=== PATIENT | male | born 1960 ===

== ENCOUNTER 2016-05-22 14:35 | Inpatient (IN) | payer BC, OTHER ==
--- NOTE | 2016-05-22 15:55 | RAD ---
HISTORY: chest pain COMPARISON: 04/22/2014 TECHNIQUE: Chest PA and lateral FINDINGS: LUNGS: There is consolidation in the right upper lobe. There is superior retraction of the horizontal and mild fullness in the right hilum. PLEURA: No significant pleural effusion identified. No pneumothorax apparent. CARDIOVASCULAR: The heart is normal in size. OSSEOUS STRUCTURES: No significant abnormalities. VISUALIZED UPPER ABDOMEN: Normal. OTHER FINDINGS: None. IMPRESSION: Findings are most compatible with right upper lobe pneumonia. Follow-up after medical management is recommended to ensure complete resolution and exclude postobstructive pneumonia related to a central mass.
[2016-05-22 16:17] LABS: BASO % 0.6 % (0.0-2.0); EOS % 0.4 % (0.0-4.0); HEMATOCRIT 46.9 % (35.0-51.0); LYMPH % 15.5 % (20.0-40.0); MEAN CELL VOLUME 82.4 fl (80.0-94.0); MEAN CORPUSCULAR HEMOGLOBIN 27.2 pg (27.0-31.0); MEAN PLATELET VOLUME 8.9 fl (7.2-11.7); MONO # 0.7 K/uL (0.0-0.8); MONO % 10.4 % (0.0-10.0); NEUT # 4.6 K/uL (1.8-7.0); NEUT % 73.1 % (50.0-75.0); RED CELL DISTRIBUTION WIDTH 13.8 % (11.5-14.5); WHITE BLOOD COUNT 6.3 K/uL (4.8-10.8)
[2016-05-22 16:25] LABS: ALKALINE PHOSPHATASE 69 U/L (38-126); ALT/SGPT 40 U/L (21-72); AST/SGOT 104 U/L (17-59); BILIRUBIN,TOTAL 1.2 mg/dl (0.2-1.3); BLOOD UREA NITROGEN 16 mg/dl (9-20); CALCIUM 10.3 mg/dL (8.4-10.2); CARBON DIOXIDE 21 mmol/L (22-30); CHLORIDE 104 mmol/L (98-107); GFR AFRICAN-AMERICAN > 60; GLUCOSE,RANDOM 86 mg/dL (75-110); SODIUM 145 mmol/l (132-148)
[2016-05-22] MEDS ORDERED: Azithromycin 500 MG in Sodium Chloride 0.9% 250 ML IVPB STA (16:46)
--- NOTE | 2016-05-22 16:53 | ED PDOC ---
HPI: Chest Pain Time Seen by Provider: 05/22/16 15:17 Chief Complaint (Nursing): Back Pain Chief Complaint (Provider): Chest Pain History Per: Patient History/Exam Limitations: no limitations Onset/Duration Of Symptoms: Days (x4-5), Persistent Current Symptoms Are (Timing): Still Present Severity: Moderate Associated Symptoms: Dyspnea (mild), Other (trace cough, diffuse myalgias) Exacerbating Factors: Deep Breathing Additional Complaint(s): José Miguel Rubio is a 56 year old male, with a past medical history inclusive of CAD (s/p coronary stent placement, no current medications), HTN and hypercholesterolemia, who presents to the ED on 05/22/16 for the evaluation of moderate left-sided chest pain that has persisted x4-5 days. Pain, further described as radiating to the back with no exertional component, is reportedly worse with deep inspiration and has been accompanied by some mild shortness of breath, a trace cough and some diffuse myalgias. Denies any additional complaints. Of note, patient is an active smoker. PMD: Isma Saxena Past Medical History Reviewed: Historical Data, Nursing Documentation, Vital Signs Vital Signs: Last Vital Signs Temp 98.0 F 05/23/16 08:38 Pulse 66 05/23/16 09:00 Resp 20 05/23/16 08:38 BP 129/76 05/23/16 08:38 Pulse Ox 95 05/23/16 08:38 - Medical History PMH: CAD, HTN, Hypercholesterolemia - Surgical History Surgical History: Coronary Stent - Family History Family History: States: Unknown Family Hx - Social History Current smoker - smoking cessation education provided: Yes Alcohol: None Drugs: Denies - Home Medications Home Medications: Ambulatory Orders Medication Instructions Recorded Alprazolam [Xanax] 0.5 mg PO TID PRN 05/22/16 Levocetirizine Dihydrochloride 5 mg PO DAILY 05/22/16 [Xyzal] Oxycodone HCl/Acetaminophen 1 tab PO Q6H PRN 05/22/16 [Percocet 10-325 mg Tablet] Umeclidinium [place] [Incruse 1 puff IH DAILY 05/22/16 Ellipta] - Allergies Allergies/Adverse Reactions: Allergies Allergy/AdvReac Type Severity Reaction Status Date / Time No Known Allergies Allergy Verified 04/22/14 11:33 Review of Systems ROS Statement: Except As Marked, All Systems Reviewed And Found Negative Cardiovascular: Positive for: Chest Pain (left-sided w/radiation to back, non exertional but worse with deep inspiration) Respiratory: Positive for: Cough (trace), Shortness of Breath (mild) Physical Exam - Reviewed Nursing Documentation Reviewed: Yes Vital Signs Reviewed: Yes - Physical Exam Appears: Positive for: Non-toxic, No Acute Distress Head Exam: Positive for: ATRAUMATIC, NORMOCEPHALIC Skin: Positive for: Normal Color, Warm, Dry Eye Exam: Positive for: Normal appearance, PERRL ENT: Positive for: Normal ENT Inspection Neck: Positive for: Normal, Painless ROM, Supple Cardiovascular/Chest: Positive for: Regular Rate, Rhythm. Negative for: Murmur Respiratory: Positive for: Normal Breath Sounds. Negative for: Other Gastrointestinal/Abdominal: Positive for: Normal Exam, Soft. Negative for: Tenderness Back: Positive for: Normal Inspection Extremity: Positive for: Normal ROM. Negative for: Calf Tenderness, Swelling Neurologic/Psych: Positive for: Alert, Oriented - Laboratory Results Result Diagrams: 05/23/16 09:15 05/23/16 05:35 - ECG ECG: Positive for: Interpreted By Me, Viewed By Me ECG Rhythm: Positive for: Sinus Rhythm. Negative for: ST/T Changes Rate: 93 O2 Sat by Pulse Oximetry: 100 (RA) Pulse Ox Interpretation: Normal - Radiology X-Ray: Viewed By Me, Read By Radiologist X-Ray Interpretation: Infiltrates (right upper lobe pneumonia) Medical Decision Making Medical Decision Makin:17 Initial Impression: chest pain Initial Plan: * EKG * CXR * Reevaluation EKG shows NSR at 93bpm with no acute ST/T changes. 15:53 CXR report reviewed: FINDINGS: LUNGS: There is consolidation in the right upper lobe. There is superior retraction of the horizontal and mild fullness in the right hilum. PLEURA: No significant pleural effusion identified. No pneumothorax apparent. CARDIOVASCULAR: The heart is normal in size. OSSEOUS STRUCTURES: No significant abnormalities. VISUALIZED UPPER ABDOMEN: Normal. OTHER FINDINGS: None. IMPRESSION: Findings are most compatible with right upper lobe pneumonia. Follow-up after medical management is recommended to ensure complete resolution and exclude postobstructive pneumonia related to a central mass. Ordered labs, BNP, Troponin I, PTT, PT and blood cultures as well as administration of Rocephin and Azithromycin IVPB. 16:[address] Saxena, who has requested that a CT Chest w/o contrast also be ordered. Patient will be hospitalized within [facility] under the service of Dr. Saxena for further evaluation/treatment of both chest pain and pneumonia respectively. Plan has been discussed with patient, who is in agreement. Condition fair. Scribe Attestation: Documented by Emilia Albert, acting as a scribe for Jaswinder Miguel III, DO. Provider Scribe Attestation: All medical record entries made by the Scribe were at my direction and personally dictated by me. I have reviewed the chart and agree that the record accurately reflects my personal performance of the history, physical exam, medical decision making, and the department course for this patient. I have also personally directed, reviewed, and agree with the discharge instructions and disposition. Disposition - Clinical Impression Clinical Impression: Pneumonia - Patient ED Disposition Is Patient to be Admitted: Yes Counseled Patient/Family Regarding: Studies Performed - Disposition Disposition Time: 16:52 Condition: FAIR - Pt Status Changed To: Hospital Disposition Of: Observation
--- NOTE | 2016-05-22 17:36 | CT ---
PROCEDURE: CT Chest without contrast HISTORY: smoker RUL opacity CXR COMPARISON: None. TECHNIQUE: Contiguous axial images were obtained through the chest without intravenous contrast enhancement. Sagittal and coronal reconstructions were performed. Radiation dose (DLP): 656 mGy-cm. This CT exam was performed using one or more of the following dose reduction techniques: Automated exposure control, adjustment of the mA and/or kV according to patient size, and/or use of iterative reconstruction technique. FINDINGS: LUNGS: See below MEDIASTINUM: Unremarkable thoracic aorta. No aneurysm. Normal sized heart. Main pulmonary artery unremarkable. No vascular congestion. There is a large right hilar and right mediastinal mass measuring 4 cm in width and 9.6 cm in height by 8.7 cm AP. There is also anterior mediastinal adenopathy with individual nodes measuring 2.5 cm diameter in the short axis. The hilar mass produces some narrowing of the bronchi as seen on image 42 series 3. There is also a separate irregular nodule in the right lung apex measuring 13 x 20 mm. PLEURA: No pleural fluid. No pneumothorax. BONES: No fracture. No destructive lesion. UPPER ABDOMEN: Grossly unremarkable. OTHER FINDINGS: None. IMPRESSION: Large right hilar mass with extensive mediastinal adenopathy. Separate irregular right upper lobe lung nodule. Findings consistent with lung malignancy.
[2016-05-22 18:16] LABS: PARTIAL THROMBOPLASTIN TIME 19.8 SECONDS (23.3-32.5)
--- NOTE | 2016-05-22 18:34 | CP.PCM.CON ---
History of Present Illness - History of Present Illness History of Present Illness: I was asked to see patient by Dr. Saxena. Patient is a 56 year old male with a PMH HTN, CAD s/p coronary intervention, who presents with chest pain. The patient describes upper chest pain which radiates to the back. The symptoms began about to 2 days ago. He thought symptoms would improve however there was a progression of pain. He denies fever cough dyspnea. Review of Systems - Constitutional Constitutional: absent: As Per HPI, Anorexia, Chills, Daytime Sleepiness, Excessive Sweating, Fatigue, Fever, Frequent Falls, Headache, Increased Appetite , Lethargy, Malaise, Night Sweats, Snoring, Sleep Apnea, Weight Gain, Weight Loss, Weakness, Other - EENT Eyes: absent: As Per HPI, Blind Spots, Blurred Vision, Change in Vision, Decreased Night Vision, Diplopia, Discharge, Dry Eye, Exophthalmos, Floaters, Irritation, Itchy Eyes, Loss of Peripheral Vision, Pain, Photophobia, Requires Corrective Lenses, Sees Flashes, Spots in Vision, Tunnel Vision, Other Visual Disturbances, Loss of Vision, Other Ears: absent: As Per HPI, Decreased Hearing, Ear Discharge, Ear Pain, Tinnitus, Abnormal Hearing, Disequilibrium, Dizziness, Other Nose/Mouth/Throat: absent: As Per HPI, Epistaxis, Nasal Congestion, Nasal Discharge, Nasal Obstruction, Nasal Trauma, Nose Pain, Post Nasal Drip, Sinus Pain, Sinus Pressure, Bleeding Gums, Change in Voice, Dental Pain, Dry Mouth, Dysphagia, Halitosis, Hoarsness, Lip Swelling, Mouth Lesions, Mouth Pain, Odynophagia, Sore Throat, Throat Swelling, Tongue Swelling, Facial Pain, Neck Pain, Neck Mass, Other - Cardiovascular Cardiovascular: absent: As Per HPI, Acrocyanosis, Chest Pain, Chest Pain at Rest , Chest Pain with Activity, Claudication, Diaphoresis, Dyspnea, Dyspnea on Exertion, Edema, Irregular Heart Rhythm, Pain Radiating to Arm/Neck/Jaw, Leg Edema, Leg Ulcers, Lightheadedness, Orthopnea, Palpitations, Paroxysmal Nocturnal Dyspnea, Pedal Edema, Radiating Pain, Rapid Heart Rate, Slow Heart Rate, Syncope, Other - Gastrointestinal Gastrointestinal: absent: As Per HPI, Abdominal Pain, Belching, Bloating, Change in Bowel Habits, Change in Stool Character, Coffee Ground Emesis, Constipation, Cramping, Diarrhea, Dyspepsia, Dysphagia, Early Satiety, Excessive Flatus, Fecal Incontinence, Heartburn, Hematemesis, Hematochezia, Loose Stools, Melena, Nausea, Odynophagia, Temesmus, Vomiting, Other - Genitourinary Genitourinary: absent: As Per HPI, Change in Urinary Stream, Difficulty Urinating, Dysuria, Flank Pain, Hematuria, Pyuria, Nocturia, Urinary Incontinence, Urinary Frequency, Urinary Hesitance, Urinary Urgency, Voiding Freq/Small Amts, Freq UTI, Hx Renal/Bladder Calculi, Hx /Renal Surgery, Bladder Distension, Other - Musculoskeletal Musculoskeletal: absent: As Per HPI, Abnormal Gait, Arthralgias, Atrophy, Back Pain, Deformity, Joint Swelling, Limited Range of Motion, Loss of Height, Muscle Cramps, Muscle Weakness, Myalgias, Neck Pain, Numbness, Radiating Pain into Limb, Stiffness, Tingling, Other - Integumentary Integumentary: absent: As Per HPI, Acne, Alopecia, Bleeding Lesions, Change in Hair, Change in Nails, Change in Pigmentation, Changing Lesions, Dry Skin, Erythema, Furuncle, Hirsutism, Lesions, New Lesions, Non-Healing Lesions, Photosensitivity, Pruritus, Rash, Skin Pain, Skin Ulcer, Sores, Striae, Swelling , Unusual Bruising, Wounds, Jaundice, Other - Neurological Neurological: absent: As Per HPI, Abnormal Gait, Abnormal Hearing, Abnormal Movements, Abnormal Speech, Behavioral Changes, Burning Sensations, Confusion, Convulsions, Disequilibrium, Dizziness, Numbness, Focal Weakness, Frequent Falls , Headaches, Lack of Coordination, Loss of Vision, Memory Loss, Paresthesias, Radicular Pain, Restless Legs, Sensory Deficit, Syncope, Tingling, Tremor, Vertigo, Weakness, Other Visual Disturbances, Other - Psychiatric Psychiatric: absent: As Per HPI, Abnormal Sleep Pattern, Anhedonia, Anxiety, Auditory Hallucinations, Behavioral Changes, Change in Appetite, Change in Libido, Confusion, Depression, Difficulty Concentrating, Hallucinations, Homicidal Ideation, Hopelessness, Irritability, Memory Loss, Mood Swings, Panic Attacks, Paranoia, Suicidal Ideation, Visual Hallucinations, Tactile Hallucinations, Other - Endocrine Endocrine: absent: As Per HPI, Change in Body Appearance, Change in Libido, Cold Intolorance, Deepening of Voice, Excessive Sweating, Fatigue, Flushing, Heat Intolorance, Increase in Ring/Shoe/Hat Size, Palpitations, Polydipsia, Polyphagia, Polyuria, Other - Hematologic/Lymphatic Hematologic: absent: As Per HPI, Easy Bleeding, Easy Bruising, Lymphadenopathy, Other Past Patient History - Infectious Disease Hx of Infectious Diseases: None - Past Social History Alcohol: None Drugs: Denies - CARDIAC Hx Hypercholesterolemia: Yes Hx Hypertension: Yes - HEMATOLOGICAL/ONCOLOGICAL Hx Hepatitis C: Yes - PSYCHIATRIC Hx Substance Use: No - SURGICAL HISTORY Hx Coronary Stent: Yes - ANESTHESIA Hx Anesthesia: Yes Hx Anesthesia Reactions: No Meds Allergies/Adverse Reactions: Allergies Allergy/AdvReac Type Severity Reaction Status Date / Time No Known Allergies Allergy Verified 04/22/14 11:33 - Medications Medications: Current Medications Ceftriaxone Sodium 1 gm/ (Sodium Chloride) 100 mls @ 100 mls/hr IVPB DAILY RYAN Physical Exam - Constitutional Appears: Non-toxic - Head Exam Head Exam: NORMAL INSPECTION - Eye Exam Eye Exam: Normal appearance - ENT Exam ENT Exam: Mucous Membranes Moist - Neck Exam Neck exam: Positive for: Full Rom - Respiratory Exam Respiratory Exam: Decreased Breath Sounds - Cardiovascular Exam Cardiovascular Exam: REGULAR RHYTHM - GI/Abdominal Exam GI & Abdominal Exam: Normal Bowel Sounds - Rectal Exam Rectal Exam: Deferred - Extremities Exam Extremities exam: Positive for: pedal edema - Back Exam Back exam: NORMAL INSPECTION - Neurological Exam Neurological exam: Alert, Oriented x3 - Psychiatric Exam Psychiatric exam: Normal Affect - Skin Skin Exam: Normal Color Results - Vital Signs Recent Vital Signs: Last Vital Signs Temp 98.4 F 05/22/16 17:52 Pulse 72 05/22/16 17:52 Resp 18 05/22/16 17:52 BP 135/78 05/22/16 17:52 Pulse Ox 97 05/22/16 17:52 - Labs Result Diagrams: 05/22/16 16:00 05/22/16 16:00 - EKG Data EKG Interpreted by: Myself EKG shows normal: Sinus rhythm Assessment & Plan (1) Chest pain Assessment and Plan: seems atypical for angina. The patient has a lung mass seen on CXR and CT scan. This is possibly the cause of his symptoms. Dr. Odessa livingston Status: Acute (2) CAD (coronary artery disease) Assessment and Plan: history of coronary stent Status: Acute (3) HTN (hypertension) Assessment and Plan: will follow blood pressure Status: Acute
[2016-05-22] MEDS: Oxycodone/Acetaminophen 5/325 mg Tab PO PRN (23:54)
[2016-05-23 07:23] LABS: ALB/GLOB RATIO 1.1 (1.0-2.1); ALKALINE PHOSPHATASE 84 U/L (38-126); ALT/SGPT 48 U/L (21-72); AST/SGOT 91 U/L (17-59); BILIRUBIN,TOTAL 0.6 mg/dl (0.2-1.3); BLOOD UREA NITROGEN 22 mg/dl (9-20); CALCIUM 10.3 mg/dL (8.4-10.2); CARBON DIOXIDE 26 mmol/L (22-30); CHLORIDE 103 mmol/L (98-107); CHOLESTEROL 204 mg/dL (0-199); GFR AFRICAN-AMERICAN > 60; GLUCOSE,RANDOM 96 mg/dL (75-110); POTASSIUM 4.1 MMOL/L (3.6-5.0); SODIUM 147 mmol/l (132-148); TOTAL PROTEIN 8.5 G/DL (6.3-8.2)
[2016-05-23 07:53] LABS: THYROID STIMULATING HORMONE 1.44 mIU/ML (0.46-4.68)
[2016-05-23 09:35] LABS: BASO % 0.4 % (0.0-2.0); EOS # 0.1 K/uL (0.0-0.7); EOS % 1.2 % (0.0-4.0); HEMATOCRIT 45.6 % (35.0-51.0); LYMPH # 1.1 K/uL (1.0-4.3); MEAN CELL VOLUME 81.8 fl (80.0-94.0); MEAN CORPUSCULAR HEMOGLOBIN 27.4 pg (27.0-31.0); MEAN CORPUSCULAR HGB CONC 33.6 g/dL (33.0-37.0); MEAN PLATELET VOLUME 8.6 fl (7.2-11.7); MONO # 0.6 K/uL (0.0-0.8); MONO % 10.6 % (0.0-10.0); NEUT # 3.6 K/uL (1.8-7.0); NEUT % 67.8 % (50.0-75.0); NRBC % 0.1 % (0.0-0.0); RED CELL DISTRIBUTION WIDTH 13.8 % (11.5-14.5); WHITE BLOOD COUNT 5.4 K/uL (4.8-10.8)
[2016-05-23] MEDS ORDERED: Sodium Chloride 0.9% 50 ML IV ONE (09:49)
[2016-05-23] MEDS ORDERED: Iohexol 300 100 ML IJ ONE (09:49)
[2016-05-23] MEDS: Azithromycin 500 MG in Sodium Chloride 0.9% 250 ML IVPB SCH (10:22)
--- NOTE | 2016-05-23 10:29 | CT ---
PROCEDURE: CT HEAD WITHOUT CONTRAST. HISTORY: Headache COMPARISON: None available. TECHNIQUE: Axial computed tomography images were obtained through the head/brain without intravenous contrast. Radiation dose: Total exam DLP = 1203.29 mGy-cm. This CT exam was performed using one or more of the following dose reduction techniques: Automated exposure control, adjustment of the mA and/or kV according to patient size, and/or use of iterative reconstruction technique. FINDINGS: HEMORRHAGE: No intracranial hemorrhage. BRAIN: [place]-white matter differentiation is preserved. There is no mass, mass effect or abnormal extra-axial fluid collection. There is normal density in the larger dural venous sinuses. VENTRICLES: The ventricles are normal in size, shape and configuration. CALVARIUM: The skull base and calvarium are normal. PARANASAL SINUSES: Predominantly clear. MASTOID AIR CELLS: Predominantly clear. OTHER FINDINGS: None. IMPRESSION: No acute intracranial abnormality.
[2016-05-23 11:30] LABS: BASO % 0.4 % (0.0-2.0); EOS # 0.1 K/uL (0.0-0.7); EOS % 1.4 % (0.0-4.0); HEMATOCRIT 42.8 % (35.0-51.0); LYMPH # 1.1 K/uL (1.0-4.3); LYMPH % 18.2 % (20.0-40.0); MEAN CELL VOLUME 80.8 fl (80.0-94.0); MEAN CORPUSCULAR HEMOGLOBIN 27.2 pg (27.0-31.0); MEAN CORPUSCULAR HGB CONC 33.7 g/dL (33.0-37.0); MEAN PLATELET VOLUME 8.3 fl (7.2-11.7); MONO # 0.8 K/uL (0.0-0.8); MONO % 12.7 % (0.0-10.0); NEUT # 4.1 K/uL (1.8-7.0); NEUT % 67.3 % (50.0-75.0); NRBC % 0.3 % (0.0-0.0); RED CELL DISTRIBUTION WIDTH 13.4 % (11.5-14.5); WHITE BLOOD COUNT 6.2 K/uL (4.8-10.8)
--- NOTE | 2016-05-23 11:35 | CT ---
PROCEDURE: CT Chest, Abdomen and Pelvis with intravenous contrast HISTORY: r/o mass malignancy, pheumonia COMPARISON: None. TECHNIQUE: IV dose administered: Radiation dose: Total exam DLP = mGy-cm. This CT exam was performed using one or more of the following dose reduction techniques: Automated exposure control, adjustment of the mA and/or kV according to patient size, and/or use of iterative reconstruction technique. FINDINGS: CT CHEST WITH CONTRAST: LUNGS: At least 2 right upper lobe subpleural infiltrates are noted. Superimposed emphysema is present.. MEDIASTINUM: Unremarkable. Normal caliber aorta and pulmonary arterial trunk. No aortic dissection. Normal size heart. LYMPH NODES: Again noted is extensive anterior, right peritracheal and subcarinal lymphadenopathy in association with a large right hilar mass measuring roughly 4.6 centimeters. Right paratracheal lymph node measures up to 3.7 centimeters. Overall this appears slightly larger when compared to prior examination. PLEURA: Unremarkable. No pneumothorax. No pleural fluid. BONES: Unremarkable. OTHER FINDINGS: None. CT ABDOMEN AND PELVIS: LIVER: Unremarkable. No gross lesion or ductal dilatation. GALLBLADDER AND BILE DUCTS: Unremarkable. PANCREAS: Unremarkable. No gross lesion or ductal dilatation. SPLEEN: Unremarkable. ADRENALS: Unremarkable. No mass. KIDNEYS AND URETERS: Unremarkable. No hydronephrosis. No solid mass. VASCULATURE: Unremarkable. No aortic aneurysm. BOWEL: Unremarkable. No obstruction. No gross mural thickening. APPENDIX: Normal appendix. PERITONEUM: Unremarkable. No free fluid. No free air. LYMPH NODES: Unremarkable. No enlarged lymph nodes. BLADDER: Unremarkable. REPRODUCTIVE: Unremarkable. BONES: No acute fracture. OTHER FINDINGS: Left fat containing inguinal hernia. IMPRESSION: Re-demonstration of severe mediastinal lymphadenopathy with suggestion of worsening tumor burden as well as increase in size of a right hilar mass measuring roughly 4.6 centimeters with right upper lobe parenchymal infiltrates.
[2016-05-23] MEDS: Lactobacillus Acidophilus 500 MU Cap PO SCH ×2 (11:39→17:28)
--- NOTE | 2016-05-23 15:45 | CP.PCM.HP ---
History of Present Illness - History of Present Illness History of Present Illness: CC: Chest pain. 56 y/o M, came to ER [facility] to be evaluated for Chest pain, onset 10 days [employer] with no relief. Pt appear in hospital c/o of L Chest pain increased in DOA, pain is constant, sharp, intensity moderate at times severe severe (6:10 to 10:10). radiated to L posterior Hemitorax, L Scapular with no SOB, no GARRETT, no Hemoptysis. Associated to upper back pain. Worsening symptoms: Headache Aggravated factor: Deep breathing, back movements. Pt heavy smoker, 1 PPD quit few month ago. Pt denied: Chronic cough, fever, chills, numbness, syncope, blurred vision, n/v /d, abdominal pain, dizziness, urinary symptoms, sick contact, recent travel. PMHx: Chronic Lumbago, Pain L Foot, CAD S/P Coronary stent, HTN, Dyslipidemia, Anxiety. Denied Hx of Bronchial Asthma. CT Chest shows: R large Hilar Mass with some infiltrate upper lobe, could be post obstructive PNA. RUL Ronchi appear narrow by Tumor. CT Abd/Pelv showing the Liver with multiple hepatic Metastasis. CT Head: No intracranial abnormality. EKG: Normal sinus rhythm. Present on Admission - Present on Admission Any Indicators Present on Admission: No Review of Systems - Constitutional Constitutional: Headache - EENT Eyes: Other (negative) Ears: Other (negative) Nose/Mouth/Throat: Other (negative) - Cardiovascular Cardiovascular: Chest Pain (L side). absent: Leg Edema - Respiratory Respiratory: absent: Cough, Dyspnea, Dyspnea on Exertion - Gastrointestinal Gastrointestinal: Other (negative) - Genitourinary Genitourinary: Other (ngative) - Musculoskeletal Musculoskeletal: Back Pain - Integumentary Integumentary: Other (negative) - Neurological Neurological: Headaches - Psychiatric Psychiatric: Anxiety - Endocrine Endocrine: Other (negative) - Hematologic/Lymphatic Hematologic: Other (negative) Past Patient History - Infectious Disease Hx of Infectious Diseases: None - Past Medical History & Family History Past Medical History?: Yes - Past Social History Smoking Status: Heavy Smoker > 10 Cigarettes Daily Alcohol: Social Drugs: Denies Home Situation {Lives}: Alone - CARDIAC Hx Cardiac Disorders: Yes Hx Hypercholesterolemia: Yes Hx Hypertension: Yes - PULMONARY Hx Respiratory Disorders: No Other/Comment: current smoker - NEUROLOGICAL Hx Neurological Disorder: No - HEENT Hx HEENT Problems: No - RENAL Hx Chronic Kidney Disease: No - ENDOCRINE/METABOLIC Hx Endocrine Disorders: No - HEMATOLOGICAL/ONCOLOGICAL Hx Blood Disorders: Yes Hx Hepatitis C: Yes - INTEGUMENTARY Hx Dermatological Problems: No - MUSCULOSKELETAL/RHEUMATOLOGICAL Hx Musculoskeletal Disorders: Yes (L foot pain s/p ORIF 2nd to Fx.) Hx Back Pain: Yes Hx Falls: No - GASTROINTESTINAL Hx Gastrointestinal Disorders: No - GENITOURINARY/GYNECOLOGICAL Hx Genitourinary Disorders: No - PSYCHIATRIC Hx Psychophysiologic Disorder: Yes Hx Anxiety: Yes Hx Substance Use: No (denies) - SURGICAL HISTORY Hx Surgeries: Yes Hx Coronary Stent: Yes - ANESTHESIA Hx Anesthesia: Yes Hx Anesthesia Reactions: No Meds Allergies/Adverse Reactions: Allergies Allergy/AdvReac Type Severity Reaction Status Date / Time No Known Allergies Allergy Verified 04/22/14 11:33 Physical Exam - Constitutional Appears: Chronically Ill - Head Exam Head Exam: NORMAL INSPECTION - Eye Exam Eye Exam: PERRL - ENT Exam ENT Exam: Normal Exam - Neck Exam Neck exam: Positive for: Normal Inspection - Respiratory Exam Additional comments: Tenderness L/U lateral pectoral area and lower L ribs area to palpation. - Cardiovascular Exam Cardiovascular Exam: REGULAR RHYTHM - GI/Abdominal Exam GI & Abdominal Exam: Normal Bowel Sounds, Soft - Extremities Exam Extremities exam: Positive for: normal inspection - Back Exam Back exam: tenderness (L-S) - Neurological Exam Neurological exam: Alert, Oriented x3 Additional comments: No motor sensory deficit - Psychiatric Exam Psychiatric exam: Anxious - Skin Skin Exam: Normal Color, Warm Results - Vital Signs Recent Vital Signs: Last Vital Signs Temp 98.0 F 05/23/16 08:38 Pulse 66 05/23/16 09:00 Resp 20 05/23/16 08:38 BP 129/76 05/23/16 08:38 Pulse Ox 95 05/23/16 08:38 reviewed J.P. - Labs Result Diagrams: 05/24/16 06:30 05/24/16 06:30 Labs: reviewed J.P. - EKG Data EKG comments: reviewed J.P. - Imaging and Cardiology Chest x-ray Status: Report reviewed by me (Nayeli) CT scan - chest Status: Report reviewed by me (Nayeli) CT scan - abdomen Status: Report reviewed by me (Nayeli) CT scan - pelvis Status: Report reviewed by me (Nayeli) CT scan - head Status: Report reviewed by me (Nayeli) Assessment & Plan (1) Neoplasm of lung, upper lobe, malignant Status: Acute Comment: Right side. (2) Malignant neoplasm metastatic to liver Status: Acute Priority: High (3) CAD (coronary artery disease) Status: Chronic Priority: Medium (4) HTN (hypertension) Status: Chronic Priority: Medium (5) Hx of hepatitis C Status: Chronic (6) Chronic lumbosacral pain Status: Chronic Priority: High (7) Chronic foot pain Status: Chronic Priority: High (8) Anxiety Status: Chronic Priority: High - Assessment and Plan (Free Text) Plan: Raz Crawley Zithromax, Hematology consult, f/u FOB Bx next Thursday. - Date & Time Date: 05/23/16
--- NOTE | 2016-05-23 19:39 | CARD ---
APPROVED REPORT EKG Measurement Heart [id number] <Conclusion> Normal sinus rhythm Normal ECG
[2016-05-23] MEDS: Oxycodone/Acetaminophen 5/325 mg Tab PO PRN (20:58)
[2016-05-24 07:55] LABS: BASO % 0.3 % (0.0-2.0); EOS # 0.1 K/uL (0.0-0.7); EOS % 1.5 % (0.0-4.0); HEMATOCRIT 42.1 % (35.0-51.0); LYMPH # 1.1 K/uL (1.0-4.3); MEAN CELL VOLUME 80.8 fl (80.0-94.0); MEAN CORPUSCULAR HEMOGLOBIN 27.2 pg (27.0-31.0); MEAN CORPUSCULAR HGB CONC 33.7 g/dL (33.0-37.0); MEAN PLATELET VOLUME 9.1 fl (7.2-11.7); MONO # 0.7 K/uL (0.0-0.8); MONO % 11.2 % (0.0-10.0); NEUT # 4.6 K/uL (1.8-7.0); NRBC % 0.1 % (0.0-0.0); RED CELL DISTRIBUTION WIDTH 13.5 % (11.5-14.5); WHITE BLOOD COUNT 6.5 K/uL (4.8-10.8)
[2016-05-24 08:05] LABS: ALB/GLOB RATIO 1.2 (1.0-2.1); ALKALINE PHOSPHATASE 77 U/L (38-126); ALT/SGPT 61 U/L (21-72); AST/SGOT 102 U/L (17-59); BILIRUBIN,TOTAL 0.6 mg/dl (0.2-1.3); BLOOD UREA NITROGEN 19 mg/dl (9-20); CALCIUM 10.2 mg/dL (8.4-10.2); CARBON DIOXIDE 26 mmol/L (22-30); CHLORIDE 103 mmol/L (98-107); GFR AFRICAN-AMERICAN > 60; GLUCOSE,RANDOM 90 mg/dL (75-110); POTASSIUM 4.1 MMOL/L (3.6-5.0); SODIUM 144 mmol/l (132-148); TOTAL PROTEIN 7.7 G/DL (6.3-8.2)
[2016-05-24] MEDS: Azithromycin 500 MG in Sodium Chloride 0.9% 250 ML IVPB SCH (08:34)
[2016-05-24] MEDS: Lactobacillus Acidophilus 500 MU Cap PO SCH ×2 (08:36→16:23)
--- NOTE | 2016-05-24 11:20 | CP.PCM.CON ---
History of Present Illness - History of Present Illness History of Present Illness: This is a 56 yrs old male who was brought to the ER with c/o severe chest pain on the left side of the chest and the center of the chest. He has a past h/o CAD for which he had a stent placed. The EKG did not show evidence of a recent DE. He also has h/o hepatitis C about 15 yrs ago and was treated for the same. He had a CT scan of the chest in the ER and was found to have a large mass in the mediastinum and hilar area.There are also 2 nodules in the right upper lung field. He still c/o pain , but no fever, chills or night sweats. He has been a smoker for about 30 yrs , smokes 1pack per day alcohol intake is rare. Past Patient History - Infectious Disease Hx of Infectious Diseases: None - Past Medical History & Family History Past Medical History?: Yes - Past Social History Smoking Status: Heavy Smoker > 10 Cigarettes Daily - CARDIAC Hx Hypercholesterolemia: Yes Hx Hypertension: Yes - PULMONARY Other/Comment: current smoker - HEMATOLOGICAL/ONCOLOGICAL Hx Hepatitis C: Yes - MUSCULOSKELETAL/RHEUMATOLOGICAL Hx Falls: No - PSYCHIATRIC Hx Substance Use: No (denies) - SURGICAL HISTORY Hx Coronary Stent: Yes - ANESTHESIA Hx Anesthesia: Yes Hx Anesthesia Reactions: No Meds Allergies/Adverse Reactions: Allergies Allergy/AdvReac Type Severity Reaction Status Date / Time No Known Allergies Allergy Verified 04/22/14 11:33 - Medications Medications: Current Medications Alprazolam (Xanax) 0.5 mg PO TID PRN PRN Reason: Anxiety Hydromorphone HCl (Dilaudid) 1 mg IVP Q4 PRN PRN Reason: Pain, severe (8-10) Last Admin: 05/24/16 11:06 Dose: 1 mg Ceftriaxone Sodium 1 gm/ (Sodium Chloride) 100 mls @ 100 mls/hr IVPB DAILY [facility] Last Admin: 05/24/16 08:33 Dose: 100 mls/hr Azithromycin 500 mg/ Sodium (Chloride) 250 mls @ 250 mls/hr IVPB DAILY [facility] Last Admin: 05/24/16 08:34 Dose: 250 mls/hr Lactobacillus Acidophilus (Bacid Acidophilus) 1 cap PO BID [facility] Last Admin: 05/24/16 08:36 Dose: 1 cap Oxycodone/Acetaminophen (Percocet 5/325 Mg Tab) 1 tab PO Q6 PRN PRN Reason: Pain, moderate (4-7) Stop: 05/25/16 20:04 Last Admin: 05/22/16 23:54 Dose: 1 tab Physical Exam - Additional Findings Additional findings: Physical exam; Alert. well oriented in no acute distress Neck; Supple, no adenopathy Chest; Air entry is poor bilaterally, no rales or rhonchi Heart; RSR, no murmur Abd; Soft, no mass or h/s megaly Results - Vital Signs Recent Vital Signs: Last Vital Signs Temp 97.8 F 05/24/16 08:00 Pulse 69 05/24/16 08:00 Resp 18 05/24/16 08:00 BP 118/67 05/24/16 08:00 Pulse Ox 96 05/24/16 08:00 - Labs Result Diagrams: 05/24/16 06:30 05/24/16 06:30 Labs: Laboratory Results - last 24 hr 05/24/16 06:30 WBC 6.5 RBC 5.21 Hgb 14.2 Hct 42.1 MCV 80.8 MCH 27.2 MCHC 33.7 RDW 13.5 Plt Count 100 L MPV 9.1 Neut % (Auto) 70.0 Lymph % (Auto) 17.0 L [place] % (Auto) 11.2 H Eos % (Auto) 1.5 Baso % (Auto) 0.3 Neut # 4.6 Lymph # 1.1 [place] # 0.7 Eos # 0.1 Baso # 0.0 Sodium 144 Potassium 4.1 Chloride 103 Carbon Dioxide 26 Anion Gap 19 BUN 19 Creatinine 0.8 Est GFR ( Amer) > 60 Est GFR (Non-Af Amer) > 60 Random Glucose 90 Calcium 10.2 Total Bilirubin 0.6 AST 102 H ALT 61 Alkaline Phosphatase 77 Lactate Dehydrogenase 5912 H Total Protein 7.7 Albumin 4.2 Globulin 3.5 Albumin/Globulin Ratio 1.2 Free T4 1.26 HIV-1 Ab Rapid Screen Non reactive Assessment & Plan - Assessment and Plan (Free Text) Assessment: Impression; Large mediastinal and hilar mass, most probably lymphoma. H/O hepatitis C Plan: Plan; Will await the result of the biopsy to be done on Thursday. - Date & Time Date: 05/24/16 Time: 11:27
--- NOTE | 2016-05-24 14:36 | CP.PCM.PN ---
Subjective - Date & Time of Evaluation Date of Evaluation: 05/24/16 - Subjective Subjective: F/U RUL Neoplasm Pt c/o of left side chest pain, radiated to left scapular, no SONB, no GARRETT, no cough. Objective - Vital Signs/Intake and Output Vital Signs (last 24 hours): Temp Pulse Resp BP Pulse Ox 98 F 71 18 133/75 100 05/24/16 12:20 05/24/16 12:20 05/24/16 12:20 05/24/16 12:20 05/24/16 12:20 - Medications Medications: Current Medications Alprazolam (Xanax) 0.5 mg PO TID PRN PRN Reason: Anxiety Last Admin: 05/24/16 12:32 Dose: 0.5 mg Hydromorphone HCl (Dilaudid) 2 mg IVP Q4H PRN PRN Reason: Pain, severe (8-10) Ceftriaxone Sodium 1 gm/ (Sodium Chloride) 100 mls @ 100 mls/hr IVPB DAILY [facility] Last Admin: 05/24/16 08:33 Dose: 100 mls/hr Azithromycin 500 mg/ Sodium (Chloride) 250 mls @ 250 mls/hr IVPB DAILY [facility] Last Admin: 05/24/16 08:34 Dose: 250 mls/hr Lactobacillus Acidophilus (Bacid Acidophilus) 1 cap PO BID [facility] Last Admin: 05/24/16 08:36 Dose: 1 cap Oxycodone HCl (Oxycodone Immediate Release Tab) 10 mg PO Q4H PRN PRN Reason: Pain, moderate (4-7) - Labs Labs: 05/24/16 06:30 05/24/16 06:30 PT 10.7 SECONDS (9.6-11.2) 05/23/16 05:35 INR 1.03 (0.92-1.08) 05/23/16 05:35 APTT 24.0 SECONDS (23.3-32.5) 05/23/16 05:35 - Constitutional Appears: Chronically Ill - Head Exam Head Exam: NORMAL INSPECTION - Eye Exam Eye Exam: PERRL - ENT Exam ENT Exam: Normal Oropharynx - Neck Exam Neck Exam: Normal Inspection - Respiratory Exam Respiratory Exam: NORMAL BREATHING PATTERN Additional comments: tenderness LIZETH lateral area and lower L ribs area to palpation. - Cardiovascular Exam Cardiovascular Exam: REGULAR RHYTHM - GI/Abdominal Exam GI & Abdominal Exam: Soft, Normal Bowel Sounds - Extremities Exam Extremities Exam: Normal Inspection - Back Exam Back Exam: tenderness (L-S) - Neurological Exam Neurological Exam: Alert, Oriented x3 Additional comments: No motor sensory deficit. - Psychiatric Exam Psychiatric exam: Anxious - Skin Skin Exam: Normal Color, Warm Assessment and Plan (1) Neoplasm of lung, upper lobe, malignant Status: Acute (2) Malignant neoplasm metastatic to liver Status: Acute (3) CAD (coronary artery disease) Status: Chronic (4) HTN (hypertension) Status: Chronic (5) Hx of hepatitis C Status: Chronic (6) Chronic lumbosacral pain Status: Chronic (7) Chronic foot pain Status: Chronic (8) Anxiety Status: Chronic - Assessment and Plan (Free Text) Plan: Continue Dilaudid, Percocet and rest of Tx. For FOB on Thursday.
[2016-05-24 17:34] LABS: FT3 4.56 pg/mL (2.77-5.27)
[2016-05-24] MEDS: oxyCODONE 5 mg Immediate Release Tab PO PRN (20:58)
[2016-05-25] MEDS: Lactobacillus Acidophilus 500 MU Cap PO SCH ×2 (08:57→17:09)
[2016-05-25] MEDS: oxyCODONE 5 mg Immediate Release Tab PO PRN ×2 (10:30→20:14)
[2016-05-25] MEDS: Azithromycin 500 MG in Sodium Chloride 0.9% 250 ML IVPB SCH (12:03)
--- NOTE | 2016-05-25 19:58 | CP.PCM.PN ---
Subjective - Date & Time of Evaluation Date of Evaluation: 05/25/16 - Subjective Subjective: F/U RUL Neoplasm. No SOB , no cough ,complains of pain L hemithorax , L back Objective - Vital Signs/Intake and Output Vital Signs (last 24 hours): Temp Pulse Resp BP Pulse Ox 97.6 F 73 18 138/87 96 05/25/16 16:50 05/25/16 16:50 05/25/16 16:50 05/25/16 16:50 05/25/16 16:50 - Medications Medications: Current Medications Alprazolam (Xanax) 0.5 mg PO TID PRN PRN Reason: Anxiety Last Admin: 05/25/16 16:37 Dose: 0.5 mg Hydromorphone HCl (Dilaudid) 2 mg IVP Q4H PRN PRN Reason: Pain, severe (8-10) Last Admin: 05/25/16 16:37 Dose: 2 mg Ceftriaxone Sodium 1 gm/ (Sodium Chloride) 100 mls @ 100 mls/hr IVPB DAILY [facility] Last Admin: 05/25/16 12:04 Dose: 100 mls/hr Azithromycin 500 mg/ Sodium (Chloride) 250 mls @ 250 mls/hr IVPB DAILY [facility] Last Admin: 05/25/16 12:03 Dose: 250 mls/hr Lactobacillus Acidophilus (Bacid Acidophilus) 1 cap PO BID [facility] Last Admin: 05/25/16 17:09 Dose: 1 cap Oxycodone HCl (Oxycodone Immediate Release Tab) 10 mg PO Q4H PRN PRN Reason: Pain, moderate (4-7) Last Admin: 05/25/16 10:30 Dose: 10 mg - Labs Labs: 05/24/16 06:30 05/24/16 06:30 PT 10.7 SECONDS (9.6-11.2) 05/23/16 05:35 INR 1.03 (0.92-1.08) 05/23/16 05:35 APTT 24.0 SECONDS (23.3-32.5) 05/23/16 05:35 - Head Exam Head Exam: NORMAL INSPECTION - Eye Exam Eye Exam: PERRL - ENT Exam ENT Exam: Normal Oropharynx - Neck Exam Neck Exam: Normal Inspection - Respiratory Exam Additional comments: Tenderness L/U lateral pectoral area and lower L ribs area on palpation. - Cardiovascular Exam Cardiovascular Exam: REGULAR RHYTHM - GI/Abdominal Exam GI & Abdominal Exam: Soft, Normal Bowel Sounds - Extremities Exam Extremities Exam: Normal Inspection - Back Exam Back Exam: tenderness (L-S) - Neurological Exam Neurological Exam: Alert, Oriented x3. absent: Motor Sensory Deficit - Psychiatric Exam Psychiatric exam: Anxious - Skin Skin Exam: Warm Assessment and Plan (1) Neoplasm of lung, upper lobe, malignant Status: Acute (2) Malignant neoplasm metastatic to liver Status: Acute (3) CAD (coronary artery disease) Status: Chronic (4) HTN (hypertension) Status: Chronic (5) Hx of hepatitis C Status: Chronic (6) Chronic lumbosacral pain Status: Chronic (7) Chronic foot pain Status: Chronic (8) Anxiety Status: Chronic - Assessment and Plan (Free Text) Plan: Contunue Dilaudid , Percocet , Zithromax , Rocephin , for Bronchoscopy am
[2016-05-26] MEDS ORDERED: Sodium Chloride 0.9% 10 ML IV ONE (07:12)
[2016-05-26] MEDS ORDERED: EPINEPHrine 1 mg/ml (1:1000) Inj ONE (07:12)
[2016-05-26] MEDS ORDERED: Lidocaine 1% Inj (20ml) ONE ×2 (07:12→10:58)
[2016-05-26] MEDS ORDERED: Lidocaine 2% Jelly (5 ml) TOP ONE ×2 (07:13→10:41)
[2016-05-26] MEDS: Lactobacillus Acidophilus 500 MU Cap PO SCH ×2 (08:32→16:31)
[2016-05-26] MEDS: Azithromycin 500 MG in Sodium Chloride 0.9% 250 ML IVPB SCH (08:33)
[2016-05-26 09:01] LABS: PARTIAL THROMBOPLASTIN TIME 23.9 SECONDS (23.3-32.5)
--- NOTE | 2016-05-26 10:06 | CP.PCM.PN ---
Subjective - Date & Time of Evaluation Date of Evaluation: 05/26/16 (N) Time of Evaluation: 10:05 - Subjective Subjective: pT IS GOING TO HAVE A BRONCHOSCOPY BIOPSY TODAY. fURTHER TREATMENT DECISIONS TO DEPEND OMN THE RESULTS OF THE SAME. Objective - Vital Signs/Intake and Output Vital Signs (last 24 hours): Temp Pulse Resp BP Pulse Ox 98.1 F 76 20 122/78 95 05/26/16 09:00 05/26/16 09:00 05/26/16 09:00 05/26/16 09:00 05/26/16 09:00 - Medications Medications: Current Medications Alprazolam (Xanax) 0.5 mg PO TID PRN PRN Reason: Anxiety Last Admin: 05/25/16 23:17 Dose: 0.5 mg Hydromorphone HCl (Dilaudid) 2 mg IVP Q4H PRN PRN Reason: Pain, severe (8-10) Last Admin: 05/26/16 08:32 Dose: 2 mg Ceftriaxone Sodium 1 gm/ (Sodium Chloride) 100 mls @ 100 mls/hr IVPB DAILY [facility] Last Admin: 05/26/16 08:32 Dose: 100 mls/hr Azithromycin 500 mg/ Sodium (Chloride) 250 mls @ 250 mls/hr IVPB DAILY [facility] Last Admin: 05/26/16 08:33 Dose: 250 mls/hr Lactobacillus Acidophilus (Bacid Acidophilus) 1 cap PO BID [facility] Last Admin: 05/26/16 08:32 Dose: Not Given Oxycodone HCl (Oxycodone Immediate Release Tab) 10 mg PO Q4H PRN PRN Reason: Pain, moderate (4-7) Last Admin: 05/25/16 20:14 Dose: 10 mg - Labs Labs: 05/24/16 06:30 05/24/16 06:30 PT 10.6 SECONDS (9.6-11.2) 05/26/16 05:45 INR 1.02 (0.92-1.08) 05/26/16 05:45 APTT 23.9 SECONDS (23.3-32.5) 05/26/16 05:45
[2016-05-26] MEDS ORDERED: Lidocaine 2% MPF (5 ml) Inj ONE (10:41)
[2016-05-26] MEDS ORDERED: Lidocaine 1% Inj (20ml) TP ONE (11:00)
[2016-05-26] MEDS ORDERED: Lidocaine 2% GEL TOP ONE (11:00)
[2016-05-26] MEDS ORDERED: Midazolam 2 MG/2 ML VIAL ONE (11:09)
[2016-05-26] MEDS ORDERED: Propofol 10 mg/ml Inj (20 ML) ONE ×2 (11:10→11:32)
[2016-05-26] MEDS ORDERED: Lactated Ringer's 500 ML IV ONE (11:20)
--- NOTE | 2016-05-26 11:36 | CP.PCM.PN ---
Subjective - Date & Time of Evaluation Date of Evaluation: 05/26/16 Time of Evaluation: 11:00 - Subjective Subjective: L hemithorax and Lbacck capular area pain , no SOB , no Cough Objective - Vital Signs/Intake and Output Vital Signs (last 24 hours): Temp Pulse Resp BP Pulse Ox 98.4 F 85 20 114/80 97 05/26/16 11:09 05/26/16 11:09 05/26/16 11:09 05/26/16 11:09 05/26/16 11:09 - Medications Medications: Current Medications Alprazolam (Xanax) 0.5 mg PO TID PRN PRN Reason: Anxiety Last Admin: 05/25/16 23:17 Dose: 0.5 mg Hydromorphone HCl (Dilaudid) 2 mg IVP Q4H PRN PRN Reason: Pain, severe (8-10) Last Admin: 05/26/16 08:32 Dose: 2 mg Ceftriaxone Sodium 1 gm/ (Sodium Chloride) 100 mls @ 100 mls/hr IVPB DAILY [facility] Last Admin: 05/26/16 08:32 Dose: 100 mls/hr Azithromycin 500 mg/ Sodium (Chloride) 250 mls @ 250 mls/hr IVPB DAILY [facility] Last Admin: 05/26/16 08:33 Dose: 250 mls/hr Lactobacillus Acidophilus (Bacid Acidophilus) 1 cap PO BID [facility] Last Admin: 05/26/16 08:32 Dose: Not Given Oxycodone HCl (Oxycodone Immediate Release Tab) 10 mg PO Q4H PRN PRN Reason: Pain, moderate (4-7) Last Admin: 05/25/16 20:14 Dose: 10 mg - Labs Labs: 05/24/16 06:30 05/24/16 06:30 PT 10.6 SECONDS (9.6-11.2) 05/26/16 05:45 INR 1.02 (0.92-1.08) 05/26/16 05:45 APTT 23.9 SECONDS (23.3-32.5) 05/26/16 05:45 - Constitutional Appears: No Acute Distress - Head Exam Head Exam: NORMAL INSPECTION - Eye Exam Eye Exam: PERRL - Neck Exam Neck Exam: Normal Inspection - Respiratory Exam Respiratory Exam: Clear to Ausculation Bilateral Additional comments: Tenderness L upper lateral ribs and L Scapular - Cardiovascular Exam Cardiovascular Exam: REGULAR RHYTHM - GI/Abdominal Exam GI & Abdominal Exam: Soft, Normal Bowel Sounds - Extremities Exam Extremities Exam: Normal Inspection - Back Exam Back Exam: tenderness - Neurological Exam Neurological Exam: Alert, Oriented x3. absent: Motor Sensory Deficit - Psychiatric Exam Psychiatric exam: Anxious - Skin Skin Exam: Warm Assessment and Plan (1) Neoplasm of lung, upper lobe, malignant Status: Acute (2) Malignant neoplasm metastatic to liver Status: Acute (3) CAD (coronary artery disease) Status: Chronic (4) HTN (hypertension) Status: Chronic (5) Hx of hepatitis C Status: Chronic (6) Chronic lumbosacral pain Status: Chronic (7) Chronic foot pain Status: Chronic (8) Anxiety Status: Chronic - Assessment and Plan (Free Text) Plan: Continue treatment , for Bronchoscopy Bx today
[2016-05-26] MEDS: Lactated Ringer's 500 ML IV ONE ×2 (12:25→16:33)
--- NOTE | 2016-05-26 13:01 | RAD ---
PROCEDURE: Fluoroscopy HISTORY: BRONCHOSCOPY COMPARISON: Up to 1 hour none TECHNIQUE: Standard protocol for this study/examination. FINDINGS: Submitted images from the current procedure: 9.0. IMPRESSION: Total fluoroscopic time (continuous mode) utilized during the procedure: 516.5 seconds.
[2016-05-26] MEDS: HYDROmorphone 0.5 mg/0.5 ml ISec IVP PRN ×9 (13:13→13:48)
--- NOTE | 2016-05-27 06:21 | BRONCH ---
PROCEDURE DATE: 05/26/2016 PROCEDURE: Bronchoscopy. PREOPERATIVE DIAGNOSIS: Right hilar mass. DESCRIPTION OF PROCEDURE: Bronchoscopy was done in the endoscopy unit. After topical anesthesia, fl exible bronchoscope was introduced in the left nasal cavity, then advanced to the nasopharynx, then f urther advanced into the oropharynx. The epiglottis was mobile and in the midline, and the vocal cor ds were mobile with no pathology. Then, bronchoscope was advanced into the trachea, where we found m ild erythema. No endotracheal lesion or extrinsic compression. The josé miguel was visualized. It was b lunted. Then, bronchoscope was introduced in the left mainstem bronchus and then into the left upper lobe and withdrawn and advanced to the left lower lobe. In all the segments in both lobes, mucosae showing mild erythema, no endobronchial lesion, no extrinsic compression. Then, bronchoscope was wit hdrawn and advanced to the ____ mainstem bronchus, where it was noticed the infiltration of the mucos ae in the anterior area, extending to the ____ upper lobe bronchi. Then, bronchoscope was advanced t o the bronchus intermedius of the right middle lobe. There was mild erythema on the mucosae of both segments, no endobronchial lesion or extrinsic compression. We then advanced to the right lower lobe . All the segments with mild erythema, no endobronchial lesion or extrinsic compression. Then, bron choscope withdrawn and then advanced into the right mainstem bronchus that appeared with mucosal infi ltration, extending up a tumor, occluding the entrance of the superior anterior and posterior segment s to the point the bronchoscope could not be advanced. At this time, the transbronchial ____ biopsie s and brushings were done in the area of the tumor, along with washings on the area. There was minim al bleeding that subsided spontaneously. Then, the bronchoscope was withdrawn. POSTOPERATIVE DIAGNOSIS: A malignant neoplasm occluding the entrance of the right upper lobe segment with mucosal infiltration of the right upper lobe bronchi extending to the right mainstem bronchus c lose to the josé miguel. COMPLICATIONS: None. CONDITION: At the end of the procedure, patient was in a stable condition. SPECIMENS: The biopsies, brushings and washings were forwarded to the lab and pathology. Isma Saxena MD cc: 24 TT: 05/26/2016 16:49:45 ln 05/26/2016 20:45:59
[2016-05-27] MEDS: Lactobacillus Acidophilus 500 MU Cap PO SCH ×2 (08:58→17:09)
--- NOTE | 2016-05-27 10:36 | RAD ---
HISTORY: s/p brobchoscopy COMPARISON: 05/22/2016 FINDINGS: LUNGS: Increasing right upper lobe opacity. Right upper lobe volume loss with upward bowing of the minor fissure. No other consolidation elsewhere. PLEURA: No evidence of pleural effusion or pneumothorax. CARDIOVASCULAR: Normal. OSSEOUS STRUCTURES: No significant abnormalities. VISUALIZED UPPER ABDOMEN: Normal. OTHER FINDINGS: None. IMPRESSION: Increasing right upper lobe opacity with volume loss. Possible pneumonia. Rule out atelectasis. Followup advised.
[2016-05-27] MEDS: Azithromycin 500 MG in Sodium Chloride 0.9% 250 ML IVPB SCH (10:42)
[2016-05-27] MEDS: oxyCODONE 5 mg Immediate Release Tab PO PRN ×2 (10:45→18:52)
--- NOTE | 2016-05-27 12:36 | CP.PCM.PN ---
Subjective - Date & Time of Evaluation Date of Evaluation: 05/27/16 - Subjective Subjective: F/U RUL Neoplasm Pt c/o of L chest wall pain radiated to posterior L scapular area, cough with scanty yellowish sputum with streaks of blood. Objective - Vital Signs/Intake and Output Vital Signs (last 24 hours): Temp Pulse Resp BP Pulse Ox 98.3 F 73 20 128/81 96 05/27/16 07:56 05/27/16 07:56 05/27/16 07:56 05/27/16 07:56 05/27/16 07:56 - Medications Medications: Current Medications Alprazolam (Xanax) 0.5 mg PO TID PRN PRN Reason: Anxiety Last Admin: 05/27/16 02:28 Dose: 0.5 mg Enoxaparin Sodium (Lovenox) 40 mg SC DAILY [facility] PRN Reason: Protocol Hydromorphone HCl (Dilaudid) 3 mg IVP Q4H PRN PRN Reason: Pain, severe (8-10) Last Admin: 05/27/16 08:44 Dose: 3 mg Ceftriaxone Sodium 1 gm/ (Sodium Chloride) 100 mls @ 100 mls/hr IVPB DAILY [facility] Last Admin: 05/27/16 08:52 Dose: 100 mls/hr Azithromycin 500 mg/ Sodium (Chloride) 250 mls @ 250 mls/hr IVPB DAILY [facility] Last Admin: 05/27/16 10:42 Dose: 250 mls/hr Lactobacillus Acidophilus (Bacid Acidophilus) 1 cap PO BID [facility] Last Admin: 05/27/16 08:58 Dose: 1 cap Oxycodone HCl (Oxycodone Immediate Release Tab) 10 mg PO Q4H PRN PRN Reason: Pain, moderate (4-7) Last Admin: 05/27/16 10:45 Dose: 10 mg - Labs Labs: 05/24/16 06:30 05/24/16 06:30 PT 10.6 SECONDS (9.6-11.2) 05/26/16 05:45 INR 1.02 (0.92-1.08) 05/26/16 05:45 APTT 23.9 SECONDS (23.3-32.5) 05/26/16 05:45 - Constitutional Appears: No Acute Distress, Chronically Ill - Head Exam Head Exam: NORMAL INSPECTION - Eye Exam Eye Exam: PERRL - ENT Exam ENT Exam: Normal Exam - Neck Exam Neck Exam: Normal Inspection - Respiratory Exam Respiratory Exam: Clear to Ausculation Bilateral Additional comments: Tenderness in L upper lateral ribs and L scapular. - Cardiovascular Exam Cardiovascular Exam: REGULAR RHYTHM - GI/Abdominal Exam GI & Abdominal Exam: Soft, Normal Bowel Sounds - Extremities Exam Extremities Exam: Normal Inspection - Back Exam Back Exam: tenderness - Neurological Exam Neurological Exam: Alert, Oriented x3. absent: Motor Sensory Deficit - Psychiatric Exam Psychiatric exam: Normal Affect - Skin Skin Exam: Warm Assessment and Plan (1) Neoplasm of lung, upper lobe, malignant Status: Acute (2) Malignant neoplasm metastatic to liver Status: Acute (3) CAD (coronary artery disease) Status: Chronic (4) HTN (hypertension) Status: Chronic (5) Hx of hepatitis C Status: Chronic (6) Chronic lumbosacral pain Status: Chronic (7) Chronic foot pain Status: Chronic (8) Anxiety Status: Chronic - Assessment and Plan (Free Text) Plan: Continue Dilaudid and rest of Tx, f/u Lung Bx, Pathology report.
[2016-05-27] MEDS: Enoxaparin 40 mg Syringe SC SCH (16:50)
[2016-05-28] MEDS: oxyCODONE 5 mg Immediate Release Tab PO PRN (08:04)
[2016-05-28] MEDS: Lactobacillus Acidophilus 500 MU Cap PO SCH ×2 (08:06→16:39)
[2016-05-28 08:38] LABS: HEMATOCRIT 41.3 % (35.0-51.0); MEAN CELL VOLUME 80.2 fl (80.0-94.0); MEAN CORPUSCULAR HGB CONC 33.7 g/dL (33.0-37.0); RED CELL DISTRIBUTION WIDTH 13.9 % (11.5-14.5); WHITE BLOOD COUNT 5.9 K/uL (4.8-10.8)
[2016-05-28 08:47] LABS: BLOOD UREA NITROGEN 19 mg/dl (9-20); CALCIUM 10.3 mg/dL (8.4-10.2); CARBON DIOXIDE 27 mmol/L (22-30); CHLORIDE 100 mmol/L (98-107); GFR AFRICAN-AMERICAN > 60; GLUCOSE,RANDOM 88 mg/dL (75-110); POTASSIUM 4.4 MMOL/L (3.6-5.0); SODIUM 141 mmol/l (132-148)
[2016-05-28] MEDS: Enoxaparin 40 mg Syringe SC SCH (09:47)
[2016-05-28] MEDS: Azithromycin 500 MG in Sodium Chloride 0.9% 250 ML IVPB SCH (11:52)
--- NOTE | 2016-05-28 14:36 | CP.PCM.PN ---
Subjective - Date & Time of Evaluation Date of Evaluation: 05/28/16 - Subjective Subjective: F/U RUL Neoplasm Pain L anterior chest wall and L Scapular area Objective - Vital Signs/Intake and Output Vital Signs (last 24 hours): Temp Pulse Resp BP Pulse Ox 97.4 F L 88 20 168/71 H 97 05/28/16 07:59 05/28/16 07:59 05/28/16 07:59 05/28/16 07:59 05/28/16 07:59 - Medications Medications: Current Medications Alprazolam (Xanax) 0.5 mg PO TID PRN PRN Reason: Anxiety Last Admin: 05/28/16 08:06 Dose: 0.5 mg Enoxaparin Sodium (Lovenox) 40 mg SC DAILY [facility] PRN Reason: Protocol Last Admin: 05/28/16 09:47 Dose: 40 mg Gabapentin (Neurontin) 300 mg PO TID [facility] Hydromorphone HCl (Dilaudid) 2 mg IVP Q3 PRN PRN Reason: Pain, severe (8-10) Ceftriaxone Sodium 1 gm/ (Sodium Chloride) 100 mls @ 100 mls/hr IVPB DAILY [facility] Last Admin: 05/28/16 09:48 Dose: 100 mls/hr Azithromycin 500 mg/ Sodium (Chloride) 250 mls @ 250 mls/hr IVPB DAILY [facility] Last Admin: 05/28/16 11:52 Dose: 250 mls/hr Lactobacillus Acidophilus (Bacid Acidophilus) 1 cap PO BID [facility] Last Admin: 05/28/16 08:06 Dose: 1 cap Methadone HCl (Methadone) 10 mg PO Q12 [facility] - Labs Labs: 05/28/16 08:18 05/28/16 08:18 PT 10.6 SECONDS (9.6-11.2) 05/26/16 05:45 INR 1.02 (0.92-1.08) 05/26/16 05:45 APTT 23.9 SECONDS (23.3-32.5) 05/26/16 05:45 - Constitutional Appears: No Acute Distress, Chronically Ill - Head Exam Head Exam: NORMAL INSPECTION - Eye Exam Eye Exam: PERRL - ENT Exam ENT Exam: Normal Exam - Neck Exam Neck Exam: Normal Inspection - Respiratory Exam Respiratory Exam: NORMAL BREATHING PATTERN Additional comments: Tenderness L/U Lateral ribs and L Scapular - Cardiovascular Exam Cardiovascular Exam: REGULAR RHYTHM - GI/Abdominal Exam GI & Abdominal Exam: Soft, Normal Bowel Sounds - Extremities Exam Extremities Exam: Normal Inspection - Back Exam Back Exam: NORMAL INSPECTION - Neurological Exam Neurological Exam: Alert, Oriented x3. absent: Motor Sensory Deficit - Psychiatric Exam Psychiatric exam: Anxious - Skin Skin Exam: Warm Assessment and Plan (1) Neoplasm of lung, upper lobe, malignant Status: Acute (2) Malignant neoplasm metastatic to liver Status: Acute (3) CAD (coronary artery disease) Status: Chronic (4) HTN (hypertension) Status: Chronic (5) Hx of hepatitis C Status: Chronic (6) Chronic lumbosacral pain Status: Chronic (7) Chronic foot pain Status: Chronic (8) Anxiety Status: Chronic - Assessment and Plan (Free Text) Plan: Preliminary Pathology report Small Cell Ca , awaiting final report, f/u Hematology , continue Dilaudid , Methadone and rest of treatment
[2016-05-29] MEDS: Lactobacillus Acidophilus 500 MU Cap PO SCH ×2 (08:12→16:19)
[2016-05-29] MEDS: Enoxaparin 40 mg Syringe SC SCH (08:13)
[2016-05-29] MEDS: Azithromycin 500 MG in Sodium Chloride 0.9% 250 ML IVPB SCH (08:14)
--- NOTE | 2016-05-29 08:15 | CP.PCM.CON ---
History of Present Illness - History of Present Illness History of Present Illness: 56 yo man w/ recently diagnosed lung mass. Mass is in RUL, though pain is in the left chest, radiating from front to back. Patient denies history of chronic pain or substance abuse, but has exhibited high tolerance since admission. Dilaudid 3mg IV was moderately effective, but patient needed it around the clock. He was started on Methadone yesterday. No side effects. Sleep was better. Past Patient History - Infectious Disease Hx of Infectious Diseases: None - Past Medical History & Family History Past Medical History?: Yes - Past Social History Smoking Status: Heavy Smoker > 10 Cigarettes Daily Alcohol: Social Drugs: Denies Home Situation {Lives}: Alone - CARDIAC Hx Cardiac Disorders: Yes Hx Hypercholesterolemia: Yes Hx Hypertension: Yes - PULMONARY Hx Respiratory Disorders: No Other/Comment: current smoker - NEUROLOGICAL Hx Neurological Disorder: No - HEENT Hx HEENT Problems: No - RENAL Hx Chronic Kidney Disease: No - ENDOCRINE/METABOLIC Hx Endocrine Disorders: No - HEMATOLOGICAL/ONCOLOGICAL Hx Blood Disorders: Yes Hx Hepatitis C: Yes - INTEGUMENTARY Hx Dermatological Problems: No - MUSCULOSKELETAL/RHEUMATOLOGICAL Hx Musculoskeletal Disorders: Yes (L foot pain s/p ORIF 2nd to Fx.) Hx Back Pain: Yes Hx Falls: No - GASTROINTESTINAL Hx Gastrointestinal Disorders: No - GENITOURINARY/GYNECOLOGICAL Hx Genitourinary Disorders: No - PSYCHIATRIC Hx Psychophysiologic Disorder: Yes Hx Anxiety: Yes Hx Substance Use: No (denies) - SURGICAL HISTORY Hx Surgeries: Yes Hx Coronary Stent: Yes - ANESTHESIA Hx Anesthesia: Yes Hx Anesthesia Reactions: No Meds Allergies/Adverse Reactions: Allergies Allergy/AdvReac Type Severity Reaction Status Date / Time No Known Allergies Allergy Verified 04/22/14 11:33 - Medications Medications: Current Medications Alprazolam (Xanax) 0.5 mg PO TID PRN PRN Reason: Anxiety Last Admin: 05/28/16 08:06 Dose: 0.5 mg Enoxaparin Sodium (Lovenox) 40 mg SC DAILY [facility] PRN Reason: Protocol Last Admin: 05/28/16 09:47 Dose: 40 mg Gabapentin (Neurontin) 300 mg PO TID [facility] Last Admin: 05/28/16 16:39 Dose: 300 mg Hydromorphone HCl (Dilaudid) 2 mg IVP Q3 PRN PRN Reason: Pain, severe (8-10) Last Admin: 05/29/16 06:26 Dose: 2 mg Ceftriaxone Sodium 1 gm/ (Sodium Chloride) 100 mls @ 100 mls/hr IVPB DAILY [facility] Last Admin: 05/28/16 09:48 Dose: 100 mls/hr Azithromycin 500 mg/ Sodium (Chloride) 250 mls @ 250 mls/hr IVPB DAILY [facility] Last Admin: 05/28/16 11:52 Dose: 250 mls/hr Lactobacillus Acidophilus (Bacid Acidophilus) 1 cap PO BID [facility] Last Admin: 05/28/16 16:39 Dose: 1 cap Methadone HCl (Methadone) 10 mg PO Q12 [facility] Last Admin: 05/28/16 21:02 Dose: 10 mg Physical Exam - Constitutional Appears: No Acute Distress - Respiratory Exam Respiratory Exam: Chest Wall Tenderness - Cardiovascular Exam Cardiovascular Exam: REGULAR RHYTHM Results - Vital Signs Recent Vital Signs: Last Vital Signs Temp 98.5 F 05/28/16 21:30 Pulse 77 05/28/16 21:30 Resp 18 05/28/16 21:30 BP 123/78 05/28/16 21:30 Pulse Ox 93 L 05/28/16 21:30 - Labs Result Diagrams: 05/28/16 08:18 05/28/16 08:18 Labs: Laboratory Results - last 24 hr 05/28/16 08:18 WBC 5.9 RBC 5.15 Hgb 13.9 Hct 41.3 MCV 80.2 MCH 27.0 MCHC 33.7 RDW 13.9 Plt Count 87 L Sodium 141 Potassium 4.4 Chloride 100 Carbon Dioxide 27 Anion Gap 19 BUN 19 Creatinine 0.7 L Est GFR ( Amer) > 60 Est GFR (Non-Af Amer) > 60 Random Glucose 88 Calcium 10.3 H Assessment & Plan - Assessment and Plan (Free Text) Assessment: 56 yo man w/ lung mass. Awaiting path results. High tolerance to opioids. - increase Methadone to 10mg q8h - change Neurontin to Lyrica - continue Dilaudid IV, but only 2mg q3h PRN - f/u onc recommendations
--- NOTE | 2016-05-29 14:28 | CP.PCM.PN ---
Subjective - Date & Time of Evaluation Date of Evaluation: 05/29/16 Time of Evaluation: 12:00 - Subjective Subjective: F/U RUL Neoplasm Pt c/o of pain in the left upper anterior and lateral ribs, and left posterior scapular area Objective - Vital Signs/Intake and Output Vital Signs (last 24 hours): Temp Pulse Resp BP Pulse Ox 98.5 F 78 20 118/79 96 05/29/16 08:16 05/29/16 08:16 05/29/16 08:16 05/29/16 08:16 05/29/16 08:16 - Medications Medications: Current Medications Alprazolam (Xanax) 0.5 mg PO TID PRN PRN Reason: Anxiety Last Admin: 05/29/16 13:42 Dose: 0.5 mg Enoxaparin Sodium (Lovenox) 40 mg SC DAILY [facility] PRN Reason: Protocol Last Admin: 05/29/16 08:13 Dose: 40 mg Hydromorphone HCl (Dilaudid) 2 mg IVP Q3 PRN PRN Reason: Pain, severe (8-10) Last Admin: 05/29/16 12:29 Dose: 2 mg Ceftriaxone Sodium 1 gm/ (Sodium Chloride) 100 mls @ 100 mls/hr IVPB DAILY [facility] Last Admin: 05/29/16 08:13 Dose: 100 mls/hr Azithromycin 500 mg/ Sodium (Chloride) 250 mls @ 250 mls/hr IVPB DAILY [facility] Last Admin: 05/29/16 08:14 Dose: 250 mls/hr Lactobacillus Acidophilus (Bacid Acidophilus) 1 cap PO BID [facility] Last Admin: 05/29/16 08:12 Dose: 1 cap Methadone HCl (Methadone) 10 mg PO Q8 [facility] Last Admin: 05/29/16 09:29 Dose: Not Given Pregabalin (Lyrica) 50 mg PO TID [facility] Last Admin: 05/29/16 13:40 Dose: 50 mg - Labs Labs: 05/28/16 08:18 05/28/16 08:18 PT 10.6 SECONDS (9.6-11.2) 05/26/16 05:45 INR 1.02 (0.92-1.08) 05/26/16 05:45 APTT 23.9 SECONDS (23.3-32.5) 05/26/16 05:45 - Constitutional Appears: No Acute Distress - Head Exam Head Exam: NORMAL INSPECTION - Eye Exam Eye Exam: PERRL - ENT Exam ENT Exam: Normal Exam - Neck Exam Neck Exam: Normal Inspection - Respiratory Exam Respiratory Exam: Clear to Ausculation Bilateral Additional comments: Tenderness L upper lateral ribs and L scalupar. - Cardiovascular Exam Cardiovascular Exam: REGULAR RHYTHM - GI/Abdominal Exam GI & Abdominal Exam: Soft, Normal Bowel Sounds - Extremities Exam Extremities Exam: Normal Inspection - Back Exam Back Exam: tenderness - Neurological Exam Neurological Exam: Alert, Oriented x3. absent: Motor Sensory Deficit - Psychiatric Exam Psychiatric exam: Anxious - Skin Skin Exam: Warm Assessment and Plan (1) Neoplasm of lung, upper lobe, malignant Status: Acute (2) Malignant neoplasm metastatic to liver Status: Acute (3) CAD (coronary artery disease) Status: Chronic (4) HTN (hypertension) Status: Chronic (5) Hx of hepatitis C Status: Chronic (6) Chronic lumbosacral pain Status: Chronic (7) Chronic foot pain Status: Chronic (8) Anxiety Status: Chronic - Assessment and Plan (Free Text) Plan: Bx RUL small cell Ca, awaiting for official report, continue Dilaudid, Methadone, Rocephin and rest of Tx.
--- NOTE | 2016-05-30 08:23 | CP.PCM.PN ---
Subjective - Date & Time of Evaluation Date of Evaluation: 05/30/16 Time of Evaluation: 08:00 - Subjective Subjective: Awaiting path report. No new changes. He still complains of the pain, although the nursing staff feels his pain is controlled and that he times pain medication requests. He appears comfortable and was sleeping before I woke him up for the interview. He denies side effects from the current regimen. Pain is still mostly left-sided. Objective - Vital Signs/Intake and Output Vital Signs (last 24 hours): Temp Pulse Resp BP Pulse Ox 97.4 F L 74 20 133/83 94 L 05/30/16 07:34 05/30/16 07:34 05/30/16 07:34 05/30/16 07:34 05/30/16 07:34 - Medications Medications: Current Medications Alprazolam (Xanax) 0.5 mg PO TID PRN PRN Reason: Anxiety Last Admin: 05/29/16 13:42 Dose: 0.5 mg Enoxaparin Sodium (Lovenox) 40 mg SC DAILY [facility] PRN Reason: Protocol Last Admin: 05/29/16 08:13 Dose: 40 mg Hydromorphone HCl (Dilaudid) 2 mg IVP Q3 PRN PRN Reason: Pain, severe (8-10) Last Admin: 05/30/16 07:04 Dose: 2 mg Ceftriaxone Sodium 1 gm/ (Sodium Chloride) 100 mls @ 100 mls/hr IVPB DAILY [facility] Last Admin: 05/29/16 08:13 Dose: 100 mls/hr Azithromycin 500 mg/ Sodium (Chloride) 250 mls @ 250 mls/hr IVPB DAILY [facility] Last Admin: 05/29/16 08:14 Dose: 250 mls/hr Lactobacillus Acidophilus (Bacid Acidophilus) 1 cap PO BID [facility] Last Admin: 05/29/16 16:19 Dose: 1 cap Methadone HCl (Methadone) 10 mg PO Q8 [facility] Last Admin: 05/30/16 01:08 Dose: 10 mg Pregabalin (Lyrica) 50 mg PO TID [facility] Last Admin: 05/29/16 16:19 Dose: 50 mg - Labs Labs: 05/28/16 08:18 05/28/16 08:18 PT 10.6 SECONDS (9.6-11.2) 05/26/16 05:45 INR 1.02 (0.92-1.08) 05/26/16 05:45 APTT 23.9 SECONDS (23.3-32.5) 05/26/16 05:45 - Respiratory Exam Respiratory Exam: Chest Wall Tenderness - Cardiovascular Exam Cardiovascular Exam: REGULAR RHYTHM Assessment and Plan - Assessment and Plan (Free Text) Assessment: 56 yo man w/ lung mass likely liver mets. Awaiting path report. Site of pain not consistent with tumor location. High tolerance and possible drug seeking behavior. - consider additional test to assess left-sided chest pain - continue Methadone 10mg q8h - continue Dilaudid 2mg IV PRN, will change to PO pending dispo - increase Lyrica to 100mg q8h - add Cymbalta 30mg qhs
[2016-05-30] MEDS: Enoxaparin 40 mg Syringe SC SCH (09:03)
[2016-05-30] MEDS: Lactobacillus Acidophilus 500 MU Cap PO SCH ×2 (09:08→17:11)
--- NOTE | 2016-05-30 09:49 | CP.PCM.PN ---
Subjective - Date & Time of Evaluation Date of Evaluation: 05/30/16 Time of Evaluation: 09:45 - Subjective Subjective: Pt is afebrile, and still continues to have chest pain due to temi large mass in the mediastinum and hilar nodes. An addendum reports that pt also has diffuse metastatic disease in the liver.Final pathology result is not yet available because specimen has been sent to intrgrated labs for immunohistochemical stains. The pathologist feels that it is probably a smal;l cell cancer, in which case the prognosis will be very poor. Objective - Vital Signs/Intake and Output Vital Signs (last 24 hours): Temp Pulse Resp BP Pulse Ox 97.4 F L 74 20 133/83 94 L 05/30/16 07:34 05/30/16 07:34 05/30/16 07:34 05/30/16 07:34 05/30/16 07:34 - Medications Medications: Current Medications Alprazolam (Xanax) 0.5 mg PO TID PRN PRN Reason: Anxiety Last Admin: 05/29/16 13:42 Dose: 0.5 mg Duloxetine HCl (Cymbalta) 30 mg PO DAILY [facility] Enoxaparin Sodium (Lovenox) 40 mg SC DAILY [facility] PRN Reason: Protocol Last Admin: 05/30/16 09:03 Dose: 40 mg Hydromorphone HCl (Dilaudid) 2 mg IVP Q3 PRN PRN Reason: Pain, severe (8-10) Last Admin: 05/30/16 07:04 Dose: 2 mg Ceftriaxone Sodium 1 gm/ (Sodium Chloride) 100 mls @ 100 mls/hr IVPB DAILY [facility] Last Admin: 05/30/16 09:04 Dose: 100 mls/hr Azithromycin 500 mg/ Sodium (Chloride) 250 mls @ 250 mls/hr IVPB DAILY [facility] Last Admin: 05/29/16 08:14 Dose: 250 mls/hr Lactobacillus Acidophilus (Bacid Acidophilus) 1 cap PO BID [facility] Last Admin: 05/30/16 09:08 Dose: 1 cap Methadone HCl (Methadone) 10 mg PO Q8 [facility] Last Admin: 05/30/16 09:02 Dose: 10 mg Pregabalin (Lyrica) 100 mg PO Q8 [facility] Last Admin: 05/30/16 09:02 Dose: 100 mg - Labs Labs: 05/28/16 08:18 05/28/16 08:18 PT 10.6 SECONDS (9.6-11.2) 05/26/16 05:45 INR 1.02 (0.92-1.08) 05/26/16 05:45 APTT 23.9 SECONDS (23.3-32.5) 05/26/16 05:45
[2016-05-30] MEDS: Azithromycin 500 MG in Sodium Chloride 0.9% 250 ML IVPB SCH (10:16)
--- NOTE | 2016-05-30 14:36 | CP.PCM.PN ---
Subjective - Date & Time of Evaluation Date of Evaluation: 05/30/16 Time of Evaluation: 11:40 - Subjective Subjective: F/U RUL Neoplasm Pain L anterior chest wall and L scapular area Objective - Vital Signs/Intake and Output Vital Signs (last 24 hours): Temp Pulse Resp BP Pulse Ox 97.4 F L 74 20 133/83 94 L 05/30/16 07:34 05/30/16 07:34 05/30/16 07:34 05/30/16 07:34 05/30/16 07:34 - Medications Medications: Current Medications Alprazolam (Xanax) 0.5 mg PO TID PRN PRN Reason: Anxiety Last Admin: 05/29/16 13:42 Dose: 0.5 mg Duloxetine HCl (Cymbalta) 30 mg PO DAILY [facility] Last Admin: 05/30/16 10:39 Dose: Not Given Enoxaparin Sodium (Lovenox) 40 mg SC DAILY [facility] PRN Reason: Protocol Last Admin: 05/30/16 09:03 Dose: 40 mg Hydromorphone HCl (Dilaudid) 2 mg IVP Q3 PRN PRN Reason: Pain, severe (8-10) Last Admin: 05/30/16 13:13 Dose: 2 mg Hydromorphone HCl (Dilaudid) 2 mg IVP Q2 PRN PRN Reason: Pain, severe (8-10) Ceftriaxone Sodium 1 gm/ (Sodium Chloride) 100 mls @ 100 mls/hr IVPB DAILY [facility] Last Admin: 05/30/16 09:04 Dose: 100 mls/hr Azithromycin 500 mg/ Sodium (Chloride) 250 mls @ 250 mls/hr IVPB DAILY [facility] Last Admin: 05/30/16 10:16 Dose: 250 mls/hr Lactobacillus Acidophilus (Bacid Acidophilus) 1 cap PO BID [facility] Last Admin: 05/30/16 09:08 Dose: 1 cap Methadone HCl (Methadone) 10 mg PO Q8 [facility] Last Admin: 05/30/16 09:02 Dose: 10 mg Pregabalin (Lyrica) 100 mg PO Q8 [facility] Last Admin: 05/30/16 09:02 Dose: 100 mg - Labs Labs: 05/28/16 08:18 05/28/16 08:18 PT 10.6 SECONDS (9.6-11.2) 05/26/16 05:45 INR 1.02 (0.92-1.08) 05/26/16 05:45 APTT 23.9 SECONDS (23.3-32.5) 05/26/16 05:45 - Constitutional Appears: No Acute Distress, Chronically Ill - Head Exam Head Exam: NORMAL INSPECTION - Eye Exam Eye Exam: PERRL - ENT Exam ENT Exam: Normal Oropharynx - Neck Exam Neck Exam: Normal Inspection - Respiratory Exam Respiratory Exam: Decreased Breath Sounds (slightly decreased RUL), Rhonchi ( scattered at bases) Additional comments: Tenderness L upper lateral ribs and L scapular - Cardiovascular Exam Cardiovascular Exam: REGULAR RHYTHM - GI/Abdominal Exam GI & Abdominal Exam: Soft, Normal Bowel Sounds - Extremities Exam Extremities Exam: Normal Inspection - Back Exam Back Exam: tenderness - Neurological Exam Neurological Exam: Alert, Oriented x3. absent: Motor Sensory Deficit - Psychiatric Exam Psychiatric exam: Anxious - Skin Skin Exam: Warm Assessment and Plan (1) Neoplasm of lung, upper lobe, malignant Status: Acute (2) Malignant neoplasm metastatic to liver Status: Acute (3) CAD (coronary artery disease) Status: Chronic (4) HTN (hypertension) Status: Chronic (5) Hx of hepatitis C Status: Chronic (6) Chronic lumbosacral pain Status: Chronic (7) Chronic foot pain Status: Chronic (8) Anxiety Status: Chronic - Assessment and Plan (Free Text) Plan: Continue Dilaudid, Methadone, Lyrica and rest of Tx. Awaiting final Pathology report.
[2016-05-31] MEDS: Lactobacillus Acidophilus 500 MU Cap PO SCH ×2 (09:30→16:55)
[2016-05-31] MEDS: Azithromycin 500 MG in Sodium Chloride 0.9% 250 ML IVPB SCH ×2 (09:33→11:44)
[2016-05-31] MEDS: Enoxaparin 40 mg Syringe SC SCH (10:30)
--- NOTE | 2016-05-31 14:29 | CP.PCM.PN ---
Subjective - Date & Time of Evaluation Date of Evaluation: 05/31/16 Time of Evaluation: 13:00 - Subjective Subjective: F/U RUL Neoplasm Pt c/o of pain in the left anterior wall, scapular area. Objective - Vital Signs/Intake and Output Vital Signs (last 24 hours): Temp Pulse Resp BP Pulse Ox 99.4 F 91 H 18 128/80 94 L 05/31/16 07:39 05/31/16 07:39 05/31/16 07:39 05/31/16 07:39 05/31/16 07:39 - Medications Medications: Current Medications Albuterol/Ipratropium (Duoneb 3 Mg/0.5 Mg (3 Ml) Ud) 3 ml INH RTID [facility] Alprazolam (Xanax) 0.5 mg PO TID PRN PRN Reason: Anxiety Last Admin: 05/31/16 11:43 Dose: 0.5 mg Duloxetine HCl (Cymbalta) 30 mg PO DAILY [facility] Last Admin: 05/31/16 09:32 Dose: Not Given Enoxaparin Sodium (Lovenox) 40 mg SC DAILY [facility] PRN Reason: Protocol Last Admin: 05/31/16 10:30 Dose: 40 mg Hydromorphone HCl (Dilaudid) 2 mg IVP Q2 PRN PRN Reason: Pain, severe (8-10) Last Admin: 05/31/16 13:14 Dose: 2 mg Ceftriaxone Sodium 1 gm/ (Sodium Chloride) 100 mls @ 100 mls/hr IVPB DAILY [facility] Last Admin: 05/31/16 10:32 Dose: 100 mls/hr Lactobacillus Acidophilus (Bacid Acidophilus) 1 cap PO BID [facility] Last Admin: 05/31/16 09:30 Dose: 1 cap Methadone HCl (Methadone) 10 mg PO Q8 [facility] Last Admin: 05/31/16 09:30 Dose: 10 mg Ondansetron HCl (Zofran Inj) 4 mg IVP Q4 PRN PRN Reason: Nausea/Vomiting Pregabalin (Lyrica) 100 mg PO Q8 [facility] Last Admin: 05/31/16 09:30 Dose: 100 mg - Labs Labs: 05/28/16 08:18 05/28/16 08:18 PT 10.6 SECONDS (9.6-11.2) 05/26/16 05:45 INR 1.02 (0.92-1.08) 05/26/16 05:45 APTT 23.9 SECONDS (23.3-32.5) 05/26/16 05:45 - Constitutional Appears: No Acute Distress, Chronically Ill - Head Exam Head Exam: NORMAL INSPECTION - Eye Exam Eye Exam: PERRL - ENT Exam ENT Exam: Normal Oropharynx - Neck Exam Neck Exam: Normal Inspection - Respiratory Exam Respiratory Exam: Decreased Breath Sounds (slightly RUQ.), Rhonchi (scattered at bases) Additional comments: Tenderness on palpation L/U lateral ribs and L scapular. - Cardiovascular Exam Cardiovascular Exam: REGULAR RHYTHM - GI/Abdominal Exam GI & Abdominal Exam: Soft, Normal Bowel Sounds - Extremities Exam Extremities Exam: Normal Inspection - Back Exam Back Exam: tenderness - Neurological Exam Neurological Exam: Alert, Oriented x3. absent: Motor Sensory Deficit - Psychiatric Exam Psychiatric exam: Anxious - Skin Skin Exam: Warm Assessment and Plan (1) Neoplasm of lung, upper lobe, malignant Status: Acute (2) Malignant neoplasm metastatic to liver Status: Acute (3) CAD (coronary artery disease) Status: Chronic (4) HTN (hypertension) Status: Chronic (5) Hx of hepatitis C Status: Chronic (6) Chronic lumbosacral pain Status: Chronic (7) Chronic foot pain Status: Chronic (8) Anxiety Status: Chronic - Assessment and Plan (Free Text) Plan: Awaiting final Pathology report, add Denisa, continue rest of Tx.
[2016-05-31] MEDS: Albuterol-Ipratrop 3 mg / 0.5 (3 ml) UD INH SCH (19:02)
[2016-06-01] MEDS: Albuterol-Ipratrop 3 mg / 0.5 (3 ml) UD INH SCH ×3 (07:25→20:13)
[2016-06-01 08:10] LABS: BASO % 0.2 % (0.0-2.0); EOS % 0.6 % (0.0-4.0); HEMATOCRIT 36.6 % (35.0-51.0); LYMPH # 1.1 K/uL (1.0-4.3); LYMPH % 15.3 % (20.0-40.0); MEAN CELL VOLUME 81.2 fl (80.0-94.0); MEAN CORPUSCULAR HEMOGLOBIN 27.1 pg (27.0-31.0); MEAN CORPUSCULAR HGB CONC 33.4 g/dL (33.0-37.0); MEAN PLATELET VOLUME 9.2 fl (7.2-11.7); MONO # 1.1 K/uL (0.0-0.8); MONO % 14.8 % (0.0-10.0); NEUT # 5.1 K/uL (1.8-7.0); NEUT % 69.1 % (50.0-75.0); NRBC % 0.1 % (0.0-0.0); WHITE BLOOD COUNT 7.3 K/uL (4.8-10.8)
[2016-06-01 08:26] LABS: ALB/GLOB RATIO 1.1 (1.0-2.1); ALKALINE PHOSPHATASE 70 U/L (38-126); ALT/SGPT 45 U/L (21-72); AST/SGOT 106 U/L (17-59); BILIRUBIN,TOTAL 0.7 mg/dl (0.2-1.3); BLOOD UREA NITROGEN 20 mg/dl (9-20); CALCIUM 10.3 mg/dL (8.4-10.2); CARBON DIOXIDE 27 mmol/L (22-30); CHLORIDE 97 mmol/L (98-107); GFR AFRICAN-AMERICAN > 60; GLUCOSE,RANDOM 86 mg/dL (75-110); POTASSIUM 4.5 MMOL/L (3.6-5.0); SODIUM 141 mmol/l (132-148); TOTAL PROTEIN 7.4 G/DL (6.3-8.2)
[2016-06-01] MEDS: Lactobacillus Acidophilus 500 MU Cap PO SCH ×2 (10:00→16:08)
[2016-06-01] MEDS: Enoxaparin 40 mg Syringe SC SCH (10:01)
--- NOTE | 2016-06-01 14:29 | CP.PCM.PN ---
Subjective - Date & Time of Evaluation Date of Evaluation: 06/01/16 Time of Evaluation: 13:30 - Subjective Subjective: F/U RUL Neoplasm. Pain L Chest wall , L Scapular and now R anterior chest wall with increasing intensity Objective - Vital Signs/Intake and Output Vital Signs (last 24 hours): Temp Pulse Resp BP Pulse Ox 97.8 F 89 18 122/78 96 06/01/16 07:35 06/01/16 07:35 06/01/16 07:35 06/01/16 07:35 06/01/16 07:35 - Medications Medications: Current Medications Albuterol/Ipratropium (Duoneb 3 Mg/0.5 Mg (3 Ml) Ud) 3 ml INH RTID [facility] Last Admin: 06/01/16 13:44 Dose: 3 ml Alprazolam (Xanax) 0.5 mg PO TID PRN PRN Reason: Anxiety Last Admin: 05/31/16 11:43 Dose: 0.5 mg Duloxetine HCl (Cymbalta) 30 mg PO DAILY [facility] Last Admin: 06/01/16 10:01 Dose: 30 mg Enoxaparin Sodium (Lovenox) 40 mg SC DAILY [facility] PRN Reason: Protocol Last Admin: 06/01/16 10:01 Dose: 40 mg Hydromorphone HCl (Dilaudid) 2 mg IVP Q2 PRN PRN Reason: Pain, severe (8-10) Last Admin: 06/01/16 14:12 Dose: 2 mg Ceftriaxone Sodium 1 gm/ (Sodium Chloride) 100 mls @ 100 mls/hr IVPB DAILY [facility] Last Admin: 06/01/16 10:02 Dose: 100 mls/hr Lactobacillus Acidophilus (Bacid Acidophilus) 1 cap PO BID [facility] Last Admin: 06/01/16 10:00 Dose: 1 cap Methadone HCl (Methadone) 10 mg PO Q8 [facility] Last Admin: 06/01/16 10:00 Dose: 10 mg Ondansetron HCl (Zofran Inj) 4 mg IVP Q4 PRN PRN Reason: Nausea/Vomiting Pregabalin (Lyrica) 100 mg PO Q8 [facility] Last Admin: 06/01/16 01:14 Dose: 100 mg - Labs Labs: 06/01/16 06:30 06/01/16 06:30 PT 10.6 SECONDS (9.6-11.2) 05/26/16 05:45 INR 1.02 (0.92-1.08) 05/26/16 05:45 APTT 23.9 SECONDS (23.3-32.5) 05/26/16 05:45 - Constitutional Appears: No Acute Distress, Chronically Ill - Head Exam Head Exam: NORMAL INSPECTION - Eye Exam Eye Exam: PERRL - ENT Exam ENT Exam: Normal Exam - Neck Exam Neck Exam: Normal Inspection - Respiratory Exam Respiratory Exam: Decreased Breath Sounds ( RUL), Rhonchi (scattered at bases) Additional comments: Tenderness on palpation L upper lateral ribs, R upper ribs and L scapular - Cardiovascular Exam Cardiovascular Exam: REGULAR RHYTHM - GI/Abdominal Exam GI & Abdominal Exam: Soft, Normal Bowel Sounds - Extremities Exam Extremities Exam: Normal Inspection - Back Exam Back Exam: tenderness - Neurological Exam Neurological Exam: Alert, Oriented x3. absent: Motor Sensory Deficit - Psychiatric Exam Psychiatric exam: Anxious - Skin Skin Exam: Warm Assessment and Plan (1) Neoplasm of lung, upper lobe, malignant Status: Acute (2) Malignant neoplasm metastatic to liver Status: Acute (3) CAD (coronary artery disease) Status: Chronic (4) HTN (hypertension) Status: Chronic (5) Hx of hepatitis C Status: Chronic (6) Chronic lumbosacral pain Status: Chronic (7) Chronic foot pain Status: Chronic (8) Anxiety Status: Chronic - Assessment and Plan (Free Text) Plan: Patient with poor veins, great difficulty for getting IV Dilaudid , still awaiting final Pahtology bronson jones were ordered, Patient requested PICC line , after final Pathology report Patient will need Life Port for Chemotherapy
[2016-06-02] MEDS: Albuterol-Ipratrop 3 mg / 0.5 (3 ml) UD INH SCH ×3 (07:58→19:23)
[2016-06-02] MEDS: Lactobacillus Acidophilus 500 MU Cap PO SCH ×2 (08:23→16:22)
--- NOTE | 2016-06-02 11:18 | CP.PCM.PN ---
Subjective - Date & Time of Evaluation Date of Evaluation: 06/02/16 Time of Evaluation: 11:13 - Subjective Subjective: P's final pathology report is available today. 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 Had a long time explaining to the pt the nature and prognosis of the tumorand the treatment. He will have a lifeport placed tomorrow and will then get chemotherpy with Cisplatinum and Etoposide. He agrees with the same. Objective - Vital Signs/Intake and Output Vital Signs (last 24 hours): Temp Pulse Resp BP Pulse Ox 99.7 F H 84 18 116/63 96 06/02/16 10:14 06/02/16 10:14 06/02/16 10:14 06/02/16 10:14 06/02/16 10:14 - Medications Medications: Current Medications Albuterol/Ipratropium (Duoneb 3 Mg/0.5 Mg (3 Ml) Ud) 3 ml INH RTID [facility] Last Admin: 06/02/16 07:58 Dose: Not Given Alprazolam (Xanax) 0.5 mg PO TID PRN PRN Reason: Anxiety Last Admin: 06/01/16 16:54 Dose: 0.5 mg Duloxetine HCl (Cymbalta) 30 mg PO DAILY [facility] Last Admin: 06/02/16 08:24 Dose: 30 mg Enoxaparin Sodium (Lovenox) 40 mg SC DAILY [facility] PRN Reason: Protocol Last Admin: 06/01/16 10:01 Dose: 40 mg Hydromorphone HCl (Dilaudid) 2 mg IVP Q2 PRN PRN Reason: Pain, severe (8-10) Last Admin: 06/02/16 08:23 Dose: 2 mg Ceftriaxone Sodium 1 gm/ (Sodium Chloride) 100 mls @ 100 mls/hr IVPB DAILY [facility] Last Admin: 06/02/16 09:28 Dose: 100 mls/hr Lactobacillus Acidophilus (Bacid Acidophilus) 1 cap PO BID [facility] Last Admin: 06/02/16 08:23 Dose: 1 cap Methadone HCl (Methadone) 10 mg PO Q8 [facility] Last Admin: 06/02/16 09:28 Dose: 10 mg Ondansetron HCl (Zofran Inj) 4 mg IVP Q4 PRN PRN Reason: Nausea/Vomiting Pregabalin (Lyrica) 100 mg PO Q8 [facility] Last Admin: 04/17/17 09:28 Dose: 100 mg - Labs Labs: 06/01/16 06:30 06/01/16 06:30 PT 10.6 SECONDS (9.6-11.2) 05/26/16 05:45 INR 1.02 (0.92-1.08) 05/26/16 05:45 APTT 23.9 SECONDS (23.3-32.5) 05/26/16 05:45
[2016-06-02 12:34] LABS: BASO % 0.2 % (0.0-2.0); EOS # 0.1 K/uL (0.0-0.7); EOS % 0.8 % (0.0-4.0); HEMATOCRIT 34.2 % (35.0-51.0); LYMPH # 0.7 K/uL (1.0-4.3); LYMPH % 11.7 % (20.0-40.0); MEAN CELL VOLUME 79.9 fl (80.0-94.0); MEAN CORPUSCULAR HEMOGLOBIN 27.2 pg (27.0-31.0); MEAN PLATELET VOLUME 9.1 fl (7.2-11.7); MONO # 0.9 K/uL (0.0-0.8); MONO % 14.6 % (0.0-10.0); NEUT # 4.6 K/uL (1.8-7.0); NEUT % 72.7 % (50.0-75.0); NRBC % 0.1 % (0.0-0.0); RED CELL DISTRIBUTION WIDTH 13.8 % (11.5-14.5); WHITE BLOOD COUNT 6.3 K/uL (4.8-10.8)
[2016-06-02 12:47] LABS: ALKALINE PHOSPHATASE 67 U/L (38-126); ALT/SGPT 42 U/L (21-72); AST/SGOT 98 U/L (17-59); BILIRUBIN,TOTAL 0.5 mg/dl (0.2-1.3); BLOOD UREA NITROGEN 19 mg/dl (9-20); CALCIUM 10.2 mg/dL (8.4-10.2); CARBON DIOXIDE 33 mmol/L (22-30); CHLORIDE 94 mmol/L (98-107); GFR AFRICAN-AMERICAN > 60; GLUCOSE,RANDOM 96 mg/dL (75-110); POTASSIUM 4.6 MMOL/L (3.6-5.0); SODIUM 141 mmol/l (132-148); TOTAL PROTEIN 7.3 G/DL (6.3-8.2)
[2016-06-02 12:48] LABS: PARTIAL THROMBOPLASTIN TIME 33.1 SECONDS (23.3-32.5)
--- NOTE | 2016-06-02 14:50 | CP.PCM.PN ---
Subjective - Date & Time of Evaluation Date of Evaluation: 06/02/16 Time of Evaluation: 13:00 - Subjective Subjective: F/U RUL Neoplasm. Pt continue with L chest wall pain, L Scapular area and R anterior chest wall. Objective - Vital Signs/Intake and Output Vital Signs (last 24 hours): Temp Pulse Resp BP Pulse Ox 99.7 F H 84 18 116/63 96 06/02/16 10:14 06/02/16 10:14 06/02/16 10:14 06/02/16 10:14 06/02/16 10:14 - Medications Medications: Current Medications Albuterol/Ipratropium (Duoneb 3 Mg/0.5 Mg (3 Ml) Ud) 3 ml INH RTID [facility] Last Admin: 06/02/16 14:05 Dose: 3 ml Alprazolam (Xanax) 0.5 mg PO TID PRN PRN Reason: Anxiety Last Admin: 06/01/16 16:54 Dose: 0.5 mg Duloxetine HCl (Cymbalta) 30 mg PO DAILY [facility] Last Admin: 06/02/16 08:24 Dose: 30 mg Enoxaparin Sodium (Lovenox) 40 mg SC DAILY [facility] PRN Reason: Protocol Last Admin: 06/01/16 10:01 Dose: 40 mg Hydromorphone HCl (Dilaudid) 2 mg IVP Q2 PRN PRN Reason: Pain, severe (8-10) Last Admin: 06/02/16 11:18 Dose: 2 mg Ceftriaxone Sodium 1 gm/ (Sodium Chloride) 100 mls @ 100 mls/hr IVPB DAILY [facility] Last Admin: 06/02/16 09:28 Dose: 100 mls/hr Lactobacillus Acidophilus (Bacid Acidophilus) 1 cap PO BID [facility] Last Admin: 06/02/16 08:23 Dose: 1 cap Methadone HCl (Methadone) 10 mg PO Q8 [facility] Last Admin: 06/02/16 09:28 Dose: 10 mg Ondansetron HCl (Zofran Inj) 4 mg IVP Q4 PRN PRN Reason: Nausea/Vomiting Pregabalin (Lyrica) 100 mg PO Q8 [facility] Last Admin: 06/02/16 09:28 Dose: 100 mg - Labs Labs: 06/02/16 12:23 06/02/16 12:23 PT 11.1 SECONDS (9.6-11.2) 06/02/16 12:23 INR 1.07 (0.92-1.08) 06/02/16 12:23 APTT 33.1 SECONDS (23.3-32.5) H 06/02/16 12:23 - Constitutional Appears: No Acute Distress, Chronically Ill - Head Exam Head Exam: NORMAL INSPECTION - Eye Exam Eye Exam: PERRL - ENT Exam ENT Exam: Normal Oropharynx - Neck Exam Neck Exam: Normal Inspection - Respiratory Exam Respiratory Exam: Decreased Breath Sounds (RUL), Rhonchi (scattered at bases) Additional comments: Tenderness on palpation L upper lateral ribs, R upper ribs and L scapular area - Cardiovascular Exam Cardiovascular Exam: REGULAR RHYTHM - GI/Abdominal Exam GI & Abdominal Exam: Soft, Normal Bowel Sounds - Extremities Exam Extremities Exam: Normal Inspection - Back Exam Back Exam: tenderness - Neurological Exam Neurological Exam: Alert, Oriented x3. absent: Motor Sensory Deficit - Psychiatric Exam Psychiatric exam: Anxious - Skin Skin Exam: Warm Assessment and Plan (1) Neoplasm of lung, upper lobe, malignant Status: Acute (2) Malignant neoplasm metastatic to liver Status: Acute (3) CAD (coronary artery disease) Status: Chronic (4) HTN (hypertension) Status: Chronic (5) Hx of hepatitis C Status: Chronic (6) Chronic lumbosacral pain Status: Chronic (7) Chronic foot pain Status: Chronic (8) Anxiety Status: Chronic - Assessment and Plan (Free Text) Plan: Dilaudid Iv, Methadone, Rocephin, Duoneb and rest of Tx, Pathology report Small Cell lung Ca , for Life Port tomorrow to begin Chemotherapy.
[2016-06-03] MEDS: Albuterol-Ipratrop 3 mg / 0.5 (3 ml) UD INH SCH ×3 (07:29→19:57)
[2016-06-03] MEDS: Lactobacillus Acidophilus 500 MU Cap PO SCH ×2 (09:20→19:30)
[2016-06-03] MEDS ORDERED: Ketamine 50 mg/ml Inj (10 ml) ONE (09:37)
[2016-06-03] MEDS ORDERED: Midazolam 2 MG/2 ML VIAL ONE ×2 (09:37→10:38)
[2016-06-03] MEDS ORDERED: Propofol 10 mg/ml Inj (20 ML) ONE (09:38)
[2016-06-03] MEDS ORDERED: Lidocaine 1% Inj (20ml) ONE (10:34)
[2016-06-03] MEDS ORDERED: Lidocaine 1% w Epi 1:100,000 Inj ONE (10:35)
[2016-06-03] MEDS ORDERED: Fosaprepitant 150 MG in Sodium Chloride 0.9% 250 ML IVPB ONE (11:11)
[2016-06-03] MEDS ORDERED: CISPLATIN IV ONE ×2 (11:12→12:06)
[2016-06-03] MEDS ORDERED: SODIUM CHLORIDE 0.9% IV ONE ×3 (11:12→12:06)
--- NOTE | 2016-06-03 11:40 | PCM.SURG1 ---
Surgeon's Initial Post Op Note - Surgeon's Notes Surgeon: Monse [employer] Outboard Engine Mechanic: None Type of Anesthesia: IV Sedation, Local Pre-Operative Diagnosis: Lung Ca Operative Findings: Patent right IJV. Extensive LNs in the right neck. Post-Operative Diagnosis: Lung Ca Operation Performed: Right IJV access and right upper chest medication port placement. Specimen/Specimens Removed: None Estimated Blood Loss: EBL {In ML}: 3 Date of Surgery/Procedure: 06/03/16 Time of Surgery/Procedure: 11:00
[2016-06-03] MEDS: Sodium Chloride 0.9% 1,000 ML IV SCH ×2 (11:43→19:50)
[2016-06-03] MEDS ORDERED: HYDROmorphone 0.5 mg/0.5 ml ISec ONE (11:43)
--- NOTE | 2016-06-03 11:46 | CP.PCM.PN ---
Subjective - Date & Time of Evaluation Date of Evaluation: 06/03/16 Time of Evaluation: 11:40 - Subjective Subjective: Pt is in the radiology department getting a life port placed. As soon as he comes back, his chemotherapy will be started today then etoposide for 2 days more. He will receive cisplatin + etoposide. He still c/o a lot of pain in the chest, and is on pain management. Objective - Vital Signs/Intake and Output Vital Signs (last 24 hours): Temp Pulse Resp BP Pulse Ox 99.7 F H 92 H 18 124/81 99 06/03/16 09:52 06/03/16 09:52 06/03/16 09:52 06/03/16 09:52 06/03/16 09:52 - Medications Medications: Current Medications Acetaminophen (Tylenol 650mg/20.3ml Solution Ud) 650 mg PO ONCE ONE Stop: 06/03/16 11:09 Albuterol/Ipratropium (Duoneb 3 Mg/0.5 Mg (3 Ml) Ud) 3 ml INH RTID [facility] Last Admin: 06/03/16 07:29 Dose: 3 ml Alprazolam (Xanax) 0.5 mg PO TID PRN PRN Reason: Anxiety Last Admin: 06/03/16 00:44 Dose: 0.5 mg Duloxetine HCl (Cymbalta) 30 mg PO DAILY [facility] Last Admin: 06/03/16 09:20 Dose: Not Given Enoxaparin Sodium (Lovenox) 40 mg SC DAILY [facility] PRN Reason: Protocol Last Admin: 06/01/16 10:01 Dose: 40 mg Hydromorphone HCl (Dilaudid) 2 mg IVP Q2 PRN PRN Reason: Pain, severe (8-10) Last Admin: 06/03/16 09:11 Dose: 2 mg Ceftriaxone Sodium 1 gm/ (Sodium Chloride) 100 mls @ 100 mls/hr IVPB DAILY [facility] Last Admin: 06/03/16 09:16 Dose: 100 mls/hr Sodium Chloride (Sodium Chloride 0.9%) 1,000 mls @ 125 mls/hr IV .Q8H [facility] Stop: 06/04/16 09:16 Diphenhydramine HCl 25 mg/ (Sodium Chloride) 50.5 mls @ 101 mls/hr IVPB ONCE ONE Stop: 06/03/16 11:37 Dexamethasone 10 mg/ Sodium (Chloride) 51 mls @ 102 mls/hr IVPB ONCE ONE Stop: 06/03/16 11:37 Sodium Chloride (Sodium Chloride 0.9%) 1,000 mls @ 125 mls/hr IV .Q8H [facility] Stop: 06/04/16 11:16 Sodium Chloride (Sodium Chloride 0.9%) 500 mls @ 125 mls/hr IV .Q4H [facility] Ondansetron HCl 16 mg/ Sodium (Chloride) 58 mls @ 116 mls/hr IVPB ONCE ONE Stop: 06/03/16 11:37 Fosaprepitant 150 mg/ Sodium (Chloride) 250 mls @ 0 mls/hr IVPB ONCE ONE PRN Reason: As Directed Stop: 06/03/16 11:12 Cisplatin 187 mg/ Sodium (Chloride) 687 mls @ 0 mls/hr IV ONCE ONE PRN Reason: As Directed Stop: 06/03/16 11:13 Etoposide 150 mg/ Sodium (Chloride) 507.5 mls @ 0 mls/hr IV ONCE ONE PRN Reason: As Directed Stop: 06/03/16 11:14 Lactobacillus Acidophilus (Bacid Acidophilus) 1 cap PO BID [facility] Last Admin: 06/03/16 09:20 Dose: Not Given Lidocaine/Prilocaine (Lidocaine/Prilocaine 2.5%-2.5%) 1 applic TP ONCE ONE Stop: 06/03/16 11:09 Lorazepam (Ativan) 1 mg IVP ONCE ONE Stop: 06/03/16 11:51 Methadone HCl (Methadone) 10 mg PO Q8 [facility] Last Admin: 06/03/16 09:20 Dose: Not Given Ondansetron HCl (Zofran Inj) 4 mg IVP Q4 PRN PRN Reason: Nausea/Vomiting Pregabalin (Lyrica) 100 mg PO Q8 [facility] Last Admin: 06/03/16 09:20 Dose: Not Given - Labs Labs: 06/02/16 12:23 06/02/16 12:23 PT 11.1 SECONDS (9.6-11.2) 06/02/16 12:23 INR 1.07 (0.92-1.08) 06/02/16 12:23 APTT 33.1 SECONDS (23.3-32.5) H 06/02/16 12:23
[2016-06-03] MEDS ORDERED: HYDROmorphone 0.5 mg/0.5 ml ISec IVP PRN (11:49)
[2016-06-03] MEDS ORDERED: Acetaminophen 650mg/20.3ml solution UD PO ONE (12:00)
[2016-06-03] MEDS ORDERED: Lidocaine/Prilocaine CREAM 5GM TP ONE (12:00)
[2016-06-03] MEDS ORDERED: ETOPOSIDE IV ONE (12:05)
[2016-06-03] MEDS ORDERED: Dexamethasone 10 MG in Sodium Chloride 0.9% 50 ML IVPB ONE (12:15)
[2016-06-03] MEDS ORDERED: Mannitol 12.5 gm/50 ml Inj IV ONE (12:33)
[2016-06-04] MEDS: Sodium Chloride 0.9% 1,000 ML IV SCH ×3 (04:18→08:19)
[2016-06-04] MEDS: Albuterol-Ipratrop 3 mg / 0.5 (3 ml) UD INH SCH ×3 (07:34→19:24)
[2016-06-04] MEDS: Lactobacillus Acidophilus 500 MU Cap PO SCH ×2 (08:09→16:13)
[2016-06-04] MEDS ORDERED: Sodium Chloride 0.9% 1,000 ML IV ONE (10:12)
[2016-06-04] MEDS ORDERED: Dexamethasone 10 MG in Sodium Chloride 0.9% 50 ML IVPB ONE (10:45)
[2016-06-04] MEDS ORDERED: Lidocaine/Prilocaine CREAM 5GM TP ONE (10:45)
[2016-06-04] MEDS ORDERED: Mannitol 12.5 gm/50 ml Inj IV ONE ×2 (11:00→17:39)
[2016-06-04] MEDS ORDERED: Fosaprepitant 150 MG in Sodium Chloride 0.9% 250 ML IVPB ONE (11:15)
[2016-06-04] MEDS ORDERED: CISPLATIN IV ONE (12:30)
[2016-06-04] MEDS ORDERED: SODIUM CHLORIDE 0.9% IV ONE ×2 (12:30→13:00)
[2016-06-04] MEDS ORDERED: ETOPOSIDE IV ONE (13:00)
--- NOTE | 2016-06-04 13:13 | CP.PCM.PN ---
Subjective - Date & Time of Evaluation Date of Evaluation: 06/04/16 Time of Evaluation: 13:03 - Subjective Subjective: Pt could not start the chemo yesterday because he came back from [facility] placement after 2.30.pm.He has been started today, and has no problems so far. He still c/o of a fair amount of pain. Objective - Vital Signs/Intake and Output Vital Signs (last 24 hours): Temp Pulse Resp BP Pulse Ox 98.6 F 84 18 134/85 93 L 06/04/16 08:20 06/04/16 08:20 06/04/16 08:20 06/04/16 08:20 06/04/16 08:20 - Medications Medications: Current Medications Albuterol/Ipratropium (Duoneb 3 Mg/0.5 Mg (3 Ml) Ud) 3 ml INH RTID [facility] Last Admin: 06/04/16 07:34 Dose: Not Given Alprazolam (Xanax) 0.5 mg PO TID PRN PRN Reason: Anxiety Last Admin: 06/03/16 00:44 Dose: 0.5 mg Duloxetine HCl (Cymbalta) 30 mg PO DAILY [facility] Last Admin: 06/04/16 08:18 Dose: 30 mg Enoxaparin Sodium (Lovenox) 40 mg SC DAILY [facility] PRN Reason: Protocol Last Admin: 06/01/16 10:01 Dose: 40 mg Hydromorphone HCl (Dilaudid) 2 mg IVP Q2 PRN PRN Reason: Pain, severe (8-10) Last Admin: 06/04/16 11:02 Dose: 2 mg Ceftriaxone Sodium 1 gm/ (Sodium Chloride) 100 mls @ 100 mls/hr IVPB DAILY [facility] Last Admin: 06/04/16 08:18 Dose: 100 mls/hr Sodium Chloride (Sodium Chloride 0.9%) 500 mls @ 125 mls/hr IV .Q4H [facility] Cisplatin 150 mg/ Sodium (Chloride) 650 mls @ 433.333 mls/hr IV ONCE ONE PRN Reason: As Directed Stop: 06/04/16 13:59 Etoposide 187 mg/ Sodium (Chloride) 509.35 mls @ 339.567 mls/hr IV ONCE ONE PRN Reason: As Directed Stop: 06/04/16 14:29 Lactobacillus Acidophilus (Bacid Acidophilus) 1 cap PO BID [facility] Last Admin: 06/04/16 08:09 Dose: 1 cap Methadone HCl (Methadone) 10 mg PO Q8 [facility] Last Admin: 06/04/16 08:09 Dose: 10 mg Ondansetron HCl (Zofran Inj) 4 mg IVP Q4 PRN PRN Reason: Nausea/Vomiting Pregabalin (Lyrica) 100 mg PO Q8 [facility] Last Admin: 06/04/16 08:21 Dose: 100 mg - Labs Labs: 06/02/16 12:23 06/02/16 12:23 PT 11.1 SECONDS (9.6-11.2) 06/02/16 12:23 INR 1.07 (0.92-1.08) 06/02/16 12:23 APTT 33.1 SECONDS (23.3-32.5) H 06/02/16 12:23
--- NOTE | 2016-06-04 13:29 | CP.PCM.PN ---
Subjective - Date & Time of Evaluation Date of Evaluation: 06/04/16 Time of Evaluation: 09:30 - Subjective Subjective: F/U RUL Neoplasm. Pt continue with L chest wall pain, L scapular area and R anterior chest wall. Objective - Vital Signs/Intake and Output Vital Signs (last 24 hours): Temp Pulse Resp BP Pulse Ox 98.6 F 84 18 134/85 93 L 06/04/16 08:20 06/04/16 08:20 06/04/16 08:20 06/04/16 08:20 06/04/16 08:20 - Medications Medications: Current Medications Albuterol/Ipratropium (Duoneb 3 Mg/0.5 Mg (3 Ml) Ud) 3 ml INH RTID [facility] Last Admin: 06/04/16 13:28 Dose: Not Given Alprazolam (Xanax) 0.5 mg PO TID PRN PRN Reason: Anxiety Last Admin: 06/03/16 00:44 Dose: 0.5 mg Duloxetine HCl (Cymbalta) 30 mg PO DAILY [facility] Last Admin: 06/04/16 08:18 Dose: 30 mg Enoxaparin Sodium (Lovenox) 40 mg SC DAILY [facility] PRN Reason: Protocol Last Admin: 06/01/16 10:01 Dose: 40 mg Hydromorphone HCl (Dilaudid) 2 mg IVP Q2 PRN PRN Reason: Pain, severe (8-10) Last Admin: 06/04/16 11:02 Dose: 2 mg Ceftriaxone Sodium 1 gm/ (Sodium Chloride) 100 mls @ 100 mls/hr IVPB DAILY [facility] Last Admin: 06/04/16 08:18 Dose: 100 mls/hr Sodium Chloride (Sodium Chloride 0.9%) 500 mls @ 125 mls/hr IV .Q4H [facility] Cisplatin 150 mg/ Sodium (Chloride) 650 mls @ 433.333 mls/hr IV ONCE ONE PRN Reason: As Directed Stop: 06/04/16 13:59 Etoposide 187 mg/ Sodium (Chloride) 509.35 mls @ 339.567 mls/hr IV ONCE ONE PRN Reason: As Directed Stop: 06/04/16 14:29 Lactobacillus Acidophilus (Bacid Acidophilus) 1 cap PO BID [facility] Last Admin: 06/04/16 08:09 Dose: 1 cap Methadone HCl (Methadone) 10 mg PO Q8 [facility] Last Admin: 06/04/16 08:09 Dose: 10 mg Ondansetron HCl (Zofran Inj) 4 mg IVP Q4 PRN PRN Reason: Nausea/Vomiting Pregabalin (Lyrica) 100 mg PO Q8 [facility] Last Admin: 06/04/16 08:21 Dose: 100 mg - Labs Labs: 06/02/16 12:23 06/02/16 12:23 PT 11.1 SECONDS (9.6-11.2) 06/02/16 12:23 INR 1.07 (0.92-1.08) 06/02/16 12:23 APTT 33.1 SECONDS (23.3-32.5) H 06/02/16 12:23 - Constitutional Appears: No Acute Distress, Chronically Ill - Head Exam Head Exam: NORMAL INSPECTION - Eye Exam Eye Exam: PERRL - ENT Exam ENT Exam: Normal Oropharynx - Neck Exam Neck Exam: Normal Inspection - Respiratory Exam Respiratory Exam: Decreased Breath Sounds (RUL), Rhonchi (scattered) Additional comments: Tenderness on palpation L upper lateral ribs, R upper ribs, L scapular. - Cardiovascular Exam Cardiovascular Exam: REGULAR RHYTHM - GI/Abdominal Exam GI & Abdominal Exam: Soft, Normal Bowel Sounds - Extremities Exam Extremities Exam: Normal Inspection - Back Exam Back Exam: tenderness - Neurological Exam Neurological Exam: Alert, Awake, Oriented x3. absent: Motor Sensory Deficit - Psychiatric Exam Psychiatric exam: Anxious - Skin Skin Exam: Warm Assessment and Plan (1) Neoplasm of lung, upper lobe, malignant Status: Acute (2) Malignant neoplasm metastatic to liver Status: Acute (3) CAD (coronary artery disease) Status: Chronic (4) HTN (hypertension) Status: Chronic (5) Hx of hepatitis C Status: Chronic (6) Chronic lumbosacral pain Status: Chronic (7) Chronic foot pain Status: Chronic (8) Anxiety Status: Chronic - Assessment and Plan (Free Text) Plan: Pt had PICC line inserted today, having Chemo therapy now and for the next 2 days. Continue Dilaudid, Methadone and rest of Tx.
[2016-06-05] MEDS: Sodium Chloride 0.9% 1,000 ML IV SCH ×3 (02:34→19:59)
[2016-06-05] MEDS: Sodium Chloride 0.9% 500 ML IV SCH ×4 (07:59→19:42)
[2016-06-05] MEDS ORDERED: Dexamethasone 10 MG in Sodium Chloride 0.9% 50 ML IVPB ONE (08:11)
--- NOTE | 2016-06-05 08:21 | CP.PCM.PN ---
Subjective - Date & Time of Evaluation Date of Evaluation: 06/05/16 Time of Evaluation: 08:18 - Subjective Subjective: Pt received cisplatin + etoposide yesterday, and had no side effects from it. He will receive etoposide today and tomorrow. Still c/o,pain. as an out patient he had been on percocet for ankle pain, and seems to have developed high tolerance for pain medicine. Objective - Vital Signs/Intake and Output Vital Signs (last 24 hours): Temp Pulse Resp BP Pulse Ox 97.4 F L 63 20 127/75 94 L 06/05/16 08:10 06/05/16 08:10 06/05/16 08:10 06/05/16 08:10 06/05/16 08:10 - Medications Medications: Current Medications Albuterol/Ipratropium (Duoneb 3 Mg/0.5 Mg (3 Ml) Ud) 3 ml INH RTID [facility] Last Admin: 06/04/16 19:24 Dose: 3 ml Alprazolam (Xanax) 0.5 mg PO TID PRN PRN Reason: Anxiety Last Admin: 06/03/16 00:44 Dose: 0.5 mg Duloxetine HCl (Cymbalta) 30 mg PO DAILY [facility] Last Admin: 06/04/16 08:18 Dose: 30 mg Enoxaparin Sodium (Lovenox) 40 mg SC DAILY [facility] PRN Reason: Protocol Last Admin: 06/01/16 10:01 Dose: 40 mg Famotidine (Pepcid) 20 mg IVP ONCE ONE Stop: 06/05/16 09:01 Hydromorphone HCl (Dilaudid) 2 mg IVP Q2 PRN PRN Reason: Pain, severe (8-10) Last Admin: 06/05/16 07:55 Dose: 2 mg Ceftriaxone Sodium 1 gm/ (Sodium Chloride) 100 mls @ 100 mls/hr IVPB DAILY [facility] Last Admin: 06/05/16 08:05 Dose: 100 mls/hr Sodium Chloride (Sodium Chloride 0.9%) 500 mls @ 125 mls/hr IV .Q4H [facility] Last Admin: 06/05/16 07:59 Dose: Not Given Diphenhydramine HCl 25 mg/ (Sodium Chloride) 50.5 mls @ 101 mls/hr IVPB ONCE ONE Stop: 06/05/16 08:40 Dexamethasone 10 mg/ Sodium (Chloride) 51 mls @ 102 mls/hr IVPB ONCE ONE Stop: 06/05/16 08:40 Ondansetron HCl 16 mg/ Sodium (Chloride) 58 mls @ 116 mls/hr IVPB ONCE ONE Stop: 06/05/16 08:40 Etoposide 187 mg/ Sodium (Chloride) 509.35 mls @ 0 mls/hr IV ONCE ONE PRN Reason: As Directed Stop: 06/05/16 08:16 Lactobacillus Acidophilus (Bacid Acidophilus) 1 cap PO BID [facility] Last Admin: 06/04/16 16:13 Dose: 1 cap Ondansetron HCl (Zofran Inj) 4 mg IVP Q4 PRN PRN Reason: Nausea/Vomiting Pregabalin (Lyrica) 100 mg PO Q8 [facility] Last Admin: 06/05/16 01:03 Dose: 100 mg - Labs Labs: 06/02/16 12:23 06/02/16 12:23 PT 11.1 SECONDS (9.6-11.2) 06/02/16 12:23 INR 1.07 (0.92-1.08) 06/02/16 12:23 APTT 33.1 SECONDS (23.3-32.5) H 06/02/16 12:23
[2016-06-05] MEDS: Albuterol-Ipratrop 3 mg / 0.5 (3 ml) UD INH SCH ×3 (08:22→20:04)
--- NOTE | 2016-06-05 08:22 | CP.PCM.PN ---
Subjective - Date & Time of Evaluation Date of Evaluation: 06/05/16 Time of Evaluation: 08:00 - Subjective Subjective: Patient has been started on chemotherapy, which he tolerated relatively well. He still complains of severe chest wall pain, despite high opioid therapy. He appears comfortable in bed however. Per staff, patient times and asks for Dilaudid IV around the clock. He denies side effects to current regimen. Objective - Vital Signs/Intake and Output Vital Signs (last 24 hours): Temp Pulse Resp BP Pulse Ox 97.4 F L 63 20 127/75 94 L 06/05/16 08:10 06/05/16 08:10 06/05/16 08:10 06/05/16 08:10 06/05/16 08:10 - Medications Medications: Current Medications Albuterol/Ipratropium (Duoneb 3 Mg/0.5 Mg (3 Ml) Ud) 3 ml INH RTID [facility] Last Admin: 06/04/16 19:24 Dose: 3 ml Alprazolam (Xanax) 0.5 mg PO TID PRN PRN Reason: Anxiety Last Admin: 06/03/16 00:44 Dose: 0.5 mg Duloxetine HCl (Cymbalta) 30 mg PO DAILY [facility] Last Admin: 06/04/16 08:18 Dose: 30 mg Enoxaparin Sodium (Lovenox) 40 mg SC DAILY [facility] PRN Reason: Protocol Last Admin: 06/01/16 10:01 Dose: 40 mg Famotidine (Pepcid) 20 mg IVP ONCE ONE Stop: 06/05/16 09:01 Hydromorphone HCl (Dilaudid) 2 mg IVP Q2 PRN PRN Reason: Pain, severe (8-10) Last Admin: 06/05/16 07:55 Dose: 2 mg Ceftriaxone Sodium 1 gm/ (Sodium Chloride) 100 mls @ 100 mls/hr IVPB DAILY [facility] Last Admin: 06/05/16 08:05 Dose: 100 mls/hr Sodium Chloride (Sodium Chloride 0.9%) 500 mls @ 125 mls/hr IV .Q4H [facility] Last Admin: 06/05/16 07:59 Dose: Not Given Diphenhydramine HCl 25 mg/ (Sodium Chloride) 50.5 mls @ 101 mls/hr IVPB ONCE ONE Stop: 06/05/16 08:40 Dexamethasone 10 mg/ Sodium (Chloride) 51 mls @ 102 mls/hr IVPB ONCE ONE Stop: 06/05/16 08:40 Ondansetron HCl 16 mg/ Sodium (Chloride) 58 mls @ 116 mls/hr IVPB ONCE ONE Stop: 06/05/16 08:40 Etoposide 187 mg/ Sodium (Chloride) 509.35 mls @ 0 mls/hr IV ONCE ONE PRN Reason: As Directed Stop: 06/05/16 08:16 Lactobacillus Acidophilus (Bacid Acidophilus) 1 cap PO BID [facility] Last Admin: 06/04/16 16:13 Dose: 1 cap Methadone HCl (Methadone) 20 mg PO Q12 [facility] Ondansetron HCl (Zofran Inj) 4 mg IVP Q4 PRN PRN Reason: Nausea/Vomiting Pregabalin (Lyrica) 100 mg PO Q8 [facility] Last Admin: 06/05/16 01:03 Dose: 100 mg - Labs Labs: 06/02/16 12:23 06/02/16 12:23 PT 11.1 SECONDS (9.6-11.2) 06/02/16 12:23 INR 1.07 (0.92-1.08) 06/02/16 12:23 APTT 33.1 SECONDS (23.3-32.5) H 06/02/16 12:23 - Respiratory Exam Respiratory Exam: Chest Wall Tenderness - Cardiovascular Exam Cardiovascular Exam: REGULAR RHYTHM Assessment and Plan - Assessment and Plan (Free Text) Assessment: 56 man w/ lung CA, being treated with chemo, will likely be discharged in coming days. Pain management has been difficult due to his unusually high requirement given his history. - increase Methadone to 20mg q12h - continue Lyrica and Cymbalta - continue Dilaudid IV for now, patient will likely be discharged on Dilaudid PO
[2016-06-05] MEDS: Lactobacillus Acidophilus 500 MU Cap PO SCH ×2 (08:30→16:22)
[2016-06-05] MEDS: Enoxaparin 40 mg Syringe SC SCH (10:25)
--- NOTE | 2016-06-05 10:48 | VASCULAR ---
Procedure: Ultrasound and fluoroscopic right upper extremity venous access port. Clinical History: Venous port for chemotherapy for myelodysplastic disease. Procedure: Prophylactic intravenous antibiotics were administered. Intravenous sedation was administered by the attending anesthesiologist and continuous physiologic monitoring was carried out throughout the procedure. With the patient in supine position the right upper chest and neck were prepped and draped in the usual sterile fashion. Under ultrasound guidance access was obtained into the right internal jugular vein using a 21-gauge needle. Exchange was made for a 4 [place] catheter. A stiff guidewire was advanced centrally into the IVC. Right neck ultrasound also demonstrated an enlarged lymph nodes. After administration of local anesthesia a 2 cm incision was made approximately 7-9 cm from the venotomy site. A subcutaneous pocket was created using blunt and sharp dissection. The pocket was flushed with saline. An 8 [place] single-lumen long-term central venous access catheter was then tunneled from the subcutaneous pocket to the venotomy site and inserted into the jugular vein using a peel-away sheath. The catheter tip was placed at the SVC/right atrial junction using fluoroscopic guidance. The external end of the catheter was connected to the medication port and the connection was tested using injection and aspiration of saline. The incision was closed using interrupted subcutaneous 2.0 Vicryl and running subcuticular 4.0 Vicryl sutures. The incision was covered with Steri-Strips and a sterile dressing was applied. The patient tolerated the procedure without incident. Postprocedure chest radiograph was obtained to confirm location of the catheter tip at the SVC right atrial junction. There is no pneumothorax. IMPRESSION: Real-time ultrasound guided cannulation of a patent right internal jugular vein. Ultrasound and fluoroscopically guided insertion of a 8 [place] single lumen central venous access port in the right internal jugular vein.
[2016-06-05] MEDS ORDERED: ETOPOSIDE IV ONE (11:40)
[2016-06-05] MEDS ORDERED: SODIUM CHLORIDE 0.9% IV ONE (11:40)
[2016-06-05 12:38] LABS: MEAN CELL VOLUME 81.5 fl (80.0-94.0); MEAN CORPUSCULAR HEMOGLOBIN 27.4 pg (27.0-31.0); MEAN CORPUSCULAR HGB CONC 33.6 g/dL (33.0-37.0); WHITE BLOOD COUNT 5.8 K/uL (4.8-10.8)
--- NOTE | 2016-06-05 12:41 | CP.PCM.PN ---
Subjective - Date & Time of Evaluation Date of Evaluation: 06/05/16 Time of Evaluation: 10:00 - Subjective Subjective: F/U RUL Neoplasm. Pt had Chemo with no adverse effect. c/o of pain in R chest wall, R scapular, occasional cough. Objective - Vital Signs/Intake and Output Vital Signs (last 24 hours): Temp Pulse Resp BP Pulse Ox 97.4 F L 63 20 127/75 94 L 06/05/16 08:10 06/05/16 08:10 06/05/16 08:10 06/05/16 12:28 06/05/16 08:10 - Medications Medications: Current Medications Albuterol/Ipratropium (Duoneb 3 Mg/0.5 Mg (3 Ml) Ud) 3 ml INH RTID [facility] Last Admin: 06/05/16 08:22 Dose: 3 ml Alprazolam (Xanax) 0.5 mg PO TID PRN PRN Reason: Anxiety Last Admin: 06/05/16 08:30 Dose: 0.5 mg Duloxetine HCl (Cymbalta) 30 mg PO DAILY [facility] Last Admin: 06/05/16 09:15 Dose: Not Given Enoxaparin Sodium (Lovenox) 40 mg SC DAILY [facility] PRN Reason: Protocol Last Admin: 06/05/16 10:25 Dose: 40 mg Hydromorphone HCl (Dilaudid) 2 mg IVP Q2 PRN PRN Reason: Pain, severe (8-10) Last Admin: 06/05/16 07:55 Dose: 2 mg Ceftriaxone Sodium 1 gm/ (Sodium Chloride) 100 mls @ 100 mls/hr IVPB DAILY [facility] Last Admin: 06/05/16 08:05 Dose: 100 mls/hr Sodium Chloride (Sodium Chloride 0.9%) 500 mls @ 125 mls/hr IV .Q4H [facility] Last Admin: 06/05/16 12:39 Dose: Not Given Etoposide 187 mg/ Sodium (Chloride) 509.35 mls @ 339.567 mls/hr IV ONCE ONE PRN Reason: As Directed Stop: 06/05/16 13:09 Last Admin: 06/05/16 12:40 Dose: 339.567 mls/hr Lactobacillus Acidophilus (Bacid Acidophilus) 1 cap PO BID [facility] Last Admin: 06/05/16 08:30 Dose: 1 cap Methadone HCl (Methadone) 20 mg PO Q12 [facility] Last Admin: 06/05/16 10:25 Dose: 20 mg Ondansetron HCl (Zofran Inj) 4 mg IVP Q4 PRN PRN Reason: Nausea/Vomiting Pregabalin (Lyrica) 100 mg PO Q8 [facility] Last Admin: 06/05/16 08:30 Dose: 100 mg - Labs Labs: 06/02/16 12:23 06/02/16 12:23 PT 11.1 SECONDS (9.6-11.2) 06/02/16 12:23 INR 1.07 (0.92-1.08) 06/02/16 12:23 APTT 33.1 SECONDS (23.3-32.5) H 06/02/16 12:23 - Constitutional Appears: No Acute Distress - Head Exam Head Exam: NORMAL INSPECTION - Eye Exam Eye Exam: PERRL - ENT Exam ENT Exam: Normal Oropharynx - Neck Exam Neck Exam: Normal Inspection - Respiratory Exam Respiratory Exam: Decreased Breath Sounds (RUL), Rhonchi (scattered) Additional comments: Tenderness on palpation L upper lateral ribs, R upper ribs, L scapular. - Cardiovascular Exam Cardiovascular Exam: REGULAR RHYTHM - GI/Abdominal Exam GI & Abdominal Exam: Soft, Normal Bowel Sounds - Extremities Exam Extremities Exam: Normal Inspection - Back Exam Back Exam: tenderness - Neurological Exam Neurological Exam: Alert, Oriented x3. absent: Motor Sensory Deficit - Psychiatric Exam Psychiatric exam: Anxious - Skin Skin Exam: Warm Assessment and Plan (1) Neoplasm of lung, upper lobe, malignant Status: Acute (2) Malignant neoplasm metastatic to liver Status: Acute (3) CAD (coronary artery disease) Status: Chronic (4) HTN (hypertension) Status: Chronic (5) Hx of hepatitis C Status: Chronic (6) Chronic lumbosacral pain Status: Chronic (7) Chronic foot pain Status: Chronic (8) Anxiety Status: Chronic - Assessment and Plan (Free Text) Plan: Continue Dilaudid, Methadone and rest of Tx. Continue Chemo.
[2016-06-05 12:45] LABS: BLOOD UREA NITROGEN 17 mg/dl (9-20); CALCIUM 9.3 mg/dL (8.4-10.2); CARBON DIOXIDE 26 mmol/L (22-30); CHLORIDE 102 mmol/L (98-107); GFR AFRICAN-AMERICAN > 60; GLUCOSE,RANDOM 159 mg/dL (75-110); POTASSIUM 3.8 MMOL/L (3.6-5.0); SODIUM 142 mmol/l (132-148)
[2016-06-05] MEDS: Docusate-Senna 50 mg-8.6 mg Tab PO SCH (20:59)
[2016-06-06] MEDS: Sodium Chloride 0.9% 500 ML IV SCH ×9 (00:33→23:00)
[2016-06-06] MEDS: Lactobacillus Acidophilus 500 MU Cap PO SCH ×2 (08:01→16:27)
[2016-06-06] MEDS: Enoxaparin 40 mg Syringe SC SCH (08:03)
[2016-06-06] MEDS: Albuterol-Ipratrop 3 mg / 0.5 (3 ml) UD INH SCH ×3 (08:05→20:02)
[2016-06-06] MEDS ORDERED: Dexamethasone 10 MG in Sodium Chloride 0.9% 50 ML IVPB ONE (09:00)
--- NOTE | 2016-06-06 11:33 | CP.PCM.PN ---
Subjective - Date & Time of Evaluation Date of Evaluation: 06/06/16 Time of Evaluation: 11:30 - Subjective Subjective: Pt is in very good spirits today. He has tolerated the 2 days of chemotherapy well. Today is his last dose for this cycle. He was seen by palliative care nurse today who calculated his narcotic dose and it is equivalent to 75 mcg of duragesic patch. Will try to give it today and see if his pain is controlled, Objective - Vital Signs/Intake and Output Vital Signs (last 24 hours): Temp Pulse Resp BP Pulse Ox 97.5 F L 64 20 135/79 96 06/06/16 07:35 06/06/16 07:35 06/06/16 07:35 06/06/16 07:35 06/06/16 07:35 - Medications Medications: Current Medications Albuterol/Ipratropium (Duoneb 3 Mg/0.5 Mg (3 Ml) Ud) 3 ml INH RTID [facility] Last Admin: 06/06/16 08:05 Dose: 3 ml Alprazolam (Xanax) 0.5 mg PO TID PRN PRN Reason: Anxiety Last Admin: 06/06/16 07:58 Dose: 0.5 mg Docusate Sodium (Colace) 100 mg PO DAILY [facility] Last Admin: 06/06/16 08:01 Dose: 100 mg Duloxetine HCl (Cymbalta) 30 mg PO DAILY [facility] Last Admin: 06/06/16 08:02 Dose: 30 mg Enoxaparin Sodium (Lovenox) 40 mg SC DAILY [facility] PRN Reason: Protocol Last Admin: 06/06/16 08:03 Dose: 40 mg Fentanyl (Duragesic) 1 patch TD Q3D [facility] PRN Reason: Protocol Ceftriaxone Sodium 1 gm/ (Sodium Chloride) 100 mls @ 100 mls/hr IVPB DAILY [facility] Last Admin: 06/06/16 08:04 Dose: 100 mls/hr Sodium Chloride (Sodium Chloride 0.9%) 500 mls @ 125 mls/hr IV .Q4H [facility] Last Admin: 06/06/16 08:05 Dose: Not Given Etoposide 187 mg/ Sodium (Chloride) 509.35 mls @ 0 mls/hr IV ONCE ONE PRN Reason: As Directed Stop: 06/06/16 08:24 Lactobacillus Acidophilus (Bacid Acidophilus) 1 cap PO BID [facility] Last Admin: 06/06/16 08:01 Dose: 1 cap Ondansetron HCl (Zofran Inj) 4 mg IVP Q4 PRN PRN Reason: Nausea/Vomiting Pregabalin (Lyrica) 100 mg PO Q8 [facility] Last Admin: 06/06/16 08:58 Dose: 100 mg Senna/Docusate Sodium (Senokot S 50 Mg-8.6 Mg) 1 tab PO HS [facility] Last Admin: 06/05/16 20:59 Dose: 1 tab - Labs Labs: 06/05/16 12:15 06/05/16 12:15 PT 11.1 SECONDS (9.6-11.2) 06/02/16 12:23 INR 1.07 (0.92-1.08) 06/02/16 12:23 APTT 33.1 SECONDS (23.3-32.5) H 06/02/16 12:23
[2016-06-06] MEDS ORDERED: SODIUM CHLORIDE 0.9% IV ONE (11:50)
[2016-06-06] MEDS ORDERED: ETOPOSIDE IV ONE (11:50)
--- NOTE | 2016-06-06 13:08 | CP.PCM.PN ---
Subjective - Date & Time of Evaluation Date of Evaluation: 06/06/16 Time of Evaluation: 10:40 - Subjective Subjective: F/U RUL Neoplasm. Pt c/o of cough, pain in L lateral chest wall, R chest wall, L scapular area, Objective - Vital Signs/Intake and Output Vital Signs (last 24 hours): Temp Pulse Resp BP Pulse Ox 97.5 F L 64 20 135/79 96 06/06/16 07:35 06/06/16 07:35 06/06/16 07:35 06/06/16 07:35 06/06/16 07:35 - Medications Medications: Current Medications Albuterol/Ipratropium (Duoneb 3 Mg/0.5 Mg (3 Ml) Ud) 3 ml INH RTID [facility] Last Admin: 06/06/16 08:05 Dose: 3 ml Alprazolam (Xanax) 0.5 mg PO TID PRN PRN Reason: Anxiety Last Admin: 06/06/16 07:58 Dose: 0.5 mg Docusate Sodium (Colace) 100 mg PO DAILY [facility] Last Admin: 06/06/16 08:01 Dose: 100 mg Duloxetine HCl (Cymbalta) 30 mg PO DAILY [facility] Last Admin: 06/06/16 08:02 Dose: 30 mg Enoxaparin Sodium (Lovenox) 40 mg SC DAILY [facility] PRN Reason: Protocol Last Admin: 06/06/16 08:03 Dose: 40 mg Fentanyl (Duragesic) 1 patch TD Q3D [facility] PRN Reason: Protocol Ceftriaxone Sodium 1 gm/ (Sodium Chloride) 100 mls @ 100 mls/hr IVPB DAILY [facility] Last Admin: 06/06/16 08:04 Dose: 100 mls/hr Sodium Chloride (Sodium Chloride 0.9%) 500 mls @ 125 mls/hr IV .Q4H [facility] Last Admin: 06/06/16 08:05 Dose: Not Given Etoposide 187 mg/ Sodium (Chloride) 509.35 mls @ 339.567 mls/hr IV ONCE ONE PRN Reason: As Directed Stop: 06/06/16 13:19 Last Admin: 06/06/16 12:22 Dose: 339.567 mls/hr Lactobacillus Acidophilus (Bacid Acidophilus) 1 cap PO BID [facility] Last Admin: 06/06/16 08:01 Dose: 1 cap Ondansetron HCl (Zofran Inj) 4 mg IVP Q4 PRN PRN Reason: Nausea/Vomiting Pregabalin (Lyrica) 100 mg PO Q8 [facility] Last Admin: 06/06/16 08:58 Dose: 100 mg Senna/Docusate Sodium (Senokot S 50 Mg-8.6 Mg) 1 tab PO HS [facility] Last Admin: 06/05/16 20:59 Dose: 1 tab - Labs Labs: 06/05/16 12:15 06/05/16 12:15 PT 11.1 SECONDS (9.6-11.2) 06/02/16 12:23 INR 1.07 (0.92-1.08) 06/02/16 12:23 APTT 33.1 SECONDS (23.3-32.5) H 06/02/16 12:23 - Constitutional Appears: No Acute Distress, Chronically Ill - Head Exam Head Exam: NORMAL INSPECTION - Eye Exam Eye Exam: PERRL - ENT Exam ENT Exam: Normal Oropharynx - Neck Exam Neck Exam: Normal Inspection - Respiratory Exam Respiratory Exam: Decreased Breath Sounds (RUL), Rhonchi (Scattered) Additional comments: Tenderness on palpation L upper lateral ribs, R upper ribs, L scapular area. - Cardiovascular Exam Cardiovascular Exam: REGULAR RHYTHM - GI/Abdominal Exam GI & Abdominal Exam: Soft, Normal Bowel Sounds - Back Exam Back Exam: tenderness - Neurological Exam Neurological Exam: Alert, Oriented x3. absent: Motor Sensory Deficit - Psychiatric Exam Psychiatric exam: Anxious - Skin Skin Exam: Warm Assessment and Plan (1) Neoplasm of lung, upper lobe, malignant Status: Acute (2) Malignant neoplasm metastatic to liver Status: Acute (3) CAD (coronary artery disease) Status: Chronic (4) HTN (hypertension) Status: Chronic (5) Hx of hepatitis C Status: Chronic (6) Chronic lumbosacral pain Status: Chronic (7) Chronic foot pain Status: Chronic (8) Anxiety Status: Chronic - Assessment and Plan (Free Text) Plan: 3rd day with Chemo, no adverse reaction, continue Chemo f/u CBC, SMA 7 tomorrow , was seen by Palliative care nurse, and Oncology, plan: Methadone was DC, begin with Duragesic patch.
[2016-06-06] MEDS: Docusate-Senna 50 mg-8.6 mg Tab PO SCH (22:01)
[2016-06-07] MEDS: Sodium Chloride 0.9% 500 ML IV SCH ×7 (04:00→23:15)
[2016-06-07 07:30] LABS: BASO % 0.2 % (0.0-2.0); HEMATOCRIT 30.4 % (35.0-51.0); LYMPH # 0.3 K/uL (1.0-4.3); LYMPH % 4.6 % (20.0-40.0); MEAN CELL VOLUME 81.6 fl (80.0-94.0); MEAN CORPUSCULAR HEMOGLOBIN 27.1 pg (27.0-31.0); MEAN CORPUSCULAR HGB CONC 33.3 g/dL (33.0-37.0); MEAN PLATELET VOLUME 9.3 fl (7.2-11.7); MONO # 0.2 K/uL (0.0-0.8); MONO % 2.6 % (0.0-10.0); NEUT # 5.8 K/uL (1.8-7.0); NEUT % 92.6 % (50.0-75.0); NRBC % 0.1 % (0.0-0.0); PLATELET COUNT 135 K/uL (130-400); RED CELL DISTRIBUTION WIDTH 13.8 % (11.5-14.5); WHITE BLOOD COUNT 6.3 K/uL (4.8-10.8)
--- NOTE | 2016-06-07 07:45 | CP.PCM.PN ---
Subjective - Date & Time of Evaluation Date of Evaluation: 06/07/16 Time of Evaluation: 07:30 - Subjective Subjective: Charts reviewed, events noted. Patient tolerated 3 sessions of chemotherapy relatively well, and will likely be discharged and start outpatient chem soon. Methadone was d/c'ed and Fentanyl patch was started. Per patient, the patch was placed yesterday. He still insists that Dilaudid IV helps the most, but it was explained to him that outpatient therapy will be different and likely not as effective. He did say that he thinks Methadone works better for him. Objective - Vital Signs/Intake and Output Vital Signs (last 24 hours): Temp Pulse Resp BP Pulse Ox 97.4 F L 79 18 157/81 H 95 06/06/16 20:56 06/06/16 20:56 06/06/16 20:56 06/06/16 20:56 06/06/16 20:56 - Medications Medications: Current Medications Albuterol/Ipratropium (Duoneb 3 Mg/0.5 Mg (3 Ml) Ud) 3 ml INH RTID [facility] Last Admin: 06/06/16 20:02 Dose: 3 ml Alprazolam (Xanax) 0.5 mg PO TID PRN PRN Reason: Anxiety Last Admin: 06/06/16 22:04 Dose: 0.5 mg Docusate Sodium (Colace) 100 mg PO DAILY [facility] Last Admin: 06/06/16 08:01 Dose: 100 mg Duloxetine HCl (Cymbalta) 30 mg PO DAILY [facility] Last Admin: 06/06/16 08:02 Dose: 30 mg Enoxaparin Sodium (Lovenox) 40 mg SC DAILY [facility] PRN Reason: Protocol Last Admin: 06/06/16 08:03 Dose: 40 mg Fentanyl (Duragesic) 1 patch TD Q3D [facility] PRN Reason: Protocol Last Admin: 06/06/16 13:45 Dose: 1 patch Hydromorphone HCl (Dilaudid) 1 mg IVP Q2 PRN PRN Reason: Pain, severe (8-10) Last Admin: 06/07/16 06:04 Dose: 1 mg Ceftriaxone Sodium 1 gm/ (Sodium Chloride) 100 mls @ 100 mls/hr IVPB DAILY [facility] Last Admin: 06/06/16 08:04 Dose: 100 mls/hr Sodium Chloride (Sodium Chloride 0.9%) 500 mls @ 125 mls/hr IV .Q4H [facility] Last Admin: 06/07/16 04:00 Dose: Not Given Lactobacillus Acidophilus (Bacid Acidophilus) 1 cap PO BID [facility] Last Admin: 06/06/16 16:27 Dose: 1 cap Ondansetron HCl (Zofran Inj) 4 mg IVP Q4 PRN PRN Reason: Nausea/Vomiting Pregabalin (Lyrica) 100 mg PO Q8 [facility] Last Admin: 06/07/16 00:45 Dose: 100 mg Senna/Docusate Sodium (Senokot S 50 Mg-8.6 Mg) 1 tab PO HS [facility] Last Admin: 06/06/16 22:01 Dose: 1 tab - Labs Labs: 06/07/16 05:30 06/05/16 12:15 PT 11.1 SECONDS (9.6-11.2) 06/02/16 12:23 INR 1.07 (0.92-1.08) 06/02/16 12:23 APTT 33.1 SECONDS (23.3-32.5) H 06/02/16 12:23 - Respiratory Exam Respiratory Exam: Chest Wall Tenderness, NORMAL BREATHING PATTERN - Cardiovascular Exam Cardiovascular Exam: REGULAR RHYTHM Assessment and Plan - Assessment and Plan (Free Text) Assessment: 56 yo man w/ lung CA, for outpatient chemo. Methadone was discontinued in favor of Fentanyl patch. 75mcg/hr is lower than his requirement, but reasonable considering possibility of cross tolerance, however, it will likely need to be increased in the near future. - care per primary and oncology - continue Fentanyl per onc - would suggest Dilaudid 4mg PO for breakthrough pain - continue LYrica and Cymbalta - since I am not taking new patients at the clinic, primary team will need to be comfortable with pain regimen
[2016-06-07 07:52] LABS: ALB/GLOB RATIO 0.9 (1.0-2.1); ALKALINE PHOSPHATASE 75 U/L (38-126); ALT/SGPT 39 U/L (21-72); AST/SGOT 60 U/L (17-59); BILIRUBIN,TOTAL 0.3 mg/dl (0.2-1.3); BLOOD UREA NITROGEN 31 mg/dl (9-20); CALCIUM 8.2 mg/dL (8.4-10.2); CARBON DIOXIDE 26 mmol/L (22-30); CHLORIDE 105 mmol/L (98-107); GFR AFRICAN-AMERICAN > 60; GLUCOSE,RANDOM 127 mg/dL (75-110); POTASSIUM 4.3 MMOL/L (3.6-5.0); SODIUM 140 mmol/l (132-148); TOTAL PROTEIN 5.8 G/DL (6.3-8.2)
[2016-06-07] MEDS: Albuterol-Ipratrop 3 mg / 0.5 (3 ml) UD INH SCH ×3 (08:46→19:13)
[2016-06-07 09:27] LABS: NEUTROPHIL 87 % (42-75); NUCLEATED RED BLOOD CELL 1 % (0-0); TOTAL CELLS COUNTED 100
[2016-06-07] MEDS: Lactobacillus Acidophilus 500 MU Cap PO SCH ×2 (09:27→16:49)
[2016-06-07] MEDS: Enoxaparin 40 mg Syringe SC SCH (09:28)
[2016-06-07 09:33] LABS: LARGE PLATELETS PRESENT
--- NOTE | 2016-06-07 17:14 | CP.PCM.PN ---
Subjective - Date & Time of Evaluation Date of Evaluation: 06/07/16 Time of Evaluation: 15:30 - Subjective Subjective: F/U RUL Neoplasm. Pt c/o of pain in the L anterior chest wall, R anterior chest wall, L scapular. Objective - Vital Signs/Intake and Output Vital Signs (last 24 hours): Temp Pulse Resp BP Pulse Ox 98.1 F 68 18 112/74 96 06/07/16 16:40 06/07/16 16:40 06/07/16 16:40 06/07/16 16:40 06/07/16 16:40 - Medications Medications: Current Medications Albuterol/Ipratropium (Duoneb 3 Mg/0.5 Mg (3 Ml) Ud) 3 ml INH RTID [facility] Last Admin: 06/07/16 14:09 Dose: 3 ml Alprazolam (Xanax) 0.5 mg PO Q8 PRN PRN Reason: Anxiety Docusate Sodium (Colace) 100 mg PO DAILY [facility] Last Admin: 06/07/16 09:28 Dose: 100 mg Duloxetine HCl (Cymbalta) 30 mg PO DAILY [facility] Last Admin: 06/07/16 09:28 Dose: 30 mg Enoxaparin Sodium (Lovenox) 40 mg SC DAILY [facility] PRN Reason: Protocol Last Admin: 06/07/16 09:28 Dose: 40 mg Fentanyl (Duragesic) 1 patch TD Q3D [facility] PRN Reason: Protocol Last Admin: 06/06/16 13:45 Dose: 1 patch Hydromorphone HCl (Dilaudid) 4 mg PO Q4 PRN PRN Reason: Pain, severe (8-10) Last Admin: 06/07/16 16:49 Dose: 4 mg Ceftriaxone Sodium 1 gm/ (Sodium Chloride) 100 mls @ 100 mls/hr IVPB DAILY [facility] Last Admin: 06/07/16 09:29 Dose: 100 mls/hr Sodium Chloride (Sodium Chloride 0.9%) 500 mls @ 125 mls/hr IV .Q4H [facility] Last Admin: 06/07/16 12:08 Dose: 125 mls/hr Lactobacillus Acidophilus (Bacid Acidophilus) 1 cap PO BID [facility] Last Admin: 06/07/16 16:49 Dose: 1 cap Ondansetron HCl (Zofran Inj) 4 mg IVP Q4 PRN PRN Reason: Nausea/Vomiting Pregabalin (Lyrica) 100 mg PO Q8 [facility] Last Admin: 06/07/16 16:53 Dose: 100 mg Senna/Docusate Sodium (Senokot S 50 Mg-8.6 Mg) 1 tab PO HS [facility] Last Admin: 06/06/16 22:01 Dose: 1 tab - Labs Labs: 06/07/16 05:30 06/07/16 05:30 PT 11.1 SECONDS (9.6-11.2) 06/02/16 12:23 INR 1.07 (0.92-1.08) 06/02/16 12:23 APTT 33.1 SECONDS (23.3-32.5) H 06/02/16 12:23 - Constitutional Appears: No Acute Distress, Younger Than Stated Age - Head Exam Head Exam: NORMAL INSPECTION - Eye Exam Eye Exam: PERRL - ENT Exam ENT Exam: Normal Oropharynx - Neck Exam Neck Exam: Normal Inspection - Respiratory Exam Respiratory Exam: Decreased Breath Sounds (RUL), Rhonchi (scattered) Additional comments: Tenderness on palpation L uuper lateral ribs, R upper ribs, L scapular area. - Cardiovascular Exam Cardiovascular Exam: REGULAR RHYTHM - GI/Abdominal Exam GI & Abdominal Exam: Soft, Normal Bowel Sounds - Back Exam Back Exam: tenderness - Neurological Exam Neurological Exam: Alert, Oriented x3. absent: Motor Sensory Deficit - Psychiatric Exam Psychiatric exam: Anxious - Skin Skin Exam: Warm Assessment and Plan (1) Neoplasm of lung, upper lobe, malignant Status: Acute (2) Malignant neoplasm metastatic to liver Status: Acute (3) CAD (coronary artery disease) Status: Chronic (4) HTN (hypertension) Status: Chronic (5) Hx of hepatitis C Status: Chronic (6) Chronic lumbosacral pain Status: Chronic (7) Chronic foot pain Status: Chronic (8) Anxiety Status: Chronic - Assessment and Plan (Free Text) Plan: Trial of Dilaudid 4 mg tab q 4 po, continue Duragesic patch, rest of Tx, CBC in AM.
[2016-06-07] MEDS: Docusate-Senna 50 mg-8.6 mg Tab PO SCH (21:17)
[2016-06-08] MEDS: Sodium Chloride 0.9% 500 ML IV SCH ×2 (03:17→06:16)
[2016-06-08] MEDS: Albuterol-Ipratrop 3 mg / 0.5 (3 ml) UD INH SCH (07:19)
[2016-06-08] MEDS: Lactobacillus Acidophilus 500 MU Cap PO SCH ×2 (09:01→16:32)
[2016-06-08] MEDS: Enoxaparin 40 mg Syringe SC SCH (09:13)
[2016-06-08] MEDS ORDERED: Albuterol-Ipratrop 3 mg / 0.5 (3 ml) UD INH PRN (12:53)
[2016-06-08] MEDS: methylPREDNISolone 40 MG in Sodium Chloride 0.9% 50 ML IVPB SCH ×2 (13:00→16:31)
--- NOTE | 2016-06-08 13:40 | CP.PCM.PN ---
Subjective - Date & Time of Evaluation Date of Evaluation: 06/08/16 Time of Evaluation: 11:00 - Subjective Subjective: F/U RUL Neoplasm. Severe pain L , R anterior chest wall and L Scapular, cough with scanty amount of bright red blood , chest congestiion Objective - Vital Signs/Intake and Output Vital Signs (last 24 hours): Temp Pulse Resp BP Pulse Ox 98.1 F 85 20 131/82 100 06/08/16 07:54 06/08/16 07:54 06/08/16 07:54 06/08/16 07:54 06/08/16 07:54 - Medications Medications: Current Medications Albuterol/Ipratropium (Duoneb 3 Mg/0.5 Mg (3 Ml) Ud) 3 ml INH RQ4 PRN PRN Reason: Shortness of Breath Last Admin: 06/08/16 13:23 Dose: 3 ml Alprazolam (Xanax) 0.5 mg PO Q8 PRN PRN Reason: Anxiety Last Admin: 06/08/16 09:11 Dose: 0.5 mg Docusate Sodium (Colace) 100 mg PO DAILY [facility] Last Admin: 06/08/16 09:02 Dose: 100 mg Duloxetine HCl (Cymbalta) 30 mg PO DAILY [facility] Last Admin: 06/08/16 13:13 Dose: Not Given Enoxaparin Sodium (Lovenox) 40 mg SC DAILY [facility] PRN Reason: Protocol Last Admin: 06/08/16 09:13 Dose: Not Given Fentanyl (Duragesic) 1 patch TD Q3D [facility] PRN Reason: Protocol Last Admin: 06/08/16 08:53 Dose: 1 patch Fentanyl (Duragesic) 1 patch TD Q3D [facility] PRN Reason: Protocol Last Admin: 06/08/16 08:53 Dose: Not Given Hydromorphone HCl (Dilaudid) 4 mg IVP Q4H PRN PRN Reason: Pain, severe (8-10) Last Admin: 06/08/16 13:09 Dose: 4 mg Ceftriaxone Sodium 1 gm/ (Sodium Chloride) 100 mls @ 100 mls/hr IVPB DAILY [facility] Last Admin: 06/08/16 09:03 Dose: 100 mls/hr Methylprednisolone 40 mg/ (Sodium Chloride) 50 mls @ 100 mls/hr IVPB Q8 [facility] Lactobacillus Acidophilus (Bacid Acidophilus) 1 cap PO BID [facility] Last Admin: 06/08/16 09:01 Dose: 1 cap Ondansetron HCl (Zofran Inj) 4 mg IVP Q4 PRN PRN Reason: Nausea/Vomiting Pregabalin (Lyrica) 100 mg PO Q8 [facility] Last Admin: 06/08/16 09:11 Dose: 100 mg Promethazine HCl/Codeine (Phenergan/Codeine Oral Syrup) 5 ml PO Q6 PRN PRN Reason: Cough Senna/Docusate Sodium (Senokot S 50 Mg-8.6 Mg) 1 tab PO HS [facility] Last Admin: 06/07/16 21:17 Dose: Not Given - Labs Labs: 06/07/16 05:30 06/07/16 05:30 PT 11.1 SECONDS (9.6-11.2) 06/02/16 12:23 INR 1.07 (0.92-1.08) 06/02/16 12:23 APTT 33.1 SECONDS (23.3-32.5) H 06/02/16 12:23 - Constitutional Appears: Chronically Ill - Head Exam Head Exam: NORMAL INSPECTION - Eye Exam Eye Exam: PERRL - ENT Exam ENT Exam: Normal Oropharynx - Neck Exam Neck Exam: Normal Inspection - Respiratory Exam Respiratory Exam: Decreased Breath Sounds (RUL), Rhonchi (Scattered), Wheezes ( scattered) Additional comments: Tenderness on palpation L upper lateral ribs, R upper ribs, L scapular - Cardiovascular Exam Cardiovascular Exam: REGULAR RHYTHM - GI/Abdominal Exam GI & Abdominal Exam: Soft, Normal Bowel Sounds - Extremities Exam Extremities Exam: Normal Inspection - Back Exam Back Exam: tenderness - Neurological Exam Neurological Exam: Alert, Oriented x3. 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
[2016-06-08] MEDS: Promethazine/Cod 6.25mg-10mg/5ml Syr UD PO PRN (17:10)
[2016-06-08] MEDS: Docusate-Senna 50 mg-8.6 mg Tab PO SCH (21:04)
[2016-06-09] MEDS: methylPREDNISolone 40 MG in Sodium Chloride 0.9% 50 ML IVPB SCH ×3 (01:10→17:13)
[2016-06-09] MEDS: Promethazine/Cod 6.25mg-10mg/5ml Syr UD PO PRN ×2 (03:03→11:40)
[2016-06-09 07:30] LABS: BASO % 0.4 % (0.0-2.0); HEMATOCRIT 31.8 % (35.0-51.0); LYMPH # 0.3 K/uL (1.0-4.3); LYMPH % 7.3 % (20.0-40.0); MEAN CELL VOLUME 80.5 fl (80.0-94.0); MEAN CORPUSCULAR HGB CONC 33.6 g/dL (33.0-37.0); MEAN PLATELET VOLUME 8.6 fl (7.2-11.7); NEUT # 4.4 K/uL (1.8-7.0); NEUT % 91.3 % (50.0-75.0); PLATELET COUNT 175 K/uL (130-400); RED CELL DISTRIBUTION WIDTH 13.8 % (11.5-14.5); WHITE BLOOD COUNT 4.8 K/uL (4.8-10.8)
[2016-06-09 07:43] LABS: BLOOD UREA NITROGEN 25 mg/dl (9-20); CALCIUM 8.9 mg/dL (8.4-10.2); CARBON DIOXIDE 30 mmol/L (22-30); CHLORIDE 97 mmol/L (98-107); GFR AFRICAN-AMERICAN > 60; GLUCOSE,RANDOM 120 mg/dL (75-110); POTASSIUM 4.7 MMOL/L (3.6-5.0); SODIUM 137 mmol/l (132-148)
[2016-06-09] MEDS: Lactobacillus Acidophilus 500 MU Cap PO SCH ×2 (10:16→17:14)
[2016-06-09] MEDS: Enoxaparin 40 mg Syringe SC SCH (10:51)
--- NOTE | 2016-06-09 11:22 | CP.PCM.PN ---
Subjective - Date & Time of Evaluation Date of Evaluation: 06/09/16 Time of Evaluation: 11:20 - Subjective Subjective: Pt had no side effects from the chemotherapy, but he still c/o pain inspite of the duragesic + dilaudid. He aslo has had cough and some wheezing, and had a chest X ray. Objective - Vital Signs/Intake and Output Vital Signs (last 24 hours): Temp Pulse Resp BP Pulse Ox 98.5 F 75 20 117/67 96 06/09/16 07:53 06/09/16 07:53 06/09/16 07:53 06/09/16 07:53 06/09/16 07:53 - Medications Medications: Current Medications Albuterol/Ipratropium (Duoneb 3 Mg/0.5 Mg (3 Ml) Ud) 3 ml INH RQ4 PRN PRN Reason: Shortness of Breath Last Admin: 06/08/16 13:23 Dose: 3 ml Alprazolam (Xanax) 0.5 mg PO Q8 PRN PRN Reason: Anxiety Last Admin: 06/08/16 09:11 Dose: 0.5 mg Docusate Sodium (Colace) 100 mg PO DAILY [facility] Last Admin: 06/09/16 10:16 Dose: 100 mg Duloxetine HCl (Cymbalta) 30 mg PO DAILY [facility] Last Admin: 06/09/16 10:17 Dose: 30 mg Enoxaparin Sodium (Lovenox) 40 mg SC DAILY [facility] PRN Reason: Protocol Last Admin: 06/09/16 10:51 Dose: Not Given Fentanyl (Duragesic) 1 patch TD Q3D [facility] PRN Reason: Protocol Last Admin: 06/08/16 08:53 Dose: 1 patch Fentanyl (Duragesic) 1 patch TD Q3D [facility] PRN Reason: Protocol Last Admin: 06/08/16 08:53 Dose: Not Given Hydromorphone HCl (Dilaudid) 4 mg IVP Q4H PRN PRN Reason: Pain, severe (8-10) Last Admin: 06/09/16 10:26 Dose: 4 mg Ceftriaxone Sodium 1 gm/ (Sodium Chloride) 100 mls @ 100 mls/hr IVPB DAILY [facility] Last Admin: 06/08/16 09:03 Dose: 100 mls/hr Methylprednisolone 40 mg/ (Sodium Chloride) 50 mls @ 100 mls/hr IVPB Q8 [facility] Last Admin: 06/09/16 10:27 Dose: 100 mls/hr Lactobacillus Acidophilus (Bacid Acidophilus) 1 cap PO BID [facility] Last Admin: 06/09/16 10:16 Dose: 1 cap Ondansetron HCl (Zofran Inj) 4 mg IVP Q4 PRN PRN Reason: Nausea/Vomiting Promethazine HCl/Codeine (Phenergan/Codeine Oral Syrup) 5 ml PO Q6 PRN PRN Reason: Cough Last Admin: 06/09/16 03:03 Dose: 5 ml Senna/Docusate Sodium (Senokot S 50 Mg-8.6 Mg) 1 tab PO HS [facility] Last Admin: 06/08/16 21:04 Dose: Not Given - Labs Labs: 06/09/16 05:25 06/09/16 05:25 PT 11.1 SECONDS (9.6-11.2) 06/02/16 12:23 INR 1.07 (0.92-1.08) 06/02/16 12:23 APTT 33.1 SECONDS (23.3-32.5) H 06/02/16 12:23
--- NOTE | 2016-06-09 14:07 | RAD ---
HISTORY: Follow-up pneumonia. COMPARISON: 05/26/2016. TECHNIQUE: Chest PA and lateral FINDINGS: LUNGS: Progressive right upper lobe infiltrate. PLEURA: No significant pleural effusion identified. No pneumothorax apparent. CARDIOVASCULAR: No radiographic findings to suggest acute or significant cardiovascular disease. Venous access catheter in stable, satisfactory position. OSSEOUS STRUCTURES: No significant abnormalities. VISUALIZED UPPER ABDOMEN: Normal. OTHER FINDINGS: None. IMPRESSION: Progressive right upper lobe infiltrate.
[2016-06-09 14:21] LABS: NEUTROPHIL 93 % (42-75); TOTAL CELLS COUNTED 100
[2016-06-09 14:23] LABS: LARGE PLATELETS PRESENT
--- NOTE | 2016-06-09 14:50 | CP.PCM.PN ---
Subjective - Date & Time of Evaluation Date of Evaluation: 06/09/16 Time of Evaluation: 10:40 - Subjective Subjective: F/U RUL Neoplasm. Pt c/o of pain in L and R anterior chest wall, L scapular, cough at times with scanty Red blood Objective - Vital Signs/Intake and Output Vital Signs (last 24 hours): Temp Pulse Resp BP Pulse Ox 98.5 F 75 20 117/67 96 06/09/16 07:53 06/09/16 07:53 06/09/16 07:53 06/09/16 07:53 06/09/16 07:53 - Medications Medications: Current Medications Albuterol/Ipratropium (Duoneb 3 Mg/0.5 Mg (3 Ml) Ud) 3 ml INH RQ4 PRN PRN Reason: Shortness of Breath Last Admin: 06/08/16 13:23 Dose: 3 ml Alprazolam (Xanax) 0.5 mg PO Q8 PRN PRN Reason: Anxiety Last Admin: 06/08/16 09:11 Dose: 0.5 mg Docusate Sodium (Colace) 100 mg PO DAILY [facility] Last Admin: 06/09/16 10:16 Dose: 100 mg Duloxetine HCl (Cymbalta) 30 mg PO DAILY [facility] Last Admin: 06/09/16 10:17 Dose: 30 mg Fentanyl (Duragesic) 1 patch TD Q3D [facility] PRN Reason: Protocol Last Admin: 06/08/16 08:53 Dose: Not Given Hydromorphone HCl (Dilaudid) 4 mg IVP Q4H PRN PRN Reason: Pain, severe (8-10) Last Admin: 06/09/16 14:29 Dose: 4 mg Ceftriaxone Sodium 1 gm/ (Sodium Chloride) 100 mls @ 100 mls/hr IVPB DAILY [facility] Last Admin: 06/09/16 11:38 Dose: 100 mls/hr Methylprednisolone 40 mg/ (Sodium Chloride) 50 mls @ 100 mls/hr IVPB Q8 [facility] Last Admin: 06/09/16 10:27 Dose: 100 mls/hr Lactobacillus Acidophilus (Bacid Acidophilus) 1 cap PO BID [facility] Last Admin: 06/09/16 10:16 Dose: 1 cap Ondansetron HCl (Zofran Inj) 4 mg IVP Q4 PRN PRN Reason: Nausea/Vomiting Pregabalin (Lyrica) 100 mg PO Q8 [facility] Promethazine HCl/Codeine (Phenergan/Codeine Oral Syrup) 5 ml PO Q6 PRN PRN Reason: Cough Last Admin: 06/09/16 11:40 Dose: 5 ml Senna/Docusate Sodium (Senokot S 50 Mg-8.6 Mg) 1 tab PO HS [facility] Last Admin: 06/08/16 21:04 Dose: Not Given - Labs Labs: 06/09/16 05:25 06/09/16 05:25 PT 11.1 SECONDS (9.6-11.2) 06/02/16 12:23 INR 1.07 (0.92-1.08) 06/02/16 12:23 APTT 33.1 SECONDS (23.3-32.5) H 06/02/16 12:23 - Constitutional Appears: No Acute Distress, Chronically Ill - Head Exam Head Exam: NORMAL INSPECTION - Eye Exam Eye Exam: PERRL - ENT Exam ENT Exam: Normal Oropharynx - Neck Exam Neck Exam: Normal Inspection - Respiratory Exam Respiratory Exam: Decreased Breath Sounds (RUL), Rhonchi (scattere b/l), Wheezes (scattered) Additional comments: Tenderness on palpation R-L anterior chest wall, L scapular. - Cardiovascular Exam Cardiovascular Exam: REGULAR RHYTHM - GI/Abdominal Exam GI & Abdominal Exam: Soft, Normal Bowel Sounds - Extremities Exam Extremities Exam: Normal Inspection - Back Exam Back Exam: tenderness - Neurological Exam Neurological Exam: Alert, Oriented x3. absent: Motor Sensory Deficit - Psychiatric Exam Psychiatric exam: Anxious - Skin Skin Exam: Warm Assessment and Plan (1) Neoplasm of lung, upper lobe, malignant Status: Acute (2) Malignant neoplasm metastatic to liver Status: Acute (3) CAD (coronary artery disease) Status: Chronic (4) HTN (hypertension) Status: Chronic (5) Hx of hepatitis C Status: Chronic (6) Chronic lumbosacral pain Status: Chronic (7) Chronic foot pain Status: Chronic (8) Anxiety Status: Chronic - Assessment and Plan (Free Text) Plan: Duragesic patch, Dilaudid, Rocephin, Duoneb, Solumedrol and rest of Tx.
[2016-06-09] MEDS: Docusate-Senna 50 mg-8.6 mg Tab PO SCH (22:47)
[2016-06-10] MEDS: methylPREDNISolone 40 MG in Sodium Chloride 0.9% 50 ML IVPB SCH ×3 (01:21→16:17)
[2016-06-10] MEDS: Lactobacillus Acidophilus 500 MU Cap PO SCH ×2 (08:33→16:25)
--- NOTE | 2016-06-10 10:58 | CP.PCM.PN ---
Subjective - Date & Time of Evaluation Date of Evaluation: 06/10/16 Time of Evaluation: 10:53 - Subjective Subjective: Pt is feeling better, and pain seems to be controlled with a Duragesic patch and IV Dilaudid 4 mg q 4 hrs. His CBC is in the normal range. Will speak to the primary physician to try to switch his dilaudid to po. Objective - Vital Signs/Intake and Output Vital Signs (last 24 hours): Temp Pulse Resp BP Pulse Ox 97.8 F 79 20 112/71 96 06/10/16 07:59 06/10/16 07:59 06/10/16 07:59 06/10/16 07:59 06/10/16 07:59 - Medications Medications: Current Medications Albuterol/Ipratropium (Duoneb 3 Mg/0.5 Mg (3 Ml) Ud) 3 ml INH RQ4 PRN PRN Reason: Shortness of Breath Last Admin: 06/08/16 13:23 Dose: 3 ml Alprazolam (Xanax) 0.5 mg PO Q8 PRN PRN Reason: Anxiety Last Admin: 06/09/16 22:47 Dose: 0.5 mg Docusate Sodium (Colace) 100 mg PO DAILY [facility] Last Admin: 06/10/16 08:33 Dose: 100 mg Duloxetine HCl (Cymbalta) 30 mg PO DAILY [facility] Last Admin: 06/10/16 08:32 Dose: Not Given Fentanyl (Duragesic) 1 patch TD Q3D [facility] PRN Reason: Protocol Last Admin: 06/08/16 08:53 Dose: Not Given Fentanyl (Duragesic) 1 patch TD Q3D [facility] PRN Reason: Protocol Hydromorphone HCl (Dilaudid) 4 mg IVP Q4H PRN PRN Reason: Pain, severe (8-10) Last Admin: 06/10/16 07:59 Dose: 4 mg Ceftriaxone Sodium 1 gm/ (Sodium Chloride) 100 mls @ 100 mls/hr IVPB DAILY [facility] Last Admin: 06/10/16 08:33 Dose: 100 mls/hr Methylprednisolone 40 mg/ (Sodium Chloride) 50 mls @ 100 mls/hr IVPB Q8 [facility] Last Admin: 06/10/16 08:33 Dose: 100 mls/hr Lactobacillus Acidophilus (Bacid Acidophilus) 1 cap PO BID [facility] Last Admin: 06/10/16 08:33 Dose: 1 cap Ondansetron HCl (Zofran Inj) 4 mg IVP Q4 PRN PRN Reason: Nausea/Vomiting Pregabalin (Lyrica) 100 mg PO Q8 [facility] Last Admin: 06/10/16 08:36 Dose: 100 mg Promethazine HCl/Codeine (Phenergan/Codeine Oral Syrup) 5 ml PO Q6 PRN PRN Reason: Cough Last Admin: 06/09/16 11:40 Dose: 5 ml Senna/Docusate Sodium (Senokot S 50 Mg-8.6 Mg) 1 tab PO HS [facility] Last Admin: 06/09/16 22:47 Dose: Not Given - Labs Labs: 06/09/16 05:25 06/09/16 05:25 PT 11.1 SECONDS (9.6-11.2) 06/02/16 12:23 INR 1.07 (0.92-1.08) 06/02/16 12:23 APTT 33.1 SECONDS (23.3-32.5) H 06/02/16 12:23
--- NOTE | 2016-06-10 13:56 | CP.PCM.PN ---
Subjective - Date & Time of Evaluation Date of Evaluation: 06/10/16 Time of Evaluation: 13:15 - Subjective Subjective: F/U RUL Neoplasm. Cough productive, Chest congestion, pain R L upper anterior chest wall and L Scapular Objective - Vital Signs/Intake and Output Vital Signs (last 24 hours): Temp Pulse Resp BP Pulse Ox 97.8 F 79 20 112/71 96 06/10/16 07:59 06/10/16 07:59 06/10/16 07:59 06/10/16 07:59 06/10/16 07:59 - Medications Medications: Current Medications Albuterol/Ipratropium (Duoneb 3 Mg/0.5 Mg (3 Ml) Ud) 3 ml INH RQ4 PRN PRN Reason: Shortness of Breath Last Admin: 06/08/16 13:23 Dose: 3 ml Alprazolam (Xanax) 0.5 mg PO Q8 PRN PRN Reason: Anxiety Last Admin: 06/09/16 22:47 Dose: 0.5 mg Docusate Sodium (Colace) 100 mg PO DAILY [facility] Last Admin: 06/10/16 08:33 Dose: 100 mg Duloxetine HCl (Cymbalta) 30 mg PO DAILY [facility] Last Admin: 06/10/16 08:32 Dose: Not Given Fentanyl (Duragesic) 1 patch TD Q3D [facility] PRN Reason: Protocol Last Admin: 06/10/16 12:01 Dose: 1 patch Hydromorphone HCl (Dilaudid) 4 mg IVP Q4H PRN PRN Reason: Pain, severe (8-10) Last Admin: 06/10/16 12:01 Dose: 4 mg Ceftriaxone Sodium 1 gm/ (Sodium Chloride) 100 mls @ 100 mls/hr IVPB DAILY [facility] Last Admin: 06/10/16 08:33 Dose: 100 mls/hr Methylprednisolone 40 mg/ (Sodium Chloride) 50 mls @ 100 mls/hr IVPB Q8 [facility] Last Admin: 06/10/16 08:33 Dose: 100 mls/hr Lactobacillus Acidophilus (Bacid Acidophilus) 1 cap PO BID [facility] Last Admin: 06/10/16 08:33 Dose: 1 cap Ondansetron HCl (Zofran Inj) 4 mg IVP Q4 PRN PRN Reason: Nausea/Vomiting Pregabalin (Lyrica) 100 mg PO Q8 [facility] Last Admin: 06/10/16 08:36 Dose: 100 mg Promethazine HCl/Codeine (Phenergan/Codeine Oral Syrup) 5 ml PO Q6 PRN PRN Reason: Cough Last Admin: 06/09/16 11:40 Dose: 5 ml Senna/Docusate Sodium (Senokot S 50 Mg-8.6 Mg) 1 tab PO HS [facility] Last Admin: 06/09/16 22:47 Dose: Not Given - Labs Labs: 06/09/16 05:25 06/09/16 05:25 PT 11.1 SECONDS (9.6-11.2) 06/02/16 12:23 INR 1.07 (0.92-1.08) 06/02/16 12:23 APTT 33.1 SECONDS (23.3-32.5) H 06/02/16 12:23 - Constitutional Appears: No Acute Distress, Chronically Ill - Head Exam Head Exam: NORMAL INSPECTION - Eye Exam Eye Exam: PERRL - ENT Exam ENT Exam: Normal Oropharynx - Neck Exam Neck Exam: Normal Inspection - Respiratory Exam Respiratory Exam: Decreased Breath Sounds (RUL), Rhonchi (scattered b/l), Wheezes (scattered) Additional comments: tenderness L , R upper anterior chest wall , L Scapular - Cardiovascular Exam Cardiovascular Exam: REGULAR RHYTHM - GI/Abdominal Exam GI & Abdominal Exam: Soft, Normal Bowel Sounds - Extremities Exam Extremities Exam: Normal Inspection - Back Exam Back Exam: tenderness - Neurological Exam Neurological Exam: Alert, Oriented x3. absent: Motor Sensory Deficit - Psychiatric Exam Psychiatric exam: Anxious - Skin Skin Exam: Warm Assessment and Plan (1) CAD (coronary artery disease) Status: Chronic (2) HTN (hypertension) Status: Chronic (3) Malignant neoplasm metastatic to liver Status: Acute (4) Neoplasm of lung, upper lobe, malignant Status: Acute (5) Chronic lumbosacral pain Status: Chronic (6) Hx of hepatitis C Status: Chronic (7) Chronic foot pain Status: Chronic (8) Anxiety Status: Chronic (9) Acute bronchitis Status: Acute - Assessment and Plan (Free Text) Plan: Continue Dilaudid , Duragesic Patch ,Rocephin , Cymbalta , Lyrica , Prometh with Codeine , DuoNeb, f/u CXR today
[2016-06-10 15:43] LABS: RBC URINE < 1 /hpf (0-3); URINE BILIRUBIN NEGATIVE (NEGATIVE); URINE BLOOD NEGATIVE (NEGATIVE); URINE COLOR YELLOW (YELLOW); URINE GLUCOSE (UA) 50 mg/dL (Normal); URINE KETONE NEGATIVE (NEGATIVE); URINE LEUKOCYTE ESTERASE NEG Leu/uL (Negative); URINE PROTEIN 30 mg/dL (NEGATIVE); URINE UROBILINOGEN 0.2-1.0 mg/dL (0.2-1.0); WBC URINE 1 /hpf (0-5)
[2016-06-10] MEDS: Docusate-Senna 50 mg-8.6 mg Tab PO SCH (21:22)
[2016-06-11] MEDS: methylPREDNISolone 40 MG in Sodium Chloride 0.9% 50 ML IVPB SCH ×3 (00:27→16:10)
[2016-06-11 06:58] LABS: BASO % 0.1 % (0.0-2.0); EOS % 0.3 % (0.0-4.0); HEMATOCRIT 29.8 % (35.0-51.0); LYMPH # 0.4 K/uL (1.0-4.3); LYMPH % 11.9 % (20.0-40.0); MEAN CORPUSCULAR HEMOGLOBIN 27.6 pg (27.0-31.0); MEAN CORPUSCULAR HGB CONC 34.9 g/dL (33.0-37.0); MEAN PLATELET VOLUME 8.4 fl (7.2-11.7); MONO # 0.1 K/uL (0.0-0.8); MONO % 1.7 % (0.0-10.0); NEUT # 2.8 K/uL (1.8-7.0); NRBC % 0.1 % (0.0-0.0); RED CELL DISTRIBUTION WIDTH 13.6 % (11.5-14.5); WHITE BLOOD COUNT 3.2 K/uL (4.8-10.8)
[2016-06-11] MEDS: Lactobacillus Acidophilus 500 MU Cap PO SCH ×2 (08:59→16:10)
--- NOTE | 2016-06-11 10:00 | CP.PCM.PN ---
Subjective - Date & Time of Evaluation Date of Evaluation: 06/11/16 Time of Evaluation: 09:58 - Subjective Subjective: Pt seems comfortable with the iv Dilaudid and duragesic. His WBC count has dropped to 2.3 and I have started him on granix before he drops further Objective - Vital Signs/Intake and Output Vital Signs (last 24 hours): Temp Pulse Resp BP Pulse Ox 97.8 F 70 20 117/80 98 06/11/16 08:03 06/11/16 08:03 06/11/16 08:03 06/11/16 08:03 06/11/16 08:03 - Medications Medications: Current Medications Albuterol/Ipratropium (Duoneb 3 Mg/0.5 Mg (3 Ml) Ud) 3 ml INH RQ4 PRN PRN Reason: Shortness of Breath Last Admin: 06/08/16 13:23 Dose: 3 ml Alprazolam (Xanax) 0.5 mg PO Q8 PRN PRN Reason: Anxiety Last Admin: 06/11/16 09:12 Dose: 0.5 mg Docusate Sodium (Colace) 100 mg PO DAILY [facility] Last Admin: 06/11/16 08:59 Dose: 100 mg Duloxetine HCl (Cymbalta) 30 mg PO DAILY [facility] Last Admin: 06/11/16 09:01 Dose: Not Given Enoxaparin Sodium (Lovenox) 40 mg SC DAILY [facility] PRN Reason: Protocol Fentanyl (Duragesic) 1 patch TD Q3D [facility] PRN Reason: Protocol Last Admin: 06/10/16 12:01 Dose: 1 patch Hydromorphone HCl (Dilaudid) 4 mg IVP Q4H PRN PRN Reason: Pain, severe (8-10) Last Admin: 06/11/16 08:57 Dose: 4 mg Ceftriaxone Sodium 1 gm/ (Sodium Chloride) 100 mls @ 100 mls/hr IVPB DAILY [facility] Last Admin: 06/11/16 09:03 Dose: 100 mls/hr Methylprednisolone 40 mg/ (Sodium Chloride) 50 mls @ 100 mls/hr IVPB Q8 [facility] Last Admin: 06/11/16 09:03 Dose: 100 mls/hr Lactobacillus Acidophilus (Bacid Acidophilus) 1 cap PO BID [facility] Last Admin: 06/11/16 08:59 Dose: 1 cap Ondansetron HCl (Zofran Inj) 4 mg IVP Q4 PRN PRN Reason: Nausea/Vomiting Pregabalin (Lyrica) 100 mg PO Q8 [facility] Last Admin: 06/11/16 08:59 Dose: 100 mg Promethazine HCl/Codeine (Phenergan/Codeine Oral Syrup) 5 ml PO Q6 PRN PRN Reason: Cough Last Admin: 06/09/16 11:40 Dose: 5 ml Senna/Docusate Sodium (Senokot S 50 Mg-8.6 Mg) 1 tab PO HS [facility] Last Admin: 06/10/16 21:22 Dose: 1 tab - Labs Labs: 06/11/16 05:50 06/09/16 05:25 PT 11.1 SECONDS (9.6-11.2) 06/02/16 12:23 INR 1.07 (0.92-1.08) 06/02/16 12:23 APTT 33.1 SECONDS (23.3-32.5) H 06/02/16 12:23
--- NOTE | 2016-06-11 13:52 | CT ---
PROCEDURE: CT Chest without contrast HISTORY: Pneumonia COMPARISON: CT chest, abdomen and pelvis 05/23/2016 TECHNIQUE: Contiguous axial images were obtained through the chest without intravenous contrast enhancement. Sagittal and coronal reconstructions were performed. Radiation dose (DLP): 696.70 mGy-cm. This CT exam was performed using one or more of the following dose reduction techniques: Automated exposure control, adjustment of the mA and/or kV according to patient size, and/or use of iterative reconstruction technique. FINDINGS: LUNGS: Extensive irregular consolidation/soft tissue density in right upper lobe. Diffuse ground-glass density in right upper lobe. Interlobular septal thickening noted, nonspecific. This is more pronounced than on prior CT examination. The extent of consolidation or soft tissue mass is markedly increased since prior CT. MEDIASTINUM: Unremarkable thoracic aorta. No aneurysm. Normal sized heart. Main pulmonary artery unremarkable. No vascular congestion. Extensive mediastinal lymphadenopathy contiguous with right hilar mass surrounding right mainstem bronchus. The extent of mediastinal lymphadenopathy is decreased when compared to prior examination. Right hilar soft tissue mass is markedly decreased in size. There is high attenuation seen within all of the enlarged lymph nodes in the mediastinum and within the right hilar mass. Significance uncertain. This may reflect response to treatment. There is probable central necrosis within a portion of this right hilar mass best demonstrated on series 2, image 46 and 47. Again, this may reflect response to treatment. Note is made of a right central venous infusion catheter terminating at cavoatrial junction. PLEURA: Trace left pleural effusion. No right pleural effusion. BONES: No fracture. Two lucent lesions within T4 vertebral body, uncertain significance. Possibility of metastatic disease should be considered however there is no evidence of widespread lytic or blastic bony metastasis. Incidentally noted block vertebra involving T7 and T8 vertebral bodies. UPPER ABDOMEN: Multiple hepatic masses, predominantly small lesions with larger 2.1 cm mass noted in medial segment left hepatic lobe best seen series 2, image 118. OTHER FINDINGS: None. IMPRESSION: Extensive consolidations/ soft tissue density throughout right upper lobe, irregular, with diffuse right upper lobe ground-glass density and interstitial infiltrate manifested as interlobular septal thickening in superior segment. This may represent spread of previously demonstrated neoplasm versus infectious process. There is decreased size of right hilar mass and decreased extent of mediastinal lymphadenopathy when compared to prior CT examination. Ill-defined increased attenuation is seen within all of the mediastinal nodes, possibly reflecting response to treatment. Numerous hepatic masses, largest 2.1 cm seen in medial segment left hepatic lobe.
--- NOTE | 2016-06-11 15:14 | CP.PCM.PN ---
Subjective - Date & Time of Evaluation Date of Evaluation: 06/11/16 Time of Evaluation: 12:10 - Subjective Subjective: F/U RUL Neoplasm Continue with pain in L-R anterior chest wall, L scapular, scanty cough, non productive, no hemoptysis, less chest congestion. Objective - Vital Signs/Intake and Output Vital Signs (last 24 hours): Temp Pulse Resp BP Pulse Ox 97.8 F 70 20 117/80 98 06/11/16 08:03 06/11/16 08:03 06/11/16 08:03 06/11/16 08:03 06/11/16 08:03 - Medications Medications: Current Medications Albuterol/Ipratropium (Duoneb 3 Mg/0.5 Mg (3 Ml) Ud) 3 ml INH RQ4 PRN PRN Reason: Shortness of Breath Last Admin: 06/08/16 13:23 Dose: 3 ml Alprazolam (Xanax) 0.5 mg PO Q8 PRN PRN Reason: Anxiety Last Admin: 06/11/16 09:12 Dose: 0.5 mg Docusate Sodium (Colace) 100 mg PO DAILY [facility] Last Admin: 06/11/16 08:59 Dose: 100 mg Duloxetine HCl (Cymbalta) 30 mg PO DAILY [facility] Last Admin: 06/11/16 09:01 Dose: Not Given Enoxaparin Sodium (Lovenox) 40 mg SC DAILY [facility] PRN Reason: Protocol Fentanyl (Duragesic) 1 patch TD Q3D [facility] PRN Reason: Protocol Last Admin: 06/10/16 12:01 Dose: 1 patch Hydromorphone HCl (Dilaudid) 4 mg IVP Q4H PRN PRN Reason: Pain, severe (8-10) Last Admin: 06/11/16 12:01 Dose: 4 mg Ceftriaxone Sodium 1 gm/ (Sodium Chloride) 100 mls @ 100 mls/hr IVPB DAILY [facility] Last Admin: 06/11/16 09:03 Dose: 100 mls/hr Methylprednisolone 40 mg/ (Sodium Chloride) 50 mls @ 100 mls/hr IVPB Q8 [facility] Last Admin: 06/11/16 09:03 Dose: 100 mls/hr Lactobacillus Acidophilus (Bacid Acidophilus) 1 cap PO BID [facility] Last Admin: 06/11/16 08:59 Dose: 1 cap Ondansetron HCl (Zofran Inj) 4 mg IVP Q4 PRN PRN Reason: Nausea/Vomiting Pregabalin (Lyrica) 100 mg PO Q8 [facility] Last Admin: 06/11/16 08:59 Dose: 100 mg Promethazine HCl/Codeine (Phenergan/Codeine Oral Syrup) 5 ml PO Q6 PRN PRN Reason: Cough Last Admin: 06/09/16 11:40 Dose: 5 ml Senna/Docusate Sodium (Senokot S 50 Mg-8.6 Mg) 1 tab PO HS [facility] Last Admin: 06/10/16 21:22 Dose: 1 tab - Labs Labs: 06/11/16 05:50 06/09/16 05:25 PT 11.1 SECONDS (9.6-11.2) 06/02/16 12:23 INR 1.07 (0.92-1.08) 06/02/16 12:23 APTT 33.1 SECONDS (23.3-32.5) H 06/02/16 12:23 - Constitutional Appears: No Acute Distress, Chronically Ill - Head Exam Head Exam: NORMAL INSPECTION - Eye Exam Eye Exam: PERRL - ENT Exam ENT Exam: Normal Oropharynx - Neck Exam Neck Exam: Normal Inspection - Respiratory Exam Respiratory Exam: Decreased Breath Sounds (RUL), Rhonchi (few scattered at bases ) Additional comments: Tenderness L-R anterior chest wall, L scapular - Cardiovascular Exam Cardiovascular Exam: REGULAR RHYTHM - GI/Abdominal Exam GI & Abdominal Exam: Soft, Normal Bowel Sounds - Extremities Exam Extremities Exam: Normal Inspection - Back Exam Back Exam: tenderness - Neurological Exam Neurological Exam: Alert, Oriented x3. absent: Motor Sensory Deficit - Psychiatric Exam Psychiatric exam: Anxious - Skin Skin Exam: Warm Assessment and Plan (1) CAD (coronary artery disease) Status: Chronic (2) HTN (hypertension) Status: Chronic (3) Malignant neoplasm metastatic to liver Status: Acute (4) Neoplasm of lung, upper lobe, malignant Status: Acute (5) Chronic lumbosacral pain Status: Chronic (6) Hx of hepatitis C Status: Chronic (7) Chronic foot pain Status: Chronic (8) Anxiety Status: Chronic (9) Acute bronchitis Status: Acute - Assessment and Plan (Free Text) Plan: F/U CT Chest, continue Dilaudid, Solumedrol, Lovenox and rest of Tx.
[2016-06-11] MEDS: Enoxaparin 40 mg Syringe SC SCH (16:10)
[2016-06-11] MEDS: Docusate-Senna 50 mg-8.6 mg Tab PO SCH (21:17)
[2016-06-12] MEDS: methylPREDNISolone 40 MG in Sodium Chloride 0.9% 50 ML IVPB SCH ×3 (00:37→17:16)
[2016-06-12 07:46] LABS: HEMATOCRIT 29.6 % (35.0-51.0); MEAN CORPUSCULAR HEMOGLOBIN 26.9 pg (27.0-31.0); MEAN CORPUSCULAR HGB CONC 33.6 g/dL (33.0-37.0); RED CELL DISTRIBUTION WIDTH 13.4 % (11.5-14.5)
[2016-06-12 08:15] LABS: BLOOD UREA NITROGEN 30 mg/dl (9-20); CALCIUM 8.9 mg/dL (8.4-10.2); CARBON DIOXIDE 30 mmol/L (22-30); CHLORIDE 95 mmol/L (98-107); CHOLESTEROL 175 mg/dL (0-199); GFR AFRICAN-AMERICAN > 60; GLUCOSE,RANDOM 121 mg/dL (75-110); POTASSIUM 4.5 MMOL/L (3.6-5.0); SODIUM 134 mmol/l (132-148)
--- NOTE | 2016-06-12 08:47 | CP.PCM.PN ---
Subjective - Date & Time of Evaluation Date of Evaluation: 06/12/16 Time of Evaluation: 08:44 - Subjective Subjective: Pt is feeling better, with pain well controlled.. The chest x ray showed some consolidation in the right upper lobe which may be secondary to the tumor itself.The mediastinal mass seems a little smaller. No change in the nodules in the liver. Objective - Vital Signs/Intake and Output Vital Signs (last 24 hours): Temp Pulse Resp BP Pulse Ox 97.9 F 100 H 18 110/72 98 06/12/16 08:02 06/12/16 08:02 06/12/16 08:02 06/12/16 08:02 06/12/16 08:02 - Medications Medications: Current Medications Albuterol/Ipratropium (Duoneb 3 Mg/0.5 Mg (3 Ml) Ud) 3 ml INH RQ4 PRN PRN Reason: Shortness of Breath Last Admin: 06/08/16 13:23 Dose: 3 ml Alprazolam (Xanax) 0.5 mg PO Q8 PRN PRN Reason: Anxiety Last Admin: 06/11/16 19:17 Dose: 0.5 mg Docusate Sodium (Colace) 100 mg PO DAILY [facility] Last Admin: 06/11/16 08:59 Dose: 100 mg Duloxetine HCl (Cymbalta) 30 mg PO DAILY [facility] Last Admin: 06/11/16 09:01 Dose: Not Given Enoxaparin Sodium (Lovenox) 40 mg SC DAILY [facility] PRN Reason: Protocol Last Admin: 06/11/16 16:10 Dose: 40 mg Fentanyl (Duragesic) 1 patch TD Q3D [facility] PRN Reason: Protocol Last Admin: 06/10/16 12:01 Dose: 1 patch Hydromorphone HCl (Dilaudid) 4 mg IVP Q4H PRN PRN Reason: Pain, severe (8-10) Last Admin: 06/12/16 05:50 Dose: 4 mg Ceftriaxone Sodium 1 gm/ (Sodium Chloride) 100 mls @ 100 mls/hr IVPB DAILY [facility] Last Admin: 06/11/16 09:03 Dose: 100 mls/hr Methylprednisolone 40 mg/ (Sodium Chloride) 50 mls @ 100 mls/hr IVPB Q8 [facility] Last Admin: 06/12/16 00:37 Dose: 100 mls/hr Lactobacillus Acidophilus (Bacid Acidophilus) 1 cap PO BID [facility] Last Admin: 06/11/16 16:10 Dose: 1 cap Ondansetron HCl (Zofran Inj) 4 mg IVP Q4 PRN PRN Reason: Nausea/Vomiting Pregabalin (Lyrica) 100 mg PO Q8 [facility] Last Admin: 06/12/16 00:36 Dose: 100 mg Promethazine HCl/Codeine (Phenergan/Codeine Oral Syrup) 5 ml PO Q6 PRN PRN Reason: Cough Last Admin: 06/09/16 11:40 Dose: 5 ml Senna/Docusate Sodium (Senokot S 50 Mg-8.6 Mg) 1 tab PO HS [facility] Last Admin: 06/11/16 21:17 Dose: 1 tab - Labs Labs: 06/12/16 05:50 06/12/16 05:50 PT 11.1 SECONDS (9.6-11.2) 06/02/16 12:23 INR 1.07 (0.92-1.08) 06/02/16 12:23 APTT 33.1 SECONDS (23.3-32.5) H 06/02/16 12:23
[2016-06-12] MEDS: Lactobacillus Acidophilus 500 MU Cap PO SCH ×2 (08:50→17:14)
[2016-06-12] MEDS: Enoxaparin 40 mg Syringe SC SCH (08:50)
--- NOTE | 2016-06-12 12:56 | CP.PCM.PN ---
Subjective - Date & Time of Evaluation Date of Evaluation: 06/12/16 Time of Evaluation: 10:00 - Subjective Subjective: F/U RUL Neoplasm. Cough with scanty amount of phlegms, no hemoptysis, pain L-R anterior chest wall , L scapular. Objective - Vital Signs/Intake and Output Vital Signs (last 24 hours): Temp Pulse Resp BP Pulse Ox 97.9 F 100 H 18 110/72 98 06/12/16 08:02 06/12/16 08:02 06/12/16 08:02 06/12/16 08:02 06/12/16 08:02 - Medications Medications: Current Medications Albuterol/Ipratropium (Duoneb 3 Mg/0.5 Mg (3 Ml) Ud) 3 ml INH RQ4 PRN PRN Reason: Shortness of Breath Last Admin: 06/08/16 13:23 Dose: 3 ml Alprazolam (Xanax) 0.5 mg PO Q8 PRN PRN Reason: Anxiety Last Admin: 06/11/16 19:17 Dose: 0.5 mg Docusate Sodium (Colace) 100 mg PO DAILY [facility] Last Admin: 06/12/16 08:51 Dose: 100 mg Duloxetine HCl (Cymbalta) 30 mg PO DAILY [facility] Last Admin: 06/12/16 08:50 Dose: Not Given Enoxaparin Sodium (Lovenox) 40 mg SC DAILY [facility] PRN Reason: Protocol Last Admin: 06/12/16 08:50 Dose: 40 mg Hydromorphone HCl (Dilaudid) 4 mg IVP Q4H PRN PRN Reason: Pain, severe (8-10) Last Admin: 06/12/16 10:00 Dose: 4 mg Methylprednisolone 40 mg/ (Sodium Chloride) 50 mls @ 100 mls/hr IVPB Q8 [facility] Last Admin: 06/12/16 08:51 Dose: 100 mls/hr Piperacillin Sod/Tazobactam (Sod 3.375 gm/ Sodium Chloride) 100 mls @ 100 mls/ hr IVPB Q8 [facility] Lactobacillus Acidophilus (Bacid Acidophilus) 1 cap PO BID [facility] Last Admin: 06/12/16 08:50 Dose: 1 cap Levofloxacin/Dextrose (Levaquin 500mg) 500 mg IVPB DAILY [facility] Pregabalin (Lyrica) 100 mg PO Q8 [facility] Last Admin: 06/12/16 08:54 Dose: 100 mg Promethazine HCl/Codeine (Phenergan/Codeine Oral Syrup) 5 ml PO Q6 PRN PRN Reason: Cough Last Admin: 06/09/16 11:40 Dose: 5 ml Senna/Docusate Sodium (Senokot S 50 Mg-8.6 Mg) 1 tab PO HS [facility] Last Admin: 06/11/16 21:17 Dose: 1 tab - Labs Labs: 06/12/16 05:50 06/12/16 05:50 PT 11.1 SECONDS (9.6-11.2) 06/02/16 12:23 INR 1.07 (0.92-1.08) 06/02/16 12:23 APTT 33.1 SECONDS (23.3-32.5) H 06/02/16 12:23 - Constitutional Appears: No Acute Distress, Chronically Ill - Head Exam Head Exam: NORMAL INSPECTION - Eye Exam Eye Exam: PERRL - ENT Exam ENT Exam: Normal Exam - Neck Exam Neck Exam: Normal Inspection - Respiratory Exam Respiratory Exam: Decreased Breath Sounds (RUL), Rhonchi (scattered b/l) Additional comments: Tenderness L-R upper anterior chest wall, L scapular - Cardiovascular Exam Cardiovascular Exam: REGULAR RHYTHM - GI/Abdominal Exam GI & Abdominal Exam: Soft, Normal Bowel Sounds - Extremities Exam Extremities Exam: Normal Inspection - Back Exam Back Exam: rash noted - Neurological Exam Neurological Exam: Alert, Oriented x3. absent: Motor Sensory Deficit - Psychiatric Exam Psychiatric exam: Anxious - Skin Skin Exam: Warm Assessment and Plan (1) Neoplasm of lung, upper lobe, malignant Status: Acute (2) PNA (pneumonia) Status: Acute (3) Malignant neoplasm metastatic to liver Status: Acute (4) CAD (coronary artery disease) Status: Chronic (5) HTN (hypertension) Status: Chronic (6) Chronic lumbosacral pain Status: Chronic (7) Hx of hepatitis C Status: Chronic (8) Chronic foot pain Status: Chronic (9) Anxiety Status: Chronic (10) Acute bronchitis Status: Acute - Assessment and Plan (Free Text) Plan: CT shows increased infiltrate RUL, may represent Post obstructive PNA, start Levaquin, Vanco, Duoneb, Dilaudid, f/u Sputum C-S. ID consult.
[2016-06-12] MEDS: Piperacillin/Tazobact 3.375 GM in Sodium Chloride 0.9% 100 ML IVPB SCH ×2 (16:53→17:16)
[2016-06-12] MEDS ORDERED: cefTRIAXone 2 GM in Sodium Chloride 0.9% 100 ML IVPB STA (19:04)
--- NOTE | 2016-06-12 19:06 | CP.PCM.CON ---
History of Present Illness - History of Present Illness History of Present Illness: POSITIVE CULTURES WITH STREP RESISTANT TO PCN ADDED ROCEPHIN Past Patient History - Infectious Disease Hx of Infectious Diseases: None - Past Medical History & Family History Past Medical History?: Yes - Past Social History Smoking Status: Heavy Smoker > 10 Cigarettes Daily Alcohol: Social Drugs: Denies Home Situation {Lives}: Alone - CARDIAC Hx Cardiac Disorders: Yes Hx Hypercholesterolemia: Yes Hx Hypertension: Yes - PULMONARY Hx Respiratory Disorders: No Other/Comment: current smoker - NEUROLOGICAL Hx Neurological Disorder: No - HEENT Hx HEENT Problems: No - RENAL Hx Chronic Kidney Disease: No - ENDOCRINE/METABOLIC Hx Endocrine Disorders: No - HEMATOLOGICAL/ONCOLOGICAL Hx Blood Disorders: Yes Hx Hepatitis C: Yes - INTEGUMENTARY Hx Dermatological Problems: No - MUSCULOSKELETAL/RHEUMATOLOGICAL Hx Musculoskeletal Disorders: Yes (L foot pain s/p ORIF 2nd to Fx.) Hx Back Pain: Yes Hx Falls: No - GASTROINTESTINAL Hx Gastrointestinal Disorders: No - GENITOURINARY/GYNECOLOGICAL Hx Genitourinary Disorders: No - PSYCHIATRIC Hx Psychophysiologic Disorder: Yes Hx Anxiety: Yes Hx Substance Use: No (denies) - SURGICAL HISTORY Hx Surgeries: Yes Hx Coronary Stent: Yes - ANESTHESIA Hx Anesthesia: Yes Hx Anesthesia Reactions: No Meds Allergies/Adverse Reactions: Allergies Allergy/AdvReac Type Severity Reaction Status Date / Time No Known Allergies Allergy Verified 04/22/14 11:33 - Medications Medications: Current Medications Albuterol/Ipratropium (Duoneb 3 Mg/0.5 Mg (3 Ml) Ud) 3 ml INH RQ4 PRN PRN Reason: Shortness of Breath Last Admin: 06/08/16 13:23 Dose: 3 ml Alprazolam (Xanax) 0.5 mg PO Q8 PRN PRN Reason: Anxiety Last Admin: 06/12/16 17:22 Dose: 0.5 mg Docusate Sodium (Colace) 100 mg PO DAILY [facility] Last Admin: 06/12/16 08:51 Dose: 100 mg Duloxetine HCl (Cymbalta) 30 mg PO DAILY [facility] Last Admin: 06/12/16 08:50 Dose: Not Given Enoxaparin Sodium (Lovenox) 40 mg SC DAILY [facility] PRN Reason: Protocol Last Admin: 06/12/16 08:50 Dose: 40 mg Hydromorphone HCl (Dilaudid) 4 mg IVP Q4H PRN PRN Reason: Pain, severe (8-10) Last Admin: 06/12/16 18:13 Dose: 4 mg Methylprednisolone 40 mg/ (Sodium Chloride) 50 mls @ 100 mls/hr IVPB Q8 [facility] Last Admin: 06/12/16 17:16 Dose: 100 mls/hr Levofloxacin/Dextrose (Levaquin 500mg) 500 mg in 100 mls @ 100 mls/hr IVPB DAILY [facility] Ceftriaxone Sodium 2 gm/ (Sodium Chloride) 100 mls @ 100 mls/hr IVPB DAILY [facility] Ceftriaxone Sodium 2,000 mg/ (Sodium Chloride) 100 mls @ 100 mls/hr IVPB STAT STA Stop: 06/12/16 20:03 Lactobacillus Acidophilus (Bacid Acidophilus) 1 cap PO BID [facility] Last Admin: 06/12/16 17:14 Dose: 1 cap Pregabalin (Lyrica) 100 mg PO Q8 [facility] Last Admin: 06/12/16 17:14 Dose: 100 mg Promethazine HCl/Codeine (Phenergan/Codeine Oral Syrup) 5 ml PO Q6 PRN PRN Reason: Cough Last Admin: 06/09/16 11:40 Dose: 5 ml Senna/Docusate Sodium (Senokot S 50 Mg-8.6 Mg) 1 tab PO HS [facility] Last Admin: 06/11/16 21:17 Dose: 1 tab Results - Vital Signs Recent Vital Signs: Last Vital Signs Temp 97.5 F L 06/12/16 15:43 Pulse 85 06/12/16 15:43 Resp 18 06/12/16 15:43 BP 101/68 06/12/16 15:43 Pulse Ox 98 06/12/16 15:43 - Labs Result Diagrams: 06/12/16 05:50 06/12/16 05:50 Labs: Laboratory Results - last 24 hr 06/12/16 06/12/16 05:50 05:50 WBC 4.0 L RBC 3.70 L Hgb 9.9 L Hct 29.6 L MCV 80.0 MCH 26.9 L MCHC 33.6 RDW 13.4 Plt Count 116 L D Sodium 134 Potassium 4.5 Chloride 95 L Carbon Dioxide 30 Anion Gap 14 BUN 30 H Creatinine 0.8 Est GFR ( Amer) > 60 Est GFR (Non-Af Amer) > 60 Random Glucose 121 H Calcium 8.9 Triglycerides 66 D Cholesterol 175 LDL Cholesterol Direct 123 HDL Cholesterol 32
[2016-06-12] MEDS: Docusate-Senna 50 mg-8.6 mg Tab PO SCH (22:02)
[2016-06-13] MEDS: methylPREDNISolone 40 MG in Sodium Chloride 0.9% 50 ML IVPB SCH ×3 (00:27→16:45)
[2016-06-13] MEDS: Lactobacillus Acidophilus 500 MU Cap PO SCH ×2 (08:43→16:45)
[2016-06-13] MEDS: cefTRIAXone 2 GM in Sodium Chloride 0.9% 100 ML IVPB SCH (08:44)
[2016-06-13] MEDS: Enoxaparin 40 mg Syringe SC SCH (08:45)
[2016-06-13] MEDS: levoFLOXacin 500 mg in D5W 500 MG/100 ML BAG IVPB SCH ×2 (08:46→11:25)
--- NOTE | 2016-06-13 13:31 | CP.PCM.CON ---
History of Present Illness - History of Present Illness History of Present Illness: 56 y/o M, referred [place] for + fluid culture and gram neg in sputum final report pending SH Pt heavy smoker, 1 PPD quit few month ago. Pt denied: Chronic cough, fever, chills, numbness, syncope, blurred vision, n/v /d, abdominal pain, dizziness, urinary symptoms, sick contact, recent travel. PMHx: Chronic Lumbago, Pain L Foot, CAD S/P Coronary stent, HTN, Dyslipidemia, Anxiety. Denied Hx of Bronchial Asthma. CT Chest shows: R large Hilar Mass with some infiltrate upper lobe, could be post obstructive PNA. RUL Ronchi appear narrow by Tumor. CT Abd/Pelv showing the Liver with multiple hepatic Metastasis. CT Head: No intracranial abnormality. EKG: Normal sinus rhythm. Review of Systems - Constitutional Constitutional: As Per HPI, Anorexia - EENT Eyes: absent: As Per HPI, Blind Spots, Blurred Vision, Change in Vision, Decreased Night Vision, Diplopia, Discharge, Dry Eye, Exophthalmos, Floaters, Irritation, Itchy Eyes, Loss of Peripheral Vision, Pain, Photophobia, Requires Corrective Lenses, Sees Flashes, Spots in Vision, Tunnel Vision, Other Visual Disturbances, Loss of Vision, Other Ears: absent: As Per HPI, Decreased Hearing, Ear Discharge, Ear Pain, Tinnitus, Abnormal Hearing, Disequilibrium, Dizziness, Other Nose/Mouth/Throat: absent: As Per HPI, Epistaxis, Nasal Congestion, Nasal Discharge, Nasal Obstruction, Nasal Trauma, Nose Pain, Post Nasal Drip, Sinus Pain, Sinus Pressure, Bleeding Gums, Change in Voice, Dental Pain, Dry Mouth, Dysphagia, Halitosis, Hoarsness, Lip Swelling, Mouth Lesions, Mouth Pain, Odynophagia, Sore Throat, Throat Swelling, Tongue Swelling, Facial Pain, Neck Pain, Neck Mass, Other - Cardiovascular Cardiovascular: absent: As Per HPI, Acrocyanosis, Chest Pain, Chest Pain at Rest , Chest Pain with Activity, Claudication, Diaphoresis, Dyspnea, Dyspnea on Exertion, Edema, Irregular Heart Rhythm, Pain Radiating to Arm/Neck/Jaw, Leg Edema, Leg Ulcers, Lightheadedness, Orthopnea, Palpitations, Paroxysmal Nocturnal Dyspnea, Pedal Edema, Radiating Pain, Rapid Heart Rate, Slow Heart Rate, Syncope, Other - Respiratory Respiratory: As Per HPI - Gastrointestinal Gastrointestinal: absent: As Per HPI, Abdominal Pain, Belching, Bloating, Change in Bowel Habits, Change in Stool Character, Coffee Ground Emesis, Constipation, Cramping, Diarrhea, Dyspepsia, Dysphagia, Early Satiety, Excessive Flatus, Fecal Incontinence, Heartburn, Hematemesis, Hematochezia, Loose Stools, Melena, Nausea, Odynophagia, Temesmus, Vomiting, Other - Genitourinary Genitourinary: absent: As Per HPI, Change in Urinary Stream, Difficulty Urinating, Dysuria, Flank Pain, Hematuria, Pyuria, Nocturia, Urinary Incontinence, Urinary Frequency, Urinary Hesitance, Urinary Urgency, Voiding Freq/Small Amts, Freq UTI, Hx Renal/Bladder Calculi, Hx /Renal Surgery, Bladder Distension, Other - Musculoskeletal Musculoskeletal: absent: As Per HPI, Abnormal Gait, Arthralgias, Atrophy, Back Pain, Deformity, Joint Swelling, Limited Range of Motion, Loss of Height, Muscle Cramps, Muscle Weakness, Myalgias, Neck Pain, Numbness, Radiating Pain into Limb, Stiffness, Tingling, Other - Integumentary Integumentary: absent: As Per HPI, Acne, Alopecia, Bleeding Lesions, Change in Hair, Change in Nails, Change in Pigmentation, Changing Lesions, Dry Skin, Erythema, Furuncle, Hirsutism, Lesions, New Lesions, Non-Healing Lesions, Photosensitivity, Pruritus, Rash, Skin Pain, Skin Ulcer, Sores, Striae, Swelling , Unusual Bruising, Wounds, Jaundice, Other - Neurological Neurological: absent: As Per HPI, Abnormal Gait, Abnormal Hearing, Abnormal Movements, Abnormal Speech, Behavioral Changes, Burning Sensations, Confusion, Convulsions, Disequilibrium, Dizziness, Numbness, Focal Weakness, Frequent Falls , Headaches, Lack of Coordination, Loss of Vision, Memory Loss, Paresthesias, Radicular Pain, Restless Legs, Sensory Deficit, Syncope, Tingling, Tremor, Vertigo, Weakness, Other Visual Disturbances, Other - Psychiatric Psychiatric: absent: As Per HPI, Abnormal Sleep Pattern, Anhedonia, Anxiety, Auditory Hallucinations, Behavioral Changes, Change in Appetite, Change in Libido, Confusion, Depression, Difficulty Concentrating, Hallucinations, Homicidal Ideation, Hopelessness, Irritability, Memory Loss, Mood Swings, Panic Attacks, Paranoia, Suicidal Ideation, Visual Hallucinations, Tactile Hallucinations, Other - Endocrine Endocrine: absent: As Per HPI, Change in Body Appearance, Change in Libido, Cold Intolorance, Deepening of Voice, Excessive Sweating, Fatigue, Flushing, Heat Intolorance, Increase in Ring/Shoe/Hat Size, Palpitations, Polydipsia, Polyphagia, Polyuria, Other - Hematologic/Lymphatic Hematologic: absent: As Per HPI, Easy Bleeding, Easy Bruising, Lymphadenopathy, Other Past Patient History - Infectious Disease Hx of Infectious Diseases: None - Past Medical History & Family History Past Medical History?: Yes - Past Social History Smoking Status: Heavy Smoker > 10 Cigarettes Daily Alcohol: Social Drugs: Denies Home Situation {Lives}: Alone - CARDIAC Hx Cardiac Disorders: Yes Hx Hypercholesterolemia: Yes Hx Hypertension: Yes - PULMONARY Hx Respiratory Disorders: No Other/Comment: current smoker - NEUROLOGICAL Hx Neurological Disorder: No - HEENT Hx HEENT Problems: No - RENAL Hx Chronic Kidney Disease: No - ENDOCRINE/METABOLIC Hx Endocrine Disorders: No - HEMATOLOGICAL/ONCOLOGICAL Hx Blood Disorders: Yes Hx Hepatitis C: Yes - INTEGUMENTARY Hx Dermatological Problems: No - MUSCULOSKELETAL/RHEUMATOLOGICAL Hx Musculoskeletal Disorders: Yes (L foot pain s/p ORIF 2nd to Fx.) Hx Back Pain: Yes Hx Falls: No - GASTROINTESTINAL Hx Gastrointestinal Disorders: No - GENITOURINARY/GYNECOLOGICAL Hx Genitourinary Disorders: No - PSYCHIATRIC Hx Psychophysiologic Disorder: Yes Hx Anxiety: Yes Hx Substance Use: No (denies) - SURGICAL HISTORY Hx Surgeries: Yes Hx Coronary Stent: Yes - ANESTHESIA Hx Anesthesia: Yes Hx Anesthesia Reactions: No Meds Allergies/Adverse Reactions: Allergies Allergy/AdvReac Type Severity Reaction Status Date / Time No Known Allergies Allergy Verified 04/22/14 11:33 - Medications Medications: Current Medications Albuterol/Ipratropium (Duoneb 3 Mg/0.5 Mg (3 Ml) Ud) 3 ml INH RQ4 PRN PRN Reason: Shortness of Breath Last Admin: 06/08/16 13:23 Dose: 3 ml Alprazolam (Xanax) 0.5 mg PO Q8 PRN PRN Reason: Anxiety Last Admin: 06/12/16 17:22 Dose: 0.5 mg Docusate Sodium (Colace) 100 mg PO DAILY [facility] Last Admin: 06/13/16 08:45 Dose: 100 mg Duloxetine HCl (Cymbalta) 30 mg PO DAILY [facility] Last Admin: 06/13/16 08:45 Dose: Not Given Enoxaparin Sodium (Lovenox) 40 mg SC DAILY [facility] PRN Reason: Protocol Last Admin: 06/13/16 08:45 Dose: 40 mg Hydromorphone HCl (Dilaudid) 4 mg IVP Q4H PRN PRN Reason: Pain, severe (8-10) Last Admin: 06/13/16 10:35 Dose: 4 mg Methylprednisolone 40 mg/ (Sodium Chloride) 50 mls @ 100 mls/hr IVPB Q8 [facility] Last Admin: 06/13/16 08:44 Dose: 100 mls/hr Levofloxacin/Dextrose (Levaquin 500mg) 500 mg in 100 mls @ 100 mls/hr IVPB DAILY [facility] Last Admin: 06/13/16 11:25 Dose: 100 mls/hr Ceftriaxone Sodium 2 gm/ (Sodium Chloride) 100 mls @ 100 mls/hr IVPB DAILY [facility] Last Admin: 06/13/16 08:44 Dose: 100 mls/hr Lactobacillus Acidophilus (Bacid Acidophilus) 1 cap PO BID [facility] Last Admin: 06/13/16 08:43 Dose: 1 cap Lactulose (Enulose) 20 gm PO DAILY PRN PRN Reason: Constipation Pregabalin (Lyrica) 100 mg PO Q8 [facility] Last Admin: 06/13/16 08:43 Dose: 100 mg Promethazine HCl/Codeine (Phenergan/Codeine Oral Syrup) 5 ml PO Q6 PRN PRN Reason: Cough Last Admin: 06/09/16 11:40 Dose: 5 ml Senna/Docusate Sodium (Senokot S 50 Mg-8.6 Mg) 1 tab PO HS [facility] Last Admin: 06/12/16 22:02 Dose: 1 tab Physical Exam - Constitutional Appears: Non-toxic, Chronically Ill - Head Exam Head Exam: NORMOCEPHALIC - Eye Exam Eye Exam: absent: Scleral icterus - ENT Exam ENT Exam: Mucous Membranes Dry - Neck Exam Neck exam: Negative for: Lymphadenopathy - Respiratory Exam Respiratory Exam: Decreased Breath Sounds, Rhonchi - Cardiovascular Exam Cardiovascular Exam: REGULAR RHYTHM, +S1, +S2 - GI/Abdominal Exam GI & Abdominal Exam: Diminished Bowel Sounds, Soft. absent: Tenderness - Rectal Exam Rectal Exam: Deferred - Exam Exam: NORMAL INSPECTION - Extremities Exam Extremities exam: Negative for: calf tenderness, pedal edema - Back Exam Back exam: absent: CVA tenderness (L), CVA tenderness (R) - Neurological Exam Neurological exam: Alert, CN II-XII Intact, Oriented x3, Reflexes Normal - Psychiatric Exam Psychiatric exam: Depressed - Skin Skin Exam: Dry Results - Vital Signs Recent Vital Signs: Last Vital Signs Temp 97.4 F L 06/13/16 08:21 Pulse 81 06/13/16 08:21 Resp 20 06/13/16 08:21 BP 142/83 06/13/16 08:21 Pulse Ox 98 06/13/16 08:21 - Labs Result Diagrams: 06/12/16 05:50 06/12/16 05:50 Assessment & Plan (1) Acute bronchitis Status: Acute (2) Chest pain Status: Acute (3) Malignant neoplasm metastatic to liver Status: Acute Priority: High (4) Neoplasm of lung, upper lobe, malignant Status: Acute (5) Anxiety Status: Chronic Priority: High (6) CAD (coronary artery disease) Status: Chronic Priority: Medium - Assessment and Plan (Free Text) Assessment: possible post obst pneumonia cont iv rx
--- NOTE | 2016-06-13 14:50 | CP.PCM.PN ---
Subjective - Date & Time of Evaluation Date of Evaluation: 06/13/16 Time of Evaluation: 09:20 - Subjective Subjective: F/U RUL Neoplasm / PNA Pt with R - L chest wall and L scapular pain. Objective - Vital Signs/Intake and Output Vital Signs (last 24 hours): Temp Pulse Resp BP Pulse Ox 97.4 F L 81 20 142/83 98 06/13/16 08:21 06/13/16 08:21 06/13/16 08:21 06/13/16 08:21 06/13/16 08:21 - Medications Medications: Current Medications Albuterol/Ipratropium (Duoneb 3 Mg/0.5 Mg (3 Ml) Ud) 3 ml INH RQ4 PRN PRN Reason: Shortness of Breath Last Admin: 06/08/16 13:23 Dose: 3 ml Alprazolam (Xanax) 0.5 mg PO Q8 PRN PRN Reason: Anxiety Last Admin: 06/12/16 17:22 Dose: 0.5 mg Docusate Sodium (Colace) 100 mg PO DAILY [facility] Last Admin: 06/13/16 08:45 Dose: 100 mg Duloxetine HCl (Cymbalta) 30 mg PO DAILY [facility] Last Admin: 06/13/16 08:45 Dose: Not Given Enoxaparin Sodium (Lovenox) 40 mg SC DAILY [facility] PRN Reason: Protocol Last Admin: 06/13/16 08:45 Dose: 40 mg Hydromorphone HCl (Dilaudid) 4 mg IVP Q4H PRN PRN Reason: Pain, severe (8-10) Last Admin: 06/13/16 14:31 Dose: 4 mg Methylprednisolone 40 mg/ (Sodium Chloride) 50 mls @ 100 mls/hr IVPB Q8 [facility] Last Admin: 06/13/16 08:44 Dose: 100 mls/hr Levofloxacin/Dextrose (Levaquin 500mg) 500 mg in 100 mls @ 100 mls/hr IVPB DAILY [facility] Last Admin: 06/13/16 11:25 Dose: 100 mls/hr Ceftriaxone Sodium 2 gm/ (Sodium Chloride) 100 mls @ 100 mls/hr IVPB DAILY [facility] Last Admin: 06/13/16 08:44 Dose: 100 mls/hr Lactobacillus Acidophilus (Bacid Acidophilus) 1 cap PO BID [facility] Last Admin: 06/13/16 08:43 Dose: 1 cap Lactulose (Enulose) 20 gm PO DAILY PRN PRN Reason: Constipation Pregabalin (Lyrica) 100 mg PO Q8 [facility] Last Admin: 06/13/16 08:43 Dose: 100 mg Promethazine HCl/Codeine (Phenergan/Codeine Oral Syrup) 5 ml PO Q6 PRN PRN Reason: Cough Last Admin: 06/09/16 11:40 Dose: 5 ml Senna/Docusate Sodium (Senokot S 50 Mg-8.6 Mg) 1 tab PO HS [facility] Last Admin: 06/12/16 22:02 Dose: 1 tab - Labs Labs: 06/12/16 05:50 06/12/16 05:50 PT 11.1 SECONDS (9.6-11.2) 06/02/16 12:23 INR 1.07 (0.92-1.08) 06/02/16 12:23 APTT 33.1 SECONDS (23.3-32.5) H 06/02/16 12:23 - Constitutional Appears: No Acute Distress, Chronically Ill - Head Exam Head Exam: NORMAL INSPECTION - Eye Exam Eye Exam: PERRL - ENT Exam ENT Exam: Normal Oropharynx - Neck Exam Neck Exam: Normal Inspection - Respiratory Exam Respiratory Exam: Decreased Breath Sounds (RUL), Rhonchi (Scattered b/l), Wheezes (scattered) Additional comments: Tenderness L-R upper anterior chest wall, L scapular. - Cardiovascular Exam Cardiovascular Exam: REGULAR RHYTHM - GI/Abdominal Exam GI & Abdominal Exam: Soft, Normal Bowel Sounds - Extremities Exam Extremities Exam: Normal Inspection - Back Exam Back Exam: tenderness - Neurological Exam Neurological Exam: Alert, Oriented x3. absent: Motor Sensory Deficit - Psychiatric Exam Psychiatric exam: Anxious - Skin Skin Exam: Warm Assessment and Plan (1) CAD (coronary artery disease) Status: Chronic (2) HTN (hypertension) Status: Chronic (3) Malignant neoplasm metastatic to liver Status: Acute (4) Neoplasm of lung, upper lobe, malignant Status: Acute (5) Chronic lumbosacral pain Status: Chronic (6) Hx of hepatitis C Status: Chronic (7) Chronic foot pain Status: Chronic (8) Anxiety Status: Chronic (9) Acute bronchitis Status: Acute - Assessment and Plan (Free Text) Plan: Continue Rocephin, Dilaudid and rest of Tx.
[2016-06-13] MEDS: Docusate-Senna 50 mg-8.6 mg Tab PO SCH (22:14)
[2016-06-14] MEDS: methylPREDNISolone 40 MG in Sodium Chloride 0.9% 50 ML IVPB SCH ×3 (00:45→16:33)
[2016-06-14] MEDS: cefTRIAXone 2 GM in Sodium Chloride 0.9% 100 ML IVPB SCH (08:19)
[2016-06-14] MEDS: Enoxaparin 40 mg Syringe SC SCH (08:20)
[2016-06-14] MEDS: levoFLOXacin 500 mg in D5W 500 MG/100 ML BAG IVPB SCH (08:20)
[2016-06-14] MEDS: Lactobacillus Acidophilus 500 MU Cap PO SCH ×2 (08:20→16:33)
--- NOTE | 2016-06-14 14:23 | CP.PCM.PN ---
Subjective - Date & Time of Evaluation Date of Evaluation: 06/14/16 Time of Evaluation: 15:00 - Subjective Subjective: F/U RUL Neoplasm R-L chest wall and L scapular pain. Objective - Vital Signs/Intake and Output Vital Signs (last 24 hours): Temp Pulse Resp BP Pulse Ox 98.5 F 84 20 106/68 97 06/14/16 07:34 06/14/16 07:34 06/14/16 07:34 06/14/16 07:34 06/14/16 07:34 - Medications Medications: Current Medications Albuterol/Ipratropium (Duoneb 3 Mg/0.5 Mg (3 Ml) Ud) 3 ml INH RQ4 PRN PRN Reason: Shortness of Breath Last Admin: 06/08/16 13:23 Dose: 3 ml Alprazolam (Xanax) 0.5 mg PO Q8 PRN PRN Reason: Anxiety Last Admin: 06/12/16 17:22 Dose: 0.5 mg Docusate Sodium (Colace) 100 mg PO DAILY [facility] Last Admin: 06/14/16 08:21 Dose: 100 mg Duloxetine HCl (Cymbalta) 30 mg PO DAILY [facility] Last Admin: 06/14/16 08:18 Dose: Not Given Enoxaparin Sodium (Lovenox) 40 mg SC DAILY [facility] PRN Reason: Protocol Last Admin: 06/14/16 08:20 Dose: 40 mg Hydromorphone HCl (Dilaudid) 4 mg IVP Q4H PRN PRN Reason: Pain, severe (8-10) Last Admin: 06/14/16 14:16 Dose: 4 mg Methylprednisolone 40 mg/ (Sodium Chloride) 50 mls @ 100 mls/hr IVPB Q8 [facility] Last Admin: 06/14/16 08:19 Dose: 100 mls/hr Levofloxacin/Dextrose (Levaquin 500mg) 500 mg in 100 mls @ 100 mls/hr IVPB DAILY [facility] Last Admin: 06/14/16 08:20 Dose: 100 mls/hr Ceftriaxone Sodium 2 gm/ (Sodium Chloride) 100 mls @ 100 mls/hr IVPB DAILY [facility] Last Admin: 06/14/16 08:19 Dose: 100 mls/hr Lactobacillus Acidophilus (Bacid Acidophilus) 1 cap PO BID [facility] Last Admin: 06/14/16 08:20 Dose: 1 cap Lactulose (Enulose) 20 gm PO DAILY PRN PRN Reason: Constipation Pregabalin (Lyrica) 100 mg PO Q8 [facility] Last Admin: 06/14/16 08:23 Dose: 100 mg Promethazine HCl/Codeine (Phenergan/Codeine Oral Syrup) 5 ml PO Q6 PRN PRN Reason: Cough Last Admin: 06/09/16 11:40 Dose: 5 ml Senna/Docusate Sodium (Senokot S 50 Mg-8.6 Mg) 1 tab PO HS [facility] Last Admin: 06/13/16 22:14 Dose: 1 tab - Labs Labs: 06/12/16 05:50 06/12/16 05:50 PT 11.1 SECONDS (9.6-11.2) 06/02/16 12:23 INR 1.07 (0.92-1.08) 06/02/16 12:23 APTT 33.1 SECONDS (23.3-32.5) H 06/02/16 12:23 - Constitutional Appears: No Acute Distress, Chronically Ill - Head Exam Head Exam: NORMAL INSPECTION - Eye Exam Eye Exam: PERRL - ENT Exam ENT Exam: Normal Oropharynx - Neck Exam Neck Exam: Normal Inspection - Respiratory Exam Respiratory Exam: Decreased Breath Sounds (RUL), Rhonchi (scattered), Wheezes ( scattered) Additional comments: Tenderness L-R upper anterior chest wall, L scapular - Cardiovascular Exam Cardiovascular Exam: REGULAR RHYTHM - GI/Abdominal Exam GI & Abdominal Exam: Soft, Normal Bowel Sounds - Extremities Exam Extremities Exam: Normal Inspection - Back Exam Back Exam: tenderness - Neurological Exam Neurological Exam: Alert, Oriented x3. absent: Motor Sensory Deficit - Psychiatric Exam Psychiatric exam: Anxious - Skin Skin Exam: Warm Assessment and Plan (1) CAD (coronary artery disease) Status: Chronic (2) HTN (hypertension) Status: Chronic (3) Malignant neoplasm metastatic to liver Status: Acute (4) Neoplasm of lung, upper lobe, malignant Status: Acute (5) Chronic lumbosacral pain Status: Chronic (6) Hx of hepatitis C Status: Chronic (7) Chronic foot pain Status: Chronic (8) Anxiety Status: Chronic (9) Acute bronchitis Status: Acute - Assessment and Plan (Free Text) Plan: Continue Rocephin, Levaquin and rest of Tx.
[2016-06-14] MEDS: Docusate-Senna 50 mg-8.6 mg Tab PO SCH (21:53)
[2016-06-15] MEDS: methylPREDNISolone 40 MG in Sodium Chloride 0.9% 50 ML IVPB SCH ×3 (02:00→16:45)
[2016-06-15] MEDS: Enoxaparin 40 mg Syringe SC SCH (08:52)
[2016-06-15] MEDS: levoFLOXacin 500 mg in D5W 500 MG/100 ML BAG IVPB SCH (08:55)
[2016-06-15] MEDS: Lactobacillus Acidophilus 500 MU Cap PO SCH ×2 (09:02→17:00)
[2016-06-15] MEDS: cefTRIAXone 2 GM in Sodium Chloride 0.9% 100 ML IVPB SCH (10:27)
--- NOTE | 2016-06-15 16:47 | CP.PCM.PN ---
Subjective - Date & Time of Evaluation Date of Evaluation: 06/15/16 - Subjective Subjective: F/U RUL Neoplasm. Pain in the R-L anterior chest wall, L scapular. Objective - Vital Signs/Intake and Output Vital Signs (last 24 hours): Temp Pulse Resp BP Pulse Ox 98.1 F 78 20 116/73 97 06/15/16 07:32 06/15/16 07:32 06/15/16 07:32 06/15/16 07:32 06/15/16 07:32 - Medications Medications: Current Medications Albuterol/Ipratropium (Duoneb 3 Mg/0.5 Mg (3 Ml) Ud) 3 ml INH RQ4 PRN PRN Reason: Shortness of Breath Last Admin: 06/08/16 13:23 Dose: 3 ml Alprazolam (Xanax) 0.5 mg PO Q8 PRN PRN Reason: Anxiety Last Admin: 06/15/16 13:58 Dose: 0.5 mg Docusate Sodium (Colace) 100 mg PO DAILY [facility] Last Admin: 06/15/16 08:52 Dose: 100 mg Duloxetine HCl (Cymbalta) 30 mg PO DAILY [facility] Last Admin: 06/15/16 08:52 Dose: Not Given Enoxaparin Sodium (Lovenox) 40 mg SC DAILY [facility] PRN Reason: Protocol Last Admin: 06/15/16 08:52 Dose: 40 mg Hydromorphone HCl (Dilaudid) 4 mg IVP Q4H PRN PRN Reason: Pain, severe (8-10) Last Admin: 06/15/16 13:58 Dose: 4 mg Methylprednisolone 40 mg/ (Sodium Chloride) 50 mls @ 100 mls/hr IVPB Q8 [facility] Last Admin: 06/15/16 16:45 Dose: 100 mls/hr Levofloxacin/Dextrose (Levaquin 500mg) 500 mg in 100 mls @ 100 mls/hr IVPB DAILY [facility] Last Admin: 06/15/16 08:55 Dose: 100 mls/hr Ceftriaxone Sodium 2 gm/ (Sodium Chloride) 100 mls @ 100 mls/hr IVPB DAILY [facility] Last Admin: 06/15/16 10:27 Dose: 100 mls/hr Lactobacillus Acidophilus (Bacid Acidophilus) 1 cap PO BID [facility] Last Admin: 06/15/16 09:02 Dose: 1 cap Lactulose (Enulose) 20 gm PO DAILY [facility]N PRN Reason: Constipation Pregabalin (Lyrica) 100 mg PO Q8 [facility] Last Admin: 06/15/16 16:45 Dose: 100 mg Promethazine HCl/Codeine (Phenergan/Codeine Oral Syrup) 5 ml PO Q6 PRN PRN Reason: Cough Last Admin: 06/09/16 11:40 Dose: 5 ml Senna/Docusate Sodium (Senokot S 50 Mg-8.6 Mg) 1 tab PO HS [facility] Last Admin: 06/14/16 21:53 Dose: 1 tab - Labs Labs: 06/12/16 05:50 06/12/16 05:50 PT 11.1 SECONDS (9.6-11.2) 06/02/16 12:23 INR 1.07 (0.92-1.08) 06/02/16 12:23 APTT 33.1 SECONDS (23.3-32.5) H 06/02/16 12:23 - Constitutional Appears: No Acute Distress, Chronically Ill - Head Exam Head Exam: NORMAL INSPECTION - Eye Exam Eye Exam: PERRL - ENT Exam ENT Exam: Normal Oropharynx - Neck Exam Neck Exam: Normal Inspection - Respiratory Exam Respiratory Exam: Decreased Breath Sounds (RUL), Rhonchi (scattered), Wheezes ( scattered) Additional comments: Tenderness L-R upper anterior chest wall, L scapular. - Cardiovascular Exam Cardiovascular Exam: REGULAR RHYTHM - GI/Abdominal Exam GI & Abdominal Exam: Soft, Normal Bowel Sounds - Extremities Exam Extremities Exam: Normal Inspection - Back Exam Back Exam: tenderness - Neurological Exam Neurological Exam: Alert, Oriented x3. absent: Motor Sensory Deficit - Psychiatric Exam Psychiatric exam: Anxious - Skin Skin Exam: Warm Assessment and Plan (1) CAD (coronary artery disease) Status: Chronic (2) HTN (hypertension) Status: Chronic (3) Malignant neoplasm metastatic to liver Status: Acute (4) Neoplasm of lung, upper lobe, malignant Status: Acute (5) Chronic lumbosacral pain Status: Chronic (6) Hx of hepatitis C Status: Chronic (7) Chronic foot pain Status: Chronic (8) Anxiety Status: Chronic (9) Acute bronchitis Status: Acute - Assessment and Plan (Free Text) Plan: Continue Levaquin, Rocephin, Dilaudid, Solumedrol and rest of Tx.
[2016-06-15] MEDS: Docusate-Senna 50 mg-8.6 mg Tab PO SCH (22:27)
[2016-06-16] MEDS: methylPREDNISolone 40 MG in Sodium Chloride 0.9% 50 ML IVPB SCH ×3 (00:38→17:47)
[2016-06-16] MEDS: Lactobacillus Acidophilus 500 MU Cap PO SCH ×2 (08:43→17:45)
[2016-06-16] MEDS: Enoxaparin 40 mg Syringe SC SCH (08:44)
[2016-06-16] MEDS: levoFLOXacin 500 mg in D5W 500 MG/100 ML BAG IVPB SCH (08:45)
[2016-06-16] MEDS: cefTRIAXone 2 GM in Sodium Chloride 0.9% 100 ML IVPB SCH (08:46)
--- NOTE | 2016-06-16 09:29 | CP.PCM.PN ---
Subjective - Date & Time of Evaluation Date of Evaluation: 06/16/16 Time of Evaluation: 09:25 - Subjective Subjective: Pt is feeling better as far as his breathing and cough goes, no more hemoptysis. He still c/o chest pain and needs the dilaudid q 4 hrs.He is due for the next chemo next wek Objective - Vital Signs/Intake and Output Vital Signs (last 24 hours): Temp Pulse Resp BP Pulse Ox 97.6 F 72 20 118/76 99 06/16/16 07:38 06/16/16 07:38 06/16/16 07:38 06/16/16 07:38 06/16/16 07:38 - Medications Medications: Current Medications Albuterol/Ipratropium (Duoneb 3 Mg/0.5 Mg (3 Ml) Ud) 3 ml INH RQ4 PRN PRN Reason: Shortness of Breath Last Admin: 06/08/16 13:23 Dose: 3 ml Alprazolam (Xanax) 0.5 mg PO Q8 PRN PRN Reason: Anxiety Last Admin: 06/15/16 13:58 Dose: 0.5 mg Docusate Sodium (Colace) 100 mg PO DAILY [facility] Last Admin: 06/16/16 08:44 Dose: 100 mg Duloxetine HCl (Cymbalta) 30 mg PO DAILY [facility] Last Admin: 06/16/16 08:44 Dose: 30 mg Enoxaparin Sodium (Lovenox) 40 mg SC DAILY [facility] PRN Reason: Protocol Last Admin: 06/16/16 08:44 Dose: 40 mg Hydromorphone HCl (Dilaudid) 4 mg IVP Q4H PRN PRN Reason: Pain, severe (8-10) Last Admin: 06/16/16 06:05 Dose: 4 mg Methylprednisolone 40 mg/ (Sodium Chloride) 50 mls @ 100 mls/hr IVPB Q8 [facility] Last Admin: 06/16/16 08:46 Dose: 100 mls/hr Levofloxacin/Dextrose (Levaquin 500mg) 500 mg in 100 mls @ 100 mls/hr IVPB DAILY [facility] Last Admin: 06/16/16 08:45 Dose: 100 mls/hr Ceftriaxone Sodium 2 gm/ (Sodium Chloride) 100 mls @ 100 mls/hr IVPB DAILY [facility] Last Admin: 06/16/16 08:46 Dose: 100 mls/hr Lactobacillus Acidophilus (Bacid Acidophilus) 1 cap PO BID [facility] Last Admin: 06/16/16 08:43 Dose: 1 cap Lactulose (Enulose) 20 gm PO DAILY PRN PRN Reason: Constipation Pregabalin (Lyrica) 100 mg PO Q8 [facility] Last Admin: 06/16/16 08:43 Dose: 100 mg Promethazine HCl/Codeine (Phenergan/Codeine Oral Syrup) 5 ml PO Q6 PRN PRN Reason: Cough Last Admin: 06/09/16 11:40 Dose: 5 ml Senna/Docusate Sodium (Senokot S 50 Mg-8.6 Mg) 1 tab PO HS [facility] Last Admin: 06/15/16 22:27 Dose: 1 tab - Labs Labs: 06/12/16 05:50 06/12/16 05:50 PT 11.1 SECONDS (9.6-11.2) 06/02/16 12:23 INR 1.07 (0.92-1.08) 06/02/16 12:23 APTT 33.1 SECONDS (23.3-32.5) H 06/02/16 12:23
[2016-06-16] MEDS: Sodium Chloride 0.9% 1,000 ML IV SCH ×2 (10:00→23:41)
[2016-06-16 10:37] LABS: BASO % 0.2 % (0.0-2.0); EOS % 0.2 % (0.0-4.0); HEMATOCRIT 29.7 % (35.0-51.0); LYMPH # 0.8 K/uL (1.0-4.3); LYMPH % 17.7 % (20.0-40.0); MEAN CELL VOLUME 80.8 fl (80.0-94.0); MEAN CORPUSCULAR HEMOGLOBIN 27.9 pg (27.0-31.0); MEAN CORPUSCULAR HGB CONC 34.5 g/dL (33.0-37.0); MONO % 0.3 % (0.0-10.0); NEUT # 3.5 K/uL (1.8-7.0); NEUT % 81.6 % (50.0-75.0); NRBC % 1.2 % (0.0-0.0); RED CELL DISTRIBUTION WIDTH 14.1 % (11.5-14.5); WHITE BLOOD COUNT 4.3 K/uL (4.8-10.8)
[2016-06-16 10:57] LABS: CHLORIDE 97 mmol/L (98-107); SODIUM 136 mmol/l (132-148)
[2016-06-16 10:58] LABS: POTASSIUM 3.9 MMOL/L (3.6-5.0)
[2016-06-16 11:00] LABS: ALB/GLOB RATIO 1.3 (1.0-2.1); ALKALINE PHOSPHATASE 89 U/L (38-126); ALT/SGPT 31 U/L (21-72); AST/SGOT 26 U/L (17-59); BILIRUBIN,TOTAL 0.4 mg/dl (0.2-1.3); BLOOD UREA NITROGEN 25 mg/dl (9-20); CARBON DIOXIDE 29 mmol/L (22-30); GFR AFRICAN-AMERICAN > 60; GLUCOSE,RANDOM 149 mg/dL (75-110); TOTAL PROTEIN 5.9 G/DL (6.3-8.2)
[2016-06-16 11:01] LABS: CALCIUM 8.3 mg/dL (8.4-10.2)
--- NOTE | 2016-06-16 16:16 | CP.PCM.PN ---
Subjective - Date & Time of Evaluation Date of Evaluation: 06/16/16 Time of Evaluation: 13:20 - Subjective Subjective: F/U RUL Neoplasm No cough, no SOB, pain R-L anterior chest wall pain, L scapular. Objective - Vital Signs/Intake and Output Vital Signs (last 24 hours): Temp Pulse Resp BP Pulse Ox 97.6 F 72 20 118/76 99 06/16/16 07:38 06/16/16 07:38 06/16/16 07:38 06/16/16 07:38 06/16/16 07:38 - Medications Medications: Current Medications Albuterol/Ipratropium (Duoneb 3 Mg/0.5 Mg (3 Ml) Ud) 3 ml INH RQ4 PRN PRN Reason: Shortness of Breath Last Admin: 06/08/16 13:23 Dose: 3 ml Alprazolam (Xanax) 0.5 mg PO Q8 PRN PRN Reason: Anxiety Last Admin: 06/15/16 13:58 Dose: 0.5 mg Docusate Sodium (Colace) 100 mg PO DAILY [facility] Last Admin: 06/16/16 08:44 Dose: 100 mg Duloxetine HCl (Cymbalta) 30 mg PO DAILY [facility] Last Admin: 06/16/16 08:44 Dose: 30 mg Enoxaparin Sodium (Lovenox) 40 mg SC DAILY [facility] PRN Reason: Protocol Fentanyl (Duragesic) 1 patch TD Q3D [facility] PRN Reason: Protocol Last Admin: 06/16/16 14:51 Dose: 1 patch Hydromorphone HCl (Dilaudid) 4 mg IVP Q4H PRN PRN Reason: Pain, severe (8-10) Last Admin: 06/16/16 14:44 Dose: 4 mg Methylprednisolone 40 mg/ (Sodium Chloride) 50 mls @ 100 mls/hr IVPB Q8 [facility] Last Admin: 06/16/16 08:46 Dose: 100 mls/hr Levofloxacin/Dextrose (Levaquin 500mg) 500 mg in 100 mls @ 100 mls/hr IVPB DAILY [facility] Last Admin: 06/16/16 08:45 Dose: 100 mls/hr Ceftriaxone Sodium 2 gm/ (Sodium Chloride) 100 mls @ 100 mls/hr IVPB DAILY [facility] Last Admin: 06/16/16 08:46 Dose: 100 mls/hr Sodium Chloride (Sodium Chloride 0.9%) 1,000 mls @ 80 mls/hr IV .[id number] [facility] Stop: 06/17/16 09:29 Last Admin: 06/16/16 10:00 Dose: 80 mls/hr Lactobacillus Acidophilus (Bacid Acidophilus) 1 cap PO BID [facility] Last Admin: 06/16/16 08:43 Dose: 1 cap Lactulose (Enulose) 20 gm PO DAILY PRN PRN Reason: Constipation Pregabalin (Lyrica) 100 mg PO Q8 [facility] Last Admin: 06/16/16 08:43 Dose: 100 mg Promethazine HCl/Codeine (Phenergan/Codeine Oral Syrup) 5 ml PO Q6 PRN PRN Reason: Cough Last Admin: 06/09/16 11:40 Dose: 5 ml Senna/Docusate Sodium (Senokot S 50 Mg-8.6 Mg) 1 tab PO HS [facility] Last Admin: 06/15/16 22:27 Dose: 1 tab - Labs Labs: 06/16/16 10:29 06/16/16 10:29 PT 11.1 SECONDS (9.6-11.2) 06/02/16 12:23 INR 1.07 (0.92-1.08) 06/02/16 12:23 APTT 33.1 SECONDS (23.3-32.5) H 06/02/16 12:23 - Constitutional Appears: No Acute Distress, Chronically Ill - Head Exam Head Exam: NORMAL INSPECTION - Eye Exam Eye Exam: PERRL - ENT Exam ENT Exam: Normal Oropharynx - Respiratory Exam Respiratory Exam: Decreased Breath Sounds (RUL), Rhonchi (few at bases) Additional comments: Tenderness L-R upper anterior chest wall, L scapular - Cardiovascular Exam Cardiovascular Exam: REGULAR RHYTHM - GI/Abdominal Exam GI & Abdominal Exam: Soft, Normal Bowel Sounds - Extremities Exam Extremities Exam: Normal Inspection - Back Exam Back Exam: tenderness - Neurological Exam Neurological Exam: Alert, Oriented x3. absent: Motor Sensory Deficit - Psychiatric Exam Psychiatric exam: Anxious - Skin Skin Exam: Warm Assessment and Plan (1) CAD (coronary artery disease) Status: Chronic (2) HTN (hypertension) Status: Chronic (3) Malignant neoplasm metastatic to liver Status: Acute (4) Neoplasm of lung, upper lobe, malignant Status: Acute (5) Chronic lumbosacral pain Status: Chronic (6) Hx of hepatitis C Status: Chronic (7) Chronic foot pain Status: Chronic (8) Anxiety Status: Chronic (9) Acute bronchitis Status: Acute - Assessment and Plan (Free Text) Plan: Rocephin, Levaquin, Solumedrol, Duragesic patch and rest of Tx.
[2016-06-16] MEDS: Docusate-Senna 50 mg-8.6 mg Tab PO SCH (22:28)
[2016-06-17] MEDS: methylPREDNISolone 40 MG in Sodium Chloride 0.9% 50 ML IVPB SCH ×3 (00:05→16:21)
[2016-06-17] MEDS: Lactobacillus Acidophilus 500 MU Cap PO SCH ×2 (08:54→16:20)
[2016-06-17] MEDS: levoFLOXacin 500 mg in D5W 500 MG/100 ML BAG IVPB SCH (08:55)
[2016-06-17] MEDS ORDERED: Enoxaparin 40 mg Syringe SC SCH (09:00)
[2016-06-17] MEDS: cefTRIAXone 2 GM in Sodium Chloride 0.9% 100 ML IVPB SCH (10:08)
--- NOTE | 2016-06-17 10:25 | CP.PCM.PN ---
Subjective - Date & Time of Evaluation Date of Evaluation: 06/17/16 Time of Evaluation: 10:23 - Subjective Subjective: Pt is feeling better, and his last chest CT showed decrease is mediastinal mass , but the hilar nodes seem to be the same. He still c/o chest painand takes a fair amount of pain medicine. Objective - Vital Signs/Intake and Output Vital Signs (last 24 hours): Temp Pulse Resp BP Pulse Ox 97.9 F 74 20 127/68 96 06/17/16 08:27 06/17/16 08:27 06/17/16 08:27 06/17/16 08:27 06/17/16 08:27 - Medications Medications: Current Medications Albuterol/Ipratropium (Duoneb 3 Mg/0.5 Mg (3 Ml) Ud) 3 ml INH RQ4 PRN PRN Reason: Shortness of Breath Last Admin: 06/08/16 13:23 Dose: 3 ml Alprazolam (Xanax) 0.5 mg PO Q8 PRN PRN Reason: Anxiety Last Admin: 06/16/16 22:30 Dose: 0.5 mg Docusate Sodium (Colace) 100 mg PO DAILY [facility] Last Admin: 06/17/16 08:54 Dose: 100 mg Duloxetine HCl (Cymbalta) 30 mg PO DAILY [facility] Last Admin: 06/17/16 09:01 Dose: Not Given Enoxaparin Sodium (Lovenox) 40 mg SC DAILY [facility] PRN Reason: Protocol Last Admin: 06/17/16 08:55 Dose: 40 mg Fentanyl (Duragesic) 1 patch TD Q3D [facility] PRN Reason: Protocol Last Admin: 06/16/16 14:51 Dose: 1 patch Hydromorphone HCl (Dilaudid) 4 mg IVP Q4H PRN PRN Reason: Pain, severe (8-10) Last Admin: 06/17/16 07:26 Dose: 4 mg Methylprednisolone 40 mg/ (Sodium Chloride) 50 mls @ 100 mls/hr IVPB Q8 [facility] Last Admin: 06/17/16 10:09 Dose: 100 mls/hr Levofloxacin/Dextrose (Levaquin 500mg) 500 mg in 100 mls @ 100 mls/hr IVPB DAILY [facility] Last Admin: 06/17/16 08:55 Dose: 100 mls/hr Ceftriaxone Sodium 2 gm/ (Sodium Chloride) 100 mls @ 100 mls/hr IVPB DAILY [facility] Last Admin: 06/17/16 10:08 Dose: 100 mls/hr Lactobacillus Acidophilus (Bacid Acidophilus) 1 cap PO BID [facility] Last Admin: 06/17/16 08:54 Dose: 1 cap Lactulose (Enulose) 20 gm PO DAILY PRN PRN Reason: Constipation Pregabalin (Lyrica) 100 mg PO Q8 [facility] Last Admin: 06/17/16 08:54 Dose: 100 mg Promethazine HCl/Codeine (Phenergan/Codeine Oral Syrup) 5 ml PO Q6 PRN PRN Reason: Cough Last Admin: 06/09/16 11:40 Dose: 5 ml Senna/Docusate Sodium (Senokot S 50 Mg-8.6 Mg) 1 tab PO HS [facility] Last Admin: 06/16/16 22:28 Dose: 1 tab - Labs Labs: 06/16/16 10:29 06/16/16 10:29 PT 11.1 SECONDS (9.6-11.2) 06/02/16 12:23 INR 1.07 (0.92-1.08) 06/02/16 12:23 APTT 33.1 SECONDS (23.3-32.5) H 06/02/16 12:23
--- NOTE | 2016-06-17 14:18 | CP.PCM.PN ---
Subjective - Date & Time of Evaluation Date of Evaluation: 06/17/16 Time of Evaluation: 12:00 - Subjective Subjective: F/U RUL Neoplasm. No cough, no SOB, no GARRETT, c/o of pain in R-L anterior chest wall, L scapular. Objective - Vital Signs/Intake and Output Vital Signs (last 24 hours): Temp Pulse Resp BP Pulse Ox 97.9 F 74 20 127/68 96 06/17/16 08:27 06/17/16 08:27 06/17/16 08:27 06/17/16 08:27 06/17/16 08:27 - Medications Medications: Current Medications Albuterol/Ipratropium (Duoneb 3 Mg/0.5 Mg (3 Ml) Ud) 3 ml INH RQ4 PRN PRN Reason: Shortness of Breath Last Admin: 06/08/16 13:23 Dose: 3 ml Alprazolam (Xanax) 0.5 mg PO Q8 PRN PRN Reason: Anxiety Last Admin: 06/16/16 22:30 Dose: 0.5 mg Docusate Sodium (Colace) 100 mg PO DAILY [facility] Last Admin: 06/17/16 08:54 Dose: 100 mg Duloxetine HCl (Cymbalta) 30 mg PO DAILY [facility] Last Admin: 06/17/16 09:01 Dose: Not Given Enoxaparin Sodium (Lovenox) 40 mg SC DAILY [facility] PRN Reason: Protocol Last Admin: 06/17/16 08:55 Dose: 40 mg Fentanyl (Duragesic) 1 patch TD Q3D [facility] PRN Reason: Protocol Last Admin: 06/16/16 14:51 Dose: 1 patch Hydromorphone HCl (Dilaudid) 4 mg PO Q4 PRN PRN Reason: Pain, severe (8-10) Methylprednisolone 40 mg/ (Sodium Chloride) 50 mls @ 100 mls/hr IVPB Q8 [facility] Last Admin: 06/17/16 10:09 Dose: 100 mls/hr Ceftriaxone Sodium 2 gm/ (Sodium Chloride) 100 mls @ 100 mls/hr IVPB DAILY [facility] Last Admin: 06/17/16 10:08 Dose: 100 mls/hr Lactobacillus Acidophilus (Bacid Acidophilus) 1 cap PO BID [facility] Last Admin: 06/17/16 08:54 Dose: 1 cap Lactulose (Enulose) 20 gm PO DAILY [facility]N PRN Reason: Constipation Methadone HCl (Methadone) 10 mg PO Q8 [facility] Pregabalin (Lyrica) 100 mg PO Q8 [facility] Last Admin: 06/17/16 08:54 Dose: 100 mg Promethazine HCl/Codeine (Phenergan/Codeine Oral Syrup) 5 ml PO Q6 PRN PRN Reason: Cough Last Admin: 06/09/16 11:40 Dose: 5 ml Senna/Docusate Sodium (Senokot S 50 Mg-8.6 Mg) 1 tab PO HS [facility] Last Admin: 06/16/16 22:28 Dose: 1 tab - Labs Labs: 06/16/16 10:29 06/16/16 10:29 PT 11.1 SECONDS (9.6-11.2) 06/02/16 12:23 INR 1.07 (0.92-1.08) 06/02/16 12:23 APTT 33.1 SECONDS (23.3-32.5) H 06/02/16 12:23 - Constitutional Appears: No Acute Distress, Chronically Ill - Head Exam Head Exam: NORMAL INSPECTION - Eye Exam Eye Exam: PERRL - ENT Exam ENT Exam: Normal Oropharynx - Neck Exam Neck Exam: Normal Inspection - Respiratory Exam Respiratory Exam: Decreased Breath Sounds (RUL) Additional comments: Tenderness L-R upper anterior chest wall and L scapular. - Cardiovascular Exam Cardiovascular Exam: REGULAR RHYTHM - GI/Abdominal Exam GI & Abdominal Exam: Soft, Normal Bowel Sounds - Extremities Exam Extremities Exam: Normal Inspection - Back Exam Back Exam: tenderness - Neurological Exam Neurological Exam: Alert, Oriented x3. absent: Motor Sensory Deficit - Psychiatric Exam Psychiatric exam: Anxious - Skin Skin Exam: Warm Assessment and Plan (1) CAD (coronary artery disease) Status: Chronic (2) HTN (hypertension) Status: Chronic (3) Malignant neoplasm metastatic to liver Status: Acute (4) Neoplasm of lung, upper lobe, malignant Status: Acute (5) Chronic lumbosacral pain Status: Chronic (6) Hx of hepatitis C Status: Chronic (7) Chronic foot pain Status: Chronic (8) Anxiety Status: Chronic (9) Acute bronchitis Status: Acute - Assessment and Plan (Free Text) Plan: Begins Methadone, DC Levaquin 2nd to AE with Methadone, continue Rocephin, Solumedrol and rest of Tx.
[2016-06-17] MEDS: Docusate-Senna 50 mg-8.6 mg Tab PO SCH (21:36)
[2016-06-18] MEDS: methylPREDNISolone 40 MG in Sodium Chloride 0.9% 50 ML IVPB SCH ×2 (02:04→08:26)
[2016-06-18] MEDS: Lactobacillus Acidophilus 500 MU Cap PO SCH (08:24)
[2016-06-18] MEDS: cefTRIAXone 2 GM in Sodium Chloride 0.9% 100 ML IVPB SCH (08:25)
[2016-06-18 08:28] VITALS: BP 121/76; PULSE 75; RESP 18; TEMP 97.9; O2SAT 99
[2016-06-18] MEDS: Promethazine/Cod 6.25mg-10mg/5ml Syr UD PO PRN (08:34)
[2016-06-18 10:01] LABS: HEMATOCRIT 28.4 % (35.0-51.0); MEAN CELL VOLUME 82.3 fl (80.0-94.0); MEAN CORPUSCULAR HEMOGLOBIN 27.8 pg (27.0-31.0); MEAN CORPUSCULAR HGB CONC 33.8 g/dL (33.0-37.0); RED CELL DISTRIBUTION WIDTH 14.2 % (11.5-14.5)
[2016-06-18 10:05] LABS: WHITE BLOOD COUNT 9.6 K/uL (4.8-10.8)
[2016-06-18 10:18] LABS: BLOOD UREA NITROGEN 23 mg/dl (9-20); CALCIUM 8.4 mg/dL (8.4-10.2); CARBON DIOXIDE 30 mmol/L (22-30); CHLORIDE 97 mmol/L (98-107); GFR AFRICAN-AMERICAN > 60; GLUCOSE,RANDOM 152 mg/dL (75-110); SODIUM 135 mmol/l (132-148)
--- NOTE | 2016-06-18 13:32 | CP.PCM.PN ---
Subjective - Date & Time of Evaluation Date of Evaluation: 06/18/16 Time of Evaluation: 08:00 - Subjective Subjective: events noted iv rx adjusted Objective - Vital Signs/Intake and Output Vital Signs (last 24 hours): Temp Pulse Resp BP Pulse Ox 97.9 F 75 18 121/76 99 06/18/16 08:28 06/18/16 08:28 06/18/16 08:28 06/18/16 08:28 06/18/16 08:28 - Medications Medications: Current Medications Albuterol/Ipratropium (Duoneb 3 Mg/0.5 Mg (3 Ml) Ud) 3 ml INH RQ4 PRN PRN Reason: Shortness of Breath Last Admin: 06/08/16 13:23 Dose: 3 ml Alprazolam (Xanax) 0.5 mg PO Q8 PRN PRN Reason: Anxiety Last Admin: 06/18/16 02:08 Dose: 0.5 mg Docusate Sodium (Colace) 100 mg PO DAILY [facility] Last Admin: 06/18/16 08:24 Dose: 100 mg Duloxetine HCl (Cymbalta) 30 mg PO DAILY [facility] Last Admin: 06/18/16 08:25 Dose: Not Given Enoxaparin Sodium (Lovenox) 40 mg SC DAILY [facility] PRN Reason: Protocol Last Admin: 06/17/16 08:55 Dose: 40 mg Fentanyl (Duragesic) 1 patch TD Q3D [facility] PRN Reason: Protocol Last Admin: 06/16/16 14:51 Dose: 1 patch Hydromorphone HCl (Dilaudid) 4 mg PO Q4 PRN PRN Reason: Pain, severe (8-10) Last Admin: 06/18/16 12:42 Dose: 4 mg Methylprednisolone 40 mg/ (Sodium Chloride) 50 mls @ 100 mls/hr IVPB Q8 [facility] Last Admin: 06/18/16 08:26 Dose: 100 mls/hr Ceftriaxone Sodium 2 gm/ (Sodium Chloride) 100 mls @ 100 mls/hr IVPB DAILY [facility] Last Admin: 06/18/16 08:25 Dose: 100 mls/hr Lactobacillus Acidophilus (Bacid Acidophilus) 1 cap PO BID [facility] Last Admin: 06/18/16 08:24 Dose: 1 cap Lactulose (Enulose) 20 gm PO DAILY PRN PRN Reason: Constipation Methadone HCl (Methadone) 10 mg PO Q8 [facility] Last Admin: 06/18/16 09:41 Dose: 10 mg Pregabalin (Lyrica) 100 mg PO Q8 [facility] Last Admin: 06/18/16 08:25 Dose: 100 mg Promethazine HCl/Codeine (Phenergan/Codeine Oral Syrup) 5 ml PO Q6 PRN PRN Reason: Cough Last Admin: 06/18/16 08:34 Dose: 5 ml Senna/Docusate Sodium (Senokot S 50 Mg-8.6 Mg) 1 tab PO HS [facility] Last Admin: 06/17/16 21:36 Dose: 1 tab - Labs Labs: 06/18/16 08:33 06/18/16 09:40 PT 11.1 SECONDS (9.6-11.2) 06/02/16 12:23 INR 1.07 (0.92-1.08) 06/02/16 12:23 APTT 33.1 SECONDS (23.3-32.5) H 06/02/16 12:23 - Constitutional Appears: Non-toxic, Cachectic, Chronically Ill - Head Exam Head Exam: NORMOCEPHALIC - Eye Exam Eye Exam: PERRL. absent: Scleral icterus - ENT Exam ENT Exam: Mucous Membranes Dry, Normal External Ear Exam - Neck Exam Neck Exam: absent: Lymphadenopathy - Respiratory Exam Respiratory Exam: Decreased Breath Sounds, Rhonchi - Cardiovascular Exam Cardiovascular Exam: REGULAR RHYTHM, +S1, +S2 - GI/Abdominal Exam GI & Abdominal Exam: Distended, Soft. absent: Tenderness - Rectal Exam Rectal Exam: Deferred - Exam Exam: NORMAL INSPECTION Assessment and Plan (1) Acute bronchitis Status: Acute (2) Chest pain Status: Acute (3) Malignant neoplasm metastatic to liver Status: Acute (4) Neoplasm of lung, upper lobe, malignant Status: Acute (5) Anxiety Status: Chronic (6) CAD (coronary artery disease) Status: Chronic
--- NOTE | 2016-06-18 14:58 | CP.PCM.PN ---
Subjective - Date & Time of Evaluation Date of Evaluation: 06/18/16 Time of Evaluation: 11:30 - Subjective Subjective: F/U RUL neoplasm. Cough on and off, scanty yellowish phlegms,no hemoptyxis. Objective - Vital Signs/Intake and Output Vital Signs (last 24 hours): Temp Pulse Resp BP Pulse Ox 97.9 F 75 18 121/76 99 06/18/16 08:28 06/18/16 08:28 06/18/16 08:28 06/18/16 08:28 06/18/16 08:28 - Labs Labs: 06/18/16 08:33 06/18/16 09:40 PT 11.1 SECONDS (9.6-11.2) 06/02/16 12:23 INR 1.07 (0.92-1.08) 06/02/16 12:23 APTT 33.1 SECONDS (23.3-32.5) H 06/02/16 12:23 - Constitutional Appears: No Acute Distress, Chronically Ill - Head Exam Head Exam: NORMAL INSPECTION - Eye Exam Eye Exam: PERRL - ENT Exam ENT Exam: Normal Oropharynx - Neck Exam Neck Exam: Normal Inspection - Respiratory Exam Respiratory Exam: Decreased Breath Sounds (RUL) Additional comments: Tenderness R-L upper anterior chest wall, L scapular. - Cardiovascular Exam Cardiovascular Exam: REGULAR RHYTHM - GI/Abdominal Exam GI & Abdominal Exam: Soft, Normal Bowel Sounds - Extremities Exam Extremities Exam: Normal Inspection - Back Exam Back Exam: NORMAL INSPECTION - Neurological Exam Neurological Exam: Alert, Oriented x3. absent: Motor Sensory Deficit - Psychiatric Exam Psychiatric exam: Anxious - Skin Skin Exam: Warm Assessment and Plan (1) CAD (coronary artery disease) Status: Chronic (2) HTN (hypertension) Status: Chronic (3) Malignant neoplasm metastatic to liver Status: Acute (4) Neoplasm of lung, upper lobe, malignant Status: Acute (5) Chronic lumbosacral pain Status: Chronic (6) Hx of hepatitis C Status: Chronic (7) Chronic foot pain Status: Chronic (8) Anxiety Status: Chronic (9) Acute bronchitis Status: Acute - Assessment and Plan (Free Text) Plan: Continue Duoneb, Solumedrol, Rocephin, Dilaudid, Methadone and rest of Tx. Transfer to TCU
== END 2016-06-18 14:20 | DRG 166 ==
LOC: H.ER 14:35 → H.ERHOLD 16:52 → UNDOADMOB 16:52 → H.TEL 18:56 → H.ERHOLD 18:56 → OBSVTOIN 05-23 10:41 → H.TEL 05-23 10:41 → INTOOBSV 05-23 10:41 → H.MEDSURG1 05-24 15:01
PROVIDERS: ADMIT Internal Medicine Pulmonary Disease; ATTEND Internal Medicine Pulmonary Disease
PROC: 0BBC8ZX Excision of Right Upper Lung Lobe, Via Natural or Artificial Opening Endoscopic, Diagnostic (ICD-10-PCS; 2016-05-26)
PROC: 0B9C8ZX Drainage of Right Upper Lung Lobe, Via Natural or Artificial Opening Endoscopic, Diagnostic (ICD-10-PCS; 2016-05-26)
PROC: 0BB48ZX Excision of Right Upper Lobe Bronchus, Via Natural or Artificial Opening Endoscopic, Diagnostic (ICD-10-PCS; principal; 2016-05-26 11:00)
PROC: 05HM33Z Insertion of Infusion Device into Right Internal Jugular Vein, Percutaneous Approach (ICD-10-PCS; 2016-06-03)
PROC: 3E03305 Introduction of Other Antineoplastic into Peripheral Vein, Percutaneous Approach (ICD-10-PCS; 2016-06-04)
DX: C34.11 Malignant neoplasm of upper lobe, right bronchus or lung (principal); J18.9 Pneumonia, unspecified organism; C78.7 Secondary malignant neoplasm of liver and intrahepatic bile duct; R04.2 Hemoptysis; G89.29 Other chronic pain; I25.10 Atherosclerotic heart disease of native coronary artery without angina pectoris; Z95.5 Presence of coronary angioplasty implant and graft; E78.00 Pure hypercholesterolemia, unspecified; I10 Essential (primary) hypertension; F17.200 Nicotine dependence, unspecified, uncomplicated; B18.2 Chronic viral hepatitis C; F41.9 Anxiety disorder, unspecified; J20.9 Acute bronchitis, unspecified; R59.1 Generalized enlarged lymph nodes; E78.5 Hyperlipidemia, unspecified

== ENCOUNTER 2016-06-18 13:52 | Inpatient (IN) | payer BC, OTHER ==
[2016-06-18 14:16] VITALS: BMI 27.8
[2016-06-18] MEDS ORDERED: Promethazine/Cod 6.25mg-10mg/5ml Syr UD PO PRN (14:20)
[2016-06-18 15:08] VITALS: RESP 20
[2016-06-18] MEDS: Lactobacillus Acidophilus 500 MU Cap PO SCH (17:12)
[2016-06-18] MEDS: Docusate-Senna 50 mg-8.6 mg Tab PO SCH (22:28)
[2016-06-19] MEDS: Lactobacillus Acidophilus 500 MU Cap PO SCH ×2 (08:31→16:43)
[2016-06-19] MEDS: Enoxaparin 40 mg Syringe SC SCH (08:32)
[2016-06-19] MEDS ORDERED: cefTRIAXone IV 1 gm in Dextros 50 ML BAG IVPB SCH (09:00)
[2016-06-19] MEDS ORDERED: cefTRIAXone 2 GM in Sodium Chloride 0.9% 100 ML IVPB SCH (09:00)
[2016-06-19] MEDS ORDERED: Anusol Suppository PR PRN (13:59)
--- NOTE | 2016-06-19 15:17 | CP.PCM.HP ---
History of Present Illness - History of Present Illness History of Present Illness: 56 y/o M, admitted to [facility] on 05/23/16 c/o of Chest pain, found in CT chest to have a RUL Neoplasm, Mediastinal nodes. CT Abd/Pelv. showed Multiple Liver Metastasis , there after Pt developed PNA. On 06/18/16, Pt medical condition R Hilar mass and mediastinal lymph nodes decreased in size with Chemotherapy , PNA improved and was transferred to [facility] to continue with abx IV. Pt complains of cough with scanty yellowish flegm, and pain R L anterior upper chest wall, R L scapular . Denied: Fever, chills, abdominal pain, n/v/d, no GARRETT , no chest congestion, able to ambulate with no complaint of SOB, c/o of pain in R-L anterior chest wall and scapular area, alleviated when taking Methadone, Dilaudid. Present on Admission - Present on Admission Any Indicators Present on Admission: No Review of Systems - Constitutional Constitutional: Weakness - EENT Eyes: Other (negative) Ears: Other (negative) Nose/Mouth/Throat: Other (negative) - Cardiovascular Cardiovascular: Other (negative) - Respiratory Respiratory: Cough - Gastrointestinal Gastrointestinal: Constipation - Genitourinary Genitourinary: Other (negative) - Musculoskeletal Musculoskeletal: Back Pain, Other (chest wall, Scapular pain.) - Integumentary Integumentary: Other (negative) - Neurological Neurological: Other - Psychiatric Psychiatric: Anxiety - Endocrine Endocrine: Other (negative) - Hematologic/Lymphatic Hematologic: Other (anemia.) Past Patient History - Infectious Disease Hx of Infectious Diseases: None - Past Medical History & Family History Past Medical History?: Yes - Past Social History Smoking Status: Heavy Smoker > 10 Cigarettes Daily Alcohol: Social Drugs: Denies Home Situation {Lives}: Alone - CARDIAC Hx Cardiac Disorders: Yes Hx Hypercholesterolemia: Yes Hx Hypertension: Yes - PULMONARY Hx Respiratory Disorders: Yes Hx Bronchitis: Yes Other/Comment: current smoker - NEUROLOGICAL Hx Neurological Disorder: No - HEENT Hx HEENT Problems: No - RENAL Hx Chronic Kidney Disease: No - ENDOCRINE/METABOLIC Hx Endocrine Disorders: No - HEMATOLOGICAL/ONCOLOGICAL Hx Blood Disorders: Yes Hx Hepatitis C: Yes - INTEGUMENTARY Hx Dermatological Problems: No - MUSCULOSKELETAL/RHEUMATOLOGICAL Hx Musculoskeletal Disorders: Yes (L foot pain s/p ORIF 2nd to Fx.) Hx Back Pain: Yes Hx Falls: Yes - GASTROINTESTINAL Hx Gastrointestinal Disorders: No - GENITOURINARY/GYNECOLOGICAL Hx Genitourinary Disorders: No - PSYCHIATRIC Hx Psychophysiologic Disorder: Yes Hx Anxiety: Yes Hx Substance Use: No (denies) - SURGICAL HISTORY Hx Surgeries: Yes Hx Coronary Stent: Yes Hx Orthopedic Surgery: Yes (L foot ORIF 2nd to Fx.) - ANESTHESIA Hx Anesthesia: Yes Hx Anesthesia Reactions: No Hx Malignant Hyperthermia: No Has any member of the family had a problem w/ anesthesia?: No Meds Allergies/Adverse Reactions: Allergies Allergy/AdvReac Type Severity Reaction Status Date / Time No Known Allergies Allergy Verified 04/22/14 11:33 Physical Exam - Constitutional Appears: No Acute Distress, Chronically Ill - Head Exam Head Exam: NORMAL INSPECTION - Eye Exam Eye Exam: PERRL - ENT Exam ENT Exam: Normal Oropharynx - Neck Exam Neck exam: Positive for: Normal Inspection - Respiratory Exam Respiratory Exam: Decreased Breath Sounds (RUL) Additional comments: Tenderness R-L anterior chest wall, R-L scapular area - Cardiovascular Exam Cardiovascular Exam: REGULAR RHYTHM - GI/Abdominal Exam GI & Abdominal Exam: Normal Bowel Sounds, Soft - Extremities Exam Extremities exam: Positive for: normal inspection - Back Exam Back exam: tenderness - Neurological Exam Neurological exam: Alert, Oriented x3 Additional comments: No motor sensory deficit. - Psychiatric Exam Psychiatric exam: Anxious - Skin Skin Exam: Warm Results - Vital Signs Recent Vital Signs: Last Vital Signs Temp 98.1 F 06/19/16 08:03 Pulse 89 06/19/16 08:03 Resp 20 06/19/16 08:03 BP 109/63 06/19/16 08:03 Pulse Ox 99 06/19/16 08:03 reviewed J.P. - Labs Result Diagrams: 06/20/16 10:37 Assessment & Plan (1) PNA (pneumonia) Status: Acute (2) Neoplasm of lung, upper lobe, malignant Status: Acute (3) Malignant neoplasm metastatic to liver Status: Acute Priority: High (4) CAD (coronary artery disease) Status: Chronic Priority: Medium (5) Chronic lumbosacral pain Status: Chronic Priority: High (6) HTN (hypertension) Status: Chronic Priority: Medium (7) Hx of hepatitis C Status: Chronic (8) Chronic foot pain Status: Chronic Priority: High (9) Anxiety Status: Chronic Priority: High - Assessment and Plan (Free Text) Plan: Continue Rocephin 2gm IV, Dilaudid, Methadone, Lyrica, Lovenox, Duoneb, Promethazine with Co, Xanax and rest of Tx. - Date & Time Date: 06/19/16 Time: 12:05
[2016-06-19] MEDS ORDERED: Chlorhexidine Gluconate 1 APPL/PKT TP ONE (15:41)
[2016-06-19] MEDS: cefTRIAXone 2 GM in Sodium Chloride 0.9% 100 ML IVPB SCH (16:44)
[2016-06-19] MEDS: Hydrocortisone 2.5% (Rectal) CREAM PR SCH (17:57)
[2016-06-19] MEDS: Docusate-Senna 50 mg-8.6 mg Tab PO SCH (21:04)
[2016-06-19] MEDS: Promethazine/Cod 6.25mg-10mg/5ml Syr UD PO PRN (22:03)
[2016-06-20] MEDS: Hydrocortisone 2.5% (Rectal) CREAM PR SCH ×3 (08:45→17:31)
[2016-06-20] MEDS: Enoxaparin 40 mg Syringe SC SCH (08:46)
[2016-06-20] MEDS: Lactobacillus Acidophilus 500 MU Cap PO SCH ×2 (08:46→17:30)
[2016-06-20] MEDS: Promethazine/Cod 6.25mg-10mg/5ml Syr UD PO PRN ×2 (10:37→21:22)
[2016-06-20 10:41] LABS: BASO # 0.1 K/uL (0.0-0.2); EOS # 0.1 K/uL (0.0-0.7); EOS % 0.7 % (0.0-4.0); HEMATOCRIT 28.4 % (35.0-51.0); LYMPH # 0.9 K/uL (1.0-4.3); LYMPH % 10.8 % (20.0-40.0); MEAN CELL VOLUME 82.5 fl (80.0-94.0); MEAN CORPUSCULAR HEMOGLOBIN 27.8 pg (27.0-31.0); MEAN CORPUSCULAR HGB CONC 33.7 g/dL (33.0-37.0); MEAN PLATELET VOLUME 7.3 fl (7.2-11.7); MONO # 0.5 K/uL (0.0-0.8); MONO % 6.2 % (0.0-10.0); NEUT # 7.2 K/uL (1.8-7.0); NEUT % 81.3 % (50.0-75.0); NRBC % 0.5 % (0.0-0.0); RED CELL DISTRIBUTION WIDTH 15.2 % (11.5-14.5); WHITE BLOOD COUNT 8.8 K/uL (4.8-10.8)
[2016-06-20] MEDS: cefTRIAXone 2 GM in Sodium Chloride 0.9% 100 ML IVPB SCH (16:48)
--- NOTE | 2016-06-20 17:09 | CP.PCM.PN ---
Subjective - Date & Time of Evaluation Date of Evaluation: 06/20/16 Time of Evaluation: 10:00 - Subjective Subjective: F/U RUL Neoplasm/ PNA Pt with scanty productive cough, pain R-L anterior chest wall, L scapular. Objective - Vital Signs/Intake and Output Vital Signs (last 24 hours): Temp Pulse Resp BP Pulse Ox 99.5 F 100 H 20 115/76 97 06/20/16 16:07 06/20/16 16:07 06/20/16 16:07 06/20/16 16:07 06/20/16 16:07 - Medications Medications: Current Medications Albuterol/Ipratropium (Duoneb 3 Mg/0.5 Mg (3 Ml) Ud) 3 ml INH RQ4 PRN PRN Reason: Shortness of Breath Alprazolam (Xanax) 0.5 mg PO TID PRN PRN Reason: Anxiety Last Admin: 06/19/16 16:43 Dose: 0.5 mg Docusate Sodium (Colace) 100 mg PO DAILY [facility] Last Admin: 06/20/16 08:45 Dose: 100 mg Enoxaparin Sodium (Lovenox) 40 mg SC DAILY [facility] PRN Reason: Protocol Last Admin: 06/20/16 08:46 Dose: 40 mg Fentanyl (Duragesic) 1 patch TD Q3D [facility] PRN Reason: Protocol Last Admin: 06/19/16 17:53 Dose: 1 patch Hydrocortisone (Anusol-Hc) 1 applic RI BID [facility] Last Admin: 06/20/16 09:03 Dose: 1 applic Hydromorphone HCl (Dilaudid) 4 mg PO Q4 PRN PRN Reason: Pain, severe (8-10) Last Admin: 06/20/16 13:48 Dose: 4 mg Ceftriaxone Sodium 2 gm/ (Sodium Chloride) 100 mls @ 100 mls/hr IVPB DAILY@ 1700 [facility] Last Admin: 06/20/16 16:48 Dose: 100 mls/hr Lactobacillus Acidophilus (Bacid Acidophilus) 1 cap PO BID [facility] Last Admin: 06/20/16 08:46 Dose: 1 cap Lactulose (Enulose) 20 gm PO DAILY PRN PRN Reason: Constipation Methadone HCl (Methadone) 10 mg PO Q8 [facility] Last Admin: 06/20/16 08:44 Dose: 10 mg Pregabalin (Lyrica) 100 mg PO Q8 [facility] Last Admin: 06/20/16 09:18 Dose: 100 mg Promethazine HCl/Codeine (Phenergan/Codeine Oral Syrup) 5 ml PO Q6 PRN PRN Reason: Cough Promethazine HCl/Codeine (Phenergan/Codeine Oral Syrup) 10 ml PO Q6 PRN PRN Reason: Cough Last Admin: 06/20/16 10:37 Dose: 10 ml Senna/Docusate Sodium (Senokot S 50 Mg-8.6 Mg) 1 tab PO HS [facility] Last Admin: 06/19/16 21:04 Dose: 1 tab - Labs Labs: 06/20/16 10:37 - Constitutional Appears: No Acute Distress, Chronically Ill - Head Exam Head Exam: NORMAL INSPECTION - Eye Exam Eye Exam: PERRL - ENT Exam ENT Exam: Normal Oropharynx - Neck Exam Neck Exam: Normal Inspection - Respiratory Exam Respiratory Exam: Decreased Breath Sounds (RUL) Additional comments: Tenderness R-L anterior chest wall, L scapular. - Cardiovascular Exam Cardiovascular Exam: REGULAR RHYTHM - GI/Abdominal Exam GI & Abdominal Exam: Soft, Normal Bowel Sounds - Extremities Exam Extremities Exam: Normal Inspection - Back Exam Back Exam: NORMAL INSPECTION - Neurological Exam Neurological Exam: Alert, Oriented x3. absent: Motor Sensory Deficit - Psychiatric Exam Psychiatric exam: Anxious - Skin Skin Exam: Warm Assessment and Plan (1) PNA (pneumonia) Status: Acute (2) Neoplasm of lung, upper lobe, malignant Status: Acute (3) Malignant neoplasm metastatic to liver Status: Acute (4) CAD (coronary artery disease) Status: Chronic (5) Chronic lumbosacral pain Status: Chronic (6) HTN (hypertension) Status: Chronic (7) Hx of hepatitis C Status: Chronic (8) Chronic foot pain Status: Chronic (9) Anxiety Status: Chronic - Assessment and Plan (Free Text) Plan: Continue Solumedrol, Rocephin, Dilaudid, Methadone and rest of Tx.
[2016-06-20] MEDS: Docusate-Senna 50 mg-8.6 mg Tab PO SCH (21:17)
[2016-06-21] MEDS: Lactobacillus Acidophilus 500 MU Cap PO SCH ×2 (08:49→17:18)
[2016-06-21] MEDS: Enoxaparin 40 mg Syringe SC SCH (08:50)
[2016-06-21] MEDS: Albuterol-Ipratrop 3 mg / 0.5 (3 ml) UD INH PRN (11:59)
[2016-06-21] MEDS ORDERED: Hydrocortisone 2.5% (Rectal) CREAM PR PRN (15:41)
[2016-06-21] MEDS ORDERED: Sodium Chloride 3% for Inhalation 4 ML VIAL.NEB IH PRN (17:21)
[2016-06-21] MEDS: cefTRIAXone 2 GM in Sodium Chloride 0.9% 100 ML IVPB SCH (17:21)
[2016-06-21] MEDS: Hydrocortisone 2.5% (Rectal) CREAM PR SCH (17:27)
--- NOTE | 2016-06-21 18:50 | CP.PCM.PN ---
Subjective - Date & Time of Evaluation Date of Evaluation: 06/21/16 Time of Evaluation: 16:00 - Subjective Subjective: F/U PNA, PUL Neoplasm. Increased cough with productive yellowish phlegms, chest congestion, pain in R- L anterior chest wall, L scapular increased with cough. Objective - Vital Signs/Intake and Output Vital Signs (last 24 hours): Temp Pulse Resp BP Pulse Ox 97.3 F L 85 20 103/50 L 99 06/21/16 16:32 06/21/16 16:32 06/21/16 16:32 06/21/16 16:32 06/21/16 16:32 - Medications Medications: Current Medications Albuterol/Ipratropium (Duoneb 3 Mg/0.5 Mg (3 Ml) Ud) 3 ml INH RQ4 PRN PRN Reason: Shortness of Breath Last Admin: 06/21/16 11:59 Dose: 3 ml Alprazolam (Xanax) 0.5 mg PO TID PRN PRN Reason: Anxiety Last Admin: 06/20/16 21:18 Dose: 0.5 mg Docusate Sodium (Colace) 100 mg PO DAILY [facility] Last Admin: 06/21/16 08:51 Dose: 100 mg Enoxaparin Sodium (Lovenox) 40 mg SC DAILY [facility] PRN Reason: Protocol Last Admin: 06/21/16 08:50 Dose: 40 mg Fentanyl (Duragesic) 1 patch TD Q3D [facility] PRN Reason: Protocol Last Admin: 06/19/16 17:53 Dose: 1 patch Hydrocortisone (Anusol-Hc) 1 applic [place] BID PRN PRN Reason: hemoroids pain Hydromorphone HCl (Dilaudid) 4 mg PO Q4 PRN PRN Reason: Pain, severe (8-10) Last Admin: 06/21/16 15:22 Dose: 4 mg Ceftriaxone Sodium 2 gm/ (Sodium Chloride) 100 mls @ 100 mls/hr IVPB DAILY@ 1700 [facility] Last Admin: 06/21/16 17:21 Dose: 100 mls/hr Lactobacillus Acidophilus (Bacid Acidophilus) 1 cap PO BID [facility] Last Admin: 06/21/16 17:18 Dose: 1 cap Lactulose (Enulose) 20 gm PO DAILY PRN PRN Reason: Constipation Methadone HCl (Methadone) 10 mg PO Q8 [facility] Last Admin: 06/21/16 17:18 Dose: 10 mg Pregabalin (Lyrica) 100 mg PO Q8 [facility] Last Admin: 06/21/16 17:18 Dose: 100 mg Promethazine HCl/Codeine (Phenergan/Codeine Oral Syrup) 10 ml PO Q6 PRN PRN Reason: Cough Last Admin: 06/20/16 21:22 Dose: 10 ml Senna/Docusate Sodium (Senokot S 50 Mg-8.6 Mg) 1 tab PO HS [facility] Last Admin: 06/20/16 21:17 Dose: 1 tab - Labs Labs: 06/20/16 10:37 - Constitutional Appears: No Acute Distress, Chronically Ill - Head Exam Head Exam: NORMAL INSPECTION - Eye Exam Eye Exam: PERRL - ENT Exam ENT Exam: Normal Oropharynx - Neck Exam Neck Exam: Normal Inspection - Respiratory Exam Respiratory Exam: Decreased Breath Sounds (at bases), Rhonchi (b/l), Wheezes Additional comments: tenderness R-L anterior chest wall, L scapular - Cardiovascular Exam Cardiovascular Exam: REGULAR RHYTHM - GI/Abdominal Exam GI & Abdominal Exam: Soft, Normal Bowel Sounds - Extremities Exam Extremities Exam: Normal Inspection - Back Exam Back Exam: NORMAL INSPECTION - Neurological Exam Neurological Exam: Alert, Oriented x3. absent: Motor Sensory Deficit - Psychiatric Exam Psychiatric exam: Anxious - Skin Skin Exam: Warm Assessment and Plan (1) PNA (pneumonia) Status: Acute (2) Neoplasm of lung, upper lobe, malignant Status: Acute (3) Malignant neoplasm metastatic to liver Status: Acute (4) CAD (coronary artery disease) Status: Chronic (5) Chronic lumbosacral pain Status: Chronic (6) HTN (hypertension) Status: Chronic (7) Hx of hepatitis C Status: Chronic (8) Chronic foot pain Status: Chronic (9) Anxiety Status: Chronic - Assessment and Plan (Free Text) Plan: Pt with worsening cough and bronchospasm. Repeat sputum C-S, CXR PA & Lateral, continue Rocephin, Duoneb, Methadone, Dilaudid, Phenergan with Co.and rest of Tx.
[2016-06-21] MEDS: Docusate-Senna 50 mg-8.6 mg Tab PO SCH (21:31)
[2016-06-21] MEDS: Promethazine/Cod 6.25mg-10mg/5ml Syr UD PO PRN (21:33)
[2016-06-22] MEDS: Promethazine/Cod 6.25mg-10mg/5ml Syr UD PO PRN (06:30)
[2016-06-22] MEDS: Albuterol-Ipratrop 3 mg / 0.5 (3 ml) UD INH PRN (07:29)
[2016-06-22 07:48] LABS: BASO % 0.5 % (0.0-2.0); EOS # 0.1 K/uL (0.0-0.7); EOS % 1.7 % (0.0-4.0); LYMPH # 0.9 K/uL (1.0-4.3); LYMPH % 17.9 % (20.0-40.0); MEAN CELL VOLUME 84.4 fl (80.0-94.0); MEAN CORPUSCULAR HGB CONC 33.2 g/dL (33.0-37.0); MEAN PLATELET VOLUME 7.8 fl (7.2-11.7); MONO # 0.4 K/uL (0.0-0.8); MONO % 7.9 % (0.0-10.0); NEUT # 3.6 K/uL (1.8-7.0); NRBC % 0.3 % (0.0-0.0); RED CELL DISTRIBUTION WIDTH 14.8 % (11.5-14.5); WHITE BLOOD COUNT 4.9 K/uL (4.8-10.8)
[2016-06-22 08:28] LABS: ALB/GLOB RATIO 1.1 (1.0-2.1); ALKALINE PHOSPHATASE 83 U/L (38-126); ALT/SGPT 29 U/L (21-72); AST/SGOT 26 U/L (17-59); BILIRUBIN,TOTAL 0.3 mg/dl (0.2-1.3); BLOOD UREA NITROGEN 20 mg/dl (9-20); CALCIUM 8.2 mg/dL (8.4-10.2); CARBON DIOXIDE 34 mmol/L (22-30); CHLORIDE 98 mmol/L (98-107); GFR AFRICAN-AMERICAN > 60; GLUCOSE,RANDOM 78 mg/dL (75-110); POTASSIUM 4.2 MMOL/L (3.6-5.0); SODIUM 138 mmol/l (132-148); TOTAL PROTEIN 5.4 G/DL (6.3-8.2)
[2016-06-22] MEDS: Lactobacillus Acidophilus 500 MU Cap PO SCH ×2 (08:41→17:22)
[2016-06-22] MEDS: Enoxaparin 40 mg Syringe SC SCH (08:42)
--- NOTE | 2016-06-22 11:29 | RAD ---
HISTORY: Pneumonia RUL , RUL Ca COMPARISON: 06/09/2013 TECHNIQUE: Chest PA and lateral FINDINGS: LUNGS: There is mild interval decrease in right upper lobe infiltrate in density from prior study. No new left lung infiltrate is seen. Right Port-A-Cath is unchanged. PLEURA: No significant pleural effusion identified. No pneumothorax apparent. CARDIOVASCULAR: Normal. OSSEOUS STRUCTURES: No significant abnormalities. VISUALIZED UPPER ABDOMEN: Normal. OTHER FINDINGS: None. IMPRESSION: Decreased right upper lobe infiltrate and density.
--- NOTE | 2016-06-22 16:35 | CP.PCM.PN ---
Subjective - Date & Time of Evaluation Date of Evaluation: 06/22/16 Time of Evaluation: 14:45 - Subjective Subjective: F/U PNA, RUL Neoplasm. Cough improved . Chest congestion improved , Chest wall and Scapular pain improved Objective - Vital Signs/Intake and Output Vital Signs (last 24 hours): Temp Pulse Resp BP Pulse Ox 98.1 F 97 H 20 124/62 98 06/22/16 16:17 06/22/16 16:17 06/22/16 16:17 06/22/16 16:17 06/22/16 16:17 - Medications Medications: Current Medications Albuterol/Ipratropium (Duoneb 3 Mg/0.5 Mg (3 Ml) Ud) 3 ml INH RQ4 PRN PRN Reason: Shortness of Breath Last Admin: 06/22/16 07:29 Dose: 3 ml Alprazolam (Xanax) 0.5 mg PO TID PRN PRN Reason: Anxiety Last Admin: 06/21/16 23:09 Dose: 0.5 mg Docusate Sodium (Colace) 100 mg PO DAILY [facility] Last Admin: 06/22/16 08:42 Dose: 100 mg Enoxaparin Sodium (Lovenox) 40 mg SC DAILY [facility] PRN Reason: Protocol Last Admin: 06/22/16 08:42 Dose: 40 mg Fentanyl (Duragesic) 1 patch TD Q3D [facility] PRN Reason: Protocol Last Admin: 06/22/16 15:18 Dose: 1 patch Hydrocortisone (Anusol-Hc) 1 applic [place] BID PRN PRN Reason: hemoroids pain Last Admin: 06/22/16 08:41 Dose: 1 applic Hydromorphone HCl (Dilaudid) 4 mg PO Q4 PRN PRN Reason: Pain, severe (8-10) Last Admin: 06/22/16 15:20 Dose: 4 mg Ceftriaxone Sodium 2 gm/ (Sodium Chloride) 100 mls @ 100 mls/hr IVPB DAILY@ 1700 [facility] Last Admin: 06/21/16 17:21 Dose: 100 mls/hr Lactobacillus Acidophilus (Bacid Acidophilus) 1 cap PO BID [facility] Last Admin: 06/22/16 08:41 Dose: 1 cap Lactulose (Enulose) 20 gm PO DAILY PRN PRN Reason: Constipation Methadone HCl (Methadone) 10 mg PO Q8 [facility] Last Admin: 06/22/16 08:42 Dose: 10 mg Pregabalin (Lyrica) 100 mg PO Q8 [facility] Last Admin: 06/22/16 08:42 Dose: 100 mg Promethazine HCl/Codeine (Phenergan/Codeine Oral Syrup) 10 ml PO Q6 PRN PRN Reason: Cough Last Admin: 06/22/16 06:30 Dose: 10 ml Senna/Docusate Sodium (Senokot S 50 Mg-8.6 Mg) 1 tab PO HS [facility] Last Admin: 06/21/16 21:31 Dose: 1 tab - Labs Labs: 06/22/16 07:00 06/22/16 07:00 - Constitutional Appears: No Acute Distress - Head Exam Head Exam: NORMAL INSPECTION - Eye Exam Eye Exam: PERRL - ENT Exam ENT Exam: Normal Oropharynx - Neck Exam Neck Exam: Normal Inspection - Respiratory Exam Respiratory Exam: Decreased Breath Sounds (RUL), Rhonchi (few) Additional comments: tenderness R L anterior chest wall, R L Scapular - Cardiovascular Exam Cardiovascular Exam: REGULAR RHYTHM - GI/Abdominal Exam GI & Abdominal Exam: Soft, Normal Bowel Sounds - Extremities Exam Extremities Exam: Normal Inspection - Back Exam Back Exam: tenderness - Neurological Exam Neurological Exam: Alert, Oriented x3. absent: Motor Sensory Deficit - Skin Skin Exam: Warm Assessment and Plan (1) PNA (pneumonia) Status: Acute (2) Neoplasm of lung, upper lobe, malignant Status: Acute (3) Malignant neoplasm metastatic to liver Status: Acute (4) CAD (coronary artery disease) Status: Chronic (5) Chronic lumbosacral pain Status: Chronic (6) HTN (hypertension) Status: Chronic (7) Hx of hepatitis C Status: Chronic (8) Chronic foot pain Status: Chronic (9) Anxiety Status: Chronic - Assessment and Plan (Free Text) Plan: CXR RUL PNA improved , to be transfer in am to Med-Surg for Chemotherapy treatment
[2016-06-22] MEDS: cefTRIAXone 2 GM in Sodium Chloride 0.9% 100 ML IVPB SCH (17:23)
[2016-06-22] MEDS: Docusate-Senna 50 mg-8.6 mg Tab PO SCH (21:00)
[2016-06-23] MEDS: Promethazine/Cod 6.25mg-10mg/5ml Syr UD PO PRN ×2 (03:42→11:09)
[2016-06-23] MEDS: Enoxaparin 40 mg Syringe SC SCH (08:26)
[2016-06-23] MEDS: Lactobacillus Acidophilus 500 MU Cap PO SCH ×2 (08:26→17:49)
--- NOTE | 2016-06-23 18:01 | CP.PCM.PN ---
Subjective - Date & Time of Evaluation Date of Evaluation: 06/23/16 Time of Evaluation: 11:15 - Subjective Subjective: F/U PNA, RUL Neoplasm. Cough ,Chest congestion improved, pain R L anterior chest wall , R L scapular improved, Chemotherapy no AE Objective - Vital Signs/Intake and Output Vital Signs (last 24 hours): Temp Pulse Resp BP Pulse Ox 98.1 F 70 20 116/60 100 06/23/16 08:02 06/23/16 08:02 06/23/16 08:02 06/23/16 08:02 06/23/16 08:02 - Medications Medications: Current Medications Albuterol/Ipratropium (Duoneb 3 Mg/0.5 Mg (3 Ml) Ud) 3 ml INH RQ4 PRN PRN Reason: Shortness of Breath Last Admin: 06/22/16 07:29 Dose: 3 ml Alprazolam (Xanax) 0.5 mg PO TID PRN PRN Reason: Anxiety Last Admin: 06/22/16 21:00 Dose: 0.5 mg Docusate Sodium (Colace) 100 mg PO DAILY [facility] Last Admin: 06/23/16 08:26 Dose: 100 mg Enoxaparin Sodium (Lovenox) 40 mg SC DAILY [facility] PRN Reason: Protocol Last Admin: 06/23/16 08:26 Dose: 40 mg Fentanyl (Duragesic) 1 patch TD Q3D [facility] PRN Reason: Protocol Last Admin: 06/22/16 15:18 Dose: 1 patch Hydrocortisone (Anusol-Hc) 1 applic [place] BID PRN PRN Reason: hemoroids pain Last Admin: 06/22/16 08:41 Dose: 1 applic Hydromorphone HCl (Dilaudid) 4 mg PO Q4 PRN PRN Reason: Pain, severe (8-10) Last Admin: 06/23/16 09:00 Dose: 4 mg Ceftriaxone Sodium 2 gm/ (Sodium Chloride) 100 mls @ 100 mls/hr IVPB DAILY@ 2100 [facility] Lactobacillus Acidophilus (Bacid Acidophilus) 1 cap PO BID [facility] Last Admin: 06/23/16 17:49 Dose: 1 cap Lactulose (Enulose) 20 gm PO DAILY PRN PRN Reason: Constipation Methadone HCl (Methadone) 10 mg PO Q8 [facility] Last Admin: 06/23/16 17:49 Dose: 10 mg Pregabalin (Lyrica) 100 mg PO Q8 [facility] Last Admin: 06/23/16 17:49 Dose: 100 mg Promethazine HCl/Codeine (Phenergan/Codeine Oral Syrup) 10 ml PO Q6 PRN PRN Reason: Cough Last Admin: 06/23/16 11:09 Dose: 10 ml Senna/Docusate Sodium (Senokot S 50 Mg-8.6 Mg) 1 tab PO HS [facility] Last Admin: 06/22/16 21:00 Dose: 1 tab - Labs Labs: 06/22/16 07:00 06/22/16 07:00 - Constitutional Appears: No Acute Distress, Chronically Ill - Head Exam Head Exam: NORMAL INSPECTION - Eye Exam Eye Exam: PERRL - ENT Exam ENT Exam: Normal Oropharynx - Neck Exam Neck Exam: Normal Inspection - Respiratory Exam Respiratory Exam: Decreased Breath Sounds (RUL) Additional comments: Tenderness R-L anterior chest wall, L R Scapular. - Cardiovascular Exam Cardiovascular Exam: REGULAR RHYTHM - GI/Abdominal Exam GI & Abdominal Exam: Soft, Normal Bowel Sounds - Extremities Exam Extremities Exam: Normal Inspection - Back Exam Back Exam: NORMAL INSPECTION - Neurological Exam Neurological Exam: Alert, Oriented x3. absent: Motor Sensory Deficit - Psychiatric Exam Psychiatric exam: Anxious - Skin Skin Exam: Warm Assessment and Plan (1) PNA (pneumonia) Status: Acute (2) Neoplasm of lung, upper lobe, malignant Status: Acute (3) Malignant neoplasm metastatic to liver Status: Acute (4) CAD (coronary artery disease) Status: Chronic (5) Chronic lumbosacral pain Status: Chronic (6) HTN (hypertension) Status: Chronic (7) Hx of hepatitis C Status: Chronic (8) Chronic foot pain Status: Chronic (9) Anxiety Status: Chronic - Assessment and Plan (Free Text) Plan: Continue Rocephin , DuoNeb,Pain medication, Chemotherapy
[2016-06-23] MEDS: Docusate-Senna 50 mg-8.6 mg Tab PO SCH (21:44)
[2016-06-23] MEDS: cefTRIAXone 2 GM in Sodium Chloride 0.9% 100 ML IVPB SCH (21:45)
[2016-06-24] MEDS: Promethazine/Cod 6.25mg-10mg/5ml Syr UD PO PRN (01:13)
[2016-06-24] MEDS: Lactobacillus Acidophilus 500 MU Cap PO SCH ×2 (08:04→16:29)
[2016-06-24] MEDS: Enoxaparin 40 mg Syringe SC SCH (08:05)
--- NOTE | 2016-06-24 14:36 | CP.PCM.PN ---
Subjective - Date & Time of Evaluation Date of Evaluation: 06/24/16 Time of Evaluation: 08:30 - Subjective Subjective: F/u PNA/ Lung Neoplasm Less cough and Chest congestion, pain chest wall and Scapular improved , Chemotherapy no AE Objective - Vital Signs/Intake and Output Vital Signs (last 24 hours): Temp Pulse Resp BP Pulse Ox 97.4 F L 86 20 128/77 100 06/24/16 08:33 06/24/16 08:33 06/24/16 08:33 06/24/16 08:33 06/24/16 08:33 - Medications Medications: Current Medications Albuterol/Ipratropium (Duoneb 3 Mg/0.5 Mg (3 Ml) Ud) 3 ml INH RQ4 PRN PRN Reason: Shortness of Breath Last Admin: 06/22/16 07:29 Dose: 3 ml Alprazolam (Xanax) 0.5 mg PO TID PRN PRN Reason: Anxiety Last Admin: 06/24/16 01:08 Dose: 0.5 mg Docusate Sodium (Colace) 100 mg PO DAILY [facility] Last Admin: 06/24/16 08:05 Dose: 100 mg Enoxaparin Sodium (Lovenox) 40 mg SC DAILY [facility] PRN Reason: Protocol Last Admin: 06/24/16 08:05 Dose: 40 mg Fentanyl (Duragesic) 1 patch TD Q3D [facility] PRN Reason: Protocol Last Admin: 06/22/16 15:18 Dose: 1 patch Hydrocortisone (Anusol-Hc) 1 applic [place] BID PRN PRN Reason: hemoroids pain Last Admin: 06/22/16 08:41 Dose: 1 applic Hydromorphone HCl (Dilaudid) 4 mg PO Q4 PRN PRN Reason: Pain, severe (8-10) Last Admin: 06/24/16 08:04 Dose: 4 mg Ceftriaxone Sodium 2 gm/ (Sodium Chloride) 100 mls @ 100 mls/hr IVPB DAILY@ 2100 [facility] Last Admin: 06/23/16 21:45 Dose: 100 mls/hr Lactobacillus Acidophilus (Bacid Acidophilus) 1 cap PO BID [facility] Last Admin: 06/24/16 08:04 Dose: 1 cap Lactulose (Enulose) 20 gm PO DAILY PRN PRN Reason: Constipation Methadone HCl (Methadone) 10 mg PO Q8 [facility] Last Admin: 06/24/16 08:04 Dose: 10 mg Pregabalin (Lyrica) 100 mg PO Q8 [facility] Last Admin: 06/24/16 08:05 Dose: 100 mg Promethazine HCl/Codeine (Phenergan/Codeine Oral Syrup) 10 ml PO Q6 PRN PRN Reason: Cough Last Admin: 06/24/16 01:13 Dose: 10 ml Senna/Docusate Sodium (Senokot S 50 Mg-8.6 Mg) 1 tab PO HS [facility] Last Admin: 06/23/16 21:44 Dose: 1 tab - Labs Labs: 06/22/16 07:00 06/22/16 07:00 - Constitutional Appears: No Acute Distress - Head Exam Head Exam: NORMAL INSPECTION - Eye Exam Eye Exam: PERRL - ENT Exam ENT Exam: Normal Exam - Neck Exam Neck Exam: Normal Inspection - Respiratory Exam Respiratory Exam: Decreased Breath Sounds (RUL) Additional comments: tenderness R L upper chest wall , R L Scapular - Cardiovascular Exam Cardiovascular Exam: REGULAR RHYTHM - GI/Abdominal Exam GI & Abdominal Exam: Soft, Normal Bowel Sounds - Extremities Exam Extremities Exam: Normal Inspection - Back Exam Back Exam: NORMAL INSPECTION - Neurological Exam Neurological Exam: Alert, Oriented x3. absent: Motor Sensory Deficit - Psychiatric Exam Psychiatric exam: Anxious - Skin Skin Exam: Warm Assessment and Plan (1) PNA (pneumonia) Status: Acute (2) Neoplasm of lung, upper lobe, malignant Status: Acute (3) Malignant neoplasm metastatic to liver Status: Acute (4) CAD (coronary artery disease) Status: Chronic (5) Chronic lumbosacral pain Status: Chronic (6) HTN (hypertension) Status: Chronic (7) Hx of hepatitis C Status: Chronic (8) Chronic foot pain Status: Chronic (9) Anxiety Status: Chronic - Assessment and Plan (Free Text) Plan: Continue Rocephin , DuoNeb , pain medication , Chemotherapy
[2016-06-24] MEDS: cefTRIAXone 2 GM in Sodium Chloride 0.9% 100 ML IVPB SCH (20:14)
[2016-06-24] MEDS: Docusate-Senna 50 mg-8.6 mg Tab PO SCH (21:12)
[2016-06-25] MEDS: Enoxaparin 40 mg Syringe SC SCH (08:23)
[2016-06-25] MEDS: Lactobacillus Acidophilus 500 MU Cap PO SCH ×2 (08:24→17:20)
[2016-06-25] MEDS: Promethazine/Cod 6.25mg-10mg/5ml Syr UD PO PRN (08:42)
--- NOTE | 2016-06-25 15:16 | CP.PCM.PN ---
Subjective - Date & Time of Evaluation Date of Evaluation: 06/25/16 Time of Evaluation: 13:15 - Subjective Subjective: F/U PNA, RUL Neoplasm. No c/o, having Chemo, no AE Objective - Vital Signs/Intake and Output Vital Signs (last 24 hours): Temp Pulse Resp BP Pulse Ox 98.6 F 62 20 107/52 L 99 06/25/16 08:20 06/25/16 08:20 06/25/16 08:20 06/25/16 08:20 06/25/16 08:20 - Medications Medications: Current Medications Albuterol/Ipratropium (Duoneb 3 Mg/0.5 Mg (3 Ml) Ud) 3 ml INH RQ4 PRN PRN Reason: Shortness of Breath Last Admin: 06/22/16 07:29 Dose: 3 ml Alprazolam (Xanax) 0.5 mg PO TID PRN PRN Reason: Anxiety Last Admin: 06/24/16 20:43 Dose: 0.5 mg Clotrimazole (Lotrimin 1% Cream) 1 applic TOP Q12 [facility] Last Admin: 06/25/16 08:24 Dose: 1 applic Docusate Sodium (Colace) 100 mg PO DAILY [facility] Last Admin: 06/25/16 08:24 Dose: 100 mg Enoxaparin Sodium (Lovenox) 40 mg SC DAILY [facility] PRN Reason: Protocol Last Admin: 06/25/16 08:23 Dose: 40 mg Hydrocortisone (Anusol-Hc) 1 applic [place] BID PRN PRN Reason: hemoroids pain Last Admin: 06/22/16 08:41 Dose: 1 applic Hydromorphone HCl (Dilaudid) 4 mg PO Q4 PRN PRN Reason: Pain, severe (8-10) Last Admin: 06/25/16 14:18 Dose: 4 mg Ceftriaxone Sodium 2 gm/ (Sodium Chloride) 100 mls @ 100 mls/hr IVPB DAILY@ 2100 [facility] Last Admin: 06/24/16 20:14 Dose: 100 mls/hr Lactobacillus Acidophilus (Bacid Acidophilus) 1 cap PO BID [facility] Last Admin: 06/25/16 08:24 Dose: 1 cap Lactulose (Enulose) 20 gm PO DAILY PRN PRN Reason: Constipation Methadone HCl (Methadone) 10 mg PO Q8 [facility] Last Admin: 06/25/16 08:24 Dose: 10 mg Pregabalin (Lyrica) 100 mg PO Q8 [facility] Last Admin: 06/25/16 08:24 Dose: 100 mg Promethazine HCl/Codeine (Phenergan/Codeine Oral Syrup) 10 ml PO Q6 PRN PRN Reason: Cough Last Admin: 06/25/16 08:42 Dose: 10 ml Senna/Docusate Sodium (Senokot S 50 Mg-8.6 Mg) 1 tab PO HS [facility] Last Admin: 06/24/16 21:12 Dose: 1 tab - Labs Labs: 06/22/16 07:00 06/22/16 07:00 - Constitutional Appears: No Acute Distress - Head Exam Head Exam: NORMAL INSPECTION - Eye Exam Eye Exam: PERRL - ENT Exam ENT Exam: Normal Oropharynx - Neck Exam Neck Exam: Normal Inspection - Respiratory Exam Respiratory Exam: Decreased Breath Sounds (RUL) Additional comments: Increased Air entrance RUL. Tenderness R-L anterior chest wall, L scapular. - Cardiovascular Exam Cardiovascular Exam: REGULAR RHYTHM - GI/Abdominal Exam GI & Abdominal Exam: Soft, Normal Bowel Sounds - Extremities Exam Extremities Exam: Normal Inspection - Back Exam Back Exam: NORMAL INSPECTION - Neurological Exam Neurological Exam: Alert, Oriented x3. absent: Motor Sensory Deficit - Psychiatric Exam Psychiatric exam: Anxious - Skin Skin Exam: Warm Assessment and Plan (1) PNA (pneumonia) Status: Acute (2) Neoplasm of lung, upper lobe, malignant Status: Acute (3) Malignant neoplasm metastatic to liver Status: Acute (4) CAD (coronary artery disease) Status: Chronic (5) Chronic lumbosacral pain Status: Chronic (6) HTN (hypertension) Status: Chronic (7) Hx of hepatitis C Status: Chronic (8) Chronic foot pain Status: Chronic (9) Anxiety Status: Chronic - Assessment and Plan (Free Text) Plan: F/U CBC in Am , continue current Tx, CXR in AM.
[2016-06-25] MEDS: cefTRIAXone 2 GM in Sodium Chloride 0.9% 100 ML IVPB SCH (20:15)
[2016-06-25 20:48] VITALS: O2SAT 99
[2016-06-25] MEDS: Docusate-Senna 50 mg-8.6 mg Tab PO SCH (21:15)
[2016-06-26] MEDS: Promethazine/Cod 6.25mg-10mg/5ml Syr UD PO PRN ×3 (04:19→16:17)
[2016-06-26 08:19] VITALS: BP 120/64; PULSE 60; TEMP 97.8
[2016-06-26] MEDS: Lactobacillus Acidophilus 500 MU Cap PO SCH ×2 (08:29→16:13)
[2016-06-26] MEDS: Enoxaparin 40 mg Syringe SC SCH (08:37)
[2016-06-26] MEDS ORDERED: PEGFILGRASTIM 6 MG/0.6 ML SC ONE (15:30)
--- NOTE | 2016-06-26 17:06 | RAD ---
HISTORY: Pneumonia, chest pain. COMPARISON: 06/22/2016 TECHNIQUE: Chest PA and lateral FINDINGS: LUNGS: Stable infiltrates/consolidative changes right upper lobe. PLEURA: No significant pleural effusion identified. No pneumothorax apparent. CARDIOVASCULAR: No radiographic findings to suggest acute or significant cardiovascular disease.Venous access catheter in stable, satisfactory position. OSSEOUS STRUCTURES: No significant abnormalities. VISUALIZED UPPER ABDOMEN: Normal. OTHER FINDINGS: Stable fullness in the mediastinum likely adenopathy. IMPRESSION: Stable right upper lobe infiltrate. No significant interval change compared to the prior examination(s).
--- NOTE | 2016-06-26 17:13 | CP.PCM.PN ---
Subjective - Date & Time of Evaluation Date of Evaluation: 06/26/16 Time of Evaluation: 11:40 - Subjective Subjective: F/U PNA / RUL Neoplasm. No c/o of cough, pain R-L anterior chest wall, L scapular. Objective - Vital Signs/Intake and Output Vital Signs (last 24 hours): Temp Pulse Resp BP Pulse Ox 97.8 F 60 20 120/64 99 06/26/16 08:16 06/26/16 08:16 06/26/16 08:16 06/26/16 08:16 06/26/16 08:16 - Labs Labs: 06/22/16 07:00 06/22/16 07:00 - Constitutional Appears: No Acute Distress - Head Exam Head Exam: NORMAL INSPECTION - Eye Exam Eye Exam: PERRL - ENT Exam ENT Exam: Normal Oropharynx - Neck Exam Neck Exam: Normal Inspection - Respiratory Exam Additional comments: Increased air entrance RUL. minimal tenderness R-L anterior chest wall, L scapular. - Cardiovascular Exam Cardiovascular Exam: REGULAR RHYTHM - GI/Abdominal Exam GI & Abdominal Exam: Soft, Normal Bowel Sounds - Extremities Exam Extremities Exam: Normal Inspection - Back Exam Back Exam: NORMAL INSPECTION - Neurological Exam Neurological Exam: Alert, Oriented x3. absent: Motor Sensory Deficit - Psychiatric Exam Psychiatric exam: Anxious - Skin Skin Exam: Warm Assessment and Plan (1) PNA (pneumonia) Status: Acute (2) Neoplasm of lung, upper lobe, malignant Status: Acute (3) Malignant neoplasm metastatic to liver Status: Acute (4) CAD (coronary artery disease) Status: Chronic (5) Chronic lumbosacral pain Status: Chronic (6) HTN (hypertension) Status: Chronic (7) Hx of hepatitis C Status: Chronic (8) Chronic foot pain Status: Chronic (9) Anxiety Status: Chronic - Assessment and Plan (Free Text) Plan: Pt improved and stable to be discharged, see instruction medication sheet, f/u in infusion therapy next Thursday for CBC, f/u in my office in a week, f/u Hematology remediation bioanalytics consultant.
== END 2016-06-26 16:45 | disposition home or self-care (01) | DRG 194 ==
LOC: H.TCU 14:31
PROVIDERS: ADMIT Internal Medicine Pulmonary Disease; ATTEND Internal Medicine Pulmonary Disease
PROC: F08Z4FZ Home Management Treatment using Assistive, Adaptive, Supportive or Protective Equipment (ICD-10-PCS; principal; 2016-06-19)
PROC: F07L6ZZ Therapeutic Exercise Treatment of Musculoskeletal System - Lower Back / Lower Extremity (ICD-10-PCS; 2016-06-19)
PROC: 3E03329 Introduction of Other Anti-infective into Peripheral Vein, Percutaneous Approach (ICD-10-PCS; 2016-06-19)
PROC: 3E0F7GC Introduction of Other Therapeutic Substance into Respiratory Tract, Via Natural or Artificial Opening (ICD-10-PCS; 2016-06-21)
DX: J18.9 Pneumonia, unspecified organism (principal); C78.7 Secondary malignant neoplasm of liver and intrahepatic bile duct; I10 Essential (primary) hypertension; E78.00 Pure hypercholesterolemia, unspecified; Z95.5 Presence of coronary angioplasty implant and graft; F41.9 Anxiety disorder, unspecified; G89.29 Other chronic pain; I25.10 Atherosclerotic heart disease of native coronary artery without angina pectoris; D49.1 Neoplasm of unspecified behavior of respiratory system; M54.5 Low back pain; M25.579 Pain in unspecified ankle and joints of unspecified foot; Z86.19 Personal history of other infectious and parasitic diseases; F17.210 Nicotine dependence, cigarettes, uncomplicated

== ENCOUNTER 2016-09-10 22:59 | Inpatient (IN) | payer BC, OTHER ==
[2016-09-10 23:00] VITALS: BMI 30.7
[2016-09-10] MEDS ORDERED: Sodium Chloride 0.9% 1,000 ML IV STA (23:32)
--- NOTE | 2016-09-10 23:54 | ED PDOC ---
HPI: Chest Pain Time Seen by Provider: 09/10/16 23:13 Chief Complaint (Nursing): Chest Pain Chief Complaint (Provider): Chest Pain History Per: Patient History/Exam Limitations: no limitations Onset/Duration Of Symptoms: Days (ONE) Current Symptoms Are (Timing): Still Present Associated Symptoms: Nausea Additional Complaint(s): 56 y/o male presenting to the ED with chest pain, vomiting and diarrhea. Patient states that the pain began yesterday and he had some chest pain radiating to his back as well as shortness of breath and patient notes the pain is constant. Patient notes the chest pain is chronic and he currently has small cell lung cancer which he notes he is taking Dilantin at home for and he is currently on chemotherapy and his last treatment was twenty-one days ago. Patient also notes he receives injections of Neupogen as well. Patient notes he is feeling weak, has no appetite, cramping but no abdominal pain, watery diarrhea but non-bloody, vomiting multiples times but non-bloody, chills and denies fever. His current specialty provider is Dr. Durán and Dr. Saxena for primary care. Past Medical History Reviewed: Historical Data, Nursing Documentation, Vital Signs Vital Signs: Last Vital Signs Temp 98.3 F 09/11/16 19:41 Pulse 93 H 09/11/16 19:41 Resp 20 09/11/16 19:41 BP 117/63 09/11/16 19:41 Pulse Ox 98 09/11/16 19:41 - Medical History PMH: Anxiety, Bronchitis (resolved), CAD, HTN, Hypercholesterolemia Denies: Chronic Kidney Disease Other PMH: Small Cell Lung Cancer - Surgical History Surgical History: Coronary Stent - Family History Family History: States: Unknown Family Hx - Social History Current smoker - smoking cessation education provided: No Alcohol: None Drugs: Denies - Home Medications Home Medications: Ambulatory Orders Medication Instructions Recorded Alprazolam [Xanax] 0.5 mg PO TID PRN 05/22/16 Docusate [Colace] 200 mg PO DAILY 07/16/16 Promethazine/Codeine 5 ml PO PRN PRN 07/21/16 [Phenergan/Codeine Oral Syrup] Methadone 10 mg PO Q4 08/11/16 Hydromorphone HCl [Dilaudid] 4 mg IM Q4 09/11/16 - Allergies Allergies/Adverse Reactions: Allergies Allergy/AdvReac Type Severity Reaction Status Date / Time No Known Allergies Allergy Verified 08/11/16 13:15 DIANNE Risk Score for UA/NSTEMI - DIANNE Risk Score Age > 64: NO 3 or more CAD Risk Factors: NO Known CAD (Stenosis greater than 50%): NO Aspirin use in past 7 days: NO Severe Angina: NO EKG ST changes greater than 0.5mm: NO Positive Cardiac Marker: NO DIANNE Score: 0 Risk %: 5% Curb-65 Severity Score - CURB-65 Severity Score Confusion: No Bun >19mg/dl (>7mmol/L): No Respiratory Rate greater than/equal to 30: No Systolic BP <90 or Diastolic BP less than/equal 60mmHg: No Age >64: No Curb-65 Score: 0 Percentage 30-day mortality: 0.6% Wells Criteria for PE - Wells Criteria for Pulmonary Embolism Clinical Signs and Symptoms of DVT: No P.E is #1 Diagnosis, or Equally Likely: No Immobilization at least 3 days;Surgery previous 4 weeks: No Previous, objectively diagnosed PE or DVT: No Hemoptysis: No Malignancy w/treatment within 6 months, or palliative: Yes Total Score: 1 Review of Systems ROS Statement: Except As Marked, All Systems Reviewed And Found Negative Constitutional: Positive for: Chills, Weakness. Negative for: Fever Cardiovascular: Positive for: Chest Pain. Negative for: Palpitations Respiratory: Positive for: Shortness of Breath Gastrointestinal: Positive for: Vomiting, Diarrhea, Other ((+)Cramping). Negative for: Abdominal Pain, Hematochezia, Hematemesis Skin: Negative for: Jaundice Physical Exam - Reviewed Nursing Documentation Reviewed: Yes Vital Signs Reviewed: Yes - Physical Exam Appears: Positive for: Non-toxic, No Acute Distress Head Exam: Positive for: ATRAUMATIC, NORMAL INSPECTION, NORMOCEPHALIC Skin: Positive for: Dry, Pallor ((Subcutaneous IV port on the right side of chest)). Negative for: Jaundice Eye Exam: Positive for: Normal appearance ENT: Positive for: Other ((+)Dry Mucus Membranes) Neck: Positive for: Normal, Painless ROM, Supple Cardiovascular/Chest: Positive for: Regular Rate, Rhythm. Negative for: Murmur Respiratory: Positive for: Decreased Breath Sounds ((+)Right Side). Negative for: Wheezing Gastrointestinal/Abdominal: Positive for: Normal Exam, Soft. Negative for: Tenderness, Distended Extremity: Positive for: Normal ROM. Negative for: Tenderness, Calf Tenderness , Swelling Neurologic/Psych: Positive for: Alert, Oriented. Negative for: Motor/Sensory Deficits - Laboratory Results Result Diagrams: 09/11/16 11:30 09/11/16 11:30 - ECG ECG Rhythm: Positive for: Normal QRS, Normal ST Segment, Sinus Rhythm. Negative for: ST/T Changes Rate: 91 O2 Sat by Pulse Oximetry: 98 (RA) Pulse Ox Interpretation: Normal - Radiology X-Ray: Interpreted by Me, Viewed By Me X-Ray Interpretation: Infiltrates (Right lung) Medical Decision Making Medical Decision Making: Time: 2324 Initial impression: Chest pain acute and chronic. Chest pain from lung cancer/ pulmonary embolism. Vomiting and diarrhea due to gastroenteritis/complications of chemotherapy. Initial plan: --VBG SHOCK PANEL --EKG --CMP --LIPASE --TROPONIN I --URIC ACID --EKG-ED --CBC --PARTIAL THROMBOPLASTIN TIME --PROTHROMBIN TIME --CHEST ONE VIEW XRAY --HYDROMORPHONE 1MG IVP --SODIUM CHLORIDE 0.3% 1,000 ML IV 1,000 MLS/HR --ONDANSETRON 4MG IV --ONDANSETRON 4MG IV --BLOOD CULTURE --PAVING RAMMER --PAVING RAMMER --IN INSERTION (SALINE LOCK) --Reassess EKG: ED Physician ordered, reviewed, and independently interpreted the EKG. Time Interpreted : 2306 Rate : 91 Rhythm: NORMAL QRS, SINUS RHYTHM, NO ST/T CHANGES Scribe Attestation: Documented by Pinky Blakc, acting as a scribe for Carlos Alberto Whittaker MD. Scribe Attestation: All medical record entries made by the Scribe were at my direction and personally dictated by me. I have reviewed the chart and agree that the record accurately reflects my personal performance of the history, physical exam, medical decision making, and the department course for this patient. I have also personally directed, reviewed, and agree with the discharge instructions and disposition. Disposition - Clinical Impression Clinical Impression: Chest pain, Neoplasm of lung, upper lobe, malignant, Pneumonia, Gastroenteritis , Sepsis - Patient ED Disposition Is Patient to be Admitted: Yes (anil) Discussed With DrJustin: Isma Saxena Doctor Will See Patient In The: Hospital Counseled Patient/Family Regarding: Studies Performed, Diagnosis - Disposition Disposition Time: 01:50 Condition: FAIR - Pt Status Changed To: Hospital Disposition Of: Inpatient - Admit Certification Admit to Inpatient:: After my assessment, the patient will require hospitalization for at least two midnights. This is because of the severity of symptoms shown, intensity of services needed, and/or the medical risk in this patient being treated as an outpatient. - POA Present On Arrival: None Core Measure Indicators: Chest Pain
[2016-09-11 00:24] LABS: VENOUS BLOOD GAS BASE EXCESS 1.3 mmol/L (0.0-2.0); VENOUS BLOOD GAS PCO2 36 mmHg (40-60); VENOUS BLOOD GAS PO2 33 mm/Hg (30-55); VENOUS BLOOD PH 7.45 (7.32-7.43)
[2016-09-11 00:24] LABS: ALB/GLOB RATIO 1.7 (1.0-2.1); ALBUMIN 5.3 g/dL (3.5-5.0); ALT/SGPT 32 U/L (21-72); AST/SGOT 27 U/L (17-59); BLOOD UREA NITROGEN 22 mg/dl (9-20); CALCIUM 10.4 mg/dL (8.4-10.2); GFR AFRICAN-AMERICAN > 60; GFR NON-AFRICAN AMERICAN > 60; LIPASE 20 U/L (23-300)
[2016-09-11 00:35] LABS: BASO % 0.2 % (0.0-2.0); HEMOGLOBIN 12.5 g/dL (12.0-18.0); LYMPH # 1.1 K/uL (1.0-4.3); LYMPH % 6.4 % (20.0-40.0); MEAN CELL VOLUME 87.2 fl (80.0-94.0); MEAN CORPUSCULAR HEMOGLOBIN 28.5 pg (27.0-31.0); MEAN CORPUSCULAR HGB CONC 32.7 g/dL (33.0-37.0); MEAN PLATELET VOLUME 8.3 fl (7.2-11.7); MONO # 0.8 K/uL (0.0-0.8); MONO % 4.7 % (0.0-10.0); NEUT # 15.4 K/uL (1.8-7.0); NEUT % 88.7 % (50.0-75.0); PLATELET COUNT 246 K/uL (130-400); RBC 4.39 Mil/uL (4.40-5.90); RED CELL DISTRIBUTION WIDTH 18.3 % (11.5-14.5); WHITE BLOOD COUNT 17.3 K/uL (4.8-10.8)
[2016-09-11 00:37] LABS: PROTHROMBIN TIME 12.6 Seconds (9.8-13.1)
[2016-09-11 00:38] LABS: INR 1.1 (0.9-1.2)
[2016-09-11] MEDS ORDERED: Cefepime 2 GM in Sodium Chloride 0.9% 100 ML IVPB STA (01:56)
[2016-09-11] MEDS ORDERED: Sodium Chloride 0.9% 1,000 ML IV STA (01:56)
[2016-09-11] MEDS ORDERED: metroNIDAZOLE 500mg/100ml NS 100 ML IVPB STA (01:57)
[2016-09-11] MEDS ORDERED: Potassium Chloride 20 mEq ER Tab PO ONE ×4 (01:57→22:00)
[2016-09-11] MEDS ORDERED: metroNIDAZOLE 500mg/100ml NS 100 ML IVPB ONE (02:45)
[2016-09-11] MEDS ORDERED: Enoxaparin 80 mg Syringe SC STA (03:36)
[2016-09-11 04:12] LABS: BANDS 1 % (0-2); LYMPHOCYTE 7 % (20-50); MONOCYTE 4 % (0-10); NEUTROPHIL 88 % (42-75); TOTAL CELLS COUNTED 100
[2016-09-11 04:13] LABS: ANISOCYTOSIS SLIGHT; HYPOCHROMIC SLIGHT; PLATELET ESTIMATE NORMAL (NORMAL)
[2016-09-11] MEDS ORDERED: Promethazine/Cod 6.25mg-10mg/5ml Syr UD PO PRN ×2 (05:33→06:29)
[2016-09-11] MEDS ORDERED: levoFLOXacin 750 mg in D5W 750 MG/150 ML BAG IVPB SCH (09:00)
[2016-09-11] MEDS ORDERED: levoFLOXacin 750 mg in D5W 150 ML BAG IVPB SCH (09:00)
--- NOTE | 2016-09-11 10:17 | CARD ---
APPROVED REPORT EKG Measurement Heart [id number] <Conclusion> Normal sinus rhythm
[2016-09-11] MEDS: Piperacillin/Tazobact 3.375 GM in Sodium Chloride 0.9% 100 ML IVPB SCH ×3 (10:28→21:56)
[2016-09-11] MEDS: Bismuth Subsalicylate 262 mg/15 ml Sus (240 ml) PO PRN ×2 (10:31→16:15)
--- NOTE | 2016-09-11 11:16 | CP.PCM.CON ---
History of Present Illness - History of Present Illness History of Present Illness: This is a 56 yrs ld male who is well known to me. he was diagnosed to have a small cell lung cancer in may of 2016. He had a large mass in the mediastinum , in the hilar areas, and the retroperitoneal nodes. He had metastasis to the liver as well. he was started on chemotherapy with Cisplatin + etoposide. He tolerated the treatment well, went back to work and CT scan after 6 treatment showed a remarcable reduction in the tumor. He was doing well. His last chemo was on 08/27/16, and was given neulasta following that. He now was admitted for diarrhea, nausea and vomiting. Pt started having pain in the chest from all the vomiting. (He had been on a lot of medications before but as the chemo worked he was off all pain meds.) He felt he was sick, had chillsand came to the ER from where he was admitted to r/o , He was a heavy smoker until his cancer diagnosis was made, but has now stopped. Rarely drinks alcohol. Past Patient History - Infectious Disease Hx of Infectious Diseases: None - Past Medical History & Family History Past Medical History?: Yes - Past Social History Alcohol: None Drugs: Denies - CARDIAC Hx Hypercholesterolemia: Yes Hx Hypertension: Yes - PULMONARY Hx Bronchitis: Yes (resolved) - NEUROLOGICAL Hx Neurological Disorder: No - HEENT Hx HEENT Problems: No - RENAL Hx Chronic Kidney Disease: No - ENDOCRINE/METABOLIC Hx Endocrine Disorders: No - HEMATOLOGICAL/ONCOLOGICAL Hx Blood Disorders: Yes Hx AIDS: No Hx Chemotherapy: Yes Hx Hepatitis C: Yes Hx Human Immunodeficiency Virus (HIV): No - INTEGUMENTARY Hx Dermatological Problems: No - MUSCULOSKELETAL/RHEUMATOLOGICAL Hx Musculoskeletal Disorders: Yes (L foot pain s/p ORIF 2nd to Fx.) Hx Back Pain: Yes (intermittent) Hx Falls: Yes Hx Fractures: Yes - GASTROINTESTINAL Hx Hemorrhoids: Yes - GENITOURINARY/GYNECOLOGICAL Hx Genitourinary Disorders: No - PSYCHIATRIC Hx Anxiety: Yes - SURGICAL HISTORY Hx Coronary Stent: Yes - ANESTHESIA Hx Anesthesia: Yes Hx Anesthesia Reactions: No Hx Malignant Hyperthermia: No Meds Allergies/Adverse Reactions: Allergies Allergy/AdvReac Type Severity Reaction Status Date / Time No Known Allergies Allergy Verified 08/11/16 13:15 - Medications Medications: Current Medications Alprazolam (Xanax) 0.5 mg PO TID PRN PRN Reason: Anxiety Bismuth Subsalicylate (Pepto-Bismol) 524 mg PO Q4H PRN PRN Reason: Diarrhea Last Admin: 09/11/16 10:31 Dose: 524 mg Hydromorphone HCl (Dilaudid) 4 mg IVP Q4H PRN PRN Reason: Pain, severe (8-10) Last Admin: 09/11/16 10:27 Dose: 4 mg Piperacillin Sod/Tazobactam (Sod 3.375 gm/ Sodium Chloride) 100 mls @ 100 mls/ hr IVPB Q6 RYAN Last Admin: 09/11/16 10:28 Dose: 100 mls/hr Vancomycin HCl 1 gm/ Sodium (Chloride) 250 mls @ 166.667 mls/hr IVPB Q12 RYAN Last Admin: 09/11/16 10:29 Dose: 166.667 mls/hr Levofloxacin/Dextrose (Levaquin 750mg) 750 mg in 150 mls @ 100 mls/hr IVPB DAILY [facility] Last Admin: 09/11/16 10:30 Dose: 100 mls/hr Methadone HCl (Methadone) 10 mg PO Q4 PRN PRN Reason: pain Ondansetron HCl (Zofran Inj) 4 mg IVP Q4 PRN PRN Reason: Nausea/Vomiting Promethazine HCl/Codeine (Phenergan/Codeine Oral Syrup) 5 ml PO Q4H PRN PRN Reason: Cough Physical Exam - Additional Findings Additional findings: Physical exam; Alert, well orientred, in no acute distress neck; Supple,no adenopathy Chest; Clear, no rales or rhonchi Heart; RSR, no murmur Abd; Soft, no mass, no h/s megaly Results - Vital Signs Recent Vital Signs: Last Vital Signs Temp 97.9 F 09/11/16 08:00 Pulse 75 09/11/16 08:00 Resp 18 09/11/16 08:00 BP 145/78 09/11/16 08:00 Pulse Ox 99 09/11/16 08:00 - Labs Result Diagrams: 09/10/16 00:13 09/10/16 00:13 Assessment & Plan - Assessment and Plan (Free Text) Assessment: Impression; Most probably a viral episode. R/O PE Plan: Plan; Will await the result of the VQ scan . Will give lovenox if there is a PE. will check the stools for C diff. If both above are negative Pt will get his next chemotherapy on thursday - Date & Time Date: 09/11/16 Time: 11:24
--- NOTE | 2016-09-11 12:00 | NM ---
COMPARISON: September 11, 2016. TECHNIQUE: 38.0 mCi technetium 99-m DTPA aerosol. Perfusion scan not performed, absence of venous access FINDINGS: VENTILATION COMPONENT: Diminished ventilation right upper lobe corresponding to findings on concurrent chest x-ray. PERFUSION COMPONENT: Not performed IMPRESSION: Nondiagnostic examination. Perfusion component not performed. Ventilatory component demonstrates an area of diminished/ absent ventilation consistent with findings on recent chest radiograph
[2016-09-11 12:03] LABS: MEAN CELL VOLUME 86.9 fl (80.0-94.0); MEAN CORPUSCULAR HEMOGLOBIN 29.3 pg (27.0-31.0); MEAN CORPUSCULAR HGB CONC 33.7 g/dL (33.0-37.0); RBC 3.74 Mil/uL (4.40-5.90); WHITE BLOOD COUNT 7.4 K/uL (4.8-10.8)
[2016-09-11 12:12] LABS: ALB/GLOB RATIO 1.7 (1.0-2.1); ALBUMIN 4.4 g/dL (3.5-5.0); ALT/SGPT 21 U/L (21-72); AST/SGOT 31 U/L (17-59); BLOOD UREA NITROGEN 26 mg/dl (9-20); CALCIUM 9.1 mg/dL (8.4-10.2); GFR AFRICAN-AMERICAN > 60; GFR NON-AFRICAN AMERICAN > 60
--- NOTE | 2016-09-11 13:48 | RAD ---
PROCEDURE: CHEST RADIOGRAPH, 1 VIEW HISTORY: chest pain COMPARISON: 06/26/2016. FINDINGS: LUNGS: Improved aeration right upper lobe. PLEURA: No pneumothorax or pleural fluid seen. CARDIOVASCULAR: No radiographic findings to suggest acute or significant cardiovascular disease. Venous access catheter in stable, satisfactory position. OSSEOUS STRUCTURES: No significant abnormalities. VISUALIZED UPPER ABDOMEN: Normal. OTHER FINDINGS: None. IMPRESSION: Interval improvement right upper lobe infiltrate
--- NOTE | 2016-09-11 13:58 | CP.PCM.HP ---
History of Present Illness - History of Present Illness History of Present Illness: CC: N/V/D 56 y/o M, presented to ER [facility], [place] c/o of nausea, watery diarrhea and vomiting, non bloody x 2 days [employer] with no relief, associated to cough, non productive, non bloody, non bilious, at times paroxismal and chills. Worsening symptoms: Hx of R Lung Ca Dx on 05/26/16, on Chemo, last time was 02/01. Chronic retrosternal chest pain increasing with coughing, pain is intermittent, sharp, severe at times, intensity 6:10 to 10:10, radiated to upper back. Also c/o of Weakness, lack of appetite. Aggravated factor: Increased pain with cough, movements/exercise. Pt denied: SOB, fever, numbness, syncope, palpitation, dizziness, blurred vision, urinary symptoms, sick contact. PMHx: R Lung Ca on chemo, chronic Lumbago, CAD, S/P Coronary Stent, HTN, Dyslipidemia, Hepatitis C, Falls, L foot ORIF, Anxiety. EKG: Normal sinus rhythm. CXR shows: Interval improvement RUL infiltrate. Lung Scan: Non diagnostic examination, perfusion component not performed. Present on Admission - Present on Admission Any Indicators Present on Admission: No Review of Systems - Constitutional Constitutional: Chills, Weakness - EENT Eyes: Other (negative) Ears: Other (negative) Nose/Mouth/Throat: Other (negative) - Cardiovascular Cardiovascular: Chest Pain (retrosternal with coughing) - Respiratory Respiratory: Cough - Gastrointestinal Gastrointestinal: Diarrhea, Vomiting - Genitourinary Genitourinary: Other (negative) - Musculoskeletal Musculoskeletal: Back Pain - Integumentary Integumentary: Other (negative) - Neurological Neurological: Weakness - Psychiatric Psychiatric: Anxiety - Endocrine Endocrine: Other (negative) - Hematologic/Lymphatic Hematologic: Other (negative) Past Patient History - Infectious Disease Hx of Infectious Diseases: None - Past Medical History & Family History Past Medical History?: Yes Pertinent Family History: Unknown - Past Social History Smoking Status: Former Smoker (heavy smoker) Alcohol: None Drugs: Denies Home Situation {Lives}: Alone - CARDIAC Hx Cardiac Disorders: Yes Hx Hypercholesterolemia: Yes Hx Hypertension: Yes - PULMONARY Hx Respiratory Disorders: Yes Hx Bronchitis: Yes (resolved) Hx Lung Cancer: Yes - NEUROLOGICAL Hx Neurological Disorder: No - HEENT Hx HEENT Problems: No - RENAL Hx Chronic Kidney Disease: No - ENDOCRINE/METABOLIC Hx Endocrine Disorders: No - HEMATOLOGICAL/ONCOLOGICAL Hx Blood Disorders: Yes Hx AIDS: No Hx Chemotherapy: Yes Hx Hepatitis C: Yes Hx Human Immunodeficiency Virus (HIV): No - INTEGUMENTARY Hx Dermatological Problems: No - MUSCULOSKELETAL/RHEUMATOLOGICAL Hx Musculoskeletal Disorders: Yes (L foot pain s/p ORIF 2nd to Fx.) Hx Back Pain: Yes (intermittent) Hx Falls: Yes Hx Fractures: Yes - GASTROINTESTINAL Hx Gastrointestinal Disorders: Yes Hx Hemorrhoids: Yes - GENITOURINARY/GYNECOLOGICAL Hx Genitourinary Disorders: No - PSYCHIATRIC Hx Psychophysiologic Disorder: Yes Hx Anxiety: Yes - SURGICAL HISTORY Hx Coronary Stent: Yes - ANESTHESIA Hx Anesthesia: Yes Hx Anesthesia Reactions: No Hx Malignant Hyperthermia: No Meds Allergies/Adverse Reactions: Allergies Allergy/AdvReac Type Severity Reaction Status Date / Time No Known Allergies Allergy Verified 08/11/16 13:15 Physical Exam - Constitutional Appears: No Acute Distress, Chronically Ill - Head Exam Head Exam: NORMAL INSPECTION - Eye Exam Eye Exam: PERRL - ENT Exam ENT Exam: Normal Oropharynx - Neck Exam Neck exam: Positive for: Normal Inspection - Respiratory Exam Respiratory Exam: NORMAL BREATHING PATTERN - Cardiovascular Exam Cardiovascular Exam: REGULAR RHYTHM - GI/Abdominal Exam GI & Abdominal Exam: Normal Bowel Sounds, Soft - Extremities Exam Extremities exam: Positive for: normal inspection - Back Exam Back exam: tenderness - Neurological Exam Neurological exam: Alert, Oriented x3 Additional comments: No motor sensory deficit - Psychiatric Exam Psychiatric exam: Anxious - Skin Skin Exam: Normal Color, Warm Results - Vital Signs Recent Vital Signs: Last Vital Signs Temp 97.7 F 09/11/16 12:00 Pulse 68 09/11/16 12:00 Resp 18 09/11/16 12:00 BP 131/79 09/11/16 12:00 Pulse Ox 99 09/11/16 12:00 reviewed Nayeli - Labs Result Diagrams: 09/11/16 11:30 09/11/16 11:30 Labs: Laboratory Results - last 24 hr 09/11/16 09/11/16 09/11/16 11:30 11:30 Unknown WBC 7.4 D RBC 3.74 L Hgb 11.0 L Hct 32.5 L MCV 86.9 MCH 29.3 MCHC 33.7 RDW 18.0 H Plt Count 216 Sodium 139 Potassium 3.1 L Chloride 102 Carbon Dioxide 26 Anion Gap 14 BUN 26 H Creatinine 1.1 Est GFR ( Amer) > 60 Est GFR (Non-Af Amer) > 60 Random Glucose 148 H Calcium 9.1 Total Bilirubin 0.4 AST 31 ALT 21 D Alkaline Phosphatase 85 Total Protein 7.0 Albumin 4.4 Globulin 2.6 Albumin/Globulin Ratio 1.7 C. difficile Ag & Toxin Negative reviewed J.P. - EKG Data EKG comments: reviewed J.P. - Imaging and Cardiology Chest x-ray Status: Report reviewed by me (Nayeli) Assessment & Plan (1) Acute viral syndrome Status: Acute Priority: High (2) Neoplasm of lung, upper lobe, malignant Status: Acute Priority: High Comment: Small cell (3) Malignant neoplasm metastatic to liver Status: Acute Priority: High (4) CAD (coronary artery disease) Status: Chronic Priority: Medium (5) Chronic lumbosacral pain Status: Chronic Priority: High (6) HTN (hypertension) Status: Chronic Priority: Medium (7) Hx of hepatitis C Status: Chronic (8) Anxiety Status: Chronic Priority: High - Assessment and Plan (Free Text) Plan: Continue Reginaldo, Daniela, Michelleo, f/u CT Chest. - Date & Time Date: 09/11/16 Time: 10:30
[2016-09-11] MEDS ORDERED: Sodium Chloride 0.9% 50 ML IV ONE (14:10)
[2016-09-11] MEDS ORDERED: Iodixanol 320 MG/ML 100 ML BOTTLE IV ONE (14:10)
--- NOTE | 2016-09-11 16:03 | CT ---
PROCEDURE: CT Chest with contrast (Pulmonary Angiogram) HISTORY: r/o PE COMPARISON: None available. TECHNIQUE: Axial computed tomography images were obtained of the chest in the pulmonary arterial phase of enhancement. Coronal and sagittal reformatted images were created and reviewed. Intravenous contrast dose: 99 mL Visipaque 320 Radiation dose: Total exam DLP = 453.17 mGy-cm. This CT exam was performed using one or more of the following dose reduction techniques: Automated exposure control, adjustment of the mA and/or kV according to patient size, and/or use of iterative reconstruction technique. FINDINGS: PULMONARY ARTERIES: Unremarkable. No pulmonary embolism. AORTA: No acute findings. No thoracic aortic aneurysm. LUNGS: Persistent right hilar lymphadenopathy. Multifocal ill-defined spiculated densities in the right upper lobe unchanged from prior examination. Posterior right upper lobe pleural-based density unchanged. PLEURAL SPACES: Unremarkable. No effusion or pneuomothorax. HEART: Unremarkable. No cardiomegaly. No significant pericardial effusion. LYMPH NODES: In addition to above mentioned right hilar lymphadenopathy there is right peritracheal lymphadenopathy as well as prevascular lymphadenopathy, all with central high attenuation, likely calcification. This is unchanged from the prior examination. BONES, CHEST WALL: Ankylosis of T7 and T8 vertebral bodies. No evidence of fracture. No lytic or blastic osseous lesion identified. OTHER FINDINGS: Right central venous infusion port. IMPRESSION: No evidence of pulmonary embolism. Stable appearance of multifocal ill-defined spiculated densities in right upper lobe with right hilar lymphadenopathy and mediastinal lymphadenopathy.
[2016-09-12 04:31] LABS: HEMOGLOBIN 10.3 g/dL (12.0-18.0); MEAN CELL VOLUME 86.8 fl (80.0-94.0); MEAN CORPUSCULAR HEMOGLOBIN 29.6 pg (27.0-31.0); MEAN CORPUSCULAR HGB CONC 34.1 g/dL (33.0-37.0); RBC 3.48 Mil/uL (4.40-5.90); RED CELL DISTRIBUTION WIDTH 18.2 % (11.5-14.5); WHITE BLOOD COUNT 5.9 K/uL (4.8-10.8)
[2016-09-12 04:40] LABS: BLOOD UREA NITROGEN 22 mg/dl (9-20); GFR AFRICAN-AMERICAN > 60; GFR NON-AFRICAN AMERICAN > 60
[2016-09-12 04:53] VITALS: O2SAT 98
[2016-09-12 08:11] VITALS: BP 122/80; PULSE 74; RESP 20; TEMP 98.5
--- NOTE | 2016-09-12 08:19 | PQF GENQUE ---
This form is a permanent part of the medical record 09/12/16 Dr. Saxena, ER has documented the following information with no mention of these diagnoses in your documentation. Please indicate in your next progress note and/or discharge summary your agreement with system consultant or provide clarification that these diagnoses are not a current condition. Diagnoses: PNEUMONIA, SEPSIS, GASTROENTERITIS Admitted with nausea, diarrhea, vomiting, cough and chills. Currently on Chemotherapy. WBC 17.3 with a L shift. VBG lactate 2.2, Stool for leukocytes and c difficile negative. Urine cs <1000 CFU/ML and Blood CS no growth 24 hours preliminary. Initially treated with IVF and IVAB. Clarification of your documentation is requested to better reflect the severity of illness and intensity of treatment of your patient. PHYSICIAN'S RESPONSE Based on your medical judgment of the clinical indicators outlined above please clarify the following: [] Practitioner response [] If unable to determine, please check the box, sign and date. Present On Admission (POA) Indicator: [] Present at the time of admission [] Not present at the time of admission [] Clinically Undetermined In responding to this query, please exercise your independent professional judgment. The fact that a question is asked does not imply that any particular answer is desired or expected. Thank you for your clarification on this documentation. If you have any questions please call:ext [phone] Medical Records Dept * Thank you, Omaira Candelaria RN CDMP [facility]
--- NOTE | 2016-09-12 09:21 | CP.PCM.PN ---
Subjective - Date & Time of Evaluation Date of Evaluation: 09/12/16 Time of Evaluation: 09:18 - Subjective Subjective: Pt is feeling much better, Stools are a little bit more formed, and so far they are negative for C Diff.. His pain is better a swell so I have asked him to cut down on his pain medicine. If he continue to feel good, he may be discharged today to come back for the chemo on thursday Objective - Vital Signs/Intake and Output Vital Signs (last 24 hours): Temp Pulse Resp BP Pulse Ox 98.5 F 74 20 122/80 98 09/12/16 08:00 09/12/16 08:00 09/12/16 08:00 09/12/16 08:00 09/12/16 08:00 - Medications Medications: Current Medications Alprazolam (Xanax) 0.5 mg PO TID PRN PRN Reason: Anxiety Last Admin: 09/12/16 03:05 Dose: 0.5 mg Bismuth Subsalicylate (Pepto-Bismol) 524 mg PO Q4H PRN PRN Reason: Diarrhea Last Admin: 09/11/16 16:15 Dose: 524 mg Hydromorphone HCl (Dilaudid) 4 mg IVP Q4H PRN PRN Reason: Pain, severe (8-10) Last Admin: 09/12/16 07:08 Dose: 4 mg Methadone HCl (Methadone) 10 mg PO Q4 PRN PRN Reason: pain Last Admin: 09/11/16 21:03 Dose: 10 mg Ondansetron HCl (Zofran Inj) 4 mg IVP Q4 PRN PRN Reason: Nausea/Vomiting Promethazine HCl/Codeine (Phenergan/Codeine Oral Syrup) 5 ml PO Q4H PRN PRN Reason: Cough - Labs Labs: 09/12/16 04:28 09/12/16 04:28 PT 12.6 Seconds (9.8-13.1) 09/10/16 00:13 INR 1.1 (0.9-1.2) 09/10/16 00:13 APTT 35.0 Seconds (25.6-37.1) 09/10/16 00:13
--- NOTE | 2016-09-12 13:59 | CP.PCM.PN ---
Subjective - Date & Time of Evaluation Date of Evaluation: 09/12/16 Time of Evaluation: 10:50 - Subjective Subjective: F/U Acute Viral Syndrome. Pt doing well, no n/v/d, c/o of pain R posterior back,L-S. Objective - Vital Signs/Intake and Output Vital Signs (last 24 hours): Temp Pulse Resp BP Pulse Ox 98.5 F 74 20 122/80 98 09/12/16 09:00 09/12/16 09:00 09/12/16 09:00 09/12/16 09:00 09/12/16 09:00 - Labs Labs: 09/12/16 04:28 09/12/16 04:28 PT 12.6 Seconds (9.8-13.1) 09/10/16 00:13 INR 1.1 (0.9-1.2) 09/10/16 00:13 APTT 35.0 Seconds (25.6-37.1) 09/10/16 00:13 - Constitutional Appears: No Acute Distress, Chronically Ill - Head Exam Head Exam: NORMAL INSPECTION - Eye Exam Eye Exam: PERRL - ENT Exam ENT Exam: Normal Oropharynx - Neck Exam Neck Exam: Normal Inspection - Respiratory Exam Respiratory Exam: NORMAL BREATHING PATTERN - Cardiovascular Exam Cardiovascular Exam: REGULAR RHYTHM - GI/Abdominal Exam GI & Abdominal Exam: Soft, Normal Bowel Sounds - Extremities Exam Extremities Exam: Normal Inspection - Back Exam Back Exam: NORMAL INSPECTION - Neurological Exam Neurological Exam: Alert, Oriented x3. absent: Motor Sensory Deficit - Psychiatric Exam Psychiatric exam: Anxious - Skin Skin Exam: Normal Color, Warm Assessment and Plan (1) Acute viral syndrome Status: Acute (2) Neoplasm of lung, upper lobe, malignant Status: Acute (3) Malignant neoplasm metastatic to liver Status: Acute (4) CAD (coronary artery disease) Status: Chronic (5) Chronic lumbosacral pain Status: Chronic (6) HTN (hypertension) Status: Chronic (7) Hx of hepatitis C Status: Chronic (8) Anxiety Status: Chronic - Assessment and Plan (Free Text) Plan: VQ Scan negative for PE. Pt cleared by Cardiology and by Hematology to resume chemotherapy on Thursday. Pt improved and stable for discharge home with all instructions.
== END 2016-09-12 12:00 | disposition home or self-care (01) | DRG 865 ==
LOC: H.ER 22:59 → H.ERHOLD 09-11 01:59 → H.TEL 09-11 04:40
PROVIDERS: ADMIT Internal Medicine Pulmonary Disease; ATTEND Internal Medicine Pulmonary Disease
DX: B34.9 Viral infection, unspecified (principal); J18.9 Pneumonia, unspecified organism; C78.7 Secondary malignant neoplasm of liver and intrahepatic bile duct; C34.90 Malignant neoplasm of unspecified part of unspecified bronchus or lung; R07.89 Other chest pain; I25.10 Atherosclerotic heart disease of native coronary artery without angina pectoris; E78.00 Pure hypercholesterolemia, unspecified; I10 Essential (primary) hypertension; F41.9 Anxiety disorder, unspecified; Z95.5 Presence of coronary angioplasty implant and graft; Z87.891 Personal history of nicotine dependence; K52.9 Noninfective gastroenteritis and colitis, unspecified; G89.3 Neoplasm related pain (acute) (chronic); M54.5 Low back pain; G89.29 Other chronic pain

== ENCOUNTER 2016-10-20 11:51 | Inpatient (IN) | payer BC, OTHER ==
[2016-10-20 11:51] VITALS: BMI 30.4
[2016-10-20] MEDS ORDERED: Sodium Chloride 0.9% 1,000 ML IV STA ×2 (12:23→14:56)
--- NOTE | 2016-10-20 12:48 | ED PDOC ---
HPI: Abdomen Time Seen by Provider: 10/20/16 11:59 Chief Complaint (Nursing): Abdominal Pain Chief Complaint (Provider): Abdominal pain History Per: Patient History/Exam Limitations: no limitations Onset/Duration Of Symptoms: Days (chronic ) Current Symptoms Are (Timing): Still Present Additional Complaint(s): José Miguel Rubio is a 56 year old male with a past medical history of lung cancer for which he undergoes chemotherapy for the past 6 months presenting to the ED for recently worsening chronic episodes of vomiting and chest pain. The patient states he normally vomits and has chest pain due to his chemotherapy and lung cancer respectively, but recently he reports seeing a small amount of blood in his vomit which prompted his ED visit today. The patient reports taking Dilaudid 4 mg at home with chemotherapy treatments occurring repeatedly every 3 weeks. He also states he has an associated chronic cough. He denies bloody stools, diarrhea, abdominal pain, fever, and headache. Of note, the patient visits Dr. Durán for his cancer. PMD: Isma Saxena MD Past Medical History Reviewed: Historical Data, Nursing Documentation, Vital Signs Vital Signs: Last Vital Signs Temp 97.8 F 10/20/16 11:55 Pulse 71 10/20/16 14:48 Resp 16 10/20/16 11:55 BP 135/89 10/20/16 11:55 Pulse Ox 97 10/20/16 14:48 - Medical History PMH: Anxiety, Bronchitis (resolved), CAD, Fractures, HTN, Hypercholesterolemia Denies: HIV, Chronic Kidney Disease Other PMH: lung CA - Surgical History Surgical History: Coronary Stent - Family History Family History: States: Unknown Family Hx - Social History Current smoker - smoking cessation education provided: No Ex-Smoker (has not smoked in the last 12 months): Yes Alcohol: None Drugs: Denies - Home Medications Home Medications: Ambulatory Orders Medication Instructions Recorded Alprazolam [Xanax] 0.5 mg PO TID PRN 05/22/16 Docusate [Colace] 200 mg PO DAILY 07/16/16 Promethazine/Codeine 5 ml PO PRN PRN 07/21/16 [Phenergan/Codeine Oral Syrup] Methadone 10 mg PO Q4 08/11/16 Hydromorphone HCl [Dilaudid] 4 mg IM Q4 09/11/16 oxyCODONE/Acetaminophen [Percocet 1 tab PO PRN PRN 10/20/16 5/325 mg Tab] - Allergies Allergies/Adverse Reactions: Allergies Allergy/AdvReac Type Severity Reaction Status Date / Time No Known Allergies Allergy Verified 10/06/16 15:34 Review of Systems ROS Statement: Except As Marked, All Systems Reviewed And Found Negative Constitutional: Negative for: Fever Cardiovascular: Positive for: Chest Pain Respiratory: Positive for: Cough Gastrointestinal: Positive for: Vomiting, Hematemesis. Negative for: Abdominal Pain, Diarrhea, Hematochezia Neurological: Negative for: Headache Physical Exam - Reviewed Nursing Documentation Reviewed: Yes Vital Signs Reviewed: Yes - Physical Exam Appears: Positive for: Non-toxic, No Acute Distress (comfortable) Head Exam: Positive for: ATRAUMATIC, NORMOCEPHALIC Skin: Positive for: Normal Color, Warm, Dry Eye Exam: Positive for: Normal appearance, EOMI ENT: Positive for: Normal ENT Inspection Neck: Positive for: Normal, Painless ROM Cardiovascular/Chest: Positive for: Regular Rate, Rhythm Respiratory: Positive for: Normal Breath Sounds Gastrointestinal/Abdominal: Positive for: Soft. Negative for: Tenderness Back: Positive for: Normal Inspection Extremity: Positive for: Normal ROM Neurologic/Psych: Positive for: Alert, Oriented - Laboratory Results Result Diagrams: 10/20/16 12:55 10/20/16 12:55 - ECG ECG: Positive for: Interpreted By Me, Viewed By Me ECG Rhythm: Positive for: Normal QRS, Normal ST Segment, Sinus Rhythm (normal ) . Negative for: ST/T Changes Interpretation Of ECG: Interpreted by me, Carlos Alberto Whittaker MD. Rate: 71 O2 Sat by Pulse Oximetry: 97 (RA) Pulse Ox Interpretation: Normal Medical Decision Making Medical Decision Making: Time: 11:59 Impression: Chest pain and vomiting Differential diagnosis includes but is not limited to cancer related chest pain rule out ACS, pneumonia. Vomiting due to cancer, chemotherapy. Rule out upper GI bleed. Pt states he takes Dilaudid and requires pain medication for his pain. Plan: * ED EKG * CMP * Lipase * Troponin I * CBC (With Differential) * Chest One View [RAD] * Dilaudid 2 mg IVP * Zofran Inj 4 mg IV * NS 0.9% 1,000 ml IV 1,000 mls/hr * Reevaluation Chest X-ray: FINDINGS: No change right IJ MediPort with tip in the SVC/RA junction LUNGS: Progressive opacification right upper lobe could represent pneumonia. Suspect minor left basilar atelectasis. . PLEURA: No pneumothorax or pleural fluid seen. CARDIOVASCULAR: Heart size is borderline/mildly enlarged. OSSEOUS STRUCTURES: No significant abnormalities. VISUALIZED UPPER ABDOMEN: Normal. OTHER FINDINGS: None. IMPRESSION: Progressive opacification right upper lobe could represent pneumonia. Suspect minor left basilar atelectasis Scribe Attestation: Documented by Yasmeen Puente, acting as a scribe for Carlos Alberto Whittaker MD. Provider Scribe Attestation: All medical record entries made by the Scribe were at my direction and personally dictated by me. I have reviewed the chart and agree that the record accurately reflects my personal performance of the history, physical exam, medical decision making, and the department course for this patient. I have also personally directed, reviewed, and agree with the discharge instructions and disposition. Disposition - Clinical Impression Clinical Impression: ARF (acute renal failure), Chest pain, Lung mass, Anemia - Patient ED Disposition Is Patient to be Admitted: Yes Discussed With : Isma Saxena Doctor Will See Patient In The: Hospital Counseled Patient/Family Regarding: Studies Performed, Diagnosis - Disposition Disposition Time: 14:20 Condition: FAIR - Pt Status Changed To: Hospital Disposition Of: Inpatient - Admit Certification Admit to Inpatient:: After my assessment, the patient will require hospitalization for at least two midnights. This is because of the severity of symptoms shown, intensity of services needed, and/or the medical risk in this patient being treated as an outpatient. - POA Present On Arrival: None
--- NOTE | 2016-10-20 13:06 | RAD ---
PROCEDURE: CHEST RADIOGRAPH, 1 VIEW HISTORY: chest pain COMPARISON: Comparison chest radiograph and CTA chest both dated 09/11/2016 FINDINGS: No change right IJ MediPort with tip in the SVC/RA junction LUNGS: Progressive opacification right upper lobe could represent pneumonia. Suspect minor left basilar atelectasis. . PLEURA: No pneumothorax or pleural fluid seen. CARDIOVASCULAR: Heart size is borderline/mildly enlarged. OSSEOUS STRUCTURES: No significant abnormalities. VISUALIZED UPPER ABDOMEN: Normal. OTHER FINDINGS: None. IMPRESSION: Progressive opacification right upper lobe could represent pneumonia. Suspect minor left basilar atelectasis
[2016-10-20 13:16] LABS: BASO % 0.5 % (0.0-2.0); EOS % 0.7 % (0.0-4.0); HEMATOCRIT 25.6 % (35.0-51.0); LYMPH # 0.6 K/uL (1.0-4.3); LYMPH % 8.7 % (20.0-40.0); MEAN CORPUSCULAR HEMOGLOBIN 27.9 pg (27.0-31.0); MEAN CORPUSCULAR HGB CONC 32.1 g/dL (33.0-37.0); MEAN PLATELET VOLUME 7.9 fl (7.2-11.7); MONO # 0.8 K/uL (0.0-0.8); MONO % 11.2 % (0.0-10.0); NEUT # 5.8 K/uL (1.8-7.0); NEUT % 78.9 % (50.0-75.0); RED CELL DISTRIBUTION WIDTH 17.9 % (11.5-14.5); WHITE BLOOD COUNT 7.4 K/uL (4.8-10.8)
[2016-10-20 13:36] LABS: ALB/GLOB RATIO 1.5 (1.0-2.1); ALKALINE PHOSPHATASE 88 U/L (38-126); ALT/SGPT 25 U/L (21-72); AST/SGOT 24 U/L (17-59); BILIRUBIN,TOTAL 0.2 mg/dl (0.2-1.3); BLOOD UREA NITROGEN 22 mg/dl (9-20); CALCIUM 9.1 mg/dL (8.4-10.2); CARBON DIOXIDE 28 mmol/L (22-30); CHLORIDE 104 mmol/L (98-107); GFR AFRICAN-AMERICAN 37; GLUCOSE,RANDOM 95 mg/dL (75-110); LIPASE 10 U/L (23-300); POTASSIUM 3.9 MMOL/L (3.6-5.0); SODIUM 141 mmol/l (132-148); TOTAL PROTEIN 6.3 G/DL (6.3-8.2)
[2016-10-20 13:38] LABS: PLATELET COUNT 180 K/uL (130-400)
[2016-10-20 13:41] LABS: BASOPHIL 1 % (0-2); MYELOCYTE 1 % (0-0); NEUTROPHIL 75 % (42-75); TOTAL CELLS COUNTED 100
[2016-10-20 13:43] LABS: LARGE PLATELETS PRESENT
[2016-10-20] MEDS ORDERED: Promethazine/Cod 6.25mg-10mg/5ml Syr UD PO PRN (15:45)
[2016-10-20] MEDS ORDERED: Oxycodone/Acetaminophen 5/325 mg Tab PO PRN (15:45)
--- NOTE | 2016-10-20 15:49 | CP.PCM.PN ---
Objective - Vital Signs/Intake and Output Vital Signs (last 24 hours): Temp Pulse Resp BP Pulse Ox 97.9 F 79 22 145/90 97 10/20/16 15:23 10/20/16 15:23 10/20/16 15:23 10/20/16 15:23 10/20/16 14:54 Intake and Output: 10/20/16 10/20/16 06:59 18:59 Intake Total 1000 Balance 1000 - Medications Medications: Current Medications Alprazolam (Xanax) 0.5 mg PO TID PRN PRN Reason: Anxiety Docusate Sodium (Colace) 200 mg PO DAILY RYAN Hydromorphone HCl (Dilaudid) 4 mg IVP Q4 PRN PRN Reason: Pain, severe (8-10) Sodium Chloride (Sodium Chloride 0.9%) 1,000 mls @ 125 mls/hr IV .Q8H STA Stop: 10/20/16 22:55 Last Admin: 10/20/16 15:07 Dose: 125 mls/hr Methadone HCl (Methadone) 10 mg PO Q4 RYAN Oxycodone/Acetaminophen (Percocet 5/325 Mg Tab) 1 tab PO Q4 PRN PRN Reason: Pain, moderate (4-7) Stop: 10/23/16 15:46 Promethazine HCl/Codeine (Phenergan/Codeine Oral Syrup) 5 ml PO Q6 PRN PRN Reason: Cough
--- NOTE | 2016-10-20 15:50 | CP.PCM.HP ---
History of Present Illness - History of Present Illness History of Present Illness: 56 y/o M, with Hx of Small Cell Lung Ca , Mediastinum Lymph nodes and Liver metastasis, on Chemo , brought to ER [facility], Angie due to vomiting, nausea x 3 days [employer], worsening on DOA, partially relief with Zofran. Pt c/o that he has seen small amount of blood mixed with yellowish vomit (non- bilious) in AM DOA (x 2), associated to severe nausea and intermittent generalized abdominal pain, mild intensity 4:10. Worsening symptoms: Increased wall chest pain, R - L anterior chest and R posterior chest, chronic cough, anxiety. Aggravated factor: Increased pain with coughing/exercise. Pt denied: Fever,chills, diarrhea, bloody stool, urinary symptoms, dizziness, CP, palpitations, syncope, LOC, headache, SOB, sick contact, recent travel. PMHx: R Lung Small Cell Ca with Mediastinum Lymph nodes and Liver Metastasis , CAD with Coronary Stent, HTN, Dyslipidemia, chronic Lumbago, Hepatitis C, Hx Falls, L Foot ORIF, Anxiety. CXR showed: Progressive opacification RUL, could represent PNA. Present on Admission - Present on Admission Any Indicators Present on Admission: No Review of Systems - Constitutional Constitutional: Other (negative) - EENT Eyes: Other (negative) Ears: Other (negative) Nose/Mouth/Throat: Other (negative) - Cardiovascular Cardiovascular: Other (negative) - Respiratory Respiratory: Other (negative) - Gastrointestinal Gastrointestinal: Abdominal Pain, Hematemesis, Nausea, Vomiting - Genitourinary Genitourinary: Other (negative) - Musculoskeletal Musculoskeletal: Back Pain, Other (chest wall pain.) - Integumentary Integumentary: Other (negative) - Neurological Neurological: Other (negative) - Psychiatric Psychiatric: Anxiety - Endocrine Endocrine: Other (negative) - Hematologic/Lymphatic Hematologic: Other (anemia.) Past Patient History - Infectious Disease Hx of Infectious Diseases: None - Past Medical History & Family History Past Medical History?: Yes Pertinent Family History: Unknown - Past Social History Smoking Status: Former Smoker Alcohol: None Drugs: Denies Home Situation {Lives}: Alone - CARDIAC Hx Cardiac Disorders: Yes Hx Hypercholesterolemia: Yes Hx Hypertension: Yes - PULMONARY Hx Respiratory Disorders: Yes Hx Bronchitis: Yes Hx Lung Cancer: Yes - NEUROLOGICAL Hx Neurological Disorder: No - HEENT Hx HEENT Problems: No - RENAL Hx Chronic Kidney Disease: No - ENDOCRINE/METABOLIC Hx Endocrine Disorders: No - HEMATOLOGICAL/ONCOLOGICAL Hx Blood Disorders: Yes Hx AIDS: No Hx Chemotherapy: Yes Hx Hepatitis C: Yes Hx Human Immunodeficiency Virus (HIV): No - INTEGUMENTARY Hx Dermatological Problems: No - MUSCULOSKELETAL/RHEUMATOLOGICAL Hx Musculoskeletal Disorders: Yes Hx Back Pain: Yes Hx Fractures: Yes - GASTROINTESTINAL Hx Gastrointestinal Disorders: Yes Hx Hemorrhoids: Yes - GENITOURINARY/GYNECOLOGICAL Hx Genitourinary Disorders: No - PSYCHIATRIC Hx Psychophysiologic Disorder: Yes Hx Anxiety: Yes - SURGICAL HISTORY Hx Surgeries: Yes Hx Coronary Stent: Yes - ANESTHESIA Hx Anesthesia: Yes Hx Anesthesia Reactions: No Hx Malignant Hyperthermia: No Meds Allergies/Adverse Reactions: Allergies Allergy/AdvReac Type Severity Reaction Status Date / Time No Known Allergies Allergy Verified 10/06/16 15:34 Physical Exam - Constitutional Appears: No Acute Distress, Chronically Ill - Head Exam Head Exam: NORMAL INSPECTION - Eye Exam Eye Exam: PERRL - ENT Exam ENT Exam: Normal Exam - Neck Exam Neck exam: Positive for: Normal Inspection - Respiratory Exam Respiratory Exam: NORMAL BREATHING PATTERN Additional comments: tenderness R L anterior chest wall and R posterior Chest wall - Cardiovascular Exam Cardiovascular Exam: REGULAR RHYTHM Additional comments: Tenderness on palpation R-L anterior chest wall, R posterior chest wall. - GI/Abdominal Exam GI & Abdominal Exam: Normal Bowel Sounds, Soft. absent: Guarding, Rebound - Extremities Exam Extremities exam: Positive for: normal inspection - Back Exam Back exam: tenderness - Neurological Exam Neurological exam: Alert, Oriented x3 Additional comments: No motor sensory deficit. - Psychiatric Exam Psychiatric exam: Anxious - Skin Skin Exam: Normal Color, Warm Results - Vital Signs Recent Vital Signs: Last Vital Signs Temp 97.9 F 10/20/16 15:23 Pulse 79 10/20/16 15:23 Resp 22 10/20/16 15:23 BP 145/90 10/20/16 15:23 Pulse Ox 97 10/20/16 14:54 reviewed J.PJustin - Labs Result Diagrams: 10/22/16 06:00 10/22/16 06:00 Labs: Laboratory Results - last 24 hr 10/20/16 15:00 BBK History Checked No verified bt reviewed J.P. - Imaging and Cardiology Chest x-ray Status: Report reviewed by me (Nayeli) Assessment & Plan (1) Severe nausea and vomiting Status: Acute Priority: High (2) Neoplasm of lung, upper lobe, malignant Status: Acute Priority: High (3) Malignant neoplasm metastatic to liver Status: Acute Priority: High (4) GORDY (acute kidney injury) Status: Acute (5) Chronic lumbosacral pain Status: Chronic Priority: High (6) HTN (hypertension) Status: Chronic Priority: Medium (7) Anxiety Status: Chronic Priority: High - Assessment and Plan (Free Text) Plan: F/U EKG, Blood C-S, Continue Morphine, Methadone, Zofran, IV fluid and rest of Tx. Hematology and Nephrology consult , CT Chest , Abdomen , Pelvis with contrast when kidney function improves , empiric cover with Zosyn , Cipro until Pneumonia is ruled out - Date & Time Date: 10/20/16 Time: 15:30
[2016-10-20] MEDS: Dextrose 5%/0.45% NS 1,000 ML IV SCH (17:22)
[2016-10-21] MEDS: Dextrose 5%/0.45% NS 1,000 ML IV SCH ×3 (04:27→19:57)
[2016-10-21 08:52] LABS: HEMATOCRIT 26.6 % (35.0-51.0); MEAN CELL VOLUME 86.6 fl (80.0-94.0); MEAN CORPUSCULAR HEMOGLOBIN 28.6 pg (27.0-31.0); WHITE BLOOD COUNT 8.8 K/uL (4.8-10.8)
[2016-10-21 08:59] LABS: ALB/GLOB RATIO 1.4 (1.0-2.1); BILIRUBIN,TOTAL 0.3 mg/dl (0.2-1.3); CALCIUM 8.6 mg/dL (8.4-10.2); POTASSIUM 3.9 MMOL/L (3.6-5.0); TOTAL PROTEIN 6.1 G/DL (6.3-8.2)
--- NOTE | 2016-10-21 10:59 | CP.PCM.CON ---
History of Present Illness - History of Present Illness History of Present Illness: This is a 56 yrs old male who was diagnosed to have a small cell lung cancer with diffuse liver metastasis about 6 months ago. He had a large mediastinal and retroperitoneal mass, with a right upper lobe mass and hilar nodes. He was started on chemotheapy with etoposide and cisplatinum. Initially she had a excellent response, with complete resolution of the retroperitoneal nodes and the mediastinal mass. He was supposed to repeat the CT scan in 2 weeks, but was admitted with c/o nausea and vomiting, blood in the sputum, but not seen any more. Pt has a habit of taking many opioids and gets very agitated when he is not given the medicines on time. The liver metastasis have not improved. Will repeat the CT scan while he is in the hospital. Past Patient History - Infectious Disease Hx of Infectious Diseases: None - Past Medical History & Family History Past Medical History?: Yes - Past Social History Alcohol: None Drugs: Denies - CARDIAC Hx Hypercholesterolemia: Yes Hx Hypertension: Yes - PULMONARY Hx Respiratory Disorders: Yes - NEUROLOGICAL Hx Neurological Disorder: No - HEENT Hx HEENT Problems: No - RENAL Hx Chronic Kidney Disease: No - ENDOCRINE/METABOLIC Hx Endocrine Disorders: No - HEMATOLOGICAL/ONCOLOGICAL Hx Human Immunodeficiency Virus (HIV): No - INTEGUMENTARY Hx Dermatological Problems: No - MUSCULOSKELETAL/RHEUMATOLOGICAL Hx Fractures: Yes - GASTROINTESTINAL Hx Gastrointestinal Disorders: Yes Hx Hemorrhoids: Yes - GENITOURINARY/GYNECOLOGICAL Hx Genitourinary Disorders: No - PSYCHIATRIC Hx Anxiety: Yes - SURGICAL HISTORY Hx Coronary Stent: Yes - ANESTHESIA Hx Anesthesia: Yes Hx Anesthesia Reactions: No Hx Malignant Hyperthermia: No Meds Allergies/Adverse Reactions: Allergies Allergy/AdvReac Type Severity Reaction Status Date / Time No Known Allergies Allergy Verified 10/06/16 15:34 - Medications Medications: Current Medications Alprazolam (Xanax) 0.5 mg PO TID PRN PRN Reason: Anxiety Last Admin: 10/21/16 08:48 Dose: 0.5 mg Docusate Sodium (Colace) 200 mg PO DAILY RYAN Last Admin: 10/21/16 08:49 Dose: 200 mg Hydromorphone HCl (Dilaudid) 4 mg IVP Q4 PRN PRN Reason: Pain, severe (8-10) Last Admin: 10/21/16 08:44 Dose: 4 mg Dextrose/Sodium Chloride (Dextrose 5%/0.45% Ns 1000 Ml) 1,000 mls @ 80 mls/hr IV .[id number] [facility] Stop: 10/24/16 22:00 Last Admin: 10/21/16 04:27 Dose: 80 mls/hr Methadone HCl (Methadone) 10 mg PO Q4 [facility] Last Admin: 10/21/16 08:49 Dose: 10 mg Metoclopramide HCl (Reglan) 10 mg IVP Q6 [facility] Last Admin: 10/21/16 08:44 Dose: 10 mg Ondansetron HCl (Zofran Inj) 4 mg IVP Q4 PRN PRN Reason: Nausea/Vomiting Last Admin: 10/21/16 04:23 Dose: 4 mg Oxycodone/Acetaminophen (Percocet 5/325 Mg Tab) 1 tab PO Q4 PRN PRN Reason: Pain, moderate (4-7) Stop: 10/23/16 15:46 Promethazine HCl/Codeine (Phenergan/Codeine Oral Syrup) 5 ml PO Q6 PRN PRN Reason: Cough Physical Exam - Additional Findings Additional findings: Physica; exam; Alert, well oriented in no acute distress. neck; Supple, no mass or adenopathy Chest' Air entry poor both lung bhatt. right more than left. Heart; RSR, no murmur Abd; Soft, no mass, no h/s megaly Results - Vital Signs Recent Vital Signs: Last Vital Signs Temp 98.7 F 10/21/16 08:12 Pulse 70 10/21/16 08:12 Resp 20 10/21/16 08:12 BP 154/82 H 10/21/16 08:12 Pulse Ox 96 10/21/16 08:12 - Labs Result Diagrams: 10/21/16 08:37 10/21/16 08:37 Labs: Laboratory Results - last 24 hr 10/20/16 10/20/16 10/21/16 15:00 15:13 08:37 WBC 8.8 RBC 3.08 L Hgb 8.8 L Hct 26.6 L MCV 86.6 MCH 28.6 MCHC 33.0 RDW 18.0 H Plt Count 140 Sodium Potassium Chloride Carbon Dioxide Anion Gap BUN Creatinine Est GFR ( Amer) Est GFR (Non-Af Amer) Random Glucose Calcium Total Bilirubin AST ALT Alkaline Phosphatase Total Protein Albumin Globulin Albumin/Globulin Ratio Blood Type O POSITIVE Blood Type Confirm O POSITIVE Antibody Screen Negative BBK History Checked No verified bt 10/21/16 08:37 WBC RBC Hgb Hct MCV MCH MCHC RDW Plt Count Sodium 137 Potassium 3.9 Chloride 101 Carbon Dioxide 28 Anion Gap 12 BUN 16 Creatinine 1.7 H Est GFR ( Amer) 50 Est GFR (Non-Af Amer) 42 Random Glucose 97 Calcium 8.6 Total Bilirubin 0.3 AST 25 ALT 18 L D Alkaline Phosphatase 85 Total Protein 6.1 L Albumin 3.6 Globulin 2.5 Albumin/Globulin Ratio 1.4 Blood Type Blood Type Confirm Antibody Screen BBK History Checked Assessment & Plan - Assessment and Plan (Free Text) Assessment: Impression; small cell lung cancer, diffuse liver and lung metastasis. Plan: Plan; Will repeat Ct scan tomorrow after he has been hydrated to see if the creatinine is lower., and we can do the ct scan with contrast.
--- NOTE | 2016-10-21 12:16 | CP.PCM.PN ---
Subjective - Date & Time of Evaluation Date of Evaluation: 10/21/16 - Subjective Subjective: F/U Vomiting/nausea. Objective - Vital Signs/Intake and Output Vital Signs (last 24 hours): Temp Pulse Resp BP Pulse Ox 98.7 F 70 20 154/82 H 96 10/21/16 08:12 10/21/16 08:12 10/21/16 08:12 10/21/16 08:12 10/21/16 08:12 - Medications Medications: Current Medications Alprazolam (Xanax) 0.5 mg PO TID PRN PRN Reason: Anxiety Last Admin: 10/21/16 08:48 Dose: 0.5 mg Docusate Sodium (Colace) 200 mg PO DAILY [facility] Last Admin: 10/21/16 08:49 Dose: 200 mg Ciprofloxacin (Cipro 200mg/100ml D5w) 100 mls @ 100 mls/hr IVPB Q12 RYAN Piperacillin Sod/Tazobactam (Sod 2.25 gm/ Sodium Chloride) 100 mls @ 100 mls/ hr IVPB Q6 [facility] Dextrose/Sodium Chloride (Dextrose 5%/0.45% Ns 1000 Ml) 1,000 mls @ 125 mls/hr IV .Q8H [facility] Stop: 10/22/16 11:41 Methadone HCl (Methadone) 10 mg PO Q4 [facility] Last Admin: 10/21/16 08:49 Dose: 10 mg Metoclopramide HCl (Reglan) 10 mg IVP Q6 [facility] Last Admin: 10/21/16 08:44 Dose: 10 mg Morphine Sulfate (Morphine) 4 mg IVP Q4 PRN PRN Reason: Pain, severe (8-10) Ondansetron HCl (Zofran Inj) 4 mg IVP Q4 PRN PRN Reason: Nausea/Vomiting Last Admin: 10/21/16 04:23 Dose: 4 mg Oxycodone/Acetaminophen (Percocet 5/325 Mg Tab) 1 tab PO Q4 PRN PRN Reason: Pain, moderate (4-7) Stop: 10/23/16 15:46 Promethazine HCl/Codeine (Phenergan/Codeine Oral Syrup) 5 ml PO Q6 PRN PRN Reason: Cough - Constitutional Appears: No Acute Distress, Chronically Ill - Head Exam Head Exam: NORMAL INSPECTION - Eye Exam Eye Exam: PERRL - ENT Exam ENT Exam: Normal Exam - Neck Exam Neck Exam: Normal Inspection - Respiratory Exam Respiratory Exam: NORMAL BREATHING PATTERN - Cardiovascular Exam Cardiovascular Exam: REGULAR RHYTHM Additional comments: Tenderness R-L anterior chest wall, tenderness R posterior chest wall. - GI/Abdominal Exam GI & Abdominal Exam: Soft, Normal Bowel Sounds - Extremities Exam Extremities Exam: Normal Inspection - Back Exam Back Exam: tenderness (L-S) - Neurological Exam Neurological Exam: Alert, Awake, Oriented x3. absent: Motor Sensory Deficit - Psychiatric Exam Psychiatric exam: Anxious - Skin Skin Exam: Normal Color, Warm Assessment and Plan (1) GORDY (acute kidney injury) Status: Acute (2) Severe nausea and vomiting Status: Acute (3) Malignant neoplasm metastatic to liver Status: Acute (4) Neoplasm of lung, upper lobe, malignant Status: Acute (5) Anxiety Status: Chronic (6) Chronic lumbosacral pain Status: Chronic (7) HTN (hypertension) Status: Chronic
--- NOTE | 2016-10-21 15:30 | CP.PCM.CON ---
History of Present Illness - History of Present Illness History of Present Illness: RENAL CONSULT NOTE 56 yr old with htn, dm, cad, metastatic small cell lung cancer, recceiving chemotherapy is admitted with nausea vomiting and chest pain. denies any prior hx of ckd. on admission noted to have elevated creatinine. he is receiving fluids and cr is improved today Review of Systems - Review of Systems All systems: reviewed and no additional remarkable complaints except Past Patient History - Infectious Disease Hx of Infectious Diseases: None - Past Medical History & Family History Past Medical History?: Yes - Past Social History Alcohol: None Drugs: Denies - CARDIAC Hx Hypercholesterolemia: Yes Hx Hypertension: Yes - PULMONARY Hx Respiratory Disorders: Yes - NEUROLOGICAL Hx Neurological Disorder: No - HEENT Hx HEENT Problems: No - RENAL Hx Chronic Kidney Disease: No - ENDOCRINE/METABOLIC Hx Endocrine Disorders: No - HEMATOLOGICAL/ONCOLOGICAL Hx Human Immunodeficiency Virus (HIV): No - INTEGUMENTARY Hx Dermatological Problems: No - MUSCULOSKELETAL/RHEUMATOLOGICAL Hx Fractures: Yes - GASTROINTESTINAL Hx Gastrointestinal Disorders: Yes Hx Hemorrhoids: Yes - GENITOURINARY/GYNECOLOGICAL Hx Genitourinary Disorders: No - PSYCHIATRIC Hx Anxiety: Yes - SURGICAL HISTORY Hx Coronary Stent: Yes - ANESTHESIA Hx Anesthesia: Yes Hx Anesthesia Reactions: No Hx Malignant Hyperthermia: No Meds Allergies/Adverse Reactions: Allergies Allergy/AdvReac Type Severity Reaction Status Date / Time No Known Allergies Allergy Verified 10/06/16 15:34 - Medications Medications: Current Medications Alprazolam (Xanax) 0.5 mg PO TID PRN PRN Reason: Anxiety Last Admin: 10/21/16 08:48 Dose: 0.5 mg Docusate Sodium (Colace) 200 mg PO DAILY [facility] Last Admin: 10/21/16 08:49 Dose: 200 mg Ciprofloxacin (Cipro 200mg/100ml D5w) 100 mls @ 100 mls/hr IVPB Q12 [facility] Piperacillin Sod/Tazobactam (Sod 2.25 gm/ Sodium Chloride) 100 mls @ 100 mls/ hr IVPB Q6 [facility] Dextrose/Sodium Chloride (Dextrose 5%/0.45% Ns 1000 Ml) 1,000 mls @ 125 mls/hr IV .Q8H [facility] Stop: 10/22/16 11:41 Last Admin: 10/21/16 12:57 Dose: 125 mls/hr Methadone HCl (Methadone) 10 mg PO Q4 [facility] Last Admin: 10/21/16 12:57 Dose: 10 mg Metoclopramide HCl (Reglan) 10 mg IVP Q6 [facility] Last Admin: 10/21/16 08:44 Dose: 10 mg Morphine Sulfate (Morphine) 4 mg IVP Q4 PRN PRN Reason: Pain, severe (8-10) Last Admin: 10/21/16 12:57 Dose: 4 mg Ondansetron HCl (Zofran Inj) 4 mg IVP Q4 PRN PRN Reason: Nausea/Vomiting Last Admin: 10/21/16 04:23 Dose: 4 mg Oxycodone/Acetaminophen (Percocet 5/325 Mg Tab) 1 tab PO Q4 PRN PRN Reason: Pain, moderate (4-7) Stop: 10/23/16 15:46 Promethazine HCl/Codeine (Phenergan/Codeine Oral Syrup) 5 ml PO Q6 PRN PRN Reason: Cough Physical Exam - Constitutional Appears: Non-toxic, No Acute Distress - Head Exam Head Exam: NORMAL INSPECTION - Eye Exam Eye Exam: Normal appearance - ENT Exam ENT Exam: Mucous Membranes Moist - Respiratory Exam Respiratory Exam: NORMAL BREATHING PATTERN - Cardiovascular Exam Cardiovascular Exam: +S1, +S2 - GI/Abdominal Exam GI & Abdominal Exam: Soft - Extremities Exam Extremities exam: Positive for: normal inspection - Neurological Exam Neurological exam: Alert, Oriented x3 - Psychiatric Exam Psychiatric exam: Normal Mood - Skin Skin Exam: Dry Results - Vital Signs Recent Vital Signs: Last Vital Signs Temp 98.7 F 10/21/16 08:12 Pulse 70 10/21/16 08:12 Resp 20 10/21/16 08:12 BP 154/82 H 10/21/16 08:12 Pulse Ox 96 10/21/16 08:12 - Labs Result Diagrams: 10/21/16 08:37 10/21/16 08:37 Assessment & Plan - Assessment and Plan (Free Text) Assessment: JOSLYN/small cell cancer of lung/HTN/CAD Joslyn sec to prerenal sec to volume depletion from vomiting cr is improving continue iv fluids lytes reviewed would await cr to be stable and less than 1.5 before exposing to iv contrast dye
[2016-10-21] MEDS ORDERED: Piperacillin/Tazobact 3.375 GM in Sodium Chloride 0.9% 100 ML IVPB SCH (16:00)
[2016-10-21 16:11] LABS: RBC URINE 2 /hpf (0-3); URINE BILIRUBIN NEGATIVE (NEGATIVE); URINE BLOOD NEGATIVE (NEGATIVE); URINE COLOR STRAW (YELLOW); URINE GLUCOSE (UA) 50 mg/dL (Normal); URINE KETONE NEGATIVE (NEGATIVE); URINE LEUKOCYTE ESTERASE NEG Leu/uL (Negative); URINE PROTEIN NEGATIVE (NEGATIVE); URINE UROBILINOGEN 0.2-1.0 mg/dL (0.2-1.0); WBC URINE 1 /hpf (0-5)
[2016-10-21 16:15] LABS: URINE BACTERIA FEW (<OCC)
[2016-10-21 16:43] LABS: CREATININE, RANDOM URINE 79.2 mg/dL
[2016-10-21] MEDS: Ciprofloxacin 200mg/100ml D5W 100 ML IVPB SCH (20:33)
[2016-10-22] MEDS: Dextrose 5%/0.45% NS 1,000 ML IV SCH ×3 (00:03→08:56)
[2016-10-22 07:22] LABS: BASO # 0.1 K/uL (0.0-0.2); BASO % 0.4 % (0.0-2.0); EOS # 0.1 K/uL (0.0-0.7); EOS % 0.8 % (0.0-4.0); LYMPH # 1.4 K/uL (1.0-4.3); LYMPH % 8.9 % (20.0-40.0); MEAN CELL VOLUME 85.2 fl (80.0-94.0); MEAN CORPUSCULAR HGB CONC 32.9 g/dL (33.0-37.0); MONO # 1.2 K/uL (0.0-0.8); MONO % 7.8 % (0.0-10.0); NEUT # 12.6 K/uL (1.8-7.0); NEUT % 82.1 % (50.0-75.0); NRBC % 0.1 % (0.0-0.0); RED CELL DISTRIBUTION WIDTH 17.8 % (11.5-14.5); WHITE BLOOD COUNT 15.3 K/uL (4.8-10.8)
[2016-10-22 07:29] LABS: ALB/GLOB RATIO 1.5 (1.0-2.1); BILIRUBIN,TOTAL 0.4 mg/dl (0.2-1.3); CALCIUM 8.8 mg/dL (8.4-10.2); TOTAL PROTEIN 6.6 G/DL (6.3-8.2)
[2016-10-22 07:32] LABS: POTASSIUM 3.5 MMOL/L (3.6-5.0)
[2016-10-22] MEDS: Ciprofloxacin 200mg/100ml D5W 100 ML IVPB SCH ×2 (08:51→21:09)
[2016-10-22 08:56] LABS: CHLORIDE URINE 138 mmol/L (32-290)
--- NOTE | 2016-10-22 10:46 | CT ---
PROCEDURE: CT Abdomen and Pelvis with contrast HISTORY: cough and shortness of breath COMPARISON: 09/11/2016 and 08/18/2016. TECHNIQUE: CT scan of the chest and abdomen was performed without administration of intravenous contrast. Oral contrast was not administered. Coronal and sagittal reformatted images were obtained. Contrast dose: Radiation dose: Total exam DLP = 919.72 mGy-cm. This CT exam was performed using one or more of the following dose reduction techniques: Automated exposure control, adjustment of the mA and/or kV according to patient size, and/or use of iterative reconstruction technique. FINDINGS: CT CHEST:: The right MediPort terminates in the right atrium. Since the prior examination, there is interval progression of soft tissue mass in the right suprahilar region and right upper lobe measuring approximately 6.5 x 3.8 cm. The mass measures 4.7 cm in craniocaudad dimension. There is encasement and obstruction of the right upper lobe bronchus. There are also progression of nodule or densities in the right upper lobe. There is also extension of nodular densities to the peripheral right upper lobe and subpleural regions. There is mild interlobular septal thickening in the apex and peripheral subsegmental atelectasis in the right upper lobe. There is scattered centrilobular and paraseptal emphysema in the lungs. There is mild interlobular septal thickening in the posterior medial right lower lobe. There is bulky right hilar lymphadenopathy, progressed since the prior examination. There are also enlarged prevascular, right paratracheal, right tracheobronchial, sub- carinal and infrahilar lymph nodes enlarged since the prior examination, the largest sub- carinal lymph nodes measure 1.6 cm in transverse dimension. There is central high attenuation in the lymph nodes in keeping with posttreatment calcifications. There are also enlarged right supraclavicular lymph nodes. The heart is normal in size. There is a small pericardial effusion. There are atherosclerotic calcifications in the coronary arteries. The aorta is not dilated. LIVER: Allowing for noncontrast examination, there is no evidence of bulky metastatic lesions in the liver. There is no intrahepatic biliary ductal dilatation. GALLBLADDER AND BILE DUCTS: No calcified gallstones. PANCREAS: Mild diffuse atrophy of the pancreas. No gross lesion or ductal dilatation. SPLEEN: Normal in size. ADRENALS: Both adrenal glands are normal in size without discrete nodule. KIDNEYS AND URETERS: Both kidneys are normal in size without nephrolithiasis. No hydronephrosis. No solid mass. VASCULATURE: No aortic aneurysm. BOWEL: The small bowel loops are normal in caliber. There is colonic diverticulosis without CT evidence for acute diverticulitis. PERITONEUM: No free fluid. No free air. LYMPH NODES: No enlarged lymph nodes. BONES: There is a fracture deformity in the left lateral 6th rib. There are no destructive bony lesions. OTHER FINDINGS: There is a small sliding hiatal hernia. IMPRESSION: Interval progression of right suprahilar and upper lobe mass with encasement and obstruction of the right upper lobe bronchus progression of bulky mediastinal, hilar, infrahilar and subcarinal lymphadenopathy. Small pericardial effusion with
--- NOTE | 2016-10-22 11:27 | CP.PCM.PN ---
Subjective - Date & Time of Evaluation Date of Evaluation: 10/22/16 Time of Evaluation: 11:26 - Subjective Subjective: No significant changes reported clinically Vital sign noted to be stable Objective - Vital Signs/Intake and Output Vital Signs (last 24 hours): Temp Pulse Resp BP Pulse Ox 98.4 F 71 20 154/82 H 97 10/22/16 08:27 10/22/16 08:27 10/22/16 08:27 10/22/16 08:27 10/22/16 08:27 - Medications Medications: Current Medications Alprazolam (Xanax) 0.5 mg PO TID PRN PRN Reason: Anxiety Last Admin: 10/21/16 21:30 Dose: 0.5 mg Docusate Sodium (Colace) 200 mg PO DAILY [facility] Last Admin: 10/22/16 08:51 Dose: 200 mg Heparin Sodium (Porcine) (Heparin) 5,000 units SC Q12 [facility] PRN Reason: Protocol Ciprofloxacin (Cipro 200mg/100ml D5w) 100 mls @ 100 mls/hr IVPB Q12 [facility] Last Admin: 10/22/16 08:51 Dose: 100 mls/hr Piperacillin Sod/Tazobactam (Sod 2.25 gm/ Sodium Chloride) 100 mls @ 100 mls/ hr IVPB Q6 [facility] Last Admin: 10/22/16 09:00 Dose: 100 mls/hr Dextrose/Sodium Chloride (Dextrose 5%/0.45% Ns 1000 Ml) 1,000 mls @ 125 mls/hr IV .Q8H [facility] Stop: 10/22/16 11:41 Last Admin: 10/22/16 08:56 Dose: 125 mls/hr Methadone HCl (Methadone) 10 mg PO Q4 [facility] Last Admin: 10/22/16 09:00 Dose: 10 mg Metoclopramide HCl (Reglan) 10 mg IVP Q6 [facility] Last Admin: 10/22/16 04:14 Dose: Not Given Morphine Sulfate (Morphine) 4 mg IVP Q4 PRN PRN Reason: Pain, severe (8-10) Last Admin: 10/22/16 08:50 Dose: 4 mg Ondansetron HCl (Zofran Inj) 4 mg IVP Q4 PRN PRN Reason: Nausea/Vomiting Last Admin: 10/21/16 04:23 Dose: 4 mg Oxycodone/Acetaminophen (Percocet 5/325 Mg Tab) 1 tab PO Q4 PRN PRN Reason: Pain, moderate (4-7) Stop: 10/23/16 15:46 Pantoprazole Sodium (Protonix Inj) 40 mg IVP DAILY [facility] Promethazine HCl/Codeine (Phenergan/Codeine Oral Syrup) 5 ml PO Q6 PRN PRN Reason: Cough - Labs Labs: 10/22/16 06:00 10/22/16 06:00 - Constitutional Appears: No Acute Distress - Respiratory Exam Respiratory Exam: absent: Chest Wall Tenderness - Cardiovascular Exam Cardiovascular Exam: absent: JVD, Rubs - Extremities Exam Extremities Exam: absent: Calf Tenderness - Back Exam Back Exam: absent: CVA tenderness (L), CVA tenderness (R) - Neurological Exam Neurological Exam: Alert Assessment and Plan (1) JOSLYN (acute kidney injury) Assessment & Plan: JOSLYN/small cell cancer of lung/HTN/CAD Joslyn sec to prerenal sec to volume depletion from vomiting Continue gentle hydration Status: Acute (2) Lung mass Status: Acute
--- NOTE | 2016-10-22 15:10 | CP.PCM.PN ---
Subjective - Date & Time of Evaluation Date of Evaluation: 10/22/16 Time of Evaluation: 11:00 - Subjective Subjective: F/U F/U Vomiting/Nausea. Pt with nausea, vomiting, unable to have blind diet, c/o of increased pain in chest wall. Objective - Vital Signs/Intake and Output Vital Signs (last 24 hours): Temp Pulse Resp BP Pulse Ox 98.4 F 71 20 154/82 H 97 10/22/16 08:27 10/22/16 08:27 10/22/16 08:27 10/22/16 08:27 10/22/16 08:27 - Medications Medications: Current Medications Alprazolam (Xanax) 0.5 mg PO TID PRN PRN Reason: Anxiety Last Admin: 10/22/16 13:02 Dose: 0.5 mg Docusate Sodium (Colace) 200 mg PO DAILY [facility] Last Admin: 10/22/16 08:51 Dose: 200 mg Heparin Sodium (Porcine) (Heparin) 5,000 units SC Q12 [facility] PRN Reason: Protocol Last Admin: 10/22/16 13:02 Dose: 5,000 units Ciprofloxacin (Cipro 200mg/100ml D5w) 100 mls @ 100 mls/hr IVPB Q12 [facility] Last Admin: 10/22/16 08:51 Dose: 100 mls/hr Piperacillin Sod/Tazobactam (Sod 2.25 gm/ Sodium Chloride) 100 mls @ 100 mls/ hr IVPB Q6 [facility] Last Admin: 10/22/16 09:00 Dose: 100 mls/hr Methadone HCl (Methadone) 10 mg PO Q4 [facility] Last Admin: 10/22/16 13:07 Dose: 10 mg Metoclopramide HCl (Reglan) 10 mg IVP Q6 [facility] Last Admin: 10/22/16 13:07 Dose: Not Given Morphine Sulfate (Morphine) 4 mg IVP Q4 PRN PRN Reason: Pain, severe (8-10) Last Admin: 10/22/16 12:58 Dose: 4 mg Ondansetron HCl (Zofran Inj) 4 mg IVP Q4 PRN PRN Reason: Nausea/Vomiting Last Admin: 10/21/16 04:23 Dose: 4 mg Oxycodone/Acetaminophen (Percocet 5/325 Mg Tab) 1 tab PO Q4 PRN PRN Reason: Pain, moderate (4-7) Stop: 10/23/16 15:46 Pantoprazole Sodium (Protonix Inj) 40 mg IVP DAILY [facility] Last Admin: 10/22/16 13:02 Dose: 40 mg Promethazine HCl/Codeine (Phenergan/Codeine Oral Syrup) 5 ml PO Q6 PRN PRN Reason: Cough - Labs Labs: 10/22/16 06:00 10/22/16 06:00 - Constitutional Appears: No Acute Distress, Chronically Ill - Head Exam Head Exam: NORMAL INSPECTION - Eye Exam Eye Exam: PERRL - ENT Exam ENT Exam: Normal Exam - Neck Exam Neck Exam: Normal Inspection - Respiratory Exam Respiratory Exam: NORMAL BREATHING PATTERN - Cardiovascular Exam Cardiovascular Exam: REGULAR RHYTHM Additional comments: Tenderness R-L anterior chest wall, tenderness R posterior chest wall. - GI/Abdominal Exam GI & Abdominal Exam: Soft, Tenderness (mild periumbilical), Normal Bowel Sounds - Extremities Exam Extremities Exam: Normal Inspection - Back Exam Back Exam: tenderness (L-S) - Neurological Exam Neurological Exam: Alert, Oriented x3. absent: Motor Sensory Deficit - Psychiatric Exam Psychiatric exam: Anxious - Skin Skin Exam: Normal Color, Warm Assessment and Plan (1) Severe nausea and vomiting Status: Acute (2) Neoplasm of lung, upper lobe, malignant Status: Acute (3) Malignant neoplasm metastatic to liver Status: Acute (4) GORDY (acute kidney injury) Status: Acute (5) Chronic lumbosacral pain Status: Chronic (6) HTN (hypertension) Status: Chronic (7) Anxiety Status: Chronic - Assessment and Plan (Free Text) Plan: CT scan: Progression of R suprahilar and upper lobe mass with encasement and obstruction of the RUL bronchus, progression of bulky mediastinal, hilar, infrahilar and subcarinal lymphadenopathy. Metastasis are growing. Continue Zosyn, Cipro, Methadone and rest of medications.
[2016-10-23 06:03] LABS: HEMATOCRIT 26.1 % (35.0-51.0); MEAN CORPUSCULAR HEMOGLOBIN 28.1 pg (27.0-31.0); RED CELL DISTRIBUTION WIDTH 17.4 % (11.5-14.5); WHITE BLOOD COUNT 11.9 K/uL (4.8-10.8)
[2016-10-23 06:11] LABS: CALCIUM 7.9 mg/dL (8.4-10.2); POTASSIUM 2.9 MMOL/L (3.6-5.0)
[2016-10-23] MEDS ORDERED: Potassium Chloride 20 mEq ER Tab PO STA (08:15)
[2016-10-23] MEDS: Ciprofloxacin 200mg/100ml D5W 100 ML IVPB SCH ×2 (08:34→20:50)
--- NOTE | 2016-10-23 08:46 | CP.PCM.PN ---
Subjective - Date & Time of Evaluation Date of Evaluation: 10/23/16 Time of Evaluation: 08:43 - Subjective Subjective: Pt is calmer today/The CT scan showed increase in th size of the hilar and suprahilar mass, There is encasement of the right main bronchus. I feel it would be a good idea to give him RT at this time. I have spoken to the rad oncologist Dr Bird, and he will be evaluated today Objective - Vital Signs/Intake and Output Vital Signs (last 24 hours): Temp Pulse Resp BP Pulse Ox 98.4 F 59 L 20 172/91 H 97 10/23/16 07:35 10/23/16 07:35 10/23/16 07:35 10/23/16 07:35 10/23/16 07:35 - Medications Medications: Current Medications Alprazolam (Xanax) 0.5 mg PO TID PRN PRN Reason: Anxiety Last Admin: 10/23/16 00:20 Dose: 0.5 mg Calcium Gluconate (Calcium Gluconate) 500 mg PO BID [facility] Docusate Sodium (Colace) 200 mg PO DAILY [facility] Last Admin: 10/23/16 08:33 Dose: 200 mg Heparin Sodium (Porcine) (Heparin) 5,000 units SC Q12 [facility] PRN Reason: Protocol Last Admin: 10/23/16 08:33 Dose: 5,000 units Hydromorphone HCl (Dilaudid) 4 mg IVP Q4 PRN PRN Reason: Pain, severe (8-10) Last Admin: 10/23/16 08:28 Dose: 4 mg Ciprofloxacin (Cipro 200mg/100ml D5w) 100 mls @ 100 mls/hr IVPB Q12 [facility] Last Admin: 10/23/16 08:34 Dose: 100 mls/hr Piperacillin Sod/Tazobactam (Sod 2.25 gm/ Sodium Chloride) 100 mls @ 100 mls/ hr IVPB Q6 [facility] Last Admin: 10/23/16 04:34 Dose: 100 mls/hr Potassium Chloride/Dextrose/Sod Cl (Potassium Chl 40 Meq In D5-1/2ns) 1,000 mls @ 125 mls/hr IV .Q8H [facility] Stop: 10/24/16 07:17 Methadone HCl (Methadone) 10 mg PO Q4 [facility] Last Admin: 10/23/16 08:33 Dose: 10 mg Metoclopramide HCl (Reglan) 10 mg IVP Q6 [facility] Last Admin: 10/23/16 04:57 Dose: 10 mg Ondansetron HCl (Zofran Inj) 4 mg IVP Q4 PRN PRN Reason: Nausea/Vomiting Last Admin: 10/21/16 04:23 Dose: 4 mg Oxycodone/Acetaminophen (Percocet 5/325 Mg Tab) 1 tab PO Q4 PRN PRN Reason: Pain, moderate (4-7) Stop: 10/23/16 15:46 Pantoprazole Sodium (Protonix Inj) 40 mg IVP DAILY [facility] Last Admin: 10/23/16 08:29 Dose: 40 mg Promethazine HCl/Codeine (Phenergan/Codeine Oral Syrup) 5 ml PO Q6 PRN PRN Reason: Cough - Labs Labs: 10/23/16 04:20 10/23/16 04:20
--- NOTE | 2016-10-23 09:02 | PQF GENQUE ---
This form is a permanent part of the medical record 10/23/16 Dr. Saxena, Would you please clarify the possible etiology of the nausea and vomiting if known. Patient with a history of Small Cell Lung Cancer who is on Chemotherapy presents with nausea and vomiting. Found to have Acute Kidney Injury. Treated with Protonix, Reglan and Zofran. Clarification of your documentation is requested to better reflect the severity of illness and intensity of treatment of your patient. PHYSICIAN'S RESPONSE Based on your medical judgment of the clinical indicators outlined above please clarify the following: [] Practitioner response [] If unable to determine, please check the box, sign and date. Present On Admission (POA) Indicator: [] Present at the time of admission [] Not present at the time of admission [] Clinically Undetermined In responding to this query, please exercise your independent professional judgment. The fact that a question is asked does not imply that any particular answer is desired or expected. Thank you for your clarification on this documentation. If you have any questions please call:ext [phone] * Thank you, Omaira Candelaria RN CD MTDD
--- NOTE | 2016-10-23 09:12 | PQF GENQUE ---
This form is a permanent part of the medical record 10/23/16 Dr. Saxena, Please clarify after workup if the Pneumonia is ruled in or out. If Pneumonia is ruled in please clarify the possible type. Patient with a history of Small Cell Lung Cancer presents with nausea, vomiting ( small amount of blood noted) and abdominal pain. H&P with documentation that the CXR showed progressive opacification of RUL, could represent PNA. Empiric coverage with Zosyn and Cipro until Pneumonia is ruled out. WBC 7.4 with a L shift which have increased to 15.3 . Afebrile. Clarification of your documentation is requested to better reflect the severity of illness and intensity of treatment of your patient. PHYSICIAN'S RESPONSE Based on your medical judgment of the clinical indicators outlined above please clarify the following: [] Practitioner response [] If unable to determine, please check the box, sign and date. Present On Admission (POA) Indicator: [] Present at the time of admission [] Not present at the time of admission [] Clinically Undetermined In responding to this query, please exercise your independent professional judgment. The fact that a question is asked does not imply that any particular answer is desired or expected. Thank you for your clarification on this documentation. If you have any questions please call: extension [phone] * Thank you, Omaira Candelaria RN [facility]
--- NOTE | 2016-10-23 09:29 | PQF ANEMIA ---
This form is a permanent part of the medical record 10/23/16 Dr. Saxena, Would you please clarify the TYPE of ANEMIA if known. Patient with Small Cell Lung Cancer with metastasis who is undergoing Chemotherapy has an H&H ranging between 8.2/25.6- 9.9/30. MCV and MCH normal .There is documentation of Anemia with daily CBC monitoring. Clarification of your documentation is requested to better reflect the severity of illness and intensity of treatment of your patient. Indicators present [x] Anemia [] Drop in H&H from []___ to []___ [] Hypotension [] GI Bleed [] Transfusion(s) [] Acute bleed other sites [] Tachycardia [] Surgical Procedure Blood Loss (expected not a complication) Other:[] Location in the medical record that reflects the above clinical findings: [] Treatment Provided: [] PHYSICIAN'S RESPONSE Based on your medical judgment of the clinical indicators outlined above, are you treating this patient for a known or suspected: [] Acute blood loss anemia [] Chronic blood loss anemia [] Acute on Chronic blood loss anemia [] Anemia due to malignancy [] Anemia due to chemotherapy or radiation therapy [] Anemia of Chronic Disease, please specify: [] [] Other, please indicate type of anemia []____ [] If Unable to Determine, please check the box, sign and date. Present On Admission (POA) Indicator: [] Present at the time of admission [] Not present at the time of admission [] Clinically Undetermined In responding to this query, please exercise your independent professional judgment. The fact that a question is asked does not imply that any particular answer is desired or expected. Thank you for your clarification on this documentation. If you have any questions please call:ext [phone] * Thank you, Omaira Candelaria RN CDMP MTDD
[2016-10-23] MEDS: Potassium Chl 40 mEq in D5-1/2 1,000 ML IV SCH ×2 (09:30→15:32)
[2016-10-23] MEDS ORDERED: Potassium Chloride 20 mEq ER Tab PO ONE (10:19)
--- NOTE | 2016-10-23 10:48 | CP.PCM.CON ---
History of Present Illness - History of Present Illness History of Present Illness: Mr Rubio is a 56 year old male with stage IV lung cancer. Shiva kemp was initially diagnosed in May 2016 with right sided chest discomfort. A CT of the chest on May 22, 2016 revealed a large right hilar mass with extensive mediastinal adenopathy. A CT of the chest, abdomen and pelvis revealed extensive right hilar and mediastinal adenopathy as well as liver metastases. A CT of the head without contrast on May 23, 2016 revealed no acute findings. He had a right upper lung biopsy on May 26, 2016 which confirmed small cell lung cancer. He was started on cisplatin and VP16. A repeat CT of the chest, abdomen and pelvis on August 18, 2016 revealed near complete resolution of the right hilar and suprahilar adenopathy. His last chemotherapy was approximately 2 weeks ago. He presented to [facility] with a 3 day history of vomiting as well as persistent left sided chest pain. A CT of the chest, abdomen and pelvis on October 22, 2016 revealed interval progression of a soft tissue mass in the right suprahilar region and right upper lobe measuring 6.5 x 3.8cm with encasement and obstruction of the right upper lobe bronchus and bulky hilar adenopathy. He is referred to us for consideration of palliative radiation. Review of Systems - Constitutional Constitutional: Weight Loss - Cardiovascular Cardiovascular: Chest Pain - Neurological Neurological: Headaches Past Patient History - Infectious Disease Hx of Infectious Diseases: None - Past Medical History & Family History Past Medical History?: Yes - Past Social History Smoking Status: Former Smoker Alcohol: None Drugs: Denies Home Situation {Lives}: Alone - CARDIAC Hx Cardiac Disorders: Yes Hx Hypercholesterolemia: Yes Hx Hypertension: Yes - PULMONARY Hx Respiratory Disorders: Yes Hx Bronchitis: Yes Hx Lung Cancer: Yes - NEUROLOGICAL Hx Neurological Disorder: No - HEENT Hx HEENT Problems: No - RENAL Hx Chronic Kidney Disease: No - ENDOCRINE/METABOLIC Hx Endocrine Disorders: No - HEMATOLOGICAL/ONCOLOGICAL Hx Blood Disorders: Yes Hx AIDS: No Hx Chemotherapy: Yes Hx Hepatitis C: Yes Hx Human Immunodeficiency Virus (HIV): No - INTEGUMENTARY Hx Dermatological Problems: No - MUSCULOSKELETAL/RHEUMATOLOGICAL Hx Musculoskeletal Disorders: Yes Hx Back Pain: Yes Hx Fractures: Yes - GASTROINTESTINAL Hx Gastrointestinal Disorders: Yes Hx Hemorrhoids: Yes - GENITOURINARY/GYNECOLOGICAL Hx Genitourinary Disorders: No - PSYCHIATRIC Hx Psychophysiologic Disorder: Yes Hx Anxiety: Yes - SURGICAL HISTORY Hx Surgeries: Yes Hx Coronary Stent: Yes - ANESTHESIA Hx Anesthesia: Yes Hx Anesthesia Reactions: No Hx Malignant Hyperthermia: No Meds Allergies/Adverse Reactions: Allergies Allergy/AdvReac Type Severity Reaction Status Date / Time No Known Allergies Allergy Verified 10/06/16 15:34 - Medications Medications: Current Medications Alprazolam (Xanax) 0.5 mg PO TID PRN PRN Reason: Anxiety Last Admin: 10/23/16 00:20 Dose: 0.5 mg Calcium Gluconate (Calcium Gluconate) 500 mg PO BID [facility] Docusate Sodium (Colace) 200 mg PO DAILY [facility] Last Admin: 10/23/16 08:33 Dose: 200 mg Heparin Sodium (Porcine) (Heparin) 5,000 units SC Q12 [facility] PRN Reason: Protocol Last Admin: 10/23/16 08:33 Dose: 5,000 units Hydromorphone HCl (Dilaudid) 4 mg IVP Q4 PRN PRN Reason: Pain, severe (8-10) Last Admin: 10/23/16 08:28 Dose: 4 mg Ciprofloxacin (Cipro 200mg/100ml D5w) 100 mls @ 100 mls/hr IVPB Q12 [facility] Last Admin: 10/23/16 08:34 Dose: 100 mls/hr Piperacillin Sod/Tazobactam (Sod 2.25 gm/ Sodium Chloride) 100 mls @ 100 mls/ hr IVPB Q6 [facility] Last Admin: 10/23/16 09:15 Dose: 100 mls/hr Potassium Chloride/Dextrose/Sod Cl (Potassium Chl 40 Meq In D5-1/2ns) 1,000 mls @ 125 mls/hr IV .Q8H [facility] Stop: 10/24/16 07:17 Last Admin: 10/23/16 09:30 Dose: 125 mls/hr Methadone HCl (Methadone) 10 mg PO Q4 [facility] Last Admin: 10/23/16 08:33 Dose: 10 mg Metoclopramide HCl (Reglan) 10 mg IVP Q6 [facility] Last Admin: 10/23/16 09:15 Dose: 10 mg Ondansetron HCl (Zofran Inj) 4 mg IVP Q4 PRN PRN Reason: Nausea/Vomiting Last Admin: 10/21/16 04:23 Dose: 4 mg Oxycodone/Acetaminophen (Percocet 5/325 Mg Tab) 1 tab PO Q4 PRN PRN Reason: Pain, moderate (4-7) Stop: 10/23/16 15:46 Pantoprazole Sodium (Protonix Inj) 40 mg IVP DAILY [facility] Last Admin: 10/23/16 08:29 Dose: 40 mg Promethazine HCl/Codeine (Phenergan/Codeine Oral Syrup) 5 ml PO Q6 PRN PRN Reason: Cough Physical Exam - Head Exam Head Exam: NORMAL INSPECTION - Eye Exam Eye Exam: EOMI - Respiratory Exam Respiratory Exam: NORMAL BREATHING PATTERN - Cardiovascular Exam Cardiovascular Exam: REGULAR RHYTHM - GI/Abdominal Exam GI & Abdominal Exam: Normal Bowel Sounds - Neurological Exam Neurological exam: CN II-XII Intact, Oriented x3 Results - Vital Signs Recent Vital Signs: Last Vital Signs Temp 98.4 F 10/23/16 07:35 Pulse 59 L 10/23/16 07:35 Resp 20 10/23/16 07:35 BP 159/87 H 10/23/16 09:21 Pulse Ox 97 10/23/16 07:35 - Labs Result Diagrams: 10/23/16 04:20 10/23/16 04:20 Labs: Laboratory Results - last 24 hr 10/23/16 10/23/16 04:20 04:20 WBC 11.9 H RBC 3.07 L Hgb 8.6 L Hct 26.1 L MCV 85.0 MCH 28.1 MCHC 33.0 RDW 17.4 H Plt Count 180 Sodium 136 Potassium 2.9 L Chloride 98 Carbon Dioxide 27 Anion Gap 14 BUN 9 Creatinine 1.6 H Est GFR ( Amer) 54 Est GFR (Non-Af Amer) 45 Random Glucose 161 H Calcium 7.9 L Assessment & Plan - Assessment and Plan (Free Text) Assessment: Mr Rubio is a 56 year old male with stage IV small cell lung cancer on chemotherapy who recently was admitted with nausea, vomiting as well as chest discomfort. Imaging studies shows recurrence of the small cell lung mass with obstruction of the airways. We would concur that he would benefit from palliative radiation therapy for local control. We spoke about the risks and benefits of radiation therapy. Informed consent was obtained. We will simulate him and begin as soon as possible. He did not want to start immediately so we will begin on Thursday. For his nausea nd head pressure, we would order a MRI of the brain given his small cell lung cancer history to complete his restaging evaluation given the high propensity of these cancers to spread to the brain, however he is claustrophobic and needs an open MRI. Unfortunately , he has renal insufficiency and his GFR will preclude contrast so we will order CT of the head without contrast. He is aware that if there are lesions in the brain, he will need palliative whole brain radiation.
--- NOTE | 2016-10-23 11:15 | CP.PCM.PN ---
Subjective - Date & Time of Evaluation Date of Evaluation: 10/23/16 Time of Evaluation: 11:14 - Subjective Subjective: Clinically no significant changes Patient went for radiation therapy Serum potassium is low given potassium chloride oral and intravenously Serum creatinine coming down slightly Continue to monitor Objective - Vital Signs/Intake and Output Vital Signs (last 24 hours): Temp Pulse Resp BP Pulse Ox 98.4 F 59 L 20 159/87 H 97 10/23/16 07:35 10/23/16 07:35 10/23/16 07:35 10/23/16 09:21 10/23/16 07:35 - Medications Medications: Current Medications Alprazolam (Xanax) 0.5 mg PO TID PRN PRN Reason: Anxiety Last Admin: 10/23/16 00:20 Dose: 0.5 mg Calcium Carbonate (Oscal) 500 mg PO BID [facility] Docusate Sodium (Colace) 200 mg PO DAILY [facility] Last Admin: 10/23/16 08:33 Dose: 200 mg Heparin Sodium (Porcine) (Heparin) 5,000 units SC Q12 [facility] PRN Reason: Protocol Last Admin: 10/23/16 08:33 Dose: 5,000 units Hydromorphone HCl (Dilaudid) 4 mg IVP Q4 PRN PRN Reason: Pain, severe (8-10) Last Admin: 10/23/16 08:28 Dose: 4 mg Ciprofloxacin (Cipro 200mg/100ml D5w) 100 mls @ 100 mls/hr IVPB Q12 [facility] Last Admin: 10/23/16 08:34 Dose: 100 mls/hr Piperacillin Sod/Tazobactam (Sod 2.25 gm/ Sodium Chloride) 100 mls @ 100 mls/ hr IVPB Q6 [facility] Last Admin: 10/23/16 09:15 Dose: 100 mls/hr Potassium Chloride/Dextrose/Sod Cl (Potassium Chl 40 Meq In D5-1/2ns) 1,000 mls @ 125 mls/hr IV .Q8H [facility] Stop: 10/24/16 07:17 Last Admin: 10/23/16 09:30 Dose: 125 mls/hr Methadone HCl (Methadone) 10 mg PO Q4 [facility] Last Admin: 10/23/16 08:33 Dose: 10 mg Metoclopramide HCl (Reglan) 10 mg IVP Q6 [facility] Last Admin: 10/23/16 09:15 Dose: 10 mg Ondansetron HCl (Zofran Inj) 4 mg IVP Q4 PRN PRN Reason: Nausea/Vomiting Last Admin: 10/21/16 04:23 Dose: 4 mg Oxycodone/Acetaminophen (Percocet 5/325 Mg Tab) 1 tab PO Q4 PRN PRN Reason: Pain, moderate (4-7) Stop: 10/23/16 15:46 Pantoprazole Sodium (Protonix Inj) 40 mg IVP DAILY [facility] Last Admin: 10/23/16 08:29 Dose: 40 mg Promethazine HCl/Codeine (Phenergan/Codeine Oral Syrup) 5 ml PO Q6 PRN PRN Reason: Cough - Labs Labs: 10/23/16 04:20 10/23/16 04:20
--- NOTE | 2016-10-23 14:25 | CT ---
PROCEDURE: CT HEAD WITHOUT CONTRAST. HISTORY: small cell w/ nausea headache (can't get MRI) COMPARISON: None available. TECHNIQUE: Axial computed tomography images were obtained through the head/brain without intravenous contrast. Radiation dose: Total exam DLP = 884 mGy-cm. This CT exam was performed using one or more of the following dose reduction techniques: Automated exposure control, adjustment of the mA and/or kV according to patient size, and/or use of iterative reconstruction technique. FINDINGS: HEMORRHAGE: No intracranial hemorrhage. BRAIN: Stable normal density seen within the ponce and white matter structures above or below the tentorium including differentiation between the cortex and medullary parenchyma. No mass effect is appreciated and there are no suspicious extra-axial findings grossly. VENTRICLES: Unremarkable. No hydrocephalus. CALVARIUM: Unremarkable. PARANASAL SINUSES: Unremarkable as visualized. No significant inflammatory changes. MASTOID AIR CELLS: Unremarkable as visualized. No inflammatory changes. OTHER FINDINGS: None. IMPRESSION: Stable unremarkable unenhanced head CT. Further characterization can provided by contrast CT if clinically warranted this patient prior history of small cell lung cancer.
[2016-10-24] MEDS: Potassium Chl 40 mEq in D5-1/2 1,000 ML IV SCH ×2 (03:08→13:00)
[2016-10-24 07:09] LABS: HEMATOCRIT 26.7 % (35.0-51.0); MEAN CORPUSCULAR HEMOGLOBIN 28.3 pg (27.0-31.0); MEAN CORPUSCULAR HGB CONC 33.3 g/dL (33.0-37.0); RED CELL DISTRIBUTION WIDTH 17.7 % (11.5-14.5); WHITE BLOOD COUNT 9.1 K/uL (4.8-10.8)
[2016-10-24 07:16] LABS: CALCIUM 8.1 mg/dL (8.4-10.2); POTASSIUM 3.7 MMOL/L (3.6-5.0)
[2016-10-24] MEDS: Ciprofloxacin 200mg/100ml D5W 100 ML IVPB SCH ×2 (08:37→20:40)
--- NOTE | 2016-10-24 09:18 | CP.PCM.PN ---
Subjective - Date & Time of Evaluation Date of Evaluation: 10/24/16 Time of Evaluation: 09:16 - Subjective Subjective: Pt claims he is feeling better today. No more vomiting, and appetite is better.No more hemoptysis. He was seen by Dr Bird in radiation [id number] in [place], and is to start RT on thursday. Objective - Vital Signs/Intake and Output Vital Signs (last 24 hours): Temp Pulse Resp BP Pulse Ox 98.3 F 72 20 165/87 H 99 10/24/16 07:39 10/24/16 07:39 10/24/16 07:39 10/24/16 07:39 10/24/16 07:39 - Medications Medications: Current Medications Alprazolam (Xanax) 0.5 mg PO TID PRN PRN Reason: Anxiety Last Admin: 10/24/16 06:30 Dose: 0.5 mg Calcium Carbonate (Oscal) 500 mg PO BID [facility] Last Admin: 10/24/16 08:39 Dose: 500 mg Docusate Sodium (Colace) 200 mg PO DAILY [facility] Last Admin: 10/24/16 08:37 Dose: 200 mg Heparin Sodium (Porcine) (Heparin) 5,000 units SC Q12 [facility] PRN Reason: Protocol Last Admin: 10/24/16 08:38 Dose: 5,000 units Hydromorphone HCl (Dilaudid) 4 mg IVP Q4 PRN PRN Reason: Pain, severe (8-10) Last Admin: 10/24/16 08:31 Dose: 4 mg Ciprofloxacin (Cipro 200mg/100ml D5w) 100 mls @ 100 mls/hr IVPB Q12 [facility] Last Admin: 10/24/16 08:37 Dose: 100 mls/hr Piperacillin Sod/Tazobactam (Sod 2.25 gm/ Sodium Chloride) 100 mls @ 100 mls/ hr IVPB Q6 [facility] Last Admin: 10/24/16 04:42 Dose: 100 mls/hr Methadone HCl (Methadone) 10 mg PO Q4 [facility] Last Admin: 10/24/16 08:38 Dose: 10 mg Metoclopramide HCl (Reglan) 10 mg IVP Q6 [facility] Last Admin: 10/24/16 04:42 Dose: Not Given Ondansetron HCl (Zofran Inj) 4 mg IVP Q4 PRN PRN Reason: Nausea/Vomiting Last Admin: 10/21/16 04:23 Dose: 4 mg Pantoprazole Sodium (Protonix Inj) 40 mg IVP DAILY [facility] Last Admin: 10/24/16 08:39 Dose: 40 mg Promethazine HCl/Codeine (Phenergan/Codeine Oral Syrup) 5 ml PO Q6 PRN PRN Reason: Cough - Labs Labs: 10/24/16 06:30 10/24/16 06:30
--- NOTE | 2016-10-24 13:16 | CP.PCM.PN ---
Subjective - Date & Time of Evaluation Date of Evaluation: 10/24/16 Time of Evaluation: 13:14 - Subjective Subjective: Patient feeling much better no vomiting reported Abdomen less tenderness Objective - Vital Signs/Intake and Output Vital Signs (last 24 hours): Temp Pulse Resp BP Pulse Ox 98.3 F 72 20 165/87 H 99 10/24/16 07:39 10/24/16 07:39 10/24/16 07:39 10/24/16 07:39 10/24/16 07:39 - Medications Medications: Current Medications Alprazolam (Xanax) 0.5 mg PO TID PRN PRN Reason: Anxiety Last Admin: 10/24/16 06:30 Dose: 0.5 mg Calcium Carbonate (Oscal) 500 mg PO BID [facility] Last Admin: 10/24/16 08:39 Dose: 500 mg Docusate Sodium (Colace) 200 mg PO DAILY [facility] Last Admin: 10/24/16 08:37 Dose: 200 mg Heparin Sodium (Porcine) (Heparin) 5,000 units SC Q12 [facility] PRN Reason: Protocol Last Admin: 10/24/16 08:38 Dose: 5,000 units Hydromorphone HCl (Dilaudid) 4 mg IVP Q4 PRN PRN Reason: Pain, severe (8-10) Last Admin: 10/24/16 12:30 Dose: 4 mg Ciprofloxacin (Cipro 200mg/100ml D5w) 100 mls @ 100 mls/hr IVPB Q12 [facility] Last Admin: 10/24/16 08:37 Dose: 100 mls/hr Piperacillin Sod/Tazobactam (Sod 2.25 gm/ Sodium Chloride) 100 mls @ 100 mls/ hr IVPB Q6 [facility] Last Admin: 10/24/16 09:32 Dose: 100 mls/hr Potassium Chloride/Dextrose/Sod Cl (Potassium Chl 40 Meq In D5-1/2ns) 1,000 mls @ 125 mls/hr IV .Q8H [facility] Stop: 10/25/16 12:19 Methadone HCl (Methadone) 10 mg PO Q4 [facility] Last Admin: 10/24/16 12:30 Dose: 10 mg Metoclopramide HCl (Reglan) 10 mg IVP Q6 [facility] Last Admin: 10/24/16 10:00 Dose: 10 mg Ondansetron HCl (Zofran Inj) 4 mg IVP Q4 PRN PRN Reason: Nausea/Vomiting Last Admin: 10/21/16 04:23 Dose: 4 mg Pantoprazole Sodium (Protonix Inj) 40 mg IVP DAILY [facility] Last Admin: 10/24/16 08:39 Dose: 40 mg Promethazine HCl/Codeine (Phenergan/Codeine Oral Syrup) 5 ml PO Q6 PRN PRN Reason: Cough - Labs Labs: 10/24/16 06:30 10/24/16 06:30 - Constitutional Appears: No Acute Distress - ENT Exam ENT Exam: Mucous Membranes Moist - Respiratory Exam Respiratory Exam: NORMAL BREATHING PATTERN. absent: Chest Wall Tenderness - GI/Abdominal Exam GI & Abdominal Exam: Soft, Normal Bowel Sounds - Extremities Exam Extremities Exam: absent: Calf Tenderness - Back Exam Back Exam: absent: CVA tenderness (L), CVA tenderness (R) - Neurological Exam Neurological Exam: Alert Assessment and Plan (1) GORDY (acute kidney injury) Assessment & Plan: Acute kidney injury continue to monitor stable serum creatinine more or less Hypokalemia corrected today Repeat BMP in a.m. Continue gentle hydration Status: Acute (2) Lung mass Status: Acute
--- NOTE | 2016-10-24 16:18 | CP.PCM.CON ---
History of Present Illness - History of Present Illness History of Present Illness: 56 yo man known to me from previous admission has lung CA and is referred for pain management. Patient's home regimen includes Methadone 10mg q4h and Dilaudid 4mg in between. This is a highly unusal regimen, but patient claims good results with it and no side effects. Since admission, he's been receiving Methadone 10mg q4h and Dilaudid 4mg IV PRN, which he has tolerated as well. At the bedside, he was resting comfortably, but readily arousable. He insists on remaining with the current regimen. Past Patient History - Infectious Disease Hx of Infectious Diseases: None - Past Medical History & Family History Past Medical History?: Yes - Past Social History Smoking Status: Former Smoker Alcohol: None Drugs: Denies Home Situation {Lives}: Alone - CARDIAC Hx Cardiac Disorders: Yes Hx Hypercholesterolemia: Yes Hx Hypertension: Yes - PULMONARY Hx Respiratory Disorders: Yes Hx Bronchitis: Yes Hx Lung Cancer: Yes - NEUROLOGICAL Hx Neurological Disorder: No - HEENT Hx HEENT Problems: No - RENAL Hx Chronic Kidney Disease: No - ENDOCRINE/METABOLIC Hx Endocrine Disorders: No - HEMATOLOGICAL/ONCOLOGICAL Hx Blood Disorders: Yes Hx AIDS: No Hx Chemotherapy: Yes Hx Hepatitis C: Yes Hx Human Immunodeficiency Virus (HIV): No - INTEGUMENTARY Hx Dermatological Problems: No - MUSCULOSKELETAL/RHEUMATOLOGICAL Hx Musculoskeletal Disorders: Yes Hx Back Pain: Yes Hx Fractures: Yes - GASTROINTESTINAL Hx Gastrointestinal Disorders: Yes Hx Hemorrhoids: Yes - GENITOURINARY/GYNECOLOGICAL Hx Genitourinary Disorders: No - PSYCHIATRIC Hx Psychophysiologic Disorder: Yes Hx Anxiety: Yes - SURGICAL HISTORY Hx Surgeries: Yes Hx Coronary Stent: Yes - ANESTHESIA Hx Anesthesia: Yes Hx Anesthesia Reactions: No Hx Malignant Hyperthermia: No Meds Allergies/Adverse Reactions: Allergies Allergy/AdvReac Type Severity Reaction Status Date / Time No Known Allergies Allergy Verified 10/06/16 15:34 - Medications Medications: Current Medications Alprazolam (Xanax) 0.5 mg PO TID PRN PRN Reason: Anxiety Last Admin: 10/24/16 06:30 Dose: 0.5 mg Calcium Carbonate (Oscal) 500 mg PO BID [facility] Last Admin: 10/24/16 08:39 Dose: 500 mg Docusate Sodium (Colace) 200 mg PO DAILY [facility] Last Admin: 10/24/16 08:37 Dose: 200 mg Heparin Sodium (Porcine) (Heparin) 5,000 units SC Q12 [facility] PRN Reason: Protocol Last Admin: 10/24/16 08:38 Dose: 5,000 units Hydromorphone HCl (Dilaudid) 4 mg IVP Q4 PRN PRN Reason: Pain, severe (8-10) Last Admin: 10/24/16 12:30 Dose: 4 mg Ciprofloxacin (Cipro 200mg/100ml D5w) 100 mls @ 100 mls/hr IVPB Q12 [facility] Last Admin: 10/24/16 08:37 Dose: 100 mls/hr Piperacillin Sod/Tazobactam (Sod 2.25 gm/ Sodium Chloride) 100 mls @ 100 mls/ hr IVPB Q6 [facility] Last Admin: 10/24/16 09:32 Dose: 100 mls/hr Potassium Chloride/Dextrose/Sod Cl (Potassium Chl 40 Meq In D5-1/2ns) 1,000 mls @ 125 mls/hr IV .Q8H [facility] Stop: 10/25/16 12:19 Methadone HCl (Methadone) 10 mg PO Q4 [facility] Last Admin: 10/24/16 12:30 Dose: 10 mg Metoclopramide HCl (Reglan) 10 mg IVP Q6 [facility] Last Admin: 10/24/16 10:00 Dose: 10 mg Ondansetron HCl (Zofran Inj) 4 mg IVP Q4 PRN PRN Reason: Nausea/Vomiting Last Admin: 10/21/16 04:23 Dose: 4 mg Pantoprazole Sodium (Protonix Inj) 40 mg IVP DAILY [facility] Last Admin: 10/24/16 08:39 Dose: 40 mg Promethazine HCl/Codeine (Phenergan/Codeine Oral Syrup) 5 ml PO Q6 PRN PRN Reason: Cough Physical Exam - Respiratory Exam Respiratory Exam: Chest Wall Tenderness, Decreased Breath Sounds - Cardiovascular Exam Cardiovascular Exam: REGULAR RHYTHM Results - Vital Signs Recent Vital Signs: Last Vital Signs Temp 98.3 F 10/24/16 07:39 Pulse 72 10/24/16 07:39 Resp 20 10/24/16 07:39 BP 165/87 H 10/24/16 07:39 Pulse Ox 99 10/24/16 07:39 - Labs Result Diagrams: 10/24/16 06:30 10/24/16 06:30 Labs: Laboratory Results - last 24 hr 10/24/16 10/24/16 06:30 06:30 WBC 9.1 RBC 3.14 L Hgb 8.9 L Hct 26.7 L MCV 85.0 MCH 28.3 MCHC 33.3 RDW 17.7 H Plt Count 192 Sodium 138 Potassium 3.7 Chloride 100 Carbon Dioxide 29 Anion Gap 13 BUN 10 Creatinine 1.7 H Est GFR ( Amer) 50 Est GFR (Non-Af Amer) 42 Random Glucose 99 Calcium 8.1 L Assessment & Plan (1) Chest pain Assessment and Plan: 56 yo man w/ metastatic lung cancer, for palliative XRT. Pain regimen is currently a highly unsual Methadone 10mg q4h, Dilaudid 4mg IV q4h. Patient has tolerated it well thus far. - continue current regimen, as patient is a palliative care patient - Methadone should be at the most q8h, consider changing to 20mg q8h - Dilaudid 4mg IV is equivalent to 12 to 20mg PO, should wean if patient's pain is well controlled Status: Acute
--- NOTE | 2016-10-24 18:02 | CP.PCM.PN ---
Subjective - Date & Time of Evaluation Date of Evaluation: 10/24/16 Time of Evaluation: 12:10 - Subjective Subjective: F/U Lung Ca. complains of CP RL anterior Chest wall , R Scapula and intrathoracic , no N /V Objective - Vital Signs/Intake and Output Vital Signs (last 24 hours): Temp Pulse Resp BP Pulse Ox 98.3 F 65 20 166/95 H 98 10/24/16 16:50 10/24/16 16:50 10/24/16 16:50 10/24/16 16:50 10/24/16 16:50 - Medications Medications: Current Medications Alprazolam (Xanax) 0.5 mg PO TID PRN PRN Reason: Anxiety Last Admin: 10/24/16 06:30 Dose: 0.5 mg Calcium Carbonate (Oscal) 500 mg PO BID [facility] Last Admin: 10/24/16 16:37 Dose: 500 mg Docusate Sodium (Colace) 200 mg PO DAILY [facility] Last Admin: 10/24/16 08:37 Dose: 200 mg Heparin Sodium (Porcine) (Heparin) 5,000 units SC Q12 [facility] PRN Reason: Protocol Last Admin: 10/24/16 08:38 Dose: 5,000 units Hydromorphone HCl (Dilaudid) 4 mg IVP Q4 PRN PRN Reason: Pain, severe (8-10) Last Admin: 10/24/16 16:36 Dose: 4 mg Ciprofloxacin (Cipro 200mg/100ml D5w) 100 mls @ 100 mls/hr IVPB Q12 [facility] Last Admin: 10/24/16 08:37 Dose: 100 mls/hr Piperacillin Sod/Tazobactam (Sod 2.25 gm/ Sodium Chloride) 100 mls @ 100 mls/ hr IVPB Q6 [facility] Last Admin: 10/24/16 16:38 Dose: 100 mls/hr Potassium Chloride/Dextrose/Sod Cl (Potassium Chl 40 Meq In D5-1/2ns) 1,000 mls @ 125 mls/hr IV .Q8H [facility] Stop: 10/25/16 12:19 Last Admin: 10/24/16 13:00 Dose: 125 mls/hr Methadone HCl (Methadone) 10 mg PO Q4 [facility] Last Admin: 10/24/16 16:36 Dose: 10 mg Metoclopramide HCl (Reglan) 10 mg IVP Q6 [facility] Last Admin: 10/24/16 16:39 Dose: 10 mg Ondansetron HCl (Zofran Inj) 4 mg IVP Q4 PRN PRN Reason: Nausea/Vomiting Last Admin: 10/21/16 04:23 Dose: 4 mg Pantoprazole Sodium (Protonix Inj) 40 mg IVP DAILY [facility] Last Admin: 10/24/16 08:39 Dose: 40 mg Promethazine HCl/Codeine (Phenergan/Codeine Oral Syrup) 5 ml PO Q6 PRN PRN Reason: Cough - Labs Labs: 10/24/16 06:30 10/24/16 06:30 - Constitutional Appears: No Acute Distress, Chronically Ill - Head Exam Head Exam: NORMAL INSPECTION - Eye Exam Eye Exam: PERRL - ENT Exam ENT Exam: Normal Exam - Neck Exam Neck Exam: Normal Inspection - Respiratory Exam Respiratory Exam: NORMAL BREATHING PATTERN Additional comments: Chest tenderness R L anterior Chest wall , R Scapula and intrathoracic - Cardiovascular Exam Cardiovascular Exam: REGULAR RHYTHM Additional comments: Tenderness R-L anterior chest wall, tenderness R posterior chest wall. - GI/Abdominal Exam GI & Abdominal Exam: Soft, Normal Bowel Sounds. absent: Guarding, Rebound - Extremities Exam Extremities Exam: Normal Inspection - Back Exam Back Exam: tenderness (L-S) - Neurological Exam Neurological Exam: Alert, Oriented x3. absent: Motor Sensory Deficit - Psychiatric Exam Psychiatric exam: Anxious - Skin Skin Exam: Warm Assessment and Plan (1) Severe nausea and vomiting Status: Acute (2) Neoplasm of lung, upper lobe, malignant Status: Acute (3) Malignant neoplasm metastatic to liver Status: Acute (4) GORDY (acute kidney injury) Status: Acute (5) Chronic lumbosacral pain Status: Chronic (6) HTN (hypertension) Status: Chronic (7) Anxiety Status: Chronic - Assessment and Plan (Free Text) Plan: Patient went yesterday for RT consultation, to have RT next Thursday, CT Chest progression R suprahilar and RUL mass with encasement of obstruction of RUL bronchus, continue Methadone, Dilaudid and rest of treatment
--- NOTE | 2016-10-24 18:40 | CARD ---
APPROVED REPORT EKG Measurement Heart [id number] <Conclusion> Normal sinus rhythm Normal ECG
[2016-10-25] MEDS: Potassium Chl 40 mEq in D5-1/2 1,000 ML IV SCH ×2 (01:25→04:52)
[2016-10-25] MEDS: Ciprofloxacin 200mg/100ml D5W 100 ML IVPB SCH ×2 (08:39→20:09)
--- NOTE | 2016-10-25 13:04 | CP.PCM.PN ---
Subjective - Date & Time of Evaluation Date of Evaluation: 10/25/16 Time of Evaluation: 11:00 - Subjective Subjective: complains of pain R L anterior chest wall, R Scapula and intrathoracic , no N /V , poor apetite Objective - Vital Signs/Intake and Output Vital Signs (last 24 hours): Temp Pulse Resp BP Pulse Ox 98.7 F 68 20 159/89 H 98 10/25/16 08:21 10/25/16 08:21 10/25/16 08:21 10/25/16 08:21 10/25/16 08:21 - Medications Medications: Current Medications Alprazolam (Xanax) 0.5 mg PO TID PRN PRN Reason: Anxiety Last Admin: 10/25/16 08:34 Dose: 0.5 mg Calcium Carbonate (Oscal) 500 mg PO BID [facility] Last Admin: 10/25/16 08:40 Dose: 500 mg Docusate Sodium (Colace) 200 mg PO DAILY [facility] Last Admin: 10/25/16 08:39 Dose: 200 mg Heparin Sodium (Porcine) (Heparin) 5,000 units SC Q12 [facility] PRN Reason: Protocol Last Admin: 10/25/16 08:40 Dose: 5,000 units Hydromorphone HCl (Dilaudid) 4 mg IVP Q4 PRN PRN Reason: Pain, severe (8-10) Last Admin: 10/25/16 12:30 Dose: 4 mg Ciprofloxacin (Cipro 200mg/100ml D5w) 100 mls @ 100 mls/hr IVPB Q12 [facility] Last Admin: 10/25/16 08:39 Dose: 100 mls/hr Piperacillin Sod/Tazobactam (Sod 2.25 gm/ Sodium Chloride) 100 mls @ 100 mls/ hr IVPB Q6 [facility] Last Admin: 10/25/16 11:06 Dose: 100 mls/hr Methadone HCl (Methadone) 10 mg PO Q4 [facility] Last Admin: 10/25/16 12:30 Dose: 10 mg Metoclopramide HCl (Reglan) 10 mg IVP Q6 [facility] Last Admin: 10/25/16 11:07 Dose: 10 mg Ondansetron HCl (Zofran Inj) 4 mg IVP Q4 PRN PRN Reason: Nausea/Vomiting Last Admin: 10/21/16 04:23 Dose: 4 mg Pantoprazole Sodium (Protonix Inj) 40 mg IVP DAILY [facility] Last Admin: 10/25/16 11:06 Dose: 40 mg Promethazine HCl/Codeine (Phenergan/Codeine Oral Syrup) 5 ml PO Q6 PRN PRN Reason: Cough - Labs Labs: 10/24/16 06:30 10/24/16 06:30 - Constitutional Appears: Chronically Ill - Head Exam Head Exam: NORMAL INSPECTION - Eye Exam Eye Exam: PERRL - ENT Exam ENT Exam: Normal Oropharynx - Neck Exam Neck Exam: Normal Inspection - Respiratory Exam Respiratory Exam: Clear to Ausculation Bilateral Additional comments: tenderness R L anterior chest wall , R Scapula , intrathoracic - Cardiovascular Exam Cardiovascular Exam: REGULAR RHYTHM - GI/Abdominal Exam GI & Abdominal Exam: Soft, Normal Bowel Sounds - Extremities Exam Extremities Exam: Normal Inspection - Back Exam Back Exam: tenderness - Neurological Exam Neurological Exam: Alert, Oriented x3. absent: Motor Sensory Deficit - Psychiatric Exam Psychiatric exam: Anxious - Skin Skin Exam: Warm Assessment and Plan (1) Severe nausea and vomiting Status: Acute (2) Neoplasm of lung, upper lobe, malignant Status: Acute (3) Malignant neoplasm metastatic to liver Status: Acute (4) GORDY (acute kidney injury) Status: Acute (5) Chronic lumbosacral pain Status: Chronic (6) HTN (hypertension) Status: Chronic (7) Anxiety Status: Chronic - Assessment and Plan (Free Text) Plan: Continue Methadone , Dilaudid , and rest of treatment
--- NOTE | 2016-10-25 14:54 | CP.PCM.PN ---
Subjective - Date & Time of Evaluation Date of Evaluation: 10/25/16 Time of Evaluation: 02:00 - Subjective Subjective: Pt states that he feels better but still not eating good Objective - Vital Signs/Intake and Output Vital Signs (last 24 hours): Temp Pulse Resp BP Pulse Ox 98.7 F 68 20 159/89 H 98 10/25/16 08:21 10/25/16 08:21 10/25/16 08:21 10/25/16 08:21 10/25/16 08:21 - Medications Medications: Current Medications Alprazolam (Xanax) 0.5 mg PO TID PRN PRN Reason: Anxiety Last Admin: 10/25/16 08:34 Dose: 0.5 mg Calcium Carbonate (Oscal) 500 mg PO BID [facility] Last Admin: 10/25/16 08:40 Dose: 500 mg Docusate Sodium (Colace) 200 mg PO DAILY [facility] Last Admin: 10/25/16 08:39 Dose: 200 mg Heparin Sodium (Porcine) (Heparin) 5,000 units SC Q12 [facility] PRN Reason: Protocol Last Admin: 10/25/16 08:40 Dose: 5,000 units Hydromorphone HCl (Dilaudid) 4 mg IVP Q4 PRN PRN Reason: Pain, severe (8-10) Last Admin: 10/25/16 12:30 Dose: 4 mg Ciprofloxacin (Cipro 200mg/100ml D5w) 100 mls @ 100 mls/hr IVPB Q12 [facility] Last Admin: 10/25/16 08:39 Dose: 100 mls/hr Piperacillin Sod/Tazobactam (Sod 2.25 gm/ Sodium Chloride) 100 mls @ 100 mls/ hr IVPB Q6 [facility] Last Admin: 10/25/16 11:06 Dose: 100 mls/hr Methadone HCl (Methadone) 10 mg PO Q4 [facility] Last Admin: 10/25/16 12:30 Dose: 10 mg Metoclopramide HCl (Reglan) 10 mg IVP Q6 [facility] Last Admin: 10/25/16 11:07 Dose: 10 mg Ondansetron HCl (Zofran Inj) 4 mg IVP Q4 PRN PRN Reason: Nausea/Vomiting Last Admin: 10/21/16 04:23 Dose: 4 mg Pantoprazole Sodium (Protonix Inj) 40 mg IVP DAILY [facility] Last Admin: 10/25/16 11:06 Dose: 40 mg Promethazine HCl/Codeine (Phenergan/Codeine Oral Syrup) 5 ml PO Q6 PRN PRN Reason: Cough - Labs Labs: 10/24/16 06:30 10/24/16 06:30 - Respiratory Exam Additional comments: Lungs clear - Cardiovascular Exam Cardiovascular Exam: REGULAR RHYTHM - Extremities Exam Additional comments: No edema Assessment and Plan - Assessment and Plan (Free Text) Assessment: GORDY creat remains stable but not improned yet On IVFs HTN Lung Ca Plan: Continue with hydration Hypokalemia is corrected
[2016-10-26] MEDS: Ciprofloxacin 200mg/100ml D5W 100 ML IVPB SCH (08:40)
[2016-10-26 13:05] LABS: CALCIUM 8.3 mg/dL (8.4-10.2); POTASSIUM 4.2 MMOL/L (3.6-5.0)
--- NOTE | 2016-10-26 13:23 | CP.PCM.PN ---
Subjective - Date & Time of Evaluation Date of Evaluation: 10/26/16 Time of Evaluation: 11:00 - Subjective Subjective: Feels better today Appetite id improvimg Objective - Vital Signs/Intake and Output Vital Signs (last 24 hours): Temp Pulse Resp BP Pulse Ox 98.7 F 67 20 154/90 H 97 10/26/16 07:57 10/26/16 07:57 10/26/16 07:57 10/26/16 07:57 10/26/16 07:57 - Medications Medications: Current Medications Alprazolam (Xanax) 0.5 mg PO TID PRN PRN Reason: Anxiety Last Admin: 10/26/16 08:39 Dose: 0.5 mg Calcium Carbonate (Oscal) 500 mg PO BID [facility] Last Admin: 10/26/16 08:41 Dose: 500 mg Docusate Sodium (Colace) 200 mg PO DAILY [facility] Last Admin: 10/26/16 08:39 Dose: 200 mg Heparin Sodium (Porcine) (Heparin) 5,000 units SC Q12 [facility] PRN Reason: Protocol Last Admin: 10/26/16 08:40 Dose: 5,000 units Hydromorphone HCl (Dilaudid) 4 mg IVP Q4 PRN PRN Reason: Pain, severe (8-10) Last Admin: 10/26/16 12:34 Dose: 4 mg Ciprofloxacin (Cipro 200mg/100ml D5w) 100 mls @ 100 mls/hr IVPB Q12 [facility] Last Admin: 10/26/16 08:40 Dose: 100 mls/hr Piperacillin Sod/Tazobactam (Sod 2.25 gm/ Sodium Chloride) 100 mls @ 100 mls/ hr IVPB Q6 [facility] Last Admin: 10/26/16 09:05 Dose: 100 mls/hr Methadone HCl (Methadone) 10 mg PO Q4 [facility] Last Admin: 10/26/16 12:34 Dose: 10 mg Metoclopramide HCl (Reglan) 10 mg IVP Q6 [facility] Last Admin: 10/26/16 09:05 Dose: 10 mg Ondansetron HCl (Zofran Inj) 4 mg IVP Q4 PRN PRN Reason: Nausea/Vomiting Last Admin: 10/21/16 04:23 Dose: 4 mg Pantoprazole Sodium (Protonix Inj) 40 mg IVP DAILY [facility] Last Admin: 10/26/16 08:41 Dose: 40 mg Promethazine HCl/Codeine (Phenergan/Codeine Oral Syrup) 5 ml PO Q6 PRN PRN Reason: Cough - Labs Labs: 10/24/16 06:30 10/26/16 12:30 - Respiratory Exam Additional comments: Lungs clear - Cardiovascular Exam Cardiovascular Exam: REGULAR RHYTHM - Extremities Exam Additional comments: No edema Assessment and Plan - Assessment and Plan (Free Text) Assessment: Joslyn. Creatinine is stable @ 1.6 Lung Ca Plan: Continue to monitor renal function Continue gentle hydration
--- NOTE | 2016-10-26 13:43 | CP.PCM.PN ---
Subjective - Date & Time of Evaluation Date of Evaluation: 10/26/16 Time of Evaluation: 11:30 - Subjective Subjective: F/U Lung Ca. Pt c/o of pain in R-L anterior wall chest. Objective - Vital Signs/Intake and Output Vital Signs (last 24 hours): Temp Pulse Resp BP Pulse Ox 98.7 F 67 20 154/90 H 97 10/26/16 07:57 10/26/16 07:57 10/26/16 07:57 10/26/16 07:57 10/26/16 07:57 - Medications Medications: Current Medications Alprazolam (Xanax) 0.5 mg PO TID PRN PRN Reason: Anxiety Last Admin: 10/26/16 08:39 Dose: 0.5 mg Calcium Carbonate (Oscal) 500 mg PO BID [facility] Last Admin: 10/26/16 08:41 Dose: 500 mg Docusate Sodium (Colace) 200 mg PO DAILY [facility] Last Admin: 10/26/16 08:39 Dose: 200 mg Heparin Sodium (Porcine) (Heparin) 5,000 units SC Q12 [facility] PRN Reason: Protocol Last Admin: 10/26/16 08:40 Dose: 5,000 units Hydromorphone HCl (Dilaudid) 4 mg IVP Q4 PRN PRN Reason: Pain, severe (8-10) Last Admin: 10/26/16 12:34 Dose: 4 mg Ciprofloxacin (Cipro 200mg/100ml D5w) 100 mls @ 100 mls/hr IVPB Q12 [facility] Last Admin: 10/26/16 08:40 Dose: 100 mls/hr Piperacillin Sod/Tazobactam (Sod 2.25 gm/ Sodium Chloride) 100 mls @ 100 mls/ hr IVPB Q6 [facility] Last Admin: 10/26/16 09:05 Dose: 100 mls/hr Dextrose/Sodium Chloride (Dextrose 5%-0.45% Ns 500 Ml) 1,000 mls @ 60 mls/hr IV .[id number] [facility] Stop: 10/27/16 13:38 Methadone HCl (Methadone) 10 mg PO Q4 [facility] Last Admin: 10/26/16 12:34 Dose: 10 mg Metoclopramide HCl (Reglan) 10 mg IVP Q6 [facility] Last Admin: 10/26/16 09:05 Dose: 10 mg Ondansetron HCl (Zofran Inj) 4 mg IVP Q4 PRN PRN Reason: Nausea/Vomiting Last Admin: 10/21/16 04:23 Dose: 4 mg Pantoprazole Sodium (Protonix Inj) 40 mg IVP DAILY [facility] Last Admin: 10/26/16 08:41 Dose: 40 mg Promethazine HCl/Codeine (Phenergan/Codeine Oral Syrup) 5 ml PO Q6 PRN PRN Reason: Cough - Labs Labs: 10/24/16 06:30 10/26/16 12:30 - Constitutional Appears: No Acute Distress, Chronically Ill - Head Exam Head Exam: NORMAL INSPECTION - Eye Exam Eye Exam: PERRL - ENT Exam ENT Exam: Normal Exam - Neck Exam Neck Exam: Normal Inspection - Respiratory Exam Respiratory Exam: NORMAL BREATHING PATTERN - Cardiovascular Exam Cardiovascular Exam: REGULAR RHYTHM Additional comments: Tenderness R-L anterior chest wall and R posterior chest wall. - GI/Abdominal Exam GI & Abdominal Exam: Soft, Tenderness (Mild periumbilical ), Normal Bowel Sounds - Extremities Exam Extremities Exam: Normal Inspection - Back Exam Back Exam: tenderness (L-S) - Neurological Exam Neurological Exam: Alert, Oriented x3. absent: Motor Sensory Deficit - Psychiatric Exam Psychiatric exam: Anxious - Skin Skin Exam: Normal Color, Warm Assessment and Plan (1) Severe nausea and vomiting Status: Acute (2) Neoplasm of lung, upper lobe, malignant Status: Acute (3) Malignant neoplasm metastatic to liver Status: Acute (4) GORDY (acute kidney injury) Status: Acute (5) Chronic lumbosacral pain Status: Chronic (6) HTN (hypertension) Status: Chronic (7) Anxiety Status: Chronic - Assessment and Plan (Free Text) Plan: Continue current Tx. to have RT tomorrow in [facility].
--- NOTE | 2016-10-27 09:12 | CP.PCM.PN ---
Subjective - Date & Time of Evaluation Date of Evaluation: 10/27/16 Time of Evaluation: 08:58 - Subjective Subjective: Pt is afebrile in no acute distress. Still c/o pain and no appetite. No more vomiting. Will start Radiation therapy today at [facility]. Objective - Vital Signs/Intake and Output Vital Signs (last 24 hours): Temp Pulse Resp BP Pulse Ox 99.5 F 87 20 143/84 94 L 10/27/16 07:56 10/27/16 07:56 10/27/16 07:56 10/27/16 07:56 10/27/16 07:56 - Medications Medications: Current Medications Alprazolam (Xanax) 0.5 mg PO TID PRN PRN Reason: Anxiety Last Admin: 10/27/16 04:50 Dose: 0.5 mg Calcium Carbonate (Oscal) 500 mg PO BID [facility] Last Admin: 10/27/16 08:08 Dose: 500 mg Docusate Sodium (Colace) 200 mg PO DAILY [facility] Last Admin: 10/27/16 08:07 Dose: 200 mg Heparin Sodium (Porcine) (Heparin) 5,000 units SC Q12 [facility] PRN Reason: Protocol Last Admin: 10/27/16 08:08 Dose: 5,000 units Hydromorphone HCl (Dilaudid) 4 mg IVP Q4 PRN PRN Reason: Pain, severe (8-10) Last Admin: 10/27/16 08:06 Dose: 4 mg Dextrose/Sodium Chloride (Dextrose 5%-0.45% Ns 500 Ml) 1,000 mls @ 60 mls/hr IV .[id number] [facility] Stop: 10/27/16 13:38 Last Admin: 10/27/16 07:05 Dose: Not Given Methadone HCl (Methadone) 10 mg PO Q4 [facility] Last Admin: 10/27/16 08:05 Dose: 10 mg Metoclopramide HCl (Reglan) 10 mg IVP Q6 [facility] Last Admin: 10/27/16 04:28 Dose: 10 mg Ondansetron HCl (Zofran Inj) 4 mg IVP Q4 PRN PRN Reason: Nausea/Vomiting Last Admin: 10/27/16 08:11 Dose: 4 mg Pantoprazole Sodium (Protonix Inj) 40 mg IVP DAILY [facility] Last Admin: 10/27/16 08:08 Dose: 40 mg Promethazine HCl/Codeine (Phenergan/Codeine Oral Syrup) 5 ml PO Q6 PRN PRN Reason: Cough Last Admin: 10/26/16 16:58 Dose: 5 ml - Labs Labs: 10/24/16 06:30 10/26/16 12:30
--- NOTE | 2016-10-27 12:08 | CP.PCM.PN ---
Subjective - Date & Time of Evaluation Date of Evaluation: 10/27/16 Time of Evaluation: 12:06 - Subjective Subjective: Patient and bed He just came back from radiation therapy Appetite good Serum sodium in the range of 135+ Serum creatinine still around 1.6 approximately The impression and plan Acute kidney injury continue to monitor kidney function stable Lung cancer Radiation therapy Gentle hydration Objective - Vital Signs/Intake and Output Vital Signs (last 24 hours): Temp Pulse Resp BP Pulse Ox 99.0 F 87 19 144/81 97 10/27/16 10:16 10/27/16 10:16 10/27/16 10:16 10/27/16 10:16 10/27/16 10:16 - Medications Medications: Current Medications Alprazolam (Xanax) 0.5 mg PO TID PRN PRN Reason: Anxiety Last Admin: 10/27/16 04:50 Dose: 0.5 mg Calcium Carbonate (Oscal) 500 mg PO BID [facility] Last Admin: 10/27/16 08:08 Dose: 500 mg Docusate Sodium (Colace) 200 mg PO DAILY [facility] Last Admin: 10/27/16 08:07 Dose: 200 mg Heparin Sodium (Porcine) (Heparin) 5,000 units SC Q12 [facility] PRN Reason: Protocol Last Admin: 10/27/16 08:08 Dose: 5,000 units Hydromorphone HCl (Dilaudid) 4 mg IVP Q4 PRN PRN Reason: Pain, severe (8-10) Last Admin: 10/27/16 08:06 Dose: 4 mg Dextrose/Sodium Chloride (Dextrose 5%-0.45% Ns 500 Ml) 1,000 mls @ 60 mls/hr IV .[id number] [facility] Stop: 10/27/16 13:38 Last Admin: 10/27/16 07:05 Dose: Not Given Methadone HCl (Methadone) 10 mg PO Q4 [facility] Last Admin: 10/27/16 08:05 Dose: 10 mg Metoclopramide HCl (Reglan) 10 mg IVP Q6 [facility] Last Admin: 10/27/16 10:42 Dose: 10 mg Ondansetron HCl (Zofran Inj) 4 mg IVP Q4 PRN PRN Reason: Nausea/Vomiting Last Admin: 10/27/16 08:11 Dose: 4 mg Pantoprazole Sodium (Protonix Inj) 40 mg IVP DAILY [facility] Last Admin: 10/27/16 08:08 Dose: 40 mg Promethazine HCl/Codeine (Phenergan/Codeine Oral Syrup) 5 ml PO Q6 PRN PRN Reason: Cough Last Admin: 10/26/16 16:58 Dose: 5 ml - Labs Labs: 10/24/16 06:30 10/26/16 12:30 Assessment and Plan (1) GORDY (acute kidney injury) Status: Acute (2) Lung mass Status: Acute
--- NOTE | 2016-10-27 15:39 | CP.PCM.PN ---
Subjective - Date & Time of Evaluation Date of Evaluation: 10/27/16 Time of Evaluation: 12:00 - Subjective Subjective: F/U Lung Ca Pt c/o of pain in the R-L anterior chest wall and R posterior scapular. Objective - Vital Signs/Intake and Output Vital Signs (last 24 hours): Temp Pulse Resp BP Pulse Ox 99.0 F 87 19 144/81 97 10/27/16 10:16 10/27/16 10:16 10/27/16 10:16 10/27/16 10:16 10/27/16 10:16 - Medications Medications: Current Medications Alprazolam (Xanax) 0.5 mg PO TID PRN PRN Reason: Anxiety Last Admin: 10/27/16 12:17 Dose: 0.5 mg Calcium Carbonate (Oscal) 500 mg PO BID [facility] Last Admin: 10/27/16 08:08 Dose: 500 mg Docusate Sodium (Colace) 200 mg PO DAILY [facility] Last Admin: 10/27/16 08:07 Dose: 200 mg Heparin Sodium (Porcine) (Heparin) 5,000 units SC Q12 [facility] PRN Reason: Protocol Last Admin: 10/27/16 08:08 Dose: 5,000 units Hydromorphone HCl (Dilaudid) 4 mg IVP Q4 PRN PRN Reason: Pain, severe (8-10) Last Admin: 10/27/16 12:09 Dose: 4 mg Methadone HCl (Methadone) 10 mg PO Q4 [facility] Last Admin: 10/27/16 12:57 Dose: 10 mg Metoclopramide HCl (Reglan) 10 mg IVP Q6 [facility] Last Admin: 10/27/16 10:42 Dose: 10 mg Ondansetron HCl (Zofran Inj) 4 mg IVP Q4 PRN PRN Reason: Nausea/Vomiting Last Admin: 10/27/16 08:11 Dose: 4 mg Pantoprazole Sodium (Protonix Inj) 40 mg IVP DAILY [facility] Last Admin: 10/27/16 08:08 Dose: 40 mg Promethazine HCl/Codeine (Phenergan/Codeine Oral Syrup) 5 ml PO Q6 PRN PRN Reason: Cough Last Admin: 10/26/16 16:58 Dose: 5 ml - Labs Labs: 10/24/16 06:30 10/26/16 12:30 - Constitutional Appears: No Acute Distress, Chronically Ill - Head Exam Head Exam: NORMAL INSPECTION - Eye Exam Eye Exam: PERRL - ENT Exam ENT Exam: Normal Exam - Neck Exam Neck Exam: Normal Inspection - Respiratory Exam Respiratory Exam: NORMAL BREATHING PATTERN - Cardiovascular Exam Cardiovascular Exam: REGULAR RHYTHM Additional comments: Tenderness R-L anterior chest wall and R posterior chest wall. - GI/Abdominal Exam GI & Abdominal Exam: Soft, Tenderness (mild periumbilical), Normal Bowel Sounds - Extremities Exam Extremities Exam: Normal Inspection - Back Exam Back Exam: tenderness (L-S) - Neurological Exam Neurological Exam: Alert, Oriented x3. absent: Motor Sensory Deficit - Psychiatric Exam Psychiatric exam: Anxious - Skin Skin Exam: Normal Color, Warm Assessment and Plan (1) GORDY (acute kidney injury) Status: Acute (2) Severe nausea and vomiting Status: Acute (3) Malignant neoplasm metastatic to liver Status: Acute (4) Neoplasm of lung, upper lobe, malignant Status: Acute (5) Anxiety Status: Chronic (6) Chronic lumbosacral pain Status: Chronic (7) HTN (hypertension) Status: Chronic - Assessment and Plan (Free Text) Plan: To be discharged today, arrangement made by Social Service to provide transportation, continue treatment.
--- NOTE | 2016-10-28 09:20 | CP.PCM.PN ---
Subjective - Date & Time of Evaluation Date of Evaluation: 10/28/16 Time of Evaluation: 09:15 - Subjective Subjective: Pt's condition is slowly improving. He started his RT yesterday.and should feel better in a week or two. He is on a lot of pain medications for the chest pain. Objective - Vital Signs/Intake and Output Vital Signs (last 24 hours): Temp Pulse Resp BP Pulse Ox 99.2 F 94 H 18 135/82 95 10/28/16 08:19 10/28/16 08:19 10/28/16 08:19 10/28/16 08:19 10/28/16 08:19 - Medications Medications: Current Medications Alprazolam (Xanax) 0.5 mg PO TID PRN PRN Reason: Anxiety Last Admin: 10/28/16 01:30 Dose: 0.5 mg Calcium Carbonate (Oscal) 500 mg PO BID [facility] Last Admin: 10/28/16 08:17 Dose: 500 mg Docusate Sodium (Colace) 200 mg PO DAILY [facility] Last Admin: 10/28/16 08:16 Dose: 200 mg Heparin Sodium (Porcine) (Heparin) 5,000 units SC Q12 [facility] PRN Reason: Protocol Last Admin: 10/28/16 08:19 Dose: 5,000 units Hydromorphone HCl (Dilaudid) 4 mg IVP Q4 PRN PRN Reason: Pain, severe (8-10) Last Admin: 10/28/16 08:28 Dose: 4 mg Methadone HCl (Methadone) 10 mg PO Q4 [facility] Last Admin: 10/28/16 08:14 Dose: 10 mg Metoclopramide HCl (Reglan) 10 mg IVP Q6 [facility] Last Admin: 10/28/16 05:28 Dose: 10 mg Ondansetron HCl (Zofran Inj) 4 mg IVP Q4 PRN PRN Reason: Nausea/Vomiting Last Admin: 10/27/16 08:11 Dose: 4 mg Pantoprazole Sodium (Protonix Inj) 40 mg IVP DAILY [facility] Last Admin: 10/28/16 08:17 Dose: 40 mg Promethazine HCl/Codeine (Phenergan/Codeine Oral Syrup) 5 ml PO Q6 PRN PRN Reason: Cough Last Admin: 10/26/16 16:58 Dose: 5 ml - Labs Labs: 10/24/16 06:30 09/10/17 12:30
--- NOTE | 2016-10-28 11:22 | CP.PCM.PN ---
Subjective - Date & Time of Evaluation Date of Evaluation: 10/28/16 Time of Evaluation: 11:21 - Subjective Subjective: No new event reported Patient receiving radiation therapy Serum creatinine came down 1.6 Electrolyte reviewed and acceptable serum sodium around 135-136 or so Continue monitoring and continue gentle hydration Objective - Vital Signs/Intake and Output Vital Signs (last 24 hours): Temp Pulse Resp BP Pulse Ox 99.2 F 78 20 131/78 96 10/28/16 08:19 10/28/16 10:30 10/28/16 10:30 10/28/16 10:30 10/28/16 10:30 - Medications Medications: Current Medications Alprazolam (Xanax) 0.5 mg PO TID PRN PRN Reason: Anxiety Last Admin: 10/28/16 01:30 Dose: 0.5 mg Calcium Carbonate (Oscal) 500 mg PO BID [facility] Last Admin: 10/28/16 08:17 Dose: 500 mg Docusate Sodium (Colace) 200 mg PO DAILY [facility] Last Admin: 10/28/16 08:16 Dose: 200 mg Heparin Sodium (Porcine) (Heparin) 5,000 units SC Q12 [facility] PRN Reason: Protocol Last Admin: 10/28/16 08:19 Dose: 5,000 units Hydromorphone HCl (Dilaudid) 2 mg IVP Q4 PRN PRN Reason: Pain, severe (8-10) Methadone HCl (Methadone) 10 mg PO Q4 [facility] Last Admin: 10/28/16 08:14 Dose: 10 mg Metoclopramide HCl (Reglan) 10 mg IVP Q6 [facility] Last Admin: 10/28/16 05:28 Dose: 10 mg Ondansetron HCl (Zofran Inj) 4 mg IVP Q4 PRN PRN Reason: Nausea/Vomiting Last Admin: 10/27/16 08:11 Dose: 4 mg Pantoprazole Sodium (Protonix Ec Tab) 40 mg PO DAILY [facility] Promethazine HCl/Codeine (Phenergan/Codeine Oral Syrup) 5 ml PO Q6 PRN PRN Reason: Cough Last Admin: 10/26/16 16:58 Dose: 5 ml - Labs Labs: 10/24/16 06:30 10/26/16 12:30 Assessment and Plan (1) GORDY (acute kidney injury) Status: Acute (2) Lung mass Status: Acute
--- NOTE | 2016-10-28 11:31 | CP.PCM.DIS ---
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 (5) Anxiety Status: Chronic Priority: High (6) DVT prophylaxis Status: Acute Hospital Course - Lab Results Lab Results: Most Recent Lab Values WBC 9.1 K/uL (4.8-10.8) 10/24/16 06:30 RBC 3.14 Mil/uL (4.40-5.90) L 10/24/16 06:30 Hgb 8.9 g/dL (12.0-18.0) L 10/24/16 06:30 Hct 26.7 % (35.0-51.0) L 10/24/16 06:30 MCV 85.0 fl (80.0-94.0) 10/24/16 06:30 MCH 28.3 pg (27.0-31.0) 10/24/16 06:30 MCHC 33.3 g/dL (33.0-37.0) 10/24/16 06:30 RDW 17.7 % (11.5-14.5) H 10/24/16 06:30 Plt Count 192 K/uL (130-400) 10/24/16 06:30 MPV 8.0 fl (7.2-11.7) 10/22/16 06:00 Neut % (Auto) 82.1 % (50.0-75.0) H 10/22/16 06:00 Lymph % (Auto) 8.9 % (20.0-40.0) L 10/22/16 06:00 [place] % (Auto) 7.8 % (0.0-10.0) 10/22/16 06:00 Eos % (Auto) 0.8 % (0.0-4.0) 10/22/16 06:00 Baso % (Auto) 0.4 % (0.0-2.0) 10/22/16 06:00 Neut # 12.6 K/uL (1.8-7.0) H 10/22/16 06:00 Lymph # 1.4 K/uL (1.0-4.3) 10/22/16 06:00 [place] # 1.2 K/uL (0.0-0.8) H 10/22/16 06:00 Eos # 0.1 K/uL (0.0-0.7) 10/22/16 06:00 Baso # 0.1 K/uL (0.0-0.2) 10/22/16 06:00 Neutrophils % (Manual) 75 % (42-75) 10/20/16 12:55 Lymphocytes % (Manual) 9 % (20-50) L 10/20/16 12:55 Monocytes % (Manual) 14 % (0-10) H 10/20/16 12:55 Basophils % (Manual) 1 % (0-2) 10/20/16 12:55 Myelocytes % 1 % (0-0) H 10/20/16 12:55 Toxic Granulation Present 10/20/16 12:55 Platelet Estimate Normal (NORMAL) 10/20/16 12:55 Large Platelets Present 10/20/16 12:55 Hypochromasia (manual) Moderate 10/20/16 12:55 Anisocytosis (manual) Slight 10/20/16 12:55 Tear Drop Cells Slight 10/20/16 12:55 Ovalocytes Slight 10/20/16 12:55 Sodium 135 mmol/l (132-148) 10/26/16 12:30 Potassium 4.2 MMOL/L (3.6-5.0) 10/26/16 12:30 Chloride 99 mmol/L (98-107) 10/26/16 12:30 Carbon Dioxide 28 mmol/L (22-30) 10/26/16 12:30 Anion Gap 13 (10-20) 10/26/16 12:30 BUN 12 mg/dl (9-20) 10/26/16 12:30 Creatinine 1.6 mg/dL (0.8-1.5) H 10/26/16 12:30 Est GFR ( Amer) 54 10/26/16 12:30 Est GFR (Non-Af Amer) 45 10/26/16 12:30 Random Glucose 91 mg/dL (75-110) 10/26/16 12:30 Uric Acid 8.9 mg/Dl (3.5-8.5) H 10/20/16 14:09 Calcium 8.3 mg/dL (8.4-10.2) L 10/26/16 12:30 Total Bilirubin 0.4 mg/dl (0.2-1.3) 10/22/16 06:00 AST 32 U/L (17-59) 10/22/16 06:00 ALT 18 U/L (21-72) L 10/22/16 06:00 Alkaline Phosphatase 92 U/L (38-126) 10/22/16 06:00 Troponin I < 0.0120 ng/mL (0.00-0.120) 10/20/16 12:55 Total Protein 6.6 G/DL (6.3-8.2) 10/22/16 06:00 Albumin 4.0 g/dL (3.5-5.0) 10/22/16 06:00 Globulin 2.6 gm/dL (2.2-3.9) 10/22/16 06:00 Albumin/Globulin Ratio 1.5 (1.0-2.1) 10/22/16 06:00 Lipase 10 U/L (23-300) L 10/20/16 12:55 Urine Color Straw (YELLOW) 10/21/16 14:00 Urine Clarity Clear (Clear) 10/21/16 14:00 Urine pH 6.0 (5.0-8.0) 10/21/16 14:00 Ur Specific [place] 1.011 (1.003-1.030) 10/21/16 14:00 Urine Protein Negative mg/dL (NEGATIVE) 10/21/16 14:00 Urine Glucose (UA) 50 mg/dL (Normal) 10/21/16 14:00 Urine Ketones Negative mg/dL (NEGATIVE) 10/21/16 14:00 Urine Blood Negative (NEGATIVE) 10/21/16 14:00 Urine Nitrate Negative (NEGATIVE) 10/21/16 14:00 Urine Bilirubin Negative (NEGATIVE) 10/21/16 14:00 Urine Urobilinogen 0.2-1.0 mg/dL (0.2-1.0) 10/21/16 14:00 Ur Leukocyte Esterase Neg Adolph/uL (Negative) 10/21/16 14:00 Urine RBC (Auto) 2 /hpf (0-3) 10/21/16 14:00 Urine Microscopic WBC 1 /hpf (0-5) 10/21/16 14:00 Ur Squamous Epith Cells 1 /hpf (0-5) 10/21/16 14:00 Urine Bacteria Few (<OCC) H 10/21/16 14:00 Ur Random Creatinine 79.2 mg/dL 10/21/16 14:00 U Random Total Protein 14.0 mg/dL (0.0-12.0) H 10/21/16 14:00 Ur Random Sodium 118 mmol/L 10/21/16 14:00 Urine Chloride 138 mmol/L (32-290) 10/21/16 14:00 Blood Type O POSITIVE 10/20/16 15:00 Blood Type Confirm O POSITIVE 10/20/16 15:13 Antibody Screen Negative 10/20/16 15:00 BBK History Checked No verified bt 10/20/16 15:00 - Hospital Course Hospital Course: Covering for Dr Saxena 56 y/o gent with known hx of Metastatic Small cell Lung CA, came in because of intractable nausea and vomiting accompanied by a ? hemoptysis. CT of Chest and Abd: Interval progression of right suprahilar and upper lobe mass with encasement and obstruction of the right upper lobe bronchus progression of bulky mediastinal, hilar, infrahilar and subcarinal lymphadenopathy. (1) Small cell lung cancer Status: Acute know Hx of Stage IV CA - received Chemotherapy - initially responded CT of Chest showed progression of Cancer Oncology consulted Dr Madelyn sullivan rec Radiotherapy Pt was started on Radiation tx in [facility] - will continue Radiotherapy as outpt empirically started on IV Zosyn and Cipro (2) GORDY (acute kidney injury) prob due to ATN and meds Status: Acute Crea was elevated to 2.2 on admission, improved to 1.6 with IVF hydration Nephrology consulted- dr Mera - pt to ff up with nephro as outpt (3) Intractable nausea and vomiting Status: Acute IVF hydration now resolved tolerating PO diet (4) 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 absent: Respiratory Distress - Cardiovascular Exam Cardiovascular Exam: REGULAR RHYTHM, +S1, +S2 - GI/Abdominal Exam GI & Abdominal Exam: Normal Bowel Sounds, Soft. absent: Tenderness - Extremities Exam Extremities exam: full ROM, normal capillary refill, pedal pulses present Additional comments: no calf tenderness - Back Exam Back exam: FULL ROM. absent: CVA tenderness (L), CVA tenderness (R) - Neurological Exam Neurological exam: Alert, CN II-XII Intact, Normal Gait, Oriented x3, Reflexes Normal - Psychiatric Exam Psychiatric exam: Normal Affect, Normal Mood - Skin Skin Exam: Dry, Intact, Normal Color, Warm Discharge Plan - Discharge Medications Prescriptions: Albuterol 0.083% [Albuterol 0.083% Inhal Mónica (2.5 mg/3 ml) UD] 3 ml IH Q4 PRN # 50 neb PRN Reason: Wheezing Alprazolam [Xanax] 0.5 mg PO TID PRN #20 PRN Reason: Anxiety Calcium Carbonate [Oscal] 500 mg PO BID #60 tab HYDROmorphone [Dilaudid] 4 mg PO Q4 PRN #36 tab PRN Reason: Pain, Severe (8-10) Methadone 10 mg PO Q4 #36 - Follow Up Plan Condition: IMPROVED Disposition: HOME/ ROUTINE Instructions: External Beam Radiation Therapy (DC) Additional Instructions: [facility]: [phone] [facility] [place] [phone] [facility] phone number [phone] transport pickup is at 7am for [place] [facility] appt for 8:45am Continue Radiation Therapy at [place] Daily - 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
[2016-10-28] MEDS ORDERED: Albuterol-Ipratrop 3 mg / 0.5 (3 ml) UD INH STA (14:12)
--- NOTE | 2016-10-28 14:14 | CP.PCM.PN ---
Subjective - Date & Time of Evaluation Date of Evaluation: 10/28/16 Time of Evaluation: 14:13 - Subjective Subjective: Patient up and around he came from radiation therapy Serum creatinine down 1.6 Kidney function continued to improve slightly Continue to monitor patient apparently going home Follow-up as outpatient Objective - Vital Signs/Intake and Output Vital Signs (last 24 hours): Temp Pulse Resp BP Pulse Ox 99.2 F 78 20 131/78 96 10/28/16 08:19 10/28/16 10:30 10/28/16 10:30 10/28/16 10:30 10/28/16 10:30 - Medications Medications: Current Medications Alprazolam (Xanax) 0.5 mg PO TID PRN PRN Reason: Anxiety Last Admin: 10/28/16 11:57 Dose: 0.5 mg Calcium Carbonate (Oscal) 500 mg PO BID [facility] Last Admin: 10/28/16 08:17 Dose: 500 mg Docusate Sodium (Colace) 200 mg PO DAILY [facility] Last Admin: 10/28/16 08:16 Dose: 200 mg Heparin Sodium (Porcine) (Heparin) 5,000 units SC Q12 RYAN PRN Reason: Protocol Last Admin: 10/28/16 08:19 Dose: 5,000 units Hydromorphone HCl (Dilaudid) 2 mg IVP Q4 PRN PRN Reason: Pain, severe (8-10) Last Admin: 10/28/16 12:28 Dose: 2 mg Methadone HCl (Methadone) 10 mg PO Q4 [facility] Last Admin: 10/28/16 12:26 Dose: 10 mg Metoclopramide HCl (Reglan) 10 mg IVP Q6 [facility] Last Admin: 10/28/16 11:58 Dose: Not Given Ondansetron HCl (Zofran Inj) 4 mg IVP Q4 PRN PRN Reason: Nausea/Vomiting Last Admin: 10/27/16 08:11 Dose: 4 mg Pantoprazole Sodium (Protonix Ec Tab) 40 mg PO DAILY [facility] Promethazine HCl/Codeine (Phenergan/Codeine Oral Syrup) 5 ml PO Q6 PRN PRN Reason: Cough Last Admin: 10/26/16 16:58 Dose: 5 ml - Labs Labs: 10/24/16 06:30 10/26/16 12:30 Assessment and Plan (1) GORDY (acute kidney injury) Status: Acute (2) Lung mass Status: Acute
[2016-10-28 15:46] VITALS: BP 116/71; PULSE 98; RESP 17; TEMP 99.3; O2SAT 94
[2016-10-29] MEDS ORDERED: Pantoprazole 40 mg EC Tab PO SCH (09:00)
== END 2016-10-28 18:38 | disposition home or self-care (01) | DRG 683 ==
LOC: H.ER 11:51 → H.ERHOLD 14:27 → H.MEDSURG1 15:38 → OBSVTOIN 10-21 11:30
PROVIDERS: ADMIT Internal Medicine Pulmonary Disease; ATTEND Internal Medicine Pulmonary Disease
PROC: [UNRECOGNIZED PROCEDURE] (principal; 2016-10-23)
DX: N17.9 Acute kidney failure, unspecified (principal); C34.90 Malignant neoplasm of unspecified part of unspecified bronchus or lung; C77.9 Secondary and unspecified malignant neoplasm of lymph node, unspecified; C78.00 Secondary malignant neoplasm of unspecified lung; C78.7 Secondary malignant neoplasm of liver and intrahepatic bile duct; D64.81 Anemia due to antineoplastic chemotherapy; E86.9 Volume depletion, unspecified; E11.9 Type 2 diabetes mellitus without complications; E78.00 Pure hypercholesterolemia, unspecified; E78.5 Hyperlipidemia, unspecified; G89.29 Other chronic pain; F40.240 Claustrophobia; G89.3 Neoplasm related pain (acute) (chronic); I10 Essential (primary) hypertension; I25.10 Atherosclerotic heart disease of native coronary artery without angina pectoris; Z85.118 Personal history of other malignant neoplasm of bronchus and lung; Z87.891 Personal history of nicotine dependence; Z95.5 Presence of coronary angioplasty implant and graft; Z86.19 Personal history of other infectious and parasitic diseases; J40 Bronchitis, not specified as acute or chronic; K64.9 Unspecified hemorrhoids; M54.5 Low back pain; R05 Cough; R11.2 Nausea with vomiting, unspecified; F41.9 Anxiety disorder, unspecified; D63.0 Anemia in neoplastic disease

== ENCOUNTER 2016-11-26 20:56 | Inpatient (IN) | payer BC, OTHER ==
[2016-11-26] MEDS ORDERED: Sodium Chloride 0.9% 1,000 ML IV STA (21:26)
--- NOTE | 2016-11-26 21:35 | ED PDOC ---
HPI: Chest Pain Time Seen by Provider: 11/26/16 21:14 Chief Complaint (Nursing): Chest Pain Chief Complaint (Provider): chest pain History Per: Patient History/Exam Limitations: no limitations Onset/Duration Of Symptoms: Days (x2) Current Symptoms Are (Timing): Still Present Additional Complaint(s): José Miguel Rubio is a 56 year old male with previous medical history of stage IV lung cancer, who presents to the emergency department with a complaint of worsening right-sided chest pain associated with cough and blood-tinged sputum ongoing for 2 days. stated patient is sleeping a lot. Of note, last radiation therapy was 2 weeks ago and last chemo treatment was 1 month ago. PMD: Isma Saxena MD Past Medical History Reviewed: Historical Data, Nursing Documentation, Vital Signs Vital Signs: Last Vital Signs Temp 98.2 F 11/26/16 21:10 Pulse 103 H 11/26/16 21:10 Resp 16 11/26/16 21:10 BP 152/105 H 11/26/16 21:10 Pulse Ox 98 11/26/16 23:15 - Medical History PMH: Anemia, Anxiety, Bronchitis, CAD, Fractures, HTN, Hypercholesterolemia, Malignancy (Lung Ca) Denies: HIV, Chronic Kidney Disease Other PMH: lung CA - Surgical History Surgical History: Coronary Stent - Family History Family History: States: Unknown Family Hx - Home Medications Home Medications: Ambulatory Orders Medication Instructions Recorded Docusate [Colace] 200 mg PO DAILY 07/16/16 Albuterol 0.083% [Albuterol 0.083% 3 ml IH Q4 PRN #50 neb 10/28/16 Inhal Mónica (2.5 mg/3 ml) UD] Alprazolam [Xanax] 0.5 mg PO TID PRN #20 10/28/16 Calcium Carbonate [Oscal] 500 mg PO BID #60 tab 10/28/16 HYDROmorphone [Dilaudid] 4 mg PO Q4 PRN #36 tab 10/28/16 Methadone 10 mg PO Q4 #36 10/28/16 ALPRAZolam [Xanax] 1 mg PO TID 11/17/16 Methadone [Methadone] 10 mg PO QID 11/17/16 Ondansetron ODT [Zofran ODT] 4 mg PO Q4H PRN 10/02/17 Oxycodone HCl/Acetaminophen 1 tab PO Q6H PRN 11/17/16 [Endocet 10-325 mg Tablet] - Allergies Allergies/Adverse Reactions: Allergies Allergy/AdvReac Type Severity Reaction Status Date / Time No Known Allergies Allergy Verified 11/26/16 21:10 Review of Systems ROS Statement: Except As Marked, All Systems Reviewed And Found Negative Cardiovascular: Positive for: Chest Pain (right-sided) Respiratory: Positive for: Cough, Sputum (blood-tinged) Physical Exam - Reviewed Nursing Documentation Reviewed: Yes Vital Signs Reviewed: Yes - Physical Exam Appears: Positive for: Well, Non-toxic, No Acute Distress Head Exam: Positive for: ATRAUMATIC, NORMAL INSPECTION, NORMOCEPHALIC Cardiovascular/Chest: Positive for: Regular Rate, Rhythm, Other (right chest wall tenderness around port). Negative for: Chest Non Tender, Murmur Respiratory: Positive for: Normal Breath Sounds, Accessory Muscle Use, Crackles. Negative for: Decreased Breath Sounds, Respiratory Distress Gastrointestinal/Abdominal: Positive for: Normal Exam, Bowel Sounds, Soft. Negative for: Tenderness Neurologic/Psych: Positive for: Alert, Oriented - Laboratory Results Result Diagrams: 11/26/16 22:19 11/26/16 22:19 - ECG Interpretation Of ECG: NSR @ 98, no ST-T changes. O2 Sat by Pulse Oximetry: 98 (RA) Pulse Ox Interpretation: Normal - Radiology X-Ray: Interpreted by Mn X-Ray Interpretation: No Acute Disease - Progress Re-evaluation Time: 23:00 Condition: Unchanged - Physician Consult Information Physician Contacted: Isma Saxena Outcome Of Conversation: Agrees with admission for intractable pain. Medical Decision Making Medical Decision Making: Initial Impression: Chest pain Initial Plan: * EKG * CMP * Troponin I * Urine dipstick * CBC * PTT * PT * CXR * Dilantin 2mg IVP * Dilaudid 2mg IVP * NS 1,000ml IV per 1,000mls/hr * Urinalysis Scribe Attestation: Documented by Tracey Morley, acting as a scribe for Nahomi Georges MD Provider Scribe Attestation: All medical record entries made by the Scribe were at my direction and personally dictated by me. I have reviewed the chart and agree that the record accurately reflects my personal performance of the history, physical exam, medical decision making, and the department course for this patient. I have also personally directed, reviewed, and agree with the discharge instructions and disposition. Disposition - Clinical Impression Clinical Impression: Atypical chest pain - Patient ED Disposition Is Patient to be Admitted: Yes - Disposition Disposition Time: 23:15 Condition: STABLE Forms: [employer] (Latvian) - Pt Status Changed To: Hospital Disposition Of: Observation - POA Present On Arrival: None
[2016-11-26 22:22] LABS: BASO # 0.1 K/uL (0.0-0.2); BASO % 0.9 % (0.0-2.0); EOS % 0.6 % (0.0-4.0); HEMATOCRIT 23.7 % (35.0-51.0); LYMPH # 0.6 K/uL (1.0-4.3); LYMPH % 10.4 % (20.0-40.0); MEAN CELL VOLUME 82.5 fl (80.0-94.0); MEAN CORPUSCULAR HGB CONC 32.8 g/dL (33.0-37.0); MEAN PLATELET VOLUME 7.5 fl (7.2-11.7); MONO # 0.6 K/uL (0.0-0.8); MONO % 10.3 % (0.0-10.0); NEUT # 4.5 K/uL (1.8-7.0); NEUT % 77.8 % (50.0-75.0); WHITE BLOOD COUNT 5.8 K/uL (4.8-10.8)
[2016-11-26 22:31] LABS: ALB/GLOB RATIO 1.3 (1.0-2.1); BILIRUBIN,TOTAL 0.6 mg/dl (0.2-1.3); CALCIUM 10.3 mg/dL (8.4-10.2); POTASSIUM 4.1 MMOL/L (3.6-5.0); TOTAL PROTEIN 7.7 G/DL (6.3-8.2)
[2016-11-26 22:32] LABS: PARTIAL THROMBOPLASTIN TIME 33.7 Seconds (25.6-37.1)
[2016-11-26 22:42] LABS: TROPONIN I 0.013 ng/mL (0.00-0.120)
[2016-11-27] MEDS ORDERED: Patient's Own Med (Oxycodone Hcl/Acetaminophen [Endocet 10-325 Mg Tablet] 1 TAB) PO PRN (03:01)
--- NOTE | 2016-11-27 09:14 | RAD ---
HISTORY: Right-sided chest pain. COMPARISON: 10/20/2016 single-view chest. 10/22/2016 CT thorax FINDINGS: LUNGS: Interval improvement an consolidative changes compared to the prior study primarily affecting the right upper lobe. Right upper lobe has increased in volume. PLEURA: No significant pleural effusion identified, no pneumothorax apparent. CARDIOVASCULAR: No radiographic findings to suggest acute or significant cardiovascular disease. Venous access catheter in stable, satisfactory position. OSSEOUS STRUCTURES: No significant abnormalities. VISUALIZED UPPER ABDOMEN: Normal. OTHER FINDINGS: None. IMPRESSION: Improving right upper lobe infiltrate and improved aeration of the right upper lobe.
--- NOTE | 2016-11-27 12:01 | CARD ---
APPROVED REPORT EKG Measurement Heart [id number] <Conclusion> Normal sinus rhythm Normal ECG
[2016-11-27 12:35] LABS: HEMATOCRIT 28.3 % (35.0-51.0); MEAN CELL VOLUME 82.2 fl (80.0-94.0); MEAN CORPUSCULAR HEMOGLOBIN 27.8 pg (27.0-31.0); MEAN CORPUSCULAR HGB CONC 33.8 g/dL (33.0-37.0); RED CELL DISTRIBUTION WIDTH 18.1 % (11.5-14.5); WHITE BLOOD COUNT 4.2 K/uL (4.8-10.8)
[2016-11-27 12:50] LABS: ALB/GLOB RATIO 1.3 (1.0-2.1); ALKALINE PHOSPHATASE 74 U/L (38-126); ALT/SGPT 25 U/L (21-72); AST/SGOT 56 U/L (17-59); BILIRUBIN,TOTAL 0.5 mg/dl (0.2-1.3); BLOOD UREA NITROGEN 31 mg/dl (9-20); CARBON DIOXIDE 25 mmol/L (22-30); CHLORIDE 96 mmol/L (98-107); CHOLESTEROL 217 mg/dL (0-199); GFR AFRICAN-AMERICAN > 60; GLUCOSE,RANDOM 97 mg/dL (75-110); POTASSIUM 4.5 MMOL/L (3.6-5.0); SODIUM 134 mmol/l (132-148); TOTAL PROTEIN 7.2 G/DL (6.3-8.2)
[2016-11-27 13:08] LABS: T4 7.74 ug/dl (5.5-11.0)
[2016-11-27 13:20] LABS: THYROID STIMULATING HORMONE 1.01 mIU/ML (0.46-4.68)
--- NOTE | 2016-11-27 14:54 | CP.PCM.HP ---
History of Present Illness - History of Present Illness History of Present Illness: CC R Chest Pain. 56 y/o M, Hx of RUL Small Cell Ca with metastasis Mediastinum , Liver. Patient came in to [facility] on 11/26/16 to be evaluated for R chest pain , onset 2 days RHINOLOGIST with no relief. As per PT, he began feeling intermittent R side chest wall pain 2 days RHINOLOGIST increased on DOA to severe intensity 8:10 associated to productive cough with blood tinged sputum , also severe pain in Maxillo- Facial-Mandible area with numbness past 2 weeks Pt with Hx of RUL Ca stage IV with Metastasis to Mediastinum and Liver Dx May ,treated initially with Chemothrerapy with decrease in size of tumor RUL Mediastinal and Liver metastasis, thereafter treated with radiation therapy for tumor narrowing RUL Bronchi last RT treatment 2 weeks ago , CT showing decrease in RUL tumor Present on Admission - Present on Admission Any Indicators Present on Admission: No Review of Systems - Constitutional Constitutional: Other (negative) - EENT Eyes: Other (negative) Ears: Other (negative) Nose/Mouth/Throat: Facial Pain (Maxilla- Mandible area) - Cardiovascular Cardiovascular: Other (Chest wall pain.) - Respiratory Respiratory: Other (negative) - Gastrointestinal Gastrointestinal: Nausea - Genitourinary Genitourinary: Other (negative) - Musculoskeletal Musculoskeletal: Other (TMJ pain, Frontal pain) - Integumentary Integumentary: Other (negative) - Neurological Neurological: Other (negative) - Psychiatric Psychiatric: Anxiety, Irritability - Endocrine Endocrine: Other (negative) - Hematologic/Lymphatic Hematologic: Other (negative) Past Patient History - Infectious Disease Hx of Infectious Diseases: None - Past Medical History & Family History Past Medical History?: Yes Pertinent Family History: Unknown - Past Social History Smoking Status: Former Smoker Alcohol: None Drugs: Other (previous use in the past) Home Situation {Lives}: Alone - CARDIAC Hx Cardiac Disorders: Yes Hx Hypercholesterolemia: Yes Hx Hypertension: Yes - PULMONARY Hx Respiratory Disorders: Yes Hx Bronchitis: Yes - NEUROLOGICAL Hx Neurological Disorder: No - HEENT Hx HEENT Problems: No - RENAL Hx Chronic Kidney Disease: No - ENDOCRINE/METABOLIC Hx Endocrine Disorders: No - HEMATOLOGICAL/ONCOLOGICAL Hx Blood Disorders: Yes Hx AIDS: No Hx Anemia: Yes Hx Cancer: Yes Hx Chemotherapy: Yes Hx Hepatitis C: Yes Hx Human Immunodeficiency Virus (HIV): No Hx Metastesis: Yes - INTEGUMENTARY Hx Dermatological Problems: No - MUSCULOSKELETAL/RHEUMATOLOGICAL Hx Musculoskeletal Disorders: Yes (Chest wall pain) Hx Falls: No Hx Fractures: Yes - GASTROINTESTINAL Hx Gastrointestinal Disorders: Yes Hx Hemorrhoids: Yes - GENITOURINARY/GYNECOLOGICAL Hx Genitourinary Disorders: No - PSYCHIATRIC Hx Psychophysiologic Disorder: Yes Hx Anxiety: Yes Hx Substance Use: No - SURGICAL HISTORY Hx Coronary Stent: Yes - ANESTHESIA Hx Anesthesia: Yes Hx Anesthesia Reactions: No Hx Malignant Hyperthermia: No Has any member of the family had a problem w/ anesthesia?: No Meds Allergies/Adverse Reactions: Allergies Allergy/AdvReac Type Severity Reaction Status Date / Time No Known Allergies Allergy Verified 11/26/16 21:10 Physical Exam - Constitutional Appears: No Acute Distress - Head Exam Head Exam: NORMAL INSPECTION - Eye Exam Eye Exam: PERRL - ENT Exam Additional comments: tenderness R L TMJ , Maxilla , Mandiible - Neck Exam Neck exam: Positive for: Normal Inspection - Respiratory Exam Respiratory Exam: Chest Wall Tenderness (Right), Clear to Auscultation Bilateral - Cardiovascular Exam Cardiovascular Exam: REGULAR RHYTHM - GI/Abdominal Exam GI & Abdominal Exam: Normal Bowel Sounds, Soft - Extremities Exam Extremities exam: Positive for: normal inspection - Back Exam Back exam: NORMAL INSPECTION - Neurological Exam Neurological exam: Alert, Oriented x3 Additional comments: No motor sensory deficit. - Psychiatric Exam Psychiatric exam: Anxious - Skin Skin Exam: Normal Color, Warm Results - Vital Signs Recent Vital Signs: Last Vital Signs Temp 98.1 F 11/27/16 13:21 Pulse 74 11/27/16 13:21 Resp 18 11/27/16 13:21 BP 182/79 H 11/27/16 13:21 Pulse Ox 99 11/27/16 13:21 reviewed J.P. - Labs Result Diagrams: 11/27/16 11:50 11/27/16 04:00 Labs: Laboratory Results - last 24 hr 11/26/16 11/26/16 11/26/16 22:19 22:19 22:19 WBC 5.8 RBC 2.88 L Hgb 7.8 L Hct 23.7 L MCV 82.5 MCH 27.0 MCHC 32.8 L RDW 18.0 H Plt Count 174 MPV 7.5 Neut % (Auto) 77.8 H Lymph % (Auto) 10.4 L [place] % (Auto) 10.3 H Eos % (Auto) 0.6 Baso % (Auto) 0.9 Neut # 4.5 Lymph # 0.6 L [place] # 0.6 Eos # 0.0 Baso # 0.1 PT 14.0 H INR 1.2 APTT 33.7 Sodium 135 Potassium 4.1 Chloride 95 L Carbon Dioxide 26 Anion Gap 18 BUN 31 H Creatinine 1.5 Est GFR ( Amer) 58 Est GFR (Non-Af Amer) 48 Random Glucose 84 Calcium 10.3 H Total Bilirubin 0.6 AST 71 H D ALT 23 Alkaline Phosphatase 82 Troponin I 0.0130 Total Protein 7.7 Albumin 4.4 Globulin 3.3 Albumin/Globulin Ratio 1.3 Triglycerides Cholesterol LDL Cholesterol Direct HDL Cholesterol Thyroxine (T4) TSH 3rd Generation 11/27/16 11/27/16 11/27/16 04:00 06:19 11:50 WBC 4.2 L RBC 3.45 L Hgb 9.6 L Hct 28.3 L MCV 82.2 MCH 27.8 MCHC 33.8 RDW 18.1 H Plt Count 154 MPV Neut % (Auto) Lymph % (Auto) [place] % (Auto) Eos % (Auto) Baso % (Auto) Neut # Lymph # [place] # Eos # Baso # PT INR APTT Sodium 134 Potassium 4.5 Chloride 96 L Carbon Dioxide 25 Anion Gap 18 BUN 31 H Creatinine 1.4 Est GFR ( Amer) > 60 Est GFR (Non-Af Amer) 52 Random Glucose 97 Calcium 10.0 Total Bilirubin 0.5 AST 56 ALT 25 Alkaline Phosphatase 74 Troponin I 0.0160 Total Protein 7.2 Albumin 4.1 Globulin 3.1 Albumin/Globulin Ratio 1.3 Triglycerides 194 H D Cholesterol 217 H LDL Cholesterol Direct 135 H HDL Cholesterol 24 L Thyroxine (T4) 7.74 TSH 3rd Generation 1.01 reviewed J.P. - EKG Data EKG comments: reviewed J.P. Assessment & Plan (1) Chest wall pain, chronic Status: Acute Priority: High (2) Temporomandibular joint (TMJ) pain Status: Acute Priority: High (3) Maxillary pain Status: Acute (4) Mandible pain Status: Acute (5) Malignant neoplasm metastatic to liver Status: Acute Priority: High (6) Stage 4 lung cancer Status: Acute (7) Anxiety Status: Chronic Priority: High - Assessment and Plan (Free Text) Plan: F/U CT Chest, CT Maxillofacial, continue Dilaudid, Methadone, Xanax and rest of Tx, Hematology consult. - Date & Time Date: 11/27/16 Time: 12:30
--- NOTE | 2016-11-27 15:12 | CT ---
PROCEDURE: CT MAXILLOFACIAL BONES WITHOUT CONTRAST HISTORY: Facial, maxillary pain. Known history of small cell lung cancer. COMPARISON: None TECHNIQUE: Contiguous axial CT images of the maxillofacial bones were obtained. Coronal and sagittal reformats were generated. Radiation dose: Total exam DLP = 841.06 mGy-cm. This CT exam was performed using one or more of the following dose reduction techniques: Automated exposure control, adjustment of the mA and/or kV according to patient size, and/or use of iterative reconstruction technique. FINDINGS: NASAL BONES: Unremarkable. ORBITS: Unremarkable. PARANASAL SINUSES/ MASTOIDS: Clear. MAXILLA: Unremarkable. MANDIBLE/ TEMPOROMANDIBULAR JOINTS: Abnormal low lucency is seen at the right mandibular condyles in an irregular fashion without definitively involving the articular cortex and is suspicious for potential metastatic disease. Differs diagnosis would be an infectious process though is not favored. There is a known history of small cell lung cancer favoring the former. SKULL BASE: Unremarkable. TEMPORAL BONES: Middle ears and mastoid grossly unremarkable. OTHER FINDINGS: A lytic lesion is identified at the left frontal bone eroding the outer greater than inner tables and appearing poorly defined. IMPRESSION: Findings suspicious for metastatic disease at the left frontal bone and the right mandibular condyles as discussed above. Follow-up nuclear bone scan is advised. Infectious or inflammatory etiologies are not favored but further clinical correlation is advised.
--- NOTE | 2016-11-27 15:52 | CP.PCM.PN ---
Subjective - Date & Time of Evaluation Date of Evaluation: 11/27/16 Time of Evaluation: 15:38 - Subjective Subjective: This is a 56 yrs old male well known to me because of a small cell carcinoma which was diagnosed about 6 months ago. He had a large mass in the mediastinum and the hilar area. He also has liver metastasis., and was started on chemotherapy with cisplatinum and etoposide. He did remarkably well with a 85 % shrinkage of the lung lesion and some improvement of the liver lesions as well. Pt was feeling well, and he went back to work, stopped most of his narcotic medicines, and came regularly for his chemo.He then started to c/o severe chest pain and started taking a lot of narcotic pain meds. A ct scan showed that the tumor had grown back again. Since he relapsed, I decided to give him chemotherapy which he got for 4 weeks. He called me after that claiming that he was feeling great, but soon went back to his drug habit. He has had many ER visits, and admissions fot the pain. He is on methodone, oxycodone and tramadol.and still c/o pain. He has a h/o addiction to drugs in the past He was a heavy smoker for a very long time. Objective - Vital Signs/Intake and Output Vital Signs (last 24 hours): Temp Pulse Resp BP Pulse Ox 97.6 F 74 18 123/77 95 11/27/16 08:00 11/27/16 08:00 11/27/16 08:00 11/27/16 08:00 11/27/16 08:00 - Medications Medications: Current Medications Albuterol/Ipratropium (Duoneb 3 Mg/0.5 Mg (3 Ml) Ud) 3 ml INH TID [facility] Alprazolam (Xanax) 0.5 mg PO TID PRN PRN Reason: Anxiety Alprazolam (Xanax) 1 mg PO TID [facility] Last Admin: 11/27/16 12:24 Dose: 1 mg Calcium Carbonate (Oscal) 500 mg PO BID [facility] Last Admin: 11/27/16 08:22 Dose: 500 mg Docusate Sodium (Colace) 200 mg PO DAILY [facility] Last Admin: 11/27/16 08:22 Dose: 200 mg Home Med (Oxycodone Hcl/Acetaminophen [Endocet 10-325 Mg Tablet]) 1 tab PO Q6H PRN PRN Reason: Pain, severe (8-10) Hydromorphone HCl (Dilaudid) 4 mg IVP Q4 PRN PRN Reason: Pain, severe (8-10) Last Admin: 11/27/16 12:16 Dose: 4 mg Methadone HCl (Methadone) 10 mg PO QID [facility] Last Admin: 11/27/16 12:24 Dose: 10 mg Ondansetron HCl (Zofran Inj) 4 mg IVP Q4 PRN PRN Reason: Nausea/Vomiting Last Admin: 11/27/16 04:13 Dose: 4 mg - Labs Labs: 11/27/16 11:50 11/27/16 04:00 PT 14.0 Seconds (9.8-13.1) H 11/26/16 22:19 INR 1.2 (0.9-1.2) 11/26/16 22:19 APTT 33.7 Seconds (25.6-37.1) 11/26/16 22:19 - Additional Findings Additional findings: Physical exam; aolert. well oriented in no acute distress neck; Supple, no adenopathy. C/o pain in the TMJ and the left frontal area. 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 Plan: Plan; Pt's condition seems to get worse evrytime I see hoim. he had ct of the head and maxillary sinuses todayand of the chest. Will review and discuss with patient.
--- NOTE | 2016-11-27 15:54 | CT ---
PROCEDURE: CT Chest without contrast HISTORY: Pneumonia, lung ca COMPARISON: Chest CT without contrast 10/22/2016. TECHNIQUE: Contiguous axial images were obtained through the chest without intravenous contrast enhancement. Sagittal and coronal reconstructions were performed. Radiation dose (DLP): 919.72 mGy-cm. This CT exam was performed using one or more of the following dose reduction techniques: Automated exposure control, adjustment of the mA and/or kV according to patient size, and/or use of iterative reconstruction technique. FINDINGS: LUNGS: Scattered bullae are again seen greater the left and right lungs. The prior 6.5 cm right suprahilar/ upper lobe mass appears markedly smaller is difficult to measure but appears to measure only 3.1 cm greatest dimension at this time. Calcified right hilar adenopathy likely remains but is silhouetted by residual tumor. However, there is likely residual tissue separate from the hilum at the right apex measuring 4.2 x 2.5 cm (anteroposterior by transverse dimensions) with small satellite type lesions identified at the right upper lobe in images 31 and 44 respectively. The more anterior of the more cephalad pair measures 1.3 cm greatest dimension with the more caudad measure 1.2 cm. Of the more inferior pair, the more anterior measures 1.1 cm with the more posterior measuring 1.8 cm. Additional tinier nodules are scattered at the right upper lobe as well as ground-glass opacity. No left-sided mass identified at this time. Central airways appear clear once again. MEDIASTINUM: Preaortic lymphadenopathy is increased with a likely aggregate of lymph nodes versus solitary grossly enlarged lymph node measuring 4.5 x 2.3 cm compared to 2.8 x 1.3 cm. Lack images intravenous contrast limits evaluation the hilar regions with no gross left hilar adenopathy identified. Right hilar density is diminished suggesting diminishing mass or lymphadenopathy here. PLEURA: Minimal anterior pericardial effusion. No pleural effusion bilaterally. No pneumothorax. BONES: T6-7 vertebral body fusion identified an old healed left lateral 6th rib fracture identified. UPPER ABDOMEN: Grossly unremarkable. OTHER FINDINGS: None. IMPRESSION: Prior mass at the right upper lobe/ right suprahilar region appears diminished in size however a conglomerate area of lymphadenopathy at the anterior mediastinum has increased in size and new masses are seen at the right upper lobe in the periphery and near the apex not clearly identified previously indicative of interval progression. No left-sided pulmonary mass. Trace anterior pericardial effusion.
[2016-11-27] MEDS: Albuterol-Ipratrop 3 mg / 0.5 (3 ml) UD INH SCH (19:56)
[2016-11-27 20:18] LABS: RBC URINE 1 /hpf (0-3); URINE BILIRUBIN NEGATIVE (NEGATIVE); URINE BLOOD NEGATIVE (NEGATIVE); URINE COLOR YELLOW (YELLOW); URINE GLUCOSE (UA) NEG (Normal); URINE KETONE NEGATIVE (NEGATIVE); URINE LEUKOCYTE ESTERASE MOD Leu/uL (Negative); URINE PROTEIN NEGATIVE (NEGATIVE); URINE UROBILINOGEN 0.2-1.0 mg/dL (0.2-1.0); WBC URINE 13 /hpf (0-5)
[2016-11-28] MEDS: Albuterol-Ipratrop 3 mg / 0.5 (3 ml) UD INH SCH ×2 (08:39→19:08)
--- NOTE | 2016-11-28 09:46 | CP.PCM.PN ---
Subjective - Date & Time of Evaluation Date of Evaluation: 11/28/16 Time of Evaluation: 09:39 - Subjective Subjective: Pt was found to have metastatic lesion in the left temporomandibular joint, and the left frontal bone,. there is not much change in the disease in the chest, if aything is it seems to be getting worse , Pt's prognosis is very poor. I had a long talk with him regarding a choice between continuing chemotherapy which i dont think is stopping pt's tumor progress and supportive care. He would like to think about it and tell me later Objective - Vital Signs/Intake and Output Vital Signs (last 24 hours): Temp Pulse Resp BP Pulse Ox 98 F 84 18 118/76 98 11/28/16 08:07 11/28/16 08:07 11/28/16 08:07 11/28/16 08:07 11/28/16 08:07 - Medications Medications: Current Medications Albuterol/Ipratropium (Duoneb 3 Mg/0.5 Mg (3 Ml) Ud) 3 ml INH TID [facility] Last Admin: 11/28/16 08:39 Dose: Not Given Alprazolam (Xanax) 0.5 mg PO TID PRN PRN Reason: Anxiety Last Admin: 11/28/16 05:05 Dose: 0.5 mg Alprazolam (Xanax) 1 mg PO TID [facility] Last Admin: 11/28/16 08:12 Dose: 1 mg Calcium Carbonate (Oscal) 500 mg PO BID [facility] Last Admin: 11/28/16 08:14 Dose: 500 mg Docusate Sodium (Colace) 200 mg PO DAILY [facility] Last Admin: 11/28/16 08:14 Dose: 200 mg Home Med (Oxycodone Hcl/Acetaminophen [Endocet 10-325 Mg Tablet]) 1 tab PO Q6H PRN PRN Reason: Pain, severe (8-10) Hydromorphone HCl (Dilaudid) 4 mg IVP Q4 PRN PRN Reason: Pain, severe (8-10) Last Admin: 11/28/16 08:13 Dose: 4 mg Methadone HCl (Methadone) 10 mg PO QID [facility] Last Admin: 11/28/16 08:12 Dose: 10 mg Ondansetron HCl (Zofran Inj) 4 mg IVP Q4 PRN PRN Reason: Nausea/Vomiting Last Admin: 11/27/16 04:13 Dose: 4 mg - Labs Labs: 11/27/16 11:50 11/27/16 04:00 PT 14.0 Seconds (9.8-13.1) H 11/26/16 22:19 INR 1.2 (0.9-1.2) 11/26/16 22:19 APTT 33.7 Seconds (25.6-37.1) 11/26/16 22:19
--- NOTE | 2016-11-28 16:29 | CP.PCM.PN ---
Subjective - Date & Time of Evaluation Date of Evaluation: 11/28/16 - Subjective Subjective: Sever pain Maxillo-Facial and mandibular , frontal bones, pain R hemithorax less intensity Objective - Vital Signs/Intake and Output Vital Signs (last 24 hours): Temp Pulse Resp BP Pulse Ox 98.7 F 78 14 114/73 97 11/28/16 15:57 11/28/16 15:57 11/28/16 15:57 11/28/16 15:57 11/28/16 15:57 - Medications Medications: Current Medications Albuterol/Ipratropium (Duoneb 3 Mg/0.5 Mg (3 Ml) Ud) 3 ml INH TID [facility] Last Admin: 11/28/16 08:39 Dose: Not Given Alprazolam (Xanax) 0.5 mg PO TID PRN PRN Reason: Anxiety Last Admin: 11/28/16 05:05 Dose: 0.5 mg Alprazolam (Xanax) 1 mg PO TID [facility] Last Admin: 11/28/16 16:22 Dose: 1 mg Calcium Carbonate (Oscal) 500 mg PO BID [facility] Last Admin: 11/28/16 08:14 Dose: 500 mg Docusate Sodium (Colace) 200 mg PO DAILY [facility] Last Admin: 11/28/16 08:14 Dose: 200 mg Home Med (Oxycodone Hcl/Acetaminophen [Endocet 10-325 Mg Tablet]) 1 tab PO Q6H PRN PRN Reason: Pain, severe (8-10) Hydromorphone HCl (Dilaudid) 5 mg IVP Q4 [facility] Methadone HCl (Methadone) 10 mg PO Q4 [facility] Last Admin: 11/28/16 16:22 Dose: 10 mg Ondansetron HCl (Zofran Inj) 4 mg IVP Q4 PRN PRN Reason: Nausea/Vomiting Last Admin: 11/27/16 04:13 Dose: 4 mg - Labs Labs: 11/27/16 11:50 11/27/16 04:00 PT 14.0 Seconds (9.8-13.1) H 11/26/16 22:19 INR 1.2 (0.9-1.2) 11/26/16 22:19 APTT 33.7 Seconds (25.6-37.1) 11/26/16 22:19 - Constitutional Appears: Chronically Ill - Head Exam Head Exam: NORMAL INSPECTION - Eye Exam Eye Exam: PERRL - ENT Exam Additional comments: tenderness maxillo-facial , supraorbital , mandible - Neck Exam Neck Exam: Normal Inspection - Respiratory Exam Respiratory Exam: Chest Wall Tenderness (R chest wall anterior and posteriior) , Clear to Ausculation Bilateral - Cardiovascular Exam Cardiovascular Exam: REGULAR RHYTHM - GI/Abdominal Exam GI & Abdominal Exam: Soft, Normal Bowel Sounds - Extremities Exam Extremities Exam: Normal Inspection - Back Exam Back Exam: tenderness - Neurological Exam Neurological Exam: Alert, Oriented x3. absent: Motor Sensory Deficit - Psychiatric Exam Psychiatric exam: Anxious, Depressed - Skin Skin Exam: Warm Assessment and Plan (1) Chest wall pain, chronic Status: Acute (2) Temporomandibular joint (TMJ) pain Status: Acute (3) Maxillary pain Status: Acute (4) Mandible pain Status: Acute (5) Malignant neoplasm metastatic to liver Assessment & Plan: Mediastinum , mandible , frontal bone Status: Acute (6) Stage 4 lung cancer Status: Acute (7) Anxiety Status: Chronic - Assessment and Plan (Free Text) Plan: Discussed with Patient , He wants to continue with Chemotherapy, increase pain medication , Hematology f/u appreciated
[2016-11-29] MEDS: Albuterol-Ipratrop 3 mg / 0.5 (3 ml) UD INH SCH ×3 (08:07→19:00)
--- NOTE | 2016-11-29 10:53 | CP.PCM.PN ---
Subjective - Date & Time of Evaluation Date of Evaluation: 11/29/16 Time of Evaluation: 10:50 - Subjective Subjective: Pt is afebrile , He is a little more alert and aware today. He claims that he thought over our discussion from yesterday and has decided to continue the chemo. He did not have any side effects with the chemo. and it may slow down the growth of the tumor. Will check the schedule and put him on for next week. Objective - Vital Signs/Intake and Output Vital Signs (last 24 hours): Temp Pulse Resp BP Pulse Ox 98.6 F 84 18 121/82 98 11/29/16 08:15 11/29/16 08:15 11/29/16 08:15 11/29/16 08:15 11/29/16 08:15 - Medications Medications: Current Medications Albuterol/Ipratropium (Duoneb 3 Mg/0.5 Mg (3 Ml) Ud) 3 ml INH TID [facility] Last Admin: 11/29/16 08:07 Dose: Not Given Alprazolam (Xanax) 0.5 mg PO TID PRN PRN Reason: Anxiety Last Admin: 11/28/16 20:41 Dose: 0.5 mg Alprazolam (Xanax) 1 mg PO TID [facility] Last Admin: 11/29/16 09:00 Dose: 1 mg Calcium Carbonate (Oscal) 500 mg PO BID [facility] Last Admin: 11/29/16 09:01 Dose: 500 mg Docusate Sodium (Colace) 200 mg PO DAILY [facility] Last Admin: 11/29/16 09:01 Dose: 200 mg Home Med (Oxycodone Hcl/Acetaminophen [Endocet 10-325 Mg Tablet]) 1 tab PO Q6H PRN PRN Reason: Pain, severe (8-10) Hydromorphone HCl (Dilaudid) 5 mg IVP Q4 [facility] Last Admin: 11/29/16 09:00 Dose: 5 mg Methadone HCl (Methadone) 10 mg PO Q4 [facility] Last Admin: 11/29/16 08:59 Dose: 10 mg Ondansetron HCl (Zofran Inj) 4 mg IVP Q4 PRN PRN Reason: Nausea/Vomiting Last Admin: 11/27/16 04:13 Dose: 4 mg - Labs Labs: 11/27/16 11:50 11/27/16 04:00 PT 14.0 Seconds (9.8-13.1) H 11/26/16 22:19 INR 1.2 (0.9-1.2) 11/26/16 22:19 APTT 33.7 Seconds (25.6-37.1) 11/26/16 22:19
--- NOTE | 2016-11-29 14:18 | CP.PCM.PN ---
Subjective - Date & Time of Evaluation Date of Evaluation: 11/29/16 Time of Evaluation: 12:00 - Subjective Subjective: F/U Chest wall and TMJ pain. Maxillo-Facial, Mandible pain , R Hemithorax pain Objective - Vital Signs/Intake and Output Vital Signs (last 24 hours): Temp Pulse Resp BP Pulse Ox 97.7 F 103 H 18 109/63 98 11/29/16 12:28 11/29/16 12:28 11/29/16 12:28 11/29/16 12:28 11/29/16 12:28 - Medications Medications: Current Medications Albuterol/Ipratropium (Duoneb 3 Mg/0.5 Mg (3 Ml) Ud) 3 ml INH TID [facility] Last Admin: 11/29/16 08:07 Dose: Not Given Alprazolam (Xanax) 0.5 mg PO TID PRN PRN Reason: Anxiety Last Admin: 11/28/16 20:41 Dose: 0.5 mg Alprazolam (Xanax) 1 mg PO TID [facility] Last Admin: 11/29/16 12:53 Dose: 1 mg Calcium Carbonate (Oscal) 500 mg PO BID [facility] Last Admin: 11/29/16 09:01 Dose: 500 mg Docusate Sodium (Colace) 200 mg PO DAILY [facility] Last Admin: 11/29/16 09:01 Dose: 200 mg Home Med (Oxycodone Hcl/Acetaminophen [Endocet 10-325 Mg Tablet]) 1 tab PO Q6H PRN PRN Reason: Pain, severe (8-10) Hydromorphone HCl (Dilaudid) 5 mg IVP Q4 [facility] Last Admin: 11/29/16 12:54 Dose: 5 mg Methadone HCl (Methadone) 10 mg PO Q4 [facility] Last Admin: 11/29/16 12:53 Dose: 10 mg Ondansetron HCl (Zofran Inj) 4 mg IVP Q4 PRN PRN Reason: Nausea/Vomiting Last Admin: 11/29/16 13:01 Dose: 4 mg - Labs Labs: 11/27/16 11:50 11/27/16 04:00 PT 14.0 Seconds (9.8-13.1) H 11/26/16 22:19 INR 1.2 (0.9-1.2) 11/26/16 22:19 APTT 33.7 Seconds (25.6-37.1) 11/26/16 22:19 - Constitutional Appears: No Acute Distress, Chronically Ill - Head Exam Head Exam: NORMAL INSPECTION - Eye Exam Eye Exam: PERRL - ENT Exam Additional comments: Tenderness maxillofacial, supraorbital, mandible. - Neck Exam Neck Exam: Normal Inspection - Respiratory Exam Respiratory Exam: Chest Wall Tenderness (Right chest wall and posterior.), Clear to Ausculation Bilateral Additional comments: tenderness R anterior ribs and R Scapula - Cardiovascular Exam Cardiovascular Exam: REGULAR RHYTHM - GI/Abdominal Exam GI & Abdominal Exam: Soft, Normal Bowel Sounds - Extremities Exam Extremities Exam: Normal Inspection - Back Exam Back Exam: tenderness (L-S) - Neurological Exam Neurological Exam: Alert, Oriented x3. absent: Motor Sensory Deficit - Psychiatric Exam Psychiatric exam: Anxious, Depressed - Skin Skin Exam: Warm Assessment and Plan (1) Chest wall pain, chronic Status: Acute (2) Temporomandibular joint (TMJ) pain Status: Acute (3) Maxillary pain Status: Acute (4) Mandible pain Status: Acute (5) Malignant neoplasm metastatic to liver Status: Acute (6) Stage 4 lung cancer Assessment & Plan: Primary Lung , metastasis intrathoracic , Liver , TMJ , Frontal bone Status: Acute (7) Anxiety Status: Chronic - Assessment and Plan (Free Text) Plan: Continue Dilaudid , Methadone and rest of treatment.
[2016-11-30] MEDS: Albuterol-Ipratrop 3 mg / 0.5 (3 ml) UD INH SCH ×2 (13:50→20:15)
--- NOTE | 2016-11-30 14:56 | CP.PCM.PN ---
Subjective - Date & Time of Evaluation Date of Evaluation: 11/30/16 Time of Evaluation: 12:30 - Subjective Subjective: F/U Chest wall pain. Pt c/o of TMJ pain , R chest wall pain , R Scapular pain Objective - Vital Signs/Intake and Output Vital Signs (last 24 hours): Temp Pulse Resp BP Pulse Ox 97.7 F 94 H 18 121/83 97 11/30/16 12:00 11/30/16 12:00 11/30/16 12:00 11/30/16 12:00 11/30/16 12:00 - Medications Medications: Current Medications Albuterol/Ipratropium (Duoneb 3 Mg/0.5 Mg (3 Ml) Ud) 3 ml INH TID [facility] Last Admin: 11/30/16 13:50 Dose: Not Given Alprazolam (Xanax) 0.5 mg PO TID PRN PRN Reason: Anxiety Last Admin: 11/28/16 20:41 Dose: 0.5 mg Alprazolam (Xanax) 1 mg PO TID [facility] Last Admin: 11/30/16 12:48 Dose: 1 mg Calcium Carbonate (Oscal) 500 mg PO BID [facility] Last Admin: 11/30/16 09:10 Dose: 500 mg Docusate Sodium (Colace) 200 mg PO DAILY [facility] Last Admin: 11/30/16 09:09 Dose: 200 mg Home Med (Oxycodone Hcl/Acetaminophen [Endocet 10-325 Mg Tablet]) 1 tab PO Q6H PRN PRN Reason: Pain, severe (8-10) Hydromorphone HCl (Dilaudid) 5 mg IVP Q4 [facility] Last Admin: 11/30/16 12:48 Dose: 5 mg Methadone HCl (Methadone) 10 mg PO Q4 [facility] Last Admin: 11/30/16 12:47 Dose: 10 mg Ondansetron HCl (Zofran Inj) 4 mg IVP Q4 PRN PRN Reason: Nausea/Vomiting Last Admin: 11/30/16 09:11 Dose: 4 mg - Labs Labs: 11/27/16 11:50 11/27/16 04:00 PT 14.0 Seconds (9.8-13.1) H 11/26/16 22:19 INR 1.2 (0.9-1.2) 11/26/16 22:19 APTT 33.7 Seconds (25.6-37.1) 11/26/16 22:19 - Constitutional Appears: No Acute Distress, Chronically Ill - Head Exam Head Exam: NORMAL INSPECTION - Eye Exam Eye Exam: PERRL - ENT Exam Additional comments: Tenderness Maxillofacial, supraorbital, TMJ , mandible. - Neck Exam Neck Exam: Normal Inspection - Respiratory Exam Respiratory Exam: Chest Wall Tenderness (Right and posterior chest wall.), Decreased Breath Sounds - Cardiovascular Exam Cardiovascular Exam: REGULAR RHYTHM - GI/Abdominal Exam GI & Abdominal Exam: Soft, Normal Bowel Sounds - Extremities Exam Extremities Exam: Normal Inspection - Back Exam Back Exam: tenderness (L-S) - Neurological Exam Neurological Exam: Alert, Awake, Oriented x3. absent: Motor Sensory Deficit - Psychiatric Exam Psychiatric exam: Anxious, Depressed - Skin Skin Exam: Warm Assessment and Plan (1) Chest wall pain, chronic Status: Acute (2) Temporomandibular joint (TMJ) pain Status: Acute (3) Maxillary pain Status: Acute (4) Mandible pain Status: Acute (5) Malignant neoplasm metastatic to liver Status: Acute (6) Stage 4 lung cancer Status: Acute (7) Anxiety Status: Chronic - Assessment and Plan (Free Text) Plan: Continue Dilaudid and rest of Tx, Pt refused nebulizer Tx. Pt agree to have Chemotherapy tomorrow.
[2016-12-01] MEDS: Albuterol-Ipratrop 3 mg / 0.5 (3 ml) UD INH SCH ×3 (08:02→18:41)
[2016-12-01] MEDS ORDERED: Dexamethasone 10 MG in Sodium Chloride 0.9% 50 ML IVPB ONE (10:19)
[2016-12-01 10:49] VITALS: BMI 25.9
[2016-12-01] MEDS ORDERED: APREPITANT 125 MG CAP PO SCH (11:00)
[2016-12-01] MEDS ORDERED: Lidocaine/Prilocaine CREAM 5GM TP SCH (11:00)
[2016-12-01] MEDS ORDERED: DiphenhydrAMINE 50 mg/ml Inj IVP SCH (11:00)
[2016-12-01 11:06] LABS: BASO % 0.4 % (0.0-2.0); EOS % 0.2 % (0.0-4.0); HEMATOCRIT 29.5 % (35.0-51.0); LYMPH # 0.7 K/uL (1.0-4.3); LYMPH % 12.1 % (20.0-40.0); MEAN CELL VOLUME 82.3 fl (80.0-94.0); MEAN CORPUSCULAR HEMOGLOBIN 27.6 pg (27.0-31.0); MEAN CORPUSCULAR HGB CONC 33.6 g/dL (33.0-37.0); MEAN PLATELET VOLUME 8.4 fl (7.2-11.7); MONO # 0.6 K/uL (0.0-0.8); MONO % 9.9 % (0.0-10.0); NEUT # 4.4 K/uL (1.8-7.0); NEUT % 77.4 % (50.0-75.0); NRBC % 0.1 % (0.0-0.0); RED CELL DISTRIBUTION WIDTH 18.2 % (11.5-14.5); WHITE BLOOD COUNT 5.7 K/uL (4.8-10.8)
[2016-12-01] MEDS: Sodium Chloride 0.9% 500 ML IV SCH ×3 (11:26→18:41)
[2016-12-01 11:29] LABS: ALB/GLOB RATIO 1.2 (1.0-2.1); BILIRUBIN,TOTAL 0.5 mg/dl (0.2-1.3); CALCIUM 10.8 mg/dL (8.4-10.2); POTASSIUM 4.5 MMOL/L (3.6-5.0); TOTAL PROTEIN 7.4 G/DL (6.3-8.2)
[2016-12-01] MEDS ORDERED: SODIUM CHLORIDE 0.9% IV SCH (11:45)
[2016-12-01] MEDS ORDERED: CISPLATIN IV SCH (11:45)
--- NOTE | 2016-12-01 12:29 | CP.PCM.PN ---
Subjective - Date & Time of Evaluation Date of Evaluation: 12/01/16 Time of Evaluation: 12:20 - Subjective Subjective: Pt has decided to go ahead with chemotherapy. We will transfer him to the 6th floor and start chemo as soon as possible. since he has very advanced disease and diffuse metastasis will give him as much analgesics as needed to control his pain. Will give him Cisplatin today and etoposide for the 3 days. Objective - Vital Signs/Intake and Output Vital Signs (last 24 hours): Temp Pulse Resp BP Pulse Ox 98.4 F 97 H 20 120/79 94 L 12/01/16 09:00 12/01/16 09:00 12/01/16 09:00 12/01/16 09:00 12/01/16 09:00 - Medications Medications: Current Medications Albuterol/Ipratropium (Duoneb 3 Mg/0.5 Mg (3 Ml) Ud) 3 ml INH TID [facility] Last Admin: 12/01/16 08:02 Dose: Not Given Alprazolam (Xanax) 0.5 mg PO TID PRN PRN Reason: Anxiety Last Admin: 11/28/16 20:41 Dose: 0.5 mg Alprazolam (Xanax) 1 mg PO TID [facility] Last Admin: 12/01/16 09:37 Dose: 1 mg Calcium Carbonate (Oscal) 500 mg PO BID [facility] Last Admin: 12/01/16 09:31 Dose: 500 mg Dexamethasone (Decadron Inj) 10 mg IVP ONCE [facility] Stop: 12/01/16 17:00 Last Admin: 12/01/16 11:32 Dose: 10 mg Diphenhydramine HCl (Benadryl) 25 mg IVP ONCE [facility] Stop: 12/01/16 17:00 Last Admin: 12/01/16 11:33 Dose: 25 mg Docusate Sodium (Colace) 200 mg PO DAILY [facility] Last Admin: 12/01/16 09:30 Dose: 200 mg Famotidine (Pepcid) 20 mg IVP ONCE [facility] Stop: 12/01/16 17:00 Last Admin: 12/01/16 11:25 Dose: 20 mg Heparin Sodium (Porcine) (Heparin Lock Flush) 500 units IVF ONCE [facility] Stop: 12/01/16 17:00 Home Med (Oxycodone Hcl/Acetaminophen [Endocet 10-325 Mg Tablet]) 1 tab PO Q6H PRN PRN Reason: Pain, severe (8-10) Hydromorphone HCl (Dilaudid) 5 mg IVP Q4 [facility] Last Admin: 12/01/16 09:37 Dose: 5 mg Cisplatin 150 mg/ Sodium (Chloride) 650 mls @ 433.333 mls/hr IV ONCE [facility] PRN Reason: As Directed Stop: 12/01/16 17:00 Sodium Chloride (Sodium Chloride 0.9%) 500 mls @ 125 mls/hr IV .Q4H [facility] Last Admin: 12/01/16 11:26 Dose: 125 mls/hr Etoposide 190 mg/ Sodium (Chloride) 509.5 mls @ 339.667 mls/hr IV ONCE [facility] PRN Reason: As Directed Stop: 12/01/16 17:00 Ondansetron HCl 16 mg/ Sodium (Chloride) 58 mls @ 116 mls/hr IVPB ONCE [facility] Stop: 12/01/16 17:00 Last Admin: 12/01/16 11:25 Dose: 116 mls/hr Lidocaine/Prilocaine (Lidocaine/Prilocaine 2.5%-2.5%) 1 applic TP ONCE [facility] Stop: 12/01/16 17:00 Methadone HCl (Methadone) 10 mg PO Q4 [facility] Last Admin: 12/01/16 09:37 Dose: 10 mg Ondansetron HCl (Zofran Inj) 4 mg IVP Q4 PRN PRN Reason: Nausea/Vomiting Last Admin: 12/01/16 05:05 Dose: 4 mg - Labs Labs: 12/01/16 11:01 12/01/16 11:01 PT 14.0 Seconds (9.8-13.1) H 11/26/16 22:19 INR 1.2 (0.9-1.2) 11/26/16 22:19 APTT 33.7 Seconds (25.6-37.1) 11/26/16 22:19
[2016-12-01] MEDS ORDERED: Mannitol 12.5 gm/50 ml Inj IV ONE ×3 (12:59→13:00)
--- NOTE | 2016-12-01 14:25 | CP.PCM.PN ---
Subjective - Date & Time of Evaluation Date of Evaluation: 12/01/16 Time of Evaluation: 12:00 - Subjective Subjective: F/U Chest wall pain. Pt c/o of TMJ pain, R chest wall pain. Objective - Vital Signs/Intake and Output Vital Signs (last 24 hours): Temp Pulse Resp BP Pulse Ox 98.4 F 97 H 20 120/79 94 L 12/01/16 09:00 12/01/16 09:00 12/01/16 09:00 12/01/16 09:00 12/01/16 09:00 - Medications Medications: Current Medications Albuterol/Ipratropium (Duoneb 3 Mg/0.5 Mg (3 Ml) Ud) 3 ml INH TID [facility] Last Admin: 12/01/16 13:41 Dose: Not Given Alprazolam (Xanax) 0.5 mg PO TID PRN PRN Reason: Anxiety Last Admin: 11/28/16 20:41 Dose: 0.5 mg Alprazolam (Xanax) 1 mg PO TID [facility] Last Admin: 12/01/16 13:21 Dose: 1 mg Calcium Carbonate (Oscal) 500 mg PO BID [facility] Last Admin: 12/01/16 09:31 Dose: 500 mg Dexamethasone (Decadron Inj) 10 mg IVP ONCE [facility] Stop: 12/01/16 17:00 Last Admin: 12/01/16 11:32 Dose: 10 mg Diphenhydramine HCl (Benadryl) 25 mg IVP ONCE [facility] Stop: 12/01/16 17:00 Last Admin: 12/01/16 11:33 Dose: 25 mg Docusate Sodium (Colace) 200 mg PO DAILY [facility] Last Admin: 12/01/16 09:30 Dose: 200 mg Famotidine (Pepcid) 20 mg IVP ONCE [facility] Stop: 12/01/16 17:00 Last Admin: 12/01/16 11:25 Dose: 20 mg Heparin Sodium (Porcine) (Heparin Lock Flush) 500 units IVF ONCE [facility] Stop: 12/01/16 17:00 Home Med (Oxycodone Hcl/Acetaminophen [Endocet 10-325 Mg Tablet]) 1 tab PO Q6H PRN PRN Reason: Pain, severe (8-10) Hydromorphone HCl (Dilaudid) 5 mg IVP Q4 [facility] Last Admin: 12/01/16 13:16 Dose: 5 mg Cisplatin 150 mg/ Sodium (Chloride) 650 mls @ 433.333 mls/hr IV ONCE [facility] PRN Reason: As Directed Stop: 12/01/16 17:00 Last Admin: 12/01/16 14:00 Dose: 433.333 mls/hr Sodium Chloride (Sodium Chloride 0.9%) 500 mls @ 125 mls/hr IV .Q4H [facility] Last Admin: 12/01/16 11:26 Dose: 125 mls/hr Etoposide 190 mg/ Sodium (Chloride) 509.5 mls @ 339.667 mls/hr IV ONCE [facility] PRN Reason: As Directed Stop: 12/01/16 17:00 Ondansetron HCl 16 mg/ Sodium (Chloride) 58 mls @ 116 mls/hr IVPB ONCE [facility] Stop: 12/01/16 17:00 Last Admin: 12/01/16 11:25 Dose: 116 mls/hr Lidocaine/Prilocaine (Lidocaine/Prilocaine 2.5%-2.5%) 1 applic TP ONCE [facility] Stop: 12/01/16 17:00 Methadone HCl (Methadone) 10 mg PO Q4 [facility] Last Admin: 12/01/16 13:19 Dose: 10 mg Ondansetron HCl (Zofran Inj) 4 mg IVP Q4 PRN PRN Reason: Nausea/Vomiting Last Admin: 12/01/16 05:05 Dose: 4 mg - Labs Labs: 12/01/16 11:01 12/01/16 11:01 PT 14.0 Seconds (9.8-13.1) H 11/26/16 22:19 INR 1.2 (0.9-1.2) 11/26/16 22:19 APTT 33.7 Seconds (25.6-37.1) 11/26/16 22:19 - Constitutional Appears: No Acute Distress, Chronically Ill - Head Exam Head Exam: NORMAL INSPECTION - Eye Exam Eye Exam: PERRL - ENT Exam Additional comments: Tenderness TMJ - Neck Exam Neck Exam: Normal Inspection - Respiratory Exam Respiratory Exam: Chest Wall Tenderness (right and posterior chest wall.), Rhonchi (b/l) - Cardiovascular Exam Cardiovascular Exam: REGULAR RHYTHM - GI/Abdominal Exam GI & Abdominal Exam: Soft, Normal Bowel Sounds - Extremities Exam Extremities Exam: Normal Inspection - Back Exam Back Exam: tenderness (L-S) - Neurological Exam Neurological Exam: Alert, Oriented x3. absent: Motor Sensory Deficit - Psychiatric Exam Psychiatric exam: Anxious, Depressed - Skin Skin Exam: Normal Color, Warm Assessment and Plan (1) Chest wall pain, chronic Status: Acute (2) Temporomandibular joint (TMJ) pain Status: Acute (3) Maxillary pain Status: Acute (4) Mandible pain Status: Acute (5) Malignant neoplasm metastatic to liver Status: Acute (6) Stage 4 lung cancer Status: Acute (7) Anxiety Status: Chronic - Assessment and Plan (Free Text) Plan: For Chemotherapy today, continue Dilaudid , Methadone and current Tx., Hematology f/u appreciated.
--- NOTE | 2016-12-01 16:43 | CP.PCM.PCO ---
Physician Communication Note - Physician Communication Note Physician Communication Note: patient with intermittent episodes of confusion during chemotherapy infusio Subjective - Physician Review Subjective (Free Text): 12/01/16 16:39 Patient displayed intermittent episodes of confusion during his chemotherapy infusion, raised his voice at nursing staff and myself, asking for his belongings and holding on to his bags, accusing nurse of taking his stuff, wanted to walk out of infusion center. After explaining to patient the procedure for his chemotherapy and accompanying patient to his room on , patient was slightly more agreeable. Due to his confusion, his Dilaudid was decreased to 4mg Q4 for pain management.
[2016-12-02] MEDS: Sodium Chloride 0.9% 500 ML IV SCH ×7 (03:23→18:35)
[2016-12-02] MEDS: Albuterol-Ipratrop 3 mg / 0.5 (3 ml) UD INH SCH ×3 (07:19→19:06)
[2016-12-02] MEDS ORDERED: Dexamethasone 10 MG in Sodium Chloride 0.9% 50 ML IVPB ONE (09:49)
[2016-12-02] MEDS ORDERED: APREPITANT 80 MG CAP PO ONE (12:15)
[2016-12-02] MEDS ORDERED: DiphenhydrAMINE 50 mg/ml Inj IVP ONE (12:30)
--- NOTE | 2016-12-02 12:33 | CP.PCM.PN ---
Subjective - Date & Time of Evaluation Date of Evaluation: 12/02/16 Time of Evaluation: 12:23 - Subjective Subjective: Pt was started on a chemotherapy yesterday. He had no problems with chemotherapy but after getting his analgesics he became very belligerent, verbally abusing the nurses and was paranoid that someone was stealing his stuff. He needed a one on one observation.. This morning he could not remember any thing. was still a little confused and aggressive. He however still wants his chemotherapy. We have reduced his analgesic dose and he seems better with this dose He will be given etoposide today and tomorrow Objective - Vital Signs/Intake and Output Vital Signs (last 24 hours): Temp Pulse Resp BP Pulse Ox 97.5 F L 82 20 117/72 96 12/02/16 08:01 12/02/16 08:01 12/02/16 08:01 12/02/16 08:01 12/02/16 08:01 - Medications Medications: Current Medications Albuterol/Ipratropium (Duoneb 3 Mg/0.5 Mg (3 Ml) Ud) 3 ml INH RTID [facility] Alprazolam (Xanax) 0.5 mg PO TID PRN PRN Reason: Anxiety Last Admin: 11/28/16 20:41 Dose: 0.5 mg Alprazolam (Xanax) 1 mg PO TID [facility] Last Admin: 12/02/16 09:59 Dose: 1 mg Calcium Carbonate (Oscal) 500 mg PO BID [facility] Last Admin: 12/02/16 12:02 Dose: 500 mg Dexamethasone (Decadron Inj) 10 mg IVP ONCE ONE Stop: 12/02/16 12:31 Diphenhydramine HCl (Benadryl) 25 mg IVP ONCE [facility] Stop: 12/02/16 12:31 Docusate Sodium (Colace) 200 mg PO DAILY [facility] Last Admin: 12/02/16 12:02 Dose: 200 mg Enoxaparin Sodium (Lovenox) 40 mg SC DAILY [facility] PRN Reason: Protocol Home Med (Oxycodone Hcl/Acetaminophen [Endocet 10-325 Mg Tablet]) 1 tab PO Q6H PRN PRN Reason: Pain, severe (8-10) Hydromorphone HCl (Dilaudid) 3 mg IVP Q4 [facility] Last Admin: 12/02/16 09:58 Dose: 3 mg Sodium Chloride (Sodium Chloride 0.9%) 500 mls @ 125 mls/hr IV .Q4H [facility] Last Admin: 12/02/16 11:59 Dose: Not Given Sodium Chloride (Sodium Chloride 0.9%) 500 mls @ 125 mls/hr IV .Q4H [facility] Etoposide 190 mg/ Sodium (Chloride) 509.5 mls @ 0 mls/hr IV ONCE ONE PRN Reason: As Directed Stop: 12/02/16 09:54 Ondansetron HCl 16 mg/ Sodium (Chloride) 58 mls @ 116 mls/hr IVPB ONCE [facility] Stop: 12/02/16 12:44 Methadone HCl (Methadone) 10 mg PO Q4 [facility] Last Admin: 12/02/16 09:59 Dose: 10 mg Ondansetron HCl (Zofran Inj) 4 mg IVP Q4 PRN PRN Reason: Nausea/Vomiting Last Admin: 12/01/16 05:05 Dose: 4 mg - Labs Labs: 12/01/16 11:01 12/01/16 11:01 PT 14.0 Seconds (9.8-13.1) H 11/26/16 22:19 INR 1.2 (0.9-1.2) 11/26/16 22:19 APTT 33.7 Seconds (25.6-37.1) 11/26/16 22:19
--- NOTE | 2016-12-02 12:53 | CP.PCM.PN ---
Subjective - Date & Time of Evaluation Date of Evaluation: 12/02/16 Time of Evaluation: 12:40 - Subjective Subjective: F/U Chest wall pain. Pt appear calm, cooperative, on 1:1, alert, oriented, c/o of pain in the TMJ joints, no c/o of pain in the R hemithorax. Pt was very agitated yesrerday with altered behavior , walking around the room with IV tubing being pulled, also walked in to the elevator dressed to go home, Security brought Pt back to his room and was placed in 1:1 for safety. Objective - Vital Signs/Intake and Output Vital Signs (last 24 hours): Temp Pulse Resp BP Pulse Ox 97.5 F L 82 20 117/72 96 12/02/16 08:01 12/02/16 08:01 12/02/16 08:01 12/02/16 08:01 12/02/16 08:01 - Medications Medications: Current Medications Albuterol/Ipratropium (Duoneb 3 Mg/0.5 Mg (3 Ml) Ud) 3 ml INH RTID [facility] Alprazolam (Xanax) 0.5 mg PO TID PRN PRN Reason: Anxiety Last Admin: 11/28/16 20:41 Dose: 0.5 mg Alprazolam (Xanax) 1 mg PO TID [facility] Last Admin: 12/02/16 09:59 Dose: 1 mg Calcium Carbonate (Oscal) 500 mg PO BID [facility] Last Admin: 12/02/16 12:02 Dose: 500 mg Docusate Sodium (Colace) 200 mg PO DAILY [facility] Last Admin: 12/02/16 12:02 Dose: 200 mg Enoxaparin Sodium (Lovenox) 40 mg SC DAILY [facility] PRN Reason: Protocol Home Med (Oxycodone Hcl/Acetaminophen [Endocet 10-325 Mg Tablet]) 1 tab PO Q6H PRN PRN Reason: Pain, severe (8-10) Hydromorphone HCl (Dilaudid) 3 mg IVP Q4 [facility] Last Admin: 12/02/16 09:58 Dose: 3 mg Sodium Chloride (Sodium Chloride 0.9%) 500 mls @ 125 mls/hr IV .Q4H [facility] Last Admin: 12/02/16 11:59 Dose: Not Given Sodium Chloride (Sodium Chloride 0.9%) 500 mls @ 125 mls/hr IV .Q4H [facility] Etoposide 190 mg/ Sodium (Chloride) 509.5 mls @ 509.5 mls/hr IV ONCE ONE PRN Reason: As Directed Stop: 12/02/16 14:29 Methadone HCl (Methadone) 10 mg PO Q4 [facility] Last Admin: 12/02/16 09:59 Dose: 10 mg Ondansetron HCl (Zofran Inj) 4 mg IVP Q4 PRN PRN Reason: Nausea/Vomiting Last Admin: 12/01/16 05:05 Dose: 4 mg - Labs Labs: 12/01/16 11:01 12/01/16 11:01 PT 14.0 Seconds (9.8-13.1) H 11/26/16 22:19 INR 1.2 (0.9-1.2) 11/26/16 22:19 APTT 33.7 Seconds (25.6-37.1) 11/26/16 22:19 - Constitutional Appears: No Acute Distress, Chronically Ill - Head Exam Head Exam: NORMAL INSPECTION - Eye Exam Eye Exam: PERRL - ENT Exam Additional comments: Minimal tenderness TMJ - Neck Exam Neck Exam: Normal Inspection - Respiratory Exam Respiratory Exam: Rhonchi (at bases). absent: Chest Wall Tenderness - Cardiovascular Exam Cardiovascular Exam: REGULAR RHYTHM - GI/Abdominal Exam GI & Abdominal Exam: Soft, Normal Bowel Sounds - Extremities Exam Extremities Exam: Normal Inspection - Back Exam Back Exam: tenderness (L-S) - Neurological Exam Neurological Exam: Alert, Oriented x3. absent: Motor Sensory Deficit - Psychiatric Exam Psychiatric exam: Anxious, Depressed - Skin Skin Exam: Normal Color, Warm Assessment and Plan (1) Chest wall pain, chronic Assessment & Plan: RUL Ca with intrathoracic metastasis Status: Acute (2) Temporomandibular joint (TMJ) pain Assessment & Plan: metastasis Status: Acute (3) Maxillary pain Assessment & Plan: frontal bone metastasis Status: Acute (4) Mandible pain Assessment & Plan: metastasis Status: Acute (5) Malignant neoplasm metastatic to liver Status: Acute (6) Stage 4 lung cancer Status: Acute (7) Anxiety Status: Chronic - Assessment and Plan (Free Text) Plan: Continue 1:1, Pt had Chemo yesterday to have 2nd chemo today and one more tomorrow to complete the course of 3 Tx, continue Dilaudid 3 mg IV q 4, Methadone 10 mg po q 4 and rest of Tx,
--- NOTE | 2016-12-02 15:17 | CP.PCM.CON ---
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 Patient came in to [facility] on 11/[facility]/16 to be evaluated for R chest pain , onset 2 days [employer] [employer] with no relief. According to reports patient has been on admission started on chemotherapy for metastsis yesterday after chemotherapy patient became increasingly angry , irritable and confused, pattoatient had ient had to be placed on 1;1observation for risk of hurting self on evaluation patient however oriented x3, cooperative with interview denied any thoughts to hurt self or others Past Patient History - Infectious Disease Hx of Infectious Diseases: None - Past Medical History & Family History Past Medical History?: Yes - Past Social History Smoking Status: Former Smoker Alcohol: None Drugs: Other (previous use in the past) Home Situation {Lives}: Alone - CARDIAC Hx Cardiac Disorders: Yes Hx Hypercholesterolemia: Yes Hx Hypertension: Yes - PULMONARY Hx Respiratory Disorders: Yes Hx Bronchitis: Yes - NEUROLOGICAL Hx Neurological Disorder: No - HEENT Hx HEENT Problems: No - RENAL Hx Chronic Kidney Disease: No - ENDOCRINE/METABOLIC Hx Endocrine Disorders: No - HEMATOLOGICAL/ONCOLOGICAL Hx Blood Disorders: Yes Hx AIDS: No Hx Anemia: Yes Hx Cancer: Yes Hx Chemotherapy: Yes Hx Hepatitis C: Yes Hx Human Immunodeficiency Virus (HIV): No Hx Metastesis: Yes - INTEGUMENTARY Hx Dermatological Problems: No - MUSCULOSKELETAL/RHEUMATOLOGICAL Hx Musculoskeletal Disorders: Yes (Chest wall pain) Hx Falls: No Hx Fractures: Yes - GASTROINTESTINAL Hx Gastrointestinal Disorders: Yes Hx Hemorrhoids: Yes - GENITOURINARY/GYNECOLOGICAL Hx Genitourinary Disorders: No - PSYCHIATRIC Hx Psychophysiologic Disorder: Yes Hx Anxiety: Yes Hx Substance Use: No - SURGICAL HISTORY Hx Coronary Stent: Yes - ANESTHESIA Hx Anesthesia: Yes Hx Anesthesia Reactions: No Hx Malignant Hyperthermia: No Has any member of the family had a problem w/ anesthesia?: No Meds Allergies/Adverse Reactions: Allergies Allergy/AdvReac Type Severity Reaction Status Date / Time No Known Allergies Allergy Verified 11/26/16 21:10 - Medications Medications: Current Medications Albuterol/Ipratropium (Duoneb 3 Mg/0.5 Mg (3 Ml) Ud) 3 ml INH RTID [facility] Last Admin: 12/02/16 13:31 Dose: Not Given Alprazolam (Xanax) 0.5 mg PO TID PRN PRN Reason: Anxiety Last Admin: 11/28/16 20:41 Dose: 0.5 mg Alprazolam (Xanax) 1 mg PO TID [facility] Last Admin: 12/02/16 14:32 Dose: 1 mg Calcium Carbonate (Oscal) 500 mg PO BID [facility] Last Admin: 12/02/16 12:02 Dose: 500 mg Docusate Sodium (Colace) 200 mg PO DAILY [facility] Last Admin: 12/02/16 12:02 Dose: 200 mg Enoxaparin Sodium (Lovenox) 40 mg SC DAILY [facility] PRN Reason: Protocol Home Med (Oxycodone Hcl/Acetaminophen [Endocet 10-325 Mg Tablet]) 1 tab PO Q6H PRN PRN Reason: Pain, severe (8-10) Hydromorphone HCl (Dilaudid) 3 mg IVP Q4 [facility] Last Admin: 12/02/16 09:58 Dose: 3 mg Sodium Chloride (Sodium Chloride 0.9%) 500 mls @ 125 mls/hr IV .Q4H [facility] Last Admin: 12/02/16 14:48 Dose: Not Given Sodium Chloride (Sodium Chloride 0.9%) 500 mls @ 125 mls/hr IV .Q4H [facility] Methadone HCl (Methadone) 10 mg PO Q4 [facility] Last Admin: 12/02/16 14:31 Dose: 10 mg Ondansetron HCl (Zofran Inj) 4 mg IVP Q4 PRN PRN Reason: Nausea/Vomiting Last Admin: 12/01/16 05:05 Dose: 4 mg Physical Exam - Psychiatric Exam Psychiatric exam: Anxious, Normal Affect Additional comments: patient cooperative with interview good eye contact speech normal, no abnormal movement mood reported tired affect appropriate to thought content denied delusions or hallucinations no perceptual disturbances denied suicidal or homicidal ideations fair insight and judgment Results - Vital Signs Recent Vital Signs: Last Vital Signs Temp 97.5 F L 12/02/16 08:01 Pulse 82 12/02/16 08:01 Resp 20 12/02/16 08:01 BP 117/72 12/02/16 08:01 Pulse Ox 96 12/02/16 08:01 - Labs Result Diagrams: 12/01/16 11:01 12/01/16 11:01 Assessment & Plan - Assessment and Plan (Free Text) Assessment: adjustment disorder acute with anxiety patient at current mental status alert awke oriented to person place and time denied any thoughts to hurt self or others discontinue 1:1 observationas patient is not danger to self or others at current mental status jason
[2016-12-02] MEDS: Enoxaparin 40 mg Syringe SC SCH (15:59)
[2016-12-03] MEDS: Sodium Chloride 0.9% 500 ML IV SCH ×5 (05:00→20:39)
[2016-12-03] MEDS: Albuterol-Ipratrop 3 mg / 0.5 (3 ml) UD INH SCH ×3 (07:47→19:06)
[2016-12-03] MEDS: Enoxaparin 40 mg Syringe SC SCH (09:01)
--- NOTE | 2016-12-03 09:10 | CP.PCM.PN ---
Subjective - Date & Time of Evaluation Date of Evaluation: 12/03/16 Time of Evaluation: 09:08 - Subjective Subjective: Pt is still very confused, but not belligerent like he was 2 days ago. He has received 2 doses of etoposide so far the last one will be given today. He cvan then be discharged with orders to return on thursday for a blood test, and chemo in 3 weeks. Objective - Vital Signs/Intake and Output Vital Signs (last 24 hours): Temp Pulse Resp BP Pulse Ox 97.5 F L 75 20 126/83 96 12/03/16 08:47 12/03/16 08:47 12/03/16 08:47 12/03/16 08:47 12/03/16 08:47 - Medications Medications: Current Medications Albuterol/Ipratropium (Duoneb 3 Mg/0.5 Mg (3 Ml) Ud) 3 ml INH RTID [facility] Last Admin: 12/03/16 07:47 Dose: Not Given Alprazolam (Xanax) 0.5 mg PO TID PRN PRN Reason: Anxiety Last Admin: 11/28/16 20:41 Dose: 0.5 mg Alprazolam (Xanax) 1 mg PO TID [facility] Last Admin: 12/02/16 18:02 Dose: 1 mg Calcium Carbonate (Oscal) 500 mg PO BID [facility] Last Admin: 12/03/16 09:02 Dose: 500 mg Docusate Sodium (Colace) 200 mg PO DAILY [facility] Last Admin: 12/03/16 09:01 Dose: 200 mg Enoxaparin Sodium (Lovenox) 40 mg SC DAILY [facility] PRN Reason: Protocol Last Admin: 12/03/16 09:01 Dose: 40 mg Home Med (Oxycodone Hcl/Acetaminophen [Endocet 10-325 Mg Tablet]) 1 tab PO Q6H PRN PRN Reason: Pain, severe (8-10) Hydromorphone HCl (Dilaudid) 3 mg IVP Q4 [facility] Last Admin: 12/03/16 05:25 Dose: 3 mg Sodium Chloride (Sodium Chloride 0.9%) 500 mls @ 125 mls/hr IV .Q4H [facility] Last Admin: 12/02/16 18:35 Dose: Not Given Sodium Chloride (Sodium Chloride 0.9%) 500 mls @ 125 mls/hr IV .Q4H [facility] Last Admin: 12/03/16 08:04 Dose: 125 mls/hr Methadone HCl (Methadone) 10 mg PO Q4 [facility] Last Admin: 12/03/16 05:26 Dose: 10 mg Ondansetron HCl (Zofran Inj) 4 mg IVP Q4 PRN PRN Reason: Nausea/Vomiting Last Admin: 12/01/16 05:05 Dose: 4 mg - Labs Labs: 12/01/16 11:01 12/01/16 11:01 PT 14.0 Seconds (9.8-13.1) H 11/26/16 22:19 INR 1.2 (0.9-1.2) 11/26/16 22:19 APTT 33.7 Seconds (25.6-37.1) 11/26/16 22:19
[2016-12-03] MEDS ORDERED: Dexamethasone 10 MG in Dextrose 5% In Water 50 ML IV ONE (10:28)
[2016-12-03] MEDS ORDERED: DiphenhydrAMINE 50 mg/ml Inj IVP STA (10:28)
[2016-12-03 10:38] LABS: HEMATOCRIT 27.4 % (35.0-51.0); MEAN CELL VOLUME 82.6 fl (80.0-94.0); MEAN CORPUSCULAR HEMOGLOBIN 26.8 pg (27.0-31.0); MEAN CORPUSCULAR HGB CONC 32.4 g/dL (33.0-37.0); RED CELL DISTRIBUTION WIDTH 18.1 % (11.5-14.5)
[2016-12-03 10:44] LABS: CALCIUM 9.6 mg/dL (8.4-10.2); POTASSIUM 4.3 MMOL/L (3.6-5.0)
--- NOTE | 2016-12-03 13:22 | CP.PCM.PN ---
Subjective - Date & Time of Evaluation Date of Evaluation: 12/03/16 Time of Evaluation: 12:10 - Subjective Subjective: F/U Chest wall pain. Pt is calm, off 1:1, no c/o of thoracic pain, minimal pain in TMJ area, feels weak after finished with the chemo , confufsed at times Objective - Vital Signs/Intake and Output Vital Signs (last 24 hours): Temp Pulse Resp BP Pulse Ox 97.5 F L 75 20 126/83 96 12/03/16 08:47 12/03/16 08:47 12/03/16 08:47 12/03/16 08:47 12/03/16 08:47 - Medications Medications: Current Medications Albuterol/Ipratropium (Duoneb 3 Mg/0.5 Mg (3 Ml) Ud) 3 ml INH RTID [facility] Last Admin: 12/03/16 13:18 Dose: Not Given Alprazolam (Xanax) 0.5 mg PO TID PRN PRN Reason: Anxiety Last Admin: 11/28/16 20:41 Dose: 0.5 mg Alprazolam (Xanax) 1 mg PO TID [facility] Last Admin: 12/03/16 09:24 Dose: 1 mg Calcium Carbonate (Oscal) 500 mg PO BID [facility] Last Admin: 12/03/16 09:02 Dose: 500 mg Docusate Sodium (Colace) 200 mg PO DAILY [facility] Last Admin: 12/03/16 09:01 Dose: 200 mg Enoxaparin Sodium (Lovenox) 40 mg SC DAILY [facility] PRN Reason: Protocol Last Admin: 12/03/16 09:01 Dose: 40 mg Home Med (Oxycodone Hcl/Acetaminophen [Endocet 10-325 Mg Tablet]) 1 tab PO Q6H PRN PRN Reason: Pain, severe (8-10) Hydromorphone HCl (Dilaudid) 3 mg IVP Q4 [facility] Last Admin: 12/03/16 09:27 Dose: 3 mg Sodium Chloride (Sodium Chloride 0.9%) 500 mls @ 125 mls/hr IV .Q4H [facility] Last Admin: 12/02/16 18:35 Dose: Not Given Sodium Chloride (Sodium Chloride 0.9%) 500 mls @ 125 mls/hr IV .Q4H [facility] Last Admin: 12/03/16 08:04 Dose: 125 mls/hr Methadone HCl (Methadone) 10 mg PO Q4 [facility] Last Admin: 12/03/16 09:24 Dose: 10 mg Ondansetron HCl (Zofran Inj) 4 mg IVP Q4 PRN PRN Reason: Nausea/Vomiting Last Admin: 12/01/16 05:05 Dose: 4 mg - Labs Labs: 12/03/16 10:30 12/03/16 10:30 PT 14.0 Seconds (9.8-13.1) H 11/26/16 22:19 INR 1.2 (0.9-1.2) 11/26/16 22:19 APTT 33.7 Seconds (25.6-37.1) 11/26/16 22:19 - Constitutional Appears: No Acute Distress, Chronically Ill - Head Exam Head Exam: NORMAL INSPECTION - Eye Exam Eye Exam: PERRL - ENT Exam ENT Exam: Normal Exam Additional comments: Minimal tenderness TMJ - Neck Exam Neck Exam: Normal Inspection - Respiratory Exam Respiratory Exam: Clear to Ausculation Bilateral - Cardiovascular Exam Cardiovascular Exam: REGULAR RHYTHM - GI/Abdominal Exam GI & Abdominal Exam: Soft, Normal Bowel Sounds - Extremities Exam Extremities Exam: Normal Inspection - Back Exam Back Exam: tenderness (L-S) - Neurological Exam Neurological Exam: Alert, Altered (confufsed at times), Oriented x3. absent: Motor Sensory Deficit - Psychiatric Exam Psychiatric exam: Anxious, Depressed - Skin Skin Exam: Normal Color, Warm Assessment and Plan (1) Chest wall pain, chronic Status: Acute (2) Temporomandibular joint (TMJ) pain Status: Acute (3) Maxillary pain Status: Acute (4) Mandible pain Status: Acute (5) Malignant neoplasm metastatic to liver Status: Acute (6) Stage 4 lung cancer Assessment & Plan: Primary RUL with intrathoracic , Liver , Mandibular and frontal bone metastasis with chronic pain Status: Acute (7) GORDY (acute kidney injury) Status: Acute (8) Anxiety Status: Chronic (9) Change in mental status Status: Acute - Assessment and Plan (Free Text) Plan: Continue Dilaudid, Methadone and rest of Tx., increase BUN Creatinine , GORDY , IVF, Renal Consult , f/u BMP am , CT Head
[2016-12-04] MEDS: Sodium Chloride 0.9% 500 ML IV SCH ×3 (00:30→09:46)
[2016-12-04 06:24] LABS: HEMATOCRIT 30.9 % (35.0-51.0); MEAN CELL VOLUME 82.5 fl (80.0-94.0); MEAN CORPUSCULAR HEMOGLOBIN 26.5 pg (27.0-31.0); MEAN CORPUSCULAR HGB CONC 32.1 g/dL (33.0-37.0); RED CELL DISTRIBUTION WIDTH 18.2 % (11.5-14.5); WHITE BLOOD COUNT 7.4 K/uL (4.8-10.8)
[2016-12-04 06:40] LABS: CALCIUM 9.1 mg/dL (8.4-10.2); POTASSIUM 4.7 MMOL/L (3.6-5.0)
[2016-12-04] MEDS: Albuterol-Ipratrop 3 mg / 0.5 (3 ml) UD INH SCH ×3 (07:17→19:37)
[2016-12-04] MEDS: Enoxaparin 40 mg Syringe SC SCH (09:44)
--- NOTE | 2016-12-04 09:49 | CP.PCM.CON ---
History of Present Illness - History of Present Illness History of Present Illness: This patient who is 56 years of age I was called to see him for rising BUN/ creatinine. 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 absent: Chills, Fever - EENT Nose/Mouth/Throat: absent: Epistaxis - Cardiovascular Cardiovascular: Chest Pain. absent: Acrocyanosis, Leg Ulcers, Pedal Edema - Respiratory Respiratory: Cough, Dyspnea, Dyspnea on Exertion - Gastrointestinal Gastrointestinal: absent: Abdominal Pain, Coffee Ground Emesis, Vomiting - Genitourinary Genitourinary: Nocturia - Musculoskeletal Musculoskeletal: Loss of Height, Muscle Weakness. absent: Arthralgias - Neurological Neurological: absent: Abnormal Gait, Focal Weakness, Memory Loss - Endocrine Endocrine: As Per HPI - Hematologic/Lymphatic Hematologic: As Per HPI. absent: Easy Bleeding Past Patient History - Infectious Disease Hx of Infectious Diseases: None - Past Medical History & Family History Past Medical History?: Yes - Past Social History Smoking Status: Former Smoker Alcohol: None Drugs: Other (previous use in the past) Home Situation {Lives}: Alone - CARDIAC Hx Cardiac Disorders: Yes Hx Hypercholesterolemia: Yes Hx Hypertension: Yes - PULMONARY Hx Respiratory Disorders: Yes Hx Bronchitis: Yes - NEUROLOGICAL Hx Neurological Disorder: No - HEENT Hx HEENT Problems: No - RENAL Hx Chronic Kidney Disease: No - ENDOCRINE/METABOLIC Hx Endocrine Disorders: No - HEMATOLOGICAL/ONCOLOGICAL Hx Blood Disorders: Yes Hx AIDS: No Hx Anemia: Yes Hx Cancer: Yes Hx Chemotherapy: Yes Hx Hepatitis C: Yes Hx Human Immunodeficiency Virus (HIV): No Hx Metastesis: Yes - INTEGUMENTARY Hx Dermatological Problems: No - MUSCULOSKELETAL/RHEUMATOLOGICAL Hx Musculoskeletal Disorders: Yes (Chest wall pain) Hx Falls: No Hx Fractures: Yes - GASTROINTESTINAL Hx Gastrointestinal Disorders: Yes Hx Hemorrhoids: Yes - GENITOURINARY/GYNECOLOGICAL Hx Genitourinary Disorders: No - PSYCHIATRIC Hx Psychophysiologic Disorder: Yes Hx Anxiety: Yes Hx Substance Use: No - SURGICAL HISTORY Hx Coronary Stent: Yes - ANESTHESIA Hx Anesthesia: Yes Hx Anesthesia Reactions: No Hx Malignant Hyperthermia: No Has any member of the family had a problem w/ anesthesia?: No Meds Allergies/Adverse Reactions: Allergies Allergy/AdvReac Type Severity Reaction Status Date / Time No Known Allergies Allergy Verified 11/26/16 21:10 - Medications Medications: Current Medications Albuterol/Ipratropium (Duoneb 3 Mg/0.5 Mg (3 Ml) Ud) 3 ml INH RTID [facility] Last Admin: 12/04/16 07:17 Dose: Not Given Alprazolam (Xanax) 0.5 mg PO TID PRN PRN Reason: Anxiety Last Admin: 11/28/16 20:41 Dose: 0.5 mg Alprazolam (Xanax) 1 mg PO TID [facility] Last Admin: 12/03/16 18:20 Dose: 1 mg Calcium Carbonate (Oscal) 500 mg PO BID [facility] Last Admin: 12/04/16 09:45 Dose: 500 mg Docusate Sodium (Colace) 200 mg PO DAILY [facility] Last Admin: 12/04/16 09:45 Dose: 200 mg Enoxaparin Sodium (Lovenox) 40 mg SC DAILY [facility] PRN Reason: Protocol Last Admin: 12/04/16 09:44 Dose: 40 mg Home Med (Oxycodone Hcl/Acetaminophen [Endocet 10-325 Mg Tablet]) 1 tab PO Q6H PRN PRN Reason: Pain, severe (8-10) Hydromorphone HCl (Dilaudid) 3 mg IVP Q4 [facility] Last Admin: 12/04/16 09:44 Dose: 3 mg Sodium Chloride (Sodium Chloride 0.9%) 500 mls @ 125 mls/hr IV .Q4H [facility] Last Admin: 12/04/16 09:46 Dose: 125 mls/hr Methadone HCl (Methadone) 10 mg PO Q4 [facility] Last Admin: 12/04/16 09:45 Dose: 10 mg Ondansetron HCl (Zofran Inj) 4 mg IVP Q4 PRN PRN Reason: Nausea/Vomiting Last Admin: 12/01/16 05:05 Dose: 4 mg Physical Exam - Constitutional Appears: No Acute Distress - ENT Exam ENT Exam: Mucous Membranes Dry - Neck Exam Neck exam: Negative for: Meningismus - Respiratory Exam Respiratory Exam: Rhonchi. absent: Chest Wall Tenderness - Cardiovascular Exam Cardiovascular Exam: absent: JVD, Rubs - GI/Abdominal Exam GI & Abdominal Exam: Normal Bowel Sounds. absent: Diminished Bowel Sounds, Guarding - Extremities Exam Extremities exam: Negative for: calf tenderness - Back Exam Back exam: absent: CVA tenderness (L), CVA tenderness (R) - Neurological Exam Neurological exam: Alert Results - Vital Signs Recent Vital Signs: Last Vital Signs Temp 97.3 F L 12/04/16 08:37 Pulse 72 12/04/16 08:37 Resp 20 12/04/16 08:37 BP 149/82 12/04/16 08:37 Pulse Ox 98 12/04/16 08:37 - Labs Result Diagrams: 12/04/16 06:00 12/04/16 06:00 Labs: Laboratory Results - last 24 hr 12/03/16 12/03/16 12/03/16 10:30 10:30 21:49 WBC 7.0 RBC 3.32 L Hgb 8.9 L Hct 27.4 L MCV 82.6 MCH 26.8 L MCHC 32.4 L RDW 18.1 H Plt Count 150 Sodium 137 Potassium 4.3 Chloride 101 Carbon Dioxide 25 Anion Gap 16 BUN 59 H Creatinine 2.3 H Est GFR ( Amer) 36 Est GFR (Non-Af Amer) 29 POC Glucose (mg/dL) 108 Random Glucose 123 H Calcium 9.6 12/04/16 12/04/16 06:00 06:00 WBC 7.4 RBC 3.74 L Hgb 9.9 L Hct 30.9 L MCV 82.5 MCH 26.5 L MCHC 32.1 L RDW 18.2 H Plt Count 154 Sodium 137 Potassium 4.7 Chloride 100 Carbon Dioxide 23 Anion Gap 18 BUN 74 H Creatinine 2.7 H Est GFR ( Amer) 30 Est GFR (Non-Af Amer) 24 POC Glucose (mg/dL) Random Glucose 99 Calcium 9.1 Assessment & Plan (1) Stage 4 lung cancer Assessment and Plan: Patient appeared to have acute kidney injury. His initial on admission creatinine around 1.4-1.5 and has gone up as high as 2.3. The status post chemotherapy. Medications reviewed patient appears to be dehydrated My recommendation intravenous IV fluid 1 25 mL/h normal saline Serum uric acid Spot urine for sodium osmolality and creatinine Patient also hypercalcemic oncology on board To continue with the fluid and monitor kidney function Status: Acute (2) GORDY (acute kidney injury) Status: Acute
--- NOTE | 2016-12-04 10:15 | CP.PCM.PN ---
Subjective - Date & Time of Evaluation Date of Evaluation: 12/04/16 Time of Evaluation: 10:08 - Subjective Subjective: Pt is very confused today, He is not agitated but cannot complete a sentence. He is on dilaudid 3mg iv q 4 hrs along with methadone, and claims he needs the medicine frequently. We have gradually decreased the dose from 5mg q 4h to 3 mg q4 h. Will try to reduce more so pt is a little more alert. He has finished his chemotherapy, and could be discharged home. Instead of bringing him back tomorrow for his neulasta, will give it this afternoon , and have him come to the Infusion center for Blood work. His creatinine has slowly gone up. He is being hydrated, and encouraged to drink more fluids Objective - Vital Signs/Intake and Output Vital Signs (last 24 hours): Temp Pulse Resp BP Pulse Ox 97.3 F L 72 20 149/82 98 12/04/16 08:37 12/04/16 08:37 12/04/16 08:37 12/04/16 08:37 12/04/16 08:37 Intake and Output: 12/04/16 12/04/16 06:59 18:59 Intake Total 1740 Balance 1740 - Medications Medications: Current Medications Albuterol/Ipratropium (Duoneb 3 Mg/0.5 Mg (3 Ml) Ud) 3 ml INH RTID [facility] Last Admin: 12/04/16 07:17 Dose: Not Given Alprazolam (Xanax) 0.5 mg PO TID PRN PRN Reason: Anxiety Last Admin: 11/28/16 20:41 Dose: 0.5 mg Alprazolam (Xanax) 1 mg PO TID [facility] Last Admin: 12/03/16 18:20 Dose: 1 mg Calcium Carbonate (Oscal) 500 mg PO BID [facility] Last Admin: 12/04/16 09:45 Dose: 500 mg Docusate Sodium (Colace) 200 mg PO DAILY [facility] Last Admin: 12/04/16 09:45 Dose: 200 mg Enoxaparin Sodium (Lovenox) 40 mg SC DAILY [facility] PRN Reason: Protocol Last Admin: 12/04/16 09:44 Dose: 40 mg Home Med (Oxycodone Hcl/Acetaminophen [Endocet 10-325 Mg Tablet]) 1 tab PO Q6H PRN PRN Reason: Pain, severe (8-10) Hydromorphone HCl (Dilaudid) 3 mg IVP Q4 [facility] Last Admin: 12/04/16 09:44 Dose: 3 mg Sodium Chloride (Sodium Chloride 0.9%) 500 mls @ 125 mls/hr IV .Q4H [facility] Last Admin: 12/04/16 09:46 Dose: 125 mls/hr Methadone HCl (Methadone) 10 mg PO Q4 [facility] Last Admin: 12/04/16 09:45 Dose: 10 mg Ondansetron HCl (Zofran Inj) 4 mg IVP Q4 PRN PRN Reason: Nausea/Vomiting Last Admin: 12/01/16 05:05 Dose: 4 mg - Labs Labs: 12/04/16 06:00 12/04/16 06:00 PT 14.0 Seconds (9.8-13.1) H 11/26/16 22:19 INR 1.2 (0.9-1.2) 11/26/16 22:19 APTT 33.7 Seconds (25.6-37.1) 11/26/16 22:19
[2016-12-04] MEDS ORDERED: Zoledronic Acid 3 MG in Sodium Chloride 0.9% 100 ML IVPB ONE (10:45)
--- NOTE | 2016-12-04 12:09 | CT ---
PROCEDURE: CT HEAD WITHOUT CONTRAST. HISTORY: Confusion, r/o brain mets, hx lung ca with mets COMPARISON: 10/23/2016 TECHNIQUE: Axial computed tomography images were obtained through the head/brain without intravenous contrast. Radiation dose: Total exam DLP = 878.66 mGy-cm. This CT exam was performed using one or more of the following dose reduction techniques: Automated exposure control, adjustment of the mA and/or kV according to patient size, and/or use of iterative reconstruction technique. FINDINGS: HEMORRHAGE: See below BRAIN: The there is focal vasogenic edema in the left frontal lobe with some central focal high attenuation which may represent punctate hemorrhage within a soft tissue mass. Evaluation with gadolinium enhanced magnetic resonance imaging is advised. This represents interval change from prior examination. There is no intracranial mass appreciated elsewhere. There is no intracranial hemorrhage appreciated elsewhere. There is mild diffuse atrophy. There is minimal chronic periventricular white matter ischemic change. VENTRICLES: Unremarkable. No hydrocephalus. CALVARIUM: Unremarkable. PARANASAL SINUSES: Unremarkable as visualized. No significant inflammatory changes. MASTOID AIR CELLS: Unremarkable as visualized. No inflammatory changes. OTHER FINDINGS: None. IMPRESSION: Suspect left frontal mass, possibly metastatic or primary. Recommend evaluation with gadolinium enhanced magnetic resonance imaging. Possible focal punctate hemorrhage within this suspected mass. This represents interval change from prior examination of 10/23/2016.
--- NOTE | 2016-12-04 15:45 | CP.PCM.PN ---
Subjective - Date & Time of Evaluation Date of Evaluation: 12/04/16 Time of Evaluation: 13:00 - Subjective Subjective: F/U Chest wall pain , Mandibular pain minimal mandibiular pain, no thoracic pain at times confused Objective - Vital Signs/Intake and Output Vital Signs (last 24 hours): Temp Pulse Resp BP Pulse Ox 97.3 F L 72 20 149/82 98 12/04/16 08:37 12/04/16 08:37 12/04/16 08:37 12/04/16 08:37 12/04/16 08:37 Intake and Output: 12/04/16 12/04/16 06:59 18:59 Intake Total 1740 Balance 1740 - Medications Medications: Current Medications Albuterol/Ipratropium (Duoneb 3 Mg/0.5 Mg (3 Ml) Ud) 3 ml INH RTID [facility] Last Admin: 12/04/16 12:45 Dose: 3 ml Alprazolam (Xanax) 0.5 mg PO TID PRN PRN Reason: Anxiety Last Admin: 11/28/16 20:41 Dose: 0.5 mg Alprazolam (Xanax) 1 mg PO TID [facility] Last Admin: 12/04/16 15:00 Dose: 1 mg Calcium Carbonate (Oscal) 500 mg PO BID [facility] Last Admin: 12/04/16 09:45 Dose: 500 mg Docusate Sodium (Colace) 200 mg PO DAILY [facility] Last Admin: 12/04/16 09:45 Dose: 200 mg Enoxaparin Sodium (Lovenox) 40 mg SC DAILY [facility] PRN Reason: Protocol Last Admin: 12/04/16 09:44 Dose: 40 mg Home Med (Oxycodone Hcl/Acetaminophen [Endocet 10-325 Mg Tablet]) 1 tab PO Q6H PRN PRN Reason: Pain, severe (8-10) Hydromorphone HCl (Dilaudid) 3 mg IVP Q4 [facility] Last Admin: 12/04/16 13:01 Dose: 3 mg Sodium Chloride (Sodium Chloride 0.9%) 500 mls @ 125 mls/hr IV .Q4H [facility] Last Admin: 12/04/16 09:46 Dose: 125 mls/hr Methadone HCl (Methadone) 10 mg PO Q4 [facility] Last Admin: 12/04/16 13:01 Dose: 10 mg Ondansetron HCl (Zofran Inj) 4 mg IVP Q4 PRN PRN Reason: Nausea/Vomiting Last Admin: 12/01/16 05:05 Dose: 4 mg - Labs Labs: 12/04/16 06:00 12/04/16 06:00 PT 14.0 Seconds (9.8-13.1) H 11/26/16 22:19 INR 1.2 (0.9-1.2) 11/26/16 22:19 APTT 33.7 Seconds (25.6-37.1) 11/26/16 22:19 - Constitutional Appears: No Acute Distress, Chronically Ill - Head Exam Head Exam: NORMAL INSPECTION - Eye Exam Eye Exam: PERRL - ENT Exam Additional comments: Minimal tenderness TMJ - Neck Exam Neck Exam: Normal Inspection - Respiratory Exam Respiratory Exam: Clear to Ausculation Bilateral - Cardiovascular Exam Cardiovascular Exam: REGULAR RHYTHM - GI/Abdominal Exam GI & Abdominal Exam: Soft, Normal Bowel Sounds - Extremities Exam Extremities Exam: Normal Inspection - Back Exam Back Exam: tenderness (L-S) - Neurological Exam Neurological Exam: Alert, Oriented x3. absent: Motor Sensory Deficit - Psychiatric Exam Psychiatric exam: Anxious, Depressed Additional comments: at times confused - Skin Skin Exam: Normal Color, Warm Assessment and Plan (1) Chest wall pain, chronic Status: Acute (2) Temporomandibular joint (TMJ) pain Status: Acute (3) Maxillary pain Status: Acute (4) Mandible pain Status: Acute (5) Malignant neoplasm metastatic to liver Status: Acute (6) Stage 4 lung cancer Assessment & Plan: Primary RUL NSCCa, metastasis Intrathoracic , Liver, Mandible , L frontal bone , L frontal Lobe Status: Acute (7) GORDY (acute kidney injury) Status: Acute (8) Brain metastasis Status: Acute (9) Anxiety Status: Chronic (10) Change in mental status Status: Acute - Assessment and Plan (Free Text) Plan: CT Head L frontal lobe metastasis accounting for change in mental status , continue pain medication , IVF , Renal consult appreciated, MRI Brain no contrast,f/u with [employer] new finding of L frontal lobe metastasis.
[2016-12-04] MEDS: Sodium Chloride 0.9% 1,000 ML IV SCH (16:30)
[2016-12-05] MEDS: Sodium Chloride 0.9% 1,000 ML IV SCH ×2 (00:30→09:51)
[2016-12-05 06:12] LABS: HEMATOCRIT 25.8 % (35.0-51.0); MEAN CELL VOLUME 82.6 fl (80.0-94.0); MEAN CORPUSCULAR HEMOGLOBIN 26.9 pg (27.0-31.0); MEAN CORPUSCULAR HGB CONC 32.5 g/dL (33.0-37.0); RED CELL DISTRIBUTION WIDTH 18.1 % (11.5-14.5); WHITE BLOOD COUNT 10.7 K/uL (4.8-10.8)
[2016-12-05 06:28] LABS: ALB/GLOB RATIO 1.2 (1.0-2.1); BILIRUBIN,TOTAL 0.1 mg/dl (0.2-1.3); CALCIUM 8.6 mg/dL (8.4-10.2); POTASSIUM 3.8 MMOL/L (3.6-5.0); TOTAL PROTEIN 5.9 G/DL (6.3-8.2)
[2016-12-05] MEDS: Albuterol-Ipratrop 3 mg / 0.5 (3 ml) UD INH SCH ×3 (07:24→19:25)
[2016-12-05] MEDS: Enoxaparin 40 mg Syringe SC SCH (08:53)
--- NOTE | 2016-12-05 10:18 | CP.PCM.PN ---
Subjective - Date & Time of Evaluation Date of Evaluation: 12/05/16 Time of Evaluation: 10:14 - Subjective Subjective: Pt had a ct scan which showed A small mass in the left frontal area of the brain. This was possibly the cause of his temperament. Spoke to him re Rt to the brain but he did not want to go yet. Will talk to the radiation oncologist re the same Objective - Vital Signs/Intake and Output Vital Signs (last 24 hours): Temp Pulse Resp BP Pulse Ox 97.4 F L 74 20 144/86 99 12/05/16 07:25 12/05/16 07:25 12/05/16 07:25 12/05/16 07:25 12/05/16 07:25 Intake and Output: 12/05/16 12/05/16 06:59 18:59 Intake Total 375 Balance 375 - Medications Medications: Current Medications Albuterol/Ipratropium (Duoneb 3 Mg/0.5 Mg (3 Ml) Ud) 3 ml INH RTID [facility] Last Admin: 12/05/16 07:24 Dose: Not Given Alprazolam (Xanax) 0.5 mg PO TID PRN PRN Reason: Anxiety Last Admin: 11/28/16 20:41 Dose: 0.5 mg Alprazolam (Xanax) 1 mg PO TID [facility] Last Admin: 12/05/16 09:01 Dose: 1 mg Calcium Carbonate (Oscal) 500 mg PO BID [facility] Last Admin: 12/05/16 08:53 Dose: 500 mg Docusate Sodium (Colace) 200 mg PO DAILY [facility] Last Admin: 12/05/16 08:51 Dose: 200 mg Enoxaparin Sodium (Lovenox) 40 mg SC DAILY [facility] PRN Reason: Protocol Last Admin: 12/05/16 08:53 Dose: 40 mg Home Med (Oxycodone Hcl/Acetaminophen [Endocet 10-325 Mg Tablet]) 1 tab PO Q6H PRN PRN Reason: Pain, severe (8-10) Hydromorphone HCl (Dilaudid) 3 mg IVP Q4 [facility] Last Admin: 12/05/16 08:52 Dose: 3 mg Sodium Chloride (Sodium Chloride 0.9%) 1,000 mls @ 125 mls/hr IV .Q8H [facility] Stop: 12/05/16 16:22 Last Admin: 12/05/16 09:51 Dose: 125 mls/hr Methadone HCl (Methadone) 10 mg PO Q4 [facility] Last Admin: 12/05/16 08:53 Dose: 10 mg Ondansetron HCl (Zofran Inj) 4 mg IVP Q4 PRN PRN Reason: Nausea/Vomiting Last Admin: 12/01/16 05:05 Dose: 4 mg - Labs Labs: 12/05/16 05:40 12/05/16 05:40 PT 14.0 Seconds (9.8-13.1) H 11/26/16 22:19 INR 1.2 (0.9-1.2) 11/26/16 22:19 APTT 33.7 Seconds (25.6-37.1) 11/26/16 22:19
--- NOTE | 2016-12-05 12:46 | MRI ---
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 COMPARISON: Noncontrast head CT from 12/04/2016 and 10/20/2016 TECHNIQUE: Multiplanar, multisequence MR images of the brain were obtained without intravenous contrast enhancement. FINDINGS: HEMORRHAGE: None DWI: No evidence of an acute or early subacute infarction. BRAIN PARENCHYMA: There is an approximately 3.7 x 1.1 cm dural-based left frontal mass demonstrating restricted diffusion. Also noted are multifocal areas of increased T1 signal with corresponding increased magnetic susceptibility on gradient images along the medial and lateral border septal mass. There is vasogenic edema in the underlying subcortical frontal white matter. There is also abnormal T1 hypointense and T2/stir hyperintense signal in the overlying frontal diploic space. There is also subcutaneous edema in the overlying frontal scalp.There are also multiple dural-based areas of restricted diffusion. VENTRICLES: The ventricles are normal in size, shape and configuration. CRANIUM: Focal abnormal bone marrow signal in the left frontal calvarium. ORBITS: Grossly unremarkable. PARANASAL SINUSES/MASTOIDS: There is large lobular T1 hypointense and T2/stir hyperintense soft tissue in the right sphenoid chamber. . There is a small left mastoid effusion. VASCULAR SYSTEM: Skull base flow voids intact. OTHER FINDINGS: None. IMPRESSION: 1. Evaluation is limited in the absence of intravenous contrast. Allowing for this, findings are most compatible with hemorrhagic dural-based left frontal metastasis with associated vasogenic edema in the frontal lobe and reactive changes versus metastatic invasion in the overlying frontal diploic space. . 2. Also suspected are several smaller dural-based metastatic deposits however these are difficult to evaluate in the absence of intravenous contrast. 3. Large polyp in the right sphenoid sinus.
--- NOTE | 2016-12-05 13:15 | CP.PCM.PN ---
Subjective - Date & Time of Evaluation Date of Evaluation: 12/05/16 Time of Evaluation: 10:40 - Subjective Subjective: F/U Chest wall pain. Pt c/o of R chest wall pain and TMJ pain Objective - Vital Signs/Intake and Output Vital Signs (last 24 hours): Temp Pulse Resp BP Pulse Ox 97.4 F L 74 20 144/86 99 12/05/16 07:25 12/05/16 07:25 12/05/16 07:25 12/05/16 07:25 12/05/16 07:25 Intake and Output: 12/05/16 12/05/16 06:59 18:59 Intake Total 375 Balance 375 - Medications Medications: Current Medications Albuterol/Ipratropium (Duoneb 3 Mg/0.5 Mg (3 Ml) Ud) 3 ml INH RTID [facility] Last Admin: 12/05/16 07:24 Dose: Not Given Alprazolam (Xanax) 0.5 mg PO TID PRN PRN Reason: Anxiety Last Admin: 11/28/16 20:41 Dose: 0.5 mg Alprazolam (Xanax) 1 mg PO TID [facility] Last Admin: 12/05/16 12:50 Dose: 1 mg Calcium Carbonate (Oscal) 500 mg PO BID [facility] Last Admin: 12/05/16 08:53 Dose: 500 mg Dexamethasone (Decadron) 6 mg PO Q12 [facility] Last Admin: 12/05/16 12:51 Dose: 6 mg Docusate Sodium (Colace) 200 mg PO DAILY [facility] Last Admin: 12/05/16 08:51 Dose: 200 mg Famotidine (Pepcid) 20 mg PO DAILY [facility] Home Med (Oxycodone Hcl/Acetaminophen [Endocet 10-325 Mg Tablet]) 1 tab PO Q6H PRN PRN Reason: Pain, severe (8-10) Hydromorphone HCl (Dilaudid) 3 mg IVP Q4 [facility] Last Admin: 12/05/16 12:49 Dose: 3 mg Sodium Chloride (Sodium Chloride 0.9%) 1,000 mls @ 125 mls/hr IV .Q8H [facility] Stop: 12/05/16 16:22 Last Admin: 12/05/16 09:51 Dose: 125 mls/hr Methadone HCl (Methadone) 10 mg PO Q4 [facility] Last Admin: 12/05/16 12:50 Dose: 10 mg Ondansetron HCl (Zofran Inj) 4 mg IVP Q4 PRN PRN Reason: Nausea/Vomiting Last Admin: 12/01/16 05:05 Dose: 4 mg - Labs Labs: 12/05/16 05:40 12/05/16 05:40 PT 14.0 Seconds (9.8-13.1) H 11/26/16 22:19 INR 1.2 (0.9-1.2) 11/26/16 22:19 APTT 33.7 Seconds (25.6-37.1) 11/26/16 22:19 - Constitutional Appears: No Acute Distress, Chronically Ill - Head Exam Head Exam: NORMAL INSPECTION - Eye Exam Eye Exam: PERRL - ENT Exam Additional comments: Minimal tenderness TMJ - Neck Exam Neck Exam: Normal Inspection - Respiratory Exam Respiratory Exam: Clear to Ausculation Bilateral - Cardiovascular Exam Cardiovascular Exam: REGULAR RHYTHM - GI/Abdominal Exam GI & Abdominal Exam: Soft, Normal Bowel Sounds - Extremities Exam Extremities Exam: Normal Inspection - Back Exam Back Exam: tenderness (L-S) - Neurological Exam Neurological Exam: Alert, Oriented x3. absent: Motor Sensory Deficit Additional comments: At times confused. - Psychiatric Exam Psychiatric exam: Anxious, Depressed - Skin Skin Exam: Normal Color, Warm Assessment and Plan (1) Chest wall pain, chronic Status: Acute (2) Temporomandibular joint (TMJ) pain Status: Acute (3) Maxillary pain Status: Acute (4) Mandible pain Status: Acute (5) Malignant neoplasm metastatic to liver Status: Acute (6) Stage 4 lung cancer Status: Acute (7) GORDY (acute kidney injury) Status: Acute (8) Brain metastasis Status: Acute (9) Anxiety Status: Chronic (10) Change in mental status Status: Acute - Assessment and Plan (Free Text) Plan: Continue Dilaudid, Methadone, RT for Brain Metastasis on Thursday.
--- NOTE | 2016-12-05 13:47 | US ---
PROCEDURE: Ultrasound of the Kidneys HISTORY: GORDY COMPARISON: 12/07/2008. TECHNIQUE: Sonogram of the kidneys. FINDINGS: RIGHT KIDNEY: Measures: 4.4 x 5.9 x 11 cm. Normal in size, contour and echogenicity. No stone, solid mass lesion or hydronephrosis visualized. LEFT KIDNEY: Measures: 4.8 x 5.4 x 11.6 cm. Normal in size, contour and echogenicity. No stone, solid mass lesion or hydronephrosis visualized. OTHER FINDINGS: Prominent renal pyramids consistent with medical renal disease. IMPRESSION: No significant or acute findings to account for/ related to the clinical presentation. No significant interval change compared to the prior examination(s).
[2016-12-05 15:20] LABS: CREATININE, RANDOM URINE 16.2 mg/dL
--- NOTE | 2016-12-05 15:32 | CP.PCM.PN ---
Subjective - Date & Time of Evaluation Date of Evaluation: 12/05/16 Time of Evaluation: 15:29 - Subjective Subjective: Patient and bed Appeared to be comfortable No vomiting He has some poor appetite Objective - Vital Signs/Intake and Output Vital Signs (last 24 hours): Temp Pulse Resp BP Pulse Ox 97.4 F L 74 20 144/86 99 12/05/16 07:25 12/05/16 07:25 12/05/16 07:25 12/05/16 07:25 12/05/16 07:25 Intake and Output: 12/05/16 12/05/16 06:59 18:59 Intake Total 375 Balance 375 - Medications Medications: Current Medications Albuterol/Ipratropium (Duoneb 3 Mg/0.5 Mg (3 Ml) Ud) 3 ml INH RTID [facility] Last Admin: 12/05/16 13:36 Dose: Not Given Alprazolam (Xanax) 0.5 mg PO TID PRN PRN Reason: Anxiety Last Admin: 11/28/16 20:41 Dose: 0.5 mg Alprazolam (Xanax) 1 mg PO TID [facility] Last Admin: 12/05/16 12:50 Dose: 1 mg Calcium Carbonate (Oscal) 500 mg PO BID [facility] Last Admin: 12/05/16 08:53 Dose: 500 mg Dexamethasone (Decadron) 6 mg PO Q12 [facility] Docusate Sodium (Colace) 200 mg PO DAILY [facility] Last Admin: 12/05/16 08:51 Dose: 200 mg Famotidine (Pepcid) 20 mg PO DAILY [facility] Home Med (Oxycodone Hcl/Acetaminophen [Endocet 10-325 Mg Tablet]) 1 tab PO Q6H PRN PRN Reason: Pain, severe (8-10) Hydromorphone HCl (Dilaudid) 3 mg IVP Q4 [facility] Last Admin: 12/05/16 12:49 Dose: 3 mg Sodium Chloride (Sodium Chloride 0.9%) 1,000 mls @ 125 mls/hr IV .Q8H [facility] Stop: 12/05/16 16:22 Last Admin: 12/05/16 09:51 Dose: 125 mls/hr Methadone HCl (Methadone) 10 mg PO Q4 [facility] Last Admin: 12/05/16 12:50 Dose: 10 mg Ondansetron HCl (Zofran Inj) 4 mg IVP Q4 PRN PRN Reason: Nausea/Vomiting Last Admin: 12/01/16 05:05 Dose: 4 mg - Labs Labs: 12/05/16 05:40 12/05/16 05:40 PT 14.0 Seconds (9.8-13.1) H 11/26/16 22:19 INR 1.2 (0.9-1.2) 11/26/16 22:19 APTT 33.7 Seconds (25.6-37.1) 11/26/16 22:19 - Constitutional Appears: No Acute Distress - ENT Exam ENT Exam: Mucous Membranes Moist - Respiratory Exam Respiratory Exam: NORMAL BREATHING PATTERN. absent: Chest Wall Tenderness - Cardiovascular Exam Cardiovascular Exam: absent: JVD, Rubs - GI/Abdominal Exam GI & Abdominal Exam: Soft, Normal Bowel Sounds - Extremities Exam Extremities Exam: absent: Calf Tenderness - Back Exam Back Exam: absent: CVA tenderness (L), CVA tenderness (R) - Neurological Exam Neurological Exam: Abnormal Gait - Psychiatric Exam Psychiatric exam: Anxious Assessment and Plan (1) Stage 4 lung cancer Status: Acute (2) GORDY (acute kidney injury) Assessment & Plan: Acute kidney injury related to multifactorial patient received chemotherapy Serum creatinine going up 3.0 And oncology note noted as 2 CT scan of the brain with acute myocardial in addition to lung mass and liver metastatic disease Serum sodium going down slowly Cut down IV fluid normal saline to 60 mL/h And continue monitoring Status: Acute
[2016-12-06] MEDS: Albuterol-Ipratrop 3 mg / 0.5 (3 ml) UD INH SCH ×3 (07:22→19:03)
[2016-12-06 09:42] LABS: MEAN CELL VOLUME 81.2 fl (80.0-94.0); MEAN CORPUSCULAR HEMOGLOBIN 26.5 pg (27.0-31.0); MEAN CORPUSCULAR HGB CONC 32.7 g/dL (33.0-37.0); WHITE BLOOD COUNT 11.2 K/uL (4.8-10.8)
[2016-12-06 09:56] LABS: POTASSIUM 4.1 MMOL/L (3.6-5.0)
--- NOTE | 2016-12-06 14:19 | CP.PCM.PN ---
Subjective - Date & Time of Evaluation Date of Evaluation: 12/06/16 Time of Evaluation: 12:00 - Subjective Subjective: F/U Chest wall and TMJ pain. No R chest wall pain, TMJ pain Objective - Vital Signs/Intake and Output Vital Signs (last 24 hours): Temp Pulse Resp BP Pulse Ox 97.5 F L 69 20 119/80 98 12/06/16 08:40 12/06/16 08:40 12/06/16 08:40 12/06/16 08:40 12/06/16 08:40 Intake and Output: 12/06/16 12/06/16 06:59 18:59 Intake Total 375 Balance 375 - Medications Medications: Current Medications Albuterol/Ipratropium (Duoneb 3 Mg/0.5 Mg (3 Ml) Ud) 3 ml INH RTID [facility] Last Admin: 12/06/16 13:12 Dose: Not Given Alprazolam (Xanax) 0.5 mg PO TID PRN PRN Reason: Anxiety Last Admin: 12/06/16 06:31 Dose: 0.5 mg Alprazolam (Xanax) 1 mg PO TID [facility] Last Admin: 12/06/16 12:38 Dose: 1 mg Calcium Carbonate (Oscal) 500 mg PO BID [facility] Last Admin: 12/06/16 08:40 Dose: 500 mg Dexamethasone (Decadron) 6 mg PO Q12 [facility] Last Admin: 12/06/16 08:37 Dose: 6 mg Docusate Sodium (Colace) 200 mg PO DAILY [facility] Last Admin: 12/06/16 08:37 Dose: 200 mg Famotidine (Pepcid) 20 mg PO DAILY [facility] Last Admin: 12/06/16 08:41 Dose: 20 mg Home Med (Oxycodone Hcl/Acetaminophen [Endocet 10-325 Mg Tablet]) 1 tab PO Q6H PRN PRN Reason: Pain, severe (8-10) Hydromorphone HCl (Dilaudid) 4 mg IVP Q4 [facility] Methadone HCl (Methadone) 10 mg PO Q4 [facility] Last Admin: 12/06/16 12:37 Dose: 10 mg Ondansetron HCl (Zofran Inj) 4 mg IVP Q4 PRN PRN Reason: Nausea/Vomiting Last Admin: 12/01/16 05:05 Dose: 4 mg - Labs Labs: 12/06/16 09:30 12/06/16 09:30 PT 14.0 Seconds (9.8-13.1) H 11/26/16 22:19 INR 1.2 (0.9-1.2) 11/26/16 22:19 APTT 33.7 Seconds (25.6-37.1) 11/26/16 22:19 - Constitutional Appears: No Acute Distress, Chronically Ill - Eye Exam Eye Exam: PERRL - ENT Exam Additional comments: Minimal tenderness TMJ - Neck Exam Neck Exam: Normal Inspection - Respiratory Exam Respiratory Exam: Clear to Ausculation Bilateral - Cardiovascular Exam Cardiovascular Exam: REGULAR RHYTHM - GI/Abdominal Exam GI & Abdominal Exam: Soft, Normal Bowel Sounds - Extremities Exam Extremities Exam: Normal Inspection - Back Exam Back Exam: tenderness (L-S) - Neurological Exam Neurological Exam: Alert, Oriented x3. absent: Motor Sensory Deficit Additional comments: t times confused - Psychiatric Exam Psychiatric exam: Anxious, Depressed - Skin Skin Exam: Normal Color, Warm Assessment and Plan (1) Chest wall pain, chronic Status: Acute (2) Temporomandibular joint (TMJ) pain Status: Acute (3) Maxillary pain Status: Acute (4) Mandible pain Status: Acute (5) Malignant neoplasm metastatic to liver Status: Acute (6) Stage 4 lung cancer Status: Acute (7) GORDY (acute kidney injury) Status: Acute (8) Brain metastasis Status: Acute (9) Anxiety Status: Chronic (10) Change in mental status Status: Acute - Assessment and Plan (Free Text) Plan: Continue Dilaudid, Methadone, RT for Brain Metastasis on Thursday.
--- NOTE | 2016-12-06 16:22 | CP.PCM.PN ---
Subjective - Date & Time of Evaluation Date of Evaluation: 12/06/16 Time of Evaluation: 16:20 - Subjective Subjective: RENAL PROGRESS NOTE pt seen and examined no complaints denies n/v VS reviewed gen: nad sclera: anicteric op: clear neck: supple cv: +S1+s2 Lungs: CTA abd: soft ext: no edema neuro: a+ox3 psych: normal affect skin: no rash imp: ARF / Met Lung Ca/ Anemia / plan: Cr slowly trending up. not clear as to etiology. None of meds seem nephrotoxic - not sure when last dose of robinson based chemo was will d/w w/ Dr. Durán will check ua and urine lytes today Objective - Vital Signs/Intake and Output Vital Signs (last 24 hours): Temp Pulse Resp BP Pulse Ox 97.5 F L 69 20 119/80 98 12/06/16 08:40 12/06/16 08:40 12/06/16 08:40 12/06/16 08:40 12/06/16 08:40 Intake and Output: 12/06/16 12/06/16 06:59 18:59 Intake Total 375 Balance 375 - Medications Medications: Current Medications Albuterol/Ipratropium (Duoneb 3 Mg/0.5 Mg (3 Ml) Ud) 3 ml INH RTID [facility]S [facility] Last Admin: 12/06/16 13:12 Dose: Not Given Alprazolam (Xanax) 0.5 mg PO TID PRN PRN Reason: Anxiety Last Admin: 12/06/16 06:31 Dose: 0.5 mg Alprazolam (Xanax) 1 mg PO TID [facility]S [facility] Last Admin: 12/06/16 12:38 Dose: 1 mg Calcium Carbonate (Oscal) 500 mg PO BID [facility] Last Admin: 12/06/16 08:40 Dose: 500 mg Dexamethasone (Decadron) 6 mg PO Q12 [facility]S [facility] Last Admin: 12/06/16 08:37 Dose: 6 mg Docusate Sodium (Colace) 200 mg PO DAILY [facility] B[facility]S [facility] Last Admin: 12/06/16 08:37 Dose: 200 mg Famotidine (Pepcid) 20 mg PO DAILY [facility]S [facility] Last Admin: 12/06/16 08:41 Dose: 20 mg Home Med (Oxycodone Hcl/Acetaminophen [Endocet 10-325 Mg Tablet]) 1 tab PO Q6H PRN PRN Reason: Pain, severe (8-10) Hydromorphone HCl (Dilaudid) 4 mg IVP Q4 [facility] Methadone HCl (Methadone) 10 mg PO Q4 [facility] Last Admin: 12/06/16 12:37 Dose: 10 mg Ondansetron HCl (Zofran Inj) 4 mg IVP Q4 PRN PRN Reason: Nausea/Vomiting Last Admin: 12/01/16 05:05 Dose: 4 mg - Labs Labs: 12/06/16 09:30 12/06/16 09:30 PT 14.0 Seconds (9.8-13.1) H 11/26/16 22:19 INR 1.2 (0.9-1.2) 11/26/16 22:19 APTT 33.7 Seconds (25.6-37.1) 11/26/16 22:19
[2016-12-06] MEDS: Sodium Chloride 0.9% 1,000 ML IV SCH (16:35)
[2016-12-07] MEDS: Sodium Chloride 0.9% 1,000 ML IV SCH (05:48)
[2016-12-07] MEDS: Albuterol-Ipratrop 3 mg / 0.5 (3 ml) UD INH SCH ×3 (07:15→22:03)
--- NOTE | 2016-12-07 14:25 | CP.PCM.PN ---
Subjective - Date & Time of Evaluation Date of Evaluation: 12/07/16 Time of Evaluation: 11:00 - Subjective Subjective: F/U Chest Wall and TMJ pain. No R chest wall pain, less TMJ pain. Objective - Vital Signs/Intake and Output Vital Signs (last 24 hours): Temp Pulse Resp BP Pulse Ox 97.3 F L 60 18 146/90 100 12/07/16 08:27 12/07/16 08:27 12/07/16 08:27 12/07/16 08:27 12/07/16 08:27 Intake and Output: 12/07/16 12/07/16 06:59 18:59 Intake Total 885 Balance 885 - Medications Medications: Current Medications Albuterol/Ipratropium (Duoneb 3 Mg/0.5 Mg (3 Ml) Ud) 3 ml INH RTID [facility] Last Admin: 12/07/16 13:32 Dose: Not Given Alprazolam (Xanax) 0.5 mg PO TID PRN PRN Reason: Anxiety Last Admin: 12/07/16 01:29 Dose: 0.5 mg Alprazolam (Xanax) 1 mg PO TID [facility] Last Admin: 12/07/16 13:53 Dose: 1 mg Calcium Carbonate (Oscal) 500 mg PO BID [facility] Last Admin: 12/07/16 09:21 Dose: 500 mg Dexamethasone (Decadron) 6 mg PO Q12 [facility] Last Admin: 12/07/16 09:21 Dose: 6 mg Docusate Sodium (Colace) 200 mg PO DAILY [facility] Last Admin: 12/07/16 09:20 Dose: 200 mg Famotidine (Pepcid) 20 mg PO DAILY [facility] Last Admin: 12/07/16 09:22 Dose: 20 mg Home Med (Oxycodone Hcl/Acetaminophen [Endocet 10-325 Mg Tablet]) 1 tab PO Q6H PRN PRN Reason: Pain, severe (8-10) Hydromorphone HCl (Dilaudid) 4 mg IVP Q4 [facility] Last Admin: 12/07/16 13:51 Dose: 4 mg Sodium Chloride (Sodium Chloride 0.9%) 1,000 mls @ 75 mls/hr IV .[id number] [facility] Stop: 12/07/16 16:25 Last Admin: 12/07/16 05:48 Dose: 75 mls/hr Methadone HCl (Methadone) 10 mg PO Q4 [facility] Last Admin: 12/07/16 13:53 Dose: 10 mg Ondansetron HCl (Zofran Inj) 4 mg IVP Q4 PRN PRN Reason: Nausea/Vomiting Last Admin: 12/07/16 09:29 Dose: 4 mg - Labs Labs: 12/06/16 09:30 12/06/16 09:30 PT 14.0 Seconds (9.8-13.1) H 11/26/16 22:19 INR 1.2 (0.9-1.2) 11/26/16 22:19 APTT 33.7 Seconds (25.6-37.1) 11/26/16 22:19 - Constitutional Appears: No Acute Distress, Chronically Ill - Head Exam Head Exam: NORMAL INSPECTION - Eye Exam Eye Exam: PERRL - ENT Exam ENT Exam: Normal Exam Additional comments: Minimal tenderness TMJ - Neck Exam Neck Exam: Normal Inspection - Respiratory Exam Respiratory Exam: Clear to Ausculation Bilateral - Cardiovascular Exam Cardiovascular Exam: REGULAR RHYTHM - GI/Abdominal Exam GI & Abdominal Exam: Soft, Normal Bowel Sounds - Extremities Exam Extremities Exam: Normal Inspection - Back Exam Back Exam: tenderness (L-S) - Neurological Exam Neurological Exam: Alert, Oriented x3. absent: Motor Sensory Deficit Additional comments: At times confused - Psychiatric Exam Psychiatric exam: Anxious, Depressed - Skin Skin Exam: Normal Color, Warm Assessment and Plan (1) Chest wall pain, chronic Status: Acute (2) Temporomandibular joint (TMJ) pain Status: Acute (3) Maxillary pain Status: Acute (4) Mandible pain Status: Acute (5) Malignant neoplasm metastatic to liver Status: Acute (6) Stage 4 lung cancer Status: Acute (7) GORDY (acute kidney injury) Status: Acute (8) Brain metastasis Status: Acute (9) Anxiety Status: Chronic (10) Change in mental status Status: Acute - Assessment and Plan (Free Text) Plan: Continue Dilaudid, Methadone and rest of Tx. RT for Brain Metastasis on Thursday.
[2016-12-07 16:02] LABS: CREATININE, RANDOM URINE 20.2 mg/dL
[2016-12-07 16:17] LABS: RBC URINE < 1 /hpf (0-3); URINE BACTERIA FEW (<OCC); URINE BILIRUBIN NEGATIVE (NEGATIVE); URINE BLOOD NEGATIVE (NEGATIVE); URINE COLOR COLORLESS (YELLOW); URINE GLUCOSE (UA) 50 mg/dL (Normal); URINE KETONE NEGATIVE (NEGATIVE); URINE LEUKOCYTE ESTERASE NEG Leu/uL (Negative); URINE PROTEIN NEGATIVE (NEGATIVE); URINE UROBILINOGEN 0.2-1.0 mg/dL (0.2-1.0); WBC URINE 1 /hpf (0-5)
[2016-12-08] MEDS: Albuterol-Ipratrop 3 mg / 0.5 (3 ml) UD INH SCH ×3 (07:33→19:22)
--- NOTE | 2016-12-08 07:48 | CP.PCM.PN ---
Subjective - Date & Time of Evaluation Date of Evaluation: 12/08/16 Time of Evaluation: 07:46 - Subjective Subjective: Chronic pain no changes Patient receiving pain medication No vomiting reported Patient reported may be going for radiation therapy for the brain Objective - Vital Signs/Intake and Output Vital Signs (last 24 hours): Temp Pulse Resp BP Pulse Ox 97.8 F 75 19 113/75 99 12/08/16 00:00 12/08/16 00:00 12/08/16 00:00 12/08/16 00:00 12/08/16 00:00 - Medications Medications: Current Medications Albuterol/Ipratropium (Duoneb 3 Mg/0.5 Mg (3 Ml) Ud) 3 ml INH RTID [facility] Last Admin: 12/08/16 07:33 Dose: 3 ml Alprazolam (Xanax) 0.5 mg PO TID PRN PRN Reason: Anxiety Last Admin: 12/07/16 21:39 Dose: 0.5 mg Alprazolam (Xanax) 1 mg PO TID [facility] Last Admin: 12/07/16 17:32 Dose: 1 mg Calcium Carbonate (Oscal) 500 mg PO BID [facility] Last Admin: 12/07/16 17:32 Dose: 500 mg Dexamethasone (Decadron) 6 mg PO Q12 [facility] Last Admin: 12/07/16 21:26 Dose: 6 mg Docusate Sodium (Colace) 200 mg PO DAILY [facility] Last Admin: 12/07/16 09:20 Dose: 200 mg Famotidine (Pepcid) 20 mg PO DAILY [facility] Last Admin: 12/07/16 09:22 Dose: 20 mg Home Med (Oxycodone Hcl/Acetaminophen [Endocet 10-325 Mg Tablet]) 1 tab PO Q6H PRN PRN Reason: Pain, severe (8-10) Hydromorphone HCl (Dilaudid) 4 mg IVP Q4 [facility] Last Admin: 12/08/16 05:18 Dose: 4 mg Methadone HCl (Methadone) 10 mg PO Q4 [facility] Last Admin: 12/08/16 05:18 Dose: 10 mg Ondansetron HCl (Zofran Inj) 4 mg IVP Q4 PRN PRN Reason: Nausea/Vomiting Last Admin: 12/07/16 09:29 Dose: 4 mg - Labs Labs: 12/06/16 09:30 12/06/16 09:30 PT 14.0 Seconds (9.8-13.1) H 11/26/16 22:19 INR 1.2 (0.9-1.2) 11/26/16 22:19 APTT 33.7 Seconds (25.6-37.1) 11/26/16 22:19 - Constitutional Appears: No Acute Distress - Respiratory Exam Respiratory Exam: NORMAL BREATHING PATTERN. absent: Chest Wall Tenderness - Cardiovascular Exam Cardiovascular Exam: absent: JVD, Rubs - GI/Abdominal Exam GI & Abdominal Exam: Normal Bowel Sounds - Extremities Exam Extremities Exam: absent: Calf Tenderness - Back Exam Back Exam: absent: CVA tenderness (L), CVA tenderness (R) - Neurological Exam Neurological Exam: Alert - Psychiatric Exam Psychiatric exam: Agitated Assessment and Plan (1) Stage 4 lung cancer Status: Acute (2) GORDY (acute kidney injury) Assessment & Plan: Acute kidney injury of multifactorial. To repeat serum creatinine and electrolytes stat this morning Patient reported being going for radiation therapy today for the brain for the metastatic disease Status: Acute
--- NOTE | 2016-12-08 13:27 | CP.PCM.CON ---
History of Present Illness - History of Present Illness History of Present Illness: Mr Rubio is a 56 year old male with stage IV small cell lung cancer who is known to our department. He completed palliative radiation therapy to the lung on November 07, 2016. He was admitted to [place] with complaints of worsening right sided chest pain as well as a cough with blood tinged sputum on November 27, 2016. A CT of the chest on November 27, 2016 revealed that the prior mass in the right upper lobe and suprahilar region was smaller, however there were new masses in the right upper lung as well as anterior mediastinum which suggested progression. He restarted chemotherapy on December 01, 2016 with cisplatin and etoposide. Due to confusion and aggressiveness, a CT of the head on December 04, 2016 was performed which revealed a focal vasogenic edema in the left frontal lobe with a soft tissue mass. He had a MRI of the brain without contrast on December 05, 2016 which revealed a 3.7 x 1.1cm dural based frontal mass with edema. The radiologist also suspected several smaller dural based lesions as well, however it was difficult to see due to the lack of contrast. He is currently on decadron. He is referred to us for whole brain radiation therapy. Review of Systems - Respiratory Respiratory: Cough, Dyspnea - Neurological Neurological: Confusion Past Patient History - Infectious Disease Hx of Infectious Diseases: None - Past Medical History & Family History Past Medical History?: Yes - Past Social History Smoking Status: Former Smoker Alcohol: None Drugs: Other (previous use in the past) Home Situation {Lives}: Alone - CARDIAC Hx Cardiac Disorders: Yes Hx Hypercholesterolemia: Yes Hx Hypertension: Yes - PULMONARY Hx Respiratory Disorders: Yes Hx Bronchitis: Yes - NEUROLOGICAL Hx Neurological Disorder: No - HEENT Hx HEENT Problems: No - RENAL Hx Chronic Kidney Disease: No - ENDOCRINE/METABOLIC Hx Endocrine Disorders: No - HEMATOLOGICAL/ONCOLOGICAL Hx Blood Disorders: Yes Hx AIDS: No Hx Anemia: Yes Hx Cancer: Yes Hx Chemotherapy: Yes Hx Hepatitis C: Yes Hx Human Immunodeficiency Virus (HIV): No Hx Metastesis: Yes - INTEGUMENTARY Hx Dermatological Problems: No - MUSCULOSKELETAL/RHEUMATOLOGICAL Hx Musculoskeletal Disorders: Yes (Chest wall pain) Hx Falls: No Hx Fractures: Yes - GASTROINTESTINAL Hx Gastrointestinal Disorders: Yes Hx Hemorrhoids: Yes - GENITOURINARY/GYNECOLOGICAL Hx Genitourinary Disorders: No - PSYCHIATRIC Hx Psychophysiologic Disorder: Yes Hx Anxiety: Yes Hx Substance Use: No - SURGICAL HISTORY Hx Coronary Stent: Yes - ANESTHESIA Hx Anesthesia: Yes Hx Anesthesia Reactions: No Hx Malignant Hyperthermia: No Has any member of the family had a problem w/ anesthesia?: No Meds Allergies/Adverse Reactions: Allergies Allergy/AdvReac Type Severity Reaction Status Date / Time No Known Allergies Allergy Verified 11/26/16 21:10 - Medications Medications: Current Medications Albuterol/Ipratropium (Duoneb 3 Mg/0.5 Mg (3 Ml) Ud) 3 ml INH [facility]ID [facility] Last Admin: 12/08/16 07:33 Dose: 3 ml Alprazolam (Xanax) 0.5 mg PO TID PRN PRN Reason: Anxiety Last Admin: 12/07/16 21:39 Dose: 0.5 mg Alprazolam (Xanax) 1 mg PO TID [facility] Last Admin: 12/08/16 12:27 Dose: 1 mg Calcium Carbonate (Oscal) 500 mg PO BID [facility] Last Admin: 12/08/16 12:27 Dose: 500 mg Dexamethasone (Decadron) 6 mg PO Q12 [facility] Last Admin: 12/08/16 12:28 Dose: 6 mg Docusate Sodium (Colace) 200 mg PO DAILY [facility] Last Admin: 12/08/16 12:28 Dose: 200 mg Famotidine (Pepcid) 20 mg PO DAILY [facility] Last Admin: 12/08/16 12:29 Dose: 20 mg Home Med (Oxycodone Hcl/Acetaminophen [Endocet 10-325 Mg Tablet]) 1 tab PO Q6H PRN PRN Reason: Pain, severe (8-10) Hydromorphone HCl (Dilaudid) 4 mg IVP Q4 [facility] Last Admin: 12/08/16 12:24 Dose: 4 mg Methadone HCl (Methadone) 10 mg PO Q4 [facility] Last Admin: 12/08/16 12:25 Dose: 10 mg Ondansetron HCl (Zofran Inj) 4 mg IVP Q4 PRN PRN Reason: Nausea/Vomiting Last Admin: 12/08/16 07:57 Dose: 4 mg Sennosides (Senokot Tab) 17.2 mg PO HS [facility] Physical Exam - Head Exam Head Exam: NORMAL INSPECTION - Eye Exam Eye Exam: EOMI - ENT Exam ENT Exam: Mucous Membranes Moist - Respiratory Exam Respiratory Exam: Clear to Auscultation Bilateral - Cardiovascular Exam Cardiovascular Exam: REGULAR RHYTHM - GI/Abdominal Exam GI & Abdominal Exam: Normal Bowel Sounds - Neurological Exam Neurological exam: CN II-XII Intact, Oriented x3 Results - Vital Signs Recent Vital Signs: Last Vital Signs Temp 97.6 F 12/08/16 08:17 Pulse 76 12/08/16 08:17 Resp 20 12/08/16 08:17 BP 143/92 H 12/08/16 08:17 Pulse Ox 98 12/08/16 08:17 - Labs Result Diagrams: 12/06/16 09:30 12/06/16 09:30 Labs: Laboratory Results - last 24 hr 12/07/16 12/07/16 12/07/16 15:00 15:00 15:00 Urine Color Colorless Urine Clarity Clear Urine pH 7.0 Ur Specific [place] 1.008 Urine Protein Negative Urine Glucose (UA) 50 Urine Ketones Negative Urine Blood Negative Urine Nitrate Negative Urine Bilirubin Negative Urine Urobilinogen 0.2-1.0 Ur Leukocyte Esterase Neg Urine RBC (Auto) < 1 Urine Microscopic WBC 1 Ur Squamous Epith Cells < 1 Urine Bacteria Few H Urine Osmolality 349 Ur Random Creatinine 20.2 Ur Random Sodium 139 139 Ur Random Potassium 18.2 Assessment & Plan - Assessment and Plan (Free Text) Assessment: Mr Rubio is a 56 year old male with stage IV small cell lung cancer with brain metastases. We would concur that he would benefit from whole brain radiation therapy. We spoke to him about the specifics of radiation including the risks and benefits. Informed consent was obtained. We will simulate him today so that we can begin as soon as possible. The etiology of his sinus pressure and jaw discomfort is unclear. We relayed this to his nurse who will have this evaluated.
--- NOTE | 2016-12-08 16:07 | CP.PCM.PN ---
Subjective - Date & Time of Evaluation Date of Evaluation: 12/08/16 Time of Evaluation: 16:05 - Subjective Subjective: Pt seems to be very calm today, pleading with me to save his life. he agreed to the RT to the head,He will be seen at [facility] radiation therapy today Objective - Vital Signs/Intake and Output Vital Signs (last 24 hours): Temp Pulse Resp BP Pulse Ox 97.6 F 76 20 143/92 H 98 12/08/16 08:17 12/08/16 08:17 12/08/16 08:17 12/08/16 08:17 12/08/16 08:17 - Medications Medications: Current Medications Albuterol/Ipratropium (Duoneb 3 Mg/0.5 Mg (3 Ml) Ud) 3 ml INH RTID [facility] Last Admin: 12/08/16 13:32 Dose: 3 ml Alprazolam (Xanax) 0.5 mg PO TID PRN PRN Reason: Anxiety Last Admin: 12/07/16 21:39 Dose: 0.5 mg Alprazolam (Xanax) 1 mg PO TID [facility] Last Admin: 12/08/16 12:27 Dose: 1 mg Calcium Carbonate (Oscal) 500 mg PO BID [facility] Last Admin: 12/08/16 12:27 Dose: 500 mg Dexamethasone (Decadron) 6 mg PO Q12 [facility] Last Admin: 12/08/16 12:28 Dose: 6 mg Docusate Sodium (Colace) 200 mg PO DAILY [facility] Last Admin: 12/08/16 12:28 Dose: 200 mg Famotidine (Pepcid) 20 mg PO DAILY [facility] Last Admin: 12/08/16 12:29 Dose: 20 mg Home Med (Oxycodone Hcl/Acetaminophen [Endocet 10-325 Mg Tablet]) 1 tab PO Q6H PRN PRN Reason: Pain, severe (8-10) Hydromorphone HCl (Dilaudid) 4 mg IVP Q4 [facility] Last Admin: 12/08/16 12:24 Dose: 4 mg Methadone HCl (Methadone) 10 mg PO Q4 [facility] Last Admin: 12/08/16 12:25 Dose: 10 mg Ondansetron HCl (Zofran Inj) 4 mg IVP Q4 PRN PRN Reason: Nausea/Vomiting Last Admin: 12/08/16 07:57 Dose: 4 mg Sennosides (Senokot Tab) 17.2 mg PO HS [facility] - Labs Labs: 12/06/16 09:30 12/06/16 09:30 PT 14.0 Seconds (9.8-13.1) H 11/26/16 22:19 INR 1.2 (0.9-1.2) 11/26/16 22:19 APTT 33.7 Seconds (25.6-37.1) 11/26/16 22:19
[2016-12-09 06:57] LABS: HEMATOCRIT 24.8 % (35.0-51.0); MEAN CELL VOLUME 80.2 fl (80.0-94.0); MEAN CORPUSCULAR HEMOGLOBIN 26.6 pg (27.0-31.0); MEAN CORPUSCULAR HGB CONC 33.1 g/dL (33.0-37.0); RED CELL DISTRIBUTION WIDTH 18.5 % (11.5-14.5)
[2016-12-09 07:11] LABS: CALCIUM 6.3 mg/dL (8.4-10.2); POTASSIUM 4.6 MMOL/L (3.6-5.0)
[2016-12-09 07:59] LABS: WHITE BLOOD COUNT 1.4 K/uL (4.8-10.8)
[2016-12-09] MEDS: Albuterol-Ipratrop 3 mg / 0.5 (3 ml) UD INH SCH ×3 (08:05→19:28)
--- NOTE | 2016-12-09 11:22 | CP.PCM.PN ---
Subjective - Date & Time of Evaluation Date of Evaluation: 12/09/16 Time of Evaluation: 11:20 - Subjective Subjective: No significant changes reported Vital sign noted Oncology note noted Objective - Vital Signs/Intake and Output Vital Signs (last 24 hours): Temp Pulse Resp BP Pulse Ox 98.3 F 65 20 112/73 98 12/09/16 07:41 12/09/16 07:41 12/09/16 07:41 12/09/16 07:41 12/09/16 07:41 - Medications Medications: Current Medications Albuterol/Ipratropium (Duoneb 3 Mg/0.5 Mg (3 Ml) Ud) 3 ml INH RTID [facility] Last Admin: 12/09/16 08:05 Dose: Not Given Alprazolam (Xanax) 0.5 mg PO TID PRN PRN Reason: Anxiety Last Admin: 12/09/16 00:15 Dose: 0.5 mg Alprazolam (Xanax) 1 mg PO TID [facility] Last Admin: 12/09/16 09:38 Dose: 1 mg Calcium Carbonate (Oscal) 500 mg PO BID [facility] Last Admin: 12/09/16 09:52 Dose: 500 mg Dexamethasone (Decadron) 6 mg PO Q12 [facility] Last Admin: 12/09/16 09:47 Dose: 6 mg Docusate Sodium (Colace) 200 mg PO DAILY [facility] Last Admin: 12/09/16 09:48 Dose: 200 mg Famotidine (Pepcid) 20 mg PO DAILY [facility] Last Admin: 12/09/16 09:52 Dose: 20 mg Home Med (Oxycodone Hcl/Acetaminophen [Endocet 10-325 Mg Tablet]) 1 tab PO Q6H PRN PRN Reason: Pain, severe (8-10) Hydromorphone HCl (Dilaudid) 4 mg IVP Q4 [facility] Last Admin: 12/09/16 09:49 Dose: 4 mg Methadone HCl (Methadone) 10 mg PO Q4 [facility] Last Admin: 12/09/16 09:38 Dose: 10 mg Ondansetron HCl (Zofran Inj) 4 mg IVP Q4 PRN PRN Reason: Nausea/Vomiting Last Admin: 12/09/16 10:11 Dose: 4 mg Sennosides (Senokot Tab) 17.2 mg PO HS [facility] Last Admin: 12/08/16 22:54 Dose: 17.2 mg - Labs Labs: 12/09/16 06:30 12/09/16 06:30 PT 14.0 Seconds (9.8-13.1) H 11/26/16 22:19 INR 1.2 (0.9-1.2) 11/26/16 22:19 APTT 33.7 Seconds (25.6-37.1) 11/26/16 22:19 Assessment and Plan (1) Stage 4 lung cancer Status: Acute (2) GORDY (acute kidney injury) Assessment & Plan: Acute kidney injury serum creatinine started trending down Continue to monitor kidney function. Serum sodium also trending down we will keep our eye on it and monitor it Status: Acute
[2016-12-10 07:37] LABS: CALCIUM 6.5 mg/dL (8.4-10.2)
[2016-12-10 07:39] LABS: MEAN CELL VOLUME 78.2 fl (80.0-94.0); MEAN CORPUSCULAR HEMOGLOBIN 26.9 pg (27.0-31.0); MEAN CORPUSCULAR HGB CONC 34.4 g/dL (33.0-37.0); RED CELL DISTRIBUTION WIDTH 18.9 % (11.5-14.5)
[2016-12-10 08:03] LABS: WHITE BLOOD COUNT 0.4 K/uL (4.8-10.8)
[2016-12-10] MEDS: Albuterol-Ipratrop 3 mg / 0.5 (3 ml) UD INH SCH ×3 (08:04→19:22)
--- NOTE | 2016-12-10 08:18 | CP.PCM.PN ---
Subjective - Date & Time of Evaluation Date of Evaluation: 12/10/16 Time of Evaluation: 08:15 - Subjective Subjective: Patient and bed With a poor appetite not eating well Complaining of pain all over Objective - Vital Signs/Intake and Output Vital Signs (last 24 hours): Temp Pulse Resp BP Pulse Ox 97.4 F L 72 20 121/75 99 12/10/16 07:51 12/10/16 07:51 12/10/16 07:51 12/10/16 07:51 12/10/16 07:51 - Medications Medications: Current Medications Albuterol/Ipratropium (Duoneb 3 Mg/0.5 Mg (3 Ml) Ud) 3 ml INH RTID [facility] Last Admin: 12/10/16 08:04 Dose: Not Given Alprazolam (Xanax) 0.5 mg PO TID PRN PRN Reason: Anxiety Last Admin: 12/10/16 04:50 Dose: 0.5 mg Alprazolam (Xanax) 1 mg PO TID [facility] Last Admin: 12/09/16 17:09 Dose: 1 mg Calcium Carbonate (Oscal) 500 mg PO BID [facility] Last Admin: 12/09/16 17:12 Dose: 500 mg Dexamethasone (Decadron) 6 mg PO Q12 [facility] Last Admin: 12/09/16 21:14 Dose: 6 mg Docusate Sodium (Colace) 200 mg PO DAILY [facility] Last Admin: 12/09/16 09:48 Dose: 200 mg Famotidine (Pepcid) 20 mg PO DAILY [facility] Last Admin: 12/09/16 09:52 Dose: 20 mg Home Med (Oxycodone Hcl/Acetaminophen [Endocet 10-325 Mg Tablet]) 1 tab PO Q6H PRN PRN Reason: Pain, severe (8-10) Hydromorphone HCl (Dilaudid) 4 mg IVP Q4 [facility] Last Admin: 12/10/16 04:51 Dose: 4 mg Methadone HCl (Methadone) 10 mg PO Q4 [facility] Last Admin: 12/10/16 04:51 Dose: 10 mg Ondansetron HCl (Zofran Inj) 4 mg IVP Q4 PRN PRN Reason: Nausea/Vomiting Last Admin: 12/09/16 20:01 Dose: 4 mg Sennosides (Senokot Tab) 17.2 mg PO HS [facility] Last Admin: 12/09/16 21:14 Dose: 17.2 mg - Labs Labs: 12/10/16 06:00 12/10/16 06:00 PT 14.0 Seconds (9.8-13.1) H 11/26/16 22:19 INR 1.2 (0.9-1.2) 11/26/16 22:19 APTT 33.7 Seconds (25.6-37.1) 11/26/16 22:19 - Constitutional Appears: No Acute Distress - ENT Exam ENT Exam: Mucous Membranes Dry - Respiratory Exam Respiratory Exam: NORMAL BREATHING PATTERN. absent: Chest Wall Tenderness, Rales - Cardiovascular Exam Cardiovascular Exam: REGULAR RHYTHM. absent: Rubs - GI/Abdominal Exam GI & Abdominal Exam: Soft, Normal Bowel Sounds - Extremities Exam Extremities Exam: absent: Calf Tenderness - Back Exam Back Exam: absent: CVA tenderness (L), CVA tenderness (R) - Neurological Exam Neurological Exam: Alert - Psychiatric Exam Psychiatric exam: Normal Affect Assessment and Plan (1) Stage 4 lung cancer Status: Acute (2) GORDY (acute kidney injury) Assessment & Plan: Acute kidney injury perhaps from the chemotherapy most likely? Disproportion high BUN/creatinine to creatinine most likely related to dexamethasone intravenous Patient appeared also to be dehydrated Discussed with the nurse to give IV fluid D5 normal saline 75 mL/h Patient also to receive radiation therapy and the rest of the medical problem Status: Acute
[2016-12-10] MEDS: Dextrose 5%/0.9% NS 1,000 ML IV SCH ×2 (09:03→21:18)
[2016-12-10] MEDS ORDERED: Chlorhexidine Gluconate 1 APPL/PKT TP ONE (10:42)
--- NOTE | 2016-12-10 12:09 | CP.PCM.PN ---
Subjective - Date & Time of Evaluation Date of Evaluation: 12/10/16 Time of Evaluation: 12:03 - Subjective Subjective: Pt is feeling beter , only c/o contipation. He missed his RT because his WBC was 0.4. He was started on granix yesterday, and will continue until his wbc is above 8.0 . Vital signs normal, Will continue the RT tomorrow. pt is a little more alert, no aggressiveness. Objective - Vital Signs/Intake and Output Vital Signs (last 24 hours): Temp Pulse Resp BP Pulse Ox 97.4 F L 72 20 121/75 99 12/10/16 07:51 12/10/16 07:51 12/10/16 07:51 12/10/16 07:51 12/10/16 07:51 - Medications Medications: Current Medications Albuterol/Ipratropium (Duoneb 3 Mg/0.5 Mg (3 Ml) Ud) 3 ml INH RTID [facility] Last Admin: 12/10/16 08:04 Dose: Not Given Alprazolam (Xanax) 0.5 mg PO TID PRN PRN Reason: Anxiety Last Admin: 12/10/16 04:50 Dose: 0.5 mg Alprazolam (Xanax) 1 mg PO TID [facility] Last Admin: 12/10/16 09:09 Dose: 1 mg Calcium Carbonate (Oscal) 500 mg PO BID [facility] Last Admin: 12/10/16 09:09 Dose: 500 mg Dexamethasone (Decadron) 6 mg PO Q12 [facility] Last Admin: 12/10/16 09:02 Dose: 6 mg Docusate Sodium (Colace) 200 mg PO DAILY [facility] Last Admin: 12/10/16 09:02 Dose: 200 mg Famotidine (Pepcid) 20 mg PO DAILY [facility] Last Admin: 12/10/16 09:09 Dose: 20 mg Hydromorphone HCl (Dilaudid) 4 mg IVP Q4 [facility] Last Admin: 12/10/16 09:03 Dose: 4 mg Dextrose/Sodium Chloride (Dextrose 5%/0.9% Ns 1000 Ml) 1,000 mls @ 75 mls/hr IV .[id number] [facility] Stop: 12/11/16 08:19 Last Admin: 12/10/16 09:03 Dose: 75 mls/hr Methadone HCl (Methadone) 10 mg PO Q4 [facility] Last Admin: 12/10/16 09:08 Dose: 10 mg Ondansetron HCl (Zofran Inj) 4 mg IVP Q4 PRN PRN Reason: Nausea/Vomiting Last Admin: 12/10/16 08:27 Dose: 4 mg Sennosides (Senokot Tab) 17.2 mg PO HS [facility] Last Admin: 12/09/16 21:14 Dose: 17.2 mg - Labs Labs: 12/10/16 06:00 12/10/16 06:00 PT 14.0 Seconds (9.8-13.1) H 11/26/16 22:19 INR 1.2 (0.9-1.2) 11/26/16 22:19 APTT 33.7 Seconds (25.6-37.1) 11/26/16 22:19
--- NOTE | 2016-12-10 14:31 | CP.PCM.PN ---
Subjective - Date & Time of Evaluation Date of Evaluation: 12/10/16 - Subjective Subjective: F/U Chest wall pain/ TMJ pain. Calm, numbness with mild pain with numbness chin bone , rectal pain 2nd to constipation Objective - Vital Signs/Intake and Output Vital Signs (last 24 hours): Temp Pulse Resp BP Pulse Ox 97.4 F L 72 20 121/75 99 12/10/16 07:51 12/10/16 07:51 12/10/16 07:51 12/10/16 07:51 12/10/16 07:51 - Medications Medications: Current Medications Albuterol/Ipratropium (Duoneb 3 Mg/0.5 Mg (3 Ml) Ud) 3 ml INH RTID [facility] Last Admin: 12/10/16 13:31 Dose: Not Given Alprazolam (Xanax) 0.5 mg PO TID PRN PRN Reason: Anxiety Last Admin: 12/10/16 04:50 Dose: 0.5 mg Alprazolam (Xanax) 1 mg PO TID [facility] Last Admin: 12/10/16 12:56 Dose: 1 mg Calcium Carbonate (Oscal) 500 mg PO BID [facility] Last Admin: 12/10/16 09:09 Dose: 500 mg Dexamethasone (Decadron) 6 mg PO Q12 [facility] Last Admin: 12/10/16 09:02 Dose: 6 mg Docusate Sodium (Colace) 200 mg PO DAILY [facility] Last Admin: 12/10/16 09:02 Dose: 200 mg Famotidine (Pepcid) 20 mg PO DAILY [facility] Last Admin: 12/10/16 09:09 Dose: 20 mg Hydromorphone HCl (Dilaudid) 4 mg IVP Q4 [facility] Last Admin: 12/10/16 12:55 Dose: 4 mg Dextrose/Sodium Chloride (Dextrose 5%/0.9% Ns 1000 Ml) 1,000 mls @ 75 mls/hr IV .[id number] [facility] Stop: 12/11/16 08:19 Last Admin: 12/10/16 09:03 Dose: 75 mls/hr Methadone HCl (Methadone) 10 mg PO Q4 [facility] Last Admin: 12/10/16 12:59 Dose: 10 mg Ondansetron HCl (Zofran Inj) 4 mg IVP Q4 PRN PRN Reason: Nausea/Vomiting Last Admin: 12/10/16 08:27 Dose: 4 mg Sennosides (Senokot Tab) 17.2 mg PO HS [facility] Last Admin: 12/09/16 21:14 Dose: 17.2 mg - Labs Labs: 12/10/16 06:00 12/10/16 06:00 PT 14.0 Seconds (9.8-13.1) H 11/26/16 22:19 INR 1.2 (0.9-1.2) 11/26/16 22:19 APTT 33.7 Seconds (25.6-37.1) 11/26/16 22:19 - Constitutional Appears: No Acute Distress, Chronically Ill - Head Exam Head Exam: NORMAL INSPECTION - Eye Exam Eye Exam: PERRL - ENT Exam Additional comments: Minimal tenderness TMJ and anterior mandible area - Neck Exam Neck Exam: Normal Inspection - Respiratory Exam Respiratory Exam: Clear to Ausculation Bilateral - Cardiovascular Exam Cardiovascular Exam: REGULAR RHYTHM - GI/Abdominal Exam GI & Abdominal Exam: Soft, Normal Bowel Sounds - Extremities Exam Extremities Exam: Normal Inspection - Back Exam Back Exam: tenderness (L-S) - Neurological Exam Neurological Exam: Alert, Awake, Oriented x3. absent: Motor Sensory Deficit Additional comments: Confused at times. - Psychiatric Exam Psychiatric exam: Anxious, Depressed - Skin Skin Exam: Normal Color, Warm Assessment and Plan (1) Chest wall pain, chronic Status: Acute (2) Temporomandibular joint (TMJ) pain Status: Acute (3) Maxillary pain Status: Acute (4) Mandible pain Status: Acute (5) Malignant neoplasm metastatic to liver Status: Acute (6) Stage 4 lung cancer Status: Acute (7) GORDY (acute kidney injury) Status: Acute (8) Brain metastasis Status: Acute (9) Anxiety Status: Chronic (10) Change in mental status Status: Acute (11) Leukopenia Status: Acute (12) Pancytopenia Status: Acute (13) Constipation Status: Acute - Assessment and Plan (Free Text) Plan: wbc 0.4 on Granix since yesterday RT on hold, resume RT am , Patient on Dilaudid IV, refusing Dilaudid po , on Methadone po , Lactulose , Dulcolax supp., f/u with Social Service
[2016-12-11] MEDS: Dextrose 5%/0.9% NS 1,000 ML IV SCH ×3 (05:20→22:30)
[2016-12-11 05:49] LABS: HEMATOCRIT 24.5 % (35.0-51.0); MEAN CELL VOLUME 78.8 fl (80.0-94.0); MEAN CORPUSCULAR HEMOGLOBIN 26.7 pg (27.0-31.0); MEAN CORPUSCULAR HGB CONC 33.9 g/dL (33.0-37.0); RED CELL DISTRIBUTION WIDTH 18.5 % (11.5-14.5)
[2016-12-11 05:56] LABS: WHITE BLOOD COUNT 0.4 K/uL (4.8-10.8)
[2016-12-11 06:05] LABS: ALB/GLOB RATIO 1.4 (1.0-2.1); BILIRUBIN,TOTAL 0.4 mg/dl (0.2-1.3); CALCIUM 6.7 mg/dL (8.4-10.2); POTASSIUM 4.5 MMOL/L (3.6-5.0); TOTAL PROTEIN 6.7 G/DL (6.3-8.2)
[2016-12-11] MEDS: Albuterol-Ipratrop 3 mg / 0.5 (3 ml) UD INH SCH ×3 (07:39→20:49)
--- NOTE | 2016-12-11 08:18 | CP.PCM.PN ---
Subjective - Date & Time of Evaluation Date of Evaluation: 12/11/16 Time of Evaluation: 08:00 - Subjective Subjective: Mr Rubio is known to our department. He is getting whole brain radiation. We held his RT yesterday due to his blood counts. Today, his WBC remains 0.4 and his platelets are below 40. We discussed this with Dr Durán. We will hold again today, and will recheck tomorrow to assess whether we can resume RT. Objective - Vital Signs/Intake and Output Vital Signs (last 24 hours): Temp Pulse Resp BP Pulse Ox 98.0 F 72 20 124/83 100 12/11/16 07:46 12/11/16 07:46 12/11/16 07:46 12/11/16 07:46 12/11/16 07:46 - Medications Medications: Current Medications Albuterol/Ipratropium (Duoneb 3 Mg/0.5 Mg (3 Ml) Ud) 3 ml INH RTID [facility] Last Admin: 12/11/16 07:39 Dose: Not Given Alprazolam (Xanax) 0.5 mg PO TID PRN PRN Reason: Anxiety Last Admin: 12/10/16 04:50 Dose: 0.5 mg Alprazolam (Xanax) 1 mg PO TID [facility] Last Admin: 12/10/16 17:19 Dose: 1 mg Calcium Carbonate (Oscal) 500 mg PO BID [facility] Last Admin: 12/10/16 17:19 Dose: 500 mg Dexamethasone (Decadron) 6 mg PO Q12 [facility] Last Admin: 12/10/16 21:09 Dose: 6 mg Docusate Sodium (Colace) 200 mg PO DAILY [facility] Last Admin: 12/10/16 09:02 Dose: 200 mg Famotidine (Pepcid) 20 mg PO DAILY [facility] Last Admin: 12/10/16 09:09 Dose: 20 mg Hydromorphone HCl (Dilaudid) 4 mg IVP Q4 [facility] Last Admin: 12/11/16 05:14 Dose: 4 mg Dextrose/Sodium Chloride (Dextrose 5%/0.9% Ns 1000 Ml) 1,000 mls @ 75 mls/hr IV .[id number] [facility] Stop: 12/11/16 08:19 Last Admin: 12/11/16 05:20 Dose: 75 mls/hr Methadone HCl (Methadone) 10 mg PO Q4 [facility] Last Admin: 12/11/16 05:12 Dose: 10 mg Ondansetron HCl (Zofran Inj) 4 mg IVP Q4 PRN PRN Reason: Nausea/Vomiting Last Admin: 12/11/16 01:35 Dose: 4 mg Sennosides (Senokot Tab) 17.2 mg PO HS [facility] Last Admin: 12/10/16 21:10 Dose: 17.2 mg - Labs Labs: 12/11/16 05:00 12/11/16 05:00 PT 14.0 Seconds (9.8-13.1) H 11/26/16 22:19 INR 1.2 (0.9-1.2) 11/26/16 22:19 APTT 33.7 Seconds (25.6-37.1) 11/26/16 22:19
--- NOTE | 2016-12-11 09:26 | CP.PCM.PN ---
Subjective - Date & Time of Evaluation Date of Evaluation: 12/11/16 Time of Evaluation: 09:24 - Subjective Subjective: Patient appeared to be stable Seething his pain medication No vomiting reported Objective - Vital Signs/Intake and Output Vital Signs (last 24 hours): Temp Pulse Resp BP Pulse Ox 98.0 F 72 20 124/83 100 12/11/16 07:46 12/11/16 07:46 12/11/16 07:46 12/11/16 07:46 12/11/16 07:46 - Medications Medications: Current Medications Albuterol/Ipratropium (Duoneb 3 Mg/0.5 Mg (3 Ml) Ud) 3 ml INH RTID [facility] Last Admin: 12/11/16 07:39 Dose: Not Given Alprazolam (Xanax) 0.5 mg PO TID PRN PRN Reason: Anxiety Last Admin: 12/10/16 04:50 Dose: 0.5 mg Alprazolam (Xanax) 1 mg PO TID [facility] Last Admin: 12/11/16 09:05 Dose: 1 mg Calcium Carbonate (Oscal) 500 mg PO BID [facility] Last Admin: 12/11/16 09:05 Dose: 500 mg Dexamethasone (Decadron) 6 mg PO Q12 [facility] Last Admin: 12/11/16 09:02 Dose: 6 mg Docusate Sodium (Colace) 200 mg PO DAILY [facility] Last Admin: 12/11/16 09:01 Dose: 200 mg Famotidine (Pepcid) 20 mg PO DAILY [facility] Last Admin: 12/11/16 09:05 Dose: 20 mg Hydromorphone HCl (Dilaudid) 4 mg IVP Q4 [facility] Last Admin: 12/11/16 09:03 Dose: 4 mg Dextrose/Sodium Chloride (Dextrose 5%/0.9% Ns 1000 Ml) 1,000 mls @ 75 mls/hr IV .[id number] [facility] Stop: 12/12/16 08:45 Methadone HCl (Methadone) 10 mg PO Q4 [facility] Last Admin: 12/11/16 09:04 Dose: 10 mg Ondansetron HCl (Zofran Inj) 4 mg IVP Q4 PRN PRN Reason: Nausea/Vomiting Last Admin: 12/11/16 08:42 Dose: 4 mg Sennosides (Senokot Tab) 17.2 mg PO HS [facility] Last Admin: 12/10/16 21:10 Dose: 17.2 mg - Labs Labs: 12/11/16 05:00 12/11/16 05:00 PT 14.0 Seconds (9.8-13.1) H 11/26/16 22:19 INR 1.2 (0.9-1.2) 11/26/16 22:19 APTT 33.7 Seconds (25.6-37.1) 11/26/16 22:19 - Constitutional Appears: No Acute Distress - ENT Exam ENT Exam: Mucous Membranes Moist - Respiratory Exam Respiratory Exam: absent: Chest Wall Tenderness - Cardiovascular Exam Cardiovascular Exam: absent: JVD, Rubs - GI/Abdominal Exam GI & Abdominal Exam: Soft, Normal Bowel Sounds - Extremities Exam Extremities Exam: absent: Calf Tenderness - Back Exam Back Exam: absent: CVA tenderness (L), CVA tenderness (R) - Neurological Exam Neurological Exam: Alert Assessment and Plan (1) Stage 4 lung cancer Status: Acute (2) GORDY (acute kidney injury) Assessment & Plan: Serum creatinine improving , coming down BUN improving , coming down since we started hydration yesterday Continue gentle hydration White count still very low 0.4 As per oncology for the radiation therapy among other things. Status: Acute
--- NOTE | 2016-12-11 10:10 | PQF GENQUE ---
Dr. Saxena, Etiology of Pancytopenia if known? OR:Unable to determine 12/01 Resident note: pt. with intermittent episodes of confusion during chemo infusion 12/10: Attending progress note: diagnoses include: Pancytopenia ; wbc 0.4 on Granix since yesterday RT on hold, resume RT am , 12/11; Progress note: getting whole brain radiation. We held his RT yesterday due to his blood counts. Today, his WBC remains 0.4 and his platelets are below 40..hold again today Hematology labs as of 12/09: WBC:1.4->0.4->0.4 RBC:3.09->3.07->3.11 Plt.: 62->47->3 This form is a permanent part of the medical record Clarification of your documentation is requested to better reflect the severity of illness and intensity of treatment of your patient. Indicators present [] Specify: [] [] Specify: [] [] Specify: [] [] Specify: [] Location in the medical record that reflects the above clinical findings: [] Treatment Provided: [] PHYSICIAN'S RESPONSE Based on your medical judgment of the clinical indicators outlined above please clarify the following: [] Practitioner response [] If unable to determine, please check the box, sign and date. Present On Admission (POA) Indicator: [] Present at the time of admission [] Not present at the time of admission [] Clinically Undetermined In responding to this query, please exercise your independent professional judgment. The fact that a question is asked does not imply that any particular answer is desired or expected. Thank you for your clarification on this documentation. If you have any questions please call. * Thank you, Ntaali Silverio RN ext. #[phone]: Omaira Candelaria RN MTDD
--- NOTE | 2016-12-11 11:23 | CP.PCM.PN ---
Subjective - Date & Time of Evaluation Date of Evaluation: 12/11/16 Time of Evaluation: 11:14 - Subjective Subjective: Pt is still neutropenic and the platelet count is also trending down. We cancelled the Rt yesterday as well as today.Dr Bird feels that until the platelets improve, there are chances of intracranial bleed . Will continue the granix. Objective - Vital Signs/Intake and Output Vital Signs (last 24 hours): Temp Pulse Resp BP Pulse Ox 98.0 F 72 20 124/83 100 12/11/16 07:46 12/11/16 07:46 12/11/16 07:46 12/11/16 07:46 12/11/16 07:46 - Medications Medications: Current Medications Albuterol/Ipratropium (Duoneb 3 Mg/0.5 Mg (3 Ml) Ud) 3 ml INH RTID [facility] Last Admin: 12/11/16 07:39 Dose: Not Given Alprazolam (Xanax) 0.5 mg PO TID PRN PRN Reason: Anxiety Last Admin: 12/10/16 04:50 Dose: 0.5 mg Alprazolam (Xanax) 1 mg PO TID [facility] Last Admin: 12/11/16 09:05 Dose: 1 mg Calcium Carbonate (Oscal) 500 mg PO BID [facility] Last Admin: 12/11/16 09:05 Dose: 500 mg Dexamethasone (Decadron) 6 mg PO Q12 [facility] Last Admin: 12/11/16 09:02 Dose: 6 mg Docusate Sodium (Colace) 200 mg PO DAILY [facility] Last Admin: 12/11/16 09:01 Dose: 200 mg Famotidine (Pepcid) 20 mg PO DAILY [facility] Last Admin: 12/11/16 09:05 Dose: 20 mg Hamamelis (Tucks) 1 pad TP Q2 PRN PRN Reason: Hemorrhoids Hydromorphone HCl (Dilaudid) 4 mg IVP Q4 [facility] Last Admin: 12/11/16 09:03 Dose: 4 mg Dextrose/Sodium Chloride (Dextrose 5%/0.9% Ns 1000 Ml) 1,000 mls @ 75 mls/hr IV .[id number] [facility] Stop: 12/12/16 08:45 Last Admin: 12/11/16 10:58 Dose: 75 mls/hr Methadone HCl (Methadone) 10 mg PO Q4 [facility] Last Admin: 12/11/16 09:04 Dose: 10 mg Ondansetron HCl (Zofran Inj) 4 mg IVP Q4 PRN PRN Reason: Nausea/Vomiting Last Admin: 12/11/16 08:42 Dose: 4 mg Sennosides (Senokot Tab) 17.2 mg PO HS [facility] Last Admin: 12/10/16 21:10 Dose: 17.2 mg - Labs Labs: 12/11/16 05:00 12/11/16 05:00 PT 14.0 Seconds (9.8-13.1) H 11/26/16 22:19 INR 1.2 (0.9-1.2) 11/26/16 22:19 APTT 33.7 Seconds (25.6-37.1) 11/26/16 22:19
[2016-12-11] MEDS ORDERED: Chlorhexidine Gluconate 1 APPL/PKT TP ONE (11:34)
[2016-12-11] MEDS: Anusol Suppository PR PRN (11:37)
[2016-12-11] MEDS: Hydrocortisone 2.5% (Rectal) CREAM PR SCH (16:55)
--- NOTE | 2016-12-11 18:30 | CP.PCM.PN ---
Subjective - Date & Time of Evaluation Date of Evaluation: 12/11/16 Time of Evaluation: 10:40 - Subjective Subjective: Chest wall and TMJ pain. Pain in rectal area, constipated, had Laculose and Dulcolax supp. , had a BM yesterday, numbness chin area , no R hemithorax pain, calm, cooperative. Objective - Vital Signs/Intake and Output Vital Signs (last 24 hours): Temp Pulse Resp BP Pulse Ox 97.5 F L 76 18 112/74 100 12/11/16 15:53 12/11/16 15:53 12/11/16 15:53 12/11/16 15:53 12/11/16 15:53 - Medications Medications: Current Medications Albuterol/Ipratropium (Duoneb 3 Mg/0.5 Mg (3 Ml) Ud) 3 ml INH RTID [facility] Last Admin: 12/11/16 13:34 Dose: Not Given Alprazolam (Xanax) 0.5 mg PO TID PRN PRN Reason: Anxiety Last Admin: 12/10/16 04:50 Dose: 0.5 mg Alprazolam (Xanax) 1 mg PO TID [facility] Last Admin: 12/11/16 16:54 Dose: 1 mg Calcium Carbonate (Oscal) 500 mg PO BID [facility] Last Admin: 12/11/16 16:56 Dose: 500 mg Dexamethasone (Decadron) 6 mg PO Q12 [facility] Last Admin: 12/11/16 09:02 Dose: 6 mg Docusate Sodium (Colace) 200 mg PO DAILY [facility] Last Admin: 12/11/16 09:01 Dose: 200 mg Famotidine (Pepcid) 20 mg PO DAILY [facility] Last Admin: 12/11/16 09:05 Dose: 20 mg Hamamelis (Tucks) 1 pad TP Q2 PRN PRN Reason: Hemorrhoids Last Admin: 12/11/16 16:55 Dose: 1 pad Hydrocortisone (Anusol-Hc) 1 applic CO BID [facility] Last Admin: 12/11/16 16:55 Dose: 1 u Hydromorphone HCl (Dilaudid) 4 mg IVP Q4 [facility] Last Admin: 12/11/16 16:53 Dose: 4 mg Dextrose/Sodium Chloride (Dextrose 5%/0.9% Ns 1000 Ml) 1,000 mls @ 75 mls/hr IV .[id number] [facility] Stop: 12/12/16 08:45 Last Admin: 12/11/16 10:58 Dose: 75 mls/hr Methadone HCl (Methadone) 10 mg PO Q4 [facility] Last Admin: 12/11/16 16:54 Dose: 10 mg Ondansetron HCl (Zofran Inj) 4 mg IVP Q4 PRN PRN Reason: Nausea/Vomiting Last Admin: 12/11/16 08:42 Dose: 4 mg Sennosides (Senokot Tab) 17.2 mg PO HS [facility] Last Admin: 12/10/16 21:10 Dose: 17.2 mg - Labs Labs: 12/11/16 05:00 12/11/16 05:00 PT 14.0 Seconds (9.8-13.1) H 11/26/16 22:19 INR 1.2 (0.9-1.2) 11/26/16 22:19 APTT 33.7 Seconds (25.6-37.1) 11/26/16 22:19 - Constitutional Appears: No Acute Distress, Chronically Ill - Head Exam Head Exam: NORMAL INSPECTION - Eye Exam Eye Exam: PERRL - ENT Exam Additional comments: Minimal tenderness TMJ and chin area. - Neck Exam Neck Exam: Normal Inspection - Respiratory Exam Respiratory Exam: Clear to Ausculation Bilateral - Cardiovascular Exam Cardiovascular Exam: REGULAR RHYTHM - GI/Abdominal Exam GI & Abdominal Exam: Soft, Normal Bowel Sounds - Extremities Exam Extremities Exam: Normal Inspection - Back Exam Back Exam: tenderness (L-S) - Neurological Exam Neurological Exam: Alert, Awake, Oriented x3. absent: Motor Sensory Deficit Additional comments: Confused at times. - Psychiatric Exam Psychiatric exam: Anxious, Depressed - Skin Skin Exam: Normal Color, Warm Assessment and Plan (1) Chest wall pain, chronic Status: Acute (2) Temporomandibular joint (TMJ) pain Status: Acute (3) Maxillary pain Status: Acute (4) Mandible pain Status: Acute (5) Malignant neoplasm metastatic to liver Status: Acute (6) Stage 4 lung cancer Status: Acute (7) GORDY (acute kidney injury) Status: Acute (8) Brain metastasis Status: Acute (9) Anxiety Status: Chronic (10) Change in mental status Status: Acute (11) Leukopenia Status: Acute (12) Pancytopenia Status: Acute (13) Constipation Status: Acute - Assessment and Plan (Free Text) Plan: RT on hold due to Pancytopenia , wbc 0.4 , Platelet 19 , on Granitex for 3 days , BUN 65 , Creat 2.7 , slightly improved, on IV fluids, Anusol supp, Dilaudid, Methadone , and rest of treatment.
[2016-12-12 05:43] LABS: MEAN CELL VOLUME 80.8 fl (80.0-94.0); MEAN CORPUSCULAR HEMOGLOBIN 26.6 pg (27.0-31.0); MEAN CORPUSCULAR HGB CONC 32.9 g/dL (33.0-37.0); RED CELL DISTRIBUTION WIDTH 18.2 % (11.5-14.5)
[2016-12-12 05:49] LABS: WHITE BLOOD COUNT 0.4 K/uL (4.8-10.8)
[2016-12-12] MEDS: Albuterol-Ipratrop 3 mg / 0.5 (3 ml) UD INH SCH ×3 (07:15→19:14)
[2016-12-12 07:55] LABS: CALCIUM 5.8 mg/dL (8.4-10.2)
--- NOTE | 2016-12-12 08:25 | CP.PCM.PN ---
Subjective - Date & Time of Evaluation Date of Evaluation: 12/12/16 Time of Evaluation: 08:14 - Subjective Subjective: Pt is afebrile, c/o occasional dizziness. Is on 4 mg dilaudid q 4 htrs.Claims the time in between pain meds [place] [id number]. his hgb is 7.5gm and wbc still 0.4 inspite of the granix daily. his calcium is 7.4, . Will trasfuse 2 units of packed cells and 1 unit platelets. His calcium was also only 7.3 he will receive iv calcium replacement. Will cancel today's radiation. Objective - Vital Signs/Intake and Output Vital Signs (last 24 hours): Temp Pulse Resp BP Pulse Ox 98 F 80 19 128/79 100 12/12/16 00:50 12/12/16 00:50 12/12/16 00:50 12/12/16 00:50 12/12/16 00:50 Intake and Output: 12/12/16 12/12/16 06:59 18:59 Intake Total 660 Balance 660 - Medications Medications: Current Medications Albuterol/Ipratropium (Duoneb 3 Mg/0.5 Mg (3 Ml) Ud) 3 ml INH RTID [facility] Last Admin: 12/12/16 07:15 Dose: Not Given Alprazolam (Xanax) 0.5 mg PO TID PRN PRN Reason: Anxiety Last Admin: 12/11/16 21:28 Dose: 0.5 mg Alprazolam (Xanax) 1 mg PO TID [facility] Last Admin: 12/11/16 16:54 Dose: 1 mg Calcium Carbonate (Oscal) 500 mg PO BID [facility] Last Admin: 12/11/16 16:56 Dose: 500 mg Dexamethasone (Decadron) 6 mg PO Q12 [facility] Last Admin: 12/11/16 21:26 Dose: 6 mg Docusate Sodium (Colace) 200 mg PO DAILY [facility] Last Admin: 12/11/16 09:01 Dose: 200 mg Famotidine (Pepcid) 20 mg PO DAILY [facility] Last Admin: 12/11/16 09:05 Dose: 20 mg Hamamelis (Tucks) 1 pad TP Q2 PRN PRN Reason: Hemorrhoids Last Admin: 12/11/16 16:55 Dose: 1 pad Hydrocortisone (Anusol-Hc) 1 applic [place] BID [facility] Last Admin: 12/11/16 16:55 Dose: 1 u Hydromorphone HCl (Dilaudid) 4 mg IVP Q4 [facility] Last Admin: 12/12/16 04:52 Dose: 4 mg Dextrose/Sodium Chloride (Dextrose 5%/0.9% Ns 1000 Ml) 1,000 mls @ 75 mls/hr IV .[id number] [facility] Stop: 12/12/16 08:45 Last Admin: 12/11/16 22:30 Dose: 75 mls/hr Methadone HCl (Methadone) 10 mg PO Q4 [facility] Last Admin: 12/12/16 04:54 Dose: 10 mg Ondansetron HCl (Zofran Inj) 4 mg IVP Q4 PRN PRN Reason: Nausea/Vomiting Last Admin: 12/11/16 08:42 Dose: 4 mg Sennosides (Senokot Tab) 17.2 mg PO HS [facility] Last Admin: 12/11/16 21:26 Dose: 17.2 mg - Labs Labs: 12/12/16 04:00 12/12/16 05:45 PT 14.0 Seconds (9.8-13.1) H 11/26/16 22:19 INR 1.2 (0.9-1.2) 11/26/16 22:19 APTT 33.7 Seconds (25.6-37.1) 11/26/16 22:19
[2016-12-12] MEDS: Hydrocortisone 2.5% (Rectal) CREAM PR SCH ×2 (09:45→17:09)
--- NOTE | 2016-12-12 13:27 | CP.PCM.PN ---
Subjective - Date & Time of Evaluation Date of Evaluation: 12/12/16 Time of Evaluation: 13:24 - Subjective Subjective: Patient is awake Reported to have poor appetite No vomiting Objective - Vital Signs/Intake and Output Vital Signs (last 24 hours): Temp Pulse Resp BP Pulse Ox 98.5 F 81 18 115/78 100 12/12/16 08:42 12/12/16 08:42 12/12/16 08:42 12/12/16 08:42 12/12/16 08:42 Intake and Output: 12/12/16 12/12/16 06:59 18:59 Intake Total 660 Balance 660 - Medications Medications: Current Medications Albuterol/Ipratropium (Duoneb 3 Mg/0.5 Mg (3 Ml) Ud) 3 ml INH RTID [facility] Last Admin: 12/12/16 07:15 Dose: Not Given Alprazolam (Xanax) 0.5 mg PO TID PRN PRN Reason: Anxiety Last Admin: 12/11/16 21:28 Dose: 0.5 mg Alprazolam (Xanax) 1 mg PO TID [facility] Last Admin: 12/12/16 13:23 Dose: 1 mg Calcium Carbonate (Oscal) 500 mg PO BID [facility] Last Admin: 12/12/16 09:43 Dose: 500 mg Dexamethasone (Decadron) 6 mg PO Q12 [facility] Last Admin: 12/12/16 09:43 Dose: 6 mg Docusate Sodium (Colace) 200 mg PO DAILY [facility] Last Admin: 12/12/16 09:44 Dose: 200 mg Famotidine (Pepcid) 20 mg PO DAILY [facility] Last Admin: 12/12/16 09:44 Dose: 20 mg Hamamelis (Tucks) 1 pad TP Q2 PRN PRN Reason: Hemorrhoids Last Admin: 12/11/16 16:55 Dose: 1 pad Hydrocortisone (Anusol-Hc) 1 applic [place] BID [facility] Last Admin: 12/12/16 09:45 Dose: 1 applic Hydromorphone HCl (Dilaudid) 4 mg IVP Q4 [facility] Last Admin: 12/12/16 13:23 Dose: 4 mg Methadone HCl (Methadone) 10 mg PO Q4 [facility] Last Admin: 12/12/16 13:23 Dose: 10 mg Ondansetron HCl (Zofran Inj) 4 mg IVP Q4 PRN PRN Reason: Nausea/Vomiting Last Admin: 12/11/16 08:42 Dose: 4 mg Sennosides (Senokot Tab) 17.2 mg PO HS [facility] Last Admin: 12/11/16 21:26 Dose: 17.2 mg - Labs Labs: 12/12/16 04:00 12/12/16 05:45 PT 14.0 Seconds (9.8-13.1) H 11/26/16 22:19 INR 1.2 (0.9-1.2) 11/26/16 22:19 APTT 33.7 Seconds (25.6-37.1) 11/26/16 22:19 - Constitutional Appears: No Acute Distress - ENT Exam ENT Exam: Mucous Membranes Moist - Respiratory Exam Respiratory Exam: absent: Chest Wall Tenderness - Cardiovascular Exam Cardiovascular Exam: absent: JVD, Rubs - GI/Abdominal Exam GI & Abdominal Exam: Normal Bowel Sounds - Extremities Exam Extremities Exam: absent: Calf Tenderness - Back Exam Back Exam: absent: CVA tenderness (L), CVA tenderness (R) - Neurological Exam Neurological Exam: Alert Assessment and Plan (1) Stage 4 lung cancer Assessment & Plan: #1 acute kidney injury continued to improve is slightly creatinine trending down. #2 hyponatremia serum sodium 132 if continue to drop below 130 we will give tolvaptan. #3 hypocalcemia the latest serum calcium 5.8 patient need intravenous calcium gluconate. #4 anemia with thrombocytopenia and leukopenia As per oncology blood transfusion and platelet In addition to his chronic problem with metastatic disease. Status: Acute (2) GORDY (acute kidney injury) Status: Acute
--- NOTE | 2016-12-12 16:35 | CP.PCM.PN ---
Subjective - Date & Time of Evaluation Date of Evaluation: 12/12/16 Time of Evaluation: 09:45 - Subjective Subjective: Chest Pain retrosternal , R Hemithorax anterior and posterior , numbness in chin area Objective - Vital Signs/Intake and Output Vital Signs (last 24 hours): Temp Pulse Resp BP Pulse Ox 98 F 79 18 116/76 100 12/12/16 15:45 12/12/16 15:45 12/12/16 15:45 12/12/16 15:45 12/12/16 15:45 Intake and Output: 12/12/16 12/12/16 06:59 18:59 Intake Total 660 Balance 660 - Medications Medications: Current Medications Albuterol/Ipratropium (Duoneb 3 Mg/0.5 Mg (3 Ml) Ud) 3 ml INH RTID [facility] Last Admin: 12/12/16 13:46 Dose: Not Given Alprazolam (Xanax) 0.5 mg PO TID PRN PRN Reason: Anxiety Last Admin: 12/11/16 21:28 Dose: 0.5 mg Alprazolam (Xanax) 1 mg PO TID [facility] Last Admin: 12/12/16 13:23 Dose: 1 mg Calcitriol (Rocaltrol) 0.25 mcg PO DAILY [facility] Calcium Carbonate (Oscal) 500 mg PO BID [facility] Last Admin: 12/12/16 09:43 Dose: 500 mg Dexamethasone (Decadron) 6 mg PO Q12 [facility] Last Admin: 12/12/16 09:43 Dose: 6 mg Docusate Sodium (Colace) 200 mg PO DAILY [facility] Last Admin: 12/12/16 09:44 Dose: 200 mg Famotidine (Pepcid) 20 mg PO DAILY [facility] Last Admin: 12/12/16 09:44 Dose: 20 mg Hamamelis (Tucks) 1 pad TP Q2 PRN PRN Reason: Hemorrhoids Last Admin: 12/11/16 16:55 Dose: 1 pad Hydrocortisone (Anusol-Hc) 1 applic [place] BID [facility] Last Admin: 12/12/16 09:45 Dose: 1 applic Hydromorphone HCl (Dilaudid) 4 mg IVP Q4H [facility] Methadone HCl (Methadone) 10 mg PO Q4 [facility] Last Admin: 12/12/16 13:23 Dose: 10 mg Ondansetron HCl (Zofran Inj) 4 mg IVP Q4 PRN PRN Reason: Nausea/Vomiting Last Admin: 12/11/16 08:42 Dose: 4 mg Sennosides (Senokot Tab) 17.2 mg PO HS [facility] Last Admin: 12/11/16 21:26 Dose: 17.2 mg - Labs Labs: 12/12/16 04:00 12/12/16 05:45 PT 14.0 Seconds (9.8-13.1) H 11/26/16 22:19 INR 1.2 (0.9-1.2) 11/26/16 22:19 APTT 33.7 Seconds (25.6-37.1) 11/26/16 22:19 - Constitutional Appears: In Acute Distress, Chronically Ill - Head Exam Head Exam: NORMAL INSPECTION - Eye Exam Eye Exam: PERRL - ENT Exam Additional comments: numbness chin area - Neck Exam Neck Exam: Normal Inspection - Respiratory Exam Respiratory Exam: Decreased Breath Sounds (at bases), Rhonchi (few at bases) Additional comments: tenderness R anterior and posterior chest wall - Cardiovascular Exam Cardiovascular Exam: REGULAR RHYTHM - GI/Abdominal Exam GI & Abdominal Exam: Soft, Normal Bowel Sounds - Back Exam Back Exam: tenderness (mild) - Neurological Exam Neurological Exam: Awake, CN II-XII Intact, Oriented x3. absent: Motor Sensory Deficit - Psychiatric Exam Psychiatric exam: Anxious, Depressed - Skin Skin Exam: Warm Assessment and Plan (1) Chest wall pain, chronic Status: Acute (2) Temporomandibular joint (TMJ) pain Status: Acute (3) Maxillary pain Status: Acute (4) Mandible pain Status: Acute (5) Malignant neoplasm metastatic to liver Status: Acute (6) Stage 4 lung cancer Status: Acute (7) GORDY (acute kidney injury) Status: Acute (8) Brain metastasis Status: Acute (9) Anxiety Status: Chronic (10) Change in mental status Status: Acute (11) Leukopenia Status: Acute (12) Pancytopenia Status: Acute (13) Constipation Status: Acute - Assessment and Plan (Free Text) Plan: HBG 7.2 , WBC 0.4 , Plat 19, Anemia ,Pancytopenia , RT on hold , PRBC transfusion , Granitex , Dilaudid , Methadone
[2016-12-13 07:22] LABS: HEMATOCRIT 26.3 % (35.0-51.0); MEAN CELL VOLUME 81.3 fl (80.0-94.0); MEAN CORPUSCULAR HEMOGLOBIN 26.8 pg (27.0-31.0); RED CELL DISTRIBUTION WIDTH 17.6 % (11.5-14.5)
[2016-12-13 07:30] LABS: WHITE BLOOD COUNT 0.9 K/uL (4.8-10.8)
[2016-12-13 07:36] LABS: ALB/GLOB RATIO 1.3 (1.0-2.1); BILIRUBIN,TOTAL 0.2 mg/dl (0.2-1.3); CALCIUM 6.4 mg/dL (8.4-10.2)
[2016-12-13] MEDS: Albuterol-Ipratrop 3 mg / 0.5 (3 ml) UD INH SCH ×3 (08:16→19:33)
[2016-12-13] MEDS: Hydrocortisone 2.5% (Rectal) CREAM PR SCH ×2 (08:28→16:13)
--- NOTE | 2016-12-13 09:50 | CP.PCM.PN ---
Subjective - Date & Time of Evaluation Date of Evaluation: 12/13/16 Time of Evaluation: 09:48 - Subjective Subjective: Pt is feeling well. He is still a little confused. His wbc is up to 0.9, and platelets to 35K. will continue the granix, and hope fully he will be ready for RT on thursday. His apprtite is also improved . Objective - Vital Signs/Intake and Output Vital Signs (last 24 hours): Temp Pulse Resp BP Pulse Ox 98.4 F 72 20 126/81 97 12/13/16 07:23 12/13/16 07:23 12/13/16 07:23 12/13/16 07:23 12/13/16 07:23 - Medications Medications: Current Medications Albuterol/Ipratropium (Duoneb 3 Mg/0.5 Mg (3 Ml) Ud) 3 ml INH RTID [facility] Last Admin: 12/13/16 08:16 Dose: Not Given Alprazolam (Xanax) 0.5 mg PO TID PRN PRN Reason: Anxiety Last Admin: 12/13/16 05:35 Dose: 0.5 mg Alprazolam (Xanax) 1 mg PO TID [facility] Last Admin: 12/13/16 08:27 Dose: 1 mg Calcitriol (Rocaltrol) 0.25 mcg PO DAILY [facility] Last Admin: 12/13/16 08:30 Dose: 0.25 mcg Calcium Carbonate (Oscal) 500 mg PO BID [facility] Last Admin: 12/13/16 08:30 Dose: 500 mg Dexamethasone (Decadron) 6 mg PO Q12 [facility] Last Admin: 12/13/16 08:28 Dose: 6 mg Docusate Sodium (Colace) 200 mg PO DAILY [facility] Last Admin: 12/13/16 08:28 Dose: 200 mg Famotidine (Pepcid) 20 mg PO DAILY [facility] Last Admin: 12/13/16 08:30 Dose: 20 mg Hamamelis (Tucks) 1 pad TP Q2 PRN PRN Reason: Hemorrhoids Last Admin: 12/13/16 05:48 Dose: 1 pad Hydrocortisone (Anusol-Hc) 1 applic [place] BID [facility] Last Admin: 12/13/16 08:28 Dose: 1 applic Hydromorphone HCl (Dilaudid) 4 mg IVP Q4H [facility] Last Admin: 12/13/16 08:29 Dose: 4 mg Calcium Gluconate 2,000 mg/ (Sodium Chloride) 120 mls @ 60 mls/hr IVPB ONCE ONE PRN Reason: As Directed Stop: 12/13/16 10:10 Methadone HCl (Methadone) 10 mg PO Q4 [facility] Last Admin: 12/13/16 08:27 Dose: 10 mg Ondansetron HCl (Zofran Inj) 4 mg IVP Q4 PRN PRN Reason: Nausea/Vomiting Last Admin: 12/11/16 08:42 Dose: 4 mg Sennosides (Senokot Tab) 17.2 mg PO HS [facility] Last Admin: 12/12/16 21:49 Dose: 17.2 mg - Labs Labs: 12/13/16 07:00 12/13/16 07:00 PT 14.0 Seconds (9.8-13.1) H 11/26/16 22:19 INR 1.2 (0.9-1.2) 11/26/16 22:19 APTT 33.7 Seconds (25.6-37.1) 11/26/16 22:19
--- NOTE | 2016-12-13 12:47 | CP.PCM.PN ---
Subjective - Date & Time of Evaluation Date of Evaluation: 12/13/16 Time of Evaluation: 10:50 - Subjective Subjective: numbness chin area , no headache , R Hemithorax pain improved , rectal pain improved , had BM yesterday Objective - Vital Signs/Intake and Output Vital Signs (last 24 hours): Temp Pulse Resp BP Pulse Ox 98.4 F 72 20 126/81 97 12/13/16 07:23 12/13/16 07:23 12/13/16 07:23 12/13/16 07:23 12/13/16 07:23 - Medications Medications: Current Medications Albuterol/Ipratropium (Duoneb 3 Mg/0.5 Mg (3 Ml) Ud) 3 ml INH RTID [facility] Last Admin: 12/13/16 08:16 Dose: Not Given Alprazolam (Xanax) 0.5 mg PO TID PRN PRN Reason: Anxiety Last Admin: 12/13/16 05:35 Dose: 0.5 mg Alprazolam (Xanax) 1 mg PO TID [facility] Last Admin: 12/13/16 08:27 Dose: 1 mg Calcitriol (Rocaltrol) 0.25 mcg PO DAILY [facility] Last Admin: 12/13/16 08:30 Dose: 0.25 mcg Calcium Carbonate (Oscal) 500 mg PO BID [facility] Last Admin: 12/13/16 08:30 Dose: 500 mg Dexamethasone (Decadron) 6 mg PO Q12 [facility] Last Admin: 12/13/16 08:28 Dose: 6 mg Docusate Sodium (Colace) 200 mg PO DAILY [facility] Last Admin: 12/13/16 08:28 Dose: 200 mg Famotidine (Pepcid) 20 mg PO DAILY [facility] Last Admin: 12/13/16 08:30 Dose: 20 mg Hamamelis (Tucks) 1 pad TP Q2 PRN PRN Reason: Hemorrhoids Last Admin: 12/13/16 05:48 Dose: 1 pad Hydrocortisone (Anusol-Hc) 1 applic [place] BID [facility] Last Admin: 12/13/16 08:28 Dose: 1 applic Hydromorphone HCl (Dilaudid) 4 mg IVP Q4H [facility] Last Admin: 12/13/16 08:29 Dose: 4 mg Methadone HCl (Methadone) 10 mg PO Q4 [facility] Last Admin: 12/13/16 08:27 Dose: 10 mg Ondansetron HCl (Zofran Inj) 4 mg IVP Q4 PRN PRN Reason: Nausea/Vomiting Last Admin: 12/11/16 08:42 Dose: 4 mg Sennosides (Senokot Tab) 17.2 mg PO HS [facility] Last Admin: 12/12/16 21:49 Dose: 17.2 mg - Labs Labs: 12/13/16 07:00 12/13/16 07:00 PT 14.0 Seconds (9.8-13.1) H 11/26/16 22:19 INR 1.2 (0.9-1.2) 11/26/16 22:19 APTT 33.7 Seconds (25.6-37.1) 11/26/16 22:19 - Constitutional Appears: Chronically Ill - Head Exam Head Exam: NORMAL INSPECTION - Eye Exam Pupil Exam: PERRL - ENT Exam Additional comments: numbness Chin bone area - Neck Exam Neck Exam: Normal Inspection - Respiratory Exam Respiratory Exam: Rhonchi (few aat bases) Additional comments: mild tenderness R Hemithorax - Cardiovascular Exam Cardiovascular Exam: REGULAR RHYTHM - GI/Abdominal Exam GI & Abdominal Exam: Soft, Normal Bowel Sounds - Back Exam Back Exam: tenderness (mild) - Neurological Exam Neurological Exam: Alert, Oriented x3 Additional comments: no focal motor/sensory deficit - Skin Skin Exam: Warm Assessment and Plan (1) Chest wall pain, chronic Status: Acute (2) Temporomandibular joint (TMJ) pain Status: Acute (3) Maxillary pain Status: Acute (4) Mandible pain Status: Acute (5) Malignant neoplasm metastatic to liver Status: Acute (6) Stage 4 lung cancer Status: Acute (7) GORDY (acute kidney injury) Status: Acute (8) Brain metastasis Status: Acute (9) Anxiety Status: Chronic (10) Change in mental status Status: Acute (11) Leukopenia Status: Acute (12) Pancytopenia Status: Acute (13) Constipation Status: Acute - Assessment and Plan (Free Text) Plan: Continue Dilaudid , Decadron,Methadone, Xanax , Neutropenic isolation and rest og treatment
[2016-12-13] MEDS: Anusol Suppository PR PRN (20:29)
--- NOTE | 2016-12-13 20:52 | CP.PCM.PN ---
Subjective - Date & Time of Evaluation Date of Evaluation: 12/13/16 Time of Evaluation: 10:00 - Subjective Subjective: renal follow up note no events ovenright poor appetite VSS nad lying in bed heent normal op moist s1s2 present no resp distress abd soft skin normal flat affect a&p: ruby/hyponatremia/hypocalcemia/lung cancer cr stable sodium levels improved calcium better today, continue replacement i have ordered pth and vitamin d levels please call @ [phone] for any qs or concerns Objective - Vital Signs/Intake and Output Vital Signs (last 24 hours): Temp Pulse Resp BP Pulse Ox 97.4 F L 83 19 118/77 100 12/13/16 15:54 12/13/16 15:54 12/13/16 15:54 12/13/16 15:54 12/13/16 15:54 Intake and Output: 12/13/16 12/14/16 18:59 06:59 Intake Total 450 Balance 450 - Medications Medications: Current Medications Albuterol/Ipratropium (Duoneb 3 Mg/0.5 Mg (3 Ml) Ud) 3 ml INH RTID [facility] Last Admin: 12/13/16 19:33 Dose: Not Given Alprazolam (Xanax) 0.5 mg PO TID PRN PRN Reason: Anxiety Last Admin: 12/13/16 20:23 Dose: 0.5 mg Alprazolam (Xanax) 1 mg PO TID [facility] Last Admin: 12/13/16 16:12 Dose: 1 mg Calcitriol (Rocaltrol) 0.25 mcg PO DAILY [facility] Last Admin: 12/13/16 08:30 Dose: 0.25 mcg Calcium Carbonate (Oscal) 500 mg PO BID [facility] Last Admin: 12/13/16 16:13 Dose: 500 mg Dexamethasone (Decadron) 6 mg PO Q12 [facility] Last Admin: 12/13/16 20:18 Dose: 6 mg Docusate Sodium (Colace) 200 mg PO DAILY [facility] Last Admin: 12/13/16 08:28 Dose: 200 mg Famotidine (Pepcid) 20 mg PO DAILY [facility] Last Admin: 12/13/16 08:30 Dose: 20 mg Hamamelis (Tucks) 1 pad TP Q2 PRN PRN Reason: Hemorrhoids Last Admin: 12/13/16 05:48 Dose: 1 pad Hydrocortisone (Anusol-Hc) 1 applic [place] BID [facility] Last Admin: 12/13/16 16:13 Dose: 1 applic Hydromorphone HCl (Dilaudid) 4 mg IVP Q4H [facility] Last Admin: 12/13/16 20:00 Dose: 4 mg Methadone HCl (Methadone) 10 mg PO Q4 [facility] Last Admin: 12/13/16 20:21 Dose: 10 mg Ondansetron HCl (Zofran Inj) 4 mg IVP Q4 PRN PRN Reason: Nausea/Vomiting Last Admin: 12/11/16 08:42 Dose: 4 mg Sennosides (Senokot Tab) 17.2 mg PO HS [facility] Last Admin: 12/12/16 21:49 Dose: 17.2 mg - Labs Labs: 12/13/16 07:00 12/13/16 07:00 PT 14.0 Seconds (9.8-13.1) H 11/26/16 22:19 INR 1.2 (0.9-1.2) 11/26/16 22:19 APTT 33.7 Seconds (25.6-37.1) 11/26/16 22:19
[2016-12-14] MEDS: Albuterol-Ipratrop 3 mg / 0.5 (3 ml) UD INH SCH ×3 (07:30→19:23)
[2016-12-14] MEDS: Hydrocortisone 2.5% (Rectal) CREAM PR SCH ×2 (10:50→17:43)
--- NOTE | 2016-12-14 16:01 | CP.PCM.PN ---
Subjective - Date & Time of Evaluation Date of Evaluation: 12/14/16 Time of Evaluation: 10:50 - Subjective Subjective: F/U Chest wall pain/ TMJ pain. Pt c/o of numbness in the chin bone area, R Hemithorax pain improved. Objective - Vital Signs/Intake and Output Vital Signs (last 24 hours): Temp Pulse Resp BP Pulse Ox 98.2 F 79 99 H 114/79 20 L 12/14/16 07:24 12/14/16 07:24 12/14/16 07:24 12/14/16 07:24 12/14/16 07:24 - Medications Medications: Current Medications Albuterol/Ipratropium (Duoneb 3 Mg/0.5 Mg (3 Ml) Ud) 3 ml INH RTID [facility] Last Admin: 12/14/16 13:06 Dose: Not Given Alprazolam (Xanax) 0.5 mg PO TID PRN PRN Reason: Anxiety Last Admin: 12/14/16 10:40 Dose: 0.5 mg Alprazolam (Xanax) 1 mg PO TID [facility] Last Admin: 12/14/16 13:49 Dose: 1 mg Calcitriol (Rocaltrol) 0.25 mcg PO DAILY [facility] Last Admin: 12/14/16 10:46 Dose: 0.25 mcg Calcium Carbonate (Oscal) 500 mg PO BID [facility] Last Admin: 12/14/16 10:46 Dose: 500 mg Dexamethasone (Decadron) 6 mg PO Q12 [facility] Last Admin: 12/14/16 10:46 Dose: 6 mg Docusate Sodium (Colace) 200 mg PO DAILY [facility] Last Admin: 12/14/16 10:46 Dose: 200 mg Famotidine (Pepcid) 20 mg PO DAILY [facility] Last Admin: 12/14/16 10:47 Dose: 20 mg Hamamelis (Tucks) 1 pad TP Q2 PRN PRN Reason: Hemorrhoids Last Admin: 12/13/16 05:48 Dose: 1 pad Hydrocortisone (Anusol-Hc) 1 applic [place] BID [facility] Last Admin: 12/14/16 10:50 Dose: 1 applic Hydromorphone HCl (Dilaudid) 4 mg IVP Q4H [facility] Last Admin: 12/14/16 13:48 Dose: 4 mg Methadone HCl (Methadone) 10 mg PO Q4 [facility] Last Admin: 12/14/16 13:49 Dose: 10 mg Ondansetron HCl (Zofran Inj) 4 mg IVP Q4 PRN PRN Reason: Nausea/Vomiting Last Admin: 12/11/16 08:42 Dose: 4 mg Sennosides (Senokot Tab) 17.2 mg PO HS [facility] Last Admin: 12/13/16 21:27 Dose: 17.2 mg - Labs Labs: 12/13/16 07:00 12/13/16 07:00 PT 14.0 Seconds (9.8-13.1) H 11/26/16 22:19 INR 1.2 (0.9-1.2) 11/26/16 22:19 APTT 33.7 Seconds (25.6-37.1) 11/26/16 22:19 - Constitutional Appears: No Acute Distress, Chronically Ill - Head Exam Head Exam: NORMAL INSPECTION - Eye Exam Eye Exam: PERRL - ENT Exam Additional comments: Numbness chine bone area - Neck Exam Neck Exam: Normal Inspection - Respiratory Exam Respiratory Exam: Clear to Ausculation Bilateral Additional comments: Mild tenderness on palpation R Hemithorax. - Cardiovascular Exam Cardiovascular Exam: REGULAR RHYTHM - GI/Abdominal Exam GI & Abdominal Exam: Soft, Normal Bowel Sounds - Extremities Exam Extremities Exam: Normal Inspection - Back Exam Back Exam: tenderness (mild) - Neurological Exam Neurological Exam: Alert, Oriented x3 Additional comments: No focal motor/sensory deficit - Psychiatric Exam Psychiatric exam: Anxious, Depressed - Skin Skin Exam: Warm Assessment and Plan (1) Chest wall pain, chronic Status: Acute (2) Temporomandibular joint (TMJ) pain Status: Acute (3) Maxillary pain Status: Acute (4) Mandible pain Status: Acute (5) Malignant neoplasm metastatic to liver Status: Acute (6) Stage 4 lung cancer Status: Acute (7) GORDY (acute kidney injury) Status: Acute (8) Brain metastasis Status: Acute (9) Anxiety Status: Chronic (10) Change in mental status Status: Acute (11) Leukopenia Status: Acute (12) Pancytopenia Status: Acute (13) Constipation Status: Acute - Assessment and Plan (Free Text) Plan: Continue Dilaudid, Methadone, Duoneb and rest of Tx.
[2016-12-15] MEDS: Albuterol-Ipratrop 3 mg / 0.5 (3 ml) UD INH SCH ×3 (07:26→19:20)
[2016-12-15 09:22] LABS: HEMATOCRIT 29.3 % (35.0-51.0); MEAN CORPUSCULAR HEMOGLOBIN 26.7 pg (27.0-31.0); MEAN CORPUSCULAR HGB CONC 32.5 g/dL (33.0-37.0); RED CELL DISTRIBUTION WIDTH 18.1 % (11.5-14.5); WHITE BLOOD COUNT 12.1 K/uL (4.8-10.8)
--- NOTE | 2016-12-15 10:11 | CP.PCM.PN ---
Subjective - Date & Time of Evaluation Date of Evaluation: 12/15/16 Time of Evaluation: 10:00 - Subjective Subjective: Mr Rubio is known to our department. He is on whole brain radiation which has been held due to pancytopenia. His blood work is improving. We called the floor today about resuming RT Pt refused for today We will follow up with him again tomorrow Objective - Vital Signs/Intake and Output Vital Signs (last 24 hours): Temp Pulse Resp BP Pulse Ox 98.2 F 88 20 144/84 99 12/15/16 08:43 12/15/16 08:43 12/15/16 08:43 12/15/16 08:43 12/15/16 08:43 - Medications Medications: Current Medications Albuterol/Ipratropium (Duoneb 3 Mg/0.5 Mg (3 Ml) Ud) 3 ml INH RTID [facility] Last Admin: 12/15/16 07:26 Dose: Not Given Alprazolam (Xanax) 0.5 mg PO TID PRN PRN Reason: Anxiety Last Admin: 12/14/16 10:40 Dose: 0.5 mg Alprazolam (Xanax) 1 mg PO TID [facility] Last Admin: 12/14/16 17:37 Dose: 1 mg Calcitriol (Rocaltrol) 0.25 mcg PO DAILY [facility] Last Admin: 12/14/16 10:46 Dose: 0.25 mcg Calcium Carbonate (Oscal) 500 mg PO BID [facility] Last Admin: 12/14/16 17:47 Dose: 500 mg Dexamethasone (Decadron) 6 mg PO Q12 [facility] Last Admin: 12/14/16 21:09 Dose: 6 mg Docusate Sodium (Colace) 200 mg PO DAILY [facility] Last Admin: 12/14/16 10:46 Dose: 200 mg Famotidine (Pepcid) 20 mg PO DAILY [facility] Last Admin: 12/14/16 10:47 Dose: 20 mg Hamamelis (Tucks) 1 pad TP Q2 PRN PRN Reason: Hemorrhoids Last Admin: 12/13/16 05:48 Dose: 1 pad Hydrocortisone (Anusol-Hc) 1 applic CO BID [facility] Last Admin: 12/14/16 17:43 Dose: 1 applic Hydromorphone HCl (Dilaudid) 4 mg IVP Q4H [facility] Last Admin: 12/15/16 05:02 Dose: 4 mg Ondansetron HCl (Zofran Inj) 4 mg IVP Q4 PRN PRN Reason: Nausea/Vomiting Last Admin: 12/11/16 08:42 Dose: 4 mg Sennosides (Senokot Tab) 17.2 mg PO HS [facility] Last Admin: 12/14/16 21:09 Dose: 17.2 mg - Labs Labs: 12/15/16 09:00 12/13/16 07:00 PT 14.0 Seconds (9.8-13.1) H 11/26/16 22:19 INR 1.2 (0.9-1.2) 11/26/16 22:19 APTT 33.7 Seconds (25.6-37.1) 11/26/16 22:19
[2016-12-15 10:36] LABS: ALB/GLOB RATIO 1.4 (1.0-2.1); BILIRUBIN,TOTAL 0.2 mg/dl (0.2-1.3); CALCIUM 7.6 mg/dL (8.4-10.2); TOTAL PROTEIN 6.6 G/DL (6.3-8.2)
[2016-12-15 10:38] LABS: POTASSIUM 5.3 MMOL/L (3.6-5.0)
[2016-12-15] MEDS ORDERED: Sod Polystyrene Sulf 15 gm/60 ml Susp PO ONE (10:52)
--- NOTE | 2016-12-15 10:52 | CP.PCM.PN ---
Subjective - Date & Time of Evaluation Date of Evaluation: 12/15/16 Time of Evaluation: 10:50 - Subjective Subjective: Patient and bed No acute distress Appetite somewhat poor Objective - Vital Signs/Intake and Output Vital Signs (last 24 hours): Temp Pulse Resp BP Pulse Ox 98.2 F 88 20 144/84 99 12/15/16 08:43 12/15/16 08:43 12/15/16 08:43 12/15/16 08:43 12/15/16 08:43 - Medications Medications: Current Medications Albuterol/Ipratropium (Duoneb 3 Mg/0.5 Mg (3 Ml) Ud) 3 ml INH RTID [facility] Last Admin: 12/15/16 07:26 Dose: Not Given Alprazolam (Xanax) 0.5 mg PO TID PRN PRN Reason: Anxiety Last Admin: 12/14/16 10:40 Dose: 0.5 mg Alprazolam (Xanax) 1 mg PO TID [facility] Last Admin: 12/14/16 17:37 Dose: 1 mg Calcitriol (Rocaltrol) 0.25 mcg PO DAILY [facility] Last Admin: 12/14/16 10:46 Dose: 0.25 mcg Calcium Carbonate (Oscal) 500 mg PO BID [facility] Last Admin: 12/14/16 17:47 Dose: 500 mg Dexamethasone (Decadron) 6 mg PO Q12 [facility] Last Admin: 12/14/16 21:09 Dose: 6 mg Docusate Sodium (Colace) 200 mg PO DAILY [facility] Last Admin: 12/14/16 10:46 Dose: 200 mg Famotidine (Pepcid) 20 mg PO DAILY [facility] Last Admin: 12/14/16 10:47 Dose: 20 mg Hamamelis (Tucks) 1 pad TP Q2 PRN PRN Reason: Hemorrhoids Last Admin: 12/13/16 05:48 Dose: 1 pad Hydrocortisone (Anusol-Hc) 1 applic [place] BID [facility] Last Admin: 12/14/16 17:43 Dose: 1 applic Hydromorphone HCl (Dilaudid) 4 mg IVP Q4H [facility] Last Admin: 12/15/16 05:02 Dose: 4 mg Ondansetron HCl (Zofran Inj) 4 mg IVP Q4 PRN PRN Reason: Nausea/Vomiting Last Admin: 12/11/16 08:42 Dose: 4 mg Sennosides (Senokot Tab) 17.2 mg PO HS [facility] Last Admin: 12/14/16 21:09 Dose: 17.2 mg - Labs Labs: 12/15/16 09:00 12/15/16 09:00 PT 14.0 Seconds (9.8-13.1) H 11/26/16 22:19 INR 1.2 (0.9-1.2) 11/26/16 22:19 APTT 33.7 Seconds (25.6-37.1) 11/26/16 22:19 - Constitutional Appears: No Acute Distress - ENT Exam ENT Exam: Mucous Membranes Moist - Respiratory Exam Respiratory Exam: NORMAL BREATHING PATTERN. absent: Chest Wall Tenderness - GI/Abdominal Exam GI & Abdominal Exam: Soft, Normal Bowel Sounds - Extremities Exam Extremities Exam: absent: Calf Tenderness - Back Exam Back Exam: absent: CVA tenderness (L), CVA tenderness (R) Assessment and Plan (1) Stage 4 lung cancer Status: Acute (2) GORDY (acute kidney injury) Assessment & Plan: Acute kidney injury serum creatinine is still about the same more or less slightly higher today Serum potassium going up 5.3 we will give stat Kayexalate Hypocalcemia appeared to be improving patient is still receiving calcitriol Continue gentle hydration Status: Acute
[2016-12-15] MEDS: Anusol Suppository PR PRN (11:20)
[2016-12-15] MEDS: Hydrocortisone 2.5% (Rectal) CREAM PR SCH ×2 (11:21→17:01)
--- NOTE | 2016-12-15 11:52 | CP.PCM.PN ---
Subjective - Date & Time of Evaluation Date of Evaluation: 12/15/16 Time of Evaluation: 11:52 - Subjective Subjective: Pt's wbc count improved to 21. His platelets were 35K. He was scheduled for the RT today , but he claims he is too dizzy to go. I was not able to convince him that the treatment is necessary. Objective - Vital Signs/Intake and Output Vital Signs (last 24 hours): Temp Pulse Resp BP Pulse Ox 98.2 F 88 20 144/84 99 12/15/16 08:43 12/15/16 08:43 12/15/16 08:43 12/15/16 08:43 12/15/16 08:43 - Medications Medications: Current Medications Albuterol/Ipratropium (Duoneb 3 Mg/0.5 Mg (3 Ml) Ud) 3 ml INH RTID [facility] Last Admin: 12/15/16 07:26 Dose: Not Given Alprazolam (Xanax) 0.5 mg PO TID PRN PRN Reason: Anxiety Last Admin: 12/14/16 10:40 Dose: 0.5 mg Alprazolam (Xanax) 1 mg PO TID [facility] Last Admin: 12/15/16 11:10 Dose: 1 mg Calcitriol (Rocaltrol) 0.25 mcg PO DAILY [facility] Last Admin: 12/15/16 11:18 Dose: 0.25 mcg Calcium Carbonate (Oscal) 500 mg PO BID [facility] Last Admin: 12/15/16 11:20 Dose: 500 mg Dexamethasone (Decadron) 6 mg PO Q12 [facility] Last Admin: 12/15/16 11:19 Dose: 6 mg Docusate Sodium (Colace) 200 mg PO DAILY [facility] Last Admin: 12/15/16 11:18 Dose: 200 mg Famotidine (Pepcid) 20 mg PO DAILY [facility] Last Admin: 12/15/16 11:21 Dose: 20 mg Hamamelis (Tucks) 1 pad TP Q2 PRN PRN Reason: Hemorrhoids Last Admin: 12/13/16 05:48 Dose: 1 pad Hydrocortisone (Anusol-Hc) 1 applic [place] BID [facility] Last Admin: 12/15/16 11:21 Dose: 1 applic Hydromorphone HCl (Dilaudid) 4 mg IVP Q4H [facility] Last Admin: 12/15/16 11:10 Dose: 4 mg Dextrose/Sodium Chloride (Dextrose 5%-0.45% Ns 500 Ml) 1,000 mls @ 75 mls/hr IV .[id number] [facility] Stop: 12/16/16 11:35 Ondansetron HCl (Zofran Inj) 4 mg IVP Q4 PRN PRN Reason: Nausea/Vomiting Last Admin: 12/11/16 08:42 Dose: 4 mg Sennosides (Senokot Tab) 17.2 mg PO HS [facility] Last Admin: 12/14/16 21:09 Dose: 17.2 mg - Labs Labs: 12/15/16 09:00 12/15/16 09:00 PT 14.0 Seconds (9.8-13.1) H 11/26/16 22:19 INR 1.2 (0.9-1.2) 11/26/16 22:19 APTT 33.7 Seconds (25.6-37.1) 11/26/16 22:19
--- NOTE | 2016-12-15 20:55 | CP.PCM.PN ---
Subjective - Date & Time of Evaluation Date of Evaluation: 12/15/16 Time of Evaluation: 13:00 - Subjective Subjective: F/U Chest wall pain, TMJ pain. Pt c/o of numbness and pain in the chin bone area, no cough, no SOB, no chest pain. Objective - Vital Signs/Intake and Output Vital Signs (last 24 hours): Temp Pulse Resp BP Pulse Ox 97.6 F 83 20 129/82 98 12/15/16 16:04 12/15/16 16:04 12/15/16 16:04 12/15/16 16:04 12/15/16 16:04 - Medications Medications: Current Medications Albuterol/Ipratropium (Duoneb 3 Mg/0.5 Mg (3 Ml) Ud) 3 ml INH RTID [facility] Last Admin: 12/15/16 19:20 Dose: Not Given Alprazolam (Xanax) 0.5 mg PO TID PRN PRN Reason: Anxiety Last Admin: 12/15/16 14:15 Dose: 0.5 mg Alprazolam (Xanax) 1 mg PO TID [facility] Last Admin: 12/15/16 17:00 Dose: 1 mg Calcitriol (Rocaltrol) 0.25 mcg PO DAILY [facility] Last Admin: 12/15/16 11:18 Dose: 0.25 mcg Calcium Carbonate (Oscal) 500 mg PO BID [facility] Last Admin: 12/15/16 17:01 Dose: 500 mg Dexamethasone (Decadron) 6 mg PO Q12 [facility] Last Admin: 12/15/16 11:19 Dose: 6 mg Docusate Sodium (Colace) 200 mg PO DAILY [facility] Last Admin: 12/15/16 11:18 Dose: 200 mg Famotidine (Pepcid) 20 mg PO DAILY [facility] Last Admin: 12/15/16 11:21 Dose: 20 mg Hamamelis (Tucks) 1 pad TP Q2 PRN PRN Reason: Hemorrhoids Last Admin: 12/13/16 05:48 Dose: 1 pad Hydrocortisone (Anusol-Hc) 1 applic [place] BID [facility] Last Admin: 12/15/16 17:01 Dose: 1 applic Hydromorphone HCl (Dilaudid) 4 mg IVP Q4H [facility] Last Admin: 12/15/16 19:51 Dose: 4 mg Dextrose/Sodium Chloride (Dextrose 5%-0.45% Ns 500 Ml) 1,000 mls @ 75 mls/hr IV .[id number] [facility] Stop: 12/16/16 11:35 Last Admin: 12/15/16 13:38 Dose: 75 mls/hr Methadone HCl (Methadone) 10 mg PO Q4 [facility] Last Admin: 12/15/16 17:00 Dose: 10 mg Ondansetron HCl (Zofran Inj) 4 mg IVP Q4 PRN PRN Reason: Nausea/Vomiting Last Admin: 12/11/16 08:42 Dose: 4 mg Sennosides (Senokot Tab) 17.2 mg PO HS [facility] Last Admin: 12/14/16 21:09 Dose: 17.2 mg - Labs Labs: 12/15/16 09:00 12/15/16 09:00 PT 14.0 Seconds (9.8-13.1) H 11/26/16 22:19 INR 1.2 (0.9-1.2) 11/26/16 22:19 APTT 33.7 Seconds (25.6-37.1) 11/26/16 22:19 - Constitutional Appears: No Acute Distress, Chronically Ill - Head Exam Head Exam: NORMAL INSPECTION - Eye Exam Eye Exam: PERRL - ENT Exam Additional comments: Numbness Chin bone area - Neck Exam Neck Exam: Normal Inspection - Respiratory Exam Respiratory Exam: Clear to Ausculation Bilateral Additional comments: No tenderness on palpation R hemithorax. - Cardiovascular Exam Cardiovascular Exam: REGULAR RHYTHM - GI/Abdominal Exam GI & Abdominal Exam: Soft, Normal Bowel Sounds - Extremities Exam Extremities Exam: Normal Inspection - Back Exam Back Exam: tenderness (mild) - Neurological Exam Neurological Exam: Alert, Oriented x3 Additional comments: No focal motor/sensory deficit. - Psychiatric Exam Psychiatric exam: Anxious, Depressed - Skin Skin Exam: Warm Assessment and Plan (1) Chest wall pain, chronic Status: Acute (2) Temporomandibular joint (TMJ) pain Status: Acute (3) Maxillary pain Status: Acute (4) Mandible pain Status: Acute (5) Malignant neoplasm metastatic to liver Status: Acute (6) Stage 4 lung cancer Status: Acute (7) GORDY (acute kidney injury) Status: Acute (8) Brain metastasis Status: Acute (9) Anxiety Status: Chronic (10) Change in mental status Status: Acute (11) Leukopenia Status: Acute (12) Pancytopenia Status: Acute (13) Constipation Status: Acute - Assessment and Plan (Free Text) Plan: WBC increased to 12.1, Pt refused RT, discussed with Pt and agree to go tomorrow to RT. Continue current Tx.
[2016-12-16 06:34] LABS: HEMATOCRIT 28.5 % (35.0-51.0); MEAN CELL VOLUME 81.6 fl (80.0-94.0); MEAN CORPUSCULAR HEMOGLOBIN 26.9 pg (27.0-31.0)
[2016-12-16] MEDS: Albuterol-Ipratrop 3 mg / 0.5 (3 ml) UD INH SCH ×3 (07:08→19:13)
[2016-12-16 07:21] LABS: CALCIUM 7.5 mg/dL (8.4-10.2)
[2016-12-16 07:25] LABS: POTASSIUM 5.2 MMOL/L (3.6-5.0)
[2016-12-16] MEDS: Hydrocortisone 2.5% (Rectal) CREAM PR SCH ×2 (08:28→16:02)
[2016-12-16] MEDS ORDERED: Sod Polystyrene Sulf 15 gm/60 ml Susp PO ONE (09:53)
--- NOTE | 2016-12-16 11:23 | CP.PCM.PN ---
Subjective - Date & Time of Evaluation Date of Evaluation: 12/16/16 Time of Evaluation: 11:21 - Subjective Subjective: Patient awake and conscious stated that the has reasonable appetite No nausea or vomiting Objective - Vital Signs/Intake and Output Vital Signs (last 24 hours): Temp Pulse Resp BP Pulse Ox 97.9 F 77 18 123/80 100 12/16/16 08:30 12/16/16 08:30 12/16/16 08:30 12/16/16 08:30 12/16/16 08:30 - Medications Medications: Current Medications Albuterol/Ipratropium (Duoneb 3 Mg/0.5 Mg (3 Ml) Ud) 3 ml INH RTID [facility] Last Admin: 12/16/16 07:08 Dose: Not Given Alprazolam (Xanax) 0.5 mg PO TID PRN PRN Reason: Anxiety Last Admin: 12/15/16 14:15 Dose: 0.5 mg Alprazolam (Xanax) 1 mg PO TID [facility] Last Admin: 12/16/16 09:36 Dose: 1 mg Calcitriol (Rocaltrol) 0.25 mcg PO DAILY [facility] Last Admin: 12/16/16 08:29 Dose: 0.25 mcg Calcium Carbonate (Oscal) 500 mg PO BID [facility] Last Admin: 12/16/16 08:31 Dose: 500 mg Dexamethasone (Decadron) 6 mg PO Q12 [facility] Last Admin: 12/16/16 08:29 Dose: 6 mg Docusate Sodium (Colace) 200 mg PO DAILY [facility] Last Admin: 12/16/16 08:29 Dose: 200 mg Famotidine (Pepcid) 20 mg PO DAILY [facility] Last Admin: 12/16/16 08:29 Dose: 20 mg Hamamelis (Tucks) 1 pad TP Q2 PRN PRN Reason: Hemorrhoids Last Admin: 12/13/16 05:48 Dose: 1 pad Hydrocortisone (Anusol-Hc) 1 applic [place] BID [facility] Last Admin: 12/16/16 08:28 Dose: 1 applic Hydromorphone HCl (Dilaudid) 4 mg IVP Q4H [facility] Last Admin: 12/16/16 09:36 Dose: 4 mg Dextrose/Sodium Chloride (Dextrose 5%-0.45% Ns 500 Ml) 1,000 mls @ 75 mls/hr IV .[id number] [facility] Stop: 12/16/16 11:35 Last Admin: 12/16/16 01:13 Dose: Not Given Methadone HCl (Methadone) 10 mg PO Q4 [facility] Last Admin: 12/16/16 09:36 Dose: 10 mg Ondansetron HCl (Zofran Inj) 4 mg IVP Q4 PRN PRN Reason: Nausea/Vomiting Last Admin: 12/11/16 08:42 Dose: 4 mg Sennosides (Senokot Tab) 17.2 mg PO HS [facility] Last Admin: 12/15/16 22:24 Dose: 17.2 mg - Labs Labs: 12/16/16 05:50 12/16/16 05:50 PT 14.0 Seconds (9.8-13.1) H 11/26/16 22:19 INR 1.2 (0.9-1.2) 11/26/16 22:19 APTT 33.7 Seconds (25.6-37.1) 11/26/16 22:19 - Constitutional Appears: No Acute Distress - ENT Exam ENT Exam: Mucous Membranes Moist - Respiratory Exam Respiratory Exam: absent: Chest Wall Tenderness - Cardiovascular Exam Cardiovascular Exam: absent: JVD, Rubs - GI/Abdominal Exam GI & Abdominal Exam: Soft, Normal Bowel Sounds - Extremities Exam Extremities Exam: absent: Calf Tenderness - Back Exam Back Exam: absent: CVA tenderness (L), CVA tenderness (R) - Neurological Exam Neurological Exam: Alert - Psychiatric Exam Psychiatric exam: Normal Affect Assessment and Plan (1) Stage 4 lung cancer Status: Acute (2) GORDY (acute kidney injury) Assessment & Plan: Serum creatinine came down 2.5 with acute kidney injury appeared to be improving very slowly. #2 hyperkalemia to give Kayexalate stat dose now #3 hyponatremia likely related to SIADH? I ordered stat Spot urine for sodium and osmolality Suggest to do fluid restriction Status: Acute
--- NOTE | 2016-12-16 13:31 | CP.PCM.PN ---
Subjective - Date & Time of Evaluation Date of Evaluation: 12/16/16 (n) Time of Evaluation: 13:26 - Subjective Subjective: `Pt was in a much better frame of mind today. He had no dizziness. aad he went to [facility] for radiation therapy. CBC stable. Objective - Vital Signs/Intake and Output Vital Signs (last 24 hours): Temp Pulse Resp BP Pulse Ox 97.9 F 77 18 123/80 100 12/16/16 08:30 12/16/16 08:30 12/16/16 08:30 12/16/16 08:30 12/16/16 08:30 - Medications Medications: Current Medications Albuterol/Ipratropium (Duoneb 3 Mg/0.5 Mg (3 Ml) Ud) 3 ml INH RTID [facility] Last Admin: 12/16/16 07:08 Dose: Not Given Alprazolam (Xanax) 0.5 mg PO TID PRN PRN Reason: Anxiety Last Admin: 12/15/16 14:15 Dose: 0.5 mg Alprazolam (Xanax) 1 mg PO TID [facility] Last Admin: 12/16/16 13:12 Dose: 1 mg Calcitriol (Rocaltrol) 0.25 mcg PO DAILY [facility] Last Admin: 12/16/16 08:29 Dose: 0.25 mcg Calcium Carbonate (Oscal) 500 mg PO BID [facility] Last Admin: 12/16/16 08:31 Dose: 500 mg Dexamethasone (Decadron) 6 mg PO Q12 [facility] Last Admin: 12/16/16 08:29 Dose: 6 mg Docusate Sodium (Colace) 200 mg PO DAILY [facility] Last Admin: 12/16/16 08:29 Dose: 200 mg Famotidine (Pepcid) 20 mg PO DAILY [facility] Last Admin: 12/16/16 08:29 Dose: 20 mg Hamamelis (Tucks) 1 pad TP Q2 PRN PRN Reason: Hemorrhoids Last Admin: 12/13/16 05:48 Dose: 1 pad Hydrocortisone (Anusol-Hc) [address] BID [facility] Last Admin: 12/16/16 08:28 Dose: 1 applic Hydromorphone HCl (Dilaudid) 4 mg IVP Q4H [facility] Last Admin: 12/16/16 13:11 Dose: 4 mg Methadone HCl (Methadone) 10 mg PO Q4 [facility] Last Admin: 10/31/17 13:12 Dose: 10 mg Ondansetron HCl (Zofran Inj) 4 mg IVP Q4 PRN PRN Reason: Nausea/Vomiting Last Admin: 12/11/16 08:42 Dose: 4 mg Sennosides (Senokot Tab) 17.2 mg PO HS [facility] Last Admin: 12/15/16 22:24 Dose: 17.2 mg - Labs Labs: 12/16/16 05:50 12/16/16 05:50 PT 14.0 Seconds (9.8-13.1) H 11/26/16 22:19 INR 1.2 (0.9-1.2) 11/26/16 22:19 APTT 33.7 Seconds (25.6-37.1) 11/26/16 22:19
[2016-12-16] MEDS: Dextrose 5%/0.9% NS 1,000 ML IV SCH (16:09)
[2016-12-17] MEDS: Dextrose 5%/0.9% NS 1,000 ML IV SCH (04:42)
[2016-12-17 06:42] LABS: HEMATOCRIT 26.2 % (35.0-51.0); MEAN CORPUSCULAR HEMOGLOBIN 27.5 pg (27.0-31.0); RED CELL DISTRIBUTION WIDTH 17.9 % (11.5-14.5); WHITE BLOOD COUNT 14.4 K/uL (4.8-10.8)
[2016-12-17 07:07] LABS: ALB/GLOB RATIO 1.4 (1.0-2.1); ALKALINE PHOSPHATASE 80 U/L (38-126); ALT/SGPT 23 U/L (21-72); AST/SGOT 19 U/L (17-59); BILIRUBIN,TOTAL < 0.1 mg/dl (0.2-1.3); BLOOD UREA NITROGEN 61 mg/dl (9-20); CALCIUM 6.9 mg/dL (8.4-10.2); CARBON DIOXIDE 25 mmol/L (22-30); CHLORIDE 98 mmol/L (98-107); GFR AFRICAN-AMERICAN 36; GLUCOSE,RANDOM 122 mg/dL (75-110); SODIUM 134 mmol/l (132-148); TOTAL PROTEIN 5.9 G/DL (6.3-8.2)
[2016-12-17 07:30] LABS: POTASSIUM 5.2 MMOL/L (3.6-5.0)
[2016-12-17] MEDS: Albuterol-Ipratrop 3 mg / 0.5 (3 ml) UD INH SCH ×3 (07:49→19:20)
[2016-12-17] MEDS: Hydrocortisone 2.5% (Rectal) CREAM PR SCH ×2 (09:15→16:11)
[2016-12-17] MEDS ORDERED: Sod Polystyrene Sulf 15 gm/60 ml Susp PO ONE (10:06)
--- NOTE | 2016-12-17 11:07 | CP.PCM.PN ---
Subjective - Date & Time of Evaluation Date of Evaluation: 12/17/16 Time of Evaluation: 11:06 - Subjective Subjective: Patient reported to do much better Vital sign noted to be stable Lab reviewed Serum sodium came up to 134 Serum creatinine trending down Potassium is still high 5.2 To give additional Kayexalate 15 g Impression and plan Recovering from acute kidney injury slightly improving Hyperkalemia Hyponatremia improving Objective - Vital Signs/Intake and Output Vital Signs (last 24 hours): Temp Pulse Resp BP Pulse Ox 97.9 F 78 20 116/78 100 12/17/16 08:24 12/17/16 08:24 12/17/16 08:24 12/17/16 08:24 12/17/16 08:24 - Medications Medications: Current Medications Albuterol/Ipratropium (Duoneb 3 Mg/0.5 Mg (3 Ml) Ud) 3 ml INH RTID [facility] Last Admin: 12/17/16 07:49 Dose: Not Given Alprazolam (Xanax) 0.5 mg PO TID PRN PRN Reason: Anxiety Last Admin: 12/17/16 04:41 Dose: 0.5 mg Alprazolam (Xanax) 1 mg PO TID [facility] Last Admin: 12/17/16 09:14 Dose: 1 mg Calcitriol (Rocaltrol) 0.25 mcg PO DAILY [facility] Last Admin: 12/17/16 09:15 Dose: 0.25 mcg Calcium Carbonate (Oscal) 500 mg PO BID [facility] Last Admin: 12/17/16 09:16 Dose: 500 mg Dexamethasone (Decadron) 6 mg PO Q12 [facility] Last Admin: 12/17/16 09:16 Dose: 6 mg Docusate Sodium (Colace) 200 mg PO DAILY [facility] Last Admin: 12/17/16 09:17 Dose: 200 mg Famotidine (Pepcid) 20 mg PO DAILY [facility] Last Admin: 12/17/16 09:16 Dose: 20 mg Hamamelis (Tucks) 1 pad TP Q2 PRN PRN Reason: Hemorrhoids Last Admin: 12/13/16 05:48 Dose: 1 pad Hydrocortisone (Anusol-Hc) 1 applic [place] BID [facility] Last Admin: 12/17/16 09:15 Dose: 1 applic Hydromorphone HCl (Dilaudid) 4 mg IVP Q4H [facility] Last Admin: 12/17/16 09:14 Dose: 4 mg Dextrose/Sodium Chloride (Dextrose 5%/0.9% Ns 1000 Ml) 1,000 mls @ 75 mls/hr IV .[id number] [facility] Stop: 12/17/16 14:57 Last Admin: 12/17/16 04:42 Dose: Not Given Methadone HCl (Methadone) 10 mg PO Q4 [facility] Last Admin: 12/17/16 09:14 Dose: 10 mg Ondansetron HCl (Zofran Inj) 4 mg IVP Q4 PRN PRN Reason: Nausea/Vomiting Last Admin: 12/11/16 08:42 Dose: 4 mg Sennosides (Senokot Tab) 17.2 mg PO HS [facility] Last Admin: 12/16/16 21:04 Dose: 17.2 mg - Labs Labs: 12/17/16 05:20 12/17/16 05:20 PT 14.0 Seconds (9.8-13.1) H 11/26/16 22:19 INR 1.2 (0.9-1.2) 11/26/16 22:19 APTT 33.7 Seconds (25.6-37.1) 11/26/16 22:19 Assessment and Plan (1) Stage 4 lung cancer Status: Acute (2) GORDY (acute kidney injury) Status: Acute
--- NOTE | 2016-12-17 12:11 | CP.PCM.PN ---
Subjective - Date & Time of Evaluation Date of Evaluation: 12/17/16 Time of Evaluation: 12:00 - Subjective Subjective: F/U Chest wall pain, TMJ pain. Objective - Vital Signs/Intake and Output Vital Signs (last 24 hours): Temp Pulse Resp BP Pulse Ox 97.9 F 78 20 116/78 100 12/17/16 08:24 12/17/16 08:24 12/17/16 08:24 12/17/16 08:24 12/17/16 08:24 - Medications Medications: Current Medications Albuterol/Ipratropium (Duoneb 3 Mg/0.5 Mg (3 Ml) Ud) 3 ml INH RTID [facility] Last Admin: 12/17/16 07:49 Dose: Not Given Alprazolam (Xanax) 0.5 mg PO TID PRN PRN Reason: Anxiety Last Admin: 12/17/16 04:41 Dose: 0.5 mg Alprazolam (Xanax) 1 mg PO TID [facility] Last Admin: 12/17/16 09:14 Dose: 1 mg Calcitriol (Rocaltrol) 0.25 mcg PO DAILY [facility] Last Admin: 12/17/16 09:15 Dose: 0.25 mcg Calcium Carbonate (Oscal) 500 mg PO BID [facility] Last Admin: 12/17/16 09:16 Dose: 500 mg Dexamethasone (Decadron) 6 mg PO Q12 [facility] Last Admin: 12/17/16 09:16 Dose: 6 mg Docusate Sodium (Colace) 200 mg PO DAILY [facility] Last Admin: 12/17/16 09:17 Dose: 200 mg Famotidine (Pepcid) 20 mg PO DAILY [facility] Last Admin: 12/17/16 09:16 Dose: 20 mg Hamamelis (Tucks) 1 pad TP Q2 PRN PRN Reason: Hemorrhoids Last Admin: 12/13/16 05:48 Dose: 1 pad Hydrocortisone (Anusol-Hc) 1 applic [place] BID [facility] Last Admin: 12/17/16 09:15 Dose: 1 applic Hydromorphone HCl (Dilaudid) 4 mg IVP Q4H [facility] Last Admin: 12/17/16 09:14 Dose: 4 mg Dextrose/Sodium Chloride (Dextrose 5%/0.9% Ns 1000 Ml) 1,000 mls @ 75 mls/hr IV .[id number] [facility] Stop: 12/17/16 14:57 Last Admin: 12/17/16 04:42 Dose: Not Given Methadone HCl (Methadone) 10 mg PO Q4 [facility] Last Admin: 12/17/16 09:14 Dose: 10 mg Ondansetron HCl (Zofran Inj) 4 mg IVP Q4 PRN PRN Reason: Nausea/Vomiting Last Admin: 12/11/16 08:42 Dose: 4 mg Sennosides (Senokot Tab) 17.2 mg PO HS [facility] Last Admin: 12/16/16 21:04 Dose: 17.2 mg - Labs Labs: 12/17/16 05:20 12/17/16 05:20 PT 14.0 Seconds (9.8-13.1) H 11/26/16 22:19 INR 1.2 (0.9-1.2) 11/26/16 22:19 APTT 33.7 Seconds (25.6-37.1) 11/26/16 22:19 - Constitutional Appears: No Acute Distress, Chronically Ill - Head Exam Head Exam: NORMAL INSPECTION - Eye Exam Eye Exam: PERRL - ENT Exam Additional comments: Numbness chin bone area - Neck Exam Neck Exam: Normal Inspection - Respiratory Exam Respiratory Exam: Clear to Ausculation Bilateral - Cardiovascular Exam Cardiovascular Exam: REGULAR RHYTHM - GI/Abdominal Exam GI & Abdominal Exam: Soft, Normal Bowel Sounds - Extremities Exam Extremities Exam: Normal Inspection - Back Exam Back Exam: tenderness (mild) - Neurological Exam Neurological Exam: Alert, Oriented x3 Additional comments: No focal motor/sensory deficit. - Psychiatric Exam Psychiatric exam: Anxious, Depressed - Skin Skin Exam: Normal Color, Warm Assessment and Plan (1) Chest wall pain, chronic Status: Acute (2) Temporomandibular joint (TMJ) pain Status: Acute (3) Maxillary pain Status: Acute (4) Mandible pain Status: Acute (5) Malignant neoplasm metastatic to liver Status: Acute (6) Stage 4 lung cancer Status: Acute (7) GORDY (acute kidney injury) Status: Acute (8) Brain metastasis Status: Acute (9) Anxiety Status: Chronic (10) Change in mental status Status: Acute (11) Leukopenia Status: Acute (12) Pancytopenia Status: Acute (13) Constipation Status: Acute
--- NOTE | 2016-12-17 12:37 | CP.PCM.PN ---
Subjective - Date & Time of Evaluation Date of Evaluation: 12/17/16 Time of Evaluation: 12:30 - Subjective Subjective: Pt is again in a foul mood. He sometimes says he wants to go home and sometimes wants to stay here to finish his RT. His vital signs are normal, cbc is improving with manual platelet count of 60K. Will continue the RT. Objective - Vital Signs/Intake and Output Vital Signs (last 24 hours): Temp Pulse Resp BP Pulse Ox 97.9 F 78 20 116/78 100 12/17/16 08:24 12/17/16 08:24 12/17/16 08:24 12/17/16 08:24 12/17/16 08:24 - Medications Medications: Current Medications Albuterol/Ipratropium (Duoneb 3 Mg/0.5 Mg (3 Ml) Ud) 3 ml INH RTID [facility] Last Admin: 12/17/16 07:49 Dose: Not Given Alprazolam (Xanax) 0.5 mg PO TID PRN PRN Reason: Anxiety Last Admin: 12/17/16 04:41 Dose: 0.5 mg Alprazolam (Xanax) 1 mg PO TID [facility] Last Admin: 12/17/16 12:26 Dose: 1 mg Calcitriol (Rocaltrol) 0.25 mcg PO DAILY [facility] Last Admin: 12/17/16 09:15 Dose: 0.25 mcg Calcium Carbonate (Oscal) 500 mg PO BID [facility] Last Admin: 12/17/16 09:16 Dose: 500 mg Dexamethasone (Decadron) 6 mg PO Q12 [facility] Last Admin: 12/17/16 09:16 Dose: 6 mg Docusate Sodium (Colace) 200 mg PO DAILY [facility] Last Admin: 12/17/16 09:17 Dose: 200 mg Famotidine (Pepcid) 20 mg PO DAILY [facility] Last Admin: 12/17/16 09:16 Dose: 20 mg Hamamelis (Tucks) 1 pad TP Q2 PRN PRN Reason: Hemorrhoids Last Admin: 12/13/16 05:48 Dose: 1 pad Hydrocortisone (Anusol-Hc) 1 applic [place] BID [facility] Last Admin: 12/17/16 09:15 Dose: 1 applic Hydromorphone HCl (Dilaudid) 4 mg IVP Q4H [facility] Last Admin: 12/17/16 12:26 Dose: 4 mg Dextrose/Sodium Chloride (Dextrose 5%/0.9% Ns 1000 Ml) 1,000 mls @ 75 mls/hr IV .[id number] [facility] Stop: 12/17/16 14:57 Last Admin: 12/17/16 04:42 Dose: Not Given Methadone HCl (Methadone) 10 mg PO Q4 [facility] Last Admin: 12/17/16 12:26 Dose: 10 mg Ondansetron HCl (Zofran Inj) 4 mg IVP Q4 PRN PRN Reason: Nausea/Vomiting Last Admin: 12/11/16 08:42 Dose: 4 mg Sennosides (Senokot Tab) 17.2 mg PO HS [facility] Last Admin: 12/16/16 21:04 Dose: 17.2 mg - Labs Labs: 12/17/16 05:20 12/17/16 05:20 PT 14.0 Seconds (9.8-13.1) H 11/26/16 22:19 INR 1.2 (0.9-1.2) 11/26/16 22:19 APTT 33.7 Seconds (25.6-37.1) 11/26/16 22:19
[2016-12-18 00:50] VITALS: O2SAT 99
[2016-12-18 06:55] LABS: HEMATOCRIT 26.7 % (35.0-51.0); MEAN CELL VOLUME 83.5 fl (80.0-94.0); MEAN CORPUSCULAR HEMOGLOBIN 26.2 pg (27.0-31.0); MEAN CORPUSCULAR HGB CONC 31.4 g/dL (33.0-37.0); RED CELL DISTRIBUTION WIDTH 18.6 % (11.5-14.5); WHITE BLOOD COUNT 14.2 K/uL (4.8-10.8)
[2016-12-18 07:10] LABS: CALCIUM 6.9 mg/dL (8.4-10.2)
[2016-12-18 07:40] VITALS: BP 129/80; PULSE 85; RESP 20; TEMP 97.7
[2016-12-18] MEDS: Albuterol-Ipratrop 3 mg / 0.5 (3 ml) UD INH SCH (07:50)
--- NOTE | 2016-12-18 09:28 | CP.PCM.PN ---
Subjective - Date & Time of Evaluation Date of Evaluation: 12/18/16 Time of Evaluation: 09:27 - Subjective Subjective: No significant changes reported No vomiting physical exam Chest no wheezing Heart no rubs Lele soft Extremity no edema Impression and plan Acute kidney injury continued to improve serum creatinine coming down very slowly. Hyperkalemia corrected today Hyponatremia corrected Continue monitoring Objective - Vital Signs/Intake and Output Vital Signs (last 24 hours): Temp Pulse Resp BP Pulse Ox 97.7 F 85 20 129/80 99 12/18/16 07:39 12/18/16 07:39 12/18/16 07:39 12/18/16 07:39 12/18/16 07:39 - Medications Medications: Current Medications Albuterol/Ipratropium (Duoneb 3 Mg/0.5 Mg (3 Ml) Ud) 3 ml INH RTID [facility] Last Admin: 12/18/16 07:50 Dose: Not Given Alprazolam (Xanax) 0.5 mg PO TID PRN PRN Reason: Anxiety Last Admin: 12/18/16 04:26 Dose: 0.5 mg Alprazolam (Xanax) 1 mg PO TID [facility] Last Admin: 12/17/16 16:07 Dose: 1 mg Calcitriol (Rocaltrol) 0.25 mcg PO DAILY [facility] Last Admin: 12/17/16 09:15 Dose: 0.25 mcg Calcium Carbonate (Oscal) 500 mg PO BID [facility] Last Admin: 12/17/16 16:08 Dose: 500 mg Dexamethasone (Decadron) 6 mg PO Q12 [facility] Last Admin: 12/17/16 20:34 Dose: 6 mg Docusate Sodium (Colace) 200 mg PO DAILY [facility] Last Admin: 12/17/16 09:17 Dose: 200 mg Famotidine (Pepcid) 20 mg PO DAILY [facility] Last Admin: 12/17/16 09:16 Dose: 20 mg Hamamelis (Tucks) 1 pad TP Q2 PRN PRN Reason: Hemorrhoids Last Admin: 12/13/16 05:48 Dose: 1 pad Hydrocortisone (Anusol-Hc) 1 applic PA BID [facility] Last Admin: 12/17/16 16:11 Dose: 1 applic Hydromorphone HCl (Dilaudid) 4 mg IVP Q4H [facility] Last Admin: 12/18/16 04:25 Dose: 4 mg Methadone HCl (Methadone) 10 mg PO Q4 [facility] Last Admin: 12/18/16 04:26 Dose: 10 mg Ondansetron HCl (Zofran Inj) 4 mg IVP Q4 PRN PRN Reason: Nausea/Vomiting Last Admin: 12/11/16 08:42 Dose: 4 mg Sennosides (Senokot Tab) 17.2 mg PO HS [facility] Last Admin: 12/17/16 22:24 Dose: 17.2 mg - Labs Labs: 12/18/16 05:30 12/18/16 05:30 PT 14.0 Seconds (9.8-13.1) H 11/26/16 22:19 INR 1.2 (0.9-1.2) 11/26/16 22:19 APTT 33.7 Seconds (25.6-37.1) 11/26/16 22:19 Assessment and Plan (1) Stage 4 lung cancer Status: Acute (2) GORDY (acute kidney injury) Status: Acute
[2016-12-18] MEDS: Hydrocortisone 2.5% (Rectal) CREAM PR SCH ×2 (09:46→16:16)
--- NOTE | 2016-12-18 11:24 | CP.PCM.PN ---
Subjective - Date & Time of Evaluation Date of Evaluation: 12/18/16 Time of Evaluation: 11:22 - Subjective Subjective: Pt is continuing his RT. He will continue his Chemotherapy after he finishes the RT CBC is stable at this time. He will be going home and continue the RT from home. Objective - Vital Signs/Intake and Output Vital Signs (last 24 hours): Temp Pulse Resp BP Pulse Ox 97.7 F 85 20 129/80 99 12/18/16 07:39 12/18/16 07:39 12/18/16 07:39 12/18/16 07:39 12/18/16 07:39 - Medications Medications: Current Medications Albuterol/Ipratropium (Duoneb 3 Mg/0.5 Mg (3 Ml) Ud) 3 ml INH RTID [facility] Last Admin: 12/18/16 07:50 Dose: Not Given Alprazolam (Xanax) 0.5 mg PO TID PRN PRN Reason: Anxiety Last Admin: 12/18/16 04:26 Dose: 0.5 mg Alprazolam (Xanax) 1 mg PO TID [facility] Last Admin: 12/18/16 09:45 Dose: 1 mg Calcitriol (Rocaltrol) 0.25 mcg PO DAILY [facility] Last Admin: 12/18/16 09:45 Dose: 0.25 mcg Calcium Carbonate (Oscal) 500 mg PO BID [facility] Last Admin: 12/18/16 09:46 Dose: 500 mg Dexamethasone (Decadron) 6 mg PO Q12 [facility] Last Admin: 12/18/16 09:46 Dose: 6 mg Docusate Sodium (Colace) 200 mg PO DAILY [facility] Last Admin: 12/18/16 09:45 Dose: 200 mg Famotidine (Pepcid) 20 mg PO DAILY [facility] Last Admin: 12/18/16 09:46 Dose: 20 mg Hamamelis (Tucks) 1 pad TP Q2 PRN PRN Reason: Hemorrhoids Last Admin: 12/13/16 05:48 Dose: 1 pad Hydrocortisone (Anusol-Hc) 1 applic [place] BID [facility] Last Admin: 12/18/16 09:46 Dose: 1 applic Hydromorphone HCl (Dilaudid) 4 mg IVP Q4H [facility] Last Admin: 12/18/16 09:44 Dose: 4 mg Methadone HCl (Methadone) 10 mg PO Q4 [facility] Last Admin: 12/18/16 09:45 Dose: 10 mg Ondansetron HCl (Zofran Inj) 4 mg IVP Q4 PRN PRN Reason: Nausea/Vomiting Last Admin: 12/11/16 08:42 Dose: 4 mg Sennosides (Senokot Tab) 17.2 mg PO HS [facility] Last Admin: 12/17/16 22:24 Dose: 17.2 mg - Labs Labs: 12/18/16 05:30 12/18/16 05:30 PT 14.0 Seconds (9.8-13.1) H 11/26/16 22:19 INR 1.2 (0.9-1.2) 11/26/16 22:19 APTT 33.7 Seconds (25.6-37.1) 11/26/16 22:19
--- NOTE | 2016-12-18 13:10 | CP.PCM.PN ---
Subjective - Date & Time of Evaluation Date of Evaluation: 12/18/16 Time of Evaluation: 09:00 - Subjective Subjective: F/U Chest wall pain, TMJ pain. Chin numbness, No R hemithorax pain while on pain medication Objective - Vital Signs/Intake and Output Vital Signs (last 24 hours): Temp Pulse Resp BP Pulse Ox 97.7 F 85 20 129/80 99 12/18/16 09:00 12/18/16 09:00 12/18/16 09:00 12/18/16 09:00 12/18/16 09:00 - Medications Medications: Current Medications Albuterol/Ipratropium (Duoneb 3 Mg/0.5 Mg (3 Ml) Ud) 3 ml INH RTID [facility] Last Admin: 12/18/16 07:50 Dose: Not Given Alprazolam (Xanax) 0.5 mg PO TID PRN PRN Reason: Anxiety Last Admin: 12/18/16 04:26 Dose: 0.5 mg Alprazolam (Xanax) 1 mg PO TID [facility] Last Admin: 12/18/16 12:09 Dose: 1 mg Calcitriol (Rocaltrol) 0.25 mcg PO DAILY [facility] Last Admin: 12/18/16 09:45 Dose: 0.25 mcg Calcium Carbonate (Oscal) 500 mg PO BID [facility] Last Admin: 12/18/16 09:46 Dose: 500 mg Dexamethasone (Decadron) 6 mg PO Q12 [facility] Last Admin: 12/18/16 09:46 Dose: 6 mg Docusate Sodium (Colace) 200 mg PO DAILY [facility] Last Admin: 12/18/16 09:45 Dose: 200 mg Famotidine (Pepcid) 20 mg PO DAILY [facility] Last Admin: 12/18/16 09:46 Dose: 20 mg Hamamelis (Tucks) 1 pad TP Q2 PRN PRN Reason: Hemorrhoids Last Admin: 12/13/16 05:48 Dose: 1 pad Hydrocortisone (Anusol-Hc) 1 applic [place] BID [facility] Last Admin: 12/18/16 09:46 Dose: 1 applic Hydromorphone HCl (Dilaudid) 4 mg IVP Q4H [facility] Last Admin: 12/18/16 12:14 Dose: 4 mg Methadone HCl (Methadone) 10 mg PO Q4 [facility] Last Admin: 12/18/16 12:09 Dose: 10 mg Ondansetron HCl (Zofran Inj) 4 mg IVP Q4 PRN PRN Reason: Nausea/Vomiting Last Admin: 12/11/16 08:42 Dose: 4 mg Sennosides (Senokot Tab) 17.2 mg PO HS [facility] Last Admin: 12/17/16 22:24 Dose: 17.2 mg - Labs Labs: 12/18/16 05:30 12/18/16 05:30 PT 14.0 Seconds (9.8-13.1) H 11/26/16 22:19 INR 1.2 (0.9-1.2) 11/26/16 22:19 APTT 33.7 Seconds (25.6-37.1) 11/26/16 22:19 - Constitutional Appears: No Acute Distress, Chronically Ill - Head Exam Head Exam: NORMAL INSPECTION - Eye Exam Eye Exam: PERRL - ENT Exam Additional comments: Numbness chin bone area - Neck Exam Neck Exam: Normal Inspection - Respiratory Exam Respiratory Exam: Clear to Ausculation Bilateral Additional comments: No tenderness on palpation R Hemithorax. - Cardiovascular Exam Cardiovascular Exam: REGULAR RHYTHM - GI/Abdominal Exam GI & Abdominal Exam: Soft, Normal Bowel Sounds - Extremities Exam Extremities Exam: Normal Inspection - Back Exam Back Exam: tenderness (mild) - Neurological Exam Neurological Exam: Alert, Oriented x3 Additional comments: No focal motor/sensory deficit. - Psychiatric Exam Psychiatric exam: Anxious, Depressed - Skin Skin Exam: Warm Assessment and Plan (1) Chest wall pain, chronic Status: Acute (2) Temporomandibular joint (TMJ) pain Status: Acute (3) Maxillary pain Status: Acute (4) Mandible pain Status: Acute (5) Malignant neoplasm metastatic to liver Status: Acute (6) Stage 4 lung cancer Assessment & Plan: RUL Primary, metastasis intrathoracic, Liver , Mandibula ( Condyle ) L frontal bone , Brain Status: Acute (7) GORDY (acute kidney injury) Status: Acute (8) Brain metastasis Status: Acute (9) Anxiety Status: Chronic (10) Change in mental status Status: Acute (11) Leukopenia Status: Acute (12) Pancytopenia Status: Acute (13) Constipation Status: Acute - Assessment and Plan (Free Text) Plan: WBC 14.2 , improved stable to be discharge, continue RT as out patient, see inst/med sheet ,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
== END 2016-12-18 16:45 | disposition home or self-care (01) | DRG 542 ==
LOC: H.ER 20:56 → H.ERHOLD 23:16 → H.TEL 11-27 02:45 → OBSVTOIN 11-27 11:01 → H.MEDSURG1 12-01 15:13
PROVIDERS: ADMIT Internal Medicine Pulmonary Disease; ATTEND Internal Medicine Pulmonary Disease
PROC: 3E04305 Introduction of Other Antineoplastic into Central Vein, Percutaneous Approach (ICD-10-PCS; 2016-12-01)
PROC: 30233N1 Transfusion of Nonautologous Red Blood Cells into Peripheral Vein, Percutaneous Approach (ICD-10-PCS; principal; 2016-12-12)
DX: C79.51 Secondary malignant neoplasm of bone (principal); D61.810 Antineoplastic chemotherapy induced pancytopenia; N17.9 Acute kidney failure, unspecified; C78.1 Secondary malignant neoplasm of mediastinum; C78.7 Secondary malignant neoplasm of liver and intrahepatic bile duct; E83.51 Hypocalcemia; C79.31 Secondary malignant neoplasm of brain; E87.1 Hypo-osmolality and hyponatremia; C34.90 Malignant neoplasm of unspecified part of unspecified bronchus or lung; E87.5 Hyperkalemia; G89.29 Other chronic pain; D63.0 Anemia in neoplastic disease; T45.1X5A Adverse effect of antineoplastic and immunosuppressive drugs, initial encounter; I25.10 Atherosclerotic heart disease of native coronary artery without angina pectoris; M26.629 Arthralgia of temporomandibular joint, unspecified side; I10 Essential (primary) hypertension; E78.00 Pure hypercholesterolemia, unspecified; K59.00 Constipation, unspecified; F43.22 Adjustment disorder with anxiety; B19.20 Unspecified viral hepatitis C without hepatic coma; Z87.891 Personal history of nicotine dependence; Z92.21 Personal history of antineoplastic chemotherapy; Z92.3 Personal history of irradiation; Z95.5 Presence of coronary angioplasty implant and graft

== ENCOUNTER 2016-12-28 10:47 | Inpatient (IN) | payer BC, OTHER ==
[2016-12-28 10:50] VITALS: BMI 18.6
[2016-12-28] MEDS ORDERED: Sodium Chloride 0.9% 1,000 ML IV STA (11:48)
[2016-12-28] MEDS ORDERED: HYDROmorphone 0.5 mg/0.5 ml ISec IVP STA ×2 (11:48→15:08)
--- NOTE | 2016-12-28 12:01 | ED PDOC ---
HPI: General Adult Time Seen by Provider: 12/28/16 11:31 Chief Complaint (Nursing): Weakness/Neurological Deficit Chief Complaint (Provider): Weakness/Neurological Deficit History Per: Patient, Family (daughter) History/Exam Limitations: no limitations Onset/Duration Of Symptoms: Days (x2 weeks) Current Symptoms Are (Timing): Still Present Additional Complaint(s): José Miguel Rubio is a 56 year old male with previous medical history of stage IV lung cancer, who presents to the emergency department, accompanied by his daughter, with a complaint of general weakness and diffused bodyaches ongoing for 2 weeks. Denied any fever or chills. Patient stated last chemo/radiation treatment was about 1 week ago. PMD: Isma Saxena MD Past Medical History Reviewed: Historical Data, Nursing Documentation, Vital Signs Vital Signs: Last Vital Signs Temp 98.2 F 12/29/16 08:40 Pulse 93 H 12/29/16 08:40 Resp 20 12/29/16 08:40 BP 123/72 12/29/16 13:29 Pulse Ox 99 12/29/16 08:40 - Medical History PMH: Anemia, Anxiety, Bronchitis, CAD, Fractures, HTN, Hypercholesterolemia, Malignancy (Lung Ca) Denies: HIV, Chronic Kidney Disease - Surgical History Surgical History: Coronary Stent - Family History Family History: States: Unknown Family Hx - Social History Current smoker - smoking cessation education provided: No Alcohol: None Drugs: Denies - Home Medications Home Medications: Ambulatory Orders Medication Instructions Recorded ALPRAZolam [Xanax] 1 mg PO BID 11/17/16 Oxycodone HCl/Acetaminophen 1 tab PO Q6H PRN 11/17/16 [Endocet 10-325 mg Tablet] ALPRAZolam [Xanax] 1 mg PO HS 12/28/16 Methadone 10 mg PO QID 12/28/16 - Allergies Allergies/Adverse Reactions: Allergies Allergy/AdvReac Type Severity Reaction Status Date / Time No Known Allergies Allergy Verified 12/28/16 11:32 Review of Systems ROS Statement: Except As Marked, All Systems Reviewed And Found Negative Constitutional: Positive for: Weakness (general), Other (diffused bodyaches). Negative for: Fever, Chills Physical Exam - Reviewed Nursing Documentation Reviewed: Yes Vital Signs Reviewed: Yes - Physical Exam Appears: Positive for: No Acute Distress, Uncomfortable Head Exam: Positive for: ATRAUMATIC, NORMAL INSPECTION, NORMOCEPHALIC Skin: Positive for: Pallor. Negative for: Normal Color Eye Exam: Positive for: Normal appearance, EOMI, PERRL. Negative for: Nystagmus ENT: Positive for: Normal ENT Inspection Neck: Positive for: Normal, Painless ROM, Supple. Negative for: Decreased ROM, Limited ROM Cardiovascular/Chest: Positive for: Regular Rate, Rhythm, Chest Non Tender Respiratory: Positive for: Normal Breath Sounds, Accessory Muscle Use. Negative for: Decreased Breath Sounds, Respiratory Distress Gastrointestinal/Abdominal: Positive for: Normal Exam, Soft Back: Positive for: Normal Inspection. Negative for: L CVA Tenderness, R CVA Tenderness Extremity: Positive for: Normal ROM. Negative for: Tenderness, Pedal Edema, Calf Tenderness, Deformity, Swelling Neurologic/Psych: Positive for: Alert, Oriented, Mood/Affect (frail appearance) - Laboratory Results Result Diagrams: 12/29/16 06:50 12/29/16 06:50 - ECG O2 Sat by Pulse Oximetry: 98 (RA) Pulse Ox Interpretation: Normal Medical Decision Making Medical Decision Making: Initial Impression: Chronic cancer pain Initial Plan: * CMP * CBC * Dilaudid 1mg IVP * NS 1,000ml IV per 1,000mls/hr * Zofran inj 4mg IV ~ Scribe Attestation: Documented by Tracey Morley, acting as a scribe for Carlos Alberto Whittaker MD. Provider Scribe Attestation: All medical record entries made by the Scribe were at my direction and personally dictated by me. I have reviewed the chart and agree that the record accurately reflects my personal performance of the history, physical exam, medical decision making, and the department course for this patient. I have also personally directed, reviewed, and agree with the discharge instructions and disposition. Disposition - Clinical Impression Clinical Impression: Intractable pain - Patient ED Disposition Is Patient to be Admitted: Yes Discussed With : Isma Saxena Doctor Will See Patient In The: Hospital Counseled Patient/Family Regarding: Studies Performed, Diagnosis - Disposition Disposition Time: 14:20 Condition: FAIR - Pt Status Changed To: Hospital Disposition Of: Inpatient - Admit Certification Admit to Inpatient:: After my assessment, the patient will require hospitalization for at least two midnights. This is because of the severity of symptoms shown, intensity of services needed, and/or the medical risk in this patient being treated as an outpatient. - POA Present On Arrival: None
[2016-12-28 12:47] LABS: BASO % 0.2 % (0.0-2.0); EOS % 0.1 % (0.0-4.0); HEMATOCRIT 32.6 % (35.0-51.0); LYMPH # 0.3 K/uL (1.0-4.3); MEAN CELL VOLUME 82.7 fl (80.0-94.0); MEAN CORPUSCULAR HEMOGLOBIN 27.4 pg (27.0-31.0); MEAN CORPUSCULAR HGB CONC 33.2 g/dL (33.0-37.0); MEAN PLATELET VOLUME 7.9 fl (7.2-11.7); MONO % 12.5 % (0.0-10.0); NEUT # 6.8 K/uL (1.8-7.0); NEUT % 83.2 % (50.0-75.0); NRBC % 0.1 % (0.0-0.0); PLATELET COUNT 188 K/uL (130-400); RED CELL DISTRIBUTION WIDTH 18.8 % (11.5-14.5); WHITE BLOOD COUNT 8.2 K/uL (4.8-10.8)
[2016-12-28 13:02] LABS: BILIRUBIN,TOTAL 0.8 mg/dl (0.2-1.3)
[2016-12-28 13:46] LABS: NEUTROPHIL 90 % (42-75); TOTAL CELLS COUNTED 100
[2016-12-28] MEDS: Dextrose 5%/0.45% NS 1,000 ML IV SCH (20:58)
[2016-12-29] MEDS: Dextrose 5%/0.45% NS 1,000 ML IV SCH (02:32)
[2016-12-29 07:21] LABS: BASO % 0.3 % (0.0-2.0); HEMATOCRIT 23.6 % (35.0-51.0); LYMPH # 0.5 K/uL (1.0-4.3); LYMPH % 8.1 % (20.0-40.0); MEAN CELL VOLUME 84.1 fl (80.0-94.0); MEAN CORPUSCULAR HGB CONC 32.1 g/dL (33.0-37.0); MONO # 0.8 K/uL (0.0-0.8); MONO % 12.6 % (0.0-10.0); NEUT # 5.2 K/uL (1.8-7.0); RED CELL DISTRIBUTION WIDTH 17.9 % (11.5-14.5); WHITE BLOOD COUNT 6.5 K/uL (4.8-10.8)
[2016-12-29 07:35] LABS: BILIRUBIN,TOTAL 0.5 mg/dl (0.2-1.3); CALCIUM 7.8 mg/dL (8.4-10.2); POTASSIUM 4.6 MMOL/L (3.6-5.0); TOTAL PROTEIN 7.4 G/DL (6.3-8.2)
[2016-12-29] MEDS ORDERED: APREPITANT 125 MG CAP PO ONE (11:00)
[2016-12-29] MEDS ORDERED: Lidocaine/Prilocaine CREAM 5GM TP ONE (11:00)
[2016-12-29] MEDS ORDERED: DiphenhydrAMINE 50 mg/ml Inj IVP ONE (11:00)
[2016-12-29] MEDS ORDERED: Dexamethasone 10 MG in Sodium Chloride 0.9% 50 ML IVPB ONE (11:00)
[2016-12-29] MEDS ORDERED: Peppermint Spirits 30 ml Liq ONE (11:25)
[2016-12-29] MEDS: Sodium Chloride 0.9% 500 ML IV SCH ×3 (11:50→23:17)
--- NOTE | 2016-12-29 16:29 | CP.PCM.HP ---
History of Present Illness - History of Present Illness History of Present Illness: CC: Generalized weaknesses/ Body pain. 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 Worsening symptoms: Anxiety, dehydration. Multiple chronic medical conditions. Aggravated factor: Increased pain with movements. Pt denied: Fever, chills, n/v/d, bloody stool, urinary symptoms, CP, palpitations, SOB, bloody cough, syncope, numbness, sick contact, recent travel. Present on Admission - Present on Admission Any Indicators Present on Admission: No Review of Systems - Constitutional Constitutional: Weakness - EENT Eyes: Other (negative) Ears: Other (negative) Nose/Mouth/Throat: Other (negative) - Cardiovascular Cardiovascular: Other (negative) - Respiratory Respiratory: Other (negative) - Gastrointestinal Gastrointestinal: Other (negative) - Genitourinary Genitourinary: Other (negative) - Musculoskeletal Musculoskeletal: Muscle Weakness, Other (generalized body ache) - Integumentary Integumentary: Other (negative) - Neurological Neurological: Weakness - Psychiatric Psychiatric: Anxiety - Endocrine Endocrine: Other (negative) - Hematologic/Lymphatic Hematologic: Other (negative) Past Patient History - Infectious Disease Hx of Infectious Diseases: None - Past Medical History & Family History Past Medical History?: Yes Pertinent Family History: Unknown - Past Social History Smoking Status: Former Smoker Alcohol: None Drugs: Denies Home Situation {Lives}: With Family - CARDIAC Hx Cardiac Disorders: Yes Hx Hypercholesterolemia: Yes Hx Hypertension: Yes - PULMONARY Hx Respiratory Disorders: Yes Hx Bronchitis: Yes Hx Lung Cancer: Yes - NEUROLOGICAL Hx Neurological Disorder: No - HEENT Hx HEENT Problems: No - RENAL Hx Chronic Kidney Disease: No - ENDOCRINE/METABOLIC Hx Endocrine Disorders: No - HEMATOLOGICAL/ONCOLOGICAL Hx Blood Disorders: Yes Hx Anemia: Yes Hx Chemotherapy: Yes Hx Hepatitis C: Yes Hx Human Immunodeficiency Virus (HIV): No - INTEGUMENTARY Hx Dermatological Problems: No - MUSCULOSKELETAL/RHEUMATOLOGICAL Hx Musculoskeletal Disorders: Yes Hx Back Pain: Yes Hx Fractures: Yes - GASTROINTESTINAL Hx Gastrointestinal Disorders: Yes Hx Hemorrhoids: Yes - GENITOURINARY/GYNECOLOGICAL Hx Genitourinary Disorders: No - PSYCHIATRIC Hx Psychophysiologic Disorder: Yes Hx Anxiety: Yes - SURGICAL HISTORY Hx Surgeries: Yes Hx Coronary Stent: Yes - ANESTHESIA Hx Anesthesia: Yes Hx Anesthesia Reactions: No Hx Malignant Hyperthermia: No Meds Allergies/Adverse Reactions: Allergies Allergy/AdvReac Type Severity Reaction Status Date / Time No Known Allergies Allergy Verified 12/28/16 11:32 Physical Exam - Constitutional Appears: Chronically Ill - Head Exam Head Exam: NORMAL INSPECTION - Eye Exam Eye Exam: PERRL - ENT Exam ENT Exam: Normal Exam - Neck Exam Neck exam: Positive for: Normal Inspection - Respiratory Exam Respiratory Exam: Decreased Breath Sounds (at bases), Rhonchi (few scattered) Additional comments: Tenderness on palpation R hemithorax. - Cardiovascular Exam Cardiovascular Exam: REGULAR RHYTHM - GI/Abdominal Exam GI & Abdominal Exam: Normal Bowel Sounds, Soft - Extremities Exam Extremities exam: Positive for: tenderness (Thighs, shoulders) - Back Exam Back exam: tenderness (mild on palpation) - Neurological Exam Neurological exam: Alert, Oriented x3 Additional comments: No motor sensory deficit. - Psychiatric Exam Psychiatric exam: Anxious - Skin Skin Exam: Normal Color, Warm Results - Vital Signs Recent Vital Signs: Last Vital Signs Temp 98.2 F 12/29/16 08:40 Pulse 93 H 12/29/16 08:40 Resp 20 12/29/16 08:40 BP 123/72 12/29/16 13:29 Pulse Ox 98 12/29/16 15:33 reviewed J.Dana - Labs Result Diagrams: 12/30/16 10:00 12/30/16 10:00 Labs: Laboratory Results - last 24 hr 12/29/16 12/29/16 12/29/16 06:50 06:50 10:30 WBC 6.5 RBC 2.81 L Hgb 7.6 L D Hct 23.6 L MCV 84.1 MCH 27.0 MCHC 32.1 L RDW 17.9 H Plt Count 203 MPV 8.0 Neut % (Auto) 79.0 H Lymph % (Auto) 8.1 L [place] % (Auto) 12.6 H Eos % (Auto) 0.0 Baso % (Auto) 0.3 Neut # 5.2 Lymph # 0.5 L [place] # 0.8 Eos # 0.0 Baso # 0.0 Sodium 137 Potassium 4.6 Chloride 102 Carbon Dioxide 22 Anion Gap 17 BUN 77 H Creatinine 2.9 H Est GFR ( Amer) 27 Est GFR (Non-Af Amer) 22 Random Glucose 115 H Calcium 7.8 L Total Bilirubin 0.5 AST 75 H D ALT 29 Alkaline Phosphatase 90 Total Protein 7.4 Albumin 3.6 Globulin 3.7 Albumin/Globulin Ratio 1.0 Blood Type O POSITIVE Antibody Screen Negative Crossmatch See Detail BBK History Checked Patient has bt reviewed J.P. Assessment & Plan (1) General weakness Status: Acute Priority: High (2) Chronic generalized pain Status: Acute Priority: High (3) Malignant neoplasm of upper lobe of right lung Status: Chronic Priority: High (4) Dehydration Status: Acute Priority: High (5) Anemia Status: Chronic (6) GORDY (acute kidney injury) Status: Chronic (7) HTN (hypertension) Status: Chronic Priority: Medium (8) Anxiety Status: Chronic Priority: High - Assessment and Plan (Free Text) Plan: Continue Dilaudid, Methadone, NaCL IV,Xanax and rest of Tx, Hematology and Nephrology consult. - Date & Time Date: 12/29/16 Time: 08:20
--- NOTE | 2016-12-29 17:16 | CP.PCM.CON ---
History of Present Illness - History of Present Illness History of Present Illness: Pt seen, chemotherapy given , full notye to follow. Past Patient History - Infectious Disease Hx of Infectious Diseases: None - Past Medical History & Family History Past Medical History?: Yes - Past Social History Alcohol: None Drugs: Denies - CARDIAC Hx Hypercholesterolemia: Yes Hx Hypertension: Yes - PULMONARY Hx Bronchitis: Yes - NEUROLOGICAL Hx Neurological Disorder: No - HEENT Hx HEENT Problems: No - RENAL Hx Chronic Kidney Disease: No - ENDOCRINE/METABOLIC Hx Endocrine Disorders: No - HEMATOLOGICAL/ONCOLOGICAL Hx Anemia: Yes Hx Human Immunodeficiency Virus (HIV): No - INTEGUMENTARY Hx Dermatological Problems: No - MUSCULOSKELETAL/RHEUMATOLOGICAL Hx Fractures: Yes - GASTROINTESTINAL Hx Gastrointestinal Disorders: Yes Hx Hemorrhoids: Yes - GENITOURINARY/GYNECOLOGICAL Hx Genitourinary Disorders: No - PSYCHIATRIC Hx Anxiety: Yes - SURGICAL HISTORY Hx Coronary Stent: Yes - ANESTHESIA Hx Anesthesia: Yes Hx Anesthesia Reactions: No Hx Malignant Hyperthermia: No Meds Allergies/Adverse Reactions: Allergies Allergy/AdvReac Type Severity Reaction Status Date / Time No Known Allergies Allergy Verified 12/28/16 11:32 - Medications Medications: Current Medications Alprazolam (Xanax) 1 mg PO Q12 [facility] Last Admin: 12/29/16 09:31 Dose: Not Given Hydromorphone HCl (Dilaudid) 2 mg IVP Q2 PRN PRN Reason: Pain, severe (8-10) Last Admin: 12/29/16 11:54 Dose: 2 mg Dextrose/Sodium Chloride (Dextrose 5%/0.45% Ns 1000 Ml) 1,000 mls @ 125 mls/hr IV .Q8H [facility] Stop: 12/29/16 19:25 Last Admin: 12/29/16 02:32 Dose: 125 mls/hr Sodium Chloride (Sodium Chloride 0.9%) 500 mls @ 125 mls/hr IV .Q4H [facility] Last Admin: 12/29/16 11:50 Dose: 125 mls/hr Methadone HCl (Methadone) 10 mg PO QID [facility] Last Admin: 12/29/16 16:36 Dose: Not Given Results - Vital Signs Recent Vital Signs: Last Vital Signs Temp 98.2 F 12/29/16 08:40 Pulse 93 H 12/29/16 08:40 Resp 20 12/29/16 08:40 BP 123/72 12/29/16 13:29 Pulse Ox 98 12/29/16 15:33 - Labs Result Diagrams: 12/29/16 06:50 12/29/16 06:50 Labs: Laboratory Results - last 24 hr 12/29/16 12/29/16 12/29/16 06:50 06:50 10:30 WBC 6.5 RBC 2.81 L Hgb 7.6 L D Hct 23.6 L MCV 84.1 MCH 27.0 MCHC 32.1 L RDW 17.9 H Plt Count 203 MPV 8.0 Neut % (Auto) 79.0 H Lymph % (Auto) 8.1 L [place] % (Auto) 12.6 H Eos % (Auto) 0.0 Baso % (Auto) 0.3 Neut # 5.2 Lymph # 0.5 L [place] # 0.8 Eos # 0.0 Baso # 0.0 Sodium 137 Potassium 4.6 Chloride 102 Carbon Dioxide 22 Anion Gap 17 BUN 77 H Creatinine 2.9 H Est GFR ( Amer) 27 Est GFR (Non-Af Amer) 22 Random Glucose 115 H Calcium 7.8 L Total Bilirubin 0.5 AST 75 H D ALT 29 Alkaline Phosphatase 90 Total Protein 7.4 Albumin 3.6 Globulin 3.7 Albumin/Globulin Ratio 1.0 Blood Type O POSITIVE Antibody Screen Negative Crossmatch See Detail BBK History Checked Patient has bt
[2016-12-30] MEDS: Sodium Chloride 0.9% 500 ML IV SCH ×10 (02:41→23:11)
[2016-12-30] MEDS ORDERED: DiphenhydrAMINE 50 mg/ml Inj IVP ONE (09:00)
[2016-12-30] MEDS ORDERED: APREPITANT 80 MG CAP PO ONE (09:00)
[2016-12-30] MEDS ORDERED: Dexamethasone 10 MG in Sodium Chloride 0.9% 50 ML IVPB ONE (09:00)
[2016-12-30 10:42] LABS: HEMATOCRIT 27.9 % (35.0-51.0); MEAN CELL VOLUME 83.7 fl (80.0-94.0); MEAN CORPUSCULAR HGB CONC 33.4 g/dL (33.0-37.0); WHITE BLOOD COUNT 6.8 K/uL (4.8-10.8)
[2016-12-30 11:22] LABS: CALCIUM 7.7 mg/dL (8.4-10.2); POTASSIUM 4.5 MMOL/L (3.6-5.0)
--- NOTE | 2016-12-30 11:59 | CP.PCM.CON ---
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 He had been on chemotherapy for the past 5 months. He however had disease progression,.with brain metastasis. He was started on RT to the brain which he finished yesterday. He is now here for chemotherapy. He received cisplatin and etoposide yesterday and etoposide today and tomorrow. His metastasis was in the frontal area and he has a definite personality change. Past Patient History - Infectious Disease Hx of Infectious Diseases: None - Past Medical History & Family History Past Medical History?: Yes - Past Social History Alcohol: None Drugs: Denies - CARDIAC Hx Hypercholesterolemia: Yes Hx Hypertension: Yes - PULMONARY Hx Bronchitis: Yes - NEUROLOGICAL Hx Neurological Disorder: No - HEENT Hx HEENT Problems: No - RENAL Hx Chronic Kidney Disease: No - ENDOCRINE/METABOLIC Hx Endocrine Disorders: No - HEMATOLOGICAL/ONCOLOGICAL Hx Anemia: Yes Hx Human Immunodeficiency Virus (HIV): No - INTEGUMENTARY Hx Dermatological Problems: No - MUSCULOSKELETAL/RHEUMATOLOGICAL Hx Fractures: Yes - GASTROINTESTINAL Hx Gastrointestinal Disorders: Yes Hx Hemorrhoids: Yes - GENITOURINARY/GYNECOLOGICAL Hx Genitourinary Disorders: No - PSYCHIATRIC Hx Anxiety: Yes - SURGICAL HISTORY Hx Coronary Stent: Yes - ANESTHESIA Hx Anesthesia: Yes Hx Anesthesia Reactions: No Hx Malignant Hyperthermia: No Meds Allergies/Adverse Reactions: Allergies Allergy/AdvReac Type Severity Reaction Status Date / Time No Known Allergies Allergy Verified 12/28/16 11:32 - Medications Medications: Current Medications Alprazolam (Xanax) 1 mg PO Q12 [facility] Last Admin: 12/30/16 08:50 Dose: Not Given Hydromorphone HCl (Dilaudid) 2 mg IVP Q2 PRN PRN Reason: Pain, severe (8-10) Last Admin: 12/30/16 08:48 Dose: 2 mg Sodium Chloride (Sodium Chloride 0.9%) 500 mls @ 125 mls/hr IV .Q4H [facility] Last Admin: 12/30/16 08:41 Dose: Not Given Sodium Chloride (Sodium Chloride 0.9%) 500 mls @ 125 mls/hr IV .Q4H [facility] Last Admin: 12/30/16 09:04 Dose: 125 mls/hr Methadone HCl (Methadone) 10 mg PO QID [facility] Last Admin: 12/30/16 08:50 Dose: Not Given Physical Exam - Additional Findings Additional findings: Physical eam; Pt is very combative at times. neck supple, o adenopathy Chest; Air entry poor bilaterally, no rales or rhonchi Heart; RSR, no murmur Abd; soft, no mass. no h/s megaly Results - Vital Signs Recent Vital Signs: Last Vital Signs Temp 97.9 F 12/30/16 07:30 Pulse 71 12/30/16 07:30 Resp 20 12/30/16 07:30 BP 149/94 H 12/30/16 07:30 Pulse Ox 100 12/30/16 07:30 - Labs Result Diagrams: 12/30/16 10:00 12/29/16 06:50 Labs: Laboratory Results - last 24 hr 12/29/16 12/30/16 12/30/16 10:30 10:00 10:00 WBC 6.8 RBC 3.33 L Hgb 9.3 L Hct 27.9 L MCV 83.7 MCH 28.0 MCHC 33.4 RDW 18.0 H Plt Count 236 Est GFR ( Amer) 37 Est GFR (Non-Af Amer) 31 Blood Type O POSITIVE Antibody Screen Negative Crossmatch See Detail BBK History Checked Patient has bt Assessment & Plan - Assessment and Plan (Free Text) Assessment: impression; Small cell lung cancer,lung, liver and brain metastasis. Plan: Plan; will give chemotherapy today and tomorrow. - Date & Time Date: 12/30/16 Time: 12:06
--- NOTE | 2016-12-30 16:04 | CP.PCM.PN ---
Subjective - Date & Time of Evaluation Date of Evaluation: 12/30/16 Time of Evaluation: 10:30 - Subjective Subjective: F/U Weakness. RUL Ca. Pt awake, no A/D, able to give better history, he mention that a week ago start having progressive weakness to the point that couldn't walk, also c/o of generalized body pain, he said, a week ago was getting out of the car and felt down 2nd to weakness in lower extremities. Pt had Chemo a week and there after was scheduled for yesterday, today and tomorrow. Objective - Vital Signs/Intake and Output Vital Signs (last 24 hours): Temp Pulse Resp BP Pulse Ox 97.3 F L 73 18 164/94 H 99 12/30/16 15:58 12/30/16 15:58 12/30/16 15:58 12/30/16 15:58 12/30/16 15:58 - Medications Medications: Current Medications Alprazolam (Xanax) 1 mg PO Q12 [facility] Last Admin: 12/30/16 08:50 Dose: Not Given Hydromorphone HCl (Dilaudid) 2 mg IVP Q2 PRN PRN Reason: Pain, severe (8-10) Last Admin: 12/30/16 14:13 Dose: 2 mg Sodium Chloride (Sodium Chloride 0.9%) 500 mls @ 125 mls/hr IV .Q4H [facility] Last Admin: 12/30/16 16:02 Dose: Not Given Sodium Chloride (Sodium Chloride 0.9%) 500 mls @ 125 mls/hr IV .Q4H [facility] Last Admin: 12/30/16 16:02 Dose: Not Given Methadone HCl (Methadone) 10 mg PO QID [facility] Last Admin: 12/30/16 12:18 Dose: Not Given - Labs Labs: 12/30/16 10:00 12/30/16 10:00 - Constitutional Appears: No Acute Distress, Chronically Ill - Head Exam Head Exam: NORMAL INSPECTION - Eye Exam Eye Exam: PERRL - ENT Exam ENT Exam: Normal Exam - Neck Exam Neck Exam: Normal Inspection - Respiratory Exam Respiratory Exam: Decreased Breath Sounds (at bases), Rhonchi (few at bases) Additional comments: Tenderness on palpation R hemithorax - Cardiovascular Exam Cardiovascular Exam: REGULAR RHYTHM - GI/Abdominal Exam GI & Abdominal Exam: Soft, Normal Bowel Sounds - Extremities Exam Extremities Exam: Tenderness (thihs, shoulders.) - Back Exam Back Exam: tenderness (L-S) - Neurological Exam Neurological Exam: Alert, Oriented x3. absent: Motor Sensory Deficit - Psychiatric Exam Psychiatric exam: Anxious - Skin Skin Exam: Normal Color, Warm Assessment and Plan (1) Malignant neoplasm of upper lobe of right lung Status: Chronic (2) General weakness Status: Acute (3) Chronic generalized pain Status: Acute (4) Dehydration Status: Acute (5) Anemia Status: Chronic (6) GORDY (acute kidney injury) Status: Chronic (7) HTN (hypertension) Status: Chronic (8) Anxiety Status: Chronic - Assessment and Plan (Free Text) Plan: Continue Methadone, Dilaudid, Chemo, Social Service f/u, apparently Pt do not have place to stay.
[2016-12-31] MEDS: Sodium Chloride 0.9% 500 ML IV SCH ×3 (01:00→05:30)
[2016-12-31] MEDS ORDERED: Dexamethasone 10 MG in Sodium Chloride 0.9% 50 ML IVPB ONE (08:10)
[2016-12-31] MEDS ORDERED: DiphenhydrAMINE 50 mg/ml Inj IVP STA (08:12)
[2016-12-31] MEDS ORDERED: APREPITANT 80 MG CAP PO ONE (08:14)
[2016-12-31] MEDS ORDERED: Sodium Chloride 0.9% 500 ML IV SCH (08:15)
--- NOTE | 2016-12-31 10:20 | CP.PCM.PN ---
Subjective - Date & Time of Evaluation Date of Evaluation: 12/31/16 Time of Evaluation: 10:16 - Subjective Subjective: Pt will receive hgis third and last dose of chemotherapy toay. He has tolerated it well so far. His only complaint has been the pain for which he is constantly asking for pain medicatios. He seemed to do better with 2 mg q 2 hrs.than 4mg q 4 hrs,Will speak to Dr Saxena regarding the same. Objective - Vital Signs/Intake and Output Vital Signs (last 24 hours): Temp Pulse Resp BP Pulse Ox 97.2 F L 57 L 20 155/88 H 100 12/31/16 07:55 12/31/16 07:55 12/31/16 07:55 12/31/16 07:55 12/31/16 07:55 - Medications Medications: Current Medications Alprazolam (Xanax) 1 mg PO Q12 [facility] Last Admin: 12/31/16 09:52 Dose: Not Given Hydromorphone HCl (Dilaudid) 4 mg IVP Q4 PRN PRN Reason: Pain, severe (8-10) Last Admin: 12/31/16 06:58 Dose: 4 mg Sodium Chloride (Sodium Chloride 0.9%) 500 mls @ 125 mls/hr IV .Q4H [facility] Last Admin: 12/31/16 03:54 Dose: Not Given Sodium Chloride (Sodium Chloride 0.9%) 500 mls @ 125 mls/hr IV .Q4H [facility] Last Admin: 12/31/16 05:30 Dose: Not Given Sodium Chloride (Sodium Chloride 0.9%) 500 mls @ 125 mls/hr IV .Q4H [facility] Stop: 12/31/16 12:14 Etoposide 125 mg/ Sodium (Chloride) 506.25 mls @ 337.5 mls/hr IV ONCE ONE PRN Reason: As Directed Stop: 12/31/16 10:29 Methadone HCl (Methadone) 10 mg PO QID [facility] Last Admin: 12/31/16 09:52 Dose: Not Given - Labs Labs: 12/30/16 10:00 12/30/16 10:00
--- NOTE | 2016-12-31 10:37 | PQF GENQUE ---
This form is a permanent part of the medical record 12/31/16 Dr. Haley Durán, Would you please clarify the type/etiology of the Anemia if known. Patient who has lung cancer with metastasis to multiple sites who is receiving radiation and chemotherapy presents with generalized weakness and body pain. HGB 10.8, 7.6, 9.3 HCT: 32.6, 23.6, 27.9 RDW 18.8 Treated with transfusion of PRBC Clarification of your documentation is requested to better reflect the severity of illness and intensity of treatment of your patient. PHYSICIAN'S RESPONSE [] Chronic anemia [] Due to antineoplastic chemotherapy [] Due to neoplastic disease [] Chronic anemia [] Deficiency anemia ( please document type) [] Other anemia ( please specify ) [] Unable to determine [] Unknown Based on your medical judgment of the clinical indicators outlined above please clarify the following: [] Practitioner response [] If unable to determine, please check the box, sign and date. Present On Admission (POA) Indicator: [] Present at the time of admission [] Not present at the time of admission [] Clinically Undetermined In responding to this query, please exercise your independent professional judgment. The fact that a question is asked does not imply that any particular answer is desired or expected. Thank you for your clarification on this documentation. If you have any questions please call:ext [phone] * Thank you, Omaira Candelaria RN CDMP Anemia is secondary to antineoplastic drugs as well as the malignancy itself and was present on admission MTDD
[2016-12-31 14:02] LABS: URINE BILIRUBIN NEGATIVE (NEGATIVE); URINE BLOOD SMALL (NEGATIVE); URINE COLOR STRAW (YELLOW); URINE GLUCOSE (UA) NEG (Normal); URINE KETONE NEGATIVE (NEGATIVE); URINE LEUKOCYTE ESTERASE NEG Leu/uL (Negative); URINE PROTEIN NEGATIVE (NEGATIVE); URINE UROBILINOGEN 0.2-1.0 mg/dL (0.2-1.0); WBC URINE 1 /hpf (0-5)
[2016-12-31 14:10] LABS: RBC URINE 7 /hpf (0-3)
--- NOTE | 2016-12-31 16:26 | CP.PCM.PN ---
Subjective - Date & Time of Evaluation Date of Evaluation: 12/31/16 Time of Evaluation: 13:00 - Subjective Subjective: F/U Weakness/Pain Pt c/o of R hemithorax pain, also generalized body pain, occasional dry cough with increased pain in the R hemithorax. Objective - Vital Signs/Intake and Output Vital Signs (last 24 hours): Temp Pulse Resp BP Pulse Ox 97.3 F L 61 20 152/90 H 100 12/31/16 16:23 12/31/16 16:23 12/31/16 16:23 12/31/16 16:23 12/31/16 16:23 - Medications Medications: Current Medications Alprazolam (Xanax) 1 mg PO Q12 [facility] Last Admin: 12/31/16 09:52 Dose: Not Given Hydromorphone HCl (Dilaudid) 4 mg IVP Q4 PRN PRN Reason: Pain, severe (8-10) Last Admin: 12/31/16 15:04 Dose: 4 mg Sodium Chloride (Sodium Chloride 0.9%) 500 mls @ 125 mls/hr IV .Q4H [facility] Last Admin: 12/31/16 03:54 Dose: Not Given Sodium Chloride (Sodium Chloride 0.9%) 500 mls @ 125 mls/hr IV .Q4H [facility] Last Admin: 12/31/16 05:30 Dose: Not Given Methadone HCl (Methadone) 10 mg PO QID [facility] Last Admin: 12/31/16 09:52 Dose: Not Given - Labs Labs: 12/30/16 10:00 12/30/16 10:00 - Constitutional Appears: Chronically Ill - Head Exam Head Exam: NORMAL INSPECTION - Eye Exam Eye Exam: PERRL - ENT Exam ENT Exam: Normal Exam - Neck Exam Neck Exam: Normal Inspection - Respiratory Exam Respiratory Exam: Decreased Breath Sounds (at bases), Rhonchi (few scattered) Additional comments: Tenderness on palpation R hemithorax - Cardiovascular Exam Cardiovascular Exam: REGULAR RHYTHM - GI/Abdominal Exam GI & Abdominal Exam: Soft, Normal Bowel Sounds - Extremities Exam Extremities Exam: Normal Inspection, Tenderness (Thigh, shoulders.) - Back Exam Back Exam: tenderness (mild on palpation.) - Neurological Exam Neurological Exam: Alert, Oriented x3. absent: Motor Sensory Deficit - Psychiatric Exam Psychiatric exam: Anxious - Skin Skin Exam: Normal Color, Warm Assessment and Plan (1) Malignant neoplasm of upper lobe of right lung Status: Chronic (2) General weakness Status: Acute (3) Chronic generalized pain Status: Acute (4) Dehydration Status: Acute (5) Anemia Status: Chronic (6) GORDY (acute kidney injury) Status: Chronic (7) HTN (hypertension) Status: Chronic (8) Anxiety Status: Chronic - Assessment and Plan (Free Text) Plan: Continue Dilaudid, Methadone, rest of Tx. Pain Management consult.
--- NOTE | 2016-12-31 21:32 | CON ---
DATE: HISTORY OF PRESENT ILLNESS: The patient is 56 years of age known to me with acute renal failure from the last admission, who was admitted at this time with followup because he was coming for chemotherapy and he has this multitude of medical problem related to right upper lobe lung cancer stage IV with metastatic disease and liver metastases. The patient also has brain metastatic disease; he required radiation therapy last admission, which was couple of weeks ago when he developed acute kidney injury and his serum creatinine is still elevated somewhat. REVIEW OF SYSTEMS: The patient is frail, complained of weakness, tiredness, poor appetite, but no vomiting. All the systems reviewed except of the above has been mentioned. SOCIAL HISTORY: Noncontributory. PHYSICAL EXAMINATION: VITAL SIGNS: Blood pressure 149/94 with temperature 97.9 and pulse 71. NECK: Supple. CHEST: Few rhonchi and some wheezing in the right upper lung. HEART: No rubs. ABDOMEN: Soft. EXTREMITIES: No edema. LABORATORY DATA: Showed creatinine 3.3, came down to 2.9. The rest of the electrolytes are unremarkable. The patient has high glucose somewhat, 115. Calcium 7.8. Total bilirubin is normal and AST 75. IMPRESSION: The patient has acute kidney injury from the last admission and continue to be high serum creatinine, probably getting worse sometime from the dehydration, and I wonder if this going to become chronic kidney disease. We will keep monitoring and watching. In the meantime, the patient is receiving chemotherapy second day today with modified dose apparently as per renal failure, and follow up. Az Mera MD
--- NOTE | 2017-01-01 09:20 | CP.PCM.PN ---
Subjective - Date & Time of Evaluation Date of Evaluation: 01/01/17 Time of Evaluation: 09:17 - Subjective Subjective: Pt is feeling much better today. His painappears to be much better. He finished chemotherapy yesterday and tolerated it well. Will give him 4 dioses of granix since he has a h/o wbc come down very fast after chemo, Objective - Vital Signs/Intake and Output Vital Signs (last 24 hours): Temp Pulse Resp BP Pulse Ox 98.9 F 91 H 20 162/90 H 100 01/01/17 08:21 01/01/17 08:21 01/01/17 08:21 01/01/17 08:21 01/01/17 08:21 - Medications Medications: Current Medications Alprazolam (Xanax) 1 mg PO Q12 [facility] Last Admin: 01/01/17 08:41 Dose: 1 mg Hamamelis (Tucks) 1 pad TP Q2H [facility] Hydrocortisone (Anusol-Hc) 25 mg [place] BID [facility] Hydromorphone HCl (Dilaudid) 4 mg IVP Q4 PRN PRN Reason: Pain, severe (8-10) Last Admin: 01/01/17 08:36 Dose: 4 mg Sodium Chloride (Sodium Chloride 0.9%) 500 mls @ 125 mls/hr IV .Q4H [facility] Last Admin: 12/31/16 03:54 Dose: Not Given Sodium Chloride (Sodium Chloride 0.9%) 500 mls @ 125 mls/hr IV .Q4H [facility] Last Admin: 12/31/16 05:30 Dose: Not Given Methadone HCl (Methadone) 10 mg PO QID [facility] Last Admin: 12/31/16 21:59 Dose: 10 mg - Labs Labs: 12/30/16 10:00 12/30/16 10:00
--- NOTE | 2017-01-01 09:44 | CP.PCM.PN ---
Subjective - Date & Time of Evaluation Date of Evaluation: 01/01/17 Time of Evaluation: 09:42 - Subjective Subjective: awake, feels ok ,no changes clinically vital noted ok creat trending down improving GORDY continue monitoring completed chemo. Objective - Vital Signs/Intake and Output Vital Signs (last 24 hours): Temp Pulse Resp BP Pulse Ox 98.9 F 91 H 20 162/90 H 100 01/01/17 08:21 01/01/17 08:21 01/01/17 08:21 01/01/17 08:21 01/01/17 08:21 - Medications Medications: Current Medications Alprazolam (Xanax) 1 mg PO Q12 [facility] Last Admin: 01/01/17 08:41 Dose: 1 mg Hamamelis (Tucks) 1 pad TP Q2H [facility] Hydrocortisone (Anusol-Hc) 25 mg [place] BID [facility] Hydromorphone HCl (Dilaudid) 4 mg IVP Q4 PRN PRN Reason: Pain, severe (8-10) Last Admin: 01/01/17 08:36 Dose: 4 mg Sodium Chloride (Sodium Chloride 0.9%) 500 mls @ 125 mls/hr IV .Q4H [facility] Last Admin: 12/31/16 03:54 Dose: Not Given Sodium Chloride (Sodium Chloride 0.9%) 500 mls @ 125 mls/hr IV .Q4H [facility] Last Admin: 12/31/16 05:30 Dose: Not Given Methadone HCl (Methadone) 10 mg PO QID [facility] Last Admin: 12/31/16 21:59 Dose: 10 mg - Labs Labs: 12/30/16 10:00 12/30/16 10:00
[2017-01-01] MEDS ORDERED: Chlorhexidine Gluconate 1 APPL/PKT TP ONE (10:55)
[2017-01-01] MEDS: Sodium Chloride 0.9% 1,000 ML IV SCH ×2 (12:13→21:47)
[2017-01-01 14:47] LABS: HEMATOCRIT 29.8 % (35.0-51.0); MEAN CELL VOLUME 83.6 fl (80.0-94.0); MEAN CORPUSCULAR HEMOGLOBIN 27.6 pg (27.0-31.0); RED CELL DISTRIBUTION WIDTH 17.1 % (11.5-14.5); WHITE BLOOD COUNT 4.6 K/uL (4.8-10.8)
[2017-01-01 15:00] LABS: CALCIUM 7.1 mg/dL (8.4-10.2); POTASSIUM 4.3 MMOL/L (3.6-5.0)
--- NOTE | 2017-01-01 15:32 | CP.PCM.PN ---
Subjective - Date & Time of Evaluation Date of Evaluation: 01/01/17 Time of Evaluation: 08:10 - Subjective Subjective: RUL Neoplasm, Chronic pain. Objective - Vital Signs/Intake and Output Vital Signs (last 24 hours): Temp Pulse Resp BP Pulse Ox 98.9 F 91 H 20 162/90 H 100 01/01/17 08:21 01/01/17 08:21 01/01/17 08:21 01/01/17 08:21 01/01/17 08:21 - Medications Medications: Current Medications Alprazolam (Xanax) 1 mg PO Q12 [facility] Last Admin: 01/01/17 08:41 Dose: 1 mg Hamamelis (Tucks) 1 pad TP Q2H PRN PRN Reason: Hemorrhoids Hydrocortisone (Anusol-Hc) 25 mg [place] BID [facility] Hydromorphone HCl (Dilaudid) 4 mg IVP Q4 PRN PRN Reason: Pain, severe (8-10) Last Admin: 01/01/17 12:24 Dose: 4 mg Sodium Chloride (Sodium Chloride 0.9%) 1,000 mls @ 100 mls/hr IV .Q10H [facility] Stop: 01/02/17 11:47 Last Admin: 01/01/17 12:13 Dose: 100 mls/hr Methadone HCl (Methadone) 10 mg PO QID [facility] Last Admin: 01/01/17 14:54 Dose: 10 mg - Labs Labs: 01/01/17 14:41 01/01/17 14:41 - Constitutional Appears: No Acute Distress, Chronically Ill - Head Exam Head Exam: NORMAL INSPECTION - Eye Exam Eye Exam: PERRL - ENT Exam ENT Exam: Normal Exam - Neck Exam Neck Exam: Normal Inspection - Respiratory Exam Respiratory Exam: Decreased Breath Sounds (at bases), Rhonchi (few scattered) Additional comments: Tenderness on palpation R hemithorax. - Cardiovascular Exam Cardiovascular Exam: REGULAR RHYTHM - GI/Abdominal Exam GI & Abdominal Exam: Soft, Normal Bowel Sounds - Extremities Exam Extremities Exam: Tenderness (thighs, shoulders) - Back Exam Back Exam: tenderness (mild on palpation.) - Neurological Exam Neurological Exam: Alert, Oriented x3. absent: Motor Sensory Deficit - Psychiatric Exam Psychiatric exam: Anxious - Skin Skin Exam: Normal Color, Warm Assessment and Plan (1) Malignant neoplasm of upper lobe of right lung Status: Chronic (2) General weakness Status: Acute (3) Chronic generalized pain Status: Acute (4) Dehydration Status: Acute (5) Anemia Status: Chronic (6) GODRY (acute kidney injury) Status: Chronic (7) HTN (hypertension) Status: Chronic (8) Anxiety Status: Chronic
[2017-01-02 07:53] VITALS: BP 135/88; PULSE 75; RESP 20; TEMP 98.1; O2SAT 99
--- NOTE | 2017-01-02 08:38 | CP.PCM.PN ---
Subjective - Date & Time of Evaluation Date of Evaluation: 01/02/17 Time of Evaluation: 08:36 - Subjective Subjective: Pt starts complaining of pain 3 hrs after his medicine is given. I suggest we give him 2 mg dilaudid q 2hrs. He seemed to do better with that. He is on graix and the wbc count is 4.6 .Will give him another dose today He is probably going home with his brother and will try to tell the brother to keep tabs on the number of pills the pt takes. Objective - Vital Signs/Intake and Output Vital Signs (last 24 hours): Temp Pulse Resp BP Pulse Ox 98.1 F 75 20 135/88 99 01/02/17 07:52 01/02/17 07:52 01/02/17 07:52 01/02/17 07:52 01/02/17 07:52 - Medications Medications: Current Medications Alprazolam (Xanax) 1 mg PO Q12 [facility] Last Admin: 01/01/17 21:42 Dose: 1 mg Hamamelis (Tucks) 1 pad TP Q2H PRN PRN Reason: Hemorrhoids Last Admin: 01/01/17 16:42 Dose: 1 pad Hydrocortisone (Anusol-Hc) 25 mg [place] BID [facility] Last Admin: 01/01/17 20:36 Dose: 25 mg Hydromorphone HCl (Dilaudid) 4 mg IVP Q4 PRN PRN Reason: Pain, severe (8-10) Last Admin: 01/02/17 04:42 Dose: 4 mg Sodium Chloride (Sodium Chloride 0.9%) 1,000 mls @ 100 mls/hr IV .Q10H [facility] Stop: 01/02/17 11:47 Last Admin: 01/01/17 21:47 Dose: 100 mls/hr Methadone HCl (Methadone) 10 mg PO QID [facility] Last Admin: 01/01/17 21:42 Dose: 10 mg - Labs Labs: 01/01/17 14:41 01/01/17 14:41
[2017-01-02] MEDS: Sodium Chloride 0.9% 1,000 ML IV SCH (09:30)
--- NOTE | 2017-01-02 11:33 | CP.PCM.PCO ---
Assessment/Plan - Assessment/Plan Assessment (Free Text): Pt stable, seen and cleared for d/c home by Dr. Saxena and Dr. Durán. Urine culture reviewed with Dr. Saxena, sensitive to Cipro, pt to be d/c'd on Cipro 500mg bid x 10 days. Rx given. Pt has pain meds at home. To f/u with Dr. Saxena in 1 week. Pt and RN aware of plan.
--- NOTE | 2017-01-02 13:06 | CP.PCM.PN ---
Subjective - Date & Time of Evaluation Date of Evaluation: 01/02/17 Time of Evaluation: 11:00 - Subjective Subjective: RUL Neoplasm / Chronic pain. Pt c/o of generalized pain, tolerable with pain medications. Objective - Vital Signs/Intake and Output Vital Signs (last 24 hours): Temp Pulse Resp BP Pulse Ox 98.1 F 75 20 135/88 99 01/02/17 07:52 01/02/17 07:52 01/02/17 07:52 01/02/17 07:52 01/02/17 07:52 - Labs Labs: 01/01/17 14:41 01/01/17 14:41 - Constitutional Appears: No Acute Distress, Chronically Ill - Head Exam Head Exam: NORMAL INSPECTION - Eye Exam Eye Exam: PERRL - ENT Exam ENT Exam: Normal Exam - Neck Exam Neck Exam: Normal Inspection - Respiratory Exam Respiratory Exam: Decreased Breath Sounds (at bases), Rhonchi (few scattered) Additional comments: Tenderness on palpation R hemithorax. - Cardiovascular Exam Cardiovascular Exam: REGULAR RHYTHM - GI/Abdominal Exam GI & Abdominal Exam: Soft, Normal Bowel Sounds - Extremities Exam Extremities Exam: Tenderness (thighs and shoulders.) - Back Exam Back Exam: tenderness (mild on palpation) - Neurological Exam Neurological Exam: Alert, Oriented x3. absent: Motor Sensory Deficit - Psychiatric Exam Psychiatric exam: Anxious - Skin Skin Exam: Normal Color, Warm Assessment and Plan (1) Malignant neoplasm of upper lobe of right lung Status: Chronic (2) General weakness Status: Acute (3) Chronic generalized pain Status: Acute (4) Dehydration Status: Acute (5) Anemia Status: Chronic (6) GORDY (acute kidney injury) Status: Chronic (7) HTN (hypertension) Status: Chronic (8) Anxiety Status: Chronic (9) Urinary tract infection due to ESBL Klebsiella Status: Acute - Assessment and Plan (Free Text) Plan: U C-S: UTI Klebsiella ESBS, to be discharged in Levaquin for 10 days, improved and stable to be discharged home, f/u in my office in one week, f/u with hematology talent development consultant
== END 2017-01-02 12:54 | disposition home or self-care (01) | DRG 683 ==
LOC: H.ER 10:47 → H.ERHOLD 14:19 → H.MEDSURG1 15:27
PROVIDERS: ADMIT Internal Medicine Pulmonary Disease; ATTEND Internal Medicine Pulmonary Disease
PROC: 3E03305 Introduction of Other Antineoplastic into Peripheral Vein, Percutaneous Approach (ICD-10-PCS; principal; 2016-12-29)
PROC: 30233N1 Transfusion of Nonautologous Red Blood Cells into Peripheral Vein, Percutaneous Approach (ICD-10-PCS; 2016-12-30)
DX: N17.9 Acute kidney failure, unspecified (principal); C78.7 Secondary malignant neoplasm of liver and intrahepatic bile duct; C79.31 Secondary malignant neoplasm of brain; D64.81 Anemia due to antineoplastic chemotherapy; C34.11 Malignant neoplasm of upper lobe, right bronchus or lung; B96.1 Klebsiella pneumoniae [K. pneumoniae] as the cause of diseases classified elsewhere; E86.0 Dehydration; N39.0 Urinary tract infection, site not specified; D63.0 Anemia in neoplastic disease; T45.1X5A Adverse effect of antineoplastic and immunosuppressive drugs, initial encounter; G89.3 Neoplasm related pain (acute) (chronic); I10 Essential (primary) hypertension; I25.10 Atherosclerotic heart disease of native coronary artery without angina pectoris; F41.9 Anxiety disorder, unspecified; E78.00 Pure hypercholesterolemia, unspecified; Z79.891 Long term (current) use of opiate analgesic; Z92.3 Personal history of irradiation; Z95.5 Presence of coronary angioplasty implant and graft; Z87.891 Personal history of nicotine dependence

== ENCOUNTER 2017-01-07 09:13 | Inpatient (IN) | payer BC, OTHER ==
[2017-01-07 09:13] VITALS: BMI 18.6
--- NOTE | 2017-01-07 10:06 | ED PDOC ---
HPI: Chest Pain Time Seen by Provider: 01/07/17 09:32 Chief Complaint (Nursing): Chest Pain Chief Complaint (Provider): Chest Pain History Per: Patient, Family ( and daughter) History/Exam Limitations: no limitations Onset/Duration Of Symptoms: Days (x2) Current Symptoms Are (Timing): Still Present Additional Complaint(s): José Miguel Rubio is a 56 year old male that presents to the ED with a chief complaint of chest pain with associated productive cough of blood, fever, and chills that he has been experiencing for the past two days. Patient reports that he has had no appetite for the past four days and has not eaten since then. He additionally reports nausea, vomiting, and diarrhea that began four days ago. reports blood was present both during episodes of vomiting and diarrhea. Patient states that he has been urinating normally. Of Note: Patient has lung cancer, was diagnosed last year. He states that he gets chemotherapy, the last treatment of which was last week. Additionally patient reports that he has Rx for Dilaudid and Methadone for pain, but that he has not been taking them recently. Past Medical History Reviewed: Historical Data, Nursing Documentation, Vital Signs Vital Signs: Last Vital Signs Temp 98 F 01/07/17 09:22 Pulse 92 H 01/07/17 09:51 Resp 22 01/07/17 09:22 BP 109/81 01/07/17 09:51 Pulse Ox 98 01/07/17 10:13 - Medical History PMH: Anemia, Anxiety, Bronchitis, CAD, Fractures, HTN, Hypercholesterolemia, Malignancy (Lung Ca) Denies: HIV, Chronic Kidney Disease - Surgical History Surgical History: Coronary Stent - Family History Family History: States: Unknown Family Hx - Home Medications Home Medications: Ambulatory Orders Medication Instructions Recorded ALPRAZolam [Xanax] 1 mg PO TID PRN 11/17/16 Oxycodone HCl/Acetaminophen 1 tab PO Q6H PRN 11/17/16 [Endocet 10-325 mg Tablet] Methadone 10 mg PO QID 12/28/16 Docusate Sodium [Colace] 100 mg PO BID #60 capsule 01/02/17 Sulfamethoxazole/Trimethoprim 1 each PO BID #20 tablet 01/02/17 [Bactrim Ds Tablet] - Allergies Allergies/Adverse Reactions: Allergies Allergy/AdvReac Type Severity Reaction Status Date / Time No Known Allergies Allergy Verified 01/07/17 10:01 Review of Systems Constitutional: Positive for: Fever, Chills, Other (decreased appetitie, decreased PO intake) Cardiovascular: Positive for: Chest Pain Respiratory: Positive for: Cough (productive of blood) Gastrointestinal: Positive for: Nausea, Vomiting (blood present), Diarrhea ( blood present) Physical Exam - Reviewed Nursing Documentation Reviewed: Yes Vital Signs Reviewed: Yes - Physical Exam Appears: Positive for: Non-toxic, No Acute Distress (Patient is ill-appearing) Head Exam: Positive for: ATRAUMATIC, NORMOCEPHALIC Skin: Positive for: Normal Color, Warm, Pallor Eye Exam: Positive for: Normal appearance, EOMI, PERRL ENT: Positive for: Pharynx Is (clear), Other (Throat is clear. Lips are dry, tongue is slightly dry.). Negative for: Pharyngeal Erythema Cardiovascular/Chest: Positive for: Regular Rate, Rhythm. Negative for: Murmur Respiratory: Positive for: Normal Breath Sounds (Lung sounds clear). Negative for: Wheezing Gastrointestinal/Abdominal: Positive for: Normal Exam, Soft. Negative for: Tenderness Extremity: Positive for: Normal ROM. Negative for: Tenderness, Pedal Edema, Calf Tenderness, Swelling (no calf swelling) Neurologic/Psych: Positive for: Alert (Patient is awake and alert), Oriented (x3 ). Negative for: Motor/Sensory Deficits - Laboratory Results Result Diagrams: 01/07/17 10:33 01/07/17 10:33 - ECG O2 Sat by Pulse Oximetry: 98 (RA) Pulse Ox Interpretation: Normal Medical Decision Making Medical Decision Making: Impression: Chest Pain Plan: * Chest X-Ray * EKG * CMP * CBC * PTT * PT * VBG * Troponin I * Pepcid 20 mg PO * Dilaudid 2 mg IV * Zofran 4 mg IV * NaCl 1000 mLs at 1000 mLs/hr * Reevaluation Scribe Attestation: Documented by Kendra Campo, acting as a scribe for Teagan Boateng MD. Provider Scribe Attestation: All medical record entries made by the Scribe were at my direction and personally dictated by me. I have reviewed the chart and agree that the record accurately reflects my personal performance of the history, physical exam, medical decision making, and the department course for this patient. I have also personally directed, reviewed, and agree with the discharge instructions and disposition. 12.45 patient is feeling better. Still has pain. He is very concerned about his 25# weight loss in one month. He states that he has not eaten in 3 days. Case d/ w Dr. Saxena his PMD. Will admit. Disposition - Clinical Impression Clinical Impression: Lung cancer, Weakness - Patient ED Disposition Is Patient to be Admitted: Yes Doctor Will See Patient In The: Hospital - Disposition Disposition: Transfer of Care Disposition Time: 13:00 Condition: FAIR Instructions: Weakness (ED) Forms: [facility] ([place]) - Pt Status Changed To: Hospital Disposition Of: Observation - POA Present On Arrival: None
[2017-01-07] MEDS ORDERED: Sodium Chloride 0.9% 1,000 ML IV SCH (10:15)
[2017-01-07 10:38] LABS: VENOUS BLOOD GAS BASE EXCESS -2.7 mmol/L (0.0-2.0); VENOUS BLOOD GAS PCO2 30 mmHg (40-60); VENOUS BLOOD PH 7.44 (7.32-7.43)
[2017-01-07 10:42] LABS: BASO % 0.5 % (0.0-2.0); EOS % 0.4 % (0.0-4.0); HEMATOCRIT 31.2 % (35.0-51.0); LYMPH # 0.3 K/uL (1.0-4.3); LYMPH % 11.1 % (20.0-40.0); MEAN CELL VOLUME 80.2 fl (80.0-94.0); MEAN CORPUSCULAR HEMOGLOBIN 27.2 pg (27.0-31.0); MEAN CORPUSCULAR HGB CONC 33.9 g/dL (33.0-37.0); MEAN PLATELET VOLUME 7.7 fl (7.2-11.7); MONO # 0.4 K/uL (0.0-0.8); MONO % 12.6 % (0.0-10.0); NEUT # 2.2 K/uL (1.8-7.0); NEUT % 75.4 % (50.0-75.0); NRBC % 0.1 % (0.0-0.0); RED CELL DISTRIBUTION WIDTH 17.2 % (11.5-14.5); WHITE BLOOD COUNT 2.9 K/uL (4.8-10.8)
--- NOTE | 2017-01-07 10:42 | RAD ---
PROCEDURE: CHEST RADIOGRAPH, 1 VIEW HISTORY: chest pain COMPARISON: 11/26/2016 FINDINGS: LUNGS: Right apical opacity, unchanged. This corresponds to multifocal nodular opacities on chest CT examination of 11/27/2016. No other abnormal opacity elsewhere. PLEURA: No pneumothorax or pleural fluid seen. CARDIOVASCULAR: Normal heart size. No congestive change. Right central venous infusion port. OSSEOUS STRUCTURES: No significant abnormalities. VISUALIZED UPPER ABDOMEN: Normal. OTHER FINDINGS: None. IMPRESSION: Right apical opacity, unchanged. No acute infiltrate.
[2017-01-07 10:50] LABS: PARTIAL THROMBOPLASTIN TIME 30.3 Seconds (25.6-37.1)
[2017-01-07 11:05] LABS: TROPONIN I 0.014 ng/mL (0.00-0.120)
[2017-01-07 11:09] LABS: POTASSIUM 3.4 MMOL/L (3.6-5.0)
--- NOTE | 2017-01-07 11:44 | CARD ---
APPROVED REPORT EKG Measurement Heart [id number] <Conclusion> Sinus tachycardia Possible Left atrial enlargement Incomplete right bundle branch block Borderline ECG
[2017-01-07 12:18] LABS: ABG ALLEN TEST YES; ARTERIAL BLOOD GAS HCO3 21.2 mmol/L (21-28); ARTERIAL BLOOD GAS O2 CAPACITY 13.8 mL/dL (16-24); ARTERIAL BLOOD GAS O2 CONTENT 13.6 ML/dL (15-23); ARTERIAL BLOOD GAS PH 7.42 (7.35-7.45); ARTERIAL BLOOD GAS PO2 94 mm/Hg (80-100); ARTERIAL BLOOD HGB O2 SAT 95.6 % (95.0-98.0); CARBOXYHEMOGLOBIN 0.6 % (0.5-1.5); HHB 1.3 % (0.0-5.0); METHEMOGLOBIN 2.4 % (0.0-3.0)
[2017-01-07] MEDS ORDERED: Potassium Chloride 20 mEq ER Tab PO ONE (13:12)
[2017-01-08 14:06] LABS: RBC URINE < 1 /hpf (0-3); URINE BACTERIA FEW (<OCC); URINE BILIRUBIN NEGATIVE (NEGATIVE); URINE BLOOD NEGATIVE (NEGATIVE); URINE COLOR YELLOW (YELLOW); URINE GLUCOSE (UA) NEG (Normal); URINE KETONE NEGATIVE (NEGATIVE); URINE LEUKOCYTE ESTERASE NEG Leu/uL (Negative); URINE PROTEIN NEGATIVE (NEGATIVE); URINE UROBILINOGEN 0.2-1.0 mg/dL (0.2-1.0); WBC URINE 1 /hpf (0-5)
--- NOTE | 2017-01-08 14:28 | CP.PCM.HP ---
History of Present Illness - History of Present Illness History of Present Illness: CC: Chronic generalized pain. 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 Pt appear in ER [facility] for evaluation of acute on chronic generalized pain, more pronounced to the R Thoracic area, associated to severe generalized weakness, headache. Pt on Dilaudid and Methadone at home with no relief. Pt states, continue generalized pain, stabbing, gradually increased to severe intensity of 10:10 from the last 2 days [employer], with no improvement. Pt had Last chemo given last week. Worsening symptoms: UTI Klebsiella ESBL from last admission, discharged from [facility] on 01/02/17 on Levaquin for 10 days, chills, productive bloody cough, nausea, vomiting, lack of appetite and not eating for the last 4 days [employer]. Aggravated factor: Poor historian 2nd to illness. Pt denied: Fever, abdominal pain, dizziness, syncope, numbness, LOC, EKG showed: Sinus Tachycardia. CXR: R apical opacity unchanged, no acute infiltrate Present on Admission - Present on Admission Any Indicators Present on Admission: No Review of Systems - Constitutional Constitutional: Chills, Headache, Malaise, Weakness, Other (decreased appetite) - EENT Eyes: Other (negative) Ears: Other (negative) Nose/Mouth/Throat: Other (negative) - Cardiovascular Cardiovascular: Rapid Heart Rate - Respiratory Respiratory: Cough, Hemoptysis - Gastrointestinal Gastrointestinal: Constipation, Nausea, Vomiting - Genitourinary Genitourinary: Other (negative) - Musculoskeletal Musculoskeletal: Back Pain, Muscle Weakness, Other (generalized body pain.) - Integumentary Integumentary: Other (negative) - Neurological Neurological: Confusion (at times.), Weakness - Psychiatric Psychiatric: Anxiety, Irritability - Endocrine Endocrine: Other (negative) - Hematologic/Lymphatic Hematologic: Other (anemia) Past Patient History - Infectious Disease Hx of Infectious Diseases: None - Past Medical History & Family History Past Medical History?: Yes Pertinent Family History: Unknown - Past Social History Smoking Status: Never Smoked Alcohol: None Drugs: Denies (previous use in the past) Home Situation {Lives}: With Family - CARDIAC Hx Cardiac Disorders: Yes Hx Hypercholesterolemia: Yes Hx Hypertension: Yes - PULMONARY Hx Respiratory Disorders: Yes Hx Bronchitis: Yes Other/Comment: RUL NSC Ca Primary - NEUROLOGICAL Hx Neurological Disorder: No Other/Comment: Brain Left frontal lobe metastasis - HEENT Hx HEENT Problems: No - RENAL Hx Chronic Kidney Disease: No - ENDOCRINE/METABOLIC Hx Endocrine Disorders: No - HEMATOLOGICAL/ONCOLOGICAL Hx Blood Disorders: Yes Hx Chemotherapy: Yes - INTEGUMENTARY Hx Dermatological Problems: No - MUSCULOSKELETAL/RHEUMATOLOGICAL Hx Musculoskeletal Disorders: No Hx Falls: No - GASTROINTESTINAL Hx Gastrointestinal Disorders: Yes Hx Hemorrhoids: Yes - GENITOURINARY/GYNECOLOGICAL Hx Genitourinary Disorders: No - PSYCHIATRIC Hx Psychophysiologic Disorder: Yes Hx Substance Use: No - SURGICAL HISTORY Hx Coronary Stent: Yes - ANESTHESIA Hx Anesthesia: Yes Hx Anesthesia Reactions: No Hx Malignant Hyperthermia: No Meds Allergies/Adverse Reactions: Allergies Allergy/AdvReac Type Severity Reaction Status Date / Time No Known Allergies Allergy Verified 01/07/17 10:01 Physical Exam - Constitutional Appears: Chronically Ill - Head Exam Head Exam: NORMAL INSPECTION - Eye Exam Eye Exam: PERRL - ENT Exam ENT Exam: Normal Exam - Neck Exam Neck exam: Positive for: Normal Inspection - Respiratory Exam Respiratory Exam: Decreased Breath Sounds (at bases) Additional comments: Tenderness on palpation R hemithorax - Cardiovascular Exam Cardiovascular Exam: REGULAR RHYTHM - GI/Abdominal Exam GI & Abdominal Exam: Normal Bowel Sounds, Soft. absent: Guarding, Rebound, Tenderness - Extremities Exam Extremities exam: Positive for: tenderness (generalized) - Back Exam Back exam: tenderness (mild on palpation.) - Neurological Exam Neurological exam: Alert, Oriented x3 Additional comments: Confused at times, no focal motor sensory deficit , generalized weakness. - Psychiatric Exam Psychiatric exam: Anxious - Skin Skin Exam: Warm Results - Vital Signs Recent Vital Signs: Last Vital Signs Temp 98.3 F 01/08/17 08:40 Pulse 90 01/08/17 08:40 Resp 18 01/08/17 08:40 BP 152/82 H 01/08/17 08:40 Pulse Ox 100 01/08/17 08:40 reviewed Nayeli - Labs Result Diagrams: 01/13/17 06:05 01/11/17 04:00 Labs: Laboratory Results - last 24 hr 01/08/17 13:24 Urine Color Yellow Urine Clarity Slighty-cloudy Urine pH 5.0 Ur Specific [place] 1.014 Urine Protein Negative Urine Glucose (UA) Neg Urine Ketones Negative Urine Blood Negative Urine Nitrate Negative Urine Bilirubin Negative Urine Urobilinogen 0.2-1.0 Ur Leukocyte Esterase Neg Urine RBC (Auto) < 1 Urine Microscopic WBC 1 Amorphous Sediment Rare H Urine Bacteria Few H reviewed J.P. - EKG Data EKG comments: reviewed J.P. - Imaging and Cardiology Chest x-ray Status: Report reviewed by me (J,P,) Assessment & Plan (1) Neoplasm of lung, upper lobe, malignant Status: Acute Priority: High (2) Stage 4 lung cancer Status: Acute (3) GORDY (acute kidney injury) Status: Chronic (4) General weakness Status: Acute Priority: High (5) Chronic generalized pain Status: Acute Priority: High (6) Anemia Status: Chronic (7) Brain metastasis Status: Acute (8) Malignant neoplasm metastatic to liver Status: Acute Priority: High (9) Anxiety Status: Chronic Priority: High (10) Bone metastasis Status: Acute (11) Chemotherapy induced neutropenia Status: Resolved Comment: treated with Granix (12) Hx of urinary tract infection Status: Acute Comment: UTI Klebsiella ESBL 01-02-17 treated with Levaquin - Assessment and Plan (Free Text) Plan: Dilaudid IV, Methadone, Zosyn, Xanax and rest of Tx, PT eval, Hematology consult , Pain Management consult - Date & Time Date: 01/08/17 Time: 11:30
[2017-01-08] MEDS: Tmp-Smz 800 mg-160 mg DS Tab PO SCH ×2 (17:50→21:00)
[2017-01-09 06:55] LABS: BASO % 0.8 % (0.0-2.0); EOS % 0.3 % (0.0-4.0); LYMPH # 0.4 K/uL (1.0-4.3); LYMPH % 9.7 % (20.0-40.0); MEAN CELL VOLUME 83.4 fl (80.0-94.0); MEAN CORPUSCULAR HEMOGLOBIN 27.2 pg (27.0-31.0); MEAN CORPUSCULAR HGB CONC 32.6 g/dL (33.0-37.0); MEAN PLATELET VOLUME 8.2 fl (7.2-11.7); MONO # 0.4 K/uL (0.0-0.8); NEUT # 3.4 K/uL (1.8-7.0); NEUT % 80.2 % (50.0-75.0); NRBC % 0.1 % (0.0-0.0); RED CELL DISTRIBUTION WIDTH 17.3 % (11.5-14.5); WHITE BLOOD COUNT 4.3 K/uL (4.8-10.8)
[2017-01-09 08:20] LABS: CALCIUM 7.9 mg/dL (8.4-10.2); POTASSIUM 4.1 MMOL/L (3.6-5.0)
[2017-01-09 08:31] LABS: PLATELET COUNT 53 K/uL (130-400)
[2017-01-09] MEDS ORDERED: Piperacillin/Tazobact 3.375 GM in Sodium Chloride 0.9% 100 ML IVPB SCH (09:00)
[2017-01-09 09:09] LABS: LARGE PLATELETS PRESENT; NEUTROPHIL 78 % (42-75); TOTAL CELLS COUNTED 100
[2017-01-09] MEDS ORDERED: Vitamin A/D oint 60G TP PRN (12:03)
[2017-01-09] MEDS ORDERED: Lactulose 10 gm/15 ml Syrup PO PRN (13:36)
--- NOTE | 2017-01-09 13:40 | CP.PCM.CON ---
History of Present Illness - History of Present Illness History of Present Illness: This is a 56 yrs old male who was admitted with c/o nausea, poor appetite, weakness ang neutropenia. Pt has a Small cell cancer for which he has been on chemotherapy for the past 6 months. He had Liver and lung metastasiias right from the start, and after an initial response,his disease is now progressing. He was found to have brain metastasis 1 month ago and was treated with RT. He was approached with a discussion about his disease progression and how he gets sicker after the chemo. He however would not accept supportive care and wants to continue chemotherapy. This was given 10 days ago and he was to come for a blood test on last thursday , but did not keep his appointmant and is now is here with neutropenia, His WBC is 4..3, hgb 8.8 and platelets 53.K Past Patient History - Infectious Disease Hx of Infectious Diseases: None - Past Medical History & Family History Past Medical History?: Yes - Past Social History Smoking Status: Never Smoked Alcohol: None Drugs: Denies (previous use in the past) Home Situation {Lives}: With Family - CARDIAC Hx Cardiac Disorders: Yes Hx Hypercholesterolemia: Yes Hx Hypertension: Yes - PULMONARY Hx Respiratory Disorders: Yes Hx Bronchitis: Yes - NEUROLOGICAL Hx Neurological Disorder: No - HEENT Hx HEENT Problems: No - RENAL Hx Chronic Kidney Disease: No - ENDOCRINE/METABOLIC Hx Endocrine Disorders: No - HEMATOLOGICAL/ONCOLOGICAL Hx Blood Disorders: Yes - INTEGUMENTARY Hx Dermatological Problems: No - MUSCULOSKELETAL/RHEUMATOLOGICAL Hx Musculoskeletal Disorders: No Hx Falls: No - GASTROINTESTINAL Hx Gastrointestinal Disorders: Yes Hx Hemorrhoids: Yes - GENITOURINARY/GYNECOLOGICAL Hx Genitourinary Disorders: No - PSYCHIATRIC Hx Psychophysiologic Disorder: Yes Hx Substance Use: No - SURGICAL HISTORY Hx Coronary Stent: Yes - ANESTHESIA Hx Anesthesia: Yes Hx Anesthesia Reactions: No Hx Malignant Hyperthermia: No Meds Allergies/Adverse Reactions: Allergies Allergy/AdvReac Type Severity Reaction Status Date / Time No Known Allergies Allergy Verified 01/07/17 10:01 - Medications Medications: Current Medications Alprazolam (Xanax) 1 mg PO TID PRN PRN Reason: Anxiety Last Admin: 01/08/17 13:04 Dose: 1 mg Docusate Sodium (Colace) 100 mg PO BID RYAN Last Admin: 01/09/17 08:40 Dose: 100 mg Hydromorphone HCl (Dilaudid) 4 mg IVP Q4 PRN PRN Reason: Pain, severe (8-10) Last Admin: 01/09/17 11:58 Dose: 4 mg Dextrose/Sodium Chloride (Dextrose 5%-0.45% Ns 500 Ml) 1,000 mls @ 80 mls/hr IV .[id number] [facility] Stop: 01/09/17 14:52 Last Admin: 01/09/17 03:38 Dose: 80 mls/hr Methadone HCl (Methadone) 10 mg PO QID [facility] Last Admin: 01/09/17 13:08 Dose: 10 mg Vitamin A (Vitamin A&D) 1 applic TP Q8 PRN PRN Reason: Dry skin Last Admin: 01/09/17 13:09 Dose: 1 applic Physical Exam - Additional Findings Additional findings: Physical exam; alert, well oriented, in no acute distress neck; Supple. no adenopathy Chest; no rales or rhonchi, decreased breath sounds bilaterally. Heart; RSR, no murmur abd; soft, liver 2 cm below costal line Results - Vital Signs Recent Vital Signs: Last Vital Signs Temp 98.3 F 01/09/17 08:17 Pulse 93 H 01/09/17 08:17 Resp 20 01/09/17 08:17 BP 135/83 01/09/17 08:17 Pulse Ox 100 01/09/17 08:17 - Labs Result Diagrams: 01/09/17 06:34 01/09/17 04:00 Labs: Laboratory Results - last 24 hr 01/08/17 01/09/17 01/09/17 13:24 04:00 06:34 WBC 4.3 L RBC 3.24 L Hgb 8.8 L Hct 27.0 L MCV 83.4 D MCH 27.2 MCHC 32.6 L RDW 17.3 H Plt Count 53 L D MPV 8.2 Neut % (Auto) 80.2 H Lymph % (Auto) 9.7 L Gove % (Auto) 9.0 Eos % (Auto) 0.3 Baso % (Auto) 0.8 Neut # 3.4 Lymph # 0.4 L Gove # 0.4 Eos # 0.0 Baso # 0.0 Neutrophils % (Manual) 78 H Band Neutrophils % 5 H Lymphocytes % (Manual) 8 L Monocytes % (Manual) 9 Platelet Estimate Decreased L Large Platelets Present Hypochromasia (manual) Slight Poikilocytosis (manual Slight Anisocytosis (manual) Slight Ovalocytes Slight Sodium 136 Potassium 4.1 Chloride 102 Carbon Dioxide 25 Anion Gap 13 BUN 37 H Creatinine 1.9 H Est GFR ( Amer) 44 Est GFR (Non-Af Amer) 37 Random Glucose 95 Calcium 7.9 L Urine Color Yellow Urine Clarity Slighty-cloudy Urine pH 5.0 Ur Specific [place] 1.014 Urine Protein Negative Urine Glucose (UA) Neg Urine Ketones Negative Urine Blood Negative Urine Nitrate Negative Urine Bilirubin Negative Urine Urobilinogen 0.2-1.0 Ur Leukocyte Esterase Neg Urine RBC (Auto) < 1 Urine Microscopic WBC 1 Amorphous Sediment Rare H Urine Bacteria Few H Assessment & Plan - Assessment and Plan (Free Text) Assessment: Impression; Small cell cancer, liver and brain metastasis Neutropenia secondary to chemotherapy. Plan: Plan; Will give him granix for the neutropenia. I feel pt needs some physical therapy for ambulation,. Hydration Pain control - Date & Time Date: 01/09/17 Time: 13:55
[2017-01-09] MEDS ORDERED: Mag&Al/Simet/Diphen/Lido 237 ML KIT PO SCH (14:00)
[2017-01-09] MEDS: Mag&Al/Simet/Diphen/Lido 237 ML KIT PO PRN ×2 (16:18→18:50)
--- NOTE | 2017-01-09 17:30 | CP.PCM.PN ---
Subjective - Date & Time of Evaluation Date of Evaluation: 01/09/17 Time of Evaluation: 12:00 - Subjective Subjective: F/U RUL Neoplasm. Pt c/o generalized weakness and body pain. Objective - Vital Signs/Intake and Output Vital Signs (last 24 hours): Temp Pulse Resp BP Pulse Ox 98.6 F 82 20 108/71 99 01/09/17 15:54 01/09/17 15:54 01/09/17 15:54 01/09/17 15:54 01/09/17 15:54 - Medications Medications: Current Medications Alprazolam (Xanax) 1 mg PO TID PRN PRN Reason: Anxiety Last Admin: 01/08/17 13:04 Dose: 1 mg Docusate Sodium (Colace) 100 mg PO BID [facility] Last Admin: 01/09/17 17:14 Dose: 100 mg Hydromorphone HCl (Dilaudid) 4 mg IVP Q4 PRN PRN Reason: Pain, severe (8-10) Last Admin: 01/09/17 15:55 Dose: 4 mg Lactulose (Enulose) 10 gm PO DAILY PRN PRN Reason: Constipation Last Admin: 01/09/17 17:14 Dose: 10 gm Methadone HCl (Methadone) 10 mg PO QID [facility] Last Admin: 01/09/17 17:13 Dose: 10 mg Ondansetron HCl (Zofran Inj) 4 mg IVP Q6 PRN PRN Reason: Nausea/Vomiting Saliva Substitute (First Magic Mouthwash) 5 ml PO Q1H PRN PRN Reason: Pain, Mild (1-3) Last Admin: 01/09/17 16:18 Dose: 5 ml Vitamin A (Vitamin A&D) 1 applic TP Q8 PRN PRN Reason: Dry skin Last Admin: 01/09/17 13:09 Dose: 1 applic - Labs Labs: 01/09/17 06:34 01/09/17 04:00 PT 15.8 Seconds (9.8-13.1) H 01/07/17 10:33 INR 1.4 (0.9-1.2) H 01/07/17 10:33 APTT 30.3 Seconds (25.6-37.1) 01/07/17 10:33 - Constitutional Appears: No Acute Distress, Chronically Ill - Head Exam Head Exam: NORMAL INSPECTION - Eye Exam Eye Exam: PERRL - ENT Exam ENT Exam: Normal Exam - Neck Exam Neck Exam: Normal Inspection - Respiratory Exam Respiratory Exam: Decreased Breath Sounds (at bases), Rhonchi (few scattered) Additional comments: tenderness R Hemithorax - Cardiovascular Exam Cardiovascular Exam: REGULAR RHYTHM - GI/Abdominal Exam GI & Abdominal Exam: Soft, Normal Bowel Sounds - Extremities Exam Extremities Exam: Tenderness - Back Exam Back Exam: tenderness - Neurological Exam Neurological Exam: Alert, Oriented x3. absent: Motor Sensory Deficit - Psychiatric Exam Psychiatric exam: Anxious - Skin Skin Exam: Pallor Assessment and Plan (1) Neoplasm of lung, upper lobe, malignant Status: Acute (2) Stage 4 lung cancer Assessment & Plan: Small cell Ca RUL with Brain, frontal bone , mandible , intrathoracic , Liver metastasis Status: Acute (3) Urinary tract infection due to ESBL Klebsiella Assessment & Plan: U c-S negative Status: Resolved (4) GORDY (acute kidney injury) Status: Chronic (5) General weakness Status: Acute (6) Chronic generalized pain Status: Acute (7) Anemia Status: Chronic (8) Brain metastasis Status: Acute (9) Malignant neoplasm metastatic to liver Status: Acute (10) Bone metastasis Status: Acute (11) Chemotherapy induced neutropenia Status: Acute (12) Anxiety Status: Chronic - Assessment and Plan (Free Text) Plan: Continue Methadone, Dilaudid, Granix and PT eval. , Hematology consult appreciated
[2017-01-10 08:14] LABS: MEAN CELL VOLUME 82.3 fl (80.0-94.0); MEAN CORPUSCULAR HEMOGLOBIN 28.1 pg (27.0-31.0); MEAN CORPUSCULAR HGB CONC 34.2 g/dL (33.0-37.0); RED CELL DISTRIBUTION WIDTH 17.2 % (11.5-14.5); WHITE BLOOD COUNT 2.5 K/uL (4.8-10.8)
[2017-01-10] MEDS: Mag&Al/Simet/Diphen/Lido 237 ML KIT PO PRN (08:14)
[2017-01-10 09:26] LABS: CALCIUM 7.9 mg/dL (8.4-10.2); POTASSIUM 3.8 MMOL/L (3.6-5.0)
--- NOTE | 2017-01-10 10:00 | CP.PCM.PN ---
Subjective - Date & Time of Evaluation Date of Evaluation: 01/10/17 Time of Evaluation: 10:00 - Subjective Subjective: Patient seen and examined bedside for NSCLC with metastasis. Pt comfortable, pain controlled. No other complaints at this time. HD stable NAD. Objective - Vital Signs/Intake and Output Vital Signs (last 24 hours): Temp Pulse Resp BP Pulse Ox 98.5 F 101 H 20 123/78 99 01/10/17 08:18 01/10/17 08:18 01/10/17 08:18 01/10/17 08:18 01/10/17 08:18 - Medications Medications: Current Medications Alprazolam (Xanax) 1 mg PO TID PRN PRN Reason: Anxiety Last Admin: 01/08/17 13:04 Dose: 1 mg Docusate Sodium (Colace) 100 mg PO BID [facility] Last Admin: 01/10/17 08:14 Dose: 100 mg Hydromorphone HCl (Dilaudid) 4 mg IVP Q4 PRN PRN Reason: Pain, severe (8-10) Last Admin: 01/10/17 08:10 Dose: 4 mg Lactulose (Enulose) 10 gm PO DAILY PRN PRN Reason: Constipation Last Admin: 01/09/17 17:14 Dose: 10 gm Methadone HCl (Methadone) 10 mg PO QID [facility] Last Admin: 01/10/17 09:45 Dose: 10 mg Ondansetron HCl (Zofran Inj) 4 mg IVP Q6 PRN PRN Reason: Nausea/Vomiting Last Admin: 01/10/17 08:15 Dose: 4 mg Saliva Substitute (First Magic Mouthwash) 5 ml PO Q1H PRN PRN Reason: Pain, Mild (1-3) Last Admin: 01/10/17 08:14 Dose: 5 ml Vitamin A (Vitamin A&D) 1 applic TP Q8 PRN PRN Reason: Dry skin Last Admin: 01/09/17 13:09 Dose: 1 applic - Labs Labs: 01/10/17 06:30 01/10/17 06:30 PT 15.8 Seconds (9.8-13.1) H 01/07/17 10:33 INR 1.4 (0.9-1.2) H 01/07/17 10:33 APTT 30.3 Seconds (25.6-37.1) 01/07/17 10:33 - Constitutional Appears: Non-toxic, No Acute Distress, Cachectic - Head Exam Head Exam: ATRAUMATIC, NORMOCEPHALIC - Eye Exam Eye Exam: EOMI, Normal appearance, PERRL Pupil Exam: NORMAL ACCOMODATION - ENT Exam ENT Exam: Mucous Membranes Moist - Neck Exam Neck Exam: Normal Inspection, Tenderness - Respiratory Exam Respiratory Exam: Clear to Ausculation Bilateral, NORMAL BREATHING PATTERN - Cardiovascular Exam Cardiovascular Exam: RRR, +S1, +S2 - GI/Abdominal Exam GI & Abdominal Exam: Soft, Normal Bowel Sounds. absent: Tenderness, Pulsatile Mass, Rebound - Extremities Exam Extremities Exam: Normal Capillary Refill, Normal Inspection - Back Exam Back Exam: NORMAL INSPECTION. absent: CVA tenderness (L), CVA tenderness (R) - Neurological Exam Neurological Exam: Alert, Awake, Oriented x3 - Psychiatric Exam Psychiatric exam: Normal Affect, Normal Mood - Skin Skin Exam: Dry, Warm Assessment and Plan - Assessment and Plan (Free Text) Plan: 56 year old male admitted for intractable thoracic back pain 2/2 metastasis NSCLC. Intractable pain 2/2 NSCLC STAGE IV continue current regimen ALPRAZolam [Xanax] 1 mg PO TID PRN HYDROmorphone [Dilaudid] 4 mg IVP Q4 PRN Methadone 10 mg PO QID Symptomatic control Docusate [Colace] 100 mg PO BID Lactulose [Enulose] 10 gm PO DAILY PRN Ondansetron [Zofran Inj] 4 mg IVP Q6 PRN Mag&Al/Simet/Diphen/Lido [First Magic Mouthwash] 5 ml PO Q1H PRN Vitamin A/D [Vitamin A&D] 1 applic TP Q8 PRN Neurtropenia Dr Madelyn Durán +Granix per Dr. Madelyn Durán VTE ppx HOLD pharmacologic VTE ppx, platelets low
[2017-01-11] MEDS: Sodium Chloride 0.9% 1,000 ML IV SCH ×2 (10:14→16:15)
--- NOTE | 2017-01-11 11:33 | CP.PCM.PN ---
Subjective - Date & Time of Evaluation Date of Evaluation: 01/11/17 Time of Evaluation: 11:30 - Subjective Subjective: pt seen examined bedside intractable pain requiring IV pain meds as he states the PO meds do not work. NAD HD STABLE. no chest pain, no sob. Objective - Vital Signs/Intake and Output Vital Signs (last 24 hours): Temp Pulse Resp BP Pulse Ox 97.9 F 93 H 20 131/86 99 01/11/17 08:07 01/11/17 08:07 01/11/17 08:07 01/11/17 08:07 01/11/17 08:07 - Medications Medications: Current Medications Alprazolam (Xanax) 1 mg PO TID PRN PRN Reason: Anxiety Last Admin: 01/08/17 13:04 Dose: 1 mg Docusate Sodium (Colace) 100 mg PO BID [facility] Last Admin: 01/11/17 08:25 Dose: 100 mg Hydromorphone HCl (Dilaudid) 4 mg IVP Q4 PRN PRN Reason: Pain, severe (8-10) Dextrose/Sodium Chloride (Dextrose 5%-0.45% Ns 500 Ml) 500 mls @ 80 mls/hr IV .Q6H15M [facility] Stop: 01/11/17 16:14 Last Admin: 01/11/17 06:17 Dose: Not Given Sodium Chloride (Sodium Chloride 0.9%) 1,000 mls @ 250 mls/hr IV .Q4H [facility] Stop: 01/11/17 17:44 Last Admin: 01/11/17 10:14 Dose: 250 mls/hr Lactulose (Enulose) 10 gm PO DAILY PRN PRN Reason: Constipation Last Admin: 01/09/17 17:14 Dose: 10 gm Methadone HCl (Methadone) 10 mg PO QID [facility] Last Admin: 01/11/17 10:10 Dose: 10 mg Ondansetron HCl (Zofran Inj) 4 mg IVP Q6 PRN PRN Reason: Nausea/Vomiting Last Admin: 01/10/17 08:15 Dose: 4 mg Saliva Substitute (First Magic Mouthwash) 5 ml PO Q1H PRN PRN Reason: Pain, Mild (1-3) Last Admin: 01/10/17 08:14 Dose: 5 ml Vitamin A (Vitamin A&D) 1 applic TP Q8 PRN PRN Reason: Dry skin Last Admin: 01/09/17 13:09 Dose: 1 applic - Labs Labs: 01/10/17 06:30 01/10/17 06:30 PT 15.8 Seconds (9.8-13.1) H 01/07/17 10:33 INR 1.4 (0.9-1.2) H 01/07/17 10:33 APTT 30.3 Seconds (25.6-37.1) 01/07/17 10:33 - Constitutional Appears: Non-toxic, No Acute Distress, Cachectic, Chronically Ill - Head Exam Head Exam: ATRAUMATIC - Eye Exam Eye Exam: EOMI, Normal appearance, PERRL - ENT Exam ENT Exam: Mucous Membranes Moist, Normal Oropharynx - Neck Exam Neck Exam: Full ROM, Normal Inspection - Respiratory Exam Respiratory Exam: Clear to Ausculation Bilateral, NORMAL BREATHING PATTERN. absent: Rales, Rhonchi - Cardiovascular Exam Cardiovascular Exam: REGULAR RHYTHM, +S1, +S2. absent: Rubs - GI/Abdominal Exam GI & Abdominal Exam: Soft, Normal Bowel Sounds, Organomegaly. absent: Tenderness, Mass - Extremities Exam Extremities Exam: Normal Capillary Refill, Normal Inspection. absent: Calf Tenderness - Back Exam Back Exam: absent: CVA tenderness (L), CVA tenderness (R) - Neurological Exam Neurological Exam: Alert, Awake, Oriented x3 - Psychiatric Exam Psychiatric exam: Normal Affect, Normal Mood - Skin Skin Exam: Dry, Warm Assessment and Plan - Assessment and Plan (Free Text) Plan: 56 year old male admitted for intractable thoracic back pain 2/2 metastasis NSCLC. Continue current regimen. NAD. Intractable pain 2/2 NSCLC STAGE IV continue current regimen ALPRAZolam [Xanax] 1 mg PO TID PRN HYDROmorphone [Dilaudid] 4 mg IVP Q4 PRN Methadone 10 mg PO QID Symptomatic control Docusate [Colace] 100 mg PO BID Lactulose [Enulose] 10 gm PO DAILY PRN Ondansetron [Zofran Inj] 4 mg IVP Q6 PRN Mag&Al/Simet/Diphen/Lido [First Magic Mouthwash] 5 ml PO Q1H PRN Vitamin A/D [Vitamin A&D] 1 applic TP Q8 PRN Neurtropenia Dr V Damle WBC 2.5 TODAY +Granix per Dr. Madelyn Durán VTE ppx HOLD pharmacologic VTE ppx, platelets low
[2017-01-11 12:49] LABS: BASO % 0.8 % (0.0-2.0); EOS % 0.6 % (0.0-4.0); HEMATOCRIT 27.6 % (35.0-51.0); LYMPH # 0.6 K/uL (1.0-4.3); MEAN CELL VOLUME 82.6 fl (80.0-94.0); MEAN CORPUSCULAR HEMOGLOBIN 27.7 pg (27.0-31.0); MEAN CORPUSCULAR HGB CONC 33.5 g/dL (33.0-37.0); MEAN PLATELET VOLUME 7.7 fl (7.2-11.7); MONO # 0.7 K/uL (0.0-0.8); MONO % 20.3 % (0.0-10.0); NEUT % 61.3 % (50.0-75.0); NRBC % 0.2 % (0.0-0.0); PLATELET COUNT 76 K/uL (130-400); RED CELL DISTRIBUTION WIDTH 17.4 % (11.5-14.5); WHITE BLOOD COUNT 3.3 K/uL (4.8-10.8)
[2017-01-11 13:30] LABS: METAMYELOCYTE 3 % (0-0); MYELOCYTE 1 % (0-0); NEUTROPHIL 45 % (42-75); TOTAL CELLS COUNTED 100
[2017-01-11 14:04] LABS: BLOOD UREA NITROGEN 18 mg/dl (9-20); CALCIUM 8.3 mg/dL (8.4-10.2); CARBON DIOXIDE 26 mmol/L (22-30); CHLORIDE 100 mmol/L (98-107); GFR AFRICAN-AMERICAN > 60; GLUCOSE,RANDOM 105 mg/dL (75-110); POTASSIUM 3.7 MMOL/L (3.6-5.0); SODIUM 137 mmol/l (132-148)
--- NOTE | 2017-01-11 14:29 | CP.PCM.PN ---
Subjective - Date & Time of Evaluation Date of Evaluation: 01/11/17 Time of Evaluation: 14:28 - Subjective Subjective: Pt is asleep now but has not had any nausea or vomiting. He has c/o pain and only feels fine when he gets his analgesics q 4 hrs. Objective - Vital Signs/Intake and Output Vital Signs (last 24 hours): Temp Pulse Resp BP Pulse Ox 97.9 F 93 H 20 131/86 99 01/11/17 08:07 01/11/17 08:07 01/11/17 08:07 01/11/17 08:07 01/11/17 08:07 - Medications Medications: Current Medications Alprazolam (Xanax) 1 mg PO TID PRN PRN Reason: Anxiety Last Admin: 01/08/17 13:04 Dose: 1 mg Docusate Sodium (Colace) 100 mg PO BID [facility] Last Admin: 01/11/17 08:25 Dose: 100 mg Hydromorphone HCl (Dilaudid) 4 mg IVP Q4 PRN PRN Reason: Pain, severe (8-10) Last Admin: 01/11/17 12:07 Dose: 4 mg Dextrose/Sodium Chloride (Dextrose 5%-0.45% Ns 500 Ml) 500 mls @ 80 mls/hr IV .Q6H15M [facility] Stop: 01/11/17 16:14 Last Admin: 01/11/17 11:50 Dose: Not Given Sodium Chloride (Sodium Chloride 0.9%) 1,000 mls @ 250 mls/hr IV .Q4H [facility] Stop: 01/11/17 17:44 Last Admin: 01/11/17 10:14 Dose: 250 mls/hr Lactulose (Enulose) 10 gm PO DAILY PRN PRN Reason: Constipation Last Admin: 01/09/17 17:14 Dose: 10 gm Methadone HCl (Methadone) 10 mg PO QID [facility] Last Admin: 01/11/17 13:38 Dose: 10 mg Ondansetron HCl (Zofran Inj) 4 mg IVP Q6 PRN PRN Reason: Nausea/Vomiting Last Admin: 01/10/17 08:15 Dose: 4 mg Saliva Substitute (First Magic Mouthwash) 5 ml PO Q1H PRN PRN Reason: Pain, Mild (1-3) Last Admin: 01/10/17 08:14 Dose: 5 ml Vitamin A (Vitamin A&D) 1 applic TP Q8 PRN PRN Reason: Dry skin Last Admin: 01/09/17 13:09 Dose: 1 applic - Labs Labs: 01/11/17 04:00 01/11/17 04:00 PT 15.8 Seconds (9.8-13.1) H 01/07/17 10:33 INR 1.4 (0.9-1.2) H 01/07/17 10:33 APTT 30.3 Seconds (25.6-37.1) 01/07/17 10:33
[2017-01-12 07:53] VITALS: RESP 20
--- NOTE | 2017-01-12 14:44 | CP.PCM.PN ---
Subjective - Date & Time of Evaluation Date of Evaluation: 01/12/17 Time of Evaluation: 10:00 - Subjective Subjective: F/U Chronic pain / RUL Ca. Pt c/o of generalized pain, Pt said that the Dilaudid 4 mg q 4 hrs is not working. Objective - Vital Signs/Intake and Output Vital Signs (last 24 hours): Temp Pulse Resp BP Pulse Ox 99.2 F 93 H 20 129/84 99 01/12/17 07:52 01/12/17 07:52 01/12/17 07:52 01/12/17 07:52 01/12/17 07:52 - Medications Medications: Current Medications Alprazolam (Xanax) 1 mg PO TID PRN PRN Reason: Anxiety Last Admin: 01/12/17 00:25 Dose: 1 mg Docusate Sodium (Colace) 100 mg PO BID [facility] Last Admin: 01/12/17 08:39 Dose: 100 mg Hydromorphone HCl (Dilaudid) 4 mg IVP Q4 PRN PRN Reason: Pain, severe (8-10) Last Admin: 01/12/17 12:28 Dose: 4 mg Lactulose (Enulose) 10 gm PO DAILY PRN PRN Reason: Constipation Last Admin: 01/09/17 17:14 Dose: 10 gm Methadone HCl (Methadone) 10 mg PO QID [facility] Last Admin: 01/12/17 08:45 Dose: 10 mg Ondansetron HCl (Zofran Inj) 4 mg IVP Q6 PRN PRN Reason: Nausea/Vomiting Last Admin: 01/11/17 16:18 Dose: 4 mg Saliva Substitute (First Magic Mouthwash) 5 ml PO Q1H PRN PRN Reason: Pain, Mild (1-3) Last Admin: 01/10/17 08:14 Dose: 5 ml Vitamin A (Vitamin A&D) 1 applic TP Q8 PRN PRN Reason: Dry skin Last Admin: 01/09/17 13:09 Dose: 1 applic - Labs Labs: 01/11/17 04:00 01/11/17 04:00 PT 15.8 Seconds (9.8-13.1) H 01/07/17 10:33 INR 1.4 (0.9-1.2) H 01/07/17 10:33 APTT 30.3 Seconds (25.6-37.1) 01/07/17 10:33 - Constitutional Appears: No Acute Distress, Chronically Ill - Head Exam Head Exam: NORMAL INSPECTION - Eye Exam Eye Exam: PERRL - ENT Exam ENT Exam: Normal Exam - Neck Exam Neck Exam: Normal Inspection - Respiratory Exam Respiratory Exam: Decreased Breath Sounds (at bases) Additional comments: Tenderness on palpation R Hemithorax. - Cardiovascular Exam Cardiovascular Exam: REGULAR RHYTHM - GI/Abdominal Exam GI & Abdominal Exam: Soft, Normal Bowel Sounds - Extremities Exam Extremities Exam: Normal Inspection - Back Exam Back Exam: NORMAL INSPECTION - Neurological Exam Neurological Exam: Alert, Oriented x3. absent: Motor Sensory Deficit Additional comments: Forgetful at times. - Psychiatric Exam Psychiatric exam: Anxious - Skin Skin Exam: Normal Color, Warm Assessment and Plan (1) Neoplasm of lung, upper lobe, malignant Status: Acute (2) Stage 4 lung cancer Status: Acute (3) Urinary tract infection due to ESBL Klebsiella Status: Resolved (4) GORDY (acute kidney injury) Status: Chronic (5) General weakness Status: Acute (6) Chronic generalized pain Status: Acute (7) Anemia Status: Chronic (8) Brain metastasis Status: Acute (9) Malignant neoplasm metastatic to liver Status: Acute (10) Bone metastasis Status: Acute (11) Chemotherapy induced neutropenia Status: Acute (12) Anxiety Status: Chronic - Assessment and Plan (Free Text) Plan: Discussed with the Pharmacist if it is possible to DC Methadone and increase the Dilaudid.
--- NOTE | 2017-01-12 16:40 | CP.PCM.PN ---
Subjective - Date & Time of Evaluation Date of Evaluation: 01/12/17 Time of Evaluation: 16:39 - Subjective Subjective: General condition same . C/o severe pain unless he gets the dilaudid q 4hrs. Objective - Vital Signs/Intake and Output Vital Signs (last 24 hours): Temp Pulse Resp BP Pulse Ox 98.3 F 101 H 20 137/89 98 01/12/17 16:35 01/12/17 16:35 01/12/17 16:35 01/12/17 16:35 01/12/17 16:35 - Medications Medications: Current Medications Acetaminophen (Tylenol 325mg Tab) 650 mg PO Q4 PRN PRN Reason: Headache Last Admin: 01/12/17 16:13 Dose: 650 mg Alprazolam (Xanax) 1 mg PO TID PRN PRN Reason: Anxiety Last Admin: 01/12/17 15:05 Dose: 1 mg Docusate Sodium (Colace) 100 mg PO BID [facility] Last Admin: 01/12/17 16:33 Dose: 100 mg Hydromorphone HCl (Dilaudid) 4 mg IVP Q3 PRN PRN Reason: Pain, severe (8-10) Last Admin: 01/12/17 16:29 Dose: 4 mg Lactulose (Enulose) 10 gm PO DAILY PRN PRN Reason: Constipation Last Admin: 01/09/17 17:14 Dose: 10 gm Methadone HCl (Methadone) 10 mg PO DAILY [facility] Ondansetron HCl (Zofran Inj) 4 mg IVP Q6 PRN PRN Reason: Nausea/Vomiting Last Admin: 01/11/17 16:18 Dose: 4 mg Saliva Substitute (First Magic Mouthwash) 5 ml PO Q1H PRN PRN Reason: Pain, Mild (1-3) Last Admin: 01/10/17 08:14 Dose: 5 ml Vitamin A (Vitamin A&D) 1 applic TP Q8 PRN PRN Reason: Dry skin Last Admin: 01/09/17 13:09 Dose: 1 applic - Labs Labs: 01/11/17 04:00 01/11/17 04:00 PT 15.8 Seconds (9.8-13.1) H 01/07/17 10:33 INR 1.4 (0.9-1.2) H 01/07/17 10:33 APTT 30.3 Seconds (25.6-37.1) 01/07/17 10:33
[2017-01-13 06:25] LABS: BASO % 0.2 % (0.0-2.0); EOS % 0.1 % (0.0-4.0); HEMATOCRIT 25.3 % (35.0-51.0); LYMPH # 0.8 K/uL (1.0-4.3); LYMPH % 4.1 % (20.0-40.0); MEAN CELL VOLUME 82.9 fl (80.0-94.0); MEAN CORPUSCULAR HEMOGLOBIN 27.2 pg (27.0-31.0); MEAN CORPUSCULAR HGB CONC 32.8 g/dL (33.0-37.0); MEAN PLATELET VOLUME 7.3 fl (7.2-11.7); MONO # 1.6 K/uL (0.0-0.8); MONO % 8.1 % (0.0-10.0); NEUT # 17.1 K/uL (1.8-7.0); NEUT % 87.5 % (50.0-75.0); RED CELL DISTRIBUTION WIDTH 17.5 % (11.5-14.5); WHITE BLOOD COUNT 19.6 K/uL (4.8-10.8)
--- NOTE | 2017-01-13 08:07 | CP.PCM.CON ---
History of Present Illness - History of Present Illness History of Present Illness: 56 yo man known to me from previous admission has metastatic lung cancer is re- admitted for lethargy and intractable pain. Patient's condition has deteriorated considerably and last chemotherapy was recently administered. Supportive care has been started and patient is being optimized for transfer to rehab, likely today. Patient has unusually high tolerance from the beginning, when the cancer was first diagnosed, despite lack of chronic pain history. His pain has been difficult to manage, at one time on Methadone q4h and still without good relief. He's required high dose IV Dilaudid ATC when hospitalized, in addition to Methadone q4h. Currently he's on Dilaudid IV 4mg q3h, and the Methadone has been scaled back to once daily. Past Patient History - Infectious Disease Hx of Infectious Diseases: None - Past Medical History & Family History Past Medical History?: Yes - Past Social History Smoking Status: Never Smoked Alcohol: None Drugs: Denies (previous use in the past) Home Situation {Lives}: With Family - CARDIAC Hx Cardiac Disorders: Yes Hx Hypercholesterolemia: Yes Hx Hypertension: Yes - PULMONARY Hx Respiratory Disorders: Yes Hx Bronchitis: Yes - NEUROLOGICAL Hx Neurological Disorder: No - HEENT Hx HEENT Problems: No - RENAL Hx Chronic Kidney Disease: No - ENDOCRINE/METABOLIC Hx Endocrine Disorders: No - HEMATOLOGICAL/ONCOLOGICAL Hx Blood Disorders: Yes - INTEGUMENTARY Hx Dermatological Problems: No - MUSCULOSKELETAL/RHEUMATOLOGICAL Hx Musculoskeletal Disorders: No Hx Falls: No - GASTROINTESTINAL Hx Gastrointestinal Disorders: Yes Hx Hemorrhoids: Yes - GENITOURINARY/GYNECOLOGICAL Hx Genitourinary Disorders: No - PSYCHIATRIC Hx Psychophysiologic Disorder: Yes Hx Substance Use: No - SURGICAL HISTORY Hx Coronary Stent: Yes - ANESTHESIA Hx Anesthesia: Yes Hx Anesthesia Reactions: No Hx Malignant Hyperthermia: No Meds Allergies/Adverse Reactions: Allergies Allergy/AdvReac Type Severity Reaction Status Date / Time No Known Allergies Allergy Verified 01/07/17 10:01 - Medications Medications: Current Medications Acetaminophen (Tylenol 325mg Tab) 650 mg PO Q4 PRN PRN Reason: Headache Last Admin: 01/12/17 16:13 Dose: 650 mg Alprazolam (Xanax) 1 mg PO TID PRN PRN Reason: Anxiety Last Admin: 01/12/17 15:05 Dose: 1 mg Docusate Sodium (Colace) 100 mg PO BID [facility] Last Admin: 01/12/17 16:33 Dose: 100 mg Hydromorphone HCl (Dilaudid) 4 mg IVP Q3 PRN PRN Reason: Pain, severe (8-10) Last Admin: 01/13/17 05:42 Dose: 4 mg Lactulose (Enulose) 10 gm PO DAILY PRN PRN Reason: Constipation Last Admin: 01/09/17 17:14 Dose: 10 gm Methadone HCl (Methadone) 10 mg PO QID [facility] Last Admin: 01/12/17 23:45 Dose: 10 mg Ondansetron HCl (Zofran Inj) 4 mg IVP Q6 PRN PRN Reason: Nausea/Vomiting Last Admin: 01/11/17 16:18 Dose: 4 mg Saliva Substitute (First Magic Mouthwash) 5 ml PO Q1H PRN PRN Reason: Pain, Mild (1-3) Last Admin: 01/10/17 08:14 Dose: 5 ml Vitamin A (Vitamin A&D) 1 applic TP Q8 PRN PRN Reason: Dry skin Last Admin: 01/09/17 13:09 Dose: 1 applic Physical Exam - Respiratory Exam Respiratory Exam: NORMAL BREATHING PATTERN - Cardiovascular Exam Cardiovascular Exam: REGULAR RHYTHM Results - Vital Signs Recent Vital Signs: Last Vital Signs Temp 98.2 F 01/13/17 00:34 Pulse 100 H 01/13/17 00:34 Resp 20 01/13/17 00:34 BP 137/88 01/13/17 00:34 Pulse Ox 98 01/13/17 00:34 - Labs Result Diagrams: 01/13/17 06:05 01/11/17 04:00 Labs: Laboratory Results - last 24 hr 01/13/17 06:05 WBC 19.6 H D RBC 3.05 L Hgb 8.3 L Hct 25.3 L MCV 82.9 MCH 27.2 MCHC 32.8 L RDW 17.5 H Plt Count 80 L MPV 7.3 Neut % (Auto) 87.5 H Lymph % (Auto) 4.1 L Terry % (Auto) 8.1 Eos % (Auto) 0.1 Baso % (Auto) 0.2 Neut # 17.1 H Lymph # 0.8 L Terry # 1.6 H Eos # 0.0 Baso # 0.0 Assessment & Plan - Assessment and Plan (Free Text) Assessment: 56 yo man w/ metastatic cancer, difficult to manage pain due to tumor burden and high tolerance. For transfer to rehab soon, where IV pain medications aren' t an option. - start Fentanyl patch 100mcg/hr q72h - keep Methadone at 10mg qdaily to combat hyperalgesia - continue Dilaudid IV PRN for now - for transfer to rehab, can start Dilaudid 4mg PO q4h PRN for 4-7 pain, and Dilaudid 6mg PO q4h PRN for 8-10 pain
--- NOTE | 2017-01-13 11:48 | CP.PCM.PN ---
Subjective - Date & Time of Evaluation Date of Evaluation: 01/13/17 Time of Evaluation: 11:44 - Subjective Subjective: Pt continues to complain of a lot of pain all over body. He was seen by the pain medicine physician who added a fentanyl patch to the present analgesic regimen. Pt will probably be sent to sub acute rehab for conditioning, Objective - Vital Signs/Intake and Output Vital Signs (last 24 hours): Temp Pulse Resp BP Pulse Ox 98.3 F 96 H 20 126/88 98 01/13/17 08:04 01/13/17 08:04 01/13/17 08:04 01/13/17 08:04 01/13/17 08:04 - Medications Medications: Current Medications Acetaminophen (Tylenol 325mg Tab) 650 mg PO Q4 PRN PRN Reason: Headache Last Admin: 01/12/17 16:13 Dose: 650 mg Alprazolam (Xanax) 1 mg PO TID PRN PRN Reason: Anxiety Last Admin: 01/13/17 08:34 Dose: 1 mg Docusate Sodium (Colace) 100 mg PO BID [facility] Last Admin: 01/13/17 08:25 Dose: 100 mg Fentanyl (Duragesic) 1 patch TD Q3D [facility] PRN Reason: Protocol Last Admin: 01/13/17 09:50 Dose: 1 patch Hydromorphone HCl (Dilaudid) 4 mg IVP Q3 PRN PRN Reason: Pain, severe (8-10) Last Admin: 01/13/17 08:34 Dose: 4 mg Lactulose (Enulose) 10 gm PO DAILY PRN PRN Reason: Constipation Last Admin: 01/09/17 17:14 Dose: 10 gm Methadone HCl (Methadone) 10 mg PO DAILY [facility] Last Admin: 01/13/17 09:56 Dose: 10 mg Ondansetron HCl (Zofran Inj) 4 mg IVP Q6 PRN PRN Reason: Nausea/Vomiting Last Admin: 01/11/17 16:18 Dose: 4 mg Saliva Substitute (First Magic Mouthwash) 5 ml PO Q1H PRN PRN Reason: Pain, Mild (1-3) Last Admin: 01/10/17 08:14 Dose: 5 ml Vitamin A (Vitamin A&D) 1 applic TP Q8 PRN PRN Reason: Dry skin Last Admin: 01/09/17 13:09 Dose: 1 applic - Labs Labs: 01/13/17 06:05 01/11/17 04:00 PT 15.8 Seconds (9.8-13.1) H 01/07/17 10:33 INR 1.4 (0.9-1.2) H 01/07/17 10:33 APTT 30.3 Seconds (25.6-37.1) 01/07/17 10:33
[2017-01-13 16:26] VITALS: BP 121/81; PULSE 114; TEMP 99.4; O2SAT 97
--- NOTE | 2017-01-13 17:13 | CP.PCM.PN ---
Subjective - Date & Time of Evaluation Date of Evaluation: 01/13/17 Time of Evaluation: 12:00 - Subjective Subjective: F/U RUL Ca. Pt c/o of generalized pain. Objective - Vital Signs/Intake and Output Vital Signs (last 24 hours): Temp Pulse Resp BP Pulse Ox 99.4 F 114 H 20 121/81 97 01/13/17 15:30 01/13/17 15:30 01/13/17 15:30 01/13/17 15:30 01/13/17 15:30 - Medications Medications: Current Medications Acetaminophen (Tylenol 325mg Tab) 650 mg PO Q4 PRN PRN Reason: Headache Last Admin: 01/12/17 16:13 Dose: 650 mg Alprazolam (Xanax) 1 mg PO TID PRN PRN Reason: Anxiety Last Admin: 01/13/17 08:34 Dose: 1 mg Docusate Sodium (Colace) 100 mg PO BID [facility] Last Admin: 01/13/17 08:25 Dose: 100 mg Fentanyl (Duragesic) 1 patch TD Q3D [facility] PRN Reason: Protocol Last Admin: 01/13/17 09:50 Dose: 1 patch Heparin Sodium (Porcine) (Heparin Lock Flush) 500 units IVF ONCE ONE Stop: 01/13/17 16:25 Hydromorphone HCl (Dilaudid) 4 mg IVP Q3 PRN PRN Reason: Pain, severe (8-10) Last Admin: 01/13/17 15:02 Dose: 4 mg Lactulose (Enulose) 10 gm PO DAILY PRN PRN Reason: Constipation Last Admin: 01/09/17 17:14 Dose: 10 gm Methadone HCl (Methadone) 10 mg PO DAILY [facility] Last Admin: 01/13/17 09:56 Dose: 10 mg Ondansetron HCl (Zofran Inj) 4 mg IVP Q6 PRN PRN Reason: Nausea/Vomiting Last Admin: 01/11/17 16:18 Dose: 4 mg Saliva Substitute (First Magic Mouthwash) 5 ml PO Q1H PRN PRN Reason: Pain, Mild (1-3) Last Admin: 01/10/17 08:14 Dose: 5 ml Vitamin A (Vitamin A&D) 1 applic TP Q8 PRN PRN Reason: Dry skin Last Admin: 01/09/17 13:09 Dose: 1 applic - Labs Labs: 01/13/17 06:05 01/11/17 04:00 PT 15.8 Seconds (9.8-13.1) H 01/07/17 10:33 INR 1.4 (0.9-1.2) H 01/07/17 10:33 APTT 30.3 Seconds (25.6-37.1) 01/07/17 10:33 - Constitutional Appears: No Acute Distress, Chronically Ill - Head Exam Head Exam: NORMAL INSPECTION - Eye Exam Eye Exam: PERRL - ENT Exam ENT Exam: Normal Exam - Neck Exam Neck Exam: Normal Inspection - Respiratory Exam Respiratory Exam: Decreased Breath Sounds (at bases) Additional comments: Tenderness on palpation R Hemithorax. - Cardiovascular Exam Cardiovascular Exam: REGULAR RHYTHM - GI/Abdominal Exam GI & Abdominal Exam: Soft, Normal Bowel Sounds - Extremities Exam Extremities Exam: Normal Inspection - Back Exam Back Exam: NORMAL INSPECTION - Neurological Exam Neurological Exam: Alert, Oriented x3. absent: Motor Sensory Deficit Additional comments: Forgetful at times - Psychiatric Exam Psychiatric exam: Anxious - Skin Skin Exam: Normal Color, Warm Assessment and Plan (1) Neoplasm of lung, upper lobe, malignant Status: Acute (2) Stage 4 lung cancer Status: Acute (3) GORDY (acute kidney injury) Status: Chronic (4) General weakness Status: Acute (5) Chronic generalized pain Status: Acute (6) Anemia Status: Chronic (7) Brain metastasis Status: Acute (8) Malignant neoplasm metastatic to liver Status: Acute (9) Anxiety Status: Chronic (10) Bone metastasis Status: Acute (11) Hx of urinary tract infection Status: Acute - Assessment and Plan (Free Text) Plan: Pt discharged to [facility] at [facility], I will f/u Pt in these facility.
== END 2017-01-13 16:42 | DRG 948 ==
LOC: H.ER 09:13 → H.ERHOLD 12:56 → H.MEDSURG1 14:15 → OBSVTOIN 01-08 15:39
PROVIDERS: ADMIT Internal Medicine Pulmonary Disease; ATTEND Internal Medicine Pulmonary Disease
DX: G89.3 Neoplasm related pain (acute) (chronic) (principal); N17.9 Acute kidney failure, unspecified; C78.7 Secondary malignant neoplasm of liver and intrahepatic bile duct; D70.1 Agranulocytosis secondary to cancer chemotherapy; C79.31 Secondary malignant neoplasm of brain; C34.11 Malignant neoplasm of upper lobe, right bronchus or lung; D64.9 Anemia, unspecified; C79.51 Secondary malignant neoplasm of bone; E78.00 Pure hypercholesterolemia, unspecified; I25.10 Atherosclerotic heart disease of native coronary artery without angina pectoris; Z95.5 Presence of coronary angioplasty implant and graft; R53.1 Weakness; F41.9 Anxiety disorder, unspecified; I10 Essential (primary) hypertension; T45.1X5A Adverse effect of antineoplastic and immunosuppressive drugs, initial encounter